=== PATIENT | female | born 1935 | race Caucasian/White ===

== ENCOUNTER → 2021-01-10 15:16 | Outpatient (BNVA) | payer MEDICARE, SELFPAY | PROVIDERS: Family Provider Nurse Practitioner Family; Visit Provider Nurse Practitioner Family | DX: Z79.01 Long term (current) use of anticoagulants (principal) | CPT/HCPCS: 85610 ==

== ENCOUNTER → 2021-01-13 09:20 | Outpatient (BNVA) | payer MEDICARE, SELFPAY | PROVIDERS: Family Provider Nurse Practitioner Family; Visit Provider Nurse Practitioner Family | DX: Z79.01 Long term (current) use of anticoagulants (principal) | CPT/HCPCS: 85610 ==

== ENCOUNTER → 2021-05-21 07:58 | Outpatient (BNVA) | payer MEDICARE, SELFPAY | PROVIDERS: Family Provider Nurse Practitioner Family; PCP Nurse Practitioner Family; Visit Provider Nurse Practitioner | DX: M54.16 Radiculopathy, lumbar region (principal); Z98.890 Other specified postprocedural states | CPT/HCPCS: 99204 ==

== ENCOUNTER 2021-05-27 10:51 | Outpatient (CLI) | payer MEDICARE, SELFPAY ==
--- NOTE | 2021-05-27 11:00 | MR_ITS ---
WS: [id number] MRI LUMBAR SPINE NONCONTRAST TECHNIQUE: Sagittal T1, T2 and STIR imaging. Axial T1 and T2 imaging. CLINICAL INFORMATION: M54.16 - Radiculopathy, lumbar region COMPARISON: MRI FINDINGS: Mild lumbar curve. No acute compression. No high-grade central canal stenosis. Prior postoperative ch anges laminectomy defects L2-L3 L3-L4 L4-L5. Disc space narrowing worse at L3-L5. Tiny disc protrusio ns in the lower thoracic spine. L1-L2: Mild annular bulging. Narrowing of the left subarticular recess. Moderate facet arthropathy. M ild left foraminal narrowing. L2-L3: Mild disc bulging and osteophytic ridging. Impingement on the traversing L3 nerve roots bilate rally. Moderate facet arthropathy. Mild left foraminal narrowing. Laminectomy defects. L3-L4: Laminectomy defects. Mild annular bulging with slight impingement on the right subarticular re cess and traversing right L4 nerve root. Mild right foraminal narrowing. Moderate facet arthropathy. L4-L5: Mild disc bulging with slight impingement on the traversing L5 nerve roots bilaterally. Mild c entral canal stenosis. Laminectomy defects. Moderate facet arthropathy. Moderate right foraminal narr owing. L5-S1: Mild disc bulging and osteophytic ridging. Slight impingement on the traversing left S1 nerve root. Mild left and no right foraminal narrowing. Moderate facet arthropathy. Bilateral renal cysts. Hemorrhagic right renal cyst with hematocrit level. Small disc protrusions in the cervical spine at C5-C6 and C6-C7 with slight contact of the cervical cord and mild central canal stenosis. Visualized pelvic bony structures: Normal. Paravertebral soft tissues: Normal. MR/MR lumbar spine wo con* [id number] IMPRESSION: 1. Mild lumbar curve. No acute compression. 2. Prior laminectomy defects L2-L4. 3. Mild central canal stenosis L4-5 due to disc bulging and osteophytic ridgin g with moderate facet arthropathy. Impingement on the right greater than left L 5 nerve roots at this level. 4. Moderate right L4-5 foraminal narrowing contacts the exiting right L4 nerve root. 5. Mild left L5-S1 foraminal narrowing. 6. Narrowing of the left L1-2 and right L2-3 subarticular recess. 7. Slight impingement on the right L3-4 subarticular recess with mild right L3 -4 foraminal narrowing.
== END 2021-05-27 10:52 | disposition home or self-care (01) ==
PROVIDERS: PCP Nurse Practitioner Family; Visit Provider Nurse Practitioner
DX: M54.16 Radiculopathy, lumbar region (principal); M96.1 Postlaminectomy syndrome, not elsewhere classified; M48.061 Spinal stenosis, lumbar region without neurogenic claudication
CPT/HCPCS: 72148

== ENCOUNTER → 2021-07-17 11:59 | Outpatient (BNVA) | payer MEDICARE, SELFPAY | PROVIDERS: PCP Nurse Practitioner Family; Referring Provider Nurse Practitioner; Visit Provider Specialist | DX: G62.89 Other specified polyneuropathies (principal) | CPT/HCPCS: 95909 ==

== ENCOUNTER → 2021-07-21 16:31 | Outpatient (BNVA) | payer MEDICARE, SELFPAY | PROVIDERS: PCP Nurse Practitioner Family; Visit Provider Specialist | DX: G62.9 Polyneuropathy, unspecified (principal) | CPT/HCPCS: 82607; 82746; 83921; 84260; 84443; 85651; 86140 ==

== ENCOUNTER → 2021-07-29 13:50 | Outpatient (BNVA) | payer MEDICARE, SELFPAY | PROVIDERS: PCP Nurse Practitioner Family; Referring Provider Specialist; Visit Provider Orthopaedic Surgery | DX: M54.16 Radiculopathy, lumbar region (principal) | CPT/HCPCS: 72110 ==

== ENCOUNTER → 2021-09-25 12:31 | Outpatient (BNVA) | payer MEDICARE, SELFPAY | PROVIDERS: PCP Nurse Practitioner Family; Visit Provider Orthopaedic Surgery | DX: Z01.812 Encounter for preprocedural laboratory examination (principal); Z20.822 Contact with and (suspected) exposure to COVID-19 | CPT/HCPCS: 87635 ==

== ENCOUNTER 2021-09-29 11:47 | Inpatient (IN) | payer MEDICARE, SELFPAY ==
[2021-09-25 11:05] VITALS: BMI 31.7
--- NOTE | 2021-09-25 12:19 | ANES.PREANE2 ---
Pre-Anesthetic Assessment Pre-Anesthetic Assessment: Height/Weight: Height 1.63 m Weight 83.915 kg Proposed Procedure: Operation Date: 09/29/21 07:00 Proposed Procedures p Posterior Lumbar Interbody Fusion T10 pelvis L3/4 L4/5 40098 85495 X6 50053 95058 71744 00950 14852(Not Applicable) - Candido Lluvia Lauryn, DO s Lumbar Spine Decompression L3/4(Not Applicable) - Candido H Lauryn, DO Was Beta Dain taken within 24 hours: Yes Was Clonidine taken within 24 hours: N/A Social: Social History: No alcohol and No tobacco Comment: Takes Roxana (THC) oil Exam: Pre-Anes Outpt Exam: alert, oriented x 3, clear to auscultation bilaterally and regular rate & rhythm Airway: Submandibular: WNL Cervical ROM: WNL Dentition: Partials CV/HEM: CV/HEM: Anemia, DVT (PE--Xarelto) and HTN Comments: Recent Stress test/cath unremarkable for coronary dz, EF 63% Metabolic: Metabolic: Morbid obesity Musc/skel: Musc/skel: Lower Back Pain Neuropsych: Neuropsych: Anxiety, Depression and Neuropathy Anesthetic Plan: ASA status: 3 Anesthesia: General Other: Plan A.line, type and cross (OK to transfuse) Risk of > 500 ml blood loss (7ml/kg in children): Yes, adequate IV access and fluids planned PFSH Anesthesia PFSH: Medical History Chronic back pain COPD (chronic obstructive pulmonary disease) Depression with anxiety Hx of blood clots Hyperlipidemia Hypertension Lumbar radiculopathy Restless leg syndrome Surgical History H/O: hysterectomy History of back surgery Social History History of recent travel: No Data Anesthesia Cardiac Studies: No Data to Display
[2021-09-29] VITALS (37 sets, daily range): BP systolic 90–132; BP diastolic 44–111; PULSE 70–104; RESP 12–20; TEMP 36.4–37.1; O2SAT 90–100; BMI 31.7
--- NOTE | 2021-09-29 | XR_ITS ---
WS: [id number] C-ARM RADIOGRAPHS LUMBAR SPINE; 9 IMAGES HISTORY: fusion and decompression COMPARISON: None available. Intraoperative imaging during extensive thoracolumbar fusion. Quality of examination is not sufficien t to determine levels. Rods and screws extend from the mid thoracic spine into the sacrum. Large lami nectomy defects are noted centrally throughout the lumbar spine. XR/XR lumbar spine 2-3V* [id number] IMPRESSION: Extensive posterior fusion extending from the thoracic spine to the sacrum.
--- NOTE | 2021-09-29 | SCC_ITS ---
Procedure Done: 1. L5/S1 Interbody fusion with posterolateral fusion 2. Instrumentation T10-S1 3. Lumbopelvic fixation (instrumentation 4. Cage at L5/S1 5. Laminectomy L5 6. use of autograft from same incision 7. allograft 8. Bone marrow aspirate from right iliac crest 9. Computer navigation / Stereotactic for the spine 11 seconds of fluoroscopic guidance, for a cumulative dose of 80.2 mGy, was provided to Dr. Combs by the radiology department. C-arm images of the lumbar spine were saved for the patient's permanent record. [facility]ITALT[facility]
--- NOTE | 2021-09-29 06:13 | ECG_ITS ---
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 Measurements Intervals [place] Rate: 109 P: AL: QRS: 27 QRSD: 88 T: 60 QT: 326 QTc: 439 Interpretive Statements ATRIAL FIBRILLATION WITH RAPID VENTRICULAR RESPONSE WITH ABERRANT CONDUCTION OR VENTRICULAR PREMATURE COMPLEXES NONSPECIFIC T-WAVE ABNORMALITY ABNORMAL RHYTHM ECG Compared to ECG 01/26/2019 09:56:59 Ventricular premature complex(es) now present Aberrant conduction of supraventricular beat(s) now present T-wave abnormality now present Sinus rhythm no longer present Electronically Signed On 09-29-2021 20:07:36 RELATIONSHIP ADVISOR by Glenna Coelho M.D. [id number]
[2021-09-29] MEDS: sodium chloride 0.9% 1,000 ML 30 ML IV (06:32)
[2021-09-29] MEDS: metoprolol tartrate 1 mg/1 mL SDV 5 mL 5 MG IVP (06:52)
[2021-09-29] MEDS: fentaNYL 50 mcg/mL INJ 2mL IVP (06:54)
--- NOTE | 2021-09-29 06:55 | ANES.PAUD2 ---
Pre-Anesthetic Update Pre-Anesthetic Assessment: Date of Surgery/Procedure: 09/29/21 Preop Diagnosis: DDD, lumbar radiculopathy Proposed Procedure: Operation Date: 09/29/21 07:00 Proposed Procedures p Posterior Lumbar Interbody Fusion T10 pelvis L3/4 L4/5 01285 26036 X6 31594 02707 19787 51000 90521(Not Applicable) - Candidoche Teixeira Caron, DO s Lumbar Spine Decompression L3/4(Not Applicable) - Candido H Lauryn, DO Any changes to Pre-Anesthetic Assessment?: Yes Changes from Pre-Anesthetic Assessment: A fib w/ RVR - Patient had recent stress test negative for ischemia this month and EF of 63%, currently on metoprolol and was taking xarelto for DVT. Discussed with Dr. Meliton MD. Patient should be able to proceed with surgery with rate control Last Intake: Intake Last Liquid Date 09/28/21 Last Liquid Time 17:00 Last Solid Date 09/28/21 Last Solid Time 17:00 Vitals: Temperature 98.3 F 09/29/21 06:07 Temperature Source Temporal Artery S can 09/29/21 06:07 Pulse Rate 93 09/29/21 06:07 Respiratory Rate 18 09/29/21 06:07 Blood Pressure 132/111 09/29/21 06:07 Blood Pressure Kathy n 118 09/29/21 06:07 Pulse Oximetry 95 09/29/21 06:07 Oxygen Delivery Me thod 09/29/21 06:07 Exam: Pre-Anes Outpt Exam: alert, oriented x 3, clear to auscultation bilaterally and regular rate & rhythm Cardiac Studies: No Data to Display
[2021-09-29 07:04] LABS: Basophils % 0.5 %; Eosinophils # 0.1 10^3/uL (0.0-0.8); Eosinophils % 1.8 %; Hematocrit 44.8 % (37.0-47.0); Hemoglobin 13.6 g/dL (11.5-15.3); Lymphocytes # 1.7 10^3/uL (0.8-4.8); Lymphocytes % 22.8 %; Mean Corpuscular HGB Conc 30.4 g/dL (30.0-36.0); Mean Corpuscular Hemoglobin 31.2 pg (28.0-34.0); Mean Corpuscular Volume 102.8 fl (81-99); Mean Platelet Volume 10.2 fL (7.4-10.4); Monocytes # 0.8 10^3/uL (0.2-0.9); Monocytes % 10.7 %; Neutrophils # 4.74 10^3/uL (1.8-7.7); Neutrophils % 63.9 %; Nucleated Red Blood Cells % 0 %; Platelet Count 202 10^3/cmm (130-400); Red Blood Count 4.36 10^6/uL (4.1-5.3); Red Cell Distribution Width 12.5 % (12.1-15.1); White Blood Count 7.4 10^3/uL (4.0-10.0)
[2021-09-29 07:15] LABS: Anion Gap 13.8 (5-19); Blood Urea Nitrogen 25 mg/dL (8-23); Calcium 8.9 mg/dL (8.5-10.5); Carbon Dioxide 29 mmol/L (22-29); Chloride 107 mmol/L (98-107); Glucose 114 mg/dL (65-115); Osmolality Calculated 305 mOsm/kg (285-295); Potassium 4.8 mmol/L (3.5-5.1); Sodium 145 mmol/L (136-145)
--- NOTE | 2021-09-29 07:24 | W.PM.OPSUD ---
Surgery/Procedure H&P Update DATE OF PROCEDURE: September 29, 2021 DATE H&P PERFORMED: 09/09/21 H&P UPDATE INFORMATION: I have reviewed H&P completed within last 30 days, I have examined patient prior to procedure and No changes to prior documentation PREOP DIAGNOSIS: DDD, lumbar radiculopathy PLANNED PROCEDURE: Operation Date: 09/29/21 07:00 Proposed Procedures p Posterior Lumbar Interbody Fusion T10 pelvis L3/4 L4/5 72671 59591 X6 13678 73031 77976 10144 26144(Not Applicable) - DO chirag Hernandez Lumbar Spine Decompression L3/4(Not Applicable) - Candido Combs DO
[2021-09-29] MEDS: clindamycin 900 MG/50 ML PREMIX 100 MG IV ×3 (07:30→22:51)
--- NOTE | 2021-09-29 10:08 | SUR.OPER ---
called and notified him of surgical start and surgical progress.
[2021-09-29 10:48] LABS: Hematocrit 35.6 % (37.0-47.0)
--- NOTE | 2021-09-29 11:07 | SUR.OPER ---
Called notified him of surgical progress.
[2021-09-29] MEDS: vancomycin 1,000 MG SDV 1000 MG (11:08)
[2021-09-29] MEDS: heparin, porcine 1,000 unit/mL INJ 10 mL 10000 UNIT IRRIGATION (11:09)
--- NOTE | 2021-09-29 12:02 | P.OP_ITS ---
Operative Report Date of procedure: September 29, 2021 Pre-op Diagnosis: degen scoliosis; neurogenic cladication Post-op diagnosis: same Procedure Done: 1. L5/S1 Interbody fusion with posterolateral fusion 2. Instrumentation T10-S1 3. Lumbopelvic fixation (instrumentation 4. Cage at L5/S1 5. Laminectomy L5 6. use of autograft from same incision 7. allograft 8. Bone marrow aspirate from right iliac crest 9. Computer navigation / Stereotactic for the spine Surgeon: Candido Combs Television Production Clerk: aKilash Barrera Television Production Clerk: The medical surgical tech, Kailash Barrera, PAC was needed for his expertise under the microscope. He was important and necessary throughout the procedure to complete in a safe and timely manner. He assisted with patient positioning prepping and draping tissue retraction suctioning of the operative field protection of the dural sac and tissue closure Anesthesia: General Estimated blood loss (mL): 1,000 Condition: stable Disposition: PACU Procedure: 1. L5/S1 Interbody fusion with posterolateral fusion 2. Instrumentation T10-S1 3. Lumbopelvic fixation (instrumentation 4. Cage at L5/S1 5. Laminectomy L5 6. use of autograft from same incision 7. allograft 8. Bone marrow aspirate from right iliac crest 9. Computer navigation / Stereotactic for the spine Patient is brought to the operative suite. After undergoing anesthesia, the patient had neuro monitoring attached. Patient was then placed in the prone position on the Pillo table. All areas of impingement were well-padded. Patient was then prepped and draped in the normal sterile fashion. Skin incision was then made oFrom T10 to sacrum. Subperiosteal dissection was made out to the transverse processes of T10 down to L5 bilaterally as well as the sacral ala bilaterally. Once the exposure was complete attention was then brought to getting Bone marrow aspirate. The [employer] bone marrow aspirate kit was used to aspirate bone marrow aspirate. This was done by using the sharp probe to open up the bone right iliac crest. Aspiration was performed and then the blunt probe was then used to dissect down to through the bone tunnel. An aspirating well drawn back a millimeter approximately 20 cc of bone marrow aspirate was used. And mixed with the allograft and autograft bone that will be used. Next attention was brought to placing the fiducial for the computer navigation for the spine. Stab incision is made over the right iliac crest the fiducial pin was inserted. A second pin was also inserted. And then the fiducial was attached. This was linked into the computer. And then the C-arm was brought into spin and all this information was linked in the computer in order to facilitate using computer navigation for the spine. The technique for placing the pedicle screws was to use a drill followed by the gearshift probe connecte to computer navigation. Followed by the ball probe to feel the superior inferior medial lateral baez of the pedicles. Then placement of the screws using computer navigation. Was done at each pedicle. Screws were placed at T10 bilaterally down to S1 bilaterally. The L4 screw on the right was skipped becasue pedicle was felt to be too narrow. Iliac screws were placed using the computer navigation. These were Sacral Ala iliac screws placed into the ilac crests throught the appropriate bone column. Same technique as pedicle screws were used. These were 70 mm screws Next attention was brought to performing the laminectomy ofL5. This was done using the high-speed bur Kerrisons and curettes. Once the lamina was removed and then attention was brought to performing a partial facetectomy on the contralateral side. This was done again using the high-speed bur curettes and Kerrisons. The ligamentum flavum was taken down bilaterally from L5 to S1. Attention was then brought to the facet on the ipsilateral side. The facet was taken down. The S1 nerve was decompressed as it passed around the S1 pedicle. The laminectomy was done for purposes of decompressing the nerve as well as placement of the cage. The L5 nerve was identified as it traversed through the L5/S1 foramen. The thecal sac was identified and retracted. The L5/S1 disc space was identified. Using a knife the disc base was opened. And then sequential marisabel were placed. The first shaver was a 6 and the last shaver was a 8. Using a pituitary and down going curette the endplates were scraped and disc material was removed from the space. Once adequate decompression of the disc base was felt to be had. Osteoamp sponge was packed into the anterior aspect of the disc base. Then a size 8 cage from [employer] was placed after packing osteoamp into the cage. While placing the cage the thecal sac and S1 nerve was protected. C arm was used to ensure that the cages placed in the appropriate position. Attention was then brought to attaching the rods to the screws placed in the LT10 bilaterally down to S1 bilaterally also attaching onto the iliac screws. Caps were torqued into position. Locking the construct in place. Wound was copiously irrigated and then attention was brought to decorticating the facets and transverse processes laterally. Bone that was taken down from the lamina was used along with osteoamp fibers and sponges were packed into the lateral gutters along the facet joints. This was done bilaterally. Wound was then closed in a layered fashion starting with the thoracolumbar fascia. 0-vicryl was used the sub cutaneous tissue was closed with 2-0 vicryl and skin with 4-0 monocryl. Glue was then used to seal the skin and a steril dressing was applied. Patient was then placed in the supine position. The endotracheal tube was removed and patient was transferred to the PACU in stable condition.
--- NOTE | 2021-09-29 12:48 | PC.NURSE ---
18g IV in left ac placed by FINISHING RANGE SUPERVISOR during surgery
[2021-09-29 13:14] LABS: Hematocrit 32.8 % (37.0-47.0)
[2021-09-29 13:52] LABS: ABG PCO2 57.9 mmHg (35-45); ABG PH Result 7.27 (7.35-7.45); Arterial Blood Gas Hematocrit 31.5 % (37-47); Base Excess ABG -1.2 mmol/L (-2.0-2.0); Blood Gas Allen Test Pos; Blood Gas Sample Type Arterial; Carboxyhemoglobin 0.9 %THgb (0.4-20.1); HCO3 ABG 26.4 mmol/L (22-26); HGB O2 Sat 92.1 % (95-100); Ionized Calcium Level - ABG 1.2 mmol/L (1.1-1.4); Methemoglobin 1.2 % (0.4-1.5); PO2 ABG 73.3 mmHg (80.0-100.0); Potassium Level - ABG 4.3 mmol/L (3.5-5.0); Total Hemoglobin 10.3 g/dL (12-16)
--- NOTE | 2021-09-29 13:52 | P.CONIM_ITS ---
Providers/Reason For Consult Consulting Physician/Specialty*: Cameron Garcia MD, hospitalist Reason for Consult*: Medical management Attending Physician: Candido Combs DO Primary Care Provider: June Merchant History of Present Illness History of Present Illness Maria Teresa Woodruff is a 86 year old female who presented with chronic back pain for surgery today per Dr. Combs. From my understanding, she did not take her beta-marie today. She received Lopressor 5 mg IV prior to start of surgery. As surgery was underway she had a fair amount of blood loss, and bradycardia developed. She received atropine, as well as some epinephrine. This stabilized prior to her transfer to the PACU. Patient is not able to give a significant history currently secondary to sleepiness. Vital signs are stable. Ultimately estimated blood loss was 1100 cc and she received 250 cc of colloid, 2200 cc of isotonic fluid. Review of Systems General: Reports: ROS unobtainable due to mental status (Patient sleepy, recovering from sedation) Meds/Allergies Home Medications and Allergies Home Medications Medication Instructions Recorded Confirmed Last Taken Type metoprolol tartrate 25 mg tablet 12.5 mg PO BID 01/14/21 09/29/21 09/28/21 17:00 History potassium chloride 10 mEq 10 meq PO BID 01/14/21 09/29/21 09/28/21 07:00 History capsule,extended release rivaroxaban 20 mg tablet 20 mg PO DAILY #90 tab 01/14/21 09/29/21 09/25/21 Rx ropinirole 4 mg tablet 4 mg PO .hs tab 01/14/21 09/29/21 09/28/21 19:30 History venlafaxine 150 mg tablet,extended 150 mg PO DAILY 01/14/21 09/29/21 09/28/21 07:00 History release 24 hr ergocalciferol (vitamin D2) 1,250 1,250 mcg PO DAILY 05/21/21 09/29/21 09/28/21 History mcg (50,000 unit) capsule hydrocodone 5 mg-acetaminophen 325 1 tab PO Q6H PRN 05/21/21 09/29/21 09/25/21 History mg tablet clobetasol 0.05 % topical gel 1 applic TOPICAL DAILY 09/09/21 09/29/21 09/27/21 History losartan 25 mg tablet 25 mg PO DAILY 09/09/21 09/29/21 09/28/21 07:00 History meloxicam [Mobic] 1 mg PO DAILY 09/25/21 09/29/21 09/28/21 07:00 History Allergies Allergy/AdvReac Type Severity Reaction Status Date / Time amoxicillin Allergy rash Verified 09/29/21 05:59 morphine Allergy nausea, Verified 09/29/21 05:59 hyper Penicillins Allergy rash Verified 09/29/21 05:59 Tetanus Vaccines and Toxoid Allergy unk Verified 09/29/21 05:59 Current Medications Current Medications Generic Name Dose Route Start Last Admin Trade Name Freq PRN Reason Stop Dose Admin Fentanyl 50 mcg 09/29/21 05:40 09/29/21 06:54 Fentanyl 50 Mcg/Ml Inj 2ml IVP 50 mcg Q10M PRN Administration Preop Pain Sodium Chloride 1,000 mls @ 30 mls/hr 09/29/21 05:45 09/29/21 11: Sodium Chloride 0.9% IV 09/30/21 05:44 Infused .Q24H LV Infusion PFSH Acute PFSH: Medical History (Updated 09/29/21 @ 14:05 by Cameron Garcia MD) Atrial fibrillation Chronic back pain COPD (chronic obstructive pulmonary disease) Uses trilogy at night with 2 L. Typically not on oxygen during day. Coronary artery disease Depression Depression with anxiety DVT (deep venous thrombosis) History of cancer of vulva Hx of blood clots Hyperlipidemia Hypertension Lumbar radiculopathy Obstructive sleep apnea Pulmonary embolism Restless leg syndrome Surgical History (Updated 09/29/21 @ 13:56 by Cameron Garcia MD) H/O: hysterectomy History of back surgery History of coronary artery stent placement History of knee replacement History of tonsillectomy Presence of vena cava filter Family History (Updated 09/29/21 @ 13:56 by Cameron Garcia MD) Other Cancer Social History (Updated 09/29/21 @ 13:56 by Cameron Garcia MD) Smoking and tobacco status: former smoker Alcohol intake: current Alcohol intake frequency: few times a month History of recent travel: No Vitals/I&O/Wt Last Vital Signs Temp 98.5 F 09/29/21 12:42 Pulse 75 09/29/21 13:45 Resp 15 09/29/21 13:45 BP 118/78 09/29/21 13:45 Pulse Ox 95 09/29/21 13:45 09/28/21 09/29/21 09/29/21 22:59 06:59 14:59 Intake Total 2350 / 2350 Output Total 1450 / 1450 Balance 900 / 900 Physical Exam Narrative: EXAM NARRATIVE: General exam is a sleepy female, who will awaken to name and follow a few brief instructions. HEENT: Pupils were round. Oropharynx clear. Neck is supple no lymphadenopathy or thyromegaly Cardiovascular irregular, irregular with controlled rate Lungs diminished breath sounds bilaterally but no wheezes or crackles. Urinary Catheter Management^: Long: Cath Placed During This Visit: yes Urinary Catheter Date of Insertion: 09/29/21 Urinary Catheter Time of Insertion: 07:45 Data Other Data: Other data: EKG demonstrated atrial fibrillation, normal axis, rate of 109 TSH normal July 2021 Baseline hemoglobin 13.6, now 10 following surgery ABG demonstrates a pH of 7.27, PCO2 58, PO2 73 Covid PCR not detected September 25 A&P Assessment and plan (1) Lumbar stenosis with neurogenic claudication: Status post fusion with laminectomy, instrumentation and cage Status: Acute (2) History of pulmonary embolism: Xarelto held prior to surgery. Significant amount of estimated blood loss at 1100 cc and already 200 out of drain. Hold on further anticoagulation until tomorrow's reassessment. Note that she has an IVC filter. Status: Acute (3) Bradycardia: Multifactorial. Although she held her metoprolol prior to surgery she received Lopressor IV prior to surgery. She then had significant estimated blood loss. Currently her heart rate is stabilized. She did receive atropine, and epinephrine to improve bradycardia in the 30s during surgery. She did not have evidence of heart block. Telemetry Hold metoprolol currently Status: Acute (4) Anemia: Consistent with acute postoperative blood loss anemia Continue to monitor closely, repeating hemoglobin tomorrow. Sooner if significant output from drain. If anemia is symptomatic, or less than 7 transfuse. Status: Acute (5) COPD (chronic obstructive pulmonary disease): Has chronic COPD for which she uses trilogy at night. History of some CO2 narcosis in the past. In the postoperative period she has evidence of acute hypercarbic respiratory failure, superimposed on what sounds like chronic respiratory failure. BiPAP is going to be initiated, and as she recovers from anesthesia this can likely be discontinued other than when she is sleeping. She may use her home trilogy during this time. Status: Acute (6) Atrial fibrillation: Hold anticoagulation and beta-marie currently. We will likely need to reinstitute metoprolol tomorrow Telemetry Status: Acute Additional A&P Information Multiple other medical problems as outlined by past medical history CODE STATUS per primary. Patient too sleepy for me to get an idea of what this desire is. Secondary to significant blood loss during surgery, another 200 and the drain would hold off on anticoagulation currently and consider tomorrow if no significant bleeding. Consult Attestations Medical Necessity Statement: As per primary Time Spent in Patient Care: Greater than 35 minutes Coding Level of Care Code Acute Refrigeration Unit Repairer for Garett Leija Diagnoses Lumbar stenosis with neurogenic claudication M48.062 History of pulmonary embolism Z86.711 Bradycardia R00.1 Anemia D64.9 COPD (chronic obstructive pulmonary disease) J44.9 Atrial fibrillation I48.91
[2021-09-29 13:53] LABS: Alveolar-Arterial Oxygen Gradi 3.7 mmHg (5-10); Blood Gas Operator Identificat MONRO; Blood Gas Sample Site Radial, right; Oxygen Device NC
--- NOTE | 2021-09-29 14:30 | PC.NURSE ---
Art line removed and pressure dressing applied to right wrist after pressure was held to site.
--- NOTE | 2021-09-29 14:51 | ANE.PACU2 ---
Inpatient post-anesthesia follow up: Airway intact: Yes Vital signs: Temperature 98.1 F Pulse Rate 76 Respiratory Rate 18 Blood Pressure 107/65 Pulse Oximetry 92 Oxygen Delivery Me thod Nasal Cannula Oxygen Flow Rate 1 Fraction of Inspir ed Oxygen Hydration adequate: Yes Nausea and vomiting: No Pain level: 2 Mental status: Baseline
--- NOTE | 2021-09-29 15:58 | PC.RESP ---
PT WAS STILL ASLEEP . Unable to do IS. This was done at 1340
[2021-09-29] MEDS: lactated ringers 1,000 ML 90 ML IV (16:27)
--- NOTE | 2021-09-29 16:36 | PC.PT ---
Patient just recently in the room, discussed with patient's nurse, patient apparently lost a lot of blood during surgery and is currently not alert and in much pain, and to receive pain medicines, due to all above it was decided to hold off on PT at this time, will reattempt in a.m., after patient has received pain medicines.
[2021-09-29] MEDS: HYDROcodone-acetaminophen 5-325 mg Tablet PO ×2 (16:44→20:53)
[2021-09-29] MEDS: docusate sodium 100 mg Capsule PO (16:44)
[2021-09-29] MEDS: ketorolac 30 mg/mL INJ IVP (18:24)
[2021-09-29] MEDS: ropinirole 2 mg Tablet 4 MG PO (20:46)
[2021-09-29] MEDS: acetaminophen 325 mg Tablet 650 MG PO (23:48)
[2021-09-30] VITALS (11 sets, daily range): BP systolic 102–120; BP diastolic 47–72; PULSE 74–118; RESP 16–19; TEMP 36.3–37.2; O2SAT 90–99
[2021-09-30] MEDS: lactated ringers 1,000 ML 90 ML IV (02:15)
[2021-09-30] MEDS: HYDROcodone-acetaminophen 5-325 mg Tablet PO ×4 (03:38→18:38)
--- NOTE | 2021-09-30 05:38 | PC.NURSE ---
SHIFT SUMMARY Started shift with pt c/o signficant back pain. Has gotten better through night. Has received po Hydrocodone and Tylenol. BP has also improved through night. Is easily awakened and converses well with nurse. Has had home trilogy on. Dressing to medial back has remained C&D. ABD binder in place. Hemovac drain intact and has had 225ml total sanguinous output. Long in place. Taking po without nausea. IV infusing at 90ml/hr rate. Has been assisted with repositioning per pts request. Discussed spinal precautions with turning/getting OOB. Did get up to BSC this am with assist of 2. Pt thought she needed to have a BM but only passed gas. Did quite well with getting up. has stayed with tonight.
--- NOTE | 2021-09-30 06:51 | PM.PN ---
Documented by User: JANNETH Keith 09/30/21 06:56 Subjective Subjective: Interval history: POD 1 Patient was resting comfortably with family present. Denies any shortness of breath, chest pain, headaches. Mild back pain. Denies any leg pain. Vitals/I&O/Wt Last Vital Signs Temp 98.2 F 09/30/21 03:47 Pulse 114 H 09/30/21 05:51 Resp 16 09/30/21 03:47 BP 118/65 09/30/21 03:47 Pulse Ox 95 09/30/21 03:47 09/29/21 09/29/21 09/30/21 14:59 22:59 06:59 Intake Total 2350 / 2350 245 / 2595 1082 / 3677 Output Total 1450 / 1450 250 / 1700 725 / 2425 Balance 900 / 900 -5 / 895 357 / 1252 Weight last 48 hrs Weight 185 lb Physical Exam Narrative: EXAM NARRATIVE: Patient presents alert and oriented x3 with a good general appearance normal normal affect. Mild tenderness around the incisional site with the incision appears c/d. No signs of erythema or drainage. No signs of infection. Patient denies any fevers or chills. 5/5 motor strength both lower extremities with negative straight leg raise bilaterally. Calves are supple no medial thigh tenderness. Pulses are 1+ at the dorsalis pedis and posterior tibial region. Good capillary refill throughout normal sensation light touch both lower extremities. Urinary Catheter Management^: Long: Cath Placed During This Visit: yes Reason for Continuing Indwelling Catheter: Perioperative Use in Selected Surgeries Urinary Catheter Date of Insertion: 09/29/21 Urinary Catheter Time of Insertion: 07:45 Data : 09/30/21 06:42 09/30/21 06:42 A&P Assessment and plan (1) Acute blood loss as cause of postoperative anemia: Encouraged her to continue by physical therapy mobilize with a walker. Discontinue the Hemovac drain after physical therapy visit. Continue to work with laxative choice to help with bowel movement. We will discontinue the Long catheter. Based on her progress today will determine her discharge possibly for tomorrow. Status: Acute (2) Fusion of spine: Status: Acute Attestations Medical Necessity Statement*: Possibly tomorrow Coding Level of Care Code Acute [employer]worx Piping Designer for irvin Leija Diagnoses Acute blood loss as cause of postoperative anemia D62 Fusion of spine M43.20 Documented by User: Candido Combs DO 09/30/21 11:22 Physical Exam Urinary Catheter Management^: Long: Cath Placed During This Visit: no Data : 09/30/21 06:42 09/30/21 06:42 A&P Assessment and plan (1) Fusion of spine: S/P [id number] fusion up with PT d/c drain D/C planning possible chcf Status: Acute Coding Level of Care Code Acute [employer] Piping Designer for Garett Fwd Diagnoses Acute blood loss as cause of postoperative anemia D62 Fusion of spine M43.20
[2021-09-30 07:01] LABS: Basophils % 0.2 %; Hematocrit 27.7 % (37.0-47.0); Hemoglobin 8.3 g/dL (11.5-15.3); Lymphocytes # 1.4 10^3/uL (0.8-4.8); Lymphocytes % 11.6 %; Mean Corpuscular Hemoglobin 31.4 pg (28.0-34.0); Mean Corpuscular Volume 104.9 fl (81-99); Mean Platelet Volume 10.2 fL (7.4-10.4); Monocytes # 1.1 10^3/uL (0.2-0.9); Monocytes % 9.3 %; Neutrophils # 9.52 10^3/uL (1.8-7.7); Neutrophils % 78.7 %; Nucleated Red Blood Cells % 0 %; Platelet Count 140 10^3/cmm (130-400); Red Blood Count 2.64 10^6/uL (4.1-5.3); Red Cell Distribution Width 12.9 % (12.1-15.1); White Blood Count 12.1 10^3/uL (4.0-10.0)
[2021-09-30 07:23] LABS: Alanine Aminotransferase 18 U/L (0-33); Albumin Level 2.9 g/dL (3.5-5.2); Alkaline Phosphatase 86 IU/L (35-105); Anion Gap 10.4 (5-19); Aspartate Amino Transferase 31 U/L (0-32); Blood Urea Nitrogen 29 mg/dL (8-23); Calcium 7.5 mg/dL (8.5-10.5); Carbon Dioxide 27 mmol/L (22-29); Chloride 109 mmol/L (98-107); Globulin 1.6 g/dL (1.3-4.6); Glucose 122 mg/dL (65-115); Osmolality Calculated 301 mOsm/kg (285-295); Potassium 4.4 mmol/L (3.5-5.1); Sodium 142 mmol/L (136-145); Total Bilirubin 0.4 mg/dL (0.15-1.2); Total Protein 4.5 g/dL (6.6-8.7)
[2021-09-30] MEDS: docusate sodium 100 mg Capsule PO ×2 (08:19→16:51)
[2021-09-30] MEDS: venlafaxine ER (24HR) 150 mg Capsule PO (08:19)
[2021-09-30] MEDS: clindamycin 900 MG/50 ML PREMIX 100 MG IV ×2 (08:25→22:30)
[2021-09-30] MEDS: metoprolol tartrate 25 mg Tablet PO ×2 (09:33→20:48)
--- NOTE | 2021-09-30 10:47 | PM.PN ---
Subjective Subjective: Interval history: Maria Teresa reports she is a little sore in her back, otherwise doing okay. Does not feel dizzy, nauseous. spent the night and is happy with her care. Medications: Reviewed: Yes Vitals/I&O/Wt Last Vital Signs Temp 97.9 F 09/30/21 08:00 Pulse 111 H 09/30/21 08:44 Resp 19 H 09/30/21 08:44 BP 110/52 09/30/21 08:00 Pulse Ox 92 09/30/21 08:44 09/29/21 09/30/21 09/30/21 22:59 06:59 14:59 Intake Total 245 / 2595 1082 / 3677 50 / 50 Output Total 250 / 1700 725 / 2425 Balance -5 / 895 357 / 1252 50 / 50 Weight last 48 hrs Weight 83.915 kg Physical Exam Narrative: EXAM NARRATIVE: General exam is a sleepy female, awakens easily and is conversant Neck is supple no lymphadenopathy or thyromegaly Cardiovascular irregular, irregular with controlled rate Lungs diminished breath sounds bilaterally but no wheezes or crackles. Abdomen is soft, positive bowel sounds Extremities no cyanosis clubbing or edema Skin no rash Neuro no foot drop, no obvious focal deficits. Urinary Catheter Management^: Long: Cath Placed During This Visit: yes Reason for Continuing Indwelling Catheter: Perioperative Use in Selected Surgeries Urinary Catheter Date of Insertion: 09/29/21 Urinary Catheter Time of Insertion: 07:45 Data : 09/30/21 06:42 09/30/21 06:42 A&P Assessment and plan (1) Lumbar stenosis with neurogenic claudication: Status post fusion with laminectomy, instrumentation and cage, postoperative day #1 Status: Acute (2) History of pulmonary embolism: Xarelto held prior to surgery. Significant amount of estimated blood loss during and after surgery. Anticoagulation held initially. Note that she has an IVC filter. Start Xarelto 15 mg p.o. daily today. Status: Acute (3) Bradycardia: Multifactorial. Although she held her metoprolol prior to surgery she received Lopressor IV prior to surgery. She then had significant estimated blood loss. Currently her heart rate is stabilized. She did receive atropine, and epinephrine to improve bradycardia in the 30s during surgery. She did not have evidence of heart block. Telemetry shows no bradycardia overnight Restart the patient's home metoprolol Status: Acute (4) Anemia: Consistent with acute postoperative blood loss anemia Continue to monitor closely, repeating hemoglobin tomorrow. Sooner if significant output from drain. If anemia is symptomatic, or less than 7 transfuse. Currently hemoglobin is 8.3 Status: Acute (5) COPD (chronic obstructive pulmonary disease): Has chronic COPD for which she uses trilogy at night. History of some CO2 narcosis in the past. In the postoperative period she has evidence of acute hypercarbic respiratory failure, superimposed on what sounds like chronic respiratory failure. BiPAP is going to be initiated, and as she recovers from anesthesia this can likely be discontinued other than when she is sleeping. She may use her home trilogy during this time. She appears to be back to her baseline. She is to use trilogy while sleeping. Status: Acute (6) Atrial fibrillation: Restart beta-marie and anticoagulation Telemetry Status: Acute Additional A&P Information Multiple other medical problems as outlined by past medical history CODE STATUS per primary. Xarelto for DVT prophylaxis Reduce fluids slightly Attestations Medical Necessity Statement*: As per primary Coding Level of Care Code Acute Automotive Exhaust Emissions Technician for Chg Fwd Diagnoses Lumbar stenosis with neurogenic claudication M48.062 History of pulmonary embolism Z86.711 Bradycardia R00.1 Anemia D64.9 COPD (chronic obstructive pulmonary disease) J44.9 Atrial fibrillation I48.91
--- NOTE | 2021-09-30 10:58 | PC.NURSE ---
Hemovac drain discontinued per orders with no s/s of complication.
[2021-09-30] MEDS: lactated ringers 1,000 ML 50 ML IV (11:58)
[2021-09-30] MEDS: clindamycin 900 MG/50 ML PREMIX 50 MG IV (15:48)
[2021-09-30] MEDS: rivaroxaban 10 mg Tablet 15 MG PO (20:47)
[2021-09-30] MEDS: ropinirole 2 mg Tablet 4 MG PO (20:48)
[2021-10-01] VITALS: BP 115/68; PULSE 81; RESP 20; TEMP 36.8; O2SAT 91
[2021-10-01 04:00] VITALS: BP 117/59; PULSE 92; RESP 22; TEMP 36.9; O2SAT 97
[2021-10-01] MEDS: HYDROcodone-acetaminophen 5-325 mg Tablet PO ×2 (05:12→10:18)
[2021-10-01 06:00] VITALS: PULSE 82
[2021-10-01 06:22] LABS: Basophils % 0.2 %; Eosinophils % 0.1 %; Hemoglobin 8.3 g/dL (11.5-15.3); Lymphocytes # 1.2 10^3/uL (0.8-4.8); Lymphocytes % 8.1 %; Mean Corpuscular HGB Conc 29.6 g/dL (30.0-36.0); Mean Corpuscular Hemoglobin 31.9 pg (28.0-34.0); Mean Corpuscular Volume 107.7 fl (81-99); Mean Platelet Volume 10.7 fL (7.4-10.4); Monocytes # 1.2 10^3/uL (0.2-0.9); Monocytes % 8.3 %; Neutrophils # 11.91 10^3/uL (1.8-7.7); Neutrophils % 82.8 %; Nucleated Red Blood Cells % 0 %; Platelet Count 136 10^3/cmm (130-400); Red Cell Distribution Width 13.1 % (12.1-15.1); White Blood Count 14.4 10^3/uL (4.0-10.0)
[2021-10-01] MEDS: clindamycin 900 MG/50 ML PREMIX 100 MG IV (06:22)
--- NOTE | 2021-10-01 06:35 | P.PN_ITS ---
Subjective Subjective: Interval history: POD 2 Pt awake and communicating this morning. She denies any headaches, chest pain or shortness of breath. She feels her leg pain is improving. She has some moderate back pain. Vitals/I&O/Wt Last Vital Signs Temp 98.4 F 10/01/21 04:00 Pulse 82 10/01/21 06:00 Resp 22 H 10/01/21 04:00 BP 117/59 10/01/21 04:00 Pulse Ox 97 10/01/21 04:00 09/30/21 09/30/21 10/01/21 14:59 22:59 06:59 Intake Total 984.5 / 984.5 130 / 1114.5 390 / 1504.5 Output Total 500 / 525 Balance 959.5 / 959.5 130 / 1089.5 -110 / 979.5 Weight last 48 hrs Weight 185 lb Physical Exam Narrative: EXAM NARRATIVE: Patient presents alert and oriented x3 with a good general appearance normal normal affect. Normal coordination normal stability. Mild tenderness around the incisional site with the incision appear to be healing nicely. No signs of erythema or drainage. No signs of infection. Patient denies any fevers or chills. 5/5 motor strength both lower extremities with negative straight leg raise bilaterally. Calves are supple no medial thigh tenderness. Pulses are 2+ at the dorsalis pedis and posterior tibial region. Good capillary refill throughout normal sensation light touch both lower extremities. Urinary Catheter Management^: Long: Cath Placed During This Visit: yes, but has since been removed by the nurse Reason for Continuing Indwelling Catheter: Not indwelling catheter Urinary Catheter Date of Insertion: 09/29/21 Urinary Catheter Time of Insertion: 07:45 Date Urinary Catheter Removed: 10/01/21 Time Urinary Catheter Discontinued: 06:33 Data : 10/01/21 05:25 09/30/21 06:42 A&P Assessment and plan (1) Fusion of spine: We will discontinue the Long catheter. Continue mobilization. Work on laxative choice to help with a bowel movement prior to her discharge today. We will see her back in the office in 1 week's time for follow-up. She will call if she is having problems. Status: Acute (2) Acute blood loss as cause of postoperative anemia: Status: Acute Attestations Medical Necessity Statement*: DC today Coding Level of Care Code Acute Angle Furnaceman for Chg Fwd Diagnoses Fusion of spine M43.20 Acute blood loss as cause of postoperative anemia D62
[2021-10-01 06:49] LABS: Anion Gap 10.5 (5-19); Blood Urea Nitrogen 26 mg/dL (8-23); Calcium 8.2 mg/dL (8.5-10.5); Carbon Dioxide 28 mmol/L (22-29); Chloride 108 mmol/L (98-107); Glucose 131 mg/dL (65-115); Osmolality Calculated 301 mOsm/kg (285-295); Potassium 4.5 mmol/L (3.5-5.1); Sodium 142 mmol/L (136-145)
--- NOTE | 2021-10-01 07:52 | P.DS_ITS ---
Discharge Providers Date of Admission: 09/29/21 11:47 Date of Discharge: October 01, 2021 Attending Provider at Admission: Candido Combs DO Attending Provider at Discharge: Candido Combs DO Primary Care Provider: June Merchant Diagnoses at Discharge Discharge Diagnosis (1) Fusion of spine: Status: Acute (2) Acute blood loss as cause of postoperative anemia: Status: Acute Reason for Visit Reason for Visit: fusion and decompression Hospital Course Hospital Course Patient was admitted on 09/29/2021. She had a T10 to the pelvis fusion. Her hospital stay was uneventful. She will be discharged on 10/01/2021. Physical Exam Narrative: EXAM NARRATIVE: Patient doing well was up ambulating with physical therapy yesterday. Numbness in her legs is improving. She is little stiff in the mornings. Urinary Catheter Management^: Long: Cath Placed During This Visit: yes, but has since been removed by the nurse Reason for Continuing Indwelling Catheter: Not indwelling catheter Urinary Catheter Date of Insertion: 09/29/21 Urinary Catheter Time of Insertion: 07:45 Date Urinary Catheter Removed: 10/01/21 Time Urinary Catheter Discontinued: 06:33 Discharge Data Data Completed and Pending: Completed Studies During Hospitalization Category Date Time Status XR lumbar spine 2 -3V* [id number] Routine Exams 09/29/21 Completed Labs from last 24 hours 10/01/21 10/01/21 09/30/21 05:25 05:25 06:42 WBC 14.4 H 12.1 H RBC 2.60 L 2.64 L Hgb 8.3 L 8.3 L Hct 28.0 L 27.7 L MCV 107.7 H 104.9 H MCH 31.9 31.4 MCHC 29.6 L 30.0 RDW 13.1 12.9 Plt Count 136 140 D MPV 10.7 H 10.2 Neut % (Auto) 82.8 78.7 Lymph % (Auto) 8.1 11.6 Daniels % (Auto) 8.3 9.3 Eos % (Auto) 0.1 0.0 Baso % (Auto) 0.2 0.2 Neut # (Auto) 11.91 H 9.52 H Lymph # (Auto) 1.2 1.4 Daniels # (Auto) 1.2 H 1.1 H Eos # (Auto) 0.0 0.0 Baso # (Auto) 0.0 0.0 Nucleated RBC % (a uto) 0 0 Nucleated RBCs # 0.0 0.0 Sodium 142 Potassium 4.5 Chloride 108 H Carbon Dioxide 28 Anion Gap 10.5 BUN 26 H Creatinine 0.8 GFR Calculation Not Reportable Glucose 131 H Calculated Osmolal ity 301 H Calcium 8.2 L Vitals: Last Vital Signs Temp 98.4 F 10/01/21 04:00 Pulse 82 10/01/21 06:00 Resp 22 H 10/01/21 04:00 BP 117/59 10/01/21 04:00 Pulse Ox 97 10/01/21 04:00 Discharge Plan Discharge Patient Disposition: Home Condition: Stable Prescriptions: New hydrocodone-acetaminophen 5-325 mg tablet 1 - 2 tab PO .Q4-6H Qty: 40 RF: 0 Continued potassium chloride 10 mEq capsule, extended release 10 meq PO BID RF: 0 ropinirole 4 mg tablet 4 mg PO .hs RF: 0 venlafaxine 150 mg tablet extended release 24hr 150 mg PO DAILY RF: 0 metoprolol tartrate 25 mg tablet 12.5 mg PO BID RF: 0 Xarelto 20 mg tablet 20 mg PO DAILY Qty: 90 RF: 3 ergocalciferol (vitamin D2) 1,250 mcg (50,000 unit) capsule 1,250 mcg PO DAILY RF: 0 hydrocodone-acetaminophen 5-325 mg tablet 1 tab PO Q6H PRN (Reason: Pain) RF: 0 clobetasol 0.05 % gel 1 applic topical DAILY RF: 0 losartan 25 mg tablet 25 mg PO DAILY RF: 0 meloxicam [Mobic] 15 mg tablet 1 mg PO DAILY RF: 0 Discharge Orders: Discharge Order (Routine); Ordered 10/01/21 Ordered By: Candido Combs Referrals: June Merchant DIRECTOR OF PRODUCT DESIGN [Other] [facility] [Outside] Candido Combs, DO [Physician] - Discharge Diet: Advance as tolerated Discharge Activity: Increase activity as tolerated Patient Instructions: Hydrocodone/Acetaminophen (By mouth), Lumbar Spinal Fusion (GEN), Opioid Safety Activity Restrictions/Additional Instructions: Thank you for [facility] for your care! The following is a list of instructions, from your provider, to follow upon your discharge to ensure you have the optimal recovery from your recent injury orsurgery. Follow-up care is a miguel part of your treatment and safety. Be sure to make and go to all appointments, and call your doctor if you are having problems. If you do not already have a follow-up appointment made, call Dr. TERRY] office in the next 1-3 days to make follow up appointment for September at [phone]. It is also a good idea to know your test results and keep a list of the medicines you take. Medications will be prescribed for you at your provider's discretion. These medications are to be used as instructed; if they are taken more often that prescribed they will not be refilled early and in most cases will not be refilled at all. > When a refill is needed,you should contact tala marte 2-3 business days before your prescription runs out. Medications will NOT be refilled by compensation vice president providers after hours! > Many pain medications contain Tylenol (Acetaminophen). Do not consume more than 4,000 mg of Tylenol per day in total with any combination ofmedications. > Pain medications can cause constipation. Please use an over the counter stool softener as directed, while taking pain medications. Consulty our local pharmacist with questions or recommendations on stool softeners. If constipation persists, contact our office or your primary care provider. > While under our care,you are not to receive pain medications or other controlled substances from any other provider unless our office is notified and approves. Any attempts to do so will result in refusal to prescribe any further pain medications and possible dismissal from our practice. ? Keep dressing on for the week ? Showering is permitted, however we ask that you do not take a bath, sit in a whirlpool / Jacuzzi, or go swimming for 1 month. For only the first 2 days after surgery, lt wilt be necessary for you to cover your wound/dressing with plastic and tape to keep it dry. ? Walking is essential for the healing process after surgery. We would like you to slowly advance your walking. This should be done on relatively flat clear ground (inside or out) or can be done on a treadmill. Remember this goal does not have to happen all at once, slowly increase your distance and duration. This can be broken into more more than one walk per day as tolerated. Patients who walk as directed after surgery rarely require Physical Therapy. In the unlikely event this issue arises your provider will direct hospital staff to make the appropriate arrangements. ? No lifting over 5 pounds {a gallon of milk) or bending/twisting until further notice. Each of these activities places an unnecessary amount of stress onto the body and can impede the delicate healing process. > Instead of bending at the waist, keep your back straight and bend at the knees. > Instead of twisting your torso, keep your back straight and turn your entire body with your feet. ? You may sleep in any position which makes you comfortable. Many patients find comfort sleeping in a reclining chair. It is not abnormal to have difficulty sleeping for the first several weeks following your surgery. We recommend trying Benadry! or Tylenol PM as directed to help with your sleeping difficulties. Both medications are over the counter and available withoutprescription. ? NO SMOKING!!! Smoking dramatically increases the probability of developing postoperative wound infections. ? Common complaints after lumbar and/or thoracic spine surgery include, but are not limited to: numbness and/or tingling in the legs, pain around the incision and surrounding tissues, muscle spasms, or stiffness of the middle to low back. Contact our office if these symptoms persist or if an acute change occurs. ? No driving for the first 3-5days, and not while taking narcotics [] until seen at your follow-up appointment and cleared. There are no restrictions for riding on short trips, however if you take a longer trip, arrangements should be made to make regular stops to get out of the vehicle and stretch . ? Swelling is an unfortunate event that will take place with any surgery and is the primary source of your postoperative discomfort. While walking and regular approved activities helps control inflammation, there are additional steps you can take to minimizeswelling. > Place ice over the surgical site and surrounding tissue for twenty minutes, followed by applying a low/medium heat (heating pad) for an additional twenty minutes every 1-2 hours as needed for painrelief. > You may use of over the counter anti-inflammatory medications (Ibuprofen, Motrin, Aleve, Advil, etc) as directed on the package label. These types of medicines wm significantly reduce the amount of discomfort you experience after surgery from swelling. It should be noted that if you have and allergy to any of these medications, or a history of ulcers or kidney disease yo u should consult you primary care provider prior to starting these medications. Discharge Attestations Time Spent in Discharge Care*: less than 30 min Quality Metrics Clinical Quality Measures During this hospital stay, did patient experience: None Coding Level of Care Code Acute Chg FW DC note Diagnoses Fusion of spine M43.20 Acute blood loss as cause of postoperative anemia D62
--- NOTE | 2021-10-01 07:56 | P.PN_ITS ---
Subjective Subjective: Interval history: No issues overnight. Still with some pain but improved from yesterday. Going home per orthopedics today. Medications: Reviewed: Yes Vitals/I&O/Wt Last Vital Signs Temp 98.4 F 10/01/21 04:00 Pulse 82 10/01/21 06:00 Resp 22 H 10/01/21 04:00 BP 117/59 10/01/21 04:00 Pulse Ox 97 10/01/21 04:00 09/30/21 10/01/21 10/01/21 22:59 06:59 14:59 Intake Total 130 / 1114.5 390 / 1504.5 Output Total 500 / 525 Balance 130 / 1089.5 -110 / 979.5 Weight last 48 hrs Weight 83.915 kg Physical Exam Narrative: EXAM NARRATIVE: General exam no distress, sitting, working with physical therapy. Telemetry does not show any significant bradycardia. Neck is supple no lymphadenopathy or thyromegaly Cardiovascular irregular, irregular with controlled rate Lungs diminished breath sounds bilaterally but no wheezes or crackles. Abdomen is soft, positive bowel sounds Extremities no cyanosis clubbing or edema Neurologic: No foot drop Urinary Catheter Management^: Long: Cath Placed During This Visit: yes, but has since been removed by the nurse Reason for Continuing Indwelling Catheter: Not indwelling catheter Urinary Catheter Date of Insertion: 09/29/21 Urinary Catheter Time of Insertion: 07:45 Date Urinary Catheter Removed: 10/01/21 Time Urinary Catheter Discontinued: 06:33 Data : 10/01/21 05:25 10/01/21 05:25 A&P Assessment and plan (1) Lumbar stenosis with neurogenic claudication: Status post fusion with laminectomy, instrumentation and cage, postoperative day #2 Discharging today Status: Acute (2) History of pulmonary embolism: Xarelto held prior to surgery. Significant amount of estimated blood loss during and after surgery. Anticoagulation held initially. Note that she has an IVC filter. Xarelto regular dose restarted on discharge. Status: Acute (3) Bradycardia: Multifactorial. Although she held her metoprolol prior to surgery she received Lopressor IV prior to surgery. She then had significant estimated blood loss. Currently her heart rate is stabilized. She did receive atropine, and epinephrine to improve bradycardia in the 30s during surgery. She did not have evidence of heart block. Telemetry shows no bradycardia following surgery. She is tolerating her home metoprolol for her atrial fibrillation. Status: Acute (4) Anemia: Consistent with acute postoperative blood loss anemia Hemoglobin 8.3, stable Status: Acute (5) COPD (chronic obstructive pulmonary disease): Has chronic COPD for which she uses trilogy at night. History of some CO2 narcosis in the past. In the postoperative period she has evidence of acute hypercarbic respiratory failure, superimposed on what sounds like chronic respiratory failure. BiPAP is going to be initiated, and as she recovers from anesthesia this can likely be discontinued other than when she is sleeping. She may use her home trilogy during this time. She appears to be back to her baseline. She is to use trilogy while sleeping. Status: Acute (6) Atrial fibrillation: Beta-marie and anticoagulation were restarted Telemetry Status: Acute Additional A&P Information Multiple other medical problems as outlined by past medical history CODE STATUS per primary. Xarelto for DVT prophylaxis Okay for discharge home Attestations 2 Medical Necessity Statement*: As per primary Coding Level of Care Code Acute Nurse Healthcare Manager for Garett Leija Diagnoses Lumbar stenosis with neurogenic claudication M48.062 History of pulmonary embolism Z86.711 Bradycardia R00.1 Anemia D64.9 COPD (chronic obstructive pulmonary disease) J44.9 Atrial fibrillation I48.91
[2021-10-01 08:00] VITALS: BP 125/74; PULSE 89; RESP 17; TEMP 36.9; O2SAT 94
[2021-10-01] MEDS: metoprolol tartrate 25 mg Tablet PO (08:16)
[2021-10-01] MEDS: docusate sodium 100 mg Capsule PO (08:16)
[2021-10-01] MEDS: venlafaxine ER (24HR) 150 mg Capsule PO (08:16)
--- NOTE | 2021-10-01 10:36 | PC.CHAP ---
Pastoral Care Encounter/Spiritual Assessment Type of Contact [] Declined marketing production coordinator visit [] Patient/Family/Request visit [] Outpatient visit [] Follow-up visit [] Physician referral [] Code/Alert [x] Routine visit [] Staff referral [] Actively dying [] Patient sleeping [] Family support [] [] Out of room [] Palliative care [] [] Receiving care in room [] Pre-surgical visit [] Trauma [] Long length of stay [] ICU visit [] Other: Relational/Emotional Strength [x] Patient feels connected with others/family/visitors/staff [] Distress [] Loneliness/isolation [] Abandonment Spirituality of Patient [x] Person of Sarah [x] Attends Oriental Orthodox of their Sarah [x] Believes in Prayer [] Reads Bible or Lutheran materials [] There are Spiritual issues to be addressed Uptwist Spinner Interventions [x] Prayer [x] Active listening [x] Non-anxious presence [x] Spiritual/emotional support [] Crisis/trauma care [] Spiritual counseling [] Bereavement support [] Provided bereavement packet [] Provided Bible/devotional materials [] Provided toy/stuffed animal, coloring book to patient or family member [] Provided Communion [] Anointing/[place] [] Salvation [x] Completed spiritual assessment [] Other: Impact on Illness or Injury [] Angry [] Fearful [] Anxious [] Often cries [] Exhaustion [] Unable to work [] Unable to attend yarsani [] Unable to walk/stand [] Unable to read [] Unable to drive [] Unable to eat/drink [] Unable to sleep [] Unable to be with family [] Patient intubated [] Other: Summary Time spent with patient 10 min
== END 2021-10-01 10:37 | disposition home health service (06) | DRG 454 ==
LOC: MEDSURG 11:51
PROVIDERS: Anesthesiology; Internal Medicine; Admitting Provider Orthopaedic Surgery; PCP Nurse Practitioner Family; Visit Provider Orthopaedic Surgery
PROC: 0RG6071 Fusion of Thoracic Vertebral Joint with Autologous Tissue Substitute, Posterior Approach, Posterior Column, Open Approach (ICD-10-PCS; CPT 22612; principal; 2021-09-29 07:00)
PROC: 0RG6071 Fusion of Thoracic Vertebral Joint with Autologous Tissue Substitute, Posterior Approach, Posterior Column, Open Approach (ICD-10-PCS; CPT 63005; 2021-09-29 07:00)
DX: M48.062 Spinal stenosis, lumbar region with neurogenic claudication (principal); D62 Acute posthemorrhagic anemia; J96.10 Chronic respiratory failure, unspecified whether with hypoxia or hypercapnia; G89.29 Other chronic pain; F12.90 Cannabis use, unspecified, uncomplicated; Z88.1 Allergy status to other antibiotic agents; Z88.5 Allergy status to narcotic agent; Z88.0 Allergy status to penicillin; Z88.7 Allergy status to serum and vaccine; Z79.891 Long term (current) use of opiate analgesic; J44.9 Chronic obstructive pulmonary disease, unspecified; F41.8 Other specified anxiety disorders; E78.5 Hyperlipidemia, unspecified; I10 Essential (primary) hypertension; G25.81 Restless legs syndrome; R00.1 Bradycardia, unspecified; I25.10 Atherosclerotic heart disease of native coronary artery without angina pectoris; Z95.5 Presence of coronary angioplasty implant and graft; Z86.718 Personal history of other venous thrombosis and embolism; Z86.711 Personal history of pulmonary embolism; Z85.89 Personal history of malignant neoplasm of other organs and systems; G47.33 Obstructive sleep apnea (adult) (pediatric); Z95.828 Presence of other vascular implants and grafts; Z87.891 Personal history of nicotine dependence; Z79.01 Long term (current) use of anticoagulants; I48.91 Unspecified atrial fibrillation
CPT/HCPCS: 36415; 51702; 72100; 76000; 80048; 80051; 80053; 82330; 82805; 85014; 85018; 85025; 93005; 97110; 97116; 97161; 97530; C1713; J0171; J0461; J1100; J1170; J1644; J1885; J2370; J2405; J2704; J3010; J3370; J3490; J7030; P9041

== ENCOUNTER 2021-10-02 10:01 | Inpatient (IN) | payer MEDICARE, SELFPAY ==
[2021-10-02] VITALS (12 sets, daily range): BP systolic 122–164; BP diastolic 51–82; PULSE 71–140; RESP 16–22; TEMP 36.8–36.9; O2SAT 90–100; BMI 30.9
--- NOTE | 2021-10-02 10:08 | XRR_ITS ---
PROCEDURE INFORMATION: Exam: XR Chest Exam date and time: 10/02/2021 10:08 AM Age: 86 years old Clinical indication: Dyspnea; Additional info: Shortness of breath TECHNIQUE: Imaging protocol: XR of the chest. Views: 1 view. COMPARISON: CR Chest 1 [place] [id number] 01/25/2019 11:14 PM FINDINGS: Lungs: There is mild subsegmental atelectasis in the lung bases. Pleural spaces: Unremarkable. No pleural effusion. No pneumothorax. Heart/Mediastinum: The cardiac silhouette is enlarged but unchanged. Bones/joints: Pedicle screws and rods are seen in the thoracolumbar spine from old spinal fusion. XR/XR chest 1V portable [id number] IMPRESSION: 1. Stable cardiomegaly. 2. Mild basilar atelectasis. Radiation Dose CTDIVOL = (mGy): DLP = (mGy-cm)
--- NOTE | 2021-10-02 10:10 | ECG_ITS ---
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1935 Requested By: Evelyn Bradshaw Order Number: [id number] Reading MD: YOBANY QUEEN Measurements Intervals [employer] Rate: 133 P: IN: QRS: 31 QRSD: 84 T: 101 QT: 282 QTc: 420 Interpretive Statements ATRIAL FIBRILLATION WITH RAPID VENTRICULAR RESPONSE NONSPECIFIC ST & T-WAVE ABNORMALITY Compared to ECG 09/29/2021 06:30:30 Aberrant conduction of supraventricular beat(s) no longer present Ventricular premature complex(es) no longer present T-wave abnormality still present Electronically Signed On 10-03-2021 14:30:47 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
--- NOTE | 2021-10-02 10:18 | W.ED.SOB ---
HPI - SOB/Dyspnea General: Chief Complaint: Shortness of Breath/Dyspnea Stated Complaint: SOB, BACK PAIN Time Seen by Provider: 10/02/21 10:08 Source: patient, EMS and old records reviewed Mode of arrival: EMS History of Present Illness: HPI Narrative: 86-year-old female brought in by EMS with complaints of shortness of breath chest, and back pain since last night. She was just discharged yesterday afternoon from this hospital after undergoing lumbar fusion on 09/29/2021. She does also have a history of atrial fibrillation: When EMS arrived, she did have RVR in the 120s to 130s, just restarted her Xarelto this morning, metoprolol was restarted prior to discharge. Normally wears home O2 2 L, history of COPD Denies fever, swelling, nausea, vomiting, Took a dose of [employer] this morning around 6 AM, still complaining of significant pain, She has been on oxycodone in the past, but denies taking it on a regular basis leading up to surgery. Instead she has been trying to get relief with medical marijuana in the form of capsules, tincture, topical cream. MD elicited complaint: shortness of breath, cough, pain with inspiration and chest pain Pertinent past history: COPD Onset (ago): hour(s) Associated symptoms: Reports chest congestion, chest pain, diaphoresis and palpitations; Deny nausea or vomiting Review of Systems General: Reports: 10 or more systems reviewed and unremarkable except in HPI and below Const: Reports: chills, body aches, fatigue and diaphoresis ENMT: Denies: throat pain Card: Reports: chest pain and palpitations Resp: Reports: dyspnea, pain on inspiration and chest congestion GI: Denies: nausea or vomiting : Denies: difficulty voiding or dysuria Musc: Reports: back pain Skin/Breast: Reports: rash, erythema and skin tenderness Neuro: Denies: numbness in extremities Les/Lymph: Reports: easy bruising and easy bleeding PFSH ED PFSH: Medical History Atrial fibrillation Chronic back pain COPD (chronic obstructive pulmonary disease) Uses trilogy at night with 2 L. Typically not on oxygen during day. Coronary artery disease Depression Depression with anxiety DVT (deep venous thrombosis) History of cancer of vulva Hx of blood clots Hyperlipidemia Hypertension Lumbar radiculopathy Obstructive sleep apnea Pulmonary embolism Restless leg syndrome Surgical History H/O: hysterectomy History of back surgery History of coronary artery stent placement History of knee replacement History of tonsillectomy Presence of vena cava filter Family History Other Cancer Chronic back pain Social History Smoking and tobacco status: former smoker Alcohol intake: current Alcohol intake frequency: few times a month History of recent travel: No Physical Exam Const: COMMON NORMALS: patient oriented x3 GENERAL APPEARANCE: in distress, anxious and ill appearing NUTRITIONAL APPEARANCE: overweight HENMT: COMMON NORMALS: normocephalic and atraumatic HEAD & SCALP: normocephalic and atraumatic Eye: COMMON NORMALS: Equal, round and reactive pupils present, EOMs intact bilaterally and conjunctivae normal CONJUNCTIVA: Yes conjunctivae normal PUPIL: Yes Equal, round and reactive pupils present Neck/C-Spine: COMMON NORMALS: full ROM, no lymphadenopathy and no JVD Lymph: LYMPHATIC: no lymphadenopathy noted Chest: COMMONS NORMALS: normal inspection of the chest and normal palpation of entire chest wall Resp: EFFORT & INSPECTION: Yes tachypneic, No pursed lip breathing, Yes labored and No Actively coughing Cardio: COMMON NORMALS: no JVD RATE: tachycardic RHYTHM: abnormal rhythm irregularly irregular GI: COMMON NORMALS: Normal to inspection, nondistended, normoactive bowel sounds present, Soft to palpation and non-tender PALPATION: Yes Soft to palpation Extremity: COMMON NORMALS: no clubbing, cyanosis or edema, no calf tenderness and no pedal edema Neuro: COMMON NORMALS: patient oriented x3 Psych: COMMON NORMALS: Normal thought process present and speech normal ACTIVITY/MOTOR BEHAVIOR: Yes restless SPEECH: Yes normal speech MOOD & AFFECT: Yes anxious THOUGHT PROCESS: Normal thought process present MEMORY/COGNITION: Yes memory grossly intact and Yes cognition grossly intact Skin: COMMON NORMALS: no jaundice and no mottling Course Vital Signs: Vital signs: Vital Signs Temperature 98.2 F 10/02/21 10:02 Pulse Rate 107 H 10/02/21 14:14 Respiratory Rate 18 10/02/21 14:17 Blood Pressure 139/73 10/02/21 14:14 Pulse Oximetry 90 10/02/21 14:14 MDM - SOB/Dyspnea MDM Narrative: Medical decision making narrative: 86-year-old female with history of COPD, A. fib, CAD, DVT/PE (IVC filter) underwent revision of lumbar fusion on 09/29/2021, was discharged home yesterday; returns now to the ER with complaints of chest and back pain, shortness of breath, palpitations. Found to be in A. fib with RVR initially with rates 130-140, hypertensive Chest x-ray shows cardiomegaly with bilateral atelectasis versus effusions. She is on anticoagulation, however it was restarted this morning, so CTA was done to rule out acute PE that could have developed during the immediate postop period. There was no PE, but there was noted to be bilateral small pleural effusions as well as a suspicious appearing 1 cm spiculated nodule in the left lower lobe that will need further work-up. She did have significant drop in her hemoglobin after surgery, but it has remained stable since discharge yesterday at 8.3. No signs of infectious consolidations in her lungs, UA appears contaminated, She is not having any increased oxygen requirement compared to baseline. Her heart rate and blood pressure improved after administration of low-dose IV metoprolol, followed by a p.o. dose of 25 mg. Also administered 20 mg IV Lasix for suspected mild fluid overload Her initial troponin was 50, 2-hour repeat had gone down slightly to 48. No baseline available BNP 3440, no prior available. Discussed the case with Dr. Valdovinos, hospitalist on-call, I think this patient would benefit from admission for further cardiac work-up and pain control. Dr Campbell Accepts the admission DDx; acute PE, CHF, ischemic cardiomyopathy, STEMI, ACS, pneumonia, Medical Records: Attestation: I reviewed the patient's medical records. Lab Data: Attestation: I reviewed the patient's lab results. Labs: Lab Results 10/02/21 10/02/21 10/02/21 10:38 10:38 10:38 WBC 12.7 10^3/uL H 10 ^3/uL (4.0-10.0) RBC 2.55 10^6/uL L 10 ^6/uL (4.1-5.3) Hgb 8.2 g/dL L g/dL (11.5-15.3) Hct 26.9 % L % (37.0-47.0) MCV 105.5 fl H fl (81-99) MCH 32.2 pg pg (28.0-34.0) MCHC 30.5 g/dL g/dL (30.0-36.0) RDW 12.9 % % (12.1-15.1) Plt Count 166 10^3/cmm 10^3 /cmm (130-400) MPV 10.4 fL fL (7.4-10.4) Neut % (Auto) 82.1 % % Lymph % (Auto) 9.4 % % Petroleum % (Auto) 7.6 % % Eos % (Auto) 0.2 % % Baso % (Auto) 0.2 % % Neut # (Auto) 10.43 10^3/uL H 1 0^3/uL (1.8-7.7) Lymph # (Auto) 1.2 10^3/uL 10^3/ uL (0.8-4.8) Petroleum # (Auto) 1.0 10^3/uL H 10^ 3/uL (0.2-0.9) Eos # (Auto) 0.0 10^3/uL 10^3/ uL (0.0-0.8) Baso # (Auto) 0.0 10^3/uL 10^3/ uL (0.0-0.1) Nucleated RBC % (a uto) 0 % % Nucleated RBCs # 0.0 /100WBC /100W BC Sodium 140 mmol/L mmol/L (136-145) Potassium 4.4 mmol/L mmol/L (3.5-5.1) Chloride 103 mmol/L mmol/L (98-107) Carbon Dioxide 28 mmol/L mmol/L (22-29) Anion Gap 13.4 (5-19) BUN 25 mg/dL H mg/dL (8-23) Creatinine 0.7 mg/dL mg/dL (0.5-0.9) GFR Calculation Not Reportable Glucose 133 mg/dL H mg/dL (65-115) Calculated Osmolal ity 296 mOsm/kg H mOs m/kg (285-295) Calcium 8.5 mg/dL mg/dL (8.5-10.5) Magnesium 1.9 mg/dL mg/dL (1.7-2.3) Total Bilirubin 0.5 mg/dL mg/dL (0.15-1.2) AST 29 U/L U/L (0-32) ALT 18 U/L U/L (0-33) Alkaline Phosphata se 139 IU/L H IU/L (35-105) Troponin T Baselin e 52 ng/L H ng/L (0-10) Troponin T 120 Min resighini Delta Troponin T NT-Pro-B Natriuret Pep 3440 pg/mL H pg/m L (0-450) Total Protein 4.9 g/dL L g/dL (6.6-8.7) Albumin 3.1 g/dL L g/dL (3.5-5.2) Globulin 1.8 g/dL g/dL (1.3-4.6) Urine Color Urine Appearance Urine pH Ur Specific Gravit y Urine Protein Urine Glucose (UA) Urine Ketones Urine Blood Urine Nitrate Urine Bilirubin Urine Urobilinogen Ur Leukocyte Desiree ase Urine RBC Urine WBC Ur Squamous Epith Cells Amorphous Sediment Urine Bacteria 10/02/21 10/02/21 11:12 12:40 WBC RBC Hgb Hct MCV MCH MCHC RDW Plt Count MPV Neut % (Auto) Lymph % (Auto) Petroleum % (Auto) Eos % (Auto) Baso % (Auto) Neut # (Auto) Lymph # (Auto) Petroleum # (Auto) Eos # (Auto) Baso # (Auto) Nucleated RBC % (a uto) Nucleated RBCs # Sodium Potassium Chloride Carbon Dioxide Anion Gap BUN Creatinine GFR Calculation Glucose Calculated Osmolal ity Calcium Magnesium Total Bilirubin AST ALT Alkaline Phosphata se Troponin T Baselin e Troponin T 120 Min resighini 48.56 ng/L H ng/L (0-10) Delta Troponin T -3.44 ABS# L ABS# (0-10) NT-Pro-B Natriuret Pep Total Protein Albumin Globulin Urine Color Yellow (Yellow) Urine Appearance Clear (CLEAR) Urine pH 5 (5-7) Ur Specific Gravit y 1.015 (1.005-1.030) Urine Protein Neg (Negative) Urine Glucose (UA) Norm (Normal) Urine Ketones Negative (Negative) Urine Blood Neg (Negative) Urine Nitrate Negative (Negative) Urine Bilirubin Neg (Negative) Urine Urobilinogen Norm mg/dL mg/dL (Negative) Ur Leukocyte Desiree ase Trace H (Negative) Urine RBC None /hpf /hpf (0-2) Urine WBC 10-15 /hpf H /hpf (0-5) Ur Squamous Epith Cells 15-25 /hpf H /hpf (0-5) Amorphous Sediment Not Reportable Urine Bacteria Trace /hpf /hpf (NONE) EKG Data^: EKG 1: Attestation: I personally reviewed and interpreted this EKG as follows: EKG Interpretation Date: 10/02/21 EKG interpretation time: 10:29 Ischemic changes: non-specific ST-T wave changes Interpretation: A. fib, RVR, rate 133, QRS 84, QTc 360, no acute ST elevation, normal axis. EKG 2: Attestation: I personally reviewed and interpreted this EKG as follows: EKG Interpretation Date: 10/02/21 EKG interpretation time: 12:50 Prior EKG tracings: available for review Ischemic changes: non-specific ST-T wave changes Interpretation: A. fib with RVR, rate 130, QRS 89, QTc 352, no acute ST elevation. Normal axis. No acute changes from prior. Discharge Plan Discharge Patient Disposition: Admitted As Inpatient Clinical Impression: Post-op pain, Dyspnea or other respiratory complaints, Atrial fibrillation with rapid ventricular response Congestive heart failure Qualifiers: Heart failure type: unspecified Heart failure chronicity: acute on chronic Qualified Code(s): I50.9 - Heart failure, unspecified Chest pain Qualifiers: Chest pain type: unspecified Qualified Code(s): R07.9 - Chest pain, unspecified Condition: Stable Coding Level of Care Code ED Set Up Technician for g Fwd Exam Comprehensive
[2021-10-02 10:56] LABS: Basophils % 0.2 %; Eosinophils % 0.2 %; Hematocrit 26.9 % (37.0-47.0); Hemoglobin 8.2 g/dL (11.5-15.3); Lymphocytes # 1.2 10^3/uL (0.8-4.8); Lymphocytes % 9.4 %; Mean Corpuscular HGB Conc 30.5 g/dL (30.0-36.0); Mean Corpuscular Hemoglobin 32.2 pg (28.0-34.0); Mean Corpuscular Volume 105.5 fl (81-99); Mean Platelet Volume 10.4 fL (7.4-10.4); Monocytes % 7.6 %; Neutrophils # 10.43 10^3/uL (1.8-7.7); Neutrophils % 82.1 %; Nucleated Red Blood Cells % 0 %; Platelet Count 166 10^3/cmm (130-400); Red Blood Count 2.55 10^6/uL (4.1-5.3); Red Cell Distribution Width 12.9 % (12.1-15.1); White Blood Count 12.7 10^3/uL (4.0-10.0)
[2021-10-02 11:20] LABS: Troponin(5th) Baseline 52 ng/L (0-10)
[2021-10-02 11:30] LABS: Alanine Aminotransferase 18 U/L (0-33); Albumin Level 3.1 g/dL (3.5-5.2); Alkaline Phosphatase 139 IU/L (35-105); Aspartate Amino Transferase 29 U/L (0-32); Blood Urea Nitrogen 25 mg/dL (8-23); Calcium 8.5 mg/dL (8.5-10.5); Carbon Dioxide 28 mmol/L (22-29); Chloride 103 mmol/L (98-107); Globulin 1.8 g/dL (1.3-4.6); Glucose 133 mg/dL (65-115); Magnesium 1.9 mg/dL (1.7-2.3); NT Pro B Type Natriuretic Pept 3440 pg/mL (0-450); Osmolality Calculated 296 mOsm/kg (285-295); Sodium 140 mmol/L (136-145); Total Bilirubin 0.5 mg/dL (0.15-1.2); Total Protein 4.9 g/dL (6.6-8.7)
[2021-10-02 11:33] LABS: Anion Gap 13.4 (5-19); Potassium 4.4 mmol/L (3.5-5.1)
[2021-10-02 11:34] LABS: Add Urine Microscopic? YES; Bilirubin Urine Neg (Negative); Blood Urine Neg (Negative); Glucose Urine UA Norm (Normal); Ketones Urine Negative (Negative); Leukocyte Esterase Urine Trace (Negative); Nitrate Urine Negative (Negative); Protein Urine Neg (Negative); Specific Gravity, Urine 1.015 (1.005-1.030); Urine Appearance Clear (CLEAR); Urine Color Yellow (Yellow); Urobilinogen Urine Norm (Negative); pH Urine 5 (5-7)
[2021-10-02 11:36] LABS: Add Urine Culture? No; Bacteria Urine TRACE /hpf; Squamous Epithelial Cell Urine 15-25 /hpf (0-5)
--- NOTE | 2021-10-02 11:43 | CTR_ITS ---
PROCEDURE INFORMATION: Exam: CTA Chest With Contrast Exam date and time: 10/02/2021 11:43 AM Age: 86 years old Clinical indication: Dyspnea; Additional info: Chest pain, dyspnea, post op TECHNIQUE: Imaging protocol: Computed tomographic angiography of the chest with contrast. 3D rendering (Not supervised by radiologist): MIP and/or 3D reconstructed images were created by the technologist. Radiation optimization: All CT scans at this facility use at least one of these dose optimization techniques: automated exposure control; mA and/or kV adjustment per patient size (includes targeted exams where dose is matched to clinical indication); or iterative reconstruction. Contrast material: OMNI 350; Contrast volume: 95 ml; Contrast route: INTRAVENOUS (IV); COMPARISON: CT chest con [id number] 01/31/2016 12:39 PM RADIATION DOSE METRICS: Total DLP (mGy-cm): 1066 FINDINGS: Pulmonary arteries: Normal. No pulmonary emboli. Aorta: There is atherosclerotic calcification of the aorta. There is no evidence of aneurysm or dissection. Lungs: There is a spiculated 1 cm nodule in the left lower lobe. Pleural spaces: There are bilateral small pleural effusions larger on the right side. Heart: The heart is mildly enlarged with left atrial dilatation. There is coronary artery calcification. Lymph nodes: There is small benign calcified pulmonary hilar lymph nodes. No enlarged lymph nodes. Spleen: There are multiple small benign calcified granulomas in the spleen. Adrenal glands: There is a stable 2.4 cm nodule in the left adrenal gland which has not changed since the scan from 01/31/2016. Bones/joints: Pedicle screws and rods are present in lower thoracic spinal fusion surgery. Degenerative changes are present in the spine with joint space narrowing and small osteophytes. Soft tissues: Unremarkable. CT/CT angio chest PE protcl [id number] IMPRESSION: 1. No evidence of pulmonary embolus or aortic aneurysm/dissection. 2. There is a 1 cm spiculated nodule in the left lower lobe. Highly suspicious nodule(s). Consider non-emergent PET/CT, or tissue sampling.(Reference: Loy) 3. Small bilateral pleural effusions. REFERENCES: Loy Teixeira, et al. Guidelines for Management of Incidental Pulmonary Nodules Detected on CT Images: From the Fleischner Society 2017. Radiology. 2017;284(1):228-243. Radiation Dose CTDIVOL = (mGy): DLP = 1066 (mGy-cm)
--- NOTE | 2021-10-02 12:10 | ECG_ITS ---
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1935 Requested By: Evelyn Bradshaw Order Number: [id number] Reading MD: YOBANY QUEEN Measurements Intervals [place] Rate: 130 P: MD: QRS: 52 QRSD: 89 T: 102 QT: 275 QTc: 405 Interpretive Statements ATRIAL FIBRILLATION WITH RAPID VENTRICULAR RESPONSE MODERATE VOLTAGE CRITERIA FOR LVH, CONSIDER NORMAL VARIANT [MEETS CRITERIA IN ONE OF: R(aVL), S(V1), R(V5), R(V5/V6)+S(V1)] NONSPECIFIC ST & T-WAVE ABNORMALITY ABNORMAL RHYTHM ECG Compared to ECG 10/02/2021 10:29:54 No significant changes Electronically Signed On 10-03-2021 14:36:07 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
[2021-10-02] MEDS: iohexol 350 mg/mL 100 mL Btl IV (12:41)
[2021-10-02 13:16] LABS: Troponin 5 2HR 48.56 ng/L (0-10)
[2021-10-02 13:18] LABS: Troponin 5 2HR Delta -3.44 ABS# (0-10)
[2021-10-02] MEDS: fentaNYL 50 mcg/mL INJ 2mL 75 MCG IVP (13:27)
[2021-10-02] MEDS: metoprolol tartrate 1 mg/1 mL SDV 5 mL 2.5 MG IVP (13:28)
[2021-10-02] MEDS: FUROsemide 10 mg/mL SDV 2mL 20 MG IVP (13:29)
[2021-10-02] MEDS: oxyCODONE-APAP 5-325 mg Tablet 1 TAB PO (14:17)
--- NOTE | 2021-10-02 15:12 | P.HP_ITS ---
Providers/Chief Complaint Primary Care Provider: June Merchant Chief Complaint: SOB, BACK PAIN History of Present Illness Maria Teresa Woodurff is a 86 year old female with past medical history of atrial fibrillation, chronic back pain, COPD on 2 L oxygen at home, coronary artery disease, congestive heart failure, depression, anxiety, cancer vulva, blood clots, hyperlipidemia, hypertension, positive sleep apnea, pulmonary embolism, restless leg syndrome presented to the hospital today via EMS with complaint of shortness of breath since last night. She was discharged on 10/01 from the hospital after undergoing lumbar fusion on 09/29/2021. When EMS arrived patient was found to be in A. fib with RVR rates 120s to 130s. She restarted her Xarelto this morning. Metoprolol was restarted prior to discharge. She states that she took [place] this morning around 6 AM and has been on oxycodone in the past but no longer taking. He has been trying to get relief from medical marijuana in form of capsules including topical cream. Shortness of breath is her only complaint. When she takes a deep breath she sometimes has pain in her chest. She also reports some palpitations. Denies abdominal pain, nausea, vomiting, diarrhea, constipation, headache, fever at home. States she is supposed to be on lasix but does not take it because it makes her urinate. She is also requesting not to put a small and promises to urinate in a hat. She has been feeling edematous and now got short of breath therefore came to ER. Denies cough, fever, sputum production. 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 Would like a new explosives operator. Does not recal having an echo. ED course: On arrival to ER pulse 124, temperature 98.2, respiratory rate 18, blood pressure 127/82, pulse oximetry 98%. Patient was given Lasix 20 IV x1. BNP 3400. Afebrile, hemoglobin 8.2, WBC 12.7, urine shows trace leukocyte esterase, urine WBC 10-15. Review of Systems General: Reports: 10 or more systems reviewed and unremarkable except in HPI and below Medications/Allergies Home Medications Medication Instructions Recorded Confirmed Last Taken Type metoprolol tartrate 25 mg tablet 12.5 mg PO BID 01/14/21 10/02/21 10/02/21 History potassium chloride 10 mEq 10 meq PO BID 01/14/21 10/02/21 10/02/21 History capsule,extended release rivaroxaban 20 mg tablet 20 mg PO DAILY #90 tab 01/14/21 10/02/21 10/02/21 Rx ropinirole 4 mg tablet 4 mg PO BEDTIME tab 01/14/21 10/02/21 10/01/21 History venlafaxine 150 mg tablet,extended 150 mg PO DAILY 01/14/21 10/02/21 10/02/21 History release 24 hr ergocalciferol (vitamin D2) 1,250 1,250 mcg PO Q7D 05/21/21 10/02/21 09/28/21 History mcg (50,000 unit) capsule hydrocodone 5 mg-acetaminophen 325 1 tab PO Q6H PRN 05/21/21 10/02/21 09/25/21 History mg tablet clobetasol 0.05 % topical gel 1 applic TOPICAL DAILY 09/09/21 10/02/21 09/27/21 History losartan 25 mg tablet 25 mg PO DAILY 09/09/21 10/02/21 10/02/21 History meloxicam [Mobic] 1 mg PO DAILY 09/25/21 10/02/21 10/02/21 History hydrocodone-acetaminophen 1 - 2 tab PO .Q4-6H #40 tab 10/01/21 10/02/21 Unknown Rx pregabalin [Lyrica] 100 mg PO BEDTIME 10/02/21 10/02/21 10/01/21 History Allergies Allergy/AdvReac Type Severity Reaction Status Date / Time amoxicillin Allergy rash Verified 09/29/21 05:59 morphine Allergy nausea, Verified 09/29/21 05:59 hyper Penicillins Allergy rash Verified 09/29/21 05:59 Tetanus Vaccines and Toxoid Allergy unk Verified 09/29/21 05:59 PFSH Acute PFSH: Medical History Atrial fibrillation Chronic back pain COPD (chronic obstructive pulmonary disease) Uses trilogy at night with 2 L. Typically not on oxygen during day. Coronary artery disease Depression Depression with anxiety DVT (deep venous thrombosis) History of cancer of vulva Hx of blood clots Hyperlipidemia Hypertension Lumbar radiculopathy Obstructive sleep apnea Pulmonary embolism Restless leg syndrome Surgical History H/O: hysterectomy History of back surgery History of coronary artery stent placement History of knee replacement History of tonsillectomy Presence of vena cava filter Family History Other Cancer Chronic back pain Social History Smoking and tobacco status: former smoker Alcohol intake: current Alcohol intake frequency: few times a month History of recent travel: No Vitals/I&O/Wt Last Vital Signs Temp 98.2 F 10/02/21 10:02 Pulse 107 H 10/02/21 14:14 Resp 18 10/02/21 14:17 BP 139/73 10/02/21 14:14 Pulse Ox 90 10/02/21 14:14 Weight last 48 hrs Weight 81.647 kg Physical Exam Narrative: EXAM NARRATIVE: General: Alert oriented x3, patient seen sitting up in bed. HEENT: Normocephalic, atraumatic, EOMI, breathing 2L NC Cardio: Irregularly irregular, normal S1-S2, no murmurs rubs gallops, Respiratory: Mild bibaslar crackles present bilaterally, no wheezes, no ronchi GI: Abdomen soft, nontender, nondistended, bowel sounds + Behavior: Appropriate and cooperative Extremities: Pulses 2+, 1-2+ pitting edema b/l LE, no cyanosis Data : 10/02/21 10:38 10/02/21 10:38 A&P Assessment and plan (1) Congestive heart failure: Status: Acute Qualifiers: Heart failure chronicity: acute on chronic Heart failure type: unspecified Qualified Code(s): I50.9 - Heart failure, unspecified (2) Post-op pain: Status: Acute (3) Atrial fibrillation: Status: Acute (4) COPD (chronic obstructive pulmonary disease): Status: Acute (5) Fusion of spine: Status: Acute (6) Hypertension: Status: Acute (7) Hyperlipidemia: Status: Acute (8) Obstructive sleep apnea: Status: Acute (9) Restless leg syndrome: Status: Acute Additional A&P Information #Atrial fibrillation with RVR #Hx of CAD s/p stent #Acute on Chronic Congestive heart failure, unsure what type, no echo on file, BNP elevated 3400 #B/L pleural effusion R > L #HTN #HLD - Has hx of CHF but unsure what type. - Got lasix 20 IV x1 in ER - BNP 3440 - Will check ECHO - Trop 52, 48.56, delta trop negative - Trop 6 hour pending - Will diurese with lasix 40 daily and transition to oral when able - Start metoprolol 25 BID (home dose 12.5 mg). - Cardiac telemetry -Strict I/O. She is refusing a small but promises to urinate in a container. #Chronic hypoxic respiratory failure, on 2L home O2 ATC #1 cm spiculated pulnonary nodule in left lower lobe - Has B/L pleural effusion - Continue oxygen therapy - COVID negative 5 days ago. - PE ruled out - Follow up outpatient regarding pulmonary nodule. 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 - States pain not very controlled - Allergic to morphine - She is not requesting pain medication at this time and states she will ask when she needs it. Does not want IV pain meds. #Hx of Pulm embolism #Hx of DVT #KIMBERLY - Continue xarelto 20 daily #Full Code Diet: Cardiac diet DVT PPX: On Xarelto Attestations Medical Necessity Statement*: Will cross 2 midnights. Time Spent in Patient Care: Greater than 35 minutes Coding Level of Care Code Acute Repatcher for Garett Fwd Diagnoses Congestive heart failure I50.9 Heart failure chronicity: acute on chronic Heart failure type: unspecified Post-op pain G89.18 Atrial fibrillation I48.91 COPD (chronic obstructive pulmonary disease) J44.9 Fusion of spine M43.20 Hypertension I10 Hyperlipidemia E78.5 Obstructive sleep apnea G47.33 Restless leg syndrome G25.81
[2021-10-02 15:48] LABS: ABG PCO2 44.9 mmHg (35-45); ABG PH Result 7.45 (7.35-7.45); Alveolar-Arterial Oxygen Gradi 1.3 mmHg (5-10); Arterial Blood Gas Hematocrit 26.2 % (37-47); Base Excess ABG 6.4 mmol/L (-2.0-2.0); Blood Gas Allen Test Pos; Blood Gas Sample Site Radial, right; Blood Gas Sample Type Arterial; Carboxyhemoglobin 1.3 %THgb (0.4-20.1); HCO3 ABG 31.1 mmol/L (22-26); HGB O2 Sat 95.5 % (95-100); Ionized Calcium Level - ABG 1.2 mmol/L (1.1-1.4); Methemoglobin 0.9 % (0.4-1.5); Oxygen Device NC; Oxygen Saturation ABG 97.7; PO2 ABG 85.2 mmHg (80.0-100.0); Potassium Level - ABG 3.8 mmol/L (3.5-5.0); Total Hemoglobin 8.6 g/dL (12-16)
[2021-10-02 15:49] LABS: Blood Gas LPM 1.5 %
[2021-10-02 15:49] LABS: Procalcitonin 0.21 ng/mL (0-0.5)
[2021-10-02 17:10] LABS: Troponin 5 6HR 55.04 ng/L (0-10); Troponin 5 6HR Delta 3.04 ng/L (0-12)
[2021-10-02] MEDS: oxyCODONE 5 mg IR Tab/Cap PO (19:36)
[2021-10-02] MEDS: metoprolol tartrate 25 mg Tablet PO (19:36)
[2021-10-02] MEDS: famotidine 20 mg Tablet PO (19:37)
[2021-10-02] MEDS: docusate sodium 100 mg Capsule 200 MG PO (19:37)
[2021-10-02] MEDS: FUROsemide 10 mg/mL SDV 4mL 40 MG IVP (19:37)
[2021-10-03] VITALS (20 sets, daily range): BP systolic 99–163; BP diastolic 43–82; PULSE 70–133; RESP 16–28; TEMP 36.6–37.1; O2SAT 91–99
[2021-10-03] MEDS: oxyCODONE 5 mg IR Tab/Cap PO ×3 (01:27→20:35)
[2021-10-03] MEDS: ipratropium-albuterol 3 mL Neb INHALATION ×4 (02:33→20:14)
[2021-10-03 05:06] LABS: Basophils % 0.3 %; Eosinophils # 0.1 10^3/uL (0.0-0.8); Eosinophils % 1.1 %; Hematocrit 25.7 % (37.0-47.0); Lymphocytes # 1.4 10^3/uL (0.8-4.8); Lymphocytes % 13.9 %; Mean Corpuscular HGB Conc 31.1 g/dL (30.0-36.0); Mean Corpuscular Hemoglobin 31.9 pg (28.0-34.0); Mean Corpuscular Volume 102.4 fl (81-99); Mean Platelet Volume 10.3 fL (7.4-10.4); Monocytes % 10.4 %; Neutrophils # 7.42 10^3/uL (1.8-7.7); Neutrophils % 73.9 %; Nucleated Red Blood Cells % 0 %; Platelet Count 178 10^3/cmm (130-400); Red Blood Count 2.51 10^6/uL (4.1-5.3); Red Cell Distribution Width 12.8 % (12.1-15.1)
[2021-10-03 05:37] LABS: Alanine Aminotransferase 15 U/L (0-33); Aspartate Amino Transferase 27 U/L (0-32); Chloride 100 mmol/L (98-107); Cholesterol 148 mg/dL (0-200); Glucose 90 mg/dL (65-115); Potassium 3.5 mmol/L (3.5-5.1); Sodium 143 mmol/L (136-145)
[2021-10-03 06:02] LABS: Anion Gap 16.5 (5-19); Blood Urea Nitrogen 18 mg/dL (8-23); Calcium 8.4 mg/dL (8.5-10.5); Carbon Dioxide 30 mmol/L (22-29); Chol HDL Ratio 3.44 mg/dL (0.0-4.40); HDL Cholesterol 43 mg/dL (60-100); LDL Cholesterol Calculated 88 mg/dL (50-129); LDL HDL Ratio 2.05 RATIO (0.00-3.22); Magnesium 1.5 mg/dL (1.7-2.3); Osmolality Calculated 297 mOsm/kg (285-295); Phosphorus 3.1 mg/dL (2.5-4.5); Thyroid Stimulating Hormone 0.81 uIU/mL (0.27-4.20); Total Bilirubin 0.5 mg/dL (0.15-1.2); Total Protein 5.2 g/dL (6.6-8.7); Triglycerides 83 mg/dL (0-150)
[2021-10-03 06:08] LABS: Albumin Level 2.8 g/dL (3.5-5.2); Alkaline Phosphatase 135 IU/L (35-105); Globulin 2.4 g/dL (1.3-4.6)
[2021-10-03] MEDS: pantoprazole DR 40 mg Tablet PO (08:23)
[2021-10-03] MEDS: famotidine 20 mg Tablet PO ×2 (08:23→17:41)
[2021-10-03] MEDS: rivaroxaban 10 mg Tablet 20 MG PO (08:23)
[2021-10-03] MEDS: docusate sodium 100 mg Capsule 200 MG PO ×2 (08:23→17:41)
[2021-10-03] MEDS: metoprolol tartrate 25 mg Tablet PO (08:24)
[2021-10-03] MEDS: FUROsemide 10 mg/mL SDV 4mL 40 MG IVP (08:53)
--- NOTE | 2021-10-03 10:29 | PC.NURSE ---
Transferred patient to [facility] Room [address]. Report given to Levi
--- NOTE | 2021-10-03 11:00 | PC.NURSE ---
Received pt to room 105 from med surg. Pt A&O x4, resp even and non-labored no distress noted. Pt c/o pain in legs and back. Pain medication administered. Will reassess pts pain. Pts call light in reach. No further needs voiced at the present time. Will cont to monitor.
--- NOTE | 2021-10-03 13:00 | PC.CHAP ---
Pastoral Care Encounter/Spiritual Assessment Type of Contact [] Declined brand director visit [] Patient/Family/Request visit [] Outpatient visit [] Follow-up visit [] Physician referral [] Code/Alert [xx] Routine visit [] Staff referral [] Actively dying [] Patient sleeping [] Family support [] [] Out of room [] Palliative care [] [] Receiving care in room [] Pre-surgical visit [] Trauma [] Long length of stay [] ICU visit [] Other: Relational/Emotional Strength [xx] Patient feels connected with others/family/visitors/staff [] Distress [] Loneliness/isolation [] Abandonment Spirituality of Patient [xx] Person of Sarah [] Attends Rastafarian of their Sarah [xx] Believes in Prayer [xx] Reads Bible or Zoroastrian materials [] There are Spiritual issues to be addressed Mailroom Clerk Interventions [xx] Prayer [xx] Active listening [xx] Non-anxious presence [] Spiritual/emotional support [] Crisis/trauma care [] Spiritual counseling [] Bereavement support [] Provided bereavement packet [xx] Provided Bible/devotional materials [] Provided toy/stuffed animal, coloring book to patient or family member [] Provided Communion [] Anointing/[place] [] Salvation [xx] Completed spiritual assessment [] Other: Impact on Illness or Injury [] Angry [] Fearful [] Anxious [xx] Often cries [] Exhaustion [] Unable to work [] Unable to attend bahai [] Unable to walk/stand [] Unable to read [] Unable to drive [] Unable to eat/drink [] Unable to sleep [] Unable to be with family [] Patient intubated [] Other: Summary Patient in Med/Surg floor when brand director visited with her. Patient started visit with smiles and sparkle in her eyes and then started crying. She said she was forgetting her blessings and feeling very negative at the moment and would I pray for her physically, mentally and spiritually. Mailroom Clerk complied then we talked until nurse came in to move her to CSU. Time spent with patient 15 minutes
--- NOTE | 2021-10-03 15:10 | XR_ITS ---
WS: [id number] PORTABLE CHEST HISTORY: follow up COMPARISON: 10/02/2021 Mild pulmonary hyperinflation. Slight improvement at the lung bases. Chronic emphysematous changes ar e noted bilaterally. No dense consolidation. No pleural effusion or pneumothorax. Cardiac size: Normal. Mediastinum/Aorta: Mild atherosclerosis aorta. Advanced degenerative changes at the glenohumeral joints. XR/XR chest 1V portable [id number] IMPRESSION: Chronic emphysematous changes. Slight improvement of aeration at the lung bases .
[2021-10-03] MEDS: ketorolac 30 mg/mL INJ 15 MG IVP (15:45)
[2021-10-03] MEDS: potassium chloride oral liq 20 mEq/15 mL UDC 40 MEQ PO (15:46)
[2021-10-03] MEDS: magnesium sulfate premix 4 GM/100 ML PREMIX IV (15:46)
--- NOTE | 2021-10-03 16:55 | PM.PN ---
Subjective Subjective: Interval history: Seen this morning. On telemetry patient has been in atrial fibrillation overnight with rapid ventricular response. When I saw her in the ER yesterday she was between 90-110 and home dose metoprolol was started. Also started Lasix 40 IV for her. She has had good output urine output overnight. This morning however she has been RVR 120s 130s and up to 140s. I was not informed of this however until I reviewed telemetry around 10 AM. Patient has been asymptomatic. She denies any complaints or feelings of palpitation. On the other hand she states that she feels better compared to admission. Patient will be transferred to cardiac stepdown unit for management of atrial fibrillation. I will start her on Cardizem drip. She does not offer any complaints and feels well. Vitals/I&O/Wt Last Vital Signs Temp 97.8 F 10/03/21 07:28 Pulse 105 H 10/03/21 14:44 Resp 16 10/03/21 14:44 BP 130/44 10/03/21 12:00 Pulse Ox 93 10/03/21 14:44 10/03/21 10/03/21 10/03/21 06:59 14:59 22:59 Intake Total 840 / 840 Output Total 600 / 1000 350 / 350 Balance -600 / -1000 490 / 490 Weight last 48 hrs Weight 86.545 kg Weight 81.647 kg Weight 81.647 kg Physical Exam Narrative: EXAM NARRATIVE: General: Alert oriented x3, patient seen sitting up in bed. HEENT: Normocephalic, atraumatic, EOMI, breathing 2L NC Cardio: Irregularly irregular, normal S1-S2, no murmurs rubs gallops, Respiratory: Mild bibaslar crackles present bilaterally but improved compared to admission. No wheezes, no ronchi GI: Abdomen soft, nontender, nondistended, bowel sounds + Behavior: Appropriate and cooperative Extremities: Pulses 2+, 1+ pitting edema b/l LE, no cyanosis Data : 10/03/21 04:21 10/03/21 04:21 Micro: Microbiology 10/02/21 19:13 Blood Culture - Preliminary Blood SPECIMEN COLLECTED 10/02/21 19:01 Blood Culture - Preliminary Blood SPECIMEN COLLECTED A&P Assessment and plan (1) Congestive heart failure: Status: Acute Qualifiers: Heart failure chronicity: acute on chronic Heart failure type: unspecified Qualified Code(s): I50.9 - Heart failure, unspecified (2) Post-op pain: Status: Acute (3) Atrial fibrillation: Status: Acute (4) COPD (chronic obstructive pulmonary disease): Status: Acute (5) Fusion of spine: Status: Acute (6) Hypertension: Status: Acute (7) Hyperlipidemia: Status: Acute (8) Obstructive sleep apnea: Status: Acute (9) Restless leg syndrome: Status: Acute Additional A&P Information #Atrial fibrillation with RVR #Hx of CAD s/p stent #Acute on Chronic Congestive heart failure, unsure what type, no echo on file, BNP elevated 3400 #B/L pleural effusion R > L #HTN #HLD - Has hx of CHF but unsure what type. - Got lasix 20 IV x1 in ER - BNP 3440 -Echo ordered but unable to be done so far due to high heart rate. - Trop 52, 48.56, delta trop negative -Delta troponin negative. ?Continue Lasix 40 IV daily ?Give Cardizem 10 IV push and started her on Cardizem drip. Transfer to cardiac stepdown unit. We will hold beta-marie for now Continue to cardiac telemetry. Patient incontinent of urine but is refusing a Long catheter. Nurses and myself have talked to her numerous times but she refuses. She has a history of vulvar cancer. - Cardiac telemetry -Strict I/O to the best of her ability. #Chronic hypoxic respiratory failure, on 2L home O2 ATC #1 cm spiculated pulnonary nodule in left lower lobe - Has B/L pleural effusion. Improved on x-ray today. - Continue oxygen therapy - COVID negative 5 days ago. - PE ruled out - Follow up outpatient regarding pulmonary nodule. 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 - States pain not very controlled - Allergic to morphine - Will order ketoralac 15 g q6H #Hx of Pulm embolism #Hx of DVT #KIMBERLY - Continue xarelto 20 daily #Full Code Diet: Cardiac diet DVT PPX: On Xarelto Attestations Medical Necessity Statement*: > 48 hours Coding Level of Care Code Acute Court Operations Clerk for Chg Fwd Diagnoses Congestive heart failure I50.9 Heart failure chronicity: acute on chronic Heart failure type: unspecified Post-op pain G89.18 Atrial fibrillation I48.91 COPD (chronic obstructive pulmonary disease) J44.9 Fusion of spine M43.20 Hypertension I10 Hyperlipidemia E78.5 Obstructive sleep apnea G47.33 Restless leg syndrome G25.81
--- NOTE | 2021-10-03 18:22 | ECG_ITS ---
[facility] Test Date: 2021-10-03 Pat Name: Maria Teresa Woodruff Department: Room: 105 Gender: Female First Line Supervisor: : 1935 Requested By: Maria Guadalupe Campbell Order Number: [id number] Reading MD: YOBANY QUEEN Measurements Intervals [place] Rate: 106 P: MO: QRS: 49 QRSD: 92 T: 123 QT: 312 QTc: 416 Interpretive Statements ATRIAL FIBRILLATION WITH RAPID VENTRICULAR RESPONSE NONSPECIFIC ST & T-WAVE ABNORMALITY Compared to ECG 10/02/2021 12:46:16 No significant changes Electronically Signed On 10-06-2021 12:56:29 LACQUER MAKER by YOBANY QUEEN [email or web address]
--- NOTE | 2021-10-03 19:22 | PC.NURSE ---
Received report from NADYA Sims. Patient resting in bed. Discussed plan for small catheter. Patient verbalized understanding and is agreeable to have one placed. Patient is up set due to missing rollater walker and back brace/girdle. Reassured patient that staff is diligently looking for these. Patient is s/p back surgery a few days. Denies chest pain or any pain at this time. Patient has Trilogy at bedside.
[2021-10-04] VITALS (55 sets, daily range): BP systolic 105–174; BP diastolic 53–116; PULSE 76–140; RESP 13–27; TEMP 37.7; O2SAT 80–99
[2021-10-04] MEDS: ipratropium-albuterol 3 mL Neb INHALATION ×3 (02:46→20:04)
--- NOTE | 2021-10-04 06:00 | USCV_ITS ---
Maria Teresa Woodruff Age: 86 Gender: F : 1935 Exam Date: 10/04/2021 14:20 Ordering Phys: Evelyn Bradshaw MD Technologist: Sophia Sinha Exam Location: [facility] [place] Indication: CHF BP: 124 / 59 HR: 97 Rhythm: Atrial fibrillation Technical Quality: Fair MEASUREMENTS (Male / Female) Normal Values 2D ECHO LV Diastolic Diameter PLAX 4.0 cm 4.2 - 5.9 / 3.9 - 5.3 cm LV Systolic Diameter PLAX 2.9 cm LV Chamber Size 2.9 cm IVS Diastolic Thickness 2.2 cm 0.6 - 1.0 / 0.6 - 0.9 cm IVS Systolic Thickness 2.1 cm LVPW Diastolic Thickness 1.4 cm 0.6 - 1.0 / 0.6 - 0.9 cm LVPW Systolic Thickness 1.5 cm RV Chamber Size 2.7 cm LVOT Diameter 1.9 cm LV Ejection Fraction 2D Teich 54.9 % LV Ejection Fraction MOD 2C 66.4 % LV Ejection Fraction 2C AL 66.7 % LA Diameter 4.0 cm LA Width 3.6 cm LA Height 5.9 cm RA Width 3.7 cm RA Height 6.2 cm Aorta at Sinotubular Diameter 2.1 cm M-MODE LV Diastolic Diameter MM 4.6 cm 4.2 - 5.9 / 3.9 - 5.3 cm LV Systolic Diameter MM 3.1 cm LV Ejection Fraction MM Teich 62.1 % IVS Diastolic Thickness MM 1.0 cm 0.6 - 1.0 / 0.6 - 0.9 cm IVS Systolic Thickness MM 1.6 cm LVPW Diastolic Thickness MM 1.2 cm 0.6 - 1.0 / 0.6 - 0.9 cm LVPW Systolic Thickness MM 1.6 cm RV Diastolic Diameter MM 2.1 cm Aortic Annulus Diameter 3.0 cm LA Ao Ratio MM 1.4 MV E Point Septal Separation 0.4 cm DOPPLER AV Peak Velocity 167.0 cm/s LVOT Peak Velocity 117.0 cm/s AV Area Cont Eq vti 2.0 cm squared AV Area Cont Eq pk 2.0 cm squared MV Area PHT 3.5 cm squared MV E' Velocity 117.7 cm/s TR Peak Velocity 305.2 cm/s TR Peak Gradient 37.3 mmHg TR Mean Velocity 281.6 cm/s TR Mean Gradient 34.5 mmHg TR Velocity Time Integral 100.9 cm TV Peak E Velocity 49.0 cm/s Right Atrial Pressure 3.0 mmHg Pulmonary Artery Systolic Pressu 40.3 mmHg PV Peak Velocity 102.0 cm/s RV Acceleration Time 0.1 s RV Ejection Time 0.3 s RV AcT/ET 0.3 FINDINGS Left Ventricle Normal left ventricular cavity size. Normal left ventricular systolic function. No regional wall motion abnormalities. Left ventricular ejection fraction is estimated at 60 %. In the presence of atrial fibrillation diastolic function cannot be assessed accurately. Right Ventricle The right ventricle is normal in size and function. Moderate pulmonary hypertension, RVSP 40.3 mmHg. Right Atrium The right atrium is normal in size. Left Atrium The left atrium is normal in size. Mitral Valve Moderately thickened mitral valve. Moderate mitral annular calcification. Moderate mitral valve regurgitation. Aortic Valve Severe aortic valve calcification. Mild aortic valve stenosis, mean gradient 6.2 mmHg, SHARIF 2 cm squared. Trace aortic valve regurgitation. Tricuspid Valve Structurally normal tricuspid valve without significant stenosis or regurgitation. Pulmonic Valve Structurally normal pulmonic valve without significant stenosis. There is no pulmonic regurgitation. Pericardium Normal pericardium without effusion. Aorta Normal ascending aorta dimension. CONCLUSIONS 1-Normal left ventricular cavity size. Normal left ventricular systolic function. No regional wall motion abnormalities. Left ventricular ejection fraction is estimated at 60 %. In the presence of atrial fibrillation diastolic function cannot be assessed accurately. 2-Moderately thickened mitral valve. Moderate mitral annular calcification. Moderate mitral valve regurgitation. 3-Severe aortic valve calcification. Mild aortic valve stenosis, mean gradient 6.2 mmHg, SHARIF 2 cm squared. Trace aortic valve regurgitation. 4-The right ventricle is normal in size and function. Moderate pulmonary hypertension, RVSP 40.3 mmHg. 5-There is no pericardial effusion. 6-Right atrial pressure is around 5 mm of mercury. 7-When compared to the prior echocardiogram dated February 01, 2016 there is mild aortic valve stenosis now Emma Blanco MD (Electronically Signed) Final Date: 05 October 2021 13:47 S
[2021-10-04 06:22] LABS: Basophils # 0.1 10^3/uL (0.0-0.1); Basophils % 0.5 %; Eosinophils # 0.2 10^3/uL (0.0-0.8); Eosinophils % 2.2 %; Hematocrit 31.9 % (37.0-47.0); Hemoglobin 9.2 g/dL (11.5-15.3); Lymphocytes # 1.5 10^3/uL (0.8-4.8); Lymphocytes % 16.3 %; Mean Corpuscular HGB Conc 28.8 g/dL (30.0-36.0); Mean Corpuscular Hemoglobin 32.5 pg (28.0-34.0); Mean Corpuscular Volume 112.7 fl (81-99); Monocytes # 1.5 10^3/uL (0.2-0.9); Monocytes % 15.7 %; Neutrophils # 5.98 10^3/uL (1.8-7.7); Neutrophils % 64.8 %; Nucleated Red Blood Cells % 0.2 %; Platelet Count 193 10^3/cmm (130-400); Red Blood Count 2.83 10^6/uL (4.1-5.3); Red Cell Distribution Width 12.7 % (12.1-15.1); White Blood Count 9.2 10^3/uL (4.0-10.0)
--- NOTE | 2021-10-04 06:22 | PC.NURSE ---
Shift Note Frequent safety and comfort rounds continue. Orders and/or nursing care completed as indicated. Patient monitored for response to intervention and treatment(s). Education provided includes small catheter. Patient verbalized understanding. Patient was fearful and concerned about pain with insertion. Patient was agreeable to allow nursing staff to place small. Patient tolerated procedure very well and was very pleased with results. Patient slept through the night using her cpap. No distress observed. Will continue to monitor.
[2021-10-04 06:39] LABS: Blood Urea Nitrogen 25 mg/dL (8-23); Calcium 8.3 mg/dL (8.5-10.5); Carbon Dioxide 25 mmol/L (22-29); Chloride 97 mmol/L (98-107); Glucose 129 mg/dL (65-115); Magnesium 2.4 mg/dL (1.7-2.3); Osmolality Calculated 290 mOsm/kg (285-295); Sodium 137 mmol/L (136-145)
[2021-10-04 07:41] LABS: Anion Gap 18.9 (5-19); Potassium 3.9 mmol/L (3.5-5.1)
[2021-10-04] MEDS: ketorolac 30 mg/mL INJ 15 MG IVP (08:01)
[2021-10-04] MEDS: FUROsemide 10 mg/mL SDV 4mL 40 MG IVP (08:01)
[2021-10-04] MEDS: rivaroxaban 10 mg Tablet 20 MG PO (08:05)
[2021-10-04] MEDS: docusate sodium 100 mg Capsule 200 MG PO ×2 (08:05→18:10)
[2021-10-04] MEDS: pantoprazole DR 40 mg Tablet PO (08:06)
--- NOTE | 2021-10-04 08:06 | XRR_ITS ---
PROCEDURE INFORMATION: Exam: XR Chest Exam date and time: 10/04/2021 8:06 AM Age: 86 years old Clinical indication: Shortness of breath; Additional info: Follow up pleural effusions TECHNIQUE: Imaging protocol: XR of the chest. Views: 1 view. COMPARISON: CR XR chest 1V portable [id number] 10/03/2021 3:30 PM FINDINGS: Lungs: Hyperinflated lungs. No consolidation. Pleural spaces: Similar bilateral costophrenic blunting most likely related to residual pleural effusions. No pneumothorax. Heart/Mediastinum: Stable cardiomegaly. Bones/joints: Posterior spinal fusion device noted in the lower thoracic/lumbar spine. XR/XR chest 1V portable [id number] IMPRESSION: Stable exam, no significant interval change. Radiation Dose CTDIVOL = (mGy): DLP = (mGy-cm)
[2021-10-04] MEDS: metoprolol tartrate 25 mg Tablet 12.5 MG PO ×2 (10:54→20:31)
--- NOTE | 2021-10-04 12:44 | P.PN_ITS ---
Subjective Subjective: Interval history: Seen this morning. Patient is on Cardizem 7.5/h at this time. Heart rate still 120s 130s. I have told nurse to titrate drip up. We will also restart her metoprolol home dose. Heart rate still elevated for echocardiogram. Patient agreed to have a Long catheter placed. She was incontinent did not have much of an accurate urine output but she has been urinating a lot. Will start to monitor output with Long. Lungs appearing much clear to auscultation today. Patient does not offer any complaints at this time. She says she slept well overnight. Did have a little bit of a headache this morning but is now doing okay. Vitals/I&O/Wt Last Vital Signs Temp 98.8 F 10/03/21 19:04 Pulse 111 H 10/04/21 09:04 Resp 18 10/04/21 09:04 BP 123/64 10/04/21 08:00 Pulse Ox 95 10/04/21 09:04 10/03/21 10/04/21 10/04/21 22:59 06:59 14:59 Intake Total 220 / 1060 240 / 240 Output Total 600 / 950 Balance 220 / 710 -600 / 110 240 / 240 Weight last 48 hrs Weight 88.405 kg Weight 86.545 kg Weight 81.647 kg Physical Exam Narrative: EXAM NARRATIVE: General: Alert oriented x3, patient seen sitting up in bed. HEENT: Normocephalic, atraumatic, EOMI, breathing 2L NC Cardio: Irregularly irregular, normal S1-S2, no murmurs rubs gallops, Respiratory: Very very mild bibaslar crackles present bilaterally but improved compared to admission. No wheezes, no ronchi GI: Abdomen soft, nontender, nondistended, bowel sounds + Behavior: Appropriate and cooperative Extremities: Pulses 2+, pitting edema still present b/l LE but much improved., no cyanosis Urinary Catheter Management^: Long: Cath Placed During This Visit: yes Reason for Continuing Indwelling Catheter: Accurate Measurement of Urinary Output in Critically Ill Patients Urinary Catheter Date of Insertion: 10/03/21 Urinary Catheter Time of Insertion: 20:11 Data : 10/04/21 05:26 10/04/21 05:26 Micro: Microbiology 10/02/21 19:13 Blood Culture - Preliminary Blood NEGATIVE TO DATE 10/02/21 19:01 Blood Culture - Preliminary Blood NEGATIVE TO DATE A&P Assessment and plan (1) Congestive heart failure: Status: Acute Qualifiers: Heart failure chronicity: acute on chronic Heart failure type: unspecified Qualified Code(s): I50.9 - Heart failure, unspecified (2) Post-op pain: Status: Acute (3) Atrial fibrillation: Status: Acute (4) COPD (chronic obstructive pulmonary disease): Status: Acute (5) Fusion of spine: Status: Acute (6) Hypertension: Status: Acute (7) Hyperlipidemia: Status: Acute (8) Obstructive sleep apnea: Status: Acute (9) Restless leg syndrome: Status: Acute Additional A&P Information #Atrial fibrillation with RVR #Hx of CAD s/p stent #Acute on Chronic Congestive heart failure, unsure what type, no echo on file, BNP elevated 3400 #B/L pleural effusion R > L #HTN #HLD - Has hx of CHF but unsure what type. - Got lasix 20 IV x1 in ER - BNP 3440 -Echo ordered but unable to be done so far due to high heart rate. - Trop 52, 48.56, delta trop negative -Delta troponin negative. ?Continue Lasix 40 IV daily ?Give Cardizem 10 IV push and started her on Cardizem drip. Transfer to cardiac stepdown unit. Will restart patient's beta-marie. Continue to cardiac telemetry. Patient agreed to have a Long catheter placed. We will continue with it and measure accurate output at this point. - Cardiac telemetry -Strict I/O to the best of her ability. #Chronic hypoxic respiratory failure, on 2L home O2 ATC #1 cm spiculated pulnonary nodule in left lower lobe - Has B/L pleural effusion. Repeat x-ray for follow-up pending. - Continue oxygen therapy - COVID negative 5 days ago. - PE ruled out - Follow up outpatient regarding pulmonary nodule. 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 - States pain not very controlled - Allergic to morphine - Will order ketoralac 15 g q6H #Hx of Pulm embolism #Hx of DVT #KIMBERLY - Continue xarelto 20 daily #Full Code Diet: Cardiac diet DVT PPX: On Xarelto Attestations Medical Necessity Statement*: Uncontrolled atrial fibrillation on Cardizem drip. Greater than 48-hour stay. Coding Level of Care Code Acute Metal Mine Inspector for Garett Leija Diagnoses Congestive heart failure I50.9 Heart failure chronicity: acute on chronic Heart failure type: unspecified Post-op pain G89.18 Atrial fibrillation I48.91 COPD (chronic obstructive pulmonary disease) J44.9 Fusion of spine M43.20 Hypertension I10 Hyperlipidemia E78.5 Obstructive sleep apnea G47.33 Restless leg syndrome G25.81
[2021-10-04] MEDS: oxyCODONE 5 mg IR Tab/Cap PO ×2 (16:14→23:04)
[2021-10-04] MEDS: lactulose oral liq 20 gm/30 mL UDC PO (18:22)
[2021-10-05] VITALS (22 sets, daily range): BP systolic 104–155; BP diastolic 50–72; PULSE 73–108; RESP 13–25; TEMP 36.7–36.9; O2SAT 79–97
[2021-10-05] MEDS: mineral oil ENEMA 133 mL PR (00:19)
--- NOTE | 2021-10-05 00:26 | PC.NURSE ---
Patient reports not being able to have a BM. Lactulose is ordered. First dose no results. Next dose due at 0600. Informed Dr Dumont patient beginning to have bowel pain related to constipation. Received telephone order for Fleet mineral oil enema. RBVO Instructed patient on Fleet enema. Patient verbalized complete understanding and expressed great thanks.
[2021-10-05] MEDS: ipratropium-albuterol 3 mL Neb INHALATION ×4 (02:04→21:05)
[2021-10-05] MEDS: lactulose oral liq 20 gm/30 mL UDC PO (03:16)
[2021-10-05 04:37] LABS: Basophils % 0.2 %; Eosinophils # 0.1 10^3/uL (0.0-0.8); Eosinophils % 1.5 %; Hematocrit 26.9 % (37.0-47.0); Hemoglobin 8.2 g/dL (11.5-15.3); Lymphocytes # 1.1 10^3/uL (0.8-4.8); Lymphocytes % 13.3 %; Mean Corpuscular HGB Conc 30.5 g/dL (30.0-36.0); Mean Corpuscular Hemoglobin 31.5 pg (28.0-34.0); Mean Corpuscular Volume 103.5 fl (81-99); Mean Platelet Volume 9.9 fL (7.4-10.4); Monocytes # 1.1 10^3/uL (0.2-0.9); Monocytes % 12.8 %; Neutrophils # 6.14 10^3/uL (1.8-7.7); Neutrophils % 71.4 %; Nucleated Red Blood Cells % 0 %; Platelet Count 247 10^3/cmm (130-400); Red Cell Distribution Width 12.8 % (12.1-15.1); White Blood Count 8.6 10^3/uL (4.0-10.0)
[2021-10-05 05:00] LABS: Blood Urea Nitrogen 24 mg/dL (8-23); Calcium 8.2 mg/dL (8.5-10.5); Carbon Dioxide 29 mmol/L (22-29); Chloride 98 mmol/L (98-107); Glucose 187 mg/dL (65-115); Magnesium 2.2 mg/dL (1.7-2.3); Osmolality Calculated 295 mOsm/kg (285-295); Sodium 138 mmol/L (136-145)
--- NOTE | 2021-10-05 06:40 | PC.NURSE ---
Shift Note Frequent safety and comfort rounds continue. Orders and/or nursing care completed as indicated. Patient monitored for response to intervention and treatment(s). Education provided includes lactulose and Fleet enema. Patient verbalized complete understanding and hoping for relief of constipation. Patient has not had a BM this night. Patient is reporting cramping to lower abdomen. No other distress observed. . Will continue to monitor.
[2021-10-05] MEDS: pantoprazole DR 40 mg Tablet PO ×2 (10:01→22:19)
[2021-10-05] MEDS: rivaroxaban 10 mg Tablet 20 MG PO (10:01)
[2021-10-05] MEDS: metoprolol tartrate 25 mg Tablet PO ×2 (10:01→20:57)
[2021-10-05] MEDS: oxyCODONE 5 mg IR Tab/Cap PO ×2 (10:02→22:18)
[2021-10-05] MEDS: FUROsemide 40 mg Tablet PO (10:02)
--- NOTE | 2021-10-05 10:58 | PC.SOCIAL ---
IMM UPDATED IMM initialed and dated and copy given to patient
[2021-10-05] MEDS: dilTIAZem 60 mg Tablet PO ×3 (12:28→23:47)
--- NOTE | 2021-10-05 13:00 | PC.NURSE ---
twice today,pt has reported that she threw-up while eating.states i swallow ..and the food just wont go down .states this had occurred off and on for about 2 years...and she has not mentioned it to her primary doctor.pt had no difficulty swallowing yesterday.no coughing noted .dr burk notified.speech eval and modified barium swallow ordered.
[2021-10-05] MEDS: ketorolac 30 mg/mL INJ 15 MG IVP (15:14)
--- NOTE | 2021-10-05 15:31 | P.PN_ITS ---
Subjective Subjective: Interval history: Atrial fibrillation with RVR. Heart rate sustaining in . I discussed with nurse to titrate the Cardizem drip and to switch to oral today. Telemetry reviewed and she has not had any bradycardic episodes. Clinically she is asymptomatic and has no complaints today. She does have an appointment with Dr. Townsend upcoming this Wednesday to have her back wound looked at. She did say that she has a little bit of a fluid collection in her around her right antecubital IV site and there was some pus draining out of there earlier. Vitals/I&O/Wt Last Vital Signs Temp 98.1 F 10/05/21 15:08 Pulse 95 10/05/21 15:08 Resp 23 H 10/05/21 15:08 BP 110/57 10/05/21 15:08 Pulse Ox 94 10/05/21 15:08 10/05/21 10/05/21 10/05/21 06:59 14:59 22:59 Intake Total 600.250 / 600.250 Output Total 475 / 1125 Balance -475 / -515.250 600.250 / 600.250 Weight last 48 hrs Weight 90.582 kg Weight 88.405 kg Physical Exam Narrative: EXAM NARRATIVE: General: Alert oriented x3, patient seen sitting up in bed. HEENT: Normocephalic, atraumatic, EOMI, breathing 2L NC Cardio: Irregularly irregular, normal S1-S2, no murmurs rubs gallops, Respiratory: Clear to auscultation today, no wheezes no rhonchi. GI: Abdomen soft, nontender, nondistended, bowel sounds + Behavior: Appropriate and cooperative Extremities: Pulses 2+, trace bilateral lower extremity edema. Urinary Catheter Management^: Long: Cath Placed During This Visit: yes Reason for Continuing Indwelling Catheter: Acute Urinary Retention or Obstruction Urinary Catheter Date of Insertion: 10/03/21 Urinary Catheter Time of Insertion: 20:11 Data : 10/05/21 03:57 10/05/21 03:57 Micro: Microbiology 10/05/21 08:40 Occult Blood (FIT) - Final Stool - Stool Aspirate A&P Assessment and plan (1) Congestive heart failure: Status: Acute Qualifiers: Heart failure chronicity: acute on chronic Heart failure type: unspecified Qualified Code(s): I50.9 - Heart failure, unspecified (2) Post-op pain: Status: Acute (3) Atrial fibrillation: Status: Acute (4) COPD (chronic obstructive pulmonary disease): Status: Acute (5) Fusion of spine: Status: Acute (6) Hypertension: Status: Acute (7) Hyperlipidemia: Status: Acute (8) Obstructive sleep apnea: Status: Acute (9) Restless leg syndrome: Status: Acute Additional A&P Information #Atrial fibrillation with RVR #Hx of CAD s/p stent #Acute on Chronic Congestive heart failure, unsure what type, no echo on file, BNP elevated 3400 #B/L pleural effusion R > L #HTN #HLD - Has hx of CHF but unsure what type. - Got lasix 20 IV x1 in ER - BNP 3440 -Echo ordered but unable to be done so far due to high heart rate. - Trop 52, 48.56, delta trop negative -Delta troponin negative. ?Switch Lasix to 40 oral daily. ?Has been on Cardizem drip. We will switch her to oral Cardizem today. Metoprolol switched to 25 twice daily. Continue to cardiac telemetry. Discharge once atrial fibrillation under control to follow-up outpatient with cardiology. #Superficial thrombophlebitis of right antecubital IV site ?We will give antibiotics. #Chronic hypoxic respiratory failure, on 2L home O2 ATC #1 cm spiculated pulnonary nodule in left lower lobe - Has B/L pleural effusion. Repeat x-ray for follow-up pending. - Continue oxygen therapy - COVID negative 5 days ago. - PE ruled out - Follow up outpatient regarding pulmonary nodule. 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 - States pain not very controlled - Allergic to morphine - Will order ketoralac 15 g q6H #Hx of Pulm embolism #Hx of DVT #KIMBERLY - Continue xarelto 20 daily #Full Code Diet: Cardiac diet DVT PPX: On Xarelto Attestations Medical Necessity Statement*: discharge in AM. Coding Level of Care Code Acute Replenishment Associate for Garett Fwcornell Diagnoses Congestive heart failure I50.9 Heart failure chronicity: acute on chronic Heart failure type: unspecified Post-op pain G89.18 Atrial fibrillation I48.91 COPD (chronic obstructive pulmonary disease) J44.9 Fusion of spine M43.20 Hypertension I10 Hyperlipidemia E78.5 Obstructive sleep apnea G47.33 Restless leg syndrome G25.81
[2021-10-05] MEDS: saline nasal spray 44mL Btl 1 SPRAY NASAL (18:31)
[2021-10-05 22:32] LABS: Iron 25 ug/dL (37-145); Percent Saturation 12.5 % (20-50); Total Iron Binding Capacity 200 mcg/dl; Transferrin 178 mg/dL (200-360); Unsaturated Iron Binding 175 ug/dL (112-347); Vitamin B12 921 pg/mL (232-1245)
[2021-10-06] VITALS (20 sets, daily range): BP systolic 92–149; BP diastolic 48–72; PULSE 64–109; RESP 10–26; TEMP 36.6–37.4; O2SAT 90–98
[2021-10-06] MEDS: oxyCODONE 5 mg IR Tab/Cap PO ×2 (02:20→10:43)
[2021-10-06] MEDS: ipratropium-albuterol 3 mL Neb INHALATION ×4 (02:50→20:27)
[2021-10-06 05:02] LABS: Basophils % 0.3 %; Eosinophils # 0.2 10^3/uL (0.0-0.8); Eosinophils % 1.3 %; Hematocrit 26.2 % (37.0-47.0); Hemoglobin 7.9 g/dL (11.5-15.3); Lymphocytes # 1.7 10^3/uL (0.8-4.8); Lymphocytes % 14.4 %; Mean Corpuscular HGB Conc 30.2 g/dL (30.0-36.0); Mean Corpuscular Hemoglobin 31.2 pg (28.0-34.0); Mean Corpuscular Volume 103.6 fl (81-99); Mean Platelet Volume 9.9 fL (7.4-10.4); Monocytes # 1.2 10^3/uL (0.2-0.9); Monocytes % 9.6 %; Neutrophils # 8.95 10^3/uL (1.8-7.7); Neutrophils % 73.8 %; Nucleated Red Blood Cells % 0 %; Platelet Count 265 10^3/cmm (130-400); Red Blood Count 2.53 10^6/uL (4.1-5.3); Red Cell Distribution Width 12.7 % (12.1-15.1); White Blood Count 12.1 10^3/uL (4.0-10.0)
[2021-10-06] MEDS: dilTIAZem 60 mg Tablet PO ×3 (05:16→17:42)
[2021-10-06 05:34] LABS: Anion Gap 14.5 (5-19); Blood Urea Nitrogen 19 mg/dL (8-23); Calcium 8.1 mg/dL (8.5-10.5); Carbon Dioxide 32 mmol/L (22-29); Chloride 100 mmol/L (98-107); Glucose 115 mg/dL (65-115); Osmolality Calculated 297 mOsm/kg (285-295); Potassium 4.5 mmol/L (3.5-5.1); Sodium 142 mmol/L (136-145)
[2021-10-06 07:14] LABS: Folate Level 12.5 ng/mL (4.8-37.3)
--- NOTE | 2021-10-06 09:08 | P.CONIM_ITS ---
Providers/Reason For Consult Consulting Physician/Specialty*: Chris Torue MD Reason for Consult*: Difficulty in swallowing and anemia Requesting Physician: Dr. Sandoval Attending Physician: Emma Sandoval MD Primary Care Provider: June Merchant History of Present Illness History of Present Illness Chief Complaint: Issues with swallowing History of present illness: Maria Teresa Woodruff is a 86 year old female admitted to the hospitalist service with history of atrial fibrillation ,chronic back pain, COPD on 2 L of oxygen at home,congestive heart failure, depression, anxiety, cancer vulva, blood clots, hyperlipidemia, hypertension, positive sleep apnea, pulmonary embolism, restless leg syndrome presented to the hospital today via EMS with complaint of shortness of breath since last night. She was discharged on 10/01 from the hospital after undergoing lumbar fusion on 09/29/2021. Patient was restarted on Xarelto on 10/02/2021.she presented to the emergency department in A. fib with RVR rates 120s to 130s. And got admitted to the hospital service for further management. During patient's hospital stay she had issues with moving her bowels then she had a bowel movement that was dark in color but there is no specific identification what kind of color but apparently it was tested positive for occult blood in stool. Subsequently the patient was taken off Xarelto and general surgery was consulted for potential diagnostic EGD She reports no history of gastric ulcer disease in the past but she does have issues with swallowing and she did undergo modified barium swallow speech pathology recommendations: Note below 10/02/21 1. Penetration with thin liquid. No annalisa aspiration. 2. Delayed oropharyngeal phase with emily cracker consistency. 3. Moderate esophageal dysmotility with tertiary contractions and delayed emptying. CTA was done on 10/02/2021 1. No evidence of pulmonary embolus or aortic aneurysm/dissection. 2. There is a 1 cm spiculated nodule in the left lower lobe. Highly suspicious nodule(s). Consider non-emergent PET/CT, or tissue sampling.(Reference: [facility]) 3. Small bilateral pleural effusions. Review of Systems General: Reports: 10 or more systems reviewed and unremarkable except in HPI and below Meds/Allergies Home Medications and Allergies Home Medications Medication Instructions Recorded Confirmed Last Taken Type metoprolol tartrate 25 mg tablet 12.5 mg PO BID 03/07/2910/02/21 10/02/21 History potassium chloride 10 mEq 10 meq PO BID 01/14/21 10/02/21 10/02/21 History capsule,extended release rivaroxaban 20 mg tablet 20 mg PO DAILY #90 tab 01/14/21 10/02/21 10/02/21 Rx ropinirole 4 mg tablet 4 mg PO BEDTIME tab 01/14/21 10/02/21 10/01/21 History venlafaxine 150 mg tablet,extended 150 mg PO DAILY 01/14/21 10/02/21 10/02/21 History release 24 hr ergocalciferol (vitamin D2) 1,250 1,250 mcg PO Q7D 05/21/21 10/02/21 09/28/21 History mcg (50,000 unit) capsule hydrocodone 5 mg-acetaminophen 325 1 tab PO Q6H PRN 05/21/21 10/02/21 09/25/21 History mg tablet clobetasol 0.05 % topical gel 1 applic TOPICAL DAILY 09/09/21 10/02/21 09/27/21 History losartan 25 mg tablet 25 mg PO DAILY 09/09/21 10/02/21 10/02/21 History meloxicam [Mobic] 1 mg PO DAILY 09/25/21 10/02/21 10/02/21 History hydrocodone-acetaminophen 1 - 2 tab PO .Q4-6H #40 tab 10/01/21 10/02/21 Unknown Rx pregabalin [Lyrica] 100 mg PO BEDTIME 10/02/21 10/02/21 10/01/21 History Allergies Allergy/AdvReac Type Severity Reaction Status Date / Time amoxicillin Allergy rash Verified 09/29/21 05:59 morphine Allergy nausea, Verified 09/29/21 05:59 hyper Penicillins Allergy rash Verified 09/29/21 05:59 Tetanus Vaccines and Toxoid Allergy unk Verified 09/29/21 05:59 Current Medications Current Medications Generic Name Dose Route Start Last Admin Trade Name Freq PRN Reason Stop Dose Admin Albuterol/Ipratropium 3 ml 10/03/21 03:00 10/06/21 08:25 Ipratropium-Albuterol 3 Ml Neb INHALATION 3 ml Q6H.RESPIRATORY LV Administration Diltiazem HCl 60 mg 10/05/21 12:30 10/06/21 05:16 Diltiazem 60 Mg Tablet PO 60 mg Q6H LV Administration Docusate Sodium 200 mg 10/02/21 18:00 10/05/21 18:18 Docusate Sodium 100 Mg Capsule PO Not Given BID LV Furosemide 40 mg 10/05/21 09:30 10/05/21 10:02 Furosemide 40 Mg Tablet PO 40 mg DAILY@0800 LV Administration Diltiazem HCl 125 mg/ Sodium 125 mls @ 0 mls/hr 10/03/21 10:33 10/05/21 14:30 Chloride IV Infused .Q0M LV Titration Protocol Per Protocol Lactulose 20 gm 10/04/21 18:00 10/06/21 03:41 Lactulose Oral Liq 20 Gm/30 Ml Udc PO Not Given Q12H LV Metoprolol Tartrate 25 mg 10/05/21 09:00 10/05/21 20:57 Metoprolol Tartrate 25 Mg Tablet PO 25 mg BID@0900,2100 LV Administration Oxycodone HCl 5 mg 10/02/21 14:34 10/06/21 02:20 Oxycodone 5 Mg Ir Tab/Cap PO 5 mg Q6H PRN Administration SEVERE PAIN Pantoprazole Sodium 40 mg 10/05/21 21:15 10/05/21 22:[address] 40 Mg Tablet PO 40 mg BID LV Administration Sodium Chloride 1 spray 10/05/21 15:21 10/05/21 18:31 Saline Nasal [place] 44ml Btl NASAL 2 applic PRN PRN Administration DRYNESS PFSH Acute PFSH: Medical History Atrial fibrillation Chronic back pain COPD (chronic obstructive pulmonary disease) Uses trilogy at night with 2 L. Typically not on oxygen during day. Coronary artery disease Depression Depression with anxiety DVT (deep venous thrombosis) History of cancer of vulva Hx of blood clots Hyperlipidemia Hypertension Lumbar radiculopathy Obstructive sleep apnea Pulmonary embolism Restless leg syndrome Surgical History H/O: hysterectomy History of back surgery History of coronary artery stent placement History of knee replacement History of tonsillectomy Presence of vena cava filter Family History Other Cancer Chronic back pain Social History Smoking and tobacco status: former smoker Alcohol intake: current Alcohol intake frequency: few times a month History of recent travel: No Vitals/I&O/Wt Last Vital Signs Temp 98 F 10/06/21 04:19 Pulse 74 10/06/21 08:34 Resp 14 10/06/21 08:34 BP 109/49 10/06/21 04:19 Pulse Ox 94 10/06/21 08:34 10/05/21 10/06/21 10/06/21 22:59 06:59 14:59 Intake Total 120 / 720.250 350 / 1070.250 Output Total 1500 / 1500 300 / 1800 Balance -1380 / -779.750 50 / -729.750 Weight last 48 hrs Weight 196 lb 12.8 oz Weight 199 lb 11.2 oz Physical Exam Narrative: EXAM NARRATIVE: Patient is conscious alert oriented X3 BMI 34 Head and neck examination PERRLA no masses no cervical lymphadenopathy no jaundice Cardiac examination audible S1-S2 no murmurs no gallops no arrhythmias Chest is clear bilateral,abscence of Rhonchi or wheezes,no surgical emphysema Abdomen nontender nondistended soft no organomegaly guarding or rigidity/no signs of peritonitis Long catheter in place with concentrated urine Urinary Catheter Management^: Long: Cath Placed During This Visit: yes Reason for Continuing Indwelling Catheter: Acute Urinary Retention or Obstruction Urinary Catheter Date of Insertion: 10/03/21 Urinary Catheter Time of Insertion: 20:11 Data Micro: Micro: Microbiology 10/05/21 08:40 Occult Blood (FIT) - Final Stool - Stool Asp irate A&P Assessment and plan (1) Occult blood positive stool: Plan of care; After thorough history and physical examination and reviewing the chart, plan to perform a diagnostic esophagogastroduodenoscopy with possible biopsy in the GI lab. I discussed with the patient in detail the risk,benefits,alternatives and indications.The risk of aspiration, bleeding, soft tissue injury, perforation of the stomach/esophagus and other potential concomitant complications were explained to the patient in details,aslo the potential need for Thoracic and or Abdominal surgery to repair any complications.The patient understood this well and did agree to proceed. Rationale was carefully and clearly discussed with the patient.Appropriate informed consent have been reviewed and signed All questions have been answered and all concerns have been addressed to patient's satisfaction. Status: Acute Consult Attestations Medical Necessity Statement: Per admitting service Time Spent in Patient Care: (>than 50% of time spent in counselling and/or direct pt care on unit) . Coding Level of Care Code Acute Silver Recovery Operator for Chg Fwd Diagnoses Occult blood positive stool R19.5
[2021-10-06] MEDS: docusate sodium 100 mg Capsule 200 MG PO ×2 (10:29→17:42)
[2021-10-06] MEDS: FUROsemide 40 mg Tablet PO (10:29)
[2021-10-06] MEDS: metoprolol tartrate 25 mg Tablet PO (10:30)
[2021-10-06] MEDS: pantoprazole DR 40 mg Tablet PO (10:30)
--- NOTE | 2021-10-06 12:56 | FL_ITS ---
WS: [id number] MODIFIED BARIUM SWALLOW TECHNIQUE: Modified barium swallow with speech therapy using multiple consistencies. FLUOROSCOPY TIME: 2.8 minutes. CLINICAL INFORMATION: Other dysphagia COMPARISON: None. FINDINGS: Multiple consistencies utilized. Penetration with thin liquid. No annalisa aspiration. Delayed oropharyn geal phase with emily cracker consistency. No difficulties with barium tablet. Moderate esophageal dysmotility with tertiary contractions and delayed emptying. FL/FL barium swallow modifd [id number] IMPRESSION: 1. Penetration with thin liquid. No annalisa aspiration. 2. Delayed oropharyngeal phase with emily cracker consistency. 3. Moderate esophageal dysmotility with tertiary contractions and delayed empt priyanka.
--- NOTE | 2021-10-06 15:22 | P.PN_ITS ---
Subjective Subjective: Interval history: Seeing melanotic stools, she had a bowel movement roughly 4 nights ago, no abdominal pain or fever, no previous history of abnormal colonoscopies, never had an EGD, endorsing dysphagia to liquid and solid which has been going on for quite some time, requested modified barium swallow which showed dysmotility, requested Dr. Toure for an EGD for her drop in hemoglobin, she is hemodynamically stable, Xarelto was held yesterday Plan for EGD tomorrow Rate fluctuating between 95-110 A. fib RVR Vitals/I&O/Wt Last Vital Signs Temp 99.3 F 10/06/21 13:22 Pulse 74 10/06/21 14:20 Resp 18 10/06/21 14:20 BP 149/66 10/06/21 13:22 Pulse Ox 94 10/06/21 14:20 10/06/21 10/06/21 10/06/21 06:59 14:59 22:59 Intake Total 350 / 1070.250 720 / 720 Output Total 300 / 1800 Balance 50 / -729.750 720 / 720 Weight last 48 hrs Weight 89.267 kg Weight 90.582 kg Physical Exam Narrative: EXAM NARRATIVE: EOMI, PERRLA patient was laying comfortably in her bed in rt lateral position Variable S1-S2 Nonfocal neuro exam Saturating well on room air, use CPAP overnight and 1 L afterwards, Abdomen soft Bilateral breast without adventitious rhonchi or crackles No lower extremity edema Long catheter draining urine concentrated color Urinary Catheter Management^: Long: Cath Placed During This Visit: yes Reason for Continuing Indwelling Catheter: Acute Urinary Retention or Obstruction Urinary Catheter Date of Insertion: 10/03/21 Urinary Catheter Time of Insertion: 20:11 Data : 10/06/21 04:14 10/06/21 04:14 Micro: Microbiology 10/05/21 08:40 Occult Blood (FIT) - Final Stool - Stool Aspirate A&P Assessment and plan (1) Restless leg syndrome: Status: Acute (2) Obstructive sleep apnea: Status: Acute (3) Acute blood loss anemia (ABLA): Status: Acute (4) Melanotic stools: Status: Acute (5) Dysphagia: Status: Acute (6) Atrial fibrillation: Status: Acute (7) Hx of blood clots: Status: Acute (8) History of pulmonary embolism: Status: Acute Additional A&P Information Dysphagia: Patient is stating that dysphagia has been present for quite some time, endorsing dysphagia to liquid and solid, endorsing regurgitation of food with weight loss, requested Dr. Toure for an EGD Modified barium swallow showed dysmotility as well Speech evaluation, n.p.o. after midnight Anticoagulating agent last dose administered on Wednesday Melanotic stools: Acute blood loss anemia: Hemodynamically stable FOBT positive Held Xarelto A. fib: RVR: Currently on Cardizem 60 every 6 hours, will increase the dose of metoprolol to 50 mg twice a day, hold Lasix Obstructive sleep apnea: CPAP overnight Anxiety: Would use Xanax for as needed basis add escitalopram DNR/DNI Attestations Medical Necessity Statement*: EGD tomorrow Time Spent in Patient Care: 16 - 35 minutes Coding Level of Care Code Acute Regional Environmental Manager for Chg Fwd Diagnoses Restless leg syndrome G25.81 Obstructive sleep apnea G47.33 Acute blood loss anemia (ABLA) D62 Melanotic stools K92.1 Dysphagia R13.10 Atrial fibrillation I48.91 Hx of blood clots Z86.718 History of pulmonary embolism Z86.711
[2021-10-06] MEDS: ALPRAZolam 0.5 mg Tablet PO (17:42)
[2021-10-06] MEDS: HYDROcodone-acetaminophen 10-325 mg Tablet 1 TAB PO (17:43)
[2021-10-06] MEDS: pantoprazole 40 mg SDV IVP (17:44)
[2021-10-06] MEDS: metoprolol tartrate 50 mg Tablet PO (20:53)
[2021-10-07] VITALS (20 sets, daily range): BP systolic 107–174; BP diastolic 51–80; PULSE 60–95; RESP 16–25; TEMP 36.6–37.1; O2SAT 92–98; BMI 33.7
[2021-10-07] MEDS: dilTIAZem 60 mg Tablet PO ×5 (01:11→23:34)
[2021-10-07 03:33] LABS: Basophils % 0.3 %; Eosinophils # 0.4 10^3/uL (0.0-0.8); Eosinophils % 3.9 %; Hematocrit 26.5 % (37.0-47.0); Lymphocytes # 1.9 10^3/uL (0.8-4.8); Lymphocytes % 19.3 %; Mean Corpuscular HGB Conc 30.2 g/dL (30.0-36.0); Mean Corpuscular Hemoglobin 31.4 pg (28.0-34.0); Mean Corpuscular Volume 103.9 fl (81-99); Mean Platelet Volume 9.4 fL (7.4-10.4); Monocytes # 1.1 10^3/uL (0.2-0.9); Monocytes % 11.2 %; Neutrophils # 6.36 10^3/uL (1.8-7.7); Neutrophils % 64.7 %; Nucleated Red Blood Cells % 0 %; Platelet Count 313 10^3/cmm (130-400); Red Blood Count 2.55 10^6/uL (4.1-5.3); Red Cell Distribution Width 12.8 % (12.1-15.1); White Blood Count 9.8 10^3/uL (4.0-10.0)
[2021-10-07 04:05] LABS: Anion Gap 17.1 (5-19); Blood Urea Nitrogen 19 mg/dL (8-23); Calcium 8.1 mg/dL (8.5-10.5); Carbon Dioxide 29 mmol/L (22-29); Chloride 99 mmol/L (98-107); Glucose 96 mg/dL (65-115); Osmolality Calculated 294 mOsm/kg (285-295); Potassium 4.1 mmol/L (3.5-5.1); Sodium 141 mmol/L (136-145)
[2021-10-07] MEDS: ipratropium-albuterol 3 mL Neb INHALATION ×4 (04:06→20:11)
--- NOTE | 2021-10-07 06:44 | PC.NURSE ---
Frequent safety and comfort rounds continue. Orders and/or nursing care completed as indicated. Patient monitored for response to intervention and treatment(s). Education provided includes being npo after midnight.. Patient and/or artist representative verbalize understanding. Will continue to monitor.
[2021-10-07] MEDS: sodium chloride 0.9% 1,000 ML 30 ML IV (07:22)
--- NOTE | 2021-10-07 07:43 | P.ANESASSM_ITS ---
Pre-Anesthetic Assessment Pre-Anesthetic Assessment: Height/Weight: Height 1.63 m Weight 89.267 kg Temp Pulse Resp BP Pulse Ox 98.0 F 72 18 116/59 95 10/07/21 07:34 10/07/21 07:41 10/07/21 07:41 10/07/21 07:41 10/07/21 07:41 Preop Diagnosis: degen scoliosis; neurogenic cladication Proposed Procedure: Operation Date: 10/07/21 10:45 Proposed Procedures p EGD(Not Applicable) - Chris Toure MD Was Beta Dain taken within 24 hours: Yes Was Clonidine taken within 24 hours: N/A Last intake: Intake Last Liquid Date 10/06/21 Last Liquid Time 23:00 Last Solid Date 10/06/21 Last Solid Time 23:00 Social: Social History: No alcohol and No tobacco Exam: Pre-Anes Outpt Exam: alert, oriented x 3, clear to auscultation bilaterally and regular rate & rhythm Airway: Submandibular: WNL Cervical ROM: WNL MP: 2 Dentition: Par tials CV/HEM: CV/HEM: Afib, Anemia, DVT and HTN Musc/skel: Musc/skel: Lower Back Pain Neuropsych: Neuropsych: Anxiety, Depression and Neuropathy Anesthetic Plan: ASA status: 3 Anesthesia: MAC Risk of > 500 ml blood loss (7ml/kg in children): No Meds/Allergies Current Medications: Current Medications Generic Name Dose Route Start Last Admin Trade Name Freq PRN Reason Stop Dose Admin Hydrocodone Bitart /Acetaminophen 1 tab 10/06/21 17:37 10/06/21 17:43 Hydrocodone-Acet aminophen 10-325 M g Tablet PO 1 tab Q4H PRN Administration MODERATE PAIN Albuterol/Ipratrop ium 3 ml 10/03/21 03:00 10/07/21 04:06 Ipratropium-Albu terol 3 Ml Neb INHALATION 3 ml Q6H.RESPIRATORY S CH Administration Alprazolam 0.5 mg 10/06/21 15:30 10/06/21 17:42 Alprazolam 0.5 M g Tablet PO 0.5 mg BID PRN Administration AGITATION Diltiazem HCl 60 mg 10/05/21 12:30 10/07/21 06:30 Diltiazem 60 Mg Tablet PO 60 mg Q6H LV Administration Docusate Sodium 200 mg 10/02/21 18:00 10/06/21 17:42 Docusate Sodium 100 Mg Capsule PO 200 mg BID LV Administration Furosemide 40 mg 10/05/21 09:30 10/06/21 10:29 Furosemide 40 Mg Tablet PO 40 mg DAILY@0800 LV Administration Sodium Chloride 1,000 mls @ 30 ml s/hr 10/07/21 07:00 10/07/21 07:22 Sodium Chloride 0.9% IV 10/08/21 06:59 30 mls/hr .Q24H LV Administration Lactulose 20 gm 10/04/21 18:00 10/07/21 06:25 Lactulose Oral L iq 20 Gm/30 Ml Udc PO Not Given Q12H LV Metoprolol Tartrat e 50 mg 10/06/21 21:00 10/06/21 20:53 Metoprolol Tartr ate 50 Mg Tablet PO 50 mg BID@0900,2100 LV Administration Pantoprazole Sodiu m 40 mg 10/06/21 18:00 10/06/21 17:44 Pantoprazole 40 Mg Sdv IVP 40 mg BID LV Administration Sodium Chloride 1 spray 10/05/21 15:21 10/05/21 18:31 Saline Nasal Spr ay 44ml Btl NASAL 2 applic PRN PRN Administration DRYNESS PFSH Anesthesia PFSH: Medical History Atrial fibrillation Chronic back pain COPD (chronic obstructive pulmonary disease) Uses trilogy at night with 2 L. Typically not on oxygen during day. Coronary artery disease Depression Depression with anxiety DVT (deep venous thrombosis) History of cancer of vulva Hx of blood clots Hyperlipidemia Hypertension Lumbar radiculopathy Obstructive sleep apnea Pulmonary embolism Restless leg syndrome Surgical History H/O: hysterectomy History of back surgery History of coronary artery stent placement History of knee replacement History of tonsillectomy Presence of vena cava filter Family History Other Cancer Chronic back pain Social History Smoking and tobacco status: former smoker Alcohol intake: current Alcohol intake frequency: few times a month History of recent travel: No Data Anesthesia CBC & Chem 7: 10/07/21 03:12 10/07/21 03:12 Other Labs: Laboratory Results - last 48 hr 10/05/21 10/05/21 10/05/21 03:57 03:57 21:19 WBC RBC Hgb Hct MCV MCH MCHC RDW Plt Count MPV Neut % (Auto) Lymph % (Auto) [place] % (Auto) Eos % (Auto) Baso % (Auto) Neut # (Auto) Lymph # (Auto) [place] # (Auto) Eos # (Auto) Baso # (Auto) Nucleated RBC % (auto) Nucleated RBCs # Sodium Potassium Chloride Carbon Dioxide Anion Gap BUN Creatinine GFR Calculation Glucose Calculated Osmolality Calcium Magnesium Iron 25 L Cancelled TIBC 200 % Saturation 12.5 L Unsat Iron Binding 175 Transferrin 178 L Vitamin B12 921 Folate Blood Type B Positive Rho(D) Type Positive Antibody Screen Negative Crossmatch See Detail 10/06/21 10/06/21 10/06/21 04:14 04:14 04:14 WBC 12.1 H RBC 2.53 L Hgb 7.9 L Hct 26.2 L MCV 103.6 H MCH 31.2 MCHC 30.2 RDW 12.7 Plt Count 265 MPV 9.9 Neut % (Auto) 73.8 Lymph % (Auto) 14.4 [place] % (Auto) 9.6 Eos % (Auto) 1.3 Baso % (Auto) 0.3 Neut # (Auto) 8.95 H Lymph # (Auto) 1.7 [place] # (Auto) 1.2 H Eos # (Auto) 0.2 Baso # (Auto) 0.0 Nucleated RBC % (auto) 0 Nucleated RBCs # 0.0 Sodium 142 Potassium 4.5 Chloride 100 Carbon Dioxide 32 H Anion Gap 14.5 BUN 19 Creatinine 0.7 GFR Calculation Not Reportable Glucose 115 Calculated Osmolality 297 H Calcium 8.1 L Magnesium 2.0 Iron TIBC % Saturation Unsat Iron Binding Transferrin Vitamin B12 Folate 12.5 Blood Type Rho(D) Type Antibody Screen Crossmatch 10/07/21 10/07/21 03:12 03:12 WBC 9.8 RBC 2.55 L Hgb 8.0 L Hct 26.5 L MCV 103.9 H MCH 31.4 MCHC 30.2 RDW 12.8 Plt Count 313 MPV 9.4 Neut % (Auto) 64.7 Lymph % (Auto) 19.3 [place] % (Auto) 11.2 Eos % (Auto) 3.9 Baso % (Auto) 0.3 Neut # (Auto) 6.36 Lymph # (Auto) 1.9 [place] # (Auto) 1.1 H Eos # (Auto) 0.4 Baso # (Auto) 0.0 Nucleated RBC % (auto) 0 Nucleated RBCs # 0.0 Sodium 141 Potassium 4.1 Chloride 99 Carbon Dioxide 29 Anion Gap 17.1 BUN 19 Creatinine 0.9 GFR Calculation Not Reportable Glucose 96 Calculated Osmolality 294 Calcium 8.1 L Magnesium Iron TIBC % Saturation Unsat Iron Binding Transferrin Vitamin B12 Folate Blood Type Rho(D) Type Antibody Screen Crossmatch Cardiac Studies: Echocardiogram 10/04/21
--- NOTE | 2021-10-07 07:44 | PC.NURSE ---
\patient awake, alert and oriented x3. Abdomen soft, non tender, BS hypoactive x4.
--- NOTE | 2021-10-07 07:44 | ANE.PACU2 ---
Inpatient post-anesthesia follow up: Airway intact: Yes Vital signs: Temperature 98.0 F Pulse Rate 72 Respiratory Rate 18 Blood Pressure 116/59 Pulse Oximetry 95 Oxygen Delivery Me thod Nasal Cannula Oxygen Flow Rate 2 Fraction of Inspir ed Oxygen 2 Hydration adequate: Yes Nausea and vomiting: No Pain level: 1 Mental status: Baseline
--- NOTE | 2021-10-07 07:47 | PC.NURSE ---
report called to Geno
[2021-10-07] MEDS: docusate sodium 100 mg Capsule 200 MG PO ×2 (09:07→19:02)
[2021-10-07] MEDS: metoprolol tartrate 50 mg Tablet PO ×2 (09:07→19:29)
[2021-10-07] MEDS: pantoprazole 40 mg SDV IVP ×2 (09:07→19:02)
[2021-10-07] MEDS: sennosides-docusate Tablet 2 TAB PO (09:29)
[2021-10-07] MEDS: ALPRAZolam 0.5 mg Tablet PO ×2 (09:30→19:29)
--- NOTE | 2021-10-07 10:02 | PC.SOCIAL ---
IMM Updated Updated pt on IMM. No questions voiced. Provided pt a copy. Initialed, dated, & timed copy in chart.
[2021-10-07] MEDS: peg /e-lyte soln 4,000 mL Btl 4000 ML PO (12:33)
[2021-10-07 14:25] LABS: Coronavirus Test Green County Not Detected
--- NOTE | 2021-10-07 14:27 | PM.PN ---
Subjective Subjective: Interval history: EGD showed hiatal hernia and GERD related findings, will plan for colonoscopy tomorrow morning, start GoLYTELY today Clear liquid until midnight Patient is not endorsing overnight events, no active abdominal pain or melanotic stools. Vitals/I&O/Wt Last Vital Signs Temp 98.7 F 10/07/21 12:00 Pulse 70 10/07/21 14:25 Resp 16 10/07/21 14:25 BP 125/56 10/07/21 12:00 Pulse Ox 97 10/07/21 14:25 10/06/21 10/07/21 10/07/21 22:59 06:59 14:59 Intake Total 360 / 1080 360 / 1440 200 / 200 Output Total 775 / 775 775 / 1550 1200 / 1200 Balance -415 / 305 -415 / -110 -1000 / -1000 Weight last 48 hrs Weight 89.267 kg Weight 89.267 kg Physical Exam Narrative: EXAM NARRATIVE: Patient was laying comfortably in bed S1, S2 variable Abdomen is soft nontender bowel sounds present Lower extremity no edema EOMI, PERRLA Nonfocal neuro exam Appropriate mood and affect Saturating well on 1.5 L nasal cannula Urinary Catheter Management^: Long: Cath Placed During This Visit: yes Reason for Continuing Indwelling Catheter: Not indwelling catheter Urinary Catheter Date of Insertion: 10/03/21 Urinary Catheter Time of Insertion: 20:11 Data : 10/07/21 03:12 10/07/21 03:12 A&P Assessment and plan (1) Occult blood positive stool: Status: Acute (2) Dysphagia: Status: Acute (3) Melanotic stools: Status: Acute (4) Acute blood loss anemia (ABLA): Status: Acute (5) Restless leg syndrome: Status: Acute (6) Obstructive sleep apnea: Status: Acute (7) Fusion of spine: Status: Acute (8) Atrial fibrillation: Status: Acute (9) History of pulmonary embolism: Status: Acute (10) Hx of blood clots: Status: Acute Additional A&P Information A. fib: Without RVR improved on Cardizem and increased dose of metoprolol Not a candidate for anticoagulation until next 2 weeks Acute blood loss anemia, melanotic stool EGD unremarkable showed GERD and hiatal hernia changes, plan for colonoscopy tomorrow Spiculated lung nodule, will need outpatient follow-up Dysphagia: Esophageal dysmotility: We will request outpatient GI follow-up no mass seen in EGD, contractions and delayed emptying noted on modified barium swallow N.p.o. after midnight DNR/DNI Family updated, spoke with the daughter in the morning Attestations Medical Necessity Statement*: Colonoscopy tomorrow, planning for discharge afterwards Time Spent in Patient Care: 16 - 35 minutes Coding Level of Care Code Acute Senior Windows Systems Administrator for Chg Fwd Diagnoses Occult blood positive stool R19.5 Dysphagia R13.10 Melanotic stools K92.1 Acute blood loss anemia (ABLA) D62 Restless leg syndrome G25.81 Obstructive sleep apnea G47.33 Fusion of spine M43.20 Atrial fibrillation I48.91 History of pulmonary embolism Z86.711 Hx of blood clots Z86.718
--- NOTE | 2021-10-07 16:38 | PC.OT ---
OT tx attempted 2x today. Pt was at medical procedure in the a.m. and prepping for another medical procedure in the p.m. Tx will be attempted again tomorrow.
[2021-10-07] MEDS: lactulose oral liq 20 gm/30 mL UDC PO (19:04)
--- NOTE | 2021-10-07 19:39 | PC.NURSE ---
Received report from NADYA Lora. Patient sitting on edge of bed. Discussed plan for colonoscopy in the morning with bowel prep. Patient verbalized understanding and stated, I have been working on my [employer]. Patient denies pain presently but does feel anxious . Medications given as ordered. No other distresses observed.
[2021-10-08] VITALS (10 sets, daily range): BP systolic 103–176; BP diastolic 58–74; PULSE 53–75; RESP 16–21; TEMP 36.5–36.6; O2SAT 91–96
[2021-10-08] MEDS: ipratropium-albuterol 3 mL Neb INHALATION ×2 (02:56→08:54)
[2021-10-08] MEDS: dilTIAZem 60 mg Tablet PO (04:33)
[2021-10-08] MEDS: lactulose oral liq 20 gm/30 mL UDC PO (04:33)
[2021-10-08] MEDS: ALPRAZolam 0.5 mg Tablet PO (05:52)
[2021-10-08] MEDS: HYDROcodone-acetaminophen 10-325 mg Tablet 1 TAB PO (05:54)
--- NOTE | 2021-10-08 06:52 | PC.NURSE ---
~0530 patient reports she feels like she cannot breathe. Patient slept without her Trilogy last night. Trilogy was placed. Patient writhing in bed. Administered xanax and hydrocodone for pain as ordered. Patient is now resting comfortably. No distress observed.
[2021-10-08 08:32] LABS: Basophils % 0.4 %; Eosinophils # 0.3 10^3/uL (0.0-0.8); Eosinophils % 3.4 %; Hematocrit 28.5 % (37.0-47.0); Hemoglobin 8.3 g/dL (11.5-15.3); Lymphocytes # 1.7 10^3/uL (0.8-4.8); Lymphocytes % 17.2 %; Mean Corpuscular HGB Conc 29.1 g/dL (30.0-36.0); Mean Corpuscular Hemoglobin 30.9 pg (28.0-34.0); Mean Corpuscular Volume 105.9 fl (81-99); Mean Platelet Volume 9.3 fL (7.4-10.4); Monocytes # 0.9 10^3/uL (0.2-0.9); Monocytes % 8.7 %; Neutrophils # 6.88 10^3/uL (1.8-7.7); Neutrophils % 69.6 %; Nucleated Red Blood Cells % 0 %; Platelet Count 388 10^3/cmm (130-400); Red Blood Count 2.69 10^6/uL (4.1-5.3); Red Cell Distribution Width 12.4 % (12.1-15.1); White Blood Count 9.9 10^3/uL (4.0-10.0)
[2021-10-08 08:47] LABS: Anion Gap 17.1 (5-19); Blood Urea Nitrogen 11 mg/dL (8-23); Calcium 8.3 mg/dL (8.5-10.5); Carbon Dioxide 27 mmol/L (22-29); Chloride 99 mmol/L (98-107); Glucose 111 mg/dL (65-115); Osmolality Calculated 288 mOsm/kg (285-295); Potassium 4.1 mmol/L (3.5-5.1); Sodium 139 mmol/L (136-145)
--- NOTE | 2021-10-08 09:43 | PC.NURSE ---
spoke with Dr Sandoval about concerns of NPO status and morning medications ok to hold PO meds at this time
--- NOTE | 2021-10-08 10:33 | P.PN_ITS ---
Subjective Subjective: Interval history: Patient overall feels well. Got an EGD yesterday for diagnostic purposes and was found to have reflux esophagitis and small hiatal hernia. There was no evidence of bleeding. Medications: Reviewed: Yes Vitals/I&O/Wt Last Vital Signs Temp 98 F 10/08/21 03:27 Pulse 65 10/08/21 08:58 Resp 16 10/08/21 08:58 BP 103/69 10/08/21 03:27 Pulse Ox 95 10/08/21 08:58 10/07/21 10/08/21 10/08/21 22:59 06:59 14:59 Intake Total 600 / 1760 Output Total 300 / 1500 Balance 300 / 260 Weight last 48 hrs Weight 198 lb 1.6 oz Weight 196 lb 12.8 oz Physical Exam Narrative: EXAM NARRATIVE: Patient is conscious alert oriented X3 BMI 34 Head and neck examination PERRLA no masses no cervical lymphadenopathy no jaundice Abdomen nontender nondistended soft no organomegaly guarding or rigidity/no signs of peritonitis Urinary Catheter Management^: Long: Cath Placed During This Visit: yes, but has since been removed by the nurse Reason for Continuing Indwelling Catheter: Not indwelling catheter Urinary Catheter Date of Insertion: 10/03/21 Urinary Catheter Time of Insertion: 20:11 Date Urinary Catheter Removed: 10/07/21 Time Urinary Catheter Discontinued: 08:10 Data : 10/08/21 08:08 10/08/21 08:08 Micro: Microbiology 10/02/21 19:13 Blood Culture - Final Blood NO GROWTH AFTER 5 DAYS 10/02/21 19:01 Blood Culture - Final Blood NO GROWTH AFTER 5 DAYS A&P Assessment and plan (1) Acute blood loss anemia (ABLA): Plan of care; After thorough history and no further explanation where the patient is losing blood from and physical examination and reviewing the chart, plan to perform diagnostic colonoscopy. I discussed with the patient in details the risks,benefits,alternatives and indications.The risk of aspiration, bleeding, soft tissue injury, perforation of the colon and other potential concomitant complications were explained to the patient in details,also the potential need for Laproscoy/Laparotomy to repair any related complications including but not limited to colectomy and or Closotomy.The patient understood this well and did agree to proceed. Rationale was carefully and clearly discussed with the patient.Appropriate informed consent have been reviewed and signed All questions have been answered and all concerns have been addressed to patient's satisfaction. Verbal and written Instructions were given to the patient for colonoscopy prep. Further education was given to the patient and her spouse as if the colonoscopy showed no significant findings next up would be a capsule endoscopy versus enteroscopy. Also given the fact that the patient had recent spine surgery with hardware placement back on 09/29/2021, as my concern for potential bacterial translocation and seeding the hardware. And subsequently I elected to reach out to Dr. Combs,as from spine surgery standpoint of view there he has no contraindication to proceed with colonoscopy. I will have the patient start on ciprofloxacin and Flagyl IV as empiric treatment before the colonoscopy for prophylaxis measures. Patient understands and agrees to proceed accordingly We will plan to have the patient logrolled all the time periprocedure Status: Acute Attestations Medical Necessity Statement*: Per admitting service Time Spent in Patient Care: 16 - 35 minutes (>than 50% of time spent in counselling and/or direct pt care on unit) . Coding Level of Care Code Acute Field Operations Farm Manager for Garett Leija Diagnoses Acute blood loss anemia (ABLA) D62
[2021-10-08] MEDS: sodium chloride 0.9% 1,000 ML 30 ML IV (11:08)
[2021-10-08] MEDS: metroNIDAZOLE IV 500 MG/100 ML PREMIX 100 MG IV (11:17)
--- NOTE | 2021-10-08 11:28 | ANES.PAUD2 ---
Documented by User: Erik Robles Jr, MANAGING PRINCIPAL 10/08/21 11:29 Pre-Anesthetic Update Pre-Anesthetic Assessment: Date of Surgery/Procedure: 10/08/21 Preop Diagnosis: Anemia and dark stool Proposed Procedure: Operation Date: 10/07/21 10:45 Proposed Procedures p EGD(Not Applicable) - Chris Toure MD Operation Date: 10/08/21 11:30 Proposed Procedures p Colonoscopy(Not Applicable) - Chris Toure MD Any changes to Pre-Anesthetic Assessment?: No Last Intake: Intake Last Liquid Date 10/06/21 Last Liquid Time 23:00 Last Solid Date 10/06/21 Last Solid Time 23:00 Labs Last 48hrs: Laboratory Results - last 48 hr 10/06/21 10/07/21 10/07/21 15:00 03:12 03:12 WBC 9.8 RBC 2.55 L Hgb 8.0 L Hct 26.5 L MCV 103.9 H MCH 31.4 MCHC 30.2 RDW 12.8 Plt Count 313 MPV 9.4 Neut % (Auto) 64.7 Lymph % (Auto) 19.3 [place] % (Auto) 11.2 Eos % (Auto) 3.9 Baso % (Auto) 0.3 Neut # (Auto) 6.36 Lymph # (Auto) 1.9 [place] # (Auto) 1.1 H Eos # (Auto) 0.4 Baso # (Auto) 0.0 Nucleated RBC % (a uto) 0 Nucleated RBCs # 0.0 Sodium 141 Potassium 4.1 Chloride 99 Carbon Dioxide 29 Anion Gap 17.1 BUN 19 Creatinine 0.9 GFR Calculation Not Reportable Glucose 96 Calculated Osmolal ity 294 Calcium 8.1 L Nasal/Oral COVID-1 9 PCR Not detected 10/08/21 10/08/21 08:08 08:08 WBC 9.9 RBC 2.69 L Hgb 8.3 L Hct 28.5 L MCV 105.9 H MCH 30.9 MCHC 29.1 L RDW 12.4 Plt Count 388 MPV 9.3 Neut % (Auto) 69.6 Lymph % (Auto) 17.2 [place] % (Auto) 8.7 Eos % (Auto) 3.4 Baso % (Auto) 0.4 Neut # (Auto) 6.88 Lymph # (Auto) 1.7 [place] # (Auto) 0.9 Eos # (Auto) 0.3 Baso # (Auto) 0.0 Nucleated RBC % (a uto) 0 Nucleated RBCs # 0.0 Sodium 139 Potassium 4.1 Chloride 99 Carbon Dioxide 27 Anion Gap 17.1 BUN 11 Creatinine 0.6 GFR Calculation Not Reportable Glucose 111 Calculated Osmolal ity 288 Calcium 8.3 L Nasal/Oral COVID-1 9 PCR Vitals: Temperature 98 F 10/08/21 03:27 Temperature Source Temporal Artery S can 10/08/21 03:27 Pulse Rate 65 10/08/21 08:58 Pulse Rhythm 10/08/21 00:00 Pulse Strength 3+ Normal 10/08/21 00:00 Respiratory Rate 16 10/08/21 08:58 Respiratory Effort Non-Labored 10/08/21 00:00 Respiratory Depth Normal 10/08/21 00:00 Respiratory Patter n 10/06/21 10:43 Blood Pressure 103/69 10/08/21 03:27 Blood Pressure Kathy n 80 10/08/21 03:27 Blood Pressure Pos ition Supine 10/08/21 03:27 Pulse Oximetry 95 10/08/21 08:58 Oxygen Delivery Me thod 10/08/21 08:58 Oxygen Flow Rate 2 10/08/21 08:58 Fraction of Inspir ed Oxygen 2 10/03/21 02:34 Sepsis Recent Feve r Within 48 Hours No 10/02/21 14:14 Sepsis New/Unexpla ined Change in Men mj Status No 10/02/21 10:02 Exam: Pre-Anes Outpt Exam: alert, oriented x 3, clear to auscultation bilaterally and regular rate & rhythm Cardiac Studies: Echocardiogram 10/04/21 Documented by User: Jann Lozoya 10/08/21 13:26 Pre-Anesthetic Update Pre-Anesthetic Assessment: Date of Surgery/Procedure: 10/08/21 Cardiac Studies: Echocardiogram 10/04/21
[2021-10-08] MEDS: ciprofloxacin 200 MG/100 ML PREMIX 100 MG IV (11:31)
--- NOTE | 2021-10-08 12:09 | P.DS_ITS ---
Discharge Providers Date of Admission: 10/02/21 14:41 Date of Discharge: October 08, 2021 Attending Provider at Admission: Maria Guadalupe Campbell MD Attending Provider at Discharge: Emma Sandoval MD Primary Care Provider: June Merchant Diagnoses at Discharge Discharge Diagnosis (1) Acute blood loss anemia (ABLA): Status: Acute Reason for Visit Reason for Visit: SOB, BACK PAIN Hospital Course Hospital Course HPIllness by Dr Campbell Maria Teresa Woodruff is a 86 year old female with past medical history of atrial fibrillation, chronic back pain, COPD on 2 L oxygen at home, coronary artery disease, congestive heart failure, depression, anxiety, cancer vulva, blood clots, hyperlipidemia, hypertension, positive sleep apnea, pulmonary embolism, restless leg syndrome presented to the hospital today via EMS with complaint of shortness of breath since last night. She was discharged on 10/01 from the hospital after undergoing lumbar fusion on 09/29/2021. When EMS arrived patient was found to be in A. fib with RVR rates 120s to 130s. She restarted her Xarelto this morning. Metoprolol was restarted prior to discharge. She states that she took Lester this morning around 6 AM and has been on oxycodone in the past but no longer taking. He has been trying to get relief from medical marijuana in form of capsules including topical cream. Shortness of breath is her only complaint. When she takes a deep breath she sometimes has pain in her chest. She also reports some palpitations. Denies abdominal pain, nausea, vomiting, diarrhea, constipation, headache, fever at home. States she is supposed to be on lasix but does not take it because it makes her urinate. She is also requesting not to put a small and promises to urinate in a hat. She has been feeling edematous and now got short of breath therefore came to ER. Denies cough, fever, sputum production. Had a meeting/event planner but has not seen in a long time. Would like a new meeting/event planner. Does not recal having an echo. ED course: On arrival to ER pulse 124, temperature 98.2, respiratory rate 18, blood pressure 127/82, pulse oximetry 98%. Patient was given Lasix 20 IV x1. BNP 3400. Afebrile, hemoglobin 8.2, WBC 12.7, urine shows trace leukocyte esterase, urine WBC 10-1 Hosp Course: Patient was admitted for management of A. fib RVR. Her A. fib was very difficult to control. Cardizem drip was used for about 24 to 36 hours, she was put on Cardizem 60 mg every 6 along metoprolol tartrate 25 mg twice daily which was increased to 50 mg twice daily. Her heart rate improved, it was staying between 60 to 70s. During this hospitalization her H&H dropped gradually. FOBT positive. Patient endorsed melanotic stools. EGD and colonoscopy unremarkable. Her anemia most likely is secondary to postoperative blood loss. She can follow-up outpatient for capsule endoscopy. Hemoglobin has stabilized at the level of 8. On time of discharge it is 8.3. She is hemodynamically stable. At the time of discharge she will get Cardizem 120 mg along metoprolol 25 mg twice daily, I have asked her to hold her anticoagulating agent for next 2 weeks and repeat her CBC if hemoglobin stays stable she can resume her anticoagulating agent considering history of A. fib DVT and PE. Physical Exam Narrative: EXAM NARRATIVE: female Nonfocal neuro exam Saturating well on room air Variable S1-S2 Abdomen soft Proximity no edema Nonfocal neuro exam EOMI, PERRLA Fatigue and lethargic Urinary Catheter Management^: Small: Cath Placed During This Visit: yes, but has since been removed by the nurse Reason for Continuing Indwelling Catheter: Not indwelling catheter Urinary Catheter Date of Insertion: 10/03/21 Urinary Catheter Time of Insertion: 20:11 Date Urinary Catheter Removed: 10/07/21 Time Urinary Catheter Discontinued: 08:10 Discharge Data Data Completed and Pending: Completed Studies During Hospitalization Category Date Time Status CT angio chest PE protcl [id number] Urge nt Cat Scan 10/02/21 11:43 Completed FL barium swallow modifd [id number] Rout ine Exams 10/06/21 12:56 Completed XR chest 1V kristy ble [id number] Routine Exams 10/03/21 15:10 Completed XR chest 1V kristy ble [id number] Routine Exams 10/04/21 08:06 Completed XR chest 1V kristy ble [id number] Stat Exams 10/02/21 10:08 Completed CV. echo complete * [id number] Routine Ultrasound 10/04/21 06:00 Completed Pending at discharge Category Date Time Status Leukocyte Reduced RBC Routine Lab 10/05/21 21:19 Results Type and Screen R outine Lab 10/05/21 21:19 Results Labs from last 24 hours 10/08/21 10/08/21 10/06/21 08:08 08:08 15:00 WBC 9.9 RBC 2.69 L Hgb 8.3 L Hct 28.5 L MCV 105.9 H MCH 30.9 MCHC 29.1 L RDW 12.4 Plt Count 388 MPV 9.3 Neut % (Auto) 69.6 Lymph % (Auto) 17.2 [place] % (Auto) 8.7 Eos % (Auto) 3.4 Baso % (Auto) 0.4 Neut # (Auto) 6.88 Lymph # (Auto) 1.7 [place] # (Auto) 0.9 Eos # (Auto) 0.3 Baso # (Auto) 0.0 Nucleated RBC % (a uto) 0 Nucleated RBCs # 0.0 Sodium 139 Potassium 4.1 Chloride 99 Carbon Dioxide 27 Anion Gap 17.1 BUN 11 Creatinine 0.6 GFR Calculation Not Reportable Glucose 111 Calculated Osmolal ity 288 Calcium 8.3 L Nasal/Oral COVID-1 9 PCR Not detected Vitals: Last Vital Signs Temp 97.7 F 10/08/21 11:57 Pulse 53 L 10/08/21 11:57 Resp 18 10/08/21 11:57 BP 140/58 10/08/21 11:57 Pulse Ox 95 10/08/21 11:57 Discharge Plan Discharge Patient Disposition: Home Condition: Stable Prescriptions: New pantoprazole [Protonix] 20 mg tablet,delayed release (DR/EC) 20 mg PO DAILY Qty: 20 RF: 4 Cardizem LA 120 mg tablet extended release 24 hr 120 mg PO DAILY Qty: 60 RF: 2 Continued potassium chloride 10 mEq capsule, extended release 10 meq PO BID RF: 0 ropinirole 4 mg tablet 4 mg PO BEDTIME RF: 0 venlafaxine 150 mg tablet extended release 24hr 150 mg PO DAILY RF: 0 ergocalciferol (vitamin D2) 1,250 mcg (50,000 unit) capsule 1,250 mcg PO Q7D RF: 0 hydrocodone-acetaminophen 5-325 mg tablet 1 tab PO Q6H PRN (Reason: Pain) RF: 0 clobetasol 0.05 % gel 1 applic topical DAILY RF: 0 losartan 25 mg tablet 25 mg PO DAILY RF: 0 hydrocodone-acetaminophen 5-325 mg tablet 1 - 2 tab PO .Q4-6H Qty: 40 RF: 0 Lyrica 100 mg Capsule 100 mg PO BEDTIME RF: 0 Changed metoprolol tartrate 25 mg tablet 25 mg PO BID Qty: 60 RF: 2 Held Xarelto 20 mg tablet 20 mg PO DAILY Qty: 90 RF: 3 Hold Instructions: Resume on 10/22/21. Discontinued meloxicam [Mobic] 15 mg tablet 1 mg PO DAILY RF: 0 Discharge Orders: Discharge Order (Routine); Ordered 10/08/21 Ordered By: Emma Sandoval Other Ambulatory Orders: Complete Blood Count w/Auto (Routine) Timeframe: 3 Days Location: Determined by Patient Ordered By: Emma Sandoval Referrals: June Merchant [Primary Care Provider] - 4-7 days (Please follow-up with June Merchant on Wednesday, Oct.13 at 11:00A.M. If you haave any questions or need to reschedule. Please ) Discharge Diet: Cardiac Discharge Activity: Increase activity as tolerated Patient Instructions: Diltiazem (By mouth), Pantoprazole (By mouth) (Protonix), CHF Stoplight, COPD Stoplight, Chest Pain Stoplight, GI Discharge Instructions, Opioid Safety Activity Restrictions/Additional Instructions: hold xarelto for 2 weeks recheck cbc and if hg stable, can resume it if hg drops further you might need capsule endoscopy Discharge Attestations Time Spent in Discharge Care*: less than 30 min Quality Metrics Clinical Quality Measures During this hospital stay, did patient experience: None Coding Level of Care Code Acute Chg FW DC note Diagnoses Acute blood loss anemia (ABLA) D62
--- NOTE | 2021-10-08 13:26 | ANE.PACU2 ---
Inpatient post-anesthesia follow up: Airway intact: Yes Vital signs: Temperature 97.7 F Pulse Rate 63 Respiratory Rate 18 Blood Pressure 158/74 Pulse Oximetry 91 Oxygen Delivery Me thod Nasal Cannula Oxygen Flow Rate 3 Fraction of Inspir ed Oxygen 2 Hydration adequate: Yes Nausea and vomiting: No Pain level: 1 Mental status: Baseline
--- NOTE | 2021-10-08 14:04 | PC.NURSE ---
Discharge Note Patient discharged to Home via Private vehicle accompanied by spouse. Discharge instructions reviewed with patient and/or claim representative. Mobile pharmacy medications and/or prescriptions provided. Belongings/home medications returned.
== END 2021-10-08 14:05 | disposition home health service (06) | DRG 308 ==
LOC: ER 15:55 → MEDSURG 17:14 → CSU 10-03 11:02
PROVIDERS: Surgery; Admitting Provider Internal Medicine; Emergency Provider Family Medicine; PCP Nurse Practitioner Family; Visit Provider Internal Medicine
PROC: 0DJ08ZZ Inspection of Upper Intestinal Tract, Via Natural or Artificial Opening Endoscopic (ICD-10-PCS; CPT 43235; principal; 2021-10-07 10:45)
PROC: 0DJD8ZZ Inspection of Lower Intestinal Tract, Via Natural or Artificial Opening Endoscopic (ICD-10-PCS; CPT 45378; principal; 2021-10-08 11:30)
DX: I48.91 Unspecified atrial fibrillation (principal); I50.33 Acute on chronic diastolic (congestive) heart failure; D62 Acute posthemorrhagic anemia; K92.1 Melena; J96.11 Chronic respiratory failure with hypoxia; K44.9 Diaphragmatic hernia without obstruction or gangrene; Z98.1 Arthrodesis status; G89.29 Other chronic pain; J44.9 Chronic obstructive pulmonary disease, unspecified; I25.10 Atherosclerotic heart disease of native coronary artery without angina pectoris; I11.0 Hypertensive heart disease with heart failure; G89.18 Other acute postprocedural pain; I80.8 Phlebitis and thrombophlebitis of other sites; R91.1 Solitary pulmonary nodule; K21.00 Gastro-esophageal reflux disease with esophagitis, without bleeding; F32.A Depression, unspecified; F41.9 Anxiety disorder, unspecified; E78.5 Hyperlipidemia, unspecified; G47.33 Obstructive sleep apnea (adult) (pediatric); G25.81 Restless legs syndrome; F12.90 Cannabis use, unspecified, uncomplicated; Z79.01 Long term (current) use of anticoagulants; Z86.711 Personal history of pulmonary embolism; Z86.718 Personal history of other venous thrombosis and embolism; Z85.44 Personal history of malignant neoplasm of other female genital organs; Z90.710 Acquired absence of both cervix and uterus; Z95.5 Presence of coronary angioplasty implant and graft; Z96.659 Presence of unspecified artificial knee joint; Z66 Do not resuscitate; Z99.81 Dependence on supplemental oxygen
CPT/HCPCS: 36415; 36600; 43235; 45378; 51702; 71045; 71275; 74230; 80048; 80051; 80053; 80061; 81001; 82274; 82330; 82607; 82746; 82805; 83540; 83550; 83735; 83880; 84100; 84145; 84443; 84466; 84484; 85025; 86850; 86900; 86920; 87040; 87635; 92523; 92610; 92611; 93005; 93306; 94640; 94660; 94664; 96365; 96374; 96375; 97110; 97162; 97165; 97530; 97535; 99285; C9113; J0744; J1885; J1940; J2370; J2704; J3010; J3475; J3490; J7030; Q9967; S0030

== ENCOUNTER → 2021-12-04 15:20 | Outpatient (BNVA) | payer MEDICARE, OTHER, SELFPAY | PROVIDERS: PCP Nurse Practitioner Family; Visit Provider Orthopaedic Surgery | DX: Z48.89 Encounter for other specified surgical aftercare (principal) | CPT/HCPCS: 72100 ==

== ENCOUNTER 2021-12-17 10:32 | Outpatient (CLI) | payer MEDICARE, SELFPAY ==
--- NOTE | 2021-12-17 12:00 | CT_ITS ---
WS: [id number] CT pelvis TECHNIQUE: Noncontrast CT of the pelvis with coronal and sagittal reformatted images. CLINICAL INFORMATION: R10.2 - Pelvic and perineal pain COMPARISON: None. DLP: [id number] scans at [facility] use at least one of these dose optimization techniques: automated e xposure control; mA and/or kV adjustment per patient size (includes targeted exams where dose is matc hed to clinical indication); or iterative reconstruction. FINDINGS: Advanced degenerative arthritis RIGHT hip with complete loss of joint space and [id number] articula tion. Subchondral sclerosis involving the adjacent acetabulum and femoral head. Extensive subchondral cystic change. Mild degenerative narrowing LEFT hip. Prior postoperative changes L5-S1 with interbody fusion graft. Dorsal interconnecting rods extend off the [id number] cranially. Mild lucency along the RIGHT L5 pedicle screw. Bilateral sacroiliac scr ew fixation. Hardware otherwise appears unremarkable. Normal pubic rami. Laminectomy defects in the lower lumbar spine with postoperative fluid likely sero ma along the laminectomy defect. Sigmoid diverticulosis. No evidence of acute diverticulitis. CT/CT pelvis wo con [id number] IMPRESSION: 1. Advanced degenerative arthritis RIGHT hip with [id number] articulation. A ssociated subchondral sclerosis and extensive subchondral cystic change. 2. Prior postoperative changes partially visualized lumbosacral fusion. Pedicl e screw fixation L4-L5 with interbody fusion graft. Bilateral sacroiliac fixati on. Interconnecting rods extend cranially off the [id number]-er-wowb. 3. Slight lucency along the RIGHT L5 pedicle screw. 4. Dorsal laminectomy defects in the lower lumbar spine with postoperative flu id in the laminectomy defect likely seroma. 5. Sigmoid diverticulosis. No evidence of acute diverticulitis
== END 2021-12-17 10:33 | disposition home or self-care (01) ==
PROVIDERS: PCP Nurse Practitioner Family; Visit Provider Orthopaedic Surgery
DX: M16.11 Unilateral primary osteoarthritis, right hip (principal); K57.30 Diverticulosis of large intestine without perforation or abscess without bleeding
CPT/HCPCS: 72192

== ENCOUNTER 2022-04-11 16:25 | Inpatient (IN) | payer MEDICARE, SELFPAY ==
[2022-04-11] VITALS (10 sets, daily range): BP systolic 114–166; BP diastolic 35–77; PULSE 77–99; RESP 17–24; TEMP 36.6–37.5; O2SAT 93–100; BMI 28.3
--- NOTE | 2022-04-11 16:27 | ED_ITS ---
HPI - Chest Pain General: Chief Complaint: Chest Pain Stated Complaint: CHEST PAIN Time Seen by Provider: 04/11/22 16:26 History of Present Illness: Ms Woodruff is a 87-year-old lady with significant past medical history of hypertension, known CAD with history of MN, history of coronary artery stent who presents to the emergency department due to chest pain. Onset of symptoms was when she woke up this morning. She endorses for just noticing frontal headache which is not typical for her and subsequently developing pressure in the middle of her chest with radiation to the back and neck. Associated shortness of breath which is worse than baseline, she does use Trelegy at night, she has had nausea and one episode of vomiting. Overall intensity symptoms is moderate to severe. She did have some improvement with nitroglycerin administered by EMS. Denies frequent episodes of chest pain in the past. No other specific changes in health, exacerbating, or alleviating factors identified. Onset (ago): hour(s) Timing of current episode: increasing Prior episodes: Yes Onset: during rest Pain location: substernal Pain radiation: back and neck Severity: severe Quality: tightness and heaviness Associated symptoms: Reports dyspnea, nausea and vomiting Review of Systems General: Reports: 10 or more systems reviewed and unremarkable except in HPI and below Resp: Reports: dyspnea GI: Reports: nausea and vomiting PFSH ED PFSH: Medical History (Updated 04/14/22 @ 00:01 by ) Acute blood loss anemia (ABLA) Anemia Atrial fibrillation Chest pain Chronic back pain Congestive heart failure COPD (chronic obstructive pulmonary disease) Uses trilogy at night with 2 L. Typically not on oxygen during day. Coronary artery disease Depression Depression with anxiety DVT (deep venous thrombosis) Dysphagia Dyspnea or other respiratory complaints Fusion of spine History of cancer of vulva History of pulmonary embolism Hx of blood clots Hyperlipidemia Hypertension Lumbar radiculopathy Melanotic stools Obstructive sleep apnea Post-op pain Pulmonary embolism Restless leg syndrome Surgical History (Updated 04/14/22 @ 00:01 by ) H/O: hysterectomy History of back surgery History of coronary artery stent placement History of hip replacement History of knee replacement History of tonsillectomy Presence of vena cava filter Family History Other Cancer Chronic back pain Social History Smoking and tobacco status: never smoked Alcohol intake: current Alcohol intake frequency: few times a month History of recent travel: No Physical Exam Const: COMMON NORMALS: alert GENERAL APPEARANCE: cooperative, well develop ed and in distress (Visibly uncomfortable due to chest discomfort) HENMT: COMMON NORMALS: normocephalic and atraumatic HEAD & SCALP: normocephalic and atraumatic Eye: COMMON NORMALS: conjunctivae normal CONJUNCTIVA: Yes conjunctivae normal SCLERA: sclerae normal Neck/C-Spine: COMMON NORMALS: supple GENERAL: Yes trachea midline Resp: COMMON NORMALS: normal respiratory effort and clear to auscultation bilaterally EFFORT & INSPECTION: Yes able to speak in complete sentences AUSCULTATION: clear to auscultation bilaterally Cardio: COMMON NORMALS: regular rate and regular rhythm RATE: regular rate RHYTHM: regular rhythm GI: COMMON NORMALS: Soft to palpation PALPATION: Yes Soft to palpation and No Tenderness to palpation present (GI) PERCUSSION: normal to percussion Extremity: GENERAL: Yes normal exam except as noted and No edema Neuro: COMMON NORMALS: moves all extremities SENSORIUM/ORIENTATION: Yes alert and No Orientation impaired Psych: COMMON NORMALS: mental status grossly normal and Normal thought process present THOUGHT PROCESS: Normal thought process present Course ED course: - Patient was seen and evaluated by me at bedside - Patient placed on cardiac monitors, IV access obtained - Initial evaluation notable for exam as above. - Labs and xrays personally interpreted by me. 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 Fentanyl given for pain - Labs notable for leukocytosis, normocytic anemia. Metabolic panel without acute electrolyte derangement to explain symptoms. Delta troponin is 3.99. BNP mildly elevated. Urinalysis with squamous epithelial contamination - Imaging notable for chest x-ray with cardiomegaly and bibasilar atelectasis. Patient appears to have several enlarged airway nodules concerning for metastatic disease. Overall no other acute process to explain patient's symptoms. I did discuss the lung masses with the patient, she does not recall being told from previous CT unfortunately that she had a mass. - Upon serial reexamination after treatment the patient was mildly improved transiently though continues to have chest discomfort - Based on patient history, evaluation, and testing as interpreted the most likely cause of the patient's condition is chest pain with elevated heart score - The results of ED evaluation were discussed with the patient including plan for admission due to requirement for level of care not available if discharged to prevent significant worsening/deterioration. - Admitting service was contacted and Dr Morgan with the hospitalist service agreed to admit the patient - Patient was admitted without further deterioration or significant events. Note: Click bubbles or prepopulated little in note writing are used for assistance with data collection and billing and are inherently more limited than narrative and other text portions of this note. Please use narrative for additional clinic al history and defer to narrative/free test for any case of contradictory information. If information appears in only free text or click bubble it should be considered present or absent as reported. Please contact note scientific technical writer for clarifications of clinical information or contradictory information. MDM is a brief summary, contradictory or erroneous seeming information should be clarified and full note should be reviewed. Vital Signs: Vital signs: Vital Signs Temperature 98.0 F 04/13/22 12:00 Pulse Rate 84 04/13/22 12:00 Respiratory Rate 18 04/13/22 12:00 Blood Pressure 93/49 04/13/22 12:00 Pulse Oximetry 90 04/13/22 12:11 MDM - Chest Pain Medical Decision Making 87-year-old lady presenting to the emergency department due to chest pain. No clear etiology identified on ED evaluation. Patient does have suspected pulmonary metastases of unknown primary source. Patient is not low risk by hear t score and therefore admitted for further evaluation. Medical Records I reviewed the patient's medical records. Lab Data I reviewed the patient's lab results. : 04/13/22 02:37 04/13/22 02:37 Radiology Impressions Chest X-Ray 04/11/22 16:40 IMPRESSION: 1. Cardiomegaly. 2. Bibasilar atelectasis versus infiltrate. 3. Emphysematous changes. Chest/Abdomen/Pelvis CT 04/11/22 18:13 IMPRESSION: 1. Several bilateral somewhat focal nodular areas of airspace opacification measuring up to 14 mm in left lower lobe concerning for metastatic disease. 2. Small bilateral right greater left pleural effusions. 3. Cardiomegaly. 4. Coronary artery atherosclerotic calcifications. 5. Scattered prominent mediastinal lymph nodes measuring up to 14 mm, nonspecific. 6. Surgical hardware seen in the spine. 7. Severe osteoarthritis of the shoulders bilaterally. 8. Right middle and lingular lobe atelectasis versus infiltrate. IMPRESSION: 1. Negative for acute inflammatory process in the abdomen or pelvis. 2. Inferior vena cava filter. 3. Diverticulosis without diverticulitis. 4. Surgical hardware seen in the spine. 5. Right hip arthroplasty changes with some probable chronic heterotopic calcification seen along the lateral aspect of the hip. 6. Stable left adrenal 2.5 cm nodule, dating back to 01/31/2016, stability suggests a benign etiology COMMENTS: For patients with an IVC filter, recommend assessment for a management plan for the patient's IVC filter. If there is no established management plan, recommend referral to an interventional clinician on a nonemergent basis for evaluation. Venous Duplex 04/12/22 00:24 IMPRESSION: No evidence of deep vein thrombosis. Chest CTA 04/12/22 11:41 IMPRESSION: 1. Mild bilateral geographic ground-glass opacities most consistent with mild bilateral COVID-19 pneumonia versus other pneumonia. 2. Mild bilateral pleural fluid collections. 3. No pulmonary embolus or aortic dissection. Laboratory Results WBC 15.7 10^3/uL (4.0-10.0) H 04/11/22 17:12 RBC 3.38 10^6/uL (4.1-5.3) L 04/11/22 17:12 Hgb 9.0 g/dL (11.5-15.3) L 04/11/22 17:12 Hct 30.8 % (37.0-47.0) L 04/11/22 17:12 MCV 91.1 fl (81-99) 04/11/22 17:12 MCH 26.6 pg (28.0-34.0) L 04/11/22 17:12 MCHC 29.2 g/dL (30.0-36.0) L 04/11/22 17:12 RDW 15.8 % (12.1-15.1) H 04/11/22 17:12 Plt Count 273 10^3/cmm (130-400) 04/11/22 17:12 MPV 9.8 fL (7.4-10.4) 04/11/22 17:12 Neut % (Auto) 80.7 % 04/11/22 17:12 Lymph % (Auto) 11.5 % 04/11/22 17:12 [place] % (Auto) 7.1 % 04/11/22 17:12 Eos % (Auto) 0.1 % 04/11/22 17:12 Baso % (Auto) 0.2 % 04/11/22 17:12 Neut # (Auto) 12.66 10^3/uL (1.8-7.7) H 04/11/22 17:12 Lymph # (Auto) 1.8 10^3/uL (0.8-4.8) 04/11/22 17:12 [place] # (Auto) 1.1 10^3/uL (0.2-0.9) H 04/11/22 17:12 Eos # (Auto) 0.0 10^3/uL (0.0-0.8) 04/11/22 17:12 Baso # (Auto) 0.0 10^3/uL (0.0-0.1) 04/11/22 17:12 Nucleated RBC % (auto) 0 % 04/11/22 17:12 Nucleated RBCs # 0.0 /100WBC 04/11/22 17:12 PT 20.20 SECONDS (12.1-14.9) H 04/11/22 17:12 INR 1.69 (0.8-1.2) H 04/11/22 17:12 APTT 33.4 SECONDS (23.9-36.7) 04/11/22 17:12 D-Dimer 3.62 ug/mIFEU (0-0.59) H 04/11/22 17:12 Sodium 137 mmol/L (136-145) 04/11/22 17:12 Potassium 4.4 mmol/L (3.5-5.1) 04/11/22 17:12 Chloride 98 mmol/L (98-107) 04/11/22 17:12 Carbon Dioxide 27 mmol/L (22-29) 04/11/22 17:12 Anion Gap 16.4 (5-19) 04/11/22 17:12 BUN 11 mg/dL (8-23) 04/11/22 17:12 Creatinine 0.6 mg/dL (0.5-0.9) 04/11/22 17:12 GFR Calculation Not Reportable 04/11/22 17:12 Glucose 125 mg/dL (65-115) H 04/11/22 17:12 Calculated Osmolality 285 mOsm/kg (285-295) 04/11/22 17:12 Calcium 8.6 mg/dL (8.5-10.5) 04/11/22 17:12 Total Bilirubin 0.4 mg/dL (0.15-1.2) 04/11/22 17:12 AST 18 U/L (0-32) 04/11/22 17:12 ALT 8 U/L (0-33) 04/11/22 17:12 Alkaline Phosphatase 242 IU/L (35-105) H 04/11/22 17:12 Troponin T Baseline 46 ng/L (0-10) H 04/11/22 17:12 Troponin T 120 Minute 49.99 ng/L (0-10) H 04/11/22 19:20 Delta Troponin T 3.99 ABS# (0-10) 04/11/22 19:20 NT-Pro-B Natriuret Pep 1440 pg/mL (0-450) H 04/11/22 17:12 Total Protein 6.2 g/dL (6.6-8.7) L 04/11/22 17:12 Albumin 3.5 g/dL (3.5-5.2) 04/11/22 17:12 Globulin 2.7 g/dL (1.3-4.6) 04/11/22 17:12 Lipase 16 U/L (13-60) 04/11/22 17:12 Discharge Plan Discharge Patient Disposition: Placed in Observation Admit Provider: Cosmo Morgan Clinical Impression: Chest pain Discharge Diet: Cardiac Discharge Activity: Increase activity as tolerated and Oxygen as instructed Coding Level of Care Code ED [facility] Hand Dredge Or Barge for Chg Fwd Exam Comprehensive
--- NOTE | 2022-04-11 16:40 | XRR_ITS ---
PROCEDURE INFORMATION: Exam: XR Chest Exam date and time: 04/11/2022 4:48 PM Age: 87 years old Clinical indication: Pain; Left-sided; Prior surgery; Surgery type: Stents; Additional info: Chest pain TECHNIQUE: Imaging protocol: XR of the chest. Views: 1 view. COMPARISON: CR XR chest 1V portable [id number] 10/04/2021 9:57 AM FINDINGS: Lungs: Bibasilar atelectasis versus infiltrate. Emphysematous changes. Pleural spaces: Unremarkable. No pleural effusion. No pneumothorax. Heart/Mediastinum: Cardiomegaly. Bones/joints: Unremarkable. XR/XR chest 1V portable [id number] IMPRESSION: 1. Cardiomegaly. 2. Bibasilar atelectasis versus infiltrate. 3. Emphysematous changes.
--- NOTE | 2022-04-11 16:40 | ECG_ITS ---
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 Measurements Intervals [place] Rate: 92 P: 90 ME: 149 QRS: 63 QRSD: 89 T: 73 QT: 346 QTc: 430 Interpretive Statements SINUS RHYTHM WITH OCCASIONAL SUPRAVENTRICULAR PREMATURE COMPLEXES Compared to ECG 10/03/2021 18:26:27 Atrial fibrillation no longer present T-wave abnormality no longer present Electronically Signed On 04-12-2022 9:20:47 CDT by Jon Moreland M.D. [id number] f
[2022-04-11 17:20] LABS: Basophils % 0.2 %; Eosinophils % 0.1 %; Hematocrit 30.8 % (37.0-47.0); Lymphocytes # 1.8 10^3/uL (0.8-4.8); Lymphocytes % 11.5 %; Mean Corpuscular HGB Conc 29.2 g/dL (30.0-36.0); Mean Corpuscular Hemoglobin 26.6 pg (28.0-34.0); Mean Corpuscular Volume 91.1 fl (81-99); Mean Platelet Volume 9.8 fL (7.4-10.4); Monocytes # 1.1 10^3/uL (0.2-0.9); Monocytes % 7.1 %; Neutrophils # 12.66 10^3/uL (1.8-7.7); Neutrophils % 80.7 %; Nucleated Red Blood Cells % 0 %; Platelet Count 273 10^3/cmm (130-400); Red Blood Count 3.38 10^6/uL (4.1-5.3); Red Cell Distribution Width 15.8 % (12.1-15.1); White Blood Count 15.7 10^3/uL (4.0-10.0)
[2022-04-11] MEDS: fentaNYL 50 mcg/mL INJ 2mL IVP ×2 (17:25→21:05)
[2022-04-11 17:37] LABS: INR 1.69 (0.8-1.2); Partial Thromboplastin Time 33.4 SECONDS (23.9-36.7)
[2022-04-11 17:46] LABS: Troponin(5th) Baseline 46 ng/L (0-10)
[2022-04-11 17:51] LABS: Alanine Aminotransferase 8 U/L (0-33); Albumin Level 3.5 g/dL (3.5-5.2); Alkaline Phosphatase 242 IU/L (35-105); Anion Gap 16.4 (5-19); Aspartate Amino Transferase 18 U/L (0-32); Blood Urea Nitrogen 11 mg/dL (8-23); Calcium 8.6 mg/dL (8.5-10.5); Carbon Dioxide 27 mmol/L (22-29); Chloride 98 mmol/L (98-107); Globulin 2.7 g/dL (1.3-4.6); Glucose 125 mg/dL (65-115); Lipase 16 U/L (13-60); NT Pro B Type Natriuretic Pept 1440 pg/mL (0-450); Osmolality Calculated 285 mOsm/kg (285-295); Potassium 4.4 mmol/L (3.5-5.1); Sodium 137 mmol/L (136-145); Total Bilirubin 0.4 mg/dL (0.15-1.2); Total Protein 6.2 g/dL (6.6-8.7)
--- NOTE | 2022-04-11 18:13 | CTR_ITS ---
PROCEDURE INFORMATION: Exam: CT Chest Without Contrast; Diagnostic Exam date and time: 04/11/2022 6:45 PM Age: 87 years old Clinical indication: Abdominal pain; Epigastric; Chest pressure; Prior surgery; Surgery date: 6+ months; Surgery type: Hyst, back, RT hip; Additional info: Chest pain, epigastric pain TECHNIQUE: Imaging protocol: Diagnostic computed tomography of the chest without contrast. Radiation optimization: All CT scans at this facility use at least one of these dose optimization techniques: automated exposure control; mA and/or kV adjustment per patient size (includes targeted exams where dose is matched to clinical indication); or iterative reconstruction. COMPARISON: CT angio chest PE protcl [id number] 10/02/2021 12:23 PM RADIATION DOSE METRICS: Total DLP (mGy-cm): 1485.97 FINDINGS: Lungs: Several bilateral somewhat focal nodular areas of airspace opacification measuring up to 14 mm in left lower lobe concerning for metastatic disease. Right middle and lingular lobe atelectasis versus infiltrate. Pleural spaces: Small bilateral right greater left pleural effusions. Heart: Cardiomegaly. Coronary artery atherosclerotic calcifications. Lymph nodes: Scattered prominent mediastinal lymph nodes measuring up to 14 mm, nonspecific. Vasculature: Unremarkable. No aortic aneurysm. Bones/joints: Surgical hardware seen in the spine. Severe osteoarthritis of the shoulders bilaterally. Soft tissues: Unremarkable. PROCEDURE INFORMATION: Exam: CT Abdomen And Pelvis Without Contrast Exam date and time: 04/11/2022 6:45 PM Age: 87 years old Clinical indication: Abdominal pain; Epigastric; Chest pressure; Prior surgery; Surgery date: 6+ months; Surgery type: Hyst, back, RT hip; Additional info: Chest pain, epigastric pain TECHNIQUE: Imaging protocol: Computed tomography of the abdomen and pelvis without contrast. Radiation optimization: All CT scans at this facility use at least one of these dose optimization techniques: automated exposure control; mA and/or kV adjustment per patient size (includes targeted exams where dose is matched to clinical indication); or iterative reconstruction. COMPARISON: CT pelvis wo con [id number] 12/17/2021 11:09 AM RADIATION DOSE METRICS: Total DLP (mGy-cm): 1485.97 FINDINGS: Liver: Normal. No mass. Gallbladder and bile ducts: Normal. No calcified stones. No ductal dilation. Pancreas: Normal. No ductal dilation. Spleen: Normal. No splenomegaly. Adrenal glands: Stable left adrenal 2.5 cm nodule, dating back to 01/31/2016, stability suggests a benign etiology Kidneys and ureters: Normal. No hydronephrosis. Stomach and bowel: Diverticulosis without diverticulitis. Appendix: No evidence of appendicitis. Intraperitoneal space: Unremarkable. No free air. No significant fluid collection. Vasculature: Inferior vena cava filter. Lymph nodes: Unremarkable. No enlarged lymph nodes. Urinary bladder: Unremarkable as visualized. Reproductive: Unremarkable as visualized. Bones/joints: Surgical hardware seen in the spine. Right hip arthroplasty changes with some probable chronic heterotopic calcification seen along the lateral aspect of the hip. Soft tissues: Unremarkable. CT/[place] [id number] IMPRESSION: 1. Several bilateral somewhat focal nodular areas of airspace opacification measuring up to 14 mm in left lower lobe concerning for metastatic disease. 2. Small bilateral right greater left pleural effusions. 3. Cardiomegaly. 4. Coronary artery atherosclerotic calcifications. 5. Scattered prominent mediastinal lymph nodes measuring up to 14 mm, nonspecific. 6. Surgical hardware seen in the spine. 7. Severe osteoarthritis of the shoulders bilaterally. 8. Right middle and lingular lobe atelectasis versus infiltrate. IMPRESSION: 1. Negative for acute inflammatory process in the abdomen or pelvis. 2. Inferior vena cava filter. 3. Diverticulosis without diverticulitis. 4. Surgical hardware seen in the spine. 5. Right hip arthroplasty changes with some probable chronic heterotopic calcification seen along the lateral aspect of the hip. 6. Stable left adrenal 2.5 cm nodule, dating back to 01/31/2016, stability suggests a benign etiology COMMENTS: For patients with an IVC filter, recommend assessment for a management plan for the patient's IVC filter. If there is no established management plan, recommend referral to an interventional clinician on a nonemergent basis for evaluation.
--- NOTE | 2022-04-11 18:40 | ECG_ITS ---
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 Measurements Intervals [place] Rate: 85 P: ME: QRS: 70 QRSD: 92 T: 78 QT: 371 QTc: 444 Interpretive Statements Sinus rhythm with PACs ABNORMAL RHYTHM ECG Compared to ECG 04/11/2022 16:31:06 No change Electronically Signed On 04-12-2022 9:27:07 CDT by Jon Moreland M.D. [email or web address] health systemShenzhou Shang[employer] Technologykettering health daytonTHE EMP[employer]/store/[id number]
[2022-04-11 19:55] LABS: Troponin 5 2HR 49.99 ng/L (0-10); Troponin 5 2HR Delta 3.99 ABS# (0-10)
[2022-04-11 21:31] LABS: D Dimer 3.62 ug/mIFEU (0-0.59)
--- NOTE | 2022-04-11 21:37 | P.HP_ITS ---
Providers/Chief Complaint Primary Care Provider: June Merchant Chief Complaint: CHEST PAIN History of Present Illness Maria Teresa Woodruff is a 87 year old female with a past medical history of atrial fibrillation on Xarelto, history of acute anemia, CAD status post stenting x1, history of diastolic CHF, history of pleural effusions, hypertension, hyperlipidemia, history of chronic hypoxic respiratory failure, on home AVAPS, history of recent back surgery, strip pulmonary embolism, history of DVT, history of IVC filter placement due to anemia, history of KIMBERLY, who is bedridden after her back surgery and hip surgery who presents [facility] due to chest pain. Patient tells me that she has been having chest pain for some time, but this morning she woke up with severe substernal chest pain, like something sitting on her chest, she tells me that her chest pain is becoming much more severe, much more frequent. Associate with shortness of breath, no lightheadedness, dizziness, no diaphoresis. No cough, no hemoptysis Review of Systems Const: Denies: fever(s) Eyes: Denies: change in vision ENMT: Denies: nasal congestion Resp: Denies: productive cough, non-productive cough or wheezing GI: Denies: abdominal pain, nausea or vomiting : Denies: dysuria Musc: Denies: neck pain or back pain Skin/Breast: Denies: rash Neuro: Denies: dizziness Medications/Allergies Home Medications Medication Instructions Recorded Confirmed Last Taken Type potassium chloride 10 mEq 10 meq PO BID 01/14/21 01/13/22 10/02/21 History capsule,extended release rivaroxaban 20 mg tablet (Xarelto) 20 mg PO DAILY #90 tab 01/14/21 01/13/22 Rx ropinirole 4 mg tablet 4 mg PO BEDTIME tab 01/14/21 01/13/22 10/01/21 History venlafaxine 150 mg tablet,extended 150 mg PO DAILY 01/14/21 01/13/22 10/02/21 History release 24 hr ergocalciferol (vitamin D2) 1,250 1,250 mcg PO Q7D 05/21/21 01/13/22 09/28/21 History mcg (50,000 unit) capsule clobetasol 0.05 % topical gel 1 applic TOPICAL DAILY 09/09/21 01/13/22 09/27/21 History losartan 25 mg tablet 25 mg PO DAILY 09/09/21 01/13/22 10/02/21 History pregabalin 100 mg capsule (Lyrica) 100 mg PO BEDTIME 10/02/21 01/13/22 10/01/21 History diltiazem HCl 120 mg 120 mg PO DAILY #60 tab 10/08/21 01/13/22 Unknown Rx tablet,extended release 24 hr (Cardizem LA) metoprolol tartrate 25 mg tablet 25 mg PO BID #60 tab 10/08/21 01/13/22 10/02/21 Rx pantoprazole 20 mg tablet,delayed 20 mg PO DAILY #20 tab 10/08/21 01/13/22 Unknown Rx release (Protonix) diazepam 5 mg tablet (Valium) 5 mg PO BID PRN 15 Days #30 tab 10/14/21 01/13/22 Unknown Rx hydrocodone 5 mg-acetaminophen 325 1 - 2 tab PO .Q4-6H PRN 7 Days #40 11/12/21 01/13/22 Unknown Rx mg tablet tab Allergies Allergy/AdvReac Type Severity Reaction Status Date / Time amoxicillin Allergy rash Verified 01/13/22 14:17 epinephrine Allergy Unknown Verified 01/13/22 14:17 hydrochlorothiazide Allergy unknown Verified 01/13/22 14:17 Iodinated Contrast Media Allergy Unknown Verified 01/13/22 14:17 morphine Allergy nausea, Verified 01/13/22 14:17 hyper Penicillins Allergy rash Verified 01/13/22 14:17 Tetanus Vaccines and Toxoid Allergy unk Verified 01/13/22 14:17 PFSH Acute PFSH: Medical History Acute blood loss anemia (ABLA) Atrial fibrillation Chest pain Chronic back pain Congestive heart failure COPD (chronic obstructive pulmonary disease) Uses trilogy at night with 2 L. Typically not on oxygen during day. Coronary artery disease Depression Depression with anxiety DVT (deep venous thrombosis) Dysphagia Dyspnea or other respiratory complaints Fusion of spine History of cancer of vulva History of pulmonary embolism Hx of blood clots Hyperlipidemia Hypertension Lumbar radiculopathy Melanotic stools Obstructive sleep apnea Post-op pain Pulmonary embolism Restless leg syndrome Surgical History H/O: hysterectomy History of back surgery History of coronary artery stent placement History of knee replacement History of tonsillectomy Presence of vena cava filter Family History Other Cancer Chronic back pain Social History Smoking and tobacco status: never smoked Alcohol intake: current Alcohol intake frequency: few times a month History of recent travel: No Vitals/I&O/Wt Last Vital Signs Temp 99.5 F 04/11/22 16:32 Pulse 83 04/11/22 19:26 Resp 22 H 04/11/22 21:05 BP 114/35 04/11/22 19:26 Pulse Ox 100 04/11/22 19:26 Weight last 48 hrs Weight 74.752 kg Physical Exam Const: COMMON NORMALS: no acute distress and patient oriented x3 HENMT: COMMON NORMALS: normocephalic HEAD & SCALP: normocephalic Eye: COMMON NORMALS: Equal, round and reactive pupils present and EOMs intact bilaterally Neck/C-Spine: COMMON NORMALS: no JVD Resp: COMMON NORMALS: normal respiratory effort, No retractions, No use of accessory muscles and clear to auscultation bilaterally AUSCULTATION: clear to auscultation bilaterally Cardio: COMMON NORMALS: no JVD, regular rate, regular rhythm, S1 normal heart sound present and S2 normal heart sound present RATE: regular rate RHYTHM: regular rhythm HEART SOUNDS: S1 normal heart sound present and S2 normal heart sound present GI: COMMON NORMALS: Normal to inspection, nondistended, normoactive bowel sounds present, Soft to palpation, non-tender, No hepatosplenomegaly present, no masses and no bruits PALPATION: Yes Soft to palpation and Yes No hepatosplenomegaly present Extremity: COMMON NORMALS: capillary refill normal, no clubbing, cyanosis or edema, no calf tenderness and no pedal edema Neuro: COMMON NORMALS: patient oriented x3, CN's II-XII intact bilaterally, moves all extremities and no focal motor deficits Psych: COMMON NORMALS: mental status grossly normal Data : 04/11/22 17:12 04/11/22 17:12 A&P Assessment and plan (1) Chest pain: Status: Acute (2) Anemia: Status: Acute Plan Chest pain Serial serial EKGs, serial troponins telemetry monitoring 1-Normal left ventricular cavity size. Normal left ventricular ?systolic function. No regional wall motion abnormalities. Left ?ventricular ejection fraction is estimated at 60 %.? In the ?presence of atrial fibrillation diastolic function cannot be ?assessed accurately. ?2-Moderately thickened mitral valve. Moderate mitral annular ?calcification. Moderate mitral valve regurgitation. ?3-Severe aortic valve calcification. Mild aortic valve stenosis, ?mean gradient 6.2 mmHg, SHARIF 2 cm squared. Trace aortic valve ?regurgitation. ?4-The right ventricle is normal in size and function.? Moderate ?pulmonary hypertension, RVSP 40.3 mmHg. ?5-There is no pericardial effusion. ?6-Right atrial pressure is around 5 mm of mercury. ?7-When compared to the prior echocardiogram dated February 01, 2016 ?there is mild aortic valve stenosis now -She tells me that she had a cardiac stress test within the last year, possibly at [facility], will get records -Consider stress versus angiography -Repeat cardiac echo -Continue aspirin, statin, telemetry monitoring, monitor for chest pain -DNR, she is okay with intubation -Xarelto for DVT prophylaxis -Protonix for GI prophylaxis CT of the chest showed several bilateral somewhat focal nodular areas of airspace opacification measuring up to 14 mm in left lower lobe concerning for metastatic disease. 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
--- NOTE | 2022-04-11 22:40 | ECG_ITS ---
[facility] Test Date: 2022-04-12 Pat Name: Maria Teresa Woodruff Department: Room: 259 Gender: Female Dispatch Specialist: : 1935 Requested By: Corey Cabrera Order Number: [id number] Mely MD: Jon Moreland M.D. Measurements Intervals Plush Rate: 103 P: MD: QRS: 44 QRSD: 95 T: 70 QT: 335 QTc: 439 Interpretive Statements Sinus tachycardia with PACs NONSPECIFIC ST & T-WAVE ABNORMALITY ABNORMAL RHYTHM ECG Compared to ECG 04/11/2022 18:53:27 T-wave abnormality now present Electronically Signed On 04-12-2022 9:28:18 CDT by Jon Moreland M.D. [id number]
[2022-04-11] MEDS: diazePAM 5 mg Tablet PO (23:36)
[2022-04-11] MEDS: HYDROcodone-acetaminophen 5-325 mg Tablet 1 TAB PO (23:36)
[2022-04-11] MEDS: FUROsemide 10 mg/mL SDV 4mL 40 MG IVP (23:37)
[2022-04-11] MEDS: pantoprazole 40 mg SDV IVP (23:37)
[2022-04-12] VITALS (15 sets, daily range): BP systolic 87–179; BP diastolic 32–88; PULSE 74–103; RESP 16–20; TEMP 36.6–37.9; O2SAT 90–98
--- NOTE | 2022-04-12 00:24 | USCV_ITS ---
Kacy Maria Teresa Age: 87 Gender: F : 1935 Exam Date: 04/12/2022 13:07 Ordering Phys: Cosmo Morgan MD Technologist: Brianna Torres [place] [facility] [place]: Chest Pain BP: 179 / 88 HR: 105 Rhythm: Sinus Technical Quality: Adequate MEASUREMENTS (Male / Female) Normal Values 2D ECHO LV Diastolic Diameter PLAX 3.8 cm 4.2 - 5.9 / 3.9 - 5.3 cm LV Systolic Diameter PLAX 3.0 cm LV Chamber Size 2.4 cm IVS Diastolic Thickness 1.0 cm 0.6 - 1.0 / 0.6 - 0.9 cm IVS Systolic Thickness 1.2 cm LVPW Diastolic Thickness 1.2 cm 0.6 - 1.0 / 0.6 - 0.9 cm LVPW Systolic Thickness 1.5 cm RV Chamber Size 3.1 cm LVOT Diameter 2.0 cm LV Ejection Fraction 2D Teich 45.8 % LV Ejection Fraction MOD 2C 62.0 % LV Ejection Fraction 2C AL 61.3 % LA Diameter 3.8 cm LA Width 2.7 cm LA Height 3.7 cm RA Width 4.3 cm RA Height 4.9 cm Aorta at Sinotubular Diameter 2.6 cm IVC Diameter 1.2 cm M-MODE Aortic Annulus Diameter 3.3 cm LA Ao Ratio MM 1.2 MV E Point Septal Separation 0.2 cm DOPPLER AV Peak Velocity 188.0 cm/s LVOT Peak Velocity 102.0 cm/s AV Area Cont Eq vti 1.7 cm squared AV Area Cont Eq pk 1.7 cm squared MV Area PHT 3.9 cm squared Mitral E to A Ratio 2.2 MV E' Velocity 65.5 cm/s Mitral E to MV E' Ratio 8.8 Mitral E to LV E' Lateral Ratio 9.3 Mitral E to LV E' Septal Ratio 8.5 TR Peak Velocity 344.5 cm/s TR Peak Gradient 47.5 mmHg TR Mean Velocity 253.0 cm/s TR Mean Gradient 28.8 mmHg TR Velocity Time Integral 108.2 cm TV Peak E Velocity 52.3 cm/s Right Atrial Pressure 15.0 mmHg Pulmonary Artery Systolic Pressu 62.5 mmHg PV Peak Velocity 111.0 cm/s RV Acceleration Time 0.1 s RV Ejection Time 0.3 s RV AcT/ET 0.5 FINDINGS Left Ventricle Normal left ventricular cavity size. Mild left ventricular hypertrophy. Normal left ventricular systolic function. Left ventricular ejection fraction is estimated at 65 %. Grade I/IV diastolic dysfunction (abnormal relaxation filling pattern), normal to mildly elevated filling pressures. Right Ventricle Normal right ventricular size and systolic function. Moderate pulmonary hypertension, RVSP 62.5 mmHg. Right Atrium The right atrium is normal in size. Left Atrium The left atrium is normal in size. Mitral Valve Structurally normal mitral valve without significant stenosis or prolapse. There is no mitral regurgitation. Aortic Valve Structurally normal trileaflet aortic valve. Mild aortic valve calcification. Aortic valve sclerosis without stenosis. Tricuspid Valve Structurally normal tricuspid valve. Mild tricuspid valve stenosis. Pulmonic Valve Pulmonic valve not well visualized. Pericardium Normal pericardium without effusion. Aorta Normal ascending aorta dimension. IVC The inferior vena cava pulmonary and hepatic veins appear normal. CONCLUSIONS Normal left ventricular cavity size. Mild left ventricular hypertrophy. Normal left ventricular systolic function. Left ventricular ejection fraction is estimated at 65 %. Grade I/IV diastolic dysfunction (abnormal relaxation filling pattern), normal to mildly elevated filling pressures. Normal right ventricular size and systolic function. Moderate pulmonary hypertension, RVSP 62.[address] Jon Moreland MD (Electronically Signed) Final Date: 13 April 2022 09:30 S
--- NOTE | 2022-04-12 00:24 | USR_ITS ---
PROCEDURE INFORMATION: Exam: US Duplex Lower Extremity Veins, Bilateral Exam date and time: 04/12/2022 1:27 AM Age: 87 years old Clinical indication: Abnormal findings; Abnormal lab test; Elevated d-dimer; Additional info: Dvt? , Patient in too much pain to attempt exam. Attempt again when pain is TECHNIQUE: Imaging protocol: Real-time Duplex ultrasound of the bilateral extremities with 2-D morin scale, color Doppler flow and spectral waveform analysis with image documentation. Complete exam focused on the bilateral lower extremity veins. COMPARISON: [place] [id number] 04/11/2022 6:45 PM FINDINGS: Right deep veins: Unremarkable. The common femoral, femoral, proximal profunda femoral and popliteal veins are patent without thrombus. Normal Doppler waveforms. Normal compressibility and/or augmentation response. Right superficial veins: Saphenofemoral junction is patent without thrombus. Left deep veins: Unremarkable. The common femoral, femoral, proximal profunda femoral and popliteal veins are patent without thrombus. Normal Doppler waveforms. Normal compressibility and/or augmentation response. Left superficial veins: Saphenofemoral junction is patent without thrombus. Soft tissues: Unremarkable. US/[place] [id number] IMPRESSION: No evidence of deep vein thrombosis.
[2022-04-12 00:49] LABS: Add Urine Culture? No; Add Urine Microscopic? YES; Bacteria Urine 4+ /hpf; Bilirubin Urine Neg (Negative); Blood Urine Trace (Negative); Glucose Urine UA Norm (Normal); Ketones Urine 1+ (Negative); Leukocyte Esterase Urine 2+ (Negative); Nitrate Urine Positive (Negative); Protein Urine Neg (Negative); RBC Urine 0-4 /hpf (0-2); Specific Gravity, Urine 1.015 (1.005-1.030); Squamous Epithelial Cell Urine 25-40 /hpf (0-5); Urine Appearance Hazy (CLEAR); Urine Color Yellow (Yellow); Urobilinogen Urine Norm (Negative); WBC Urine 40-55 /hpf (0-5); pH Urine 6 (5-7)
[2022-04-12] MEDS: levalbuterol 1.25 mg/3 mL Neb INHALATION (02:38)
[2022-04-12] MEDS: nitroglycerin 0.4 mg sublingual Tablet SUBLINGUAL (03:43)
[2022-04-12] MEDS: ALPRAZolam 0.5 mg Tablet PO (04:27)
[2022-04-12 05:41] LABS: Basophils % 0.2 %; Hematocrit 31.5 % (37.0-47.0); Hemoglobin 9.3 g/dL (11.5-15.3); Lymphocytes # 0.6 10^3/uL (0.8-4.8); Lymphocytes % 3.3 %; Mean Corpuscular HGB Conc 29.5 g/dL (30.0-36.0); Mean Corpuscular Hemoglobin 26.6 pg (28.0-34.0); Mean Platelet Volume 9.2 fL (7.4-10.4); Monocytes # 1.5 10^3/uL (0.2-0.9); Monocytes % 7.8 %; Neutrophils # 16.99 10^3/uL (1.8-7.7); Neutrophils % 88.1 %; Nucleated Red Blood Cells % 0 %; Platelet Count 242 10^3/cmm (130-400); White Blood Count 19.3 10^3/uL (4.0-10.0)
[2022-04-12 06:15] LABS: Alanine Aminotransferase 7 U/L (0-33); Albumin Level 3.6 g/dL (3.5-5.2); Alkaline Phosphatase 233 IU/L (35-105); Anion Gap 14.6 (5-19); Aspartate Amino Transferase 17 U/L (0-32); Blood Urea Nitrogen 11 mg/dL (8-23); Calcium 9.1 mg/dL (8.5-10.5); Carbon Dioxide 29 mmol/L (22-29); Chloride 94 mmol/L (98-107); Globulin 3.1 g/dL (1.3-4.6); Glucose 141 mg/dL (65-115); Magnesium 1.5 mg/dL (1.7-2.3); Osmolality Calculated 280 mOsm/kg (285-295); Phosphorus 3.1 mg/dL (2.5-4.5); Potassium 3.6 mmol/L (3.5-5.1); Sodium 134 mmol/L (136-145); Total Bilirubin 0.6 mg/dL (0.15-1.2); Total Protein 6.7 g/dL (6.6-8.7)
[2022-04-12 06:20] LABS: NT Pro B Type Natriuretic Pept 1093 pg/mL (0-450)
[2022-04-12] MEDS: ipratropium-albuterol 3 mL Neb INHALATION ×3 (07:27→19:36)
[2022-04-12] MEDS: metoprolol tartrate 25 mg Tablet PO ×2 (08:13→17:04)
[2022-04-12] MEDS: venlafaxine ER (24HR) 150 mg Capsule PO (08:13)
[2022-04-12] MEDS: aspirin 81 mg EC Tablet PO (08:13)
[2022-04-12] MEDS: rivaroxaban 10 mg Tablet 20 MG PO (08:13)
[2022-04-12] MEDS: losartan 50 mg Tablet 25 MG PO (08:13)
[2022-04-12] MEDS: dilTIAZem ER (24HR) 120 mg Capsule PO (08:13)
[2022-04-12] MEDS: pantoprazole 40 mg SDV IVP (10:33)
--- NOTE | 2022-04-12 11:41 | CTR_ITS ---
PROCEDURE INFORMATION: Exam: CTA Chest With Contrast Exam date and time: 04/12/2022 5:38 PM Age: 87 years old Clinical indication: Pain; Angina pectoris; Additional info: Chest pain, elevated dimer, high BP TECHNIQUE: Imaging protocol: Computed tomographic angiography of the chest with contrast. 3D rendering (Not supervised by radiologist): MIP and/or 3D reconstructed images were created by the technologist. Radiation optimization: All CT scans at this facility use at least one of these dose optimization techniques: automated exposure control; mA and/or kV adjustment per patient size (includes targeted exams where dose is matched to clinical indication); or iterative reconstruction. Contrast material: VISI; Contrast volume: 72 ml; Contrast route: INTRAVENOUS (IV); COMPARISON: CT angio chest PE protcl [id number] 10/02/2021 12:23 PM RADIATION DOSE METRICS: Total DLP (mGy-cm): 571.33 FINDINGS: Pulmonary arteries: No pulmonary embolus or aortic dissection. Aorta: Calcification of the thoracic aorta and/or great vessels consistent with atherosclerotic vessel disease. Lungs: Mild bilateral geographic ground-glass opacities most consistent with mild bilateral COVID-19 pneumonia versus other pneumonia. Pleural spaces: Mild bilateral pleural fluid collections. Heart: Unremarkable. No cardiomegaly. No pericardial effusion. Lymph nodes: Unremarkable. No enlarged lymph nodes. Spleen: Calcified splenic granulomas. Bones/joints: Unremarkable. No acute fracture. Soft tissues: Unremarkable. Other findings: Stable metallic postoperative changes over the thoracolumbar spine with metallic artifact. CT/CT angio chest PE protcl [id number] IMPRESSION: 1. Mild bilateral geographic ground-glass opacities most consistent with mild bilateral COVID-19 pneumonia versus other pneumonia. 2. Mild bilateral pleural fluid collections. 3. No pulmonary embolus or aortic dissection.
[2022-04-12 12:26] LABS: Procalcitonin 0.29 ng/mL (0-0.5)
[2022-04-12] MEDS: cefTRIAXone 1,000 MG in sodium chloride 0.9% (plus) 50 ML 100 MG IV (12:53)
[2022-04-12] MEDS: azithromycin 250 mg Tablet 500 MG PO (13:31)
--- NOTE | 2022-04-12 14:36 | P.PN_ITS ---
Subjective Subjective: Admitted overnight. H&P and labs appreciated. On examination today patient is extremely emotional. Crying during examination on and off. States he is fed up or being in hospital multiple times. Admitted last night with chest pressure. States he is better and would like to go home but still h aving occasional episodes of chest pressure on and off. Currently on 3 L oxygen supplementation. Occasional episode of dyspnea during exam. at bedside. Complains of occasional dysuria. Denies diarrhea. Denies chest pain, nausea, vomiting, headache. Chest pressure either last night associated with vomiting. Denies any fever at home. States she wants to go home so she can sleep properly. Vitals/I&O/Wt Last Vital Signs Temp 98.7 F 04/12/22 12:00 Pulse 89 04/12/22 14:00 Resp 18 04/12/22 12:00 BP 110/47 04/12/22 12:00 Pulse Ox 96 04/12/22 12:00 04/11/22 04/12/22 04/12/22 22:59 06:59 14:59 Intake Total 30 / 30 320 / 320 Output Total 800 / 800 Balance -770 / -770 320 / 320 Weight last 48 hrs Weight 74.707 kg Weight 74.752 kg Physical Exam Const: COMMON NORMALS: no acute distress and patient oriented x3 HENMT: COMMON NORMALS: normocephalic HEAD & SCALP: normocephalic Eye: COMMON NORMALS: Equal, round and reactive pupils present and EOMs intact bilaterally PUPIL: Yes Equal, round and reactive pupils present Neck/C-Spine: COMMON NORMALS: no JVD Resp: COMMON NORMALS: normal respiratory effort, No retractions, No use of accessory muscles and clear to auscultation bilaterally AUSCULTATION: clear to auscultation bilaterally Cardio: COMMON NORMALS: no JVD, regular rate, regular rhythm, S1 normal heart sound present and S2 normal heart sound present RATE: regular rate RHYTHM: regular rhythm HEART SOUNDS: S1 normal heart sound present and S2 normal heart sound present GI: COMMON NORMALS: Normal to inspection, nondistended, normoactive bowel sounds present, Soft to palpation, non-tender, No hepatosplenomegaly present, no masses and no bruits PALPATION: Yes Soft to palpation and Yes No hepatosplenomegaly present Extremity: COMMON NORMALS: capillary refill normal, no clubbing, cyanosis or edema, no calf tenderness and no pedal edema Neuro: COMMON NORMALS: patient oriented x3, CN's II-XII intact bilaterally, moves all extremities and no focal motor deficits Psych: COMMON NORMALS: mental status grossly normal Data : 04/12/22 05:25 04/12/22 05:25 A&P Assessment and plan (1) Leukocytosis: Status: Acute (2) UTI (urinary tract infection): Status: Acute (3) Chest pain: Status: Acute (4) Anemia: Status: Acute (5) Atrial fibrillation: Status: Acute (6) COPD (chronic obstructive pulmonary disease): Status: Acute (7) DVT (deep venous thrombosis): Status: Acute (8) Presence of vena cava filter: Status: Acute (9) Lung mass: Status: Acute (10) Depression: Status: Acute (11) Elevated d-dimer: Status: Acute Plan Chest pain: Troponin cycle negative. Repeat echocardiogram awaited. Last echocardiogram 2020 shows an EF of 60%, moderate MR, mild , RVSP of 41. Check A1c, lipid panel. Aspirin 81 mg daily. We will start statin as per lipid panel. CT chest done last night on admission shows several bilateral nodule in the lung field with 1 in the left lower lobe concerning for metastatic disease. Bilat eral right more than left pleural effusion. Scattered mediastinal lymph nodes. D-dimer elevated. Lower limb Dopplers negative for DVT. IVC filter in place. Given possibility of malignancy, elevated D-dimer with ongoing chest pressure, mild hypoxia more than baseline cannot rule out PE. Check CTA. Given leukocytosis with ongoing symptoms cannot rule out underlying pneumonia and consolidation being infectious. Check MRSA swab, flu swab, COVID-19 PCR, urine Legionella, bacterial antigen culture Start patient on IV ceftriaxone, oral azithromycin. Will DC antibiotics as per culture results. Leukocytosis: Cannot rule out UTI given UA. Ceftriaxone will cover for same. Check urine culture. 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 Continue with care at [facility]. Attestations Medical Necessity Statement*: Requires further hospitalization for management of possible UTI, pneumonia while further evaluation is done for chest pressure, elevated D-dimer and PE is ruled out Time Spent in Patient Care: Greater than 35 minutes Coding Level of Care Code Acute Collections Analyst for Chg Fwd Diagnoses Chest pain R07.9 Anemia D64.9 Atrial fibrillation I48.91 COPD (chronic obstructive pulmonary disease) J44.9 DVT (deep venous thrombosis) I82.409 Presence of vena cava filter Z95.828 Lung mass R91.8 Depression F32.A Leukocytosis D72.829 UTI (urinary tract infection) N39.0 Elevated d-dimer R79.89
[2022-04-12 15:54] LABS: Influenza A by IFA Negative (Negative); Influenza B by IFA Negative (Negative)
[2022-04-12] MEDS: diphenhydrAMINE 50 mg/mL SDV 1mL 25 MG IVP (17:01)
[2022-04-12 17:16] LABS: Adenovirus Not Detected (NOT DETECT); Chlamydia Pneumoniae Not Detected (NOT DETECT); Coronavirus 229E,HKU1,NL63,OC4 Not Detected (NOT DETECT); Human Metapneumovirus Not Detected (NOT DETECT); Human Rhinovirus/Enterovirus Not Detected (NOT DETECT); Influenza A Not Detected (NOT DETECT); Influenza A H1 Not Detected (NOT DETECT); Influenza A H1-2009 Not Detected (NOT DETECT); Influenza A H3 Not Detected (NOT DETECT); Influenza B Not Detected (NOT DETECT); Mycoplasma Pneumoniae Not Detected (NOT DETECT); Parainfluenza Virus Type 1 Not Detected (NOT DETECT); Parainfluenza Virus Type 2 Not Detected (NOT DETECT); Parainfluenza Virus Type 3 Not Detected (NOT DETECT); Parainfluenza Virus Type 4 Not Detected (NOT DETECT); Respiratory Syncytial Virus A Not Detected (NOT DETECT); Respiratory Syncytial Virus B Not Detected (NOT DETECT); SARS-COV-2 Not Detected (NOT DETECT)
[2022-04-12] MEDS: iodixanol 320 mg/mL 100mL Btl IV (17:42)
[2022-04-12] MEDS: atorvastatin 40 mg Tablet PO (20:44)
[2022-04-12] MEDS: pregabalin 100 mg Capsule PO (20:44)
[2022-04-12] MEDS: HYDROcodone-acetaminophen 5-325 mg Tablet 1 TAB PO (20:44)
[2022-04-12] MEDS: ropinirole 2 mg Tablet 4 MG PO (20:44)
[2022-04-12] MEDS: donepezil 5 MG Tablet 10 MG PO (20:45)
[2022-04-12] MEDS: sucralfate 1 gm Tablet PO (22:37)
[2022-04-13] VITALS (13 sets, daily range): BP systolic 93–127; BP diastolic 49–64; PULSE 80–89; RESP 16–18; TEMP 36.3–36.8; O2SAT 88–98
[2022-04-13] MEDS: pantoprazole 40 mg SDV IVP ×2 (00:19→09:54)
[2022-04-13] MEDS: ipratropium-albuterol 3 mL Neb INHALATION ×4 (00:24→11:23)
[2022-04-13 03:39] LABS: Basophils % 0.1 %; Hematocrit 27.5 % (37.0-47.0); Hemoglobin 8.2 g/dL (11.5-15.3); Lymphocytes # 0.5 10^3/uL (0.8-4.8); Lymphocytes % 3.1 %; Mean Corpuscular HGB Conc 29.8 g/dL (30.0-36.0); Mean Corpuscular Hemoglobin 26.9 pg (28.0-34.0); Mean Corpuscular Volume 90.2 fl (81-99); Mean Platelet Volume 9.8 fL (7.4-10.4); Monocytes # 0.3 10^3/uL (0.2-0.9); Monocytes % 1.8 %; Neutrophils # 16.69 10^3/uL (1.8-7.7); Neutrophils % 94.5 %; Nucleated Red Blood Cells % 0 %; Platelet Count 240 10^3/cmm (130-400); Red Blood Count 3.05 10^6/uL (4.1-5.3); Red Cell Distribution Width 15.9 % (12.1-15.1); White Blood Count 17.7 10^3/uL (4.0-10.0)
[2022-04-13 03:58] LABS: Alanine Aminotransferase 11 U/L (0-33); Albumin Level 3.3 g/dL (3.5-5.2); Alkaline Phosphatase 239 IU/L (35-105); Anion Gap 12.9 (5-19); Aspartate Amino Transferase 22 U/L (0-32); Blood Urea Nitrogen 21 mg/dL (8-23); Calcium 8.7 mg/dL (8.5-10.5); Carbon Dioxide 31 mmol/L (22-29); Chloride 91 mmol/L (98-107); Globulin 2.7 g/dL (1.3-4.6); Glucose 175 mg/dL (65-115); Magnesium 1.8 mg/dL (1.7-2.3); Osmolality Calculated 279 mOsm/kg (285-295); Phosphorus 4.3 mg/dL (2.5-4.5); Potassium 3.9 mmol/L (3.5-5.1); Sodium 131 mmol/L (136-145); Total Bilirubin 0.4 mg/dL (0.15-1.2)
[2022-04-13] MEDS: sucralfate 1 gm Tablet PO (05:51)
[2022-04-13] MEDS: aspirin 81 mg EC Tablet PO (08:24)
[2022-04-13] MEDS: azithromycin 250 mg Tablet 500 MG PO (08:24)
[2022-04-13] MEDS: losartan 50 mg Tablet PO (08:24)
[2022-04-13] MEDS: metoprolol tartrate 25 mg Tablet PO (08:24)
[2022-04-13] MEDS: rivaroxaban 10 mg Tablet 20 MG PO (08:24)
[2022-04-13] MEDS: venlafaxine ER (24HR) 150 mg Capsule PO (08:25)
[2022-04-13] MEDS: dilTIAZem ER (24HR) 120 mg Capsule PO (08:29)
--- NOTE | 2022-04-13 11:46 | PM.DCS ---
Discharge Providers Date of Admission: 04/11/22 21:09 Date of Discharge: April 13, 2022 Attending Provider at Admission: Cosmo Morgan MD Attending Provider at Discharge: Tin Salas Primary Care Provider: June Merchant Diagnoses at Discharge Discharge Diagnosis (1) Leukocytosis: Status: Acute (2) UTI (urinary tract infection): Status: Acute (3) Chest pain: Status: Acute (4) Anemia: Status: Acute (5) Atrial fibrillation: Status: Acute (6) COPD (chronic obstructive pulmonary disease): Status: Acute Permanent problem details: Uses trilogy at night with 2 L. Typically not on oxygen during day. 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 Troponin EKG series not indicative of acute myocardial infarction. She was also assessed by echocardiography which showed normal ejection fraction, grade 1 diastolic dysfunction, mild LVH. Possibly moderate pulmonary hypertension. With history of coronary disease, she was also started on aspirin, statin alongside Xarelto. She is continued on these medications, and is also referred for additional assessment by stress testing given intermittent symptoms of chest pressure. Currently she is free of any discomfort. She is given prescription for nitroglycerin, but also knows to seek medical attention in case of worsening or persistence of symptoms. Please follow-up regarding symptoms, stress test results, consider referral to cardiology for additional assessment. She has been needing 3 L nasal cannula oxygen support. At home usually on 2 L. Here treated with ceftriaxone azithromycin for possible pneumonia. CT chest abdomen pelvis obtained on presentation. IMPRESSION: 1. Several bilateral somewhat focal nodular areas of airspace opacification measuring up to 14 mm in left lower lobe concerning for metastatic disease. 2. Small bilateral right greater left pleural effusions. 3. Cardiomegaly. 4. Coronary artery atherosclerotic calcifications. 5. Scattered prominent mediastinal lymph nodes measuring up to 14 mm, nonspecific. 6. Surgical hardware seen in the spine. 7. Severe osteoarthritis of the shoulders bilaterally. 8. Right middle and lingular lobe atelectasis versus infiltrate. IMPRESSION: 1. Negative for acute inflammatory process in the abdomen or pelvis. 2. Inferior vena cava filter. 3. Diverticulosis without diverticulitis. 4. Surgical hardware seen in the spine. 5. Right hip arthroplasty changes with some probable chronic heterotopic calcification seen along the lateral aspect of the hip. 6. Stable left adrenal 2.5 cm nodule, dating back to 01/31/2016, stability suggests a benign etiology CT angiogram of the chest was followed up as well with finding of abnormal D-dimer, 2.62. CTA chest IMPRESSION: 1. Mild bilateral geographic ground-glass opacities most consistent with mild bilateral COVID-19 pneumonia versus other pneumonia. 2. Mild bilateral pleural fluid collections. 3. No pulmonary embolus or aortic dissection. Lower extremity venous duplex negative for DVT. COVID-19 PCR was negative. Antibiotic coverage provided also due to possible urinary tract infection, with urinalysis with 40-55 WBC, positive nitrate, but also 25-40 squamous epithelial cells. Urine cultures were sent and pending. Today she is feeling much better. Denies any complaints. Would like to return home and will follow-up on the outpatient side. Physical Exam Narrative: at bedside Const: COMMON NORMALS: alert GENERAL APPEARANCE: cooperative ORIENTATION/CONSCIOUSNESS: Yes awake HENMT: COMMON NORMALS: normocephalic, EAC's normal, Normal external nose present and moist oral mucous membranes HEAD & SCALP: normocephalic NOSE: Normal external nose present EXTERNAL AUDITORY CANAL: EAC's normal Neck/C-Spine: COMMON NORMALS: no meningeal signs Chest: CHEST: Yes Symmetrical chest wall rise Resp: COMMON NORMALS: clear to auscultation bilaterally AUSCULTATION: clear to auscultation bilaterally Cardio: COMMON NORMALS: regular rate, regular rhythm and No murmurs present (Cardio) RATE: regular rate RHYTHM: regular rhythm GI: COMMON NORMALS: Normal to inspection, nondistended, normoactive bowel sounds present, Soft to palpation and non-tender PALPATION: Yes Soft to palpation Extremity: COMMON NORMALS: no pedal edema Neuro: COMMON NORMALS: moves all extremities SENSORIUM/ORIENTATION: Yes alert MENINGEAL SIGNS: Yes no meningeal signs Psych: COMMON NORMALS: mental status grossly normal Skin: COMMON NORMALS: no wounds RASHES: no rashes Discharge Data Studies Completed and Pending Completed Studies During Hospitalization Category Date Time Status CT chest abdomen pelvis [[place] [id number] Cat Scan 04/11/22 18:13 Completed ] Stat CTA chest [CT angio chest PE protcl [id number]] Routine Cat Scan 04/12/22 11:41 Completed XR chest 1V portable [id number] Stat Exams 04/11/22 16:40 [place] [id number] Urgent Ultrasound 04/12/22 00:24 Completed CV. echo complete* [id number] Routine Ultrasound 04/12/22 00:24 Completed Pending at discharge Category Date Time Status Blood Culture Stat Lab 04/12/22 19:00 Results Complete Blood Count w/Auto AM LABS Lab 04/14/22 04:00 Ordered Comprehensive Metabolic Panel AM LABS Lab 04/14/22 04:00 Ordered MRSA by PCR Routine Lab 04/12/22 14:44 Received Magnesium AM LABS Lab 04/14/22 04:00 Ordered Phosphorus AM LABS Lab 04/14/22 04:00 Ordered Sputum Culture and Gram Stain Stat Lab 04/12/22 11:39 Uncollected Urine Culture Stat Lab 04/12/22 23:20 Received Radiology Impressions Chest X-Ray 04/11/22 16:40 IMPRESSION: 1. Cardiomegaly. 2. Bibasilar atelectasis versus infiltrate. 3. Emphysematous changes. Chest/Abdomen/Pelvis CT 04/11/22 18:13 IMPRESSION: 1. Several bilateral somewhat focal nodular areas of airspace opacification measuring up to 14 mm in left lower lobe concerning for metastatic disease. 2. Small bilateral right greater left pleural effusions. 3. Cardiomegaly. 4. Coronary artery atherosclerotic calcifications. 5. Scattered prominent mediastinal lymph nodes measuring up to 14 mm, nonspecific. 6. Surgical hardware seen in the spine. 7. Severe osteoarthritis of the shoulders bilaterally. 8. Right middle and lingular lobe atelectasis versus infiltrate. IMPRESSION: 1. Negative for acute inflammatory process in the abdomen or pelvis. 2. Inferior vena cava filter. 3. Diverticulosis without diverticulitis. 4. Surgical hardware seen in the spine. 5. Right hip arthroplasty changes with some probable chronic heterotopic calcification seen along the lateral aspect of the hip. 6. Stable left adrenal 2.5 cm nodule, dating back to 01/31/2016, stability suggests a benign etiology COMMENTS: For patients with an IVC filter, recommend assessment for a management plan for the patient's IVC filter. If there is no established management plan, recommend referral to an interventional clinician on a nonemergent basis for evaluation. Venous Duplex 04/12/22 00:24 IMPRESSION: No evidence of deep vein thrombosis. Chest CTA 04/12/22 11:41 IMPRESSION: 1. Mild bilateral geographic ground-glass opacities most consistent with mild bilateral COVID-19 pneumonia versus other pneumonia. 2. Mild bilateral pleural fluid collections. 3. No pulmonary embolus or aortic dissection. Laboratory Results WBC 17.7 10^3/uL (4.0-10.0) H 04/13/22 02:37 RBC 3.05 10^6/uL (4.1-5.3) L 04/13/22 02:37 Hgb 8.2 g/dL (11.5-15.3) L 04/13/22 02:37 Hct 27.5 % (37.0-47.0) L 04/13/22 02:37 MCV 90.2 fl (81-99) 04/13/22 02:37 MCH 26.9 pg (28.0-34.0) L 04/13/22 02:37 MCHC 29.8 g/dL (30.0-36.0) L 04/13/22 02:37 RDW 15.9 % (12.1-15.1) H 04/13/22 02:37 Plt Count 240 10^3/cmm (130-400) 04/13/22 02:37 MPV 9.8 fL (7.4-10.4) 04/13/22 02:37 Neut % (Auto) 94.5 % 04/13/22 02:37 Lymph % (Auto) 3.1 % 04/13/22 02:37 [place] % (Auto) 1.8 % 04/13/22 02:37 Eos % (Auto) 0.0 % 04/13/22 02:37 Baso % (Auto) 0.1 % 04/13/22 02:37 Neut # (Auto) 16.69 10^3/uL (1.8-7.7) H 04/13/22 02:37 Lymph # (Auto) 0.5 10^3/uL (0.8-4.8) L 04/13/22 02:37 [place] # (Auto) 0.3 10^3/uL (0.2-0.9) 04/13/22 02:37 Eos # (Auto) 0.0 10^3/uL (0.0-0.8) 04/13/22 02:37 Baso # (Auto) 0.0 10^3/uL (0.0-0.1) 04/13/22 02:37 Nucleated RBC % (auto) 0 % 04/13/22 02:37 Nucleated RBCs # 0.0 /100WBC 04/13/22 02:37 PT 20.20 SECONDS (12.1-14.9) H 04/11/22 17:12 INR 1.69 (0.8-1.2) H 04/11/22 17:12 APTT 33.4 SECONDS (23.9-36.7) 04/11/22 17:12 D-Dimer 3.62 ug/mIFEU (0-0.59) H 04/11/22 17:12 Sodium 131 mmol/L (136-145) L 04/13/22 02:37 Potassium 3.9 mmol/L (3.5-5.1) 04/13/22 02:37 Chloride 91 mmol/L (98-107) L 04/13/22 02:37 Carbon Dioxide 31 mmol/L (22-29) H 04/13/22 02:37 Anion Gap 12.9 (5-19) 04/13/22 02:37 BUN 21 mg/dL (8-23) 04/13/22 02:37 Creatinine 0.7 mg/dL (0.5-0.9) 04/13/22 02:37 GFR Calculation Not Reportable 04/13/22 02:37 Glucose 175 mg/dL (65-115) H 04/13/22 02:37 Calculated Osmolality 279 mOsm/kg (285-295) L 04/13/22 02:37 Calcium 8.7 mg/dL (8.5-10.5) 04/13/22 02:37 Phosphorus 4.3 mg/dL (2.5-4.5) 04/13/22 02:37 Magnesium 1.8 mg/dL (1.7-2.3) 04/13/22 02:37 Total Bilirubin 0.4 mg/dL (0.15-1.2) 04/13/22 02:37 AST 22 U/L (0-32) 04/13/22 02:37 ALT 11 U/L (0-33) 04/13/22 02:37 Alkaline Phosphatase 239 IU/L (35-105) H 04/13/22 02:37 Troponin T Baseline 46 ng/L (0-10) H 04/11/22 17:12 Troponin T 120 Minute 49.99 ng/L (0-10) H 04/11/22 19:20 Delta Troponin T 3.99 ABS# (0-10) 04/11/22 19:20 Troponin T Hi Sens 6Hr 50.30 ng/L (0-10) H 04/11/22 23:40 Troponin T Hi Sens 6Hr Delta 4.30 ng/L (0-12) 04/11/22 23:40 NT-Pro-B Natriuret Pep 1093 pg/mL (0-450) H 04/12/22 05:25 Total Protein 6.0 g/dL (6.6-8.7) L 04/13/22 02:37 Albumin 3.3 g/dL (3.5-5.2) L 04/13/22 02:37 Globulin 2.7 g/dL (1.3-4.6) 04/13/22 02:37 Lipase 16 U/L (13-60) 04/11/22 17:12 Procalcitonin 0.29 ng/mL (0-0.5) 04/12/22 05:25 TSH 0.60 uIU/mL (0.27-4.20) 04/12/22 05:25 Urine Color Yellow (Yellow) 04/11/22 23:20 Urine Appearance Hazy (CLEAR) A 04/11/22 23:20 Urine pH 6 (5-7) 04/11/22 23:20 Ur Specific [place] 1.015 (1.005-1.030) 04/11/22 23:20 Urine Protein Neg (Negative) 04/11/22 23:20 Urine Glucose (UA) Norm (Normal) 04/11/22 23:20 Urine Ketones 1+ (Negative) H 04/11/22 23:20 Urine Blood Trace (Negative) H 04/11/22 23:20 Urine Nitrate Positive (Negative) H 04/11/22 23:20 Urine Bilirubin Neg (Negative) 04/11/22 23:20 Urine Urobilinogen Norm mg/dL (Negative) 04/11/22 23:20 Ur Leukocyte Esterase 2+ (Negative) H 04/11/22 23:20 Urine RBC 0-4 /hpf (0-2) H 04/11/22 23:20 Urine WBC 40-55 /hpf (0-5) H 04/11/22 23:20 Ur Squamous Epith Cells 25-40 /hpf (0-5) H 04/11/22 23:20 Amorphous Sediment Not Reportable 04/11/22 23:20 Urine Bacteria 4+ /hpf (NONE) H 04/11/22 23:20 Coronavirus 229E (PCR) Not detected (NOT DETECT) 04/12/22 14:44 Influenza Type A Ag Negative (Negative) 04/12/22 14:44 Influenza Type B Ag Negative (Negative) 04/12/22 14:44 SARS-CoV-2 (PCR) Not detected (NOT DETECT) 04/12/22 14:44 Vitals Last Vital Signs Temp 98.2 F 04/13/22 08:00 Pulse 88 04/13/22 11:35 Resp 17 04/13/22 11:24 BP 124/54 04/13/22 08:00 Pulse Ox 98 04/13/22 11:24 Discharge Plan Discharge Patient Disposition: Home Condition: Stable Prescriptions: New nitroglycerin 0.4 mg tablet, sublingual 0.4 mg sublingual Q5M PRN (Reason: chest pain) Qty: 25 0RF Rx Instructions: do not exceed 3 doses per episode atorvastatin 40 mg Tablet 40 mg PO BEDTIME Qty: 90 0RF azithromycin 250 mg tablet 250 mg PO DAILY 3 Days Qty: 3 0RF Rx Instructions: start on day 2 of therapy cefdinir 300 mg capsule 300 mg PO BID 3 Days Qty: 6 0RF aspirin 81 mg tablet,delayed release (DR/EC) 81 mg PO DAILY Qty: 90 0RF Continued diazepam [Valium] 5 mg tablet 5 mg PO BID PRN (Reason: anxiety) 15 Days Qty: 30 0RF hydrocodone-acetaminophen 5-325 mg tablet 1 - 2 tab PO .Q4-6H PRN (Reason: pain) 7 Days Qty: 40 0RF potassium chloride 10 mEq capsule, extended release 10 meq PO BID 0RF ropinirole 4 mg tablet 4 mg PO BEDTIME 0RF venlafaxine 150 mg tablet extended release 24hr 150 mg PO DAILY 0RF Xarelto 20 mg tablet 20 mg PO DAILY Qty: 90 3RF Hold Instructions: Resume on 10/22/21. Rx Instructions: must administer with evening meal ergocalciferol (vitamin D2) 1,250 mcg (50,000 unit) capsule 1,250 mcg PO Q7D 0RF Rx Instructions: (ON WEDNESDAY) clobetasol 0.05 % gel 1 applic topical DAILY 0RF losartan 25 mg tablet 25 mg PO DAILY 0RF pregabalin [Lyrica] 100 mg Capsule 100 mg PO BEDTIME 0RF Cardizem LA 120 mg tablet extended release 24 hr 120 mg PO DAILY Qty: 60 2RF pantoprazole [Protonix] 20 mg tablet,delayed release (DR/EC) 20 mg PO DAILY Qty: 20 4RF metoprolol tartrate 25 mg tablet 25 mg PO BID Qty: 60 2RF Discharge Orders: Discharge Order (Routine); Ordered 04/13/22 Ordered By: Tin Salas Other Ambulatory Orders: Sestamibi Stress Test Request (Routine) Timeframe: 2 Weeks Facility: [facility] - Location: Cardiac Diagnostic Laboratory Ordered By: Tin Salas Referrals: June Merchant [Primary Care Provider] - 04/20/22 1:30 pm Discharge Diet: Cardiac Discharge Activity: Increase activity as tolerated and Oxygen as instructed Patient Instructions: Coronary Artery Disease (GEN), Pneumonia (GEN), Opioid Safety Activity Restrictions/Additional Instructions: Please follow-up with your primary doctor for resolution of pneumonia. Complete antibiotic course. In case of chest pressure, take nitroglycerin, but in case of more symptoms than usual, or persistent symptoms seek medical attention in ER. Discuss with your primary doctor follow-up regarding coronary disease and stress test. Continue to work with your primary doctor to optimize risk factors of cardiovascular disease. Follow-up with your primary doctor regarding nodular areas of airspace opacification up to 14 mm in left lower lobe concerning for possible malignancy or metastatic disease on the initial CT, although this finding was not reported on subsequent CT angiogram. Discuss with your primary doctor consideration of follow-up with application integration specialist. Due to possible urinary tract infection you are continued on antibiotic for now. Urinary culture has been sent and pending. Discharge Attestations Time Spent in Discharge Care*: greater than 30 min Quality Metrics Clinical Quality Measures [ No reported AMI, CVA or VTE this stay] Coding Level of Care Code Acute g FW DC note Diagnoses Leukocytosis D72.829 UTI (urinary tract infection) N39.0 Chest pain R07.9 Anemia D64.9 Atrial fibrillation I48.91 COPD (chronic obstructive pulmonary disease) J44.9 DVT (deep venous thrombosis) I82.409 Presence of vena cava filter Z95.828 Lung mass R91.8 Depression F32.A Elevated d-dimer R79.89
[2022-04-14 15:07] LABS: Acinetobacter baumannii Not Detected (NOT DETECT); Bacteroides fragilis Not Detected (NOT DETECT); Citrobacter Not Detected (NOT DETECT); Cronobacter sakazakii Not Detected (NOT DETECT); Enterobacter cloacae complex Not Detected (NOT DETECT); Enterobacter non cloacae Not Detected (NOT DETECT); Fusobacterium necrophorum Not Detected (NOT DETECT); Fusobacterium nucleatum Not Detected (NOT DETECT); Haemophilus influenzae Not Detected (NOT DETECT); Klebsiella pneumoniae group Not Detected (NOT DETECT); Morganella morganii Not Detected (NOT DETECT); Neisseria meningitidis Not Detected (NOT DETECT); Pan Candida Not Detected (NOT DETECT); Pan Gram-Positive Not Detected (NOT DETECT); Proteus mirabilis Not Detected (NOT DETECT); Pseudomonas aeruginosa Not Detected (NOT DETECT); Salmonella Not Detected (NOT DETECT); Serratia Not Detected (NOT DETECT); Serratia marcescens Not Detected (NOT DETECT); Stenotrophomonas maltophilia Not Detected (NOT DETECT)
== END 2022-04-13 13:36 | disposition home or self-care (01) | DRG 313 ==
LOC: ER 21:08 → MEDSURG 23:53
PROVIDERS: Student in an Organized Health Care Education/Training Program; Admitting Provider Family Medicine; Emergency Provider Emergency Medicine; PCP Nurse Practitioner Family; Visit Provider Internal Medicine
DX: R07.9 Chest pain, unspecified (principal); J18.9 Pneumonia, unspecified organism; I50.32 Chronic diastolic (congestive) heart failure; J96.11 Chronic respiratory failure with hypoxia; N39.0 Urinary tract infection, site not specified; I48.91 Unspecified atrial fibrillation; Z79.01 Long term (current) use of anticoagulants; I25.10 Atherosclerotic heart disease of native coronary artery without angina pectoris; Z95.5 Presence of coronary angioplasty implant and graft; I11.0 Hypertensive heart disease with heart failure; E78.5 Hyperlipidemia, unspecified; Z86.711 Personal history of pulmonary embolism; Z86.718 Personal history of other venous thrombosis and embolism; Z95.828 Presence of other vascular implants and grafts; G47.33 Obstructive sleep apnea (adult) (pediatric); F41.8 Other specified anxiety disorders; Z98.1 Arthrodesis status; Z85.44 Personal history of malignant neoplasm of other female genital organs; G25.81 Restless legs syndrome; Z79.891 Long term (current) use of opiate analgesic; I27.20 Pulmonary hypertension, unspecified; R59.0 Localized enlarged lymph nodes; R91.8 Other nonspecific abnormal finding of lung field; I34.0 Nonrheumatic mitral (valve) insufficiency; D64.9 Anemia, unspecified
CPT/HCPCS: 36415; 71045; 71250; 71275; 74176; 80053; 81001; 83690; 83735; 83880; 84100; 84145; 84443; 84484; 85025; 85378; 85610; 85730; 86403; 87040; 87077; 87086; 87186; 87449; 87635; 87641; 87804; 93005; 93306; 93970; 94640; 94664; 96374; 96376; 97110; 97161; 97165; 99285; C9113; J0696; J1200; J1940; J2920; J3010; J7614; Q0144; Q9967

== ENCOUNTER 2022-08-01 13:39 | Inpatient (IN) | payer MEDICARE, SELFPAY ==
[2022-08-01] VITALS (9 sets, daily range): BP systolic 108–156; BP diastolic 64–80; PULSE 51–84; RESP 15–19; TEMP 36.6–36.8; O2SAT 84–98; BMI 29.7
--- NOTE | 2022-08-01 13:55 | ECG_ITS ---
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 Measurements Intervals [place] Rate: 55 P: 86 TN: 147 QRS: 44 QRSD: 90 T: 66 QT: 433 QTc: 414 Interpretive Statements SINUS BRADYCARDIA ST DEVIATION AND MODERATE T-WAVE ABNORMALITY, CONSIDER ANTERIOR ISCHEMIA [-0.1+ mV T-WAVE IN V3/V4] Compared to ECG 04/12/2022 00:11:05 Possible ischemia now present Sinus tachycardia no longer present T-wave abnormality still present Electronically Signed On 08-01-2022 18:12:47 CDT by Glenna Coelho M.D. [email or web address]
--- NOTE | 2022-08-01 13:55 | XRR_ITS ---
PROCEDURE INFORMATION: Exam: XR Chest Exam date and time: 08/01/2022 2:12 PM Age: 87 years old Clinical indication: Cough and dyspnea; Additional info: Dyspnea/cough TECHNIQUE: Imaging protocol: Radiologic exam of the chest. Views: 1 view. COMPARISON: CT chest abdpel [id number] 04/11/2022 6:45 PM FINDINGS: Lungs: Hyperinflated lungs. No consolidation. Pleural spaces: No pleural effusion. No pneumothorax. Heart/Mediastinum: Mild cardiomegaly. Bones/joints: Posterior spinal fusion hardware noted within the lower thoracolumbar spine. Visualized osseous structures are intact. XR/XR chest 1V portable [id number] IMPRESSION: No acute findings.
--- NOTE | 2022-08-01 13:59 | W.ED.FEMALGU ---
HPI - Female Genitourinary General: Chief complaint: Urogenital-Female Stated complaint: Uable to urinate Time Seen by Provider: 08/01/22 13:54 Source: patient Mode of arrival: ambulatory History of Present Illness: 87-year-old female presents emergency room complaint difficulty urinating. She also had some increased swelling in her legs been short of breath on arrival here she is 84% on room air. Earlier this week she was seen by her primary care doctor and started on diuretic. States she has not had any increase in urine output with this. She has noticed increasing swelling of the lower extremities. She reports that she had a venous duplex yesterday that was negative and was started on the Lasix. She denies any chest pain has had some shortness of breath but denies any orthopnea. Has a history of COPD congestive heart failure and is on anticoagulation for atrial fibrillation MD elicited complaint: difficulty urinating Onset (ago): day(s) Exacerbating factors: none Relieving factors: none Associated symptoms: Reports short of breath; Deny abdominal pain, fevers/chills, headache(s), nausea, rash, seizures, syncope, vaginal bleeding, vaginal discharge or weakness Treatment prior to arrival: none Review of Systems Const: Denies: fever(s), chills, body aches, change in appetite, fatigue or malaise ENMT: Denies: throat pain, ear or mastoid pain, nasal discharge or nasal congestion Card: Reports: irregular heart rhythm (No history of atrial fibrillation); Denies: chest pain, palpitations or syncope Resp: Reports: dyspnea; Denies: productive cough or non-productive cough GI: Denies: abdominal pain or nausea : Denies: vaginal discharge Skin/Breast: Denies: rash or pruritus Neuro: Denies: headache(s) PFS ED PFSH: Medical History Acute blood loss anemia (ABLA) Anemia Atrial fibrillation Chest pain Chronic back pain Congestive heart failure COPD (chronic obstructive pulmonary disease) Uses trilogy at night with 2 L. Typically not on oxygen during day. Coronary artery disease Depression Depression with anxiety DVT (deep venous thrombosis) Dysphagia Dyspnea or other respiratory complaints Fusion of spine History of cancer of vulva History of pulmonary embolism Hx of blood clots Hyperlipidemia Hypertension Lumbar radiculopathy Melanotic stools Obstructive sleep apnea Post-op pain Pulmonary embolism Restless leg syndrome Surgical History H/O: hysterectomy History of back surgery History of coronary artery stent placement History of hip replacement History of knee replacement History of tonsillectomy Presence of vena cava filter Family History Other Cancer Chronic back pain Social History Smoking and tobacco status: never smoked Alcohol intake: current Alcohol intake frequency: few times a month History of recent travel: No Physical Exam Const: COMMON NORMALS: no acute distress GENERAL APPEARANCE: cooperative and comfortable ORIENTATION/CONSCIOUSNESS: Yes awake, Yes oriented to person, Yes oriented to place and Yes oriented to time HENMT: COMMON NORMALS: normocephalic, atraumatic and hearing grossly normal bilaterally HEAD & SCALP: normocephalic and atraumatic Neck/C-Spine: COMMON NORMALS: no JVD Resp: COMMON NORMALS: normal respiratory effort, No retractions, No use of accessory muscles and clear to auscultation bilaterally AUSCULTATION: clear to auscultation bilaterally Cardio: COMMON NORMALS: no JVD, regular rate, regular rhythm and No murmurs present (Cardio) RATE: regular rate RHYTHM: regular rhythm GI: COMMON NORMALS: Soft to palpation and No hepatosplenomegaly present AUSCULTATION: Yes normoactive bowel sounds PALPATION: Yes Soft to palpation, No Tenderness to palpation present (GI), No Guarding due to palpation present (GI) and Yes No hepatosplenomegaly present : SPECULUM EXAM - VAGINA: No vaginal bleeding OB/EXTERNAL & SPECULUM: No vaginal bleeding Extremity: COMMON NORMALS: normal to inspection, capillary refill normal, no calf tenderness and no pedal edema GENERAL: Yes edema (1+ lower extremities) Neuro: SENSORIUM/ORIENTATION: Yes oriented to person, Yes oriented to place and Yes oriented to time Skin: COMMON NORMALS: no rashes or lesions noted GENERAL SKIN EXAM: no rashes or lesions noted Course Vital Signs: Vital signs: Vital Signs Temperature 98.2 F 08/01/22 13:42 Pulse Rate 53 L 08/01/22 15:11 Respiratory Rate 19 H 08/01/22 15:11 Blood Pressure 147/71 08/01/22 15:11 Pulse Oximetry 97 08/01/22 15:11 Oxygen Delivery Me thod 08/01/22 15:11 Oxygen Flow Rate 2 08/01/22 15:11 MDM - Female Medical Decision Making Discharged with mild acute kidney injury. She is hypoxic and requiring 2 L by nasal cannula. No urine in bladder only placed Long patient given Lasix discussed with hospitalist orders written Medical Records I reviewed the patient's medical records. Lab Data I reviewed the patient's lab results. : 08/01/22 14:15 08/01/22 14:15 Radiology Impressions Chest X-Ray 08/01/22 13:55 IMPRESSION: No acute findings. Laboratory Results WBC 7.4 10^3/uL (4.0-10.0) 08/01/22 14:15 RBC 4.25 10^6/uL (4.1-5.3) 08/01/22 14:15 Hgb 11.0 g/dL (11.5-15.3) L 08/01/22 14:15 Hct 40.0 % (37.0-47.0) 08/01/22 14:15 MCV 94.1 fl (81-99) 08/01/22 14:15 MCH 25.9 pg (28.0-34.0) L 08/01/22 14:15 MCHC 27.5 g/dL (30.0-36.0) L 08/01/22 14:15 RDW 17.6 % (12.1-15.1) H 08/01/22 14:15 Plt Count 248 10^3/cmm (130-400) 08/01/22 14:15 MPV 9.6 fL (7.4-10.4) 08/01/22 14:15 Neut % (Auto) 65.1 % 08/01/22 14:15 Lymph % (Auto) 23.6 % 08/01/22 14:15 Dickey % (Auto) 10.4 % 08/01/22 14:15 Eos % (Auto) 0.5 % 08/01/22 14:15 Baso % (Auto) 0.1 % 08/01/22 14:15 Neut # (Auto) 4.80 10^3/uL (1.8-7.7) 08/01/22 14:15 Lymph # (Auto) 1.7 10^3/uL (0.8-4.8) 08/01/22 14:15 Dickey # (Auto) 0.8 10^3/uL (0.2-0.9) 08/01/22 14:15 Eos # (Auto) 0.0 10^3/uL (0.0-0.8) 08/01/22 14:15 Baso # (Auto) 0.0 10^3/uL (0.0-0.1) 08/01/22 14:15 Nucleated RBC % (auto) 0 % 08/01/22 14:15 Nucleated RBCs # 0.0 /100WBC 08/01/22 14:15 Sodium 134 mmol/L (136-145) L 08/01/22 14:15 Potassium 4.7 mmol/L (3.5-5.1) 08/01/22 14:15 Chloride 96 mmol/L (98-107) L 08/01/22 14:15 Carbon Dioxide 27 mmol/L (22-29) 08/01/22 14:15 Anion Gap 15.7 (5-19) 08/01/22 14:15 BUN 28 mg/dL (8-23) H 08/01/22 14:15 Creatinine 2.0 mg/dL (0.5-0.9) H 08/01/22 14:15 GFR Calculation Not Reportable 08/01/22 14:15 Glucose 131 mg/dL (65-115) H 08/01/22 14:15 Calculated Osmolality 285 mOsm/kg (285-295) 08/01/22 14:15 Calcium 8.9 mg/dL (8.5-10.5) 08/01/22 14:15 NT-Pro-B Natriuret Pep 9025 pg/mL (0-450) H 08/01/22 14:15 Discharge Plan Discharge Patient Disposition: Admitted As Inpatient Clinical Impression: Congestive heart failure, Acute kidney injury Condition: Stable Prescriptions: No Action hydrocodone-acetaminophen 5-325 mg tablet 1 - 2 tab PO .Q4-6H PRN (Reason: pain) 7 Days Qty: 40 0RF potassium chloride 10 mEq capsule, extended release 10 meq PO BID ropinirole 4 mg tablet 4 mg PO BEDTIME venlafaxine 150 mg tablet extended release 24hr 150 mg PO DAILY ergocalciferol (vitamin D2) 1,250 mcg (50,000 unit) capsule 1,250 mcg PO Q7D Rx Instructions: (ON WEDNESDAY) clobetasol 0.05 % gel 1 applic topical DAILY Xarelto 20 mg tablet 20 mg PO DAILY Qty: 90 0RF Hold Instructions: Resume on 10/22/21. Rx Instructions: must administer with evening meal 340b pantoprazole [Protonix] 20 mg tablet,delayed release (DR/EC) 20 mg PO DAILY Qty: 20 4RF metoprolol tartrate 25 mg tablet 25 mg PO BID Qty: 60 2RF nitroglycerin 0.4 mg tablet, sublingual 0.4 mg sublingual Q5M PRN (Reason: chest pain) Qty: 25 0RF Rx Instructions: do not exceed 3 doses per episode atorvastatin 40 mg Tablet 40 mg PO BEDTIME Qty: 90 0RF Zofran 8 mg Tablet 8 mg PO Q8H PRN (Reason: Nausea) Vitamin C 500 mg Tablet 1,000 mg PO DAILY gabapentin 300 mg Capsule 600 mg PO BEDTIME zinc 50 mg Tablet 50 mg PO DAILY Lasix 20 mg Tablet 20 mg PO DAILY Rx Instructions: x 5 days then every other day Referrals: June Merchant [Primary Care Provider] - Coding Level of Care Code ED Wind Instrument Repairer for Chg Fwd Exam Comprehensive
[2022-08-01 14:28] LABS: Basophils % 0.1 %; Eosinophils % 0.5 %; Lymphocytes # 1.7 10^3/uL (0.8-4.8); Lymphocytes % 23.6 %; Mean Corpuscular HGB Conc 27.5 g/dL (30.0-36.0); Mean Corpuscular Hemoglobin 25.9 pg (28.0-34.0); Mean Corpuscular Volume 94.1 fl (81-99); Mean Platelet Volume 9.6 fL (7.4-10.4); Monocytes # 0.8 10^3/uL (0.2-0.9); Monocytes % 10.4 %; Neutrophils % 65.1 %; Nucleated Red Blood Cells % 0 %; Platelet Count 248 10^3/cmm (130-400); Red Blood Count 4.25 10^6/uL (4.1-5.3); Red Cell Distribution Width 17.6 % (12.1-15.1); White Blood Count 7.4 10^3/uL (4.0-10.0)
[2022-08-01 14:50] LABS: Anion Gap 15.7 (5-19); Blood Urea Nitrogen 28 mg/dL (8-23); Calcium 8.9 mg/dL (8.5-10.5); Carbon Dioxide 27 mmol/L (22-29); Chloride 96 mmol/L (98-107); Glucose 131 mg/dL (65-115); NT Pro B Type Natriuretic Pept 9025 pg/mL (0-450); Osmolality Calculated 285 mOsm/kg (285-295); Potassium 4.7 mmol/L (3.5-5.1); Sodium 134 mmol/L (136-145)
[2022-08-01] MEDS: FUROsemide 10 mg/mL SDV 10mL 60 MG IVP (15:12)
--- NOTE | 2022-08-01 16:20 | PC.NURSE ---
Report called to NADYA Santos
--- NOTE | 2022-08-01 17:06 | CTR_ITS ---
PROCEDURE INFORMATION: Exam: CT Chest Without Contrast; Diagnostic Exam date and time: 08/01/2022 6:37 PM Age: 87 years old Clinical indication: Other: Unable to urinate; Shortness of breath; Prior surgery; Additional info: SOB, juan, possible obstructive nephropathy TECHNIQUE: Imaging protocol: Diagnostic computed tomography of the chest without contrast. Radiation optimization: All CT scans at this facility use at least one of these dose optimization techniques: automated exposure control; mA and/or kV adjustment per patient size (includes targeted exams where dose is matched to clinical indication); or iterative reconstruction. COMPARISON: [place] [id number] 04/11/2022 6:45 PM, CT chest 10/02/2021 RADIATION DOSE METRICS: Total DLP (mGy-cm): 800.5 FINDINGS: Lungs: No consolidation. There is a spiculated nodule in the left lower lobe measuring up to 1.5 cm in size which has increased in size from 10/02/2021 study measuring 1 cm at that time. Pleural spaces: Small volume right pleural effusion. No pneumothorax. Heart: Coronary artery calcifications noted. Mild cardiomegaly. No pericardial effusion. Lymph nodes: No enlarged lymph nodes. Vasculature: No aortic aneurysm. Bones/joints: Intact posterior spinal fusion hardware noted within the lower thoracolumbar spine. No acute fracture. Soft tissues: Unremarkable. PROCEDURE INFORMATION: Exam: CT Abdomen And Pelvis Without Contrast Exam date and time: 08/01/2022 6:37 PM Age: 87 years old Clinical indication: Other: Unable to urinate; Shortness of breath; Prior surgery; Additional info: SOB, juan, possible obstructive nephropathy TECHNIQUE: Imaging protocol: Computed tomography of the abdomen and pelvis without contrast. Radiation optimization: All CT scans at this facility use at least one of these dose optimization techniques: automated exposure control; mA and/or kV adjustment per patient size (includes targeted exams where dose is matched to clinical indication); or iterative reconstruction. COMPARISON: CT chest [facility] [id number] 04/11/2022 6:45 PM RADIATION DOSE METRICS: Total DLP (mGy-cm): 800.5 FINDINGS: Liver: Normal. No mass. Gallbladder and bile ducts: Contracted gallbladder. No calcified stones. No ductal dilation. Pancreas: Normal. No ductal dilation. Spleen: Calcified granulomas noted in the spleen. No splenomegaly. Adrenal glands: 2.5 cm left adrenal nodule, unchanged. Kidneys and ureters: No renal stones. 1.8 cm cyst noted in the upper pole the left kidney. No hydronephrosis. Stomach and bowel: Colonic diverticulosis. No obstruction. No mucosal thickening. Appendix: No evidence of appendicitis. Intraperitoneal space: Unremarkable. No free air. No significant fluid collection. Vasculature: IVC filter noted. Lymph nodes: Unremarkable. No enlarged lymph nodes. Urinary bladder: Long catheter noted within a decompressed bladder. Reproductive: Unremarkable as visualized. Bones/joints: Intact posterior spinal fusion hardware noted within the lower thoracolumbar spine. Intact right total hip arthroplasty. No acute fracture. Soft tissues: Unremarkable. CT/[place] [id number] IMPRESSION: 1. Small volume right pleural effusion. 2. Spiculated 1.5 cm nodule in the left lower lobe. This has increased in size from 10/02/2021 study measuring 1 cm at that time. This is suspicious for a primary lung malignancy. Consider PET-CT or tissue sampling for further evaluation. IMPRESSION: No acute findings. COMMENTS: 1. For patients with an IVC filter, recommend assessment for a management plan for the patient's IVC filter. If there is no established management plan, recommend referral to an interventional clinician on a nonemergent basis for evaluation. 2. Consistent with the [employer]'s Incidental Findings Committee white paper (J Am Mckay Radiol 2018): Any incidental renal lesion less than 1 cm or classified as too small to characterize, or any incidental cystic renal lesion characterized as simple-appearing, is likely benign. No follow-up imaging is recommended for these lesions per consensus recommendations based on imaging criteria.
--- NOTE | 2022-08-01 17:07 | PM.HP ---
Providers/Chief Complaint Admitting Physician: Jose Julien MD Primary Care Provider: June Merchant Chief Complaint: Uable to urinate History of Present Illness Maria Teresa Woodruff is a 87 year old female with history of DVT, PE s/p IVC filter, on anticoagulation with Xarelto, atrial fibrillation, back surgery, hip surgery 3 weeks ago, COPD on chronic 2 L nasal cannula and trelegy , diastolic HF presents to ER today with c/o N/V, decreased oral intake and decreased urine output. As per patient her spouse underwent surgery a week ago and since then she has not been taking care of herself. Her oral intake has decreased along with nausea and few episodes of diarrhea. She was having lower limb swelling so she was given lasix 20 mg oral by her PCP 3 days ago. She took 3 tabs and her urine output decreased yesterday so she presented to ER today. Denies any SOB, cough, headache, CP, dizziness. She has not been using her trelegy lately. In the ER she was found to have saturation in mid 80s on RA which improved to more than 90 on 2l, in MARIANNE with creat of 2.0 , small was placed and she was given 60 mg of IV lasix. Review of Systems General: Reports: 10 or more systems reviewed and unremarkable except in HPI and below Const: Denies: fever(s), chills, body aches, change in appetite, change in weight, malaise, night sweats, diaphoresis, change in sleep pattern, daytime sleepiness or snoring Eyes: Denies: change in vision, blurry vision, photophobia, eye discomfort or eye discharge ENMT: Denies: throat pain, enlarged tonsils, hoarseness, mouth pain, oral sores, dry mouth, tinnitus, nasal congestion or post nasal drip Card: Denies: chest pain, palpitations, irregular heart rhythm, edema, swelling of feet/ankles, lightheadedness, syncope, pre-syncope, dyspnea on exertion, orthopnea, leg pain with exertion or acrocyanosis Resp: Denies: dyspnea, productive cough, non-productive cough, wheezing, stridor, pain on inspiration, change in phlegm color, hemoptysis or chest congestion GI: Denies: abdominal pain, nausea, vomiting, hematemesis, coffee ground emesis, dysphagia, heartburn, diarrhea, constipation, bloating, GI cramping, change in bowel habits, pain on defecation, hematochezia or melena : Denies: flank pain, dysuria, urinary frequency, urinary urgency, urinary hesitancy, nocturia or hematuria Musc: Denies: neck pain, back pain, extremity pain, joint pain, joint swelling, joint redness, joint stiffness or limited range of motion Neuro: Denies: headache(s), numbness in extremities, weakness in extremities, sensory changes, lack of coordination, difficulty walking, frequent falls, dizziness, vertigo, confusion, Slurred speech present, difficulty communicating thoughts or seizure-like activity Psych: Denies: anxiety, depression, mood swings, panic attacks, hopelessness or irritability Endo: Denies: polyuria, polydipsia, tired all the time, cold intolerance, excessive sweating, flushing or heat intolerance Les/Lymph: Denies: easy bruising or easy bleeding All/Imm: Denies: tongue swelling, facial swelling or acute wheezing Medications/Allergies Home Medications Medication Instructions Recorded Confirmed Last Taken Type potassium chloride 10 mEq 10 meq PO BID 01/14/21 08/01/22 08/01/22 History capsule,extended release ropinirole 4 mg tablet 4 mg PO BEDTIME 01/14/21 08/01/22 07/31/22 History venlafaxine 150 mg tablet,extended 150 mg PO DAILY 01/14/21 08/01/22 08/01/22 History release 24 hr ergocalciferol (vitamin D2) 1,250 1,250 mcg PO Q7D 05/21/21 08/01/22 09/28/21 History mcg (50,000 unit) capsule clobetasol 0.05 % topical gel 1 applic topical DAILY 09/09/21 08/01/22 09/27/21 History metoprolol tartrate 25 mg tablet 25 mg PO BID #60 tabs 10/08/21 08/01/22 08/01/22 Rx pantoprazole 20 mg tablet,delayed 20 mg PO DAILY #20 tabs 10/08/21 08/01/22 08/01/22 Rx release (Protonix) hydrocodone 5 mg-acetaminophen 325 1 - 2 tab PO .Q4-6H PRN pain 7 11/12/21 08/01/22 Unknown Rx mg tablet days #40 tabs atorvastatin 40 mg tablet 40 mg PO BEDTIME #90 tabs 04/13/22 08/01/22 07/31/22 Rx nitroglycerin 0.4 mg sublingual 0.4 mg sublingual Q5M PRN chest 04/13/22 08/01/22 Unknown Rx tablet pain #25 tabs rivaroxaban 20 mg tablet (Xarelto) 20 mg PO DAILY #90 tabs 05/08/22 08/01/22 07/31/22 Rx ascorbic acid (vitamin C) 500 mg 1,000 mg PO DAILY 08/01/22 08/01/22 08/01/22 History tablet (Vitamin C) furosemide 20 mg tablet (Lasix) 20 mg PO DAILY 08/01/22 08/01/22 08/01/22 History gabapentin 300 mg capsule 600 mg PO BEDTIME 08/01/22 08/01/22 07/31/22 History ondansetron HCl 8 mg tablet 8 mg PO Q8H PRN Nausea 08/01/22 08/01/22 Unknown History zinc 50 mg tablet 50 mg PO DAILY 08/01/22 08/01/22 08/01/22 History Allergies Allergy/AdvReac Type Severity Reaction Status Date / Time amoxicillin Allergy rash Verified 05/08/22 10:48 epinephrine Allergy Unknown Verified 05/08/22 10:48 hydrochlorothiazide Allergy unknown Verified 05/08/22 10:48 Iodinated Contrast Media Allergy Unknown Verified 05/08/22 10:48 morphine Allergy nausea, Verified 05/08/22 10:48 hyper Penicillins Allergy rash Verified 05/08/22 10:48 Tetanus Vaccines and Toxoid Allergy unk Verified 05/08/22 10:48 PFSH Acute PFSH: Medical History Acute blood loss anemia (ABLA) Anemia Atrial fibrillation Chest pain Chronic back pain Congestive heart failure COPD (chronic obstructive pulmonary disease) Uses trilogy at night with 2 L. Typically not on oxygen during day. Coronary artery disease Depression Depression with anxiety DVT (deep venous thrombosis) Dysphagia Dyspnea or other respiratory complaints Fusion of spine History of cancer of vulva History of pulmonary embolism Hx of blood clots Hyperlipidemia Hypertension Lumbar radiculopathy Melanotic stools Obstructive sleep apnea Post-op pain Pulmonary embolism Restless leg syndrome Surgical History H/O: hysterectomy History of back surgery History of coronary artery stent placement History of hip replacement History of knee replacement History of tonsillectomy Presence of vena cava filter Family History Other Cancer Chronic back pain Social History Smoking and tobacco status: never smoked Alcohol intake: current Alcohol intake frequency: few times a month Caregiver/support person: Yes Lives independently: Yes Household members: spouse Housing: House History of recent travel: No Vitals/I&O/Wt Last Vital Signs Temp 98.2 F 08/01/22 13:42 Pulse 54 L 08/01/22 16:53 Resp 18 08/01/22 16:53 BP 156/78 08/01/22 16:53 Pulse Ox 97 08/01/22 16:53 O2 Del Method 08/01/22 16:53 O2 Flow Rate 2 08/01/22 16:53 Weight last 48 hrs Weight 78.471 kg Physical Exam Narrative: General: No acute distress, AO x3, NC oxygen supplementation HEENT: PERRLA, pupils bilaterally equal and reactive Chest:Bronchial breath sounds b/l ,decreased air entry, equal good air entry bilaterally, no more fine basal crackles CVS: S1-S2 regular, no murmurs, no tachycardia, no gallops, no rubs Abdomen: Soft, nontender, no organomegaly, bowel sounds present, morbidly obese Neuro: No focal deficits, no facial deformity, AO x3, power 5/5 in all limbs Urinary Catheter Management: Latex: Cath Placed During This Visit: yes Urinary Catheter Date of Insertion: 08/01/22 Urinary Catheter Time of Insertion: 15:11 Data : 08/02/22 01:47 08/01/22 14:15 A&P Assessment and plan (1) Acute kidney injury: (2) Hypoxia: (3) Diastolic heart failure: (4) History of pulmonary embolism: (5) COPD (chronic obstructive pulmonary disease): Plan 87-year-old lady with past medical history of COPD at baseline on Trelegy, DVT, pulm embolism on Xarelto presents to the ER today because of decreased oral intake, nausea and vomiting going on for last 1 week with decreased urine output for last 24 hours found to be hypoxic down to mid 80s and found to be in acute kidney injury on blood work. Acute kidney injury: Most likely secondary to a combination of dehydration from poor oral intake and new Lasix which was started few days ago versus CRS from possible diastolic heart failure. For now start patient on IV fluids with normal saline at 50 cc/h. Check urinalysis, urine lites, urine creatinine, urine eosinophils. CT abdomen pelvis to rule out obstructive nephropathy. Monitor urine output. Small catheter placed in the ER. Medical reconciliation done for nephrotoxic drugs. Monitor BMP daily for now. Hypoxia: Most likely secondary to COPD exacerbation. Patient has a history of diastolic heart failure and pulmonary embolism in the past. Seems dehydrated currently. Not compliant with Trelegy for last 1 week. Oxygen supplementation keeping saturation over 88%. DuoNebs every 6 hour, budesonide twice daily. Hold starting steroids for now. If does not improve within next 24 hours we will start on Solu-Medrol. Nausea/vomiting: Lipase normal. Could be secondary to acute kidney injury and uremia. CT abdomen pelvis will rule out other etiologies as well. Cycle troponins to rule out ACS. Patient denies any chest pain. Zofran as needed, Protonix Full liquid diet. Bradycardia: Heart rate running in 50s. Hold off on home dose of metoprolol. Seems her history of bradycardia in the past as well. Telemetry. History of DVT/pulmonary embolism/IVC filter: Continue home dose of Xarelto. Will change as per creatinine clearance. Continue other chronic medications including atorvastatin, gabapentin, hydrocodone Analgesia: Tylenol as needed, home dose of Lipscomb every 6 hour Glycemic control: Not needed. A1c. Nutrition: Full liquid diet CODE STATUS: Discussed in detail with patient. DNR/DNI. PUD prophylaxis: Protonix for PUD prophylaxis DVT prophylaxis: Home dose of Xarelto will suffice as DVT prophylaxis Discharge planning: Back home with caregiver once medically stable. Admit to [facility] with telemetry. This documentation was created by [employer] television mechanic software. Every effort was made to ensure accuracy of television mechanic. Any obvious errors or omissions should be clarified with the author of the document. Attestations Medical Necessity Statement*: Admission more than 2 MN for MARIANNE, hypoxia Time Spent in Patient Care: Greater than 35 minutes Coding Level of Care Code Acute Quiller Machine Fixer for [facility] Fwd Diagnoses Acute kidney injury N17.9 Hypoxia R09.02 Diastolic heart failure I50.30 History of pulmonary embolism Z86.711 COPD (chronic obstructive pulmonary disease) J44.9
--- NOTE | 2022-08-01 17:14 | ECG_ITS ---
[facility] Test Date: 2022-08-01 Pat Name: Maria Teresa Woodruff Department: Room: 277 Gender: Female Sheep Clipper: : 1935 Requested By: Jose Julien Order Number: [id number] Reading MD: Glenna Coelho M.D. Measurements Intervals [place] Rate: 65 P: 86 WI: 156 QRS: 43 QRSD: 93 T: 65 QT: 405 QTc: 423 Interpretive Statements SINUS RHYTHM WITH FREQUENT SUPRAVENTRICULAR PREMATURE COMPLEXES IN A BIGEMINAL PATTERN NONSPECIFIC T-WAVE ABNORMALITY ABNORMAL RHYTHM ECG Compared to ECG 08/01/2022 14:06:35 Sinus bradycardia no longer present Possible ischemia no longer present T-wave abnormality still present Electronically Signed On 08-01-2022 18:14:39 CDT by Glenna Coelho M.D. [email or web address]
[2022-08-01 17:47] LABS: Add Urine Microscopic? NO; Charge for UA Resulting for Rev
[2022-08-01 17:56] LABS: Bilirubin Urine Neg (Negative); Blood Urine Neg (Negative); Glucose Urine UA Norm (Normal); Ketones Urine Negative (Negative); Leukocyte Esterase Urine Negative (Negative); Nitrate Urine Negative (Negative); Protein Urine Neg (Negative); Urine Appearance Clear (CLEAR); Urine Color Yellow (Yellow); Urobilinogen Urine Neg (Negative); pH Urine 5 (5-7)
[2022-08-01 18:09] LABS: Potassium, Radom Urine 18 mmol/L; Urine Random Chloride 115 mmol/L; Urine Random Sodium 103 mmol/L
[2022-08-01 18:09] LABS: Urine Creatinine 126 mg/dL (28-217)
[2022-08-01 18:09] LABS: D Dimer 3.61 ug/mIFEU (0-0.59)
[2022-08-01 18:30] LABS: Troponin(5th) Baseline 305 ng/L (0-10)
[2022-08-01 18:33] LABS: Procalcitonin 0.09 ng/mL (0-0.5); Thyroid Stimulating Hormone 0.44 uIU/mL (0.27-4.20); Vitamin B12 1500 pg/mL (232-1245)
[2022-08-01 18:44] LABS: Iron 20 ug/dL (37-145); Percent Saturation 5.5 % (20-50); Total Iron Binding Capacity 359 mcg/dl; Unsaturated Iron Binding 339 ug/dL (112-347)
[2022-08-01 18:56] LABS: Eosinophil Urine No Eosinophils Seen; Urine Eosinophil Count 0 (0-0)
[2022-08-01] MEDS: sodium chloride 0.9% 1,000 ML 75 ML IV (19:05)
[2022-08-01 19:06] LABS: Folate Level < 20.0 ng/mL (4.8-37.3)
[2022-08-01 19:40] LABS: Adenovirus Not Detected (NOT DETECT); Chlamydia Pneumoniae Not Detected (NOT DETECT); Coronavirus 229E,HKU1,NL63,OC4 Not Detected (NOT DETECT); Human Metapneumovirus Not Detected (NOT DETECT); Human Rhinovirus/Enterovirus Not Detected (NOT DETECT); Influenza A Not Detected (NOT DETECT); Influenza A H1 Not Detected (NOT DETECT); Influenza A H1-2009 Not Detected (NOT DETECT); Influenza A H3 Not Detected (NOT DETECT); Influenza B Not Detected (NOT DETECT); Mycoplasma Pneumoniae Not Detected (NOT DETECT); Parainfluenza Virus Type 1 Not Detected (NOT DETECT); Parainfluenza Virus Type 2 Not Detected (NOT DETECT); Parainfluenza Virus Type 3 Not Detected (NOT DETECT); Parainfluenza Virus Type 4 Not Detected (NOT DETECT); Respiratory Syncytial Virus A Not Detected (NOT DETECT); Respiratory Syncytial Virus B Not Detected (NOT DETECT); SARS-COV-2 Not Detected (NOT DETECT)
[2022-08-01 19:53] LABS: Troponin 5 2HR Delta 0.5 ABS# (0-10)
[2022-08-01 19:55] LABS: Troponin 5 2HR 305.5 ng/L (0-10)
[2022-08-01] MEDS: gabapentin 300 mg Capsule 600 MG PO (20:23)
[2022-08-01] MEDS: ropinirole 2 mg Tablet 4 MG PO (20:23)
[2022-08-01] MEDS: atorvastatin 40 mg Tablet PO (20:23)
--- NOTE | 2022-08-01 20:24 | ECG_ITS ---
[facility] Test Date: 2022-08-01 Pat Name: Maria Teresa Woodruff Department: Room: 277 Gender: Female Resin Coater: : 1935 Requested By: Jose Julien Order Number: [id number] Reading MD: Measurements Intervals [place] Rate: 65 P: 85 MS: 157 QRS: 25 QRSD: 94 T: 120 QT: 396 QTc: 412 Interpretive Statements SINUS RHYTHM WITH FREQUENT SUPRAVENTRICULAR PREMATURE COMPLEXES NONSPECIFIC ST & T-WAVE ABNORMALITY Compared to ECG 08/01/2022 17:44:06 No significant changes [email or web address]
--- NOTE | 2022-08-01 20:33 | USCV_ITS ---
Maria Teresa Woodruff Age: 87 Gender: F : 1935 Exam Date: 08/01/2022 20:44 Ordering Phys: Cosmo Morgan MD Technologist: Brianna Torres Exam Location: [facility] [place] Indication: SOB BP: 122 / 80 HR: 67 Rhythm: Other Technical Quality: Adequate MEASUREMENTS (Male / Female) Normal Values 2D ECHO LV Diastolic Diameter PLAX 3.3 cm 4.2 - 5.9 / 3.9 - 5.3 cm LV Systolic Diameter PLAX 2.3 cm LV Chamber Size 2.6 cm IVS Diastolic Thickness 1.1 cm 0.6 - 1.0 / 0.6 - 0.9 cm IVS Systolic Thickness 1.6 cm LVPW Diastolic Thickness 1.1 cm 0.6 - 1.0 / 0.6 - 0.9 cm LVPW Systolic Thickness 1.8 cm RV Chamber Size 3.8 cm LVOT Diameter 2.0 cm LV Ejection Fraction 2D Teich 58.9 % LV Ejection Fraction MOD 2C 49.2 % LV Ejection Fraction 2C AL 52.8 % LA Diameter 4.4 cm LA Width 3.5 cm LA Height 3.8 cm RA Width 4.3 cm RA Height 5.7 cm Aorta at Sinotubular Diameter 2.6 cm IVC Diameter 2.9 cm M-MODE Aortic Annulus Diameter 3.4 cm LA Ao Ratio MM 1.4 MV E Point Septal Separation 0.3 cm DOPPLER AV Peak Velocity 147.0 cm/s LVOT Peak Velocity 87.0 cm/s AV Area Cont Eq vti 2.2 cm squared AV Area Cont Eq pk 1.9 cm squared MV Area PHT 3.3 cm squared MV E' Velocity 52.0 cm/s Mitral E to MV E' Ratio 8.4 Mitral E to LV E' Lateral Ratio 7.9 Mitral E to LV E' Septal Ratio 8.9 TR Peak Gradient 74.0 mmHg TR Mean Velocity 382.0 cm/s TR Mean Gradient 27.5 mmHg TR Velocity Time Integral 125.1 cm TV Peak E Velocity 70.0 cm/s Right Atrial Pressure 15.0 mmHg RV Acceleration Time 0.1 s RV Ejection Time 0.4 s RV AcT/ET 0.4 FINDINGS Left Ventricle Mild left ventricular hypertrophy. Normal left ventricular size and systolic function, EF 57 %. Right Ventricle The right ventricle is normal in size and function. Right Atrium Mildly increased right atrial size. Left Atrium Mildly increased left atrial size. Mitral Valve Mild mitral annular calcification. Trace mitral valve regurgitation. Aortic Valve Structurally normal aortic valve without significant sclerosis or stenosis. There is no aortic regurgitation. Tricuspid Valve Moderate tricuspid valve regurgitation. Estimated pulmonary artery peak systolic pressure of 74 mmHg with a mean pressure of 48 mmHg Pulmonic Valve Mild pulmonary valve regurgitation. Pericardium Normal pericardium without effusion. Aorta Normal aortic annulus size. IVC Dilated IVC with decreased respiratory variation. CONCLUSIONS Mild left ventricular hypertrophy. Normal left ventricular size and systolic function, EF 57 %. Mild biatrial enlargement. Mild mitral annular calcification. Trace mitral valve regurgitation. Moderate tricuspid valve regurgitation. Severe pulmonary embolism with an estimated pulmonary artery peak systolic pressure of 74 mmHg with a mean pressure of 48 mmHg. Estimated right atrial pressure of 15 mmHg Mild pulmonary valve regurgitation. There is no pericardial effusion. Compared to the study from 04/12/2022, there is e worsening of the pulmonary hypertension. Dr Glenna Coelho MD FAC (Electronically Signed) Final Date: 02 August 2022 09:18 S
--- NOTE | 2022-08-01 23:14 | ECG_ITS ---
[facility] Test Date: 2022-08-02 Pat Name: Maria Teresa Woodruff Department: Room: 277 Gender: Female [employer]: : 1935 Requested By: Jose Julien Order Number: [id number] Reading MD: Measurements Intervals [place] Rate: 64 P: NV: QRS: 33 QRSD: 97 T: 34 QT: 385 QTc: 400 Interpretive Statements ATRIAL FIBRILLATION NONSPECIFIC T-WAVE ABNORMALITY ABNORMAL RHYTHM ECG Compared to ECG 08/01/2022 20:24:09 Sinus rhythm no longer present T-wave abnormality still present [id number]
[2022-08-02] VITALS (10 sets, daily range): BP systolic 121–154; BP diastolic 57–87; PULSE 65–88; RESP 14–20; TEMP 36.4–36.8; O2SAT 91–99
[2022-08-02 00:30] LABS: Troponin 5 6HR 326.5 ng/L (0-10); Troponin 5 6HR Delta 21.5 ng/L (0-12)
[2022-08-02 02:01] LABS: Basophils % 0.3 %; Eosinophils # 0.1 10^3/uL (0.0-0.8); Eosinophils % 1.3 %; Hematocrit 34.2 % (37.0-47.0); Hemoglobin 9.6 g/dL (11.5-15.3); Lymphocytes # 1.7 10^3/uL (0.8-4.8); Mean Corpuscular HGB Conc 28.1 g/dL (30.0-36.0); Mean Corpuscular Hemoglobin 26.2 pg (28.0-34.0); Mean Corpuscular Volume 93.4 fl (81-99); Mean Platelet Volume 9.8 fL (7.4-10.4); Monocytes # 0.7 10^3/uL (0.2-0.9); Monocytes % 10.9 %; Neutrophils # 3.59 10^3/uL (1.8-7.7); Neutrophils % 59.2 %; Nucleated Red Blood Cells % 0 %; Platelet Count 200 10^3/cmm (130-400); Red Blood Count 3.66 10^6/uL (4.1-5.3); Red Cell Distribution Width 17.3 % (12.1-15.1); White Blood Count 6.1 10^3/uL (4.0-10.0)
[2022-08-02 02:16] LABS: Chol HDL Ratio 2.51 mg/dL (0.0-4.40); Cholesterol 128 mg/dL (0-200); HDL Cholesterol 51 mg/dL (60-100); LDL Cholesterol Calculated 63 mg/dL (50-129); Magnesium 1.8 mg/dL (1.7-2.3); Phosphorus 4.5 mg/dL (2.5-4.5); Triglycerides 70 mg/dL (0-150); VLDL Cholestrol Calculation 14 mg/dL (0-30)
[2022-08-02] MEDS: rivaroxaban 10 mg Tablet 20 MG PO (08:38)
[2022-08-02] MEDS: docusate sodium 100 mg Capsule PO ×2 (08:38→17:17)
[2022-08-02] MEDS: venlafaxine ER (24HR) 150 mg Capsule PO (08:38)
[2022-08-02] MEDS: pantoprazole DR 40 mg Tablet PO (08:39)
--- NOTE | 2022-08-02 09:30 | PM.CONSULT ---
Providers/Reason For Consult Consulting Physician/Specialty*: BENJY Coelho MD/cardiology Reason for Consult*: Patient with altered mental status, elevated troponin T and? Atrial fibrillation Requesting Physician: Dr. Morgan Attending Physician: Jose Julien MD Primary Care Provider: June Merchant History of Present Illness History of Present Illness Maria Teresa Woodruff is a 87 year old female, is admitted to hospital emergency room where she presented with complaints of generalized weakness, decreased urine output, peripheral edema and poor appetite. She was found to have elevated troponin T with no significant delta. She has a history of atrial fibrillation and pulmonary embolism. Cardiology consult is requested for further cardiac evaluation recommendations. This patient has been noticing some swelling of the lower extremities for the last 3 weeks or so. She also was finding it difficult to ambulate around. She was using a walker for ambulation. She had a recent hip surgery. She is known to have DVT and pulmonary embolism. She had an IVC filter placement 5 years ago in [place]. She is on long-term oral anticoagulation with Xarelto. She denies any chest pain or palpitations. No unusual shortness of breath. She was prescribed p.o. Lasix by the primary care provider. After taking 3 doses or so, patient was noticing decreasing urine output. She denied any fever, chills or cough. Because of her worsening overall symptoms, she was brought to the hospital. Patient denies any history of cardiac disease. However in her medical records, there is mention of coronary artery disease and PCI. Details of this is not available. In April of this year, she was admitted to the hospital with complaints of chest pain. The plan was to be an outpatient stress test. Apparently this has not been done yet. Review of Systems Narrative: CONSTITUTIONAL: No fever or chills. Feeling of generalized weakness. EYES: No blurring of vision or other visual disturbances lately. ENT: No hoarseness of voice, auditory disturbances or sore throat. CARDIOVASCULAR: As mentioned above. RESPIRATORY: Some shortness of breath with activities. History of sleep apnea. History for pulmonary nodule which is increasing in size GASTROINTESTINAL: History of dysphagia. GENITOURINARY: History of adrenal nodules. INTEGUMENTARY: No skin rashes or history of skin cancer. NEURO: No transient ischemic attacks or amaurosis. PSYCHIATRIC: No history of psychosis or major depression. HEMATOLOGIC: History of acute anemia ENDOCRINE: No history for diabetes MUSCULOSKELETAL: History of back surgery and hip surgery ALLERGY/IMMUNOLOGY: As mentioned above. Medications/Allergies Home Medications Medication Instructions Recorded Confirmed Last Taken Type potassium chloride 10 mEq 10 meq PO BID 01/14/21 08/01/22 08/01/22 History capsule,extended release ropinirole 4 mg tablet 4 mg PO BEDTIME 01/14/21 08/01/22 07/31/22 History venlafaxine 150 mg tablet,extended 150 mg PO DAILY 01/14/21 08/01/22 08/01/22 History release 24 hr ergocalciferol (vitamin D2) 1,250 1,250 mcg PO Q7D 05/21/21 08/01/22 09/28/21 History mcg (50,000 unit) capsule clobetasol 0.05 % topical gel 1 applic topical DAILY 09/09/21 08/01/22 09/27/21 History metoprolol tartrate 25 mg tablet 25 mg PO BID #60 tabs 10/08/21 08/01/22 08/01/22 Rx pantoprazole 20 mg tablet,delayed 20 mg PO DAILY #20 tabs 10/08/21 08/01/22 08/01/22 Rx release (Protonix) hydrocodone 5 mg-acetaminophen 325 1 - 2 tab PO .Q4-6H PRN pain 7 11/12/21 08/01/22 Unknown Rx mg tablet days #40 tabs atorvastatin 40 mg tablet 40 mg PO BEDTIME #90 tabs 04/13/22 08/01/22 07/31/22 Rx nitroglycerin 0.4 mg sublingual 0.4 mg sublingual Q5M PRN chest 04/13/22 08/01/22 Unknown Rx tablet pain #25 tabs rivaroxaban 20 mg tablet (Xarelto) 20 mg PO DAILY #90 tabs 05/08/22 08/01/22 07/31/22 Rx ascorbic acid (vitamin C) 500 mg 1,000 mg PO DAILY 08/01/22 08/01/22 08/01/22 History tablet (Vitamin C) furosemide 20 mg tablet (Lasix) 20 mg PO DAILY 08/01/22 08/01/22 08/01/22 History gabapentin 300 mg capsule 600 mg PO BEDTIME 08/01/22 08/01/22 07/31/22 History ondansetron HCl 8 mg tablet 8 mg PO Q8H PRN Nausea 08/01/22 08/01/22 Unknown History zinc 50 mg tablet 50 mg PO DAILY 08/01/22 08/01/22 08/01/22 History Allergies Allergy/AdvReac Type Severity Reaction Status Date / Time amoxicillin Allergy rash Verified 05/08/22 10:48 epinephrine Allergy Unknown Verified 05/08/22 10:48 hydrochlorothiazide Allergy unknown Verified 05/08/22 10:48 Iodinated Contrast Media Allergy Unknown Verified 05/08/22 10:48 morphine Allergy nausea, Verified 05/08/22 10:48 hyper Penicillins Allergy rash Verified 05/08/22 10:48 Tetanus Vaccines and Toxoid Allergy unk Verified 05/08/22 10:48 Current Medications Generic Name Dose Route Start Last Admin Trade Name Freq PRN Reason Stop Dose Admin Atorvastatin Calcium 40 mg 08/01/22 21:00 08/01/22 20:23 Atorvastatin 40 Mg Tablet PO 40 mg BEDTIME LV Administration Docusate Sodium 100 mg 08/01/22 18:00 08/02/22 08:38 Docusate Sodium 100 Mg Capsule PO 100 mg BID LV Administration Gabapentin 600 mg 08/01/22 21:00 08/01/22 20:23 Gabapentin 300 Mg Capsule PO 600 mg BEDTIME LV Administration Pantoprazole Sodium 40 mg 08/02/22 09:00 08/02/22 08:[address] 40 Mg Tablet PO 40 mg DAILY LV Administration Rivaroxaban 20 mg 08/02/22 09:00 08/02/22 08:38 Rivaroxaban 10 Mg Tablet PO 20 mg DAILY LV Administration Ropinirole HCl 4 mg 08/01/22 21:00 08/01/22 20:23 Ropinirole 2 Mg Tablet PO 4 mg BEDTIME LV Administration Venlafaxine HCl 150 mg 08/02/22 09:00 08/02/22 08:38 Venlafaxine Er (24hr) 150 Mg Capsule PO 150 mg DAILY LV Administration PFSH Acute PFSH: Medical History Acute blood loss anemia (ABLA) Anemia Atrial fibrillation Chest pain Chronic back pain Congestive heart failure COPD (chronic obstructive pulmonary disease) Uses trilogy at night with 2 L. Typically not on oxygen during day. Coronary artery disease Depression Depression with anxiety DVT (deep venous thrombosis) Dysphagia Dyspnea or other respiratory complaints Fusion of spine History of cancer of vulva History of pulmonary embolism Hx of blood clots Hyperlipidemia Hypertension Lumbar radiculopathy Melanotic stools Obstructive sleep apnea Post-op pain Pulmonary embolism Restless leg syndrome Surgical History H/O: hysterectomy History of back surgery History of coronary artery stent placement History of hip replacement History of knee replacement History of tonsillectomy Presence of vena cava filter Family History Other Cancer Chronic back pain Social History Smoking and tobacco status: never smoked Alcohol intake: current Alcohol intake frequency: few times a month Caregiver/support person: Yes Lives independently: Yes Household members: spouse Housing: House History of recent travel: No Vitals/I&O/Wt Last Vital Signs Temp 97.5 F L 08/02/22 07:59 Pulse 75 08/02/22 07:59 Resp 16 08/02/22 07:59 BP 154/87 08/02/22 07:59 Pulse Ox 91 08/02/22 07:59 O2 Del Method 08/02/22 07:59 O2 Flow Rate 2 08/01/22 17:07 08/01/22 08/02/22 08/02/22 22:59 06:59 14:59 Intake Total 150 / 150 430 / 580 1000 / 1000 Output Total 450 / 450 1400 / 1850 Balance -300 / -300 -970 / -1270 1000 / 1000 Weight last 48 hrs Weight 173 lb Physical Exam Narrative: GENERAL: The patient is alert and oriented times three. Not in any acute distress. HEENT: Mild pallor. No icterus or lymphadenopathy.Oral cavity: There are no mucous membrane lesions. NECK: Trachea appears to be central. No masses noted. No JVD or thyromegaly appreciated. RESPIRATORY: Chest is symmetrical. No intercostals muscle retraction or any accessory muscle activation. There is no chest wall tenderness. Breath sounds are heard bilaterally. No rales or rhonchi heard. No evidence of any consolidation. BREASTS: Deferred. HEART: The heart sounds are normal. No S3 or S4. No significant murmurs. No pericardial rub ABDOMEN: No vessel pulsations or distention. No tenderness. No organomegaly appreciated. Bowel sounds are normally heard. : Deferred. RECTAL: Deferred. LYMPHATIC: No lymphadenopathy noted in the neck. EXTREMITIES: 1+ edema both lower extremities. No cyanosis. MUSCULOSKELETAL: No acute joint deformities or swelling SKIN: There are no significant rashes or ecchymosis NEUROPSYCHIATRIC: The patient is alert and oriented x3. Appears to be in a good mood. No tremors or rigidity noted. Urinary Catheter Management: Latex: Cath Placed During This Visit: yes Urinary Catheter Date of Insertion: 08/01/22 Urinary Catheter Time of Insertion: 15:11 Data : 08/02/22 01:47 08/02/22 01:47 Other Labs: Laboratory Last Values WBC 6.1 10^3/uL (4.0-10.0) 08/02/22 01:47 RBC 3.66 10^6/uL (4.1-5.3) L 08/02/22 01:47 Hgb 9.6 g/dL (11.5-15.3) L 08/02/22 01:47 Hct 34.2 % (37.0-47.0) L 08/02/22 01:47 MCV 93.4 fl (81-99) 08/02/22 01:47 MCH 26.2 pg (28.0-34.0) L 08/02/22 01:47 MCHC 28.1 g/dL (30.0-36.0) L 08/02/22 01:47 RDW 17.3 % (12.1-15.1) H 08/02/22 01:47 Plt Count 200 10^3/cmm (130-400) 08/02/22 01:47 MPV 9.8 fL (7.4-10.4) 08/02/22 01:47 Neut % (Auto) 59.2 % 08/02/22 01:47 Lymph % (Auto) 28.0 % 08/02/22 01:47 [place] % (Auto) 10.9 % 08/02/22 01:47 Eos % (Auto) 1.3 % 08/02/22 01:47 Baso % (Auto) 0.3 % 08/02/22 01:47 Neut # (Auto) 3.59 10^3/uL (1.8-7.7) 08/02/22 01:47 Lymph # (Auto) 1.7 10^3/uL (0.8-4.8) 08/02/22 01:47 [place] # (Auto) 0.7 10^3/uL (0.2-0.9) 08/02/22 01:47 Eos # (Auto) 0.1 10^3/uL (0.0-0.8) 08/02/22 01:47 Baso # (Auto) 0.0 10^3/uL (0.0-0.1) 08/02/22 01:47 Nucleated RBC % (auto) 0 % 08/02/22 01:47 Nucleated RBCs # 0.0 /100WBC 08/02/22 01:47 D-Dimer 3.61 ug/mIFEU (0-0.59) H 08/01/22 17:41 Sodium 134 mmol/L (136-145) L 08/01/22 14:15 Potassium 4.7 mmol/L (3.5-5.1) 08/01/22 14:15 Chloride 96 mmol/L (98-107) L 08/01/22 14:15 Carbon Dioxide 27 mmol/L (22-29) 08/01/22 14:15 Anion Gap 15.7 (5-19) 08/01/22 14:15 BUN 28 mg/dL (8-23) H 08/01/22 14:15 Creatinine 2.0 mg/dL (0.5-0.9) H 08/01/22 14:15 GFR Calculation Not Reportable 08/01/22 14:15 Glucose 131 mg/dL (65-115) H 08/01/22 14:15 Calculated Osmolality 285 mOsm/kg (285-295) 08/01/22 14:15 Calcium 8.9 mg/dL (8.5-10.5) 08/01/22 14:15 Phosphorus 4.5 mg/dL (2.5-4.5) 08/02/22 01:47 Magnesium 1.8 mg/dL (1.7-2.3) 08/02/22 01:47 Iron 20 ug/dL (37-145) L 08/01/22 17:41 TIBC 359 mcg/dl 08/01/22 17:41 % Saturation 5.5 % (20-50) L 08/01/22 17:41 Unsat Iron Binding 339 ug/dL (112-347) 08/01/22 17:41 Troponin T Baseline 305 ng/L (0-10) H* 08/01/22 17:41 Troponin T 120 Minute 305.5 ng/L (0-10) H 08/01/22 19:15 Delta Troponin T 0.5 ABS# (0-10) 08/01/22 19:15 Troponin T Hi Sens 6Hr 326.5 ng/L (0-10) H 08/01/22 23:38 Troponin T Hi Sens 6Hr Delta 21.5 ng/L (0-12) H* 08/01/22 23:38 NT-Pro-B Natriuret Pep 9025 pg/mL (0-450) H 08/01/22 14:15 Triglycerides 70 mg/dL (0-150) 08/02/22 01:47 Cholesterol 128 mg/dL (0-200) 08/02/22 01:47 LDL Cholesterol, Calc 63 mg/dL (50-129) 08/02/22 01:47 Total VLDL Cholesterol 14 mg/dL (0-30) 08/02/22 01:47 HDL Cholesterol 51 mg/dL (60-100) L 08/02/22 01:47 Cholesterol/HDL Ratio 2.51 mg/dL (0.0-4.40) 08/02/22 01:47 Vitamin B12 1500 pg/mL (232-1245) H 08/01/22 17:41 Folate < 20.0 ng/mL (4.8-37.3) 08/01/22 17:41 Procalcitonin 0.09 ng/mL (0-0.5) 08/01/22 17:41 TSH 0.44 uIU/mL (0.27-4.20) 08/01/22 17:41 Urine Color Yellow (Yellow) 08/01/22 17:35 Urine Appearance Clear (CLEAR) 08/01/22 17:35 Urine pH 5 (5-7) 08/01/22 17:35 Ur Specific [place] 1.010 (1.005-1.030) 08/01/22 17:35 Urine Protein Neg (Negative) 08/01/22 17:35 Urine Glucose (UA) Norm (Normal) 08/01/22 17:35 Urine Ketones Negative (Negative) 08/01/22 17:35 Urine Blood Neg (Negative) 08/01/22 17:35 Urine Nitrate Negative (Negative) 08/01/22 17:35 Urine Bilirubin Neg (Negative) 08/01/22 17:35 Urine Urobilinogen Neg mg/dL (Negative) 08/01/22 17:35 Ur Leukocyte Esterase Negative (Negative) 08/01/22 17:35 Ur Eosinophil Smear 0 (0-0) 08/01/22 16:11 Urine Eosinophils No eosinophils seen 08/01/22 16:11 Ur Random Sodium 103 mmol/L 08/01/22 17:35 Ur Random Potassium 18 mmol/L 08/01/22 17:35 Ur Random Chloride 115 mmol/L 08/01/22 17:35 Urine Creatinine 126 mg/dL (28-217) 08/01/22 16:11 Coronavirus 229E (PCR) Not detected (NOT DETECT) 08/01/22 17:35 SARS-CoV-2 (PCR) Not detected (NOT DETECT) 08/01/22 17:35 Micro: Microbiology 08/01/22 17:35 Legionella Urinary Antigen - Final Urine Catheterized EKG 1: My Interpretation: Multi focal atrial rhythm with some nonspecific T wave changes. Heart rate of 64 bpm EKG computer-generated impression: Chest X-Ray 08/01/22 13:55 IMPRESSION: No acute findings. Chest/Abdomen/Pelvis CT 08/01/22 17:06 IMPRESSION: 1. Small volume right pleural effusion. 2. Spiculated 1.5 cm nodule in the left lower lobe. This has increased in size from 10/02/2021 study measuring 1 cm at that time. This is suspicious for a primary lung malignancy. Consider PET-CT or tissue sampling for further evaluation. IMPRESSION: No acute findings. COMMENTS: 1. For patients with an IVC filter, recommend assessment for a management plan for the patient's IVC filter. If there is no established management plan, recommend referral to an interventional clinician on a nonemergent basis for evaluation. 2. Consistent with the [place] [employer]'s Incidental Findings Committee white paper (J Am Mckay Radiol 2018): Any incidental renal lesion less than 1 cm or classified as too small to characterize, or any incidental cystic renal lesion characterized as simple-appearing, is likely benign. No follow-up imaging is recommended for these lesions per consensus recommendations based on imaging criteria. Echocardiogram ?Mild left ventricular hypertrophy. Normal left ventricular size ?and systolic function, EF 57 %. ?Mild biatrial enlargement. ?Mild mitral annular calcification. Trace mitral valve ?regurgitation. ?Moderate tricuspid valve regurgitation. ?Severe pulmonary embolism with an estimated pulmonary artery ?peak systolic pressure of 74 mmHg with a mean pressure of 48 ?mmHg.? Estimated right atrial pressure of 15 mmHg ?Mild pulmonary valve regurgitation. ?There is no pericardial effusion. ?Compared to the study from 04/12/2022, there is e worsening of the ?pulmonary hypertension. A&P Assessment and plan (1) Elevated troponin: Etiology is not clear. Non-ST elevation myocardial infarction is a consideration. Type II TN from atrial arrhythmia/high blood pressure/diastolic heart failure/hypoxia etc. also is a consideration. According the patient, she had stress testing and? Cardiac catheterization in the past. But details are not available. Currently she denies any chest pain. No unusual shortness of breath. No fever. May continue on the oral anticoagulation for the time being. For further evaluation of the cardiac status, a Myocardial perfusion imaging would be appropriate. This was discussed with the patient in detail. She is willing to go for the test. We may schedule this tomorrow . Based on the results, further recommendations will be made. (2) Atrial arrhythmia: Patient is found to have multifocal atrial rhythm in the hospital. She has a questionable history of atrial fibrillation. She has biatrial enlargement based on echocardiogram. It is possible that she may have intermittent atrial fibrillation. (3) Chronic diastolic heart failure: She has a history of diastolic heart failure. Currently the heart failure seems to be fairly compensated. (4) Venous thromboembolism: Patient is known to have DVT and pulmonary embolism. She had an IVC filter placement. She is on long-term oral anticoagulation. This may be continued. (5) Benign hypertension: The blood pressures are stage II. May optimize antihypertensive medication. (6) Pulmonary hypertension: Pain seems to have severe pulmonary hypertension. This could be multifactorial. She apparently had a complicated COVID-19 infection. The pulmonary embolism also either contributed to this. I may add a calcium channel marie namely Procardia XL 30 mg, to the current regimen Plan Other problems are Chronic anemia Pulmonary nodule -increasing size,? Malignancy Adrenal nodule Degenerative joint disease Obstructive sleep apnea Dyslipidemia based on the patient's clinical progress on the results of the above, further recommendations will be made. Thank you for the opportunity to eval this patient make these recommendations Consult Attestations Medical Necessity Statement: Patient requires continued hospital stay for close monitoring and further management Coding Level of Care Code Acute Clinical Care Manager for Chg Fwd History Detailed Exam Detailed Medical Decision Making High Complexity Diagnoses Elevated troponin R77.8 Atrial arrhythmia I49.8 Chronic diastolic heart failure I50.32 Venous thromboembolism I82.90 Benign hypertension I10 Pulmonary hypertension I27.20
--- NOTE | 2022-08-02 10:07 | PC.NURSE ---
Physician orders: Danuta rouse tomorrow
--- NOTE | 2022-08-02 14:31 | P.PN_ITS ---
Subjective Subjective: No acute events. Good urine output overnight. Nausea seems to be settling. Overnight troponins were elevated though delta troponins were not significant. Cardiology was consulted by overnight physician. Patient states she is feeling better. Denies any chest pain. Today morning CBC reported though CMP still pending. Vitals/I&O/Wt Last Vital Signs Temp 98.3 F 08/02/22 12:00 Pulse 69 08/02/22 12:00 Resp 16 08/02/22 12:00 BP 154/87 08/02/22 12:00 Pulse Ox 97 08/02/22 12:00 O2 Del Method 08/02/22 12:00 O2 Flow Rate 2 08/02/22 11:42 08/01/22 08/02/22 08/02/22 22:59 06:59 14:59 Intake Total 150 / 150 430 / 580 1240 / 1240 Output Total 450 / 450 1400 / 1850 Balance -300 / -300 -970 / -1270 1240 / 1240 Weight last 48 hrs Weight 78.471 kg Physical Exam Narrative: General: No acute distress, AO x3, NC oxygen supplementation HEENT: PERRLA, pupils bilaterally equal and reactive Chest:Bronchial breath sounds b/l ,decreased air entry, equal good air entry bilaterally, no more fine basal crackles CVS: S1-S2 regular, no murmurs, no tachycardia, no gallops, no rubs Abdomen: Soft, nontender, no organomegaly, bowel sounds present, morbidly obese Neuro: No focal deficits, no facial deformity, AO x3, power 5/5 in all limbs Urinary Catheter Management: Latex: Cath Placed During This Visit: yes Urinary Catheter Date of Insertion: 08/01/22 Urinary Catheter Time of Insertion: 15:11 Data : 08/02/22 01:47 08/01/22 14:15 Micro: Microbiology 08/01/22 17:40 MRSA Culture - Final Nose 08/01/22 17:35 Legionella Urinary Antigen - Final Urine Catheterized A&P Assessment and plan (1) Acute kidney injury: (2) Hypoxia: (3) Diastolic heart failure: (4) History of pulmonary embolism: (5) COPD (chronic obstructive pulmonary disease): (6) Pulmonary hypertension: (7) Atrial arrhythmia: (8) Elevated troponin: Plan 87-year-old lady with past medical history of COPD at baseline on Trelegy, DVT, pulm embolism on Xarelto presents to the ER today because of decreased oral intake, nausea and vomiting going on for last 1 week with decreased urine output for last 24 hours found to be hypoxic down to mid 80s and found to be in acute kidney injury on blood work. Acute kidney injury: Most likely secondary to a combination of dehydration from poor oral intake and new Lasix which was started few days ago versus CRS from possible diastolic heart failure. For now start patient on IV fluids with normal saline at 50 cc/h. Check urinalysis, urine lites, urine creatinine, urine eosinophils. CT abdomen pelvis to rule out obstructive nephropathy. Monitor urine output. Long catheter placed in the ER. Medical reconciliation done for nephrotoxic drugs. Monitor BMP daily for now. Hypoxia: Most likely secondary to COPD exacerbation. Patient has a history of diastolic heart failure and pulmonary embolism in the past. Seems dehydrated currently. Not compliant with Trelegy for last 1 week. Oxygen supplementation keeping saturation over 88%. DuoNebs every 6 hour, budesonide twice daily. Hold starting steroids for now. If does not improve within next 24 hours we will start on Solu-Medrol. Nausea/vomiting: Lipase normal. Could be secondary to acute kidney injury and uremia. CT abdomen pelvis will rule out other etiologies as well. Cycle troponins to rule out ACS. Patient denies any chest pain. Zofran as needed, Protonix Full liquid diet. Elevated troponins: ACS unlikely as patient does not have any active chest pain. Most likely type II MA secondary to acute kidney injury. Echocardiogram done shows an EF of 57%, biatrial enlargement, moderate TR, severe pulmonary hypertension. Plan for Lexiscan stress test in a.m. N.p.o. after midnight. Bradycardia: Heart rate running in 50s. Hold off on home dose of metoprolol. Seems her history of bradycardia in the past as well. Telemetry. History of DVT/pulmonary embolism/IVC filter: Continue home dose of Xarelto. Will change as per creatinine clearance. Continue other chronic medications including atorvastatin, gabapentin, hydrocodone Analgesia: Tylenol as needed, home dose of [place] every 6 hour Glycemic control: Not needed. A1c. Nutrition: Full liquid diet CODE STATUS: Discussed in detail with patient. DNR/DNI. PUD prophylaxis: Protonix for PUD prophylaxis DVT prophylaxis: Home dose of Xarelto will suffice as DVT prophylaxis Discharge planning: Back home with caregiver once medically stable. Admit to [facility] with telemetry. Plan for the day: Will await CMP results. Continue with normal saline at 50 cc/h. Long catheterization and strict input output charting. Oxygen supplementation keeping saturation over 88%. Hold off on starting steroids. Plan for Lexiscan stress test in a.m. N.p.o. after midnight. Monitor for fluid overload. This documentation was created by [employer] permaculture contractor software. Every effort was made to ensure accuracy of permaculture contractor. Any obvious errors or omissions should be clarified with the author of the document. Attestations Medical Necessity Statement*: Requires further hospitalization for management of acute kidney injury, elevated troponins while type II MA is ruled out, hypoxia in setting of severe pulmonary hypertension, COPD while ACS is ruled out Time Spent in Patient Care: Greater than 35 minutes Coding Level of Care Code Acute Network Architect Manager for [employer] Fwd Diagnoses Acute kidney injury N17.9 Hypoxia R09.02 Diastolic heart failure I50.30 History of pulmonary embolism Z86.711 COPD (chronic obstructive pulmonary disease) J44.9 Pulmonary hypertension I27.20 Atrial arrhythmia I49.8 Elevated troponin R77.8
[2022-08-02 14:50] LABS: Alanine Aminotransferase 26 U/L (0-33); Albumin Level 3.2 g/dL (3.5-5.2); Alkaline Phosphatase 198 U/L (35-105); Anion Gap 16.8 (5-19); Aspartate Amino Transferase 32 U/L (0-32); Blood Urea Nitrogen 27 mg/dL (8-23); Calcium 8.4 mg/dL (8.5-10.5); Carbon Dioxide 29 mmol/L (22-29); Chloride 98 mmol/L (98-107); Globulin 2.6 g/dL (1.3-4.6); Glucose 93 mg/dL (65-115); Osmolality Calculated 295 mOsm/kg (285-295); Potassium 3.8 mmol/L (3.5-5.1); Sodium 140 mmol/L (136-145); Total Bilirubin 0.3 mg/dL (0.15-1.2); Total Protein 5.8 g/dL (6.6-8.7)
[2022-08-02] MEDS: sodium chloride 0.9% 1,000 ML 50 ML IV (15:47)
[2022-08-02] MEDS: HYDROcodone-acetaminophen 5-325 mg Tablet 1 TAB PO (17:23)
[2022-08-02] MEDS: ipratropium-albuterol 3 mL Neb INHALATION (20:21)
[2022-08-02] MEDS: budesonide 0.5 mg/2 mL Neb INHALATION (20:21)
[2022-08-02] MEDS: atorvastatin 40 mg Tablet PO (20:47)
[2022-08-02] MEDS: ropinirole 2 mg Tablet 4 MG PO (20:47)
[2022-08-02] MEDS: gabapentin 300 mg Capsule 600 MG PO (20:47)
[2022-08-03] VITALS (15 sets, daily range): BP systolic 116–149; BP diastolic 51–97; PULSE 71–83; RESP 15–20; TEMP 36.3–36.6; O2SAT 87–98
--- NOTE | 2022-08-03 | ECG_ITS ---
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 Interpretive Statements NAME OF STUDY: LEXISCAN SESTAMIBI STRESS TEST INDICATION: Chest Pain PROCEDURE: At the baseline, the EKG revealed sinus bradycardia with frequent premature atrial contractions. Poor R wave progression. Some nonspecific T wave changes. The baseline heart rate was 75 bpm with a blood pressue of 127/45 mm of Hg Lexiscan was infused over a period of 20 seconds. A total of 0.4 milligrams of Lexiscan was infused. The stress phase was continued for a total of 5 minutes. Heart rate at the end of the stress phase was 75 bpm with a blood pressure 120/64 mm of Hg. The EKG at the peak infusion revealed .Sestamibi was injected 20 seconds after the Lexiscan infusion. Heart rate at the end of the recovery phase was 74 bpm with a blood pressure of 149/97 mm of Hg. CONCLUSION: 1. No significant EKG changes with the LexiScan infusion 2. No LexiScan induced chest pain or cardiac arrhythmia 3. Normal blood pressure and heart rate response 4. Sestamibi/sestamibi perfusion scan pending; see separate report. Electronically Signed On 08-08-2022 17:13:16 CDT by Glnena Coelho M.D. [id number]
[2022-08-03] MEDS: ipratropium-albuterol 3 mL Neb INHALATION ×3 (02:23→20:44)
[2022-08-03 04:58] LABS: Basophils % 0.5 %; Eosinophils # 0.1 10^3/uL (0.0-0.8); Eosinophils % 1.6 %; Hemoglobin 9.2 g/dL (11.5-15.3); Lymphocytes # 1.3 10^3/uL (0.8-4.8); Lymphocytes % 22.2 %; Mean Corpuscular HGB Conc 27.1 g/dL (30.0-36.0); Mean Corpuscular Hemoglobin 25.7 pg (28.0-34.0); Mean Platelet Volume 9.6 fL (7.4-10.4); Monocytes # 0.6 10^3/uL (0.2-0.9); Neutrophils # 3.68 10^3/uL (1.8-7.7); Neutrophils % 64.4 %; Nucleated Red Blood Cells % 0 %; Platelet Count 187 10^3/cmm (130-400); Red Blood Count 3.58 10^6/uL (4.1-5.3); Red Cell Distribution Width 16.9 % (12.1-15.1); White Blood Count 5.7 10^3/uL (4.0-10.0)
[2022-08-03 05:25] LABS: Alanine Aminotransferase 21 U/L (0-33); Albumin Level 3.2 g/dL (3.5-5.2); Alkaline Phosphatase 194 U/L (35-105); Anion Gap 9.2 (5-19); Aspartate Amino Transferase 26 U/L (0-32); Blood Urea Nitrogen 20 mg/dL (8-23); Calcium 8.6 mg/dL (8.5-10.5); Carbon Dioxide 34 mmol/L (22-29); Chloride 104 mmol/L (98-107); Creatinine Clr Calc Pharmacy 52.1136; Globulin 2.4 g/dL (1.3-4.6); Glucose 105 mg/dL (65-115); Osmolality Calculated 299 mOsm/kg (285-295); Potassium 4.2 mmol/L (3.5-5.1); Sodium 143 mmol/L (136-145); Total Bilirubin 0.3 mg/dL (0.15-1.2); Total Protein 5.6 g/dL (6.6-8.7)
[2022-08-03] MEDS: regadenoson 0.4 Mg/5 ml Syringe IVP (08:04)
[2022-08-03] MEDS: venlafaxine ER (24HR) 150 mg Capsule PO (09:41)
[2022-08-03] MEDS: pantoprazole DR 40 mg Tablet PO (09:41)
[2022-08-03] MEDS: rivaroxaban 10 mg Tablet 20 MG PO (09:41)
[2022-08-03] MEDS: acetaminophen 325 mg Tablet 650 MG PO ×2 (09:49→22:35)
--- NOTE | 2022-08-03 10:14 | NMCV_ITS ---
NM dana perf SPECT r/s* [id number] Maria Teresa Woodruff Age: 87 Gender: F : 1935 Exam Date: 08/03/2022 07:07 Ordering Phys: Glenna Coelho MD ([email or web address]) Technologist: STEPHANIE Bailey Exam [facility]: [facility] Indications: CHEST PAIN STRESS TEST Please see separate stress test report in [facility] for full findings IMAGE PROTOCOL Rest/Stress 1 Lexiscan Day Radiopharmaceutical Dose (mCi) Administration Site Administered by Rest: Tc-99m 10.9 IV STEPHANIE Flores Sestamibi Stress:Tc-99m 32.9 IV STEPHANIE Flores Sestamibi Rest: 03-Aug-2022 60 Discovery 630 Stress: 03-Aug-2022 30 Discovery 630 0.4mg Lexiscan. Supine position only as patient was unable to lay prone. SPECT RESULTS Technical Quality: Excellent Raw Data Analysis: Normal Image Corrections: No attenuation or motion correction applied Summed Stress Score: 4 Summed Rest Score: 7 Summed Difference Score: 0 PERFUSION FINDINGS Moderate area of moderately decreased tracer uptake was noted in the basal and mid inferolateral and apical lateral regions. No significant reversibility was noted in these regions. Increased his uptake was noted in the right ventricular free wall. FUNCTIONAL RESULTS (calculated via Gated SPECT) Stress Image LV EF (%): 69 Stress EDV (mL):81 TID: 0.82 Stress ESV (mL):25 FUNCTIONAL FINDINGS: Segmental wall motion analysis revealing no gross wall motion normalities IMPRESSIONS 1. Myocardial perfusion imaging revealing moderate area of persistent decreased tracer uptake in the inferolateral and apical lateral regions suggesting myocardial scarring versus attenuation artifacts. 2. Normal LV ejection fraction of 69%. 3. LV wall motion analysis revealing no gross wall motion abnormalities. 4. Normal LV volume Low probability for coronary ischemia, based on the above findings Dr Glenna Coelho MD FACC (Electronically Signed) Final Date: 03 August 2022 13:29 S
--- NOTE | 2022-08-03 10:21 | PM.PN ---
Subjective Subjective: Patient went for stress test this AM. She is chest pain-free and feeling well. On baseline oxygen. She would like to go home. She states that she has a to attend this Wednesday and her recently had surgery. Awaiting results of stress test. She states she feels a lot better. Vitals/I&O/Wt Last Vital Signs Temp 97.4 F L 08/03/22 04:00 Pulse 82 08/03/22 08:24 Resp 16 08/03/22 04:00 BP 149/97 08/03/22 08:24 Pulse Ox 98 08/03/22 04:00 O2 Del Method 08/03/22 02:23 O2 Flow Rate 3 08/03/22 02:23 08/02/22 08/03/22 08/03/22 22:59 06:59 14:59 Intake Total 580 / 1820 Output Total 800 / 800 Balance 580 / 1820 -800 / -800 Weight last 48 hrs Weight 78.471 kg Physical Exam Narrative: General: No acute distress, AO x3, NC oxygen supplementation Chest:Bronchial breath sounds b/l,decreased air entry, equal good air entry bilaterally CVS: S1-S2 regular, no murmurs, no tachycardia, no gallops, no rubs Abdomen: Soft, nontender, no organomegaly, bowel sounds present, morbidly obese Neuro: No focal deficits Urinary Catheter Management: Latex: Cath Placed During This Visit: yes Urinary Catheter Date of Insertion: 08/01/22 Urinary Catheter Time of Insertion: 15:11 Data : 08/03/22 04:31 08/03/22 04:31 Micro: Microbiology 08/01/22 16:11 Bacterial Antigens - Final Urine Kidney 08/01/22 17:40 MRSA Culture - Final Nose A&P Assessment and plan (1) Acute kidney injury: (2) Hypoxia: (3) Diastolic heart failure: (4) History of pulmonary embolism: (5) COPD (chronic obstructive pulmonary disease): (6) Pulmonary hypertension: (7) Atrial arrhythmia: (8) Elevated troponin: Plan 87-year-old lady with past medical history of COPD at baseline on Trelegy, DVT, pulm embolism on Xarelto presents to the ER today because of decreased oral intake, nausea and vomiting going on for last 1 week with decreased urine output for last 24 hours found to be hypoxic down to mid 80s and found to be in acute kidney injury on blood work. Acute kidney injury: Most likely secondary to a combination of dehydration from poor oral intake and new Lasix which was started few days ago versus CRS from possible diastolic heart failure. Patient was started on normal saline 50 cc/h. I can stop fluids now. Creatinine is normalized. 0.[address] abdomen pelvis to rule out obstructive nephropathy. Monitor urine output. Small catheter placed in the ER. 800 cc out. Stop Small catheter today Voiding trial today Medical reconciliation done for nephrotoxic drugs. Monitor BMP daily for now. Hypoxia: Most likely secondary to COPD exacerbation. Patient has a history of diastolic heart failure and pulmonary embolism in the past. Seems dehydrated currently. Not compliant with Trelegy for last 1 week. Oxygen supplementation keeping saturation over 88%. DuoNebs every 6 hour, budesonide twice daily. Hold starting steroids for now. If does not improve within next 24 hours we will start on Solu-Medrol. Nausea/vomiting: Lipase normal. Could be secondary to acute kidney injury and uremia. CT abdomen pelvis will rule out other etiologies as well. Cycle troponins to rule out ACS. Patient denies any chest pain. Zofran as needed, Protonix Gi soft diet. Elevated troponins: ACS unlikely as patient does not have any active chest pain. Most likely type II VT secondary to acute kidney injury. Echocardiogram done shows an EF of 57%, biatrial enlargement, moderate TR, severe pulmonary hypertension. Stress test today. Awaiting results. Bradycardia: Heart rate running in 50s. Hold off on home dose of metoprolol. Seems her history of bradycardia in the past as well. Telemetry. History of DVT/pulmonary embolism/IVC filter: Continue home dose of Xarelto. Will change as per creatinine clearance. Continue other chronic medications including atorvastatin, gabapentin, hydrocodone Analgesia: Tylenol as needed, home dose of [place] every 6 hour Glycemic control: Not needed. A1c. Nutrition: Full liquid diet CODE STATUS: Discussed in detail with patient. DNR/DNI. PUD prophylaxis: Protonix for PUD prophylaxis DVT prophylaxis: Home dose of Xarelto will suffice as DVT prophylaxis Discharge planning: Back home with caregiver once medically stable. Admit to [facility] with telemetry. Plan for the day: Stop small, voiding trial await results of stress test to decide on further care plan advance diet to GI soft check home o2 eval. This documentation was created by [employer] app[employer]quer zigzag software. Every effort was made to ensure accuracy of [employer] zigzag. Any obvious errors or omissions should be clarified with the author of the document. Attestations Medical Necessity Statement*: Await results of stress test Coding Level of Care Code Acute Double Needle Stitcher for [employer] Fwd Diagnoses Acute kidney injury N17.9 Hypoxia R09.02 Diastolic heart failure I50.30 History of pulmonary embolism Z86.711 COPD (chronic obstructive pulmonary disease) J44.9 Pulmonary hypertension I27.20 Atrial arrhythmia I49.8 Elevated troponin R77.8
--- NOTE | 2022-08-03 14:09 | PM.PN ---
Subjective Subjective: Patient had the Myocardial perfusion imaging today. She was found to have no evidence of ischemia, based on the perfusion scan. Medications: Medication Review Details: Current Medications Acetaminophen (Acetaminophen 325 Mg Tablet) 650 mg PO Q6H PRN PRN Reason: Mild/Mod Pain Or Temp >/= 101 Last Admin: 08/03/22 09:49 Dose: 650 mg Hydrocodone Bitart/Acetaminophen (Hydrocodone-Acetaminophen 5-325 Mg Tablet) 1 tab PO Q6H PRN PRN Reason: pain Last Admin: 08/02/22 17:23 Dose: 1 tab Al Hydrox/Mg Hydrox/Simethicone (Cnjw-Sin-[place]-Ethel 30 Ml Udc) 15 ml PO Q6H PRN PRN Reason: INDIGESTION Albuterol/Ipratropium (Ipratropium-Albuterol 3 Ml Neb) 3 ml INHALATION Q6H.RESP LV Last Admin: 08/03/22 08:42 Dose: Not Given Aminophylline (Aminophylline 25 Mg/Ml Sdv 10 Ml) 25 mg IVP Q2M PRN PRN Reason: see dose instructions Stop: 08/04/22 06:09 Atorvastatin Calcium (Atorvastatin 40 Mg Tablet) 40 mg PO BEDTIME LV Last Admin: 08/02/22 20:47 Dose: 40 mg Budesonide (Budesonide 0.5 Mg/2 Ml Neb) 0.5 mg INHALATION BID.RESPIRATORY LV Last Admin: 08/03/22 08:42 Dose: Not Given Docusate Sodium (Docusate Sodium 100 Mg Capsule) 100 mg PO BID LV Last Admin: 08/03/22 09:42 Dose: Not Given Gabapentin (Gabapentin 300 Mg Capsule) 600 mg PO BEDTIME LV Last Admin: 08/02/22 20:47 Dose: 600 mg Magnesium Hydroxide (Magnesium Hydroxide 30 Ml Udc) 30 ml PO DAILY PRN; Protocol PRN Reason: Constipation (see protocol) Nitroglycerin (Nitroglycerin 0.4 Mg Sublingual Tablet) 0.4 mg SUBLINGUAL Q5M PRN PRN Reason: CHEST PAIN Stop: 08/04/22 06:09 Ondansetron HCl (Ondansetron 2 Mg/Ml Sdv 2 Ml) 4 mg IVP Q8H PRN PRN Reason: vomiting, or N/V if npo Ondansetron HCl (Ondansetron 2 Mg/Ml Sdv 2 Ml) 4 mg IVP Q2M PRN PRN Reason: NAUSEA Pantoprazole Sodium (Pantoprazole Dr 40 Mg Tablet) 40 mg PO DAILY [facility] Last Admin: 08/03/22 09:41 Dose: 40 mg Rivaroxaban (Rivaroxaban 10 Mg Tablet) 20 mg PO DAILY [facility] Last Admin: 08/03/22 09:41 Dose: 20 mg Ropinirole HCl (Ropinirole 2 Mg Tablet) 4 mg PO BEDTIME [facility] Last Admin: 08/02/22 20:47 Dose: 4 mg Venlafaxine HCl (Venlafaxine Er (24hr) 150 Mg Capsule) 150 mg PO DAILY [facility] Last Admin: 08/03/22 09:41 Dose: 150 mg Vitals/I&O/Wt Last Vital Signs Temp 97.9 F 08/03/22 11:58 Pulse 75 08/03/22 11:58 Resp 18 08/03/22 11:58 BP 120/54 08/03/22 11:58 Pulse Ox 96 08/03/22 11:58 O2 Del Method 08/03/22 11:58 O2 Flow Rate 2 08/03/22 11:58 08/02/22 08/03/22 08/03/22 22:59 06:59 14:59 Intake Total 580 / 1820 920 / 920 Output Total 800 / 800 Balance 580 / 1820 120 / 120 Physical Exam Narrative: GENERAL: The patient is alert and oriented times three. Not in any acute distress. HEENT: Minimal pallor. No, icterus or lymphadenopathy.Oral cavity: There are no mucous membrane lesions. NECK: Trachea appears to be central. No masses noted. No JVD or thyromegaly appreciated. RESPIRATORY: Chest is symmetrical. No intercostals muscle retraction or any accessory muscle activation. There is no chest wall tenderness. Breath sounds are heard bilaterally. No rales or rhonchi heard. No evidence of any consolidation. BREASTS: Deferred. HEART: The first heart sound is variable. Second heart sound is normal. No S3 or S4. No significant murmurs. No pericardial rub ABDOMEN: No vessel pulsations or distention. No tenderness. No organomegaly appreciated. Bowel sounds are normally heard. : Deferred. RECTAL: Deferred. LYMPHATIC: No lymphadenopathy noted in the neck. EXTREMITIES: No edema or cyanosis. No clubbing. MUSCULOSKELETAL: No acute joint deformities or swelling SKIN: There are no significant rashes or ecchymosis NEUROPSYCHIATRIC: The patient is alert and oriented x3. Appears to be in a good mood. No tremors or rigidity noted. Urinary Catheter Management: Latex: Cath Placed During This Visit: yes Urinary Catheter Date of Insertion: 08/01/22 Urinary Catheter Time of Insertion: 15:11 Data : 08/03/22 04:31 08/03/22 04:31 Other Labs: Laboratory Last Values WBC 5.7 10^3/uL (4.0-10.0) 08/03/22 04:31 RBC 3.58 10^6/uL (4.1-5.3) L 08/03/22 04:31 Hgb 9.2 g/dL (11.5-15.3) L 08/03/22 04:31 Hct 34.0 % (37.0-47.0) L 08/03/22 04:31 MCV 95.0 fl (81-99) 08/03/22 04:31 MCH 25.7 pg (28.0-34.0) L 08/03/22 04:31 MCHC 27.1 g/dL (30.0-36.0) L 08/03/22 04:31 RDW 16.9 % (12.1-15.1) H 08/03/22 04:31 Plt Count 187 10^3/cmm (130-400) 08/03/22 04:31 MPV 9.6 fL (7.4-10.4) 08/03/22 04:31 Neut % (Auto) 64.4 % 08/03/22 04:31 Lymph % (Auto) 22.2 % 08/03/22 04:31 [place] % (Auto) 11.0 % 08/03/22 04:31 Eos % (Auto) 1.6 % 08/03/22 04:31 Baso % (Auto) 0.5 % 08/03/22 04:31 Neut # (Auto) 3.68 10^3/uL (1.8-7.7) 08/03/22 04:31 Lymph # (Auto) 1.3 10^3/uL (0.8-4.8) 08/03/22 04:31 [place] # (Auto) 0.6 10^3/uL (0.2-0.9) 08/03/22 04:31 Eos # (Auto) 0.1 10^3/uL (0.0-0.8) 08/03/22 04:31 Baso # (Auto) 0.0 10^3/uL (0.0-0.1) 08/03/22 04:31 Nucleated RBC % (auto) 0 % 08/03/22 04:31 Nucleated RBCs # 0.0 /100WBC 08/03/22 04:31 D-Dimer 3.61 ug/mIFEU (0-0.59) H 08/01/22 17:41 Sodium 143 mmol/L (136-145) 08/03/22 04:31 Potassium 4.2 mmol/L (3.5-5.1) 08/03/22 04:31 Chloride 104 mmol/L (98-107) 08/03/22 04:31 Carbon Dioxide 34 mmol/L (22-29) H 08/03/22 04:31 Anion Gap 9.2 (5-19) 08/03/22 04:31 BUN 20 mg/dL (8-23) 08/03/22 04:31 Creatinine 0.8 mg/dL (0.5-0.9) 08/03/22 04:31 GFR Calculation Not Reportable 08/03/22 04:31 Glucose 105 mg/dL (65-115) 08/03/22 04:31 Calculated Osmolality 299 mOsm/kg (285-295) H 08/03/22 04:31 Calcium 8.6 mg/dL (8.5-10.5) 08/03/22 04:31 Phosphorus 4.5 mg/dL (2.5-4.5) 08/02/22 01:47 Magnesium 1.8 mg/dL (1.7-2.3) 08/02/22 01:47 Iron 20 ug/dL (37-145) L 08/01/22 17:41 TIBC 359 mcg/dl 08/01/22 17:41 % Saturation 5.5 % (20-50) L 08/01/22 17:41 Unsat Iron Binding 339 ug/dL (112-347) 08/01/22 17:41 Total Bilirubin 0.3 mg/dL (0.15-1.2) 08/03/22 04:31 AST 26 U/L (0-32) 08/03/22 04:31 ALT 21 U/L (0-33) 08/03/22 04:31 Alkaline Phosphatase 194 U/L (35-105) H 08/03/22 04:31 Troponin T Baseline 305 ng/L (0-10) H* 08/01/22 17:41 Troponin T 120 Minute 305.5 ng/L (0-10) H 08/01/22 19:15 Delta Troponin T 0.5 ABS# (0-10) 08/01/22 19:15 Troponin T Hi Sens 6Hr 326.5 ng/L (0-10) H 08/01/22 23:38 Troponin T Hi Sens 6Hr Delta 21.5 ng/L (0-12) H* 08/01/22 23:38 NT-Pro-B Natriuret Pep 9025 pg/mL (0-450) H 08/01/22 14:15 Total Protein 5.6 g/dL (6.6-8.7) L 08/03/22 04:31 Albumin 3.2 g/dL (3.5-5.2) L 08/03/22 04:31 Globulin 2.4 g/dL (1.3-4.6) 08/03/22 04:31 Triglycerides 70 mg/dL (0-150) 08/02/22 01:47 Cholesterol 128 mg/dL (0-200) 08/02/22 01:47 LDL Cholesterol, Calc 63 mg/dL (50-129) 08/02/22 01:47 Total VLDL Cholesterol 14 mg/dL (0-30) 08/02/22 01:47 HDL Cholesterol 51 mg/dL (60-100) L 08/02/22 01:47 Cholesterol/HDL Ratio 2.51 mg/dL (0.0-4.40) 08/02/22 01:47 Vitamin B12 1500 pg/mL (232-1245) H 08/01/22 17:41 Folate < 20.0 ng/mL (4.8-37.3) 08/01/22 17:41 Procalcitonin 0.09 ng/mL (0-0.5) 08/01/22 17:41 TSH 0.44 uIU/mL (0.27-4.20) 08/01/22 17:41 Urine Color Yellow (Yellow) 08/01/22 17:35 Urine Appearance Clear (CLEAR) 08/01/22 17:35 Urine pH 5 (5-7) 08/01/22 17:35 Ur Specific [place] 1.010 (1.005-1.030) 08/01/22 17:35 Urine Protein Neg (Negative) 08/01/22 17:35 Urine Glucose (UA) Norm (Normal) 08/01/22 17:35 Urine Ketones Negative (Negative) 08/01/22 17:35 Urine Blood Neg (Negative) 08/01/22 17:35 Urine Nitrate Negative (Negative) 08/01/22 17:35 Urine Bilirubin Neg (Negative) 08/01/22 17:35 Urine Urobilinogen Neg mg/dL (Negative) 08/01/22 17:35 Ur Leukocyte Esterase Negative (Negative) 08/01/22 17:35 Ur Eosinophil Smear 0 (0-0) 08/01/22 16:11 Urine Eosinophils No eosinophils seen 08/01/22 16:11 Ur Random Sodium 103 mmol/L 08/01/22 17:35 Ur Random Potassium 18 mmol/L 08/01/22 17:35 Ur Random Chloride 115 mmol/L 08/01/22 17:35 Urine Creatinine 126 mg/dL (28-217) 08/01/22 16:11 Coronavirus 229E (PCR) Not detected (NOT DETECT) 08/01/22 17:35 SARS-CoV-2 (PCR) Not detected (NOT DETECT) 08/01/22 17:35 Micro: Microbiology 08/01/22 16:11 Bacterial Antigens - Final Urine Kidney 08/01/22 17:40 MRSA Culture - Final Nose A&P Assessment and plan (1) Elevated troponin: Most likely is related to the atrial fibrillation. She has no chest pain. The Myocardial perfusion imaging results are discussed with the patient and her in detail which they understood well. At this point, she may not require any further investigations. The limitations of the test also were discussed which is understood well. (2) Atrial arrhythmia: Patient is found to have multifocal atrial rhythm in the hospital. She has a questionable history of atrial fibrillation. She has biatrial enlargement based on echocardiogram. It is possible that she may have intermittent atrial fibrillation. (3) Chronic diastolic heart failure: She has a history of diastolic heart failure. Currently the heart failure seems to be fairly compensated. (4) Venous thromboembolism: Patient is known to have DVT and pulmonary embolism. She had an IVC filter placement. She is on long-term oral anticoagulation. This may be continued. (5) Benign hypertension: Currently the blood pressure is under control. May continue on the current medications. (6) Pulmonary hypertension: Pain seems to have severe pulmonary hypertension. This could be multifactorial. She apparently had a complicated COVID-19 infection. The pulmonary embolism also could be a contributing factor. She seems to be tolerating the Procardia XL, so far well. Plan Other problems are Chronic anemia Pulmonary nodule -increasing size,? Malignancy Adrenal nodule Degenerative joint disease Obstructive sleep apnea Dyslipidemia If the patient continues remain stable, may be discharged home from a cardiac standpoint. Attestations Medical Necessity Statement*: Defer to the primary attending Coding Level of Care Code Acute Fire Sprinkler Fitter for Chg Fwd History Expanded Problem Focused Exam Expanded Problem Focused Medical Decision Making Moderate Complexity Diagnoses Elevated troponin R77.8 Atrial arrhythmia I49.8 Chronic diastolic heart failure I50.32 Venous thromboembolism I82.90 Benign hypertension I10 Pulmonary hypertension I27.20
--- NOTE | 2022-08-03 14:10 | PC.NURSE ---
small catheter removed per Dr chance voiding trial.
[2022-08-03] MEDS: docusate sodium 100 mg Capsule PO (19:06)
[2022-08-03] MEDS: budesonide 0.5 mg/2 mL Neb INHALATION (20:44)
[2022-08-03] MEDS: ropinirole 2 mg Tablet 4 MG PO (21:13)
[2022-08-03] MEDS: gabapentin 300 mg Capsule 600 MG PO (21:14)
[2022-08-03] MEDS: sodium chloride 0.9% 250 ML IV (21:14)
[2022-08-03] MEDS: atorvastatin 40 mg Tablet PO (21:14)
[2022-08-04] VITALS (10 sets, daily range): BP systolic 137–161; BP diastolic 50–83; PULSE 75–87; RESP 16–24; TEMP 36.3–36.8; O2SAT 93–98
[2022-08-04] MEDS: ipratropium-albuterol 3 mL Neb INHALATION ×2 (01:26→07:51)
[2022-08-04] MEDS: budesonide 0.5 mg/2 mL Neb INHALATION (07:51)
[2022-08-04] MEDS: rivaroxaban 10 mg Tablet 20 MG PO (08:25)
[2022-08-04] MEDS: pantoprazole DR 40 mg Tablet PO (08:26)
[2022-08-04] MEDS: docusate sodium 100 mg Capsule PO (08:26)
[2022-08-04] MEDS: venlafaxine ER (24HR) 150 mg Capsule PO (09:19)
--- NOTE | 2022-08-04 09:40 | PM.PN ---
Subjective Subjective: Patient continues remain stable. Ambulating on telemetry with no significant issues. Telemetry shows sinus rhythm/multifocal atrial rhythm. Vital signs stable. Medications: Medication Review Details: Current Medications Acetaminophen (Acetaminophen 325 Mg Tablet) 650 mg PO Q6H PRN PRN Reason: Mild/Mod Pain Or Temp >/= 101 Last Admin: 08/03/22 22:35 Dose: 650 mg Hydrocodone Bitart/Acetaminophen (Hydrocodone-Acetaminophen 5-325 Mg Tablet) 1 tab PO Q6H PRN PRN Reason: pain Last Admin: 08/02/22 17:23 Dose: 1 tab Al Hydrox/Mg Hydrox/Simethicone (Fuob-Hnr-Wanzemfvp-Ethel 30 Ml Udc) 15 ml PO Q6H PRN PRN Reason: INDIGESTION Albuterol/Ipratropium (Ipratropium-Albuterol 3 Ml Neb) 3 ml INHALATION Q6H.RESP LV Last Admin: 08/04/22 07:51 Dose: 3 ml Atorvastatin Calcium (Atorvastatin 40 Mg Tablet) 40 mg PO BEDTIME LV Last Admin: 08/03/22 21:14 Dose: 40 mg Budesonide (Budesonide 0.5 Mg/2 Ml Neb) 0.5 mg INHALATION BID.RESPIRATORY LV Last Admin: 08/04/22 07:51 Dose: 0.5 mg Docusate Sodium (Docusate Sodium 100 Mg Capsule) 100 mg PO BID LV Last Admin: 08/04/22 08:26 Dose: 100 mg Gabapentin (Gabapentin 300 Mg Capsule) 600 mg PO BEDTIME LV Last Admin: 08/03/22 21:14 Dose: 600 mg Magnesium Hydroxide (Magnesium Hydroxide 30 Ml Udc) 30 ml PO DAILY PRN; Protocol PRN Reason: Constipation (see protocol) Ondansetron HCl (Ondansetron 2 Mg/Ml Sdv 2 Ml) 4 mg IVP Q8H PRN PRN Reason: vomiting, or N/V if npo Ondansetron HCl (Ondansetron 2 Mg/Ml Sdv 2 Ml) 4 mg IVP Q2M PRN PRN Reason: NAUSEA Pantoprazole Sodium (Pantoprazole Dr 40 Mg Tablet) 40 mg PO DAILY [facility] Last Admin: 08/04/22 08:26 Dose: 40 mg Rivaroxaban (Rivaroxaban 10 Mg Tablet) 20 mg PO DAILY [facility] Last Admin: 08/04/22 08:25 Dose: 20 mg Ropinirole HCl (Ropinirole 2 Mg Tablet) 4 mg PO BEDTIME [facility] Last Admin: 08/03/22 21:13 Dose: 4 mg Venlafaxine HCl (Venlafaxine Er (24hr) 150 Mg Capsule) 150 mg PO DAILY [facility] Last Admin: 08/04/22 09:19 Dose: 150 mg Vitals/I&O/Wt Last Vital Signs Temp 98.2 F 08/04/22 07:34 Pulse 81 08/04/22 07:56 Resp 18 08/04/22 07:53 BP 161/83 08/04/22 07:34 Pulse Ox 98 08/04/22 07:53 O2 Del Method 08/04/22 07:53 O2 Flow Rate 2 08/04/22 07:53 08/03/22 08/04/22 08/04/22 22:59 06:59 14:59 Intake Total 850 / 2130 Output Total 200 / 1150 230 / 230 Balance 650 / 980 -230 / -230 Physical Exam Narrative: GENERAL: The patient is alert and oriented times three. Not in any acute distress. HEENT: No significant pallor, icterus or lymphadenopathy.Oral cavity: There are no mucous membrane lesions. NECK: Trachea appears to be central. No masses noted. No JVD or thyromegaly appreciated. RESPIRATORY: Chest is symmetrical. No intercostals muscle retraction or any accessory muscle activation. There is no chest wall tenderness. Breath sounds are heard bilaterally. No rales or rhonchi heard. No evidence of any consolidation. BREASTS: Deferred. HEART: The heart sounds are normal. No S3 or S4. Short systolic murmur in the left sternal border. No pericardial rub ABDOMEN: No vessel pulsations or distention. No tenderness. No organomegaly appreciated. Bowel sounds are normally heard. : Deferred. RECTAL: Deferred. LYMPHATIC: No lymphadenopathy noted in the neck. EXTREMITIES: No edema or cyanosis. No clubbing. MUSCULOSKELETAL: No acute joint deformities or swelling SKIN: There are no significant rashes or ecchymosis NEUROPSYCHIATRIC: The patient is alert and oriented x3. Appears to be in a good mood. No tremors or rigidity noted. Urinary Catheter Management: Latex: Cath Placed During This Visit: yes Urinary Catheter Date of Insertion: 08/01/22 Urinary Catheter Time of Insertion: 15:11 Data : 08/03/22 04:31 08/03/22 04:31 Other Labs: Laboratory Last Values WBC 5.7 10^3/uL (4.0-10.0) 08/03/22 04:31 RBC 3.58 10^6/uL (4.1-5.3) L 08/03/22 04:31 Hgb 9.2 g/dL (11.5-15.3) L 08/03/22 04:31 Hct 34.0 % (37.0-47.0) L 08/03/22 04:31 MCV 95.0 fl (81-99) 08/03/22 04:31 MCH 25.7 pg (28.0-34.0) L 08/03/22 04:31 MCHC 27.1 g/dL (30.0-36.0) L 08/03/22 04:31 RDW 16.9 % (12.1-15.1) H 08/03/22 04:31 Plt Count 187 10^3/cmm (130-400) 08/03/22 04:31 MPV 9.6 fL (7.4-10.4) 08/03/22 04:31 Neut % (Auto) 64.4 % 08/03/22 04:31 Lymph % (Auto) 22.2 % 08/03/22 04:31 [place] % (Auto) 11.0 % 08/03/22 04:31 Eos % (Auto) 1.6 % 08/03/22 04:31 Baso % (Auto) 0.5 % 08/03/22 04:31 Neut # (Auto) 3.68 10^3/uL (1.8-7.7) 08/03/22 04:31 Lymph # (Auto) 1.3 10^3/uL (0.8-4.8) 08/03/22 04:31 [place] # (Auto) 0.6 10^3/uL (0.2-0.9) 08/03/22 04:31 Eos # (Auto) 0.1 10^3/uL (0.0-0.8) 08/03/22 04:31 Baso # (Auto) 0.0 10^3/uL (0.0-0.1) 08/03/22 04:31 Nucleated RBC % (auto) 0 % 08/03/22 04:31 Nucleated RBCs # 0.0 /100WBC 08/03/22 04:31 D-Dimer 3.61 ug/mIFEU (0-0.59) H 08/01/22 17:41 Sodium 143 mmol/L (136-145) 08/03/22 04:31 Potassium 4.2 mmol/L (3.5-5.1) 08/03/22 04:31 Chloride 104 mmol/L (98-107) 08/03/22 04:31 Carbon Dioxide 34 mmol/L (22-29) H 08/03/22 04:31 Anion Gap 9.2 (5-19) 08/03/22 04:31 BUN 20 mg/dL (8-23) 08/03/22 04:31 Creatinine 0.8 mg/dL (0.5-0.9) 08/03/22 04:31 GFR Calculation Not Reportable 08/03/22 04:31 Glucose 105 mg/dL (65-115) 08/03/22 04:31 Calculated Osmolality 299 mOsm/kg (285-295) H 08/03/22 04:31 Calcium 8.6 mg/dL (8.5-10.5) 08/03/22 04:31 Phosphorus 4.5 mg/dL (2.5-4.5) 08/02/22 01:47 Magnesium 1.8 mg/dL (1.7-2.3) 08/02/22 01:47 Iron 20 ug/dL (37-145) L 08/01/22 17:41 TIBC 359 mcg/dl 08/01/22 17:41 % Saturation 5.5 % (20-50) L 08/01/22 17:41 Unsat Iron Binding 339 ug/dL (112-347) 08/01/22 17:41 Total Bilirubin 0.3 mg/dL (0.15-1.2) 08/03/22 04:31 AST 26 U/L (0-32) 08/03/22 04:31 ALT 21 U/L (0-33) 08/03/22 04:31 Alkaline Phosphatase 194 U/L (35-105) H 08/03/22 04:31 Troponin T Baseline 305 ng/L (0-10) H* 08/01/22 17:41 Troponin T 120 Minute 305.5 ng/L (0-10) H 08/01/22 19:15 Delta Troponin T 0.5 ABS# (0-10) 08/01/22 19:15 Troponin T Hi Sens 6Hr 326.5 ng/L (0-10) H 08/01/22 23:38 Troponin T Hi Sens 6Hr Delta 21.5 ng/L (0-12) H* 08/01/22 23:38 NT-Pro-B Natriuret Pep 9025 pg/mL (0-450) H 08/01/22 14:15 Total Protein 5.6 g/dL (6.6-8.7) L 08/03/22 04:31 Albumin 3.2 g/dL (3.5-5.2) L 08/03/22 04:31 Globulin 2.4 g/dL (1.3-4.6) 08/03/22 04:31 Triglycerides 70 mg/dL (0-150) 08/02/22 01:47 Cholesterol 128 mg/dL (0-200) 08/02/22 01:47 LDL Cholesterol, Calc 63 mg/dL (50-129) 08/02/22 01:47 Total VLDL Cholesterol 14 mg/dL (0-30) 08/02/22 01:47 HDL Cholesterol 51 mg/dL (60-100) L 08/02/22 01:47 Cholesterol/HDL Ratio 2.51 mg/dL (0.0-4.40) 08/02/22 01:47 Vitamin B12 1500 pg/mL (232-1245) H 08/01/22 17:41 Folate < 20.0 ng/mL (4.8-37.3) 08/01/22 17:41 Procalcitonin 0.09 ng/mL (0-0.5) 08/01/22 17:41 TSH 0.44 uIU/mL (0.27-4.20) 08/01/22 17:41 Urine Color Yellow (Yellow) 08/01/22 17:35 Urine Appearance Clear (CLEAR) 08/01/22 17:35 Urine pH 5 (5-7) 08/01/22 17:35 Ur Specific [place] 1.010 (1.005-1.030) 08/01/22 17:35 Urine Protein Neg (Negative) 08/01/22 17:35 Urine Glucose (UA) Norm (Normal) 08/01/22 17:35 Urine Ketones Negative (Negative) 08/01/22 17:35 Urine Blood Neg (Negative) 08/01/22 17:35 Urine Nitrate Negative (Negative) 08/01/22 17:35 Urine Bilirubin Neg (Negative) 08/01/22 17:35 Urine Urobilinogen Neg mg/dL (Negative) 08/01/22 17:35 Ur Leukocyte Esterase Negative (Negative) 08/01/22 17:35 Ur Eosinophil Smear 0 (0-0) 08/01/22 16:11 Urine Eosinophils No eosinophils seen 08/01/22 16:11 Ur Random Sodium 103 mmol/L 08/01/22 17:35 Ur Random Potassium 18 mmol/L 08/01/22 17:35 Ur Random Chloride 115 mmol/L 08/01/22 17:35 Urine Creatinine 126 mg/dL (28-217) 08/01/22 16:11 Coronavirus 229E (PCR) Not detected (NOT DETECT) 08/01/22 17:35 SARS-CoV-2 (PCR) Not detected (NOT DETECT) 08/01/22 17:35 A&P Assessment and plan (1) Elevated troponin: Most likely is related to the atrial fibrillation. She has no chest pain. The Myocardial perfusion imaging results are discussed with the patient and her in detail which they understood well. At this point, she may not require any further investigations. The limitations of the test also were discussed which is understood well. (2) Atrial arrhythmia: Patient is found to have multifocal atrial rhythm in the hospital. Patient is known to have intermittent atrial fibrillation. May continue on the current medications (3) Chronic diastolic heart failure: She has a history of diastolic heart failure. Currently the heart failure seems to be fairly compensated. (4) Venous thromboembolism: Patient is known to have DVT and pulmonary embolism. She had an IVC filter placement. She is on long-term oral anticoagulation. This may be continued. (5) Benign hypertension: Currently the blood pressure is under control. May continue on the current medications. (6) Pulmonary hypertension: Pain seems to have severe pulmonary hypertension. This could be multifactorial. She apparently had a complicated COVID-19 infection. The pulmonary embolism also could be a contributing factor. She seems to be tolerating the Procardia XL, so far well. Plan Other problems are Chronic anemia Pulmonary nodule -increasing size,? Malignancy Adrenal nodule Degenerative joint disease Obstructive sleep apnea Dyslipidemia Appointment at the [facility] to be seen by the nurse practitioner in 2 weeks Appointment with me in the office in 2 months Attestations Medical Necessity Statement*: Possible discharge home today Coding Level of Care Code Acute Project Manager Finance for Chg Fwd History Expanded Problem Focused Exam Expanded Problem Focused Medical Decision Making Low Complexity Diagnoses Elevated troponin R77.8 Atrial arrhythmia I49.8 Chronic diastolic heart failure I50.32 Venous thromboembolism I82.90 Benign hypertension I10 Pulmonary hypertension I27.20
--- NOTE | 2022-08-04 10:12 | PC.SOCIAL ---
Pg 2 IMM Explained to pt Pg 2 IMM. No questions voiced. Provided pt a copy. Initialed, dated, & timed a copy & placed in chart.
--- NOTE | 2022-08-04 10:50 | P.DS_ITS ---
Discharge Providers Date of Admission: 08/01/22 15:21 Date of Discharge: August 04, 2022 Attending Provider at Admission: Jose Julien MD Attending Provider at Discharge: Maria Guadalupe Campbell MD Primary Care Provider: June Merchant Diagnoses at Discharge Discharge Diagnosis (1) Elevated troponin: Status: Acute (2) Atrial arrhythmia: Status: Acute (3) Chronic diastolic heart failure: Status: Deleted (4) Venous thromboembolism: Status: Deleted (5) Benign hypertension: Status: Deleted (6) Pulmonary hypertension: Status: Acute Reason for Visit Reason for Visit: Uable to urinate Brief History: As per Dr. Faustin Maria Teresa Woodruff is a 87 year old female with history of DVT, PE s/p IVC filter, on anticoagulation with Xarelto, atrial fibrillation, back surgery, hip surgery 3 weeks ago, COPD on chronic 2 L nasal cannula and trelegy , diastolic HF presents to ER today with c/o N/V, decreased oral intake and decreased urine output. As per patient her spouse underwent surgery a week ago and since then she has not been taking care of herself. Her oral intake has decreased along with nausea and few episodes of diarrhea. She was having lower limb swelling so she was given lasix 20 mg oral by her PCP 3 days ago. She took 3 tabs and her urine output decreased yesterday so she presented to ER today. Denies any SOB, cough, headache, CP, dizziness. She has not been using her trelegy lately. In the ER she was found to have saturation in mid 80s on RA which improved to more than 90 on 2l, in MARIANNE with creat of 2.0 , small was placed and she was given 60 mg of IV lasix. Hospital Course Hospital Course Patient presented with acute kidney injury and not being able to urinate. She was given fluids. This was with combination of dehydration and poor oral intake with new Lasix that was started few days ago. I told patient to hold off on Lasix at this time. He stated that she was not eating or drinking at all and was not taking care of herself. She was focused on her as he was in the hospital. She was quite dehydrated when she presented. At discharge she was able to eat, drink, urinate on her own. She had good robust urine output. Due to elevation of troponins cardiology was also consulted. Patient most likely had a type II demand ischemia NSTEMI. She had a stress test on which did not show evidence of ischemia. Patient discharged home in stable condition to [facility]-up with cardiology and her primary care doctor as an outpatient. She was asked to hold off on the Lasix and to resume in 42 to 72 hours depending on how she is doing. Patient demonstrated understanding. Also complained of an esophageal stricture she has from long ago. She stated she did not want any study to be done as an inpatient for this. Barium swallow was also offered but she declined at this time. He stated she would like to follow-up with an outpatient appointment for possible EGD. She was given a referral. Patient was able to tolerate GI soft diet in the hospital without any episodes of choking. Lastly patient stated that she is noncompliant to her oxygen at home and she only needs it when she thinks she needs it. I advised her to keep 2 L nasal cannula on at all times and be compliant with her Trelegy. Physical Exam Narrative: General: No acute distress, AO x3, NC oxygen supplementation Chest:Bronchial breath sounds b/l,decreased air entry, equal good air entry bilaterally CVS: S1-S2 regular, no murmurs, no tachycardia, no gallops, no rubs Abdomen: Soft, nontender, no organomegaly, bowel sounds present, morbidly obese Neuro: No focal deficits Urinary Catheter Management: Latex: Cath Placed During This Visit: yes Urinary Catheter Date of Insertion: 08/01/22 Urinary Catheter Time of Insertion: 15:11 Discharge Data Studies Completed and Pending Completed Studies During Hospitalization Category Date Time Status CT chest abdomen pelvis [[place] [id number] Cat Scan 08/01/22 17:06 Completed ] Routine Sestamibi Stress Test Request Routine Exams 08/03/22 06:15 Draft XR chest 1V portable [id number] Stat Exams 08/01/22 13:55 Completed NM dana perf SPECT r/s* [id number] Routine Nuc Med 08/03/22 10:14 Completed CV. echo complete* [id number] Stat Ultrasound 08/01/22 20:33 Completed Pending at discharge Category Date Time Status Cardiac Stress Test MIBI [Sestamibi Stress Test Request Exams 08/02/22 10:13 Ordered ] Routine Sestamibi Stress Test Request Routine Exams 08/02/22 10:06 Stop Req Radiology Impressions Chest X-Ray 08/01/22 13:55 IMPRESSION: No acute findings. Chest/Abdomen/Pelvis CT 08/01/22 17:06 IMPRESSION: 1. Small volume right pleural effusion. 2. Spiculated 1.5 cm nodule in the left lower lobe. This has increased in size from 10/02/2021 study measuring 1 cm at that time. This is suspicious for a primary lung malignancy. Consider PET-CT or tissue sampling for further evaluation. IMPRESSION: No acute findings. COMMENTS: 1. For patients with an IVC filter, recommend assessment for a management plan for the patient's IVC filter. If there is no established management plan, recommend referral to an interventional clinician on a nonemergent basis for evaluation. 2. Consistent with the [employer]'s Incidental Findings Committee white paper (J Am Mckay Radiol 2018): Any incidental renal lesion less than 1 cm or classified as too small to characterize, or any incidental cystic renal lesion characterized as simple-appearing, is likely benign. No follow-up imaging is recommended for these lesions per consensus recommendations based on imaging criteria. Laboratory Results WBC 5.7 10^3/uL (4.0-10.0) 08/03/22 04:31 RBC 3.58 10^6/uL (4.1-5.3) L 08/03/22 04:31 Hgb 9.2 g/dL (11.5-15.3) L 08/03/22 04:31 Hct 34.0 % (37.0-47.0) L 08/03/22 04:31 MCV 95.0 fl (81-99) 08/03/22 04:31 MCH 25.7 pg (28.0-34.0) L 08/03/22 04:31 MCHC 27.1 g/dL (30.0-36.0) L 08/03/22 04:31 RDW 16.9 % (12.1-15.1) H 08/03/22 04:31 Plt Count 187 10^3/cmm (130-400) 08/03/22 04:31 MPV 9.6 fL (7.4-10.4) 08/03/22 04:31 Neut % (Auto) 64.4 % 08/03/22 04:31 Lymph % (Auto) 22.2 % 08/03/22 04:31 [place] % (Auto) 11.0 % 08/03/22 04:31 Eos % (Auto) 1.6 % 08/03/22 04:31 Baso % (Auto) 0.5 % 08/03/22 04:31 Neut # (Auto) 3.68 10^3/uL (1.8-7.7) 08/03/22 04:31 Lymph # (Auto) 1.3 10^3/uL (0.8-4.8) 08/03/22 04:31 [place] # (Auto) 0.6 10^3/uL (0.2-0.9) 08/03/22 04:31 Eos # (Auto) 0.1 10^3/uL (0.0-0.8) 08/03/22 04:31 Baso # (Auto) 0.0 10^3/uL (0.0-0.1) 08/03/22 04:31 Nucleated RBC % (auto) 0 % 08/03/22 04:31 Nucleated RBCs # 0.0 /100WBC 08/03/22 04:31 D-Dimer 3.61 ug/mIFEU (0-0.59) H 08/01/22 17:41 Sodium 143 mmol/L (136-145) 08/03/22 04:31 Potassium 4.2 mmol/L (3.5-5.1) 08/03/22 04:31 Chloride 104 mmol/L (98-107) 08/03/22 04:31 Carbon Dioxide 34 mmol/L (22-29) H 08/03/22 04:31 Anion Gap 9.2 (5-19) 08/03/22 04:31 BUN 20 mg/dL (8-23) 08/03/22 04:31 Creatinine 0.8 mg/dL (0.5-0.9) 08/03/22 04:31 GFR Calculation Not Reportable 08/03/22 04:31 Glucose 105 mg/dL (65-115) 08/03/22 04:31 Calculated Osmolality 299 mOsm/kg (285-295) H 08/03/22 04:31 Calcium 8.6 mg/dL (8.5-10.5) 08/03/22 04:31 Phosphorus 4.5 mg/dL (2.5-4.5) 08/02/22 01:47 Magnesium 1.8 mg/dL (1.7-2.3) 08/02/22 01:47 Iron 20 ug/dL (37-145) L 08/01/22 17:41 TIBC 359 mcg/dl 08/01/22 17:41 % Saturation 5.5 % (20-50) L 08/01/22 17:41 Unsat Iron Binding 339 ug/dL (112-347) 08/01/22 17:41 Total Bilirubin 0.3 mg/dL (0.15-1.2) 08/03/22 04:31 AST 26 U/L (0-32) 08/03/22 04:31 ALT 21 U/L (0-33) 08/03/22 04:31 Alkaline Phosphatase 194 U/L (35-105) H 08/03/22 04:31 Troponin T Baseline 305 ng/L (0-10) H* 08/01/22 17:41 Troponin T 120 Minute 305.5 ng/L (0-10) H 08/01/22 19:15 Delta Troponin T 0.5 ABS# (0-10) 08/01/22 19:15 Troponin T Hi Sens 6Hr 326.5 ng/L (0-10) H 08/01/22 23:38 Troponin T Hi Sens 6Hr Delta 21.5 ng/L (0-12) H* 08/01/22 23:38 NT-Pro-B Natriuret Pep 9025 pg/mL (0-450) H 08/01/22 14:15 Total Protein 5.6 g/dL (6.6-8.7) L 08/03/22 04:31 Albumin 3.2 g/dL (3.5-5.2) L 08/03/22 04:31 Globulin 2.4 g/dL (1.3-4.6) 08/03/22 04:31 Triglycerides 70 mg/dL (0-150) 08/02/22 01:47 Cholesterol 128 mg/dL (0-200) 08/02/22 01:47 LDL Cholesterol, Calc 63 mg/dL (50-129) 08/02/22 01:47 Total VLDL Cholesterol 14 mg/dL (0-30) 08/02/22 01:47 HDL Cholesterol 51 mg/dL (60-100) L 08/02/22 01:47 Cholesterol/HDL Ratio 2.51 mg/dL (0.0-4.40) 08/02/22 01:47 Vitamin B12 1500 pg/mL (232-1245) H 08/01/22 17:41 Folate < 20.0 ng/mL (4.8-37.3) 08/01/22 17:41 Procalcitonin 0.09 ng/mL (0-0.5) 08/01/22 17:41 TSH 0.44 uIU/mL (0.27-4.20) 08/01/22 17:41 Urine Color Yellow (Yellow) 08/01/22 17:35 Urine Appearance Clear (CLEAR) 08/01/22 17:35 Urine pH 5 (5-7) 08/01/22 17:35 Ur Specific [place] 1.010 (1.005-1.030) 08/01/22 17:35 Urine Protein Neg (Negative) 08/01/22 17:35 Urine Glucose (UA) Norm (Normal) 08/01/22 17:35 Urine Ketones Negative (Negative) 08/01/22 17:35 Urine Blood Neg (Negative) 08/01/22 17:35 Urine Nitrate Negative (Negative) 08/01/22 17:35 Urine Bilirubin Neg (Negative) 08/01/22 17:35 Urine Urobilinogen Neg mg/dL (Negative) 08/01/22 17:35 Ur Leukocyte Esterase Negative (Negative) 08/01/22 17:35 Ur Eosinophil Smear 0 (0-0) 08/01/22 16:11 Urine Eosinophils No eosinophils seen 08/01/22 16:11 Ur Random Sodium 103 mmol/L 08/01/22 17:35 Ur Random Potassium 18 mmol/L 08/01/22 17:35 Ur Random Chloride 115 mmol/L 08/01/22 17:35 Urine Creatinine 126 mg/dL (28-217) 08/01/22 16:11 Coronavirus 229E (PCR) Not detected (NOT DETECT) 08/01/22 17:35 SARS-CoV-2 (PCR) Not detected (NOT DETECT) 08/01/22 17:35 Vitals Last Vital Signs Temp 98.2 F 08/04/22 07:34 Pulse 81 08/04/22 07:56 Resp 18 08/04/22 07:53 BP 161/83 08/04/22 07:34 Pulse Ox 98 08/04/22 07:53 O2 Del Method 08/04/22 07:53 O2 Flow Rate 2 08/04/22 07:53 Discharge Plan Discharge Patient Disposition: Home Condition: Stable Prescriptions: Continued hydrocodone-acetaminophen 5-325 mg tablet 1 - 2 tab PO .Q4-6H PRN (Reason: pain) 7 Days Qty: 40 0RF potassium chloride 10 mEq capsule, extended release 10 meq PO BID ropinirole 4 mg tablet 4 mg PO BEDTIME venlafaxine 150 mg tablet extended release 24hr 150 mg PO DAILY ergocalciferol (vitamin D2) 1,250 mcg (50,000 unit) capsule 1,250 mcg PO Q7D Rx Instructions: (ON WEDNESDAY) clobetasol 0.05 % gel 1 applic topical DAILY pantoprazole [Protonix] 20 mg tablet,delayed release (DR/EC) 20 mg PO DAILY Qty: 20 4RF metoprolol tartrate 25 mg tablet 25 mg PO BID Qty: 60 2RF nitroglycerin 0.4 mg tablet, sublingual 0.4 mg sublingual Q5M PRN (Reason: chest pain) Qty: 25 0RF Rx Instructions: do not exceed 3 doses per episode atorvastatin 40 mg Tablet 40 mg PO BEDTIME Qty: 90 0RF ondansetron HCl 8 mg Tablet 8 mg PO Q8H PRN (Reason: Nausea) Vitamin C 500 mg Tablet 1,000 mg PO DAILY gabapentin 300 mg Capsule 600 mg PO BEDTIME zinc 50 mg Tablet 50 mg PO DAILY Held Lasix 20 mg Tablet 20 mg PO DAILY Hold Instructions: restart in 48 hours Rx Instructions: x 5 days then every other day No Action Xarelto 20 mg tablet 20 mg PO DAILY Qty: 30 0RF Hold Instructions: Resume on 10/22/21. Rx Instructions: must administer with evening meal 340b Discharge Orders: Discharge Order (Routine); Ordered 08/04/22 Ordered By: Maria Guadalupe Campbell Other Ambulatory Orders: Basic Metabolic Panel (Routine) Timeframe: 1 Week Facility: [facility] - Location: Lab - Main Lab Ordered By: Maria Guadalupe Campbell Referrals: Chris Toure MD [Physician] - 08/13/22 3:00 pm June Merchant [Primary Care Provider] - 08/11/22 11:00 am ( ) Evette Nash FNP [Nurse Practitioner] - 08/11/22 10:30 am Discharge Diet: Cardiac Discharge Activity: Resume usual activity and Oxygen as instructed Patient Instructions: Acute Kidney Injury (GEN), Using Oxygen at Home (GEN), Hypoxia (GEN), Opioid Safety Activity Restrictions/Additional Instructions: Please continue to use your home oxygen as directed. Please be compliant with [facility]. Discharge Attestations Time Spent in Discharge Care*: less than 30 min Quality Metrics Clinical Quality Measures [ No reported AMI, CVA or VTE this stay] Coding Level of Care Code Acute Chg FW DC note Diagnoses Elevated troponin R77.8 Atrial arrhythmia I49.8 Chronic diastolic heart failure I50.32 Venous thromboembolism I82.90 Benign hypertension I10 Pulmonary hypertension I27.20
--- NOTE | 2022-08-04 12:54 | PC.NURSE ---
Patient was discharged at 1215 pm via wheelchair with . IV removed and intact. Patient was given instructions and education and verbalized understanding.
== END 2022-08-04 12:15 | disposition home or self-care (01) | DRG 682 ==
LOC: ER 15:24 → MEDSURG 16:02
PROVIDERS: Admitting Provider Student in an Organized Health Care Education/Training Program; Emergency Provider Family Medicine; PCP Nurse Practitioner Family; Visit Provider Internal Medicine
DX: N17.9 Acute kidney failure, unspecified (principal); I21.A1 Myocardial infarction type 2; J44.1 Chronic obstructive pulmonary disease with (acute) exacerbation; I50.32 Chronic diastolic (congestive) heart failure; E86.0 Dehydration; I11.0 Hypertensive heart disease with heart failure; I48.91 Unspecified atrial fibrillation; R09.02 Hypoxemia; I27.20 Pulmonary hypertension, unspecified; I25.10 Atherosclerotic heart disease of native coronary artery without angina pectoris; E78.5 Hyperlipidemia, unspecified; G25.81 Restless legs syndrome; M54.16 Radiculopathy, lumbar region; D64.9 Anemia, unspecified; R91.1 Solitary pulmonary nodule; E27.9 Disorder of adrenal gland, unspecified; R11.2 Nausea with vomiting, unspecified; R00.1 Bradycardia, unspecified; G47.33 Obstructive sleep apnea (adult) (pediatric); Z86.718 Personal history of other venous thrombosis and embolism; Z79.01 Long term (current) use of anticoagulants; Z86.711 Personal history of pulmonary embolism; Z98.890 Other specified postprocedural states; Z99.81 Dependence on supplemental oxygen; Z95.5 Presence of coronary angioplasty implant and graft; Z79.891 Long term (current) use of opiate analgesic; Z86.16 Personal history of COVID-19; Z66 Do not resuscitate
CPT/HCPCS: 36415; 51702; 51798; 71045; 71250; 74176; 78452; 80048; 80053; 80061; 81003; 82436; 82570; 82607; 82746; 83540; 83550; 83735; 83880; 84100; 84133; 84145; 84300; 84443; 84484; 85025; 85378; 85999; 86403; 87449; 87635; 87641; 93005; 93017; 93306; 94640; 94760; 99285; A9500; J1940; J2785; J7030; J7050; J7626

== ENCOUNTER → 2022-08-11 10:29 | Outpatient (BNVA) | payer MEDICARE, SELFPAY | PROVIDERS: PCP Nurse Practitioner Family; Visit Provider Nurse Practitioner Family | DX: I11.0 Hypertensive heart disease with heart failure (principal); I50.30 Unspecified diastolic (congestive) heart failure; Z87.891 Personal history of nicotine dependence; I27.20 Pulmonary hypertension, unspecified | CPT/HCPCS: 99214 ==

== ENCOUNTER → 2022-08-13 14:35 | Outpatient (BNVA) | payer MEDICARE, SELFPAY | PROVIDERS: PCP Nurse Practitioner Family; Visit Provider Surgery | DX: R13.10 Dysphagia, unspecified (principal); D64.9 Anemia, unspecified | CPT/HCPCS: 99214 ==

== ENCOUNTER 2022-08-31 15:17 | Inpatient (IN) | payer MEDICARE, SELFPAY ==
[2022-08-31] VITALS (72 sets, daily range): BP systolic 85–142; BP diastolic 49–79; PULSE 45–118; RESP 12–29; TEMP 36.6; O2SAT 81–99; BMI 28.3
--- NOTE | 2022-08-31 15:22 | XR_ITS ---
WS: [id number] Exam: XR chest 1V portable [id number] Date/Time of Exam: 08/31/2022 3:22 PM Reason For Exam: cp Comparison 08/01/2022 The lungs are fully inflated and clear. Mild cardiac enlargement unchanged. The mediastinum is normal in contour. Regional bony structures are intact. Moderately advanced DJD of both shoulders. [place] on rods are noted in the lower thoracic spine. There is thoracic scoliosis with right convexity. Phoebe toring leads superimpose the chest. XR/XR chest 1V portable [id number] IMPRESSION: 1. No acute cardiopulmonary finding. 2. Mild cardiac enlargement unchanged.
--- NOTE | 2022-08-31 15:22 | ECG_ITS ---
[facility] Test Date: 2022-08-31 Pat Name: Maria Teresa Woodruff Department: Room: Gender: Female Director Talent: : [phone] Requested By: Krishan Schuler Order Number: [id number] Mely MD: Shivani Brooks M.D. Measurements Intervals [place] Rate: 51 P: [place]: QRS: 54 QRSD: 90 T: 50 QT: 379 QTc: 350 Interpretive Statements ECTOPIC ATRIAL BRADYCARDIA NONSPECIFIC T-WAVE ABNORMALITY Compared to ECG 08/02/2022 00:31:56 No significant changes Electronically Signed On 08-31-2022 22:51:59 CDT by Shivani Brooks M.D. [id number]
--- NOTE | 2022-08-31 15:34 | W.ED.GENADLT ---
HPI - General Adult General: Chief complaint: Arrhythmia/Palpitations Stated complaint: dizziness, weakness, bradycardia Time Seen by Provider: 08/31/22 15:22 History of Present Illness: 87-year-old female brought in by EMS. Patient called EMS just because she was just was not feeling well. When EMS arrived they found that her heart rate was low in the 30s and 40s. Patient does take metoprolol. Patient also has epigastric discomfort that started today. She does not have any pain that radiates to her back. She does not have chest pain. She denies any shortness of breath. Patient does report some increased lower extremity swelling. She does take Lasix 20 mg daily. Associated symptoms: Reports malaise; Deny chest pain, dyspnea, headache(s), nausea, rash, palpitations or vomiting Review of Systems Const: Reports: fatigue and malaise; Denies: fever(s) or chills ENMT: Denies: throat pain or uvular edema Card: Reports: swelling of feet/ankles; Denies: chest pain or palpitations Resp: Denies: dyspnea or productive cough GI: Denies: abdominal pain, nausea or vomiting : Denies: flank pain, difficulty voiding or dysuria Musc: Denies: neck pain or back pain Skin/Breast: Denies: rash or changes in skin color Neuro: Denies: headache(s) or dizziness PFSH ED PFSH: Medical History Acute blood loss anemia (ABLA) Anemia Atrial fibrillation Chest pain Chronic back pain Congestive heart failure COPD (chronic obstructive pulmonary disease) Uses trilogy at night with 2 L. Typically not on oxygen during day. Coronary artery disease Depression Depression with anxiety DVT (deep venous thrombosis) Dysphagia Dyspnea or other respiratory complaints Fusion of spine History of cancer of vulva History of pulmonary embolism Hx of blood clots Hyperlipidemia Hypertension Lumbar radiculopathy Melanotic stools Obstructive sleep apnea Post-op pain Pulmonary embolism Restless leg syndrome Surgical History H/O: hysterectomy History of back surgery History of coronary artery stent placement History of hip replacement History of knee replacement History of tonsillectomy Presence of vena cava filter Family History Other Cancer Chronic back pain Social History Smoking and tobacco status: former smoker Alcohol intake: current Alcohol intake frequency: few times a month Caregiver/support person: Yes Lives independently: Yes Household members: spouse Housing: House History of recent travel: No Physical Exam Const: COMMON NORMALS: no acute distress, patient oriented x3 and no limitations GENERAL APPEARANCE: well kempt HENMT: COMMON NORMALS: normocephalic and hearing grossly normal bilaterally HEAD & SCALP: normocephalic THROAT: no uvular edema Eye: COMMON NORMALS: Equal, round and reactive pupils present and EOMs intact bilaterally PUPIL: Yes Equal, round and reactive pupils present Chest: CHEST: Yes Symmetrical chest wall rise Resp: COMMON NORMALS: normal respiratory effort, No retractions, No use of accessory muscles and clear to auscultation bilaterally AUSCULTATION: clear to auscultation bilaterally Cardio: COMMON NORMALS: regular rhythm RATE: bradycardic RHYTHM: regular rhythm GI: COMMON NORMALS: Normal to inspection, nondistended, normoactive bowel sounds present and Soft to palpation PALPATION: Yes Soft to palpation Extremity: GENERAL: Yes edema (Mild 1+ bilateral) Neuro: COMMON NORMALS: patient oriented x3, moves all extremities and no focal motor deficits Psych: APPEARANCE: Yes grossly normal and Yes well kempt ATTITUDE: Yes calm Skin: COMMON NORMALS: no rashes or lesions noted and turgor normal GENERAL SKIN EXAM: no rashes or lesions noted and turgor normal Course Vital Signs: Vital signs: Vital Signs Temperature 97.8 F 08/31/22 15:27 Pulse Rate 65 08/31/22 20:35 Respiratory Rate 16 08/31/22 19:21 Blood Pressure 85/62 08/31/22 20:55 Pulse Oximetry 89 L 08/31/22 20:55 Oxygen Delivery Me thod 08/31/22 19:35 Oxygen Flow Rate 3 08/31/22 19:35 MDM - General Adult Medical Decision Making Patient received 3 mg atropine via EMS in route. Patient bradycardia improved and remained improved. Patient's pain was in the epigastric region. As patient progressed in her stay she became more confused with hallucinations and restlessness. I suspect this is likely due to the large amount of atropine she received. Patient was given initial 25 Benadryl with minimal relief. We then placed a scopolamine patch which started give her some improvement. She was also given another 50 of Benadryl. Patient's symptoms slowly improved. However she was not back to her baseline. She did have a slight increase of her troponin at the 2-hour check. This is slightly above her baseline troponin. This could be from a non-STEMI however she did have a recent negative stress test. Likely due to stress from the atropine dosage. We will place her in observation. Discussed with Dr. Salas who agreed with admission. She was transferred in stable condition. Lab Data : 08/31/22 15:40 08/31/22 15:40 Radiology Impressions Chest X-Ray 08/31/22 15:22 IMPRESSION: 1. No acute cardiopulmonary finding. 2. Mild cardiac enlargement unchanged. Laboratory Results WBC 7.7 10^3/uL (4.0-10.0) 08/31/22 15:40 RBC 4.10 10^6/uL (4.1-5.3) 08/31/22 15:40 Hgb 10.6 g/dL (11.5-15.3) L 08/31/22 15:40 Hct 37.9 % (37.0-47.0) 08/31/22 15:40 MCV 92.4 fl (81-99) 08/31/22 15:40 MCH 25.9 pg (28.0-34.0) L 08/31/22 15:40 MCHC 28.0 g/dL (30.0-36.0) L 08/31/22 15:40 RDW 16.7 % (12.1-15.1) H 08/31/22 15:40 Plt Count 221 10^3/cmm (130-400) 08/31/22 15:40 MPV 9.8 fL (7.4-10.4) 08/31/22 15:40 Neut % (Auto) 63.6 % 08/31/22 15:40 Lymph % (Auto) 24.0 % 08/31/22 15:40 [place] % (Auto) 9.9 % 08/31/22 15:40 Eos % (Auto) 1.7 % 08/31/22 15:40 Baso % (Auto) 0.5 % 08/31/22 15:40 Neut # (Auto) 4.91 10^3/uL (1.8-7.7) 08/31/22 15:40 Lymph # (Auto) 1.9 10^3/uL (0.8-4.8) 08/31/22 15:40 [place] # (Auto) 0.8 10^3/uL (0.2-0.9) 08/31/22 15:40 Eos # (Auto) 0.1 10^3/uL (0.0-0.8) 08/31/22 15:40 Baso # (Auto) 0.0 10^3/uL (0.0-0.1) 08/31/22 15:40 Nucleated RBC % (auto) 0 % 08/31/22 15:40 Nucleated RBCs # 0.0 /100WBC 08/31/22 15:40 Sodium 140 mmol/L (136-145) 08/31/22 15:40 Potassium 5.1 mmol/L (3.5-5.1) 08/31/22 15:40 Chloride 100 mmol/L (98-107) 08/31/22 15:40 Carbon Dioxide 29 mmol/L (22-29) 08/31/22 15:40 Anion Gap 16.1 (5-19) 08/31/22 15:40 BUN 31 mg/dL (8-23) H 08/31/22 15:40 Creatinine 1.2 mg/dL (0.5-0.9) H 08/31/22 15:40 GFR Calculation Not Reportable 08/31/22 15:40 Glucose 96 mg/dL (65-115) 08/31/22 15:40 Calculated Osmolality 296 mOsm/kg (285-295) H 08/31/22 15:40 Calcium 9.3 mg/dL (8.5-10.5) 08/31/22 15:40 Total Bilirubin 0.4 mg/dL (0.15-1.2) 08/31/22 15:40 AST 22 U/L (0-32) 08/31/22 15:40 ALT 13 U/L (0-33) 08/31/22 15:40 Alkaline Phosphatase 253 U/L (35-105) H 08/31/22 15:40 Troponin T Baseline 57 ng/L (0-10) H 08/31/22 15:40 Troponin T 120 Minute 68.84 ng/L (0-10) H 08/31/22 17:41 Delta Troponin T 11.84 ABS# (0-10) H* 08/31/22 17:41 NT-Pro-B Natriuret Pep 1065 pg/mL (0-450) H 08/31/22 15:40 Total Protein 6.4 g/dL (6.6-8.7) L 08/31/22 15:40 Albumin 3.8 g/dL (3.5-5.2) 08/31/22 15:40 Globulin 2.6 g/dL (1.3-4.6) 08/31/22 15:40 EKG Data EKG 1: I personally reviewed and interpreted this EKG as follows: EKG interpretation date: 08/31/22 EKG interpretation time: 15:19 Interpretation: Bradycardia, ventricular rate 51, QRS 90, QTc 355. Nonspecific T wave abnormalities, Computer generated interpretation: Chest X-Ray 08/31/22 15:22 IMPRESSION: 1. No acute cardiopulmonary finding. 2. Mild cardiac enlargement unchanged. Discharge Plan Discharge Patient Disposition: Admitted As Inpatient Admit Provider: Tin Salas Clinical Impression: Medication side effects present, Elevated troponin, Hallucinations, unspecified Condition: Stable Coding Level of Care Code ED Director Clinical Research for Chg Fwd Exam Comprehensive
[2022-08-31] MEDS: famotidine 20 mg/2 mL INJ IVP (15:49)
[2022-08-31 15:57] LABS: Basophils % 0.5 %; Eosinophils # 0.1 10^3/uL (0.0-0.8); Eosinophils % 1.7 %; Hematocrit 37.9 % (37.0-47.0); Hemoglobin 10.6 g/dL (11.5-15.3); Lymphocytes # 1.9 10^3/uL (0.8-4.8); Mean Corpuscular Hemoglobin 25.9 pg (28.0-34.0); Mean Corpuscular Volume 92.4 fl (81-99); Mean Platelet Volume 9.8 fL (7.4-10.4); Monocytes # 0.8 10^3/uL (0.2-0.9); Monocytes % 9.9 %; Neutrophils # 4.91 10^3/uL (1.8-7.7); Neutrophils % 63.6 %; Nucleated Red Blood Cells % 0 %; Platelet Count 221 10^3/cmm (130-400); Red Cell Distribution Width 16.7 % (12.1-15.1); White Blood Count 7.7 10^3/uL (4.0-10.0)
--- NOTE | 2022-08-31 16:08 | PC.PHAR ---
PT UNABLE TO VERIFY MEDS DO TO AMS- UNABLE TO CONTACT PTS - VERIFIED USING EXTERNAL MED LIST LAST FILLED
[2022-08-31 16:21] LABS: Alanine Aminotransferase 13 U/L (0-33); Albumin Level 3.8 g/dL (3.5-5.2); Alkaline Phosphatase 253 U/L (35-105); Aspartate Amino Transferase 22 U/L (0-32); Blood Urea Nitrogen 31 mg/dL (8-23); Calcium 9.3 mg/dL (8.5-10.5); Carbon Dioxide 29 mmol/L (22-29); Chloride 100 mmol/L (98-107); Globulin 2.6 g/dL (1.3-4.6); Glucose 96 mg/dL (65-115); NT Pro B Type Natriuretic Pept 1065 pg/mL (0-450); Osmolality Calculated 296 mOsm/kg (285-295); Sodium 140 mmol/L (136-145); Total Bilirubin 0.4 mg/dL (0.15-1.2); Total Protein 6.4 g/dL (6.6-8.7)
[2022-08-31 16:24] LABS: Troponin(5th) Baseline 57 ng/L (0-10)
[2022-08-31 16:25] LABS: Anion Gap 16.1 (5-19); Creatinine Clr Calc Pharmacy 35.1947; Potassium 5.1 mmol/L (3.5-5.1)
[2022-08-31] MEDS: diphenhydrAMINE 50 mg/mL SDV 1mL 25 MG IVP (16:55)
--- NOTE | 2022-08-31 16:59 | PC.NURSE ---
pt continuously thrashing around in bed, very anxious. unable to lay still to obtain blood pressure
--- NOTE | 2022-08-31 17:22 | PC.NURSE ---
pt pulled out IV. ED physician to bedside. new orders to be placed
[2022-08-31] MEDS: scopolamine 1.5 Patch 1 PATCH TRANSDERMA (17:39)
[2022-08-31 18:08] LABS: Troponin 5 2HR 68.84 ng/L (0-10)
[2022-08-31 18:12] LABS: Troponin 5 2HR Delta 11.84 ABS# (0-10)
--- NOTE | 2022-08-31 18:27 | PC.NURSE ---
pt continues to thrash around in bed, at bedside reports possible slight improvement.
--- NOTE | 2022-08-31 19:02 | PC.NURSE ---
pt continues to roll back and forth in bed, remains at bedside
--- NOTE | 2022-08-31 19:05 | PC.NURSE ---
report given to NADYA Villaseñor
[2022-08-31] MEDS: diphenhydrAMINE 50 mg/mL SDV 1mL IVP (19:19)
--- NOTE | 2022-08-31 20:09 | P.HP_ITS ---
Providers/Chief Complaint Admitting Physician: Tin Salas Primary Care Provider: June Merchant Chief Complaint: dizziness, weakness, bradycardia History of Present Illness 87-year-old lady with history of atrial fibrillation, history of DVT, on chronic anticoagulation with Xarelto, COPD, using trilogy at night, 2 L oxygen, CHF with recent hospitalization, other comorbidities this morning was in usual state of health, yesterday had gone to sikhism with her , today EMS was called as she was complaining of some substernal chest discomfort or possibly epigastric d iscomfort, she is reported to have been found to be bradycardic heart rates possibly as low as 30s. In route to the hospital received atropine up to 3 mg. In ER noted with progressive confusion, hallucinations, restless, trying to climb out of bed and not redirectable. With concern of cholinergic symptoms following atropine in ER she started on scopolamine patch, received repeat doses of Benadryl. Observation is requested due to ongoing confusion. Heart rates noted currently in the 60s. She is noted also to have rise in troponin, with chronically elevated baseline, but with positive delta currently from 57-68.84. NT proBNP similar or lower than prior at 1065. EKG with supraventricular bradycardia. Nonspecific T wave abnormality. Review of Systems General: Reports: ROS unobtainable due to mental status and Other (Limited ROS obtained from , he denies apart from the above symptoms ) Medications/Allergies Home Medications Medication Instructions Recorded Confirmed Last Taken Type potassium chloride 10 mEq 10 meq PO BID 01/14/21 08/31/22 08/01/22 History capsule,extended release ropinirole 4 mg tablet 4 mg PO BEDTIME 01/14/21 08/31/22 07/31/22 History venlafaxine 150 mg tablet,extended 150 mg PO DAILY 01/14/21 08/31/22 08/01/22 History release 24 hr ergocalciferol (vitamin D2) 1,250 1,250 mcg PO Q7D 05/21/21 08/31/22 09/28/21 History mcg (50,000 unit) capsule clobetasol 0.05 % topical gel 1 applic topical DAILY 09/09/21 08/31/22 09/27/21 History metoprolol tartrate 25 mg tablet 25 mg PO BID #60 tabs 10/08/21 08/31/22 08/01/22 Rx pantoprazole 20 mg tablet,delayed 20 mg PO DAILY #20 tabs 10/08/21 08/31/22 08/01/22 Rx release (Protonix) atorvastatin 40 mg tablet 40 mg PO BEDTIME #90 tabs 04/13/22 08/31/22 07/31/22 Rx nitroglycerin 0.4 mg sublingual 0.4 mg sublingual Q5M PRN chest 04/13/22 08/31/22 Unknown Rx tablet pain #25 tabs ascorbic acid (vitamin C) 500 mg 1,000 mg PO DAILY 08/01/22 08/31/22 08/01/22 History tablet (Vitamin C) gabapentin 300 mg capsule 600 mg PO BEDTIME 08/01/22 08/31/22 07/31/22 History ondansetron HCl 8 mg tablet 8 mg PO Q8H PRN Nausea 08/01/22 08/31/22 Unknown History rivaroxaban 20 mg tablet (Xarelto) 20 mg PO DAILY #30 tabs 08/05/22 08/31/22 Unknown Rx furosemide 20 mg tablet (Lasix) 20 mg PO EVERY OTHER DAY 08/11/22 08/31/22 Unknown History nifedipine 30 mg tablet,extended 30 mg PO DAILY #90 tabs 08/11/22 08/31/22 Unknown Rx release hydrocodone 5 mg-acetaminophen 325 1 - 2 tab PO Q4H PRN pain 08/31/22 08/31/22 Unknown History mg tablet vit A-vit C-rcdi-caoogqpo lozenges 1 gilbert PO DAILY 08/31/22 08/31/22 Unknown History (Zinc (with Vitamins A and C) Lozenges) Allergies Allergy/AdvReac Type Severity Reaction Status Date / Time amoxicillin Allergy rash Verified 08/31/22 16:04 epinephrine Allergy Unknown Verified 08/31/22 16:04 hydrochlorothiazide Allergy unknown Verified 08/31/22 16:04 Iodinated Contrast Media Allergy Unknown Verified 08/31/22 16:04 morphine Allergy nausea, Verified 08/31/22 16:04 hyper Penicillins Allergy rash Verified 08/31/22 16:04 Tetanus Vaccines and Toxoid Allergy unk Verified 08/31/22 16:04 PFSH Acute PFSH: Medical History Acute blood loss anemia (ABLA) Anemia Atrial fibrillation Chest pain Chronic back pain Congestive heart failure COPD (chronic obstructive pulmonary disease) Uses trilogy at night with 2 L. Typically not on oxygen during day. Coronary artery disease Depression Depression with anxiety DVT (deep venous thrombosis) Dysphagia Dyspnea or other respiratory complaints Fusion of spine History of cancer of vulva History of pulmonary embolism Hx of blood clots Hyperlipidemia Hypertension Lumbar radiculopathy Melanotic stools Obstructive sleep apnea Post-op pain Pulmonary embolism Restless leg syndrome Surgical History H/O: hysterectomy History of back surgery History of coronary artery stent placement History of hip replacement History of knee replacement History of tonsillectomy Presence of vena cava filter Family History Other Cancer Chronic back pain Social History Smoking and tobacco status: former smoker Alcohol intake: current Alcohol intake frequency: few times a month Caregiver/support person: Yes Lives independently: Yes Household members: spouse Housing: House History of recent travel: No Vitals/I&O/Wt Last Vital Signs Temp 97.8 F 08/31/22 15:27 Pulse 69 08/31/22 19:21 Resp 16 08/31/22 19:21 BP 125/72 08/31/22 19:24 Pulse Ox 95 08/31/22 19:21 O2 Del Method 08/31/22 19:21 O2 Flow Rate 3 08/31/22 19:21 Weight last 48 hrs Weight 77.111 kg Physical Exam Const: GENERAL APPEARANCE: cooperative ORIENTATION/CONSCIOUSNESS: Yes confused OTHER: Moving about in bed, reaching out in the air trying to grab something. Occasionally sitting up turning toward and grabbing onto handrail. HENMT: COMMON NORMALS: oropharynx normal Neck/C-Spine: COMMON NORMALS: no JVD Resp: COMMON NORMALS: normal respiratory effort and clear to auscultation bilaterally AUSCULTATION: clear to auscultation bilaterally Cardio: COMMON NORMALS: no JVD, regular rhythm, S1 normal heart sound present, S2 normal heart sound present and No murmurs present (Cardio) RHYTHM: regular rhythm HEART SOUNDS: S1 normal heart sound present and S2 normal heart sound present GI: COMMON NORMALS: Normal to inspection, nondistended, normoactive bowel priti nds present, Soft to palpation and non-tender PALPATION: Yes Soft to palp ation Extremity: COMMON NORMALS: no joint enlargement and no pedal edema Neuro: COMMON NORMALS: moves all extremities SENSORIUM/ORIENTATION: Yes alert Skin: COMMON NORMALS: no rashes or lesions noted GENERAL SKIN EXAM: no rashes or lesions noted Data : 08/31/22 15:40 08/31/22 15:40 A&P Assessment and plan (1) Acute encephalopathy: Some progressive confusion noted in ER with suspected acute encephalopathy secondary to adverse effect of medication, in ER suspected anticholinergic symptom following atropine. She has received scopolamine, 2 doses 25 mg Benadryl, and 1 dose of 50 mg Benadryl. For now we will hold off additional medications. Discussed with we will also hold any of her other medications that may contribute to encephalopathy including ropinirole and she also is not able to safely take oral medications currently. Cardiac monitoring. Place Long catheter. One-to-one sitter due to risk of climbing out of bed. Assess UA (2) Bradycardia: So far without recurrence. Hold metoprolol. Hold nifedipine. Reported bradycardia in the 30s. She had also reported having some chest discomfort. Monitor on telemetry. If no significant events in the hospital, consider residential monitor at discharge. Assess TSH (3) Chest pain: Reported some substernal, possibly epigastric chest pain. Possibly associated with bradycardia. Recently had work-up additionally due to troponin elevation, had undergone stress test with noted fixed abnormality, no acute ischemia. Was suspected to have had type II [place]/demand ischemia. Currently unable to take oral medication, will give aspirin TX, complete troponin EKG series, obtain limited TTE to assess for any R WMA. Current positive troponin delta suspect may be related to heart rate changes, however, consider if additional work-up is warranted depending on results. Plan CHF: Currently does not appear in exacerbation A. fib: Metoprolol currently on hold. Additional work-up of bradycardia, consideration of SSS as above. Currently unable to take oral medications, will transition anticoagulation to parenteral with Lovenox. History of DVT: Transition to relationship rental with naloxone as above. Resume Xarelto once able to resume oral medications. COPD: Currently does not appear in exacerbation, continue oxygen support. Discussed with currently confusion, not sure that she would tolerate NIPPV well tonight. Resume once able to tolerate. KIMBERLY RLS Other chronic morbidities Attestations Medical Necessity Statement*: Place in observation for additional assessment management of acute encephalopathy, assessment after episode of bradycardia, chest pain. Coding Level of Care Code Acute Bench Loom Weaver for Garett Le[facility] Diagnoses Acute encephalopathy G93.40 Bradycardia R00.1 Chest pain R07.9
[2022-08-31] MEDS: enoxaparin 80 mg/0.8 mL Syringe 77 MG SUBCUT (21:29)
[2022-08-31] MEDS: aspirin 300 mg Supp PR (21:38)
[2022-08-31] MEDS: pantoprazole 40 mg SDV IVP (21:41)
[2022-08-31 22:10] LABS: Thyroid Stimulating Hormone 1.18 uIU/mL (0.27-4.20)
--- NOTE | 2022-08-31 22:15 | ECG_ITS ---
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 Measurements Intervals [place] Rate: 64 P: 86 PA: 162 QRS: 58 QRSD: 95 T: 43 QT: 410 QTc: 425 Interpretive Statements SINUS RHYTHM WITH SINUS ARRHYTHMIA Compared to ECG 08/31/2022 15:18:44 T-wave abnormality no longer present Electronically Signed On 09-02-2022 0:23:12 CDT by Glenna Coelho M.D. [email or web address], [id number]
[2022-08-31 22:49] LABS: Troponin 5 6HR 73.41 ng/L (0-10)
[2022-08-31 22:56] LABS: Troponin 5 6HR Delta 16.41 ng/L (0-12)
[2022-08-31 23:51] LABS: Glucose Urine UA Norm (Normal); Protein Urine 1+ (Negative); Urine Appearance SL Hazy (CLEAR); Urine Color Dark Yellow (Yellow); pH Urine 5 (5-7)
[2022-08-31 23:52] LABS: Add Urine Microscopic? YES; Bilirubin Urine 1+ (Negative); Blood Urine Neg (Negative); Ketones Urine 1+ (Negative); Nitrate Urine Negative (Negative); Urobilinogen Urine Norm (Negative)
[2022-08-31 23:53] LABS: Leukocyte Esterase Urine 1+ (Negative)
[2022-08-31 23:54] LABS: Amorphous Sediment Urine 2+ /hpf; Bacteria Urine TRACE /hpf; Coarse Granular Casts Urine 0-4 /lpf; Fine Granular Casts Urine 0-4 /lpf; RBC Urine 0-4 /hpf (0-2); Renal Epithelial Cells Urine 0-2 /hpf
[2022-08-31 23:55] LABS: Add Urine Culture? No
[2022-09-01] VITALS (11 sets, daily range): BP systolic 140–153; BP diastolic 52–75; PULSE 54–78; RESP 14–26; TEMP 36.4–36.8; O2SAT 73–96; BMI 29.5
--- NOTE | 2022-09-01 03:34 | PC.NURSE ---
Dr. Reeves informed that stated pt is DNR and that they have paperwork at home indicating DNR status for pt. Dr. Reeves approved to change code status to DNR, pt requesting something to drink and complaining of dry mouth and pain on tongue and feeling like tongue is splitting, Dr. Roman approved ice chips and sips of water with supervision and to remove scopolamine patch. patch removed from behind right ear
[2022-09-01 04:16] LABS: Basophils # 0.1 10^3/uL (0.0-0.1); Basophils % 0.7 %; Eosinophils % 0.4 %; Hematocrit 32.7 % (37.0-47.0); Hemoglobin 9.5 g/dL (11.5-15.3); Lymphocytes # 1.6 10^3/uL (0.8-4.8); Lymphocytes % 21.4 %; Mean Corpuscular HGB Conc 29.1 g/dL (30.0-36.0); Mean Corpuscular Hemoglobin 26.2 pg (28.0-34.0); Mean Corpuscular Volume 90.3 fl (81-99); Mean Platelet Volume 9.8 fL (7.4-10.4); Monocytes # 0.8 10^3/uL (0.2-0.9); Monocytes % 10.7 %; Neutrophils % 66.4 %; Nucleated Red Blood Cells % 0 %; Platelet Count 198 10^3/cmm (130-400); Red Blood Count 3.62 10^6/uL (4.1-5.3); Red Cell Distribution Width 16.7 % (12.1-15.1); White Blood Count 7.7 10^3/uL (4.0-10.0)
[2022-09-01 04:37] LABS: Alanine Aminotransferase 14 U/L (0-33); Albumin Level 3.5 g/dL (3.5-5.2); Alkaline Phosphatase 227 U/L (35-105); Anion Gap 14.7 (5-19); Aspartate Amino Transferase 31 U/L (0-32); Blood Urea Nitrogen 36 mg/dL (8-23); Carbon Dioxide 29 mmol/L (22-29); Chloride 99 mmol/L (98-107); Globulin 2.7 g/dL (1.3-4.6); Glucose 71 mg/dL (65-115); Osmolality Calculated 293 mOsm/kg (285-295); Potassium 4.7 mmol/L (3.5-5.1); Sodium 138 mmol/L (136-145); Total Bilirubin 0.4 mg/dL (0.15-1.2); Total Protein 6.2 g/dL (6.6-8.7)
[2022-09-01] MEDS: ondansetron 2 mg/ML SDV 2 mL 4 MG IVP (10:08)
[2022-09-01] MEDS: ropinirole 2 mg Tablet PO (10:20)
[2022-09-01] MEDS: gabapentin 300 mg Capsule PO (10:20)
[2022-09-01] MEDS: enoxaparin 80 mg/0.8 mL Syringe 77 MG SUBCUT ×2 (10:21→20:24)
--- NOTE | 2022-09-01 10:44 | ECG_ITS ---
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 Measurements Intervals [place] Rate: 77 P: 84 [place]: 158 QRS: 45 QRSD: 102 T: 60 QT: 393 QTc: 447 Interpretive Statements SINUS RHYTHM Compared to ECG 08/31/2022 22:15:53 Sinus arrhythmia no longer present Electronically Signed On 09-02-2022 0:24:15 CDT by Glenna Coelho M.D. [id number]
--- NOTE | 2022-09-01 11:11 | P.PN_ITS ---
Subjective Subjective: Patient is awake and alert. She has a sitter. She is currently NPO. She is oriented to year. She initially thinks that July, but corrects to August. She does not know the date. She reportedly did not sleep all night. She complains of restless legs. She is conversational, although nery e of her speech at times is incomprehensible. She does not seem to remember most of the events that led to her hospitalization yesterday. She endorses epigastric pains. She denies fevers, chills, nausea or emesis. Medications: Reviewed: Yes Vitals/I&O/Wt Last Vital Signs Temp 98.2 F 09/01/22 08:00 Pulse 63 09/01/22 08:00 Resp 16 09/01/22 08:00 BP 153/65 09/01/22 08:00 Pulse Ox 93 09/01/22 08:00 O2 Del Method 09/01/22 08:00 O2 Flow Rate 3 09/01/22 08:00 08/31/22 09/01/22 09/01/22 22:59 06:59 14:59 Intake Total 120 / 120 Balance 120 / 120 Weight last 48 hrs Weight 79.889 kg Weight 80.343 kg Weight 77.111 kg Physical Exam Narrative: General: Patient is awake. Restless. Impulsive. Head: Normocephalic. Atraumatic. EOM intact. Neck: No JVD. Cardiovascular: Regular rate. No gallops. No murmurs. No peripheral edema. Lungs: Clear to auscultation, no use of accessory muscles, no crackles or wheezes. Skin: No jaundice. No rashes. Abdomen: She has epigastric tenderness to palpation. Hypoactive bowel sounds. Some voluntary guarding. Genito Urinary: Genital exam not performed since complaints not related. Rectal: Rectal exam not performed since no symptoms indicated blood loss. Extremities: No cyanosis or clubbing. Musculoskeletal: No swollen or erythematous joints. Neurological: Moves all 4 extremities. No myoclonus. Urinary Catheter Management: Long: Cath Placed During This Visit: yes Reason for Continuing Indwelling Catheter: Acute Urinary Retention or Obstruction Urinary Catheter Date of Insertion: 08/31/22 Urinary Catheter Time of Insertion: 23:15 Data : 09/01/22 04:07 09/01/22 04:07 A&P Assessment and plan (1) Acute encephalopathy: She remains persistently altered, not responding to treatment as intended Suspected acute toxic metabolic encephalopathy secondary to medication side effect complicated by delirium Altered mental status reportedly followed administration of atropine suspicious for anticholinergic side effects In the ED, she received scopolamine, and multiple doses of Benadryl Urinalysis with poor sample quality Chest x-ray negative for pneumonia Continue sitter Restart home ropinirole, opiate, and gabapentin as to not precipitate withdrawal (2) Bradycardia: History of atrial fibrillation Troponin elevated, she has chronic myocardial injury Reportedly bradycardic in the 30s for which atropine was administered Holding metoprolol Holding nifedipine Telemetry monitoring TSH within normal limits Monitor electrolytes She has a history of A. fib with RVR, currently at risk of recurrence while off beta-marie Will request cardiology consultation (3) Chest pain: Pain is much more epigastric on my exam and tender to palpation Obtain lipase Continue IV PPI Trial of GI cocktail Limited TTE pending (4) Restless leg syndrome: Extremely symptomatic Restart home ropinirole and gabapentin (5) Dysphagia: Currently on a dysphagia diet at home By speech therapy notes from last year indicate pur?ed diet Start pur?ed diet Speech therapy consultation (6) Congestive heart failure: Not in acute exacerbation Strict I's and O's Daily assessments of volume Qualifiers: Heart failure chronicity: acute on chronic Heart failure type: unsp ecified Qualified Code(s): I50.9 - Heart failure, unspecified (7) Coronary artery disease: Restart home statin (8) Pulmonary embolism: Xarelto on hold Continue with therapeutic Lovenox Plan DVT prophylaxis: Lovenox CODE STATUS: DNR Attestations Medical Necessity Statement*: Patient requires ongoing hospitalization for acute metabolic encephalopathy requiring one-to-one sitter, ongoing sukumar st/epigastric pain of unclear etiology, continuous telemetry monitoring for symptomatic bradycardia, and cardiology evaluation. Coding Level of Care Code Acute Salesperson Neckties for [facility] Diagnoses Acute encephalopathy G93.40 Bradycardia R00.1 Chest pain R07.9 Restless leg syndrome G25.81 Dysphagia R13.10 Congestive heart failure I50.9 Heart failure chronicity: acute on chronic Heart failure type: unspecified Coronary artery disease I25.10 Pulmonary embolism I26.99
[2022-09-01] MEDS: lidocaine 2% viscous 15 ML, aluminum-mag hydrox-simethicon 30 ML, sucralfate oral liq 1 GM PO (11:18)
[2022-09-01 11:47] LABS: Lipase 16 U/L (13-60)
--- NOTE | 2022-09-01 11:56 | PC.CHAP ---
Pastoral Care Encounter/Spiritual Assessment Type of Contact [] Declined medical physics researcher visit [] Patient/Family/Request visit [] Outpatient visit [] Follow-up visit [] Physician referral [] Code/Alert [x] Routine visit [] Staff referral [] Actively dying [] Patient sleeping [] Family support [] [] Out of room [] Palliative care [] [] Receiving care in room [] Pre-surgical visit [] Trauma [] Long length of stay [] ICU visit [] Other: Relational/Emotional Strength [x] Patient feels connected with others/family/visitors/staff [] Distress [] Loneliness/isolation [] Abandonment Spirituality of Patient [x] Person of Sarah [] Attends Yazidism of their Sarah [] Believes in Prayer [] Reads Bible or Yazdanism materials [] There are Spiritual issues to be addressed Director Cardiac Interventions x [x] Prayer [x] Active listening [] Non-anxious presence [] Spiritual/emotional support [] Crisis/trauma care [] Spiritual counseling [] Bereavement support [] Provided bereavement packet [] Provided Bible/devotional materials [] Provided toy/stuffed animal, coloring book to patient or family member [] Provided Communion [] Anointing/[place] [] Salvation [x] Completed spiritual assessment [] Other: Impact on Illness or Injury [] Angry [] Fearful [] Anxious [] Often cries [] Exhaustion [] Unable to work [] Unable to attend jain [] Unable to walk/stand [] Unable to read [] Unable to drive [] Unable to eat/drink [] Unable to sleep [] Unable to be with family [] Patient intubated [] Other: Summary Time spent with patient 10 min
--- NOTE | 2022-09-01 14:52 | PM.CONSULT ---
Providers/Reason For Consult Consulting Physician/Specialty*: Cardiovascular medicine Reason for Consult*: Bradycardia Requesting Physician: Hospitalist Attending Physician: Curry Mayberry MD Primary Care Provider: June Merchant History of Present Illness History of Present Illness Maria Teresa Woodruff is a 87 year old female who was in the hospital last admission was about a month ago when she came in with acute kidney injury and dehydration. She had an elevated troponin at the time. A sestamibi examination revealed a fixed defect without ischemia. The defect was a small area in the basal, inferior, lateral and apical region. However, her ejection fraction was normal making this less reliable. At that time her chest x-ray was unremarkable. She ultimately was sent home. 2 days ago, on Wednesday, she was [facility]. Apparently she complained of some chest and/or abdominal pain. An ambulance was called. Allegedly she had bradycardia with heart rates in the 30s. Unfortunately this is not documented. She was given 3 mg of atropine and became acutely confused, agitated and was having hallucinations. She was admitted for observation. She remains confused with some agitation and is requiring a sitter. Since she has been here she has been in sinus rhythm with heart rates from 60-80. She was on metoprolol 25 mg twice a day as one of her admission medications. She has a long list of medical problems that it has included a pulmonary embolism after a DVT. This prompted placement of an IVC filter. She is on chronic anticoagulation and has chronic hypoxemia on oxygen. She has chronic kidney disease, pulmonary hypertension, anemia, history of atrial fibrillation, chronic pain, COPD, history of vulvar cancer, dyslipidemia, hypertension, sleep apnea, questionable diastolic heart failure and even more questionable coronary disease. When I went in to see her she was startled and nearly rolled out of the bed. She is disoriented. She knows her name but not the place or the time. She does know the month. She is not capable of carrying on a conversation and wanders off on multiple subjects. History taking therefore is not useful at this time. She denies any discomfort. Currently she is in sinus rhythm with a heart rate of 66. The metoprolol is being held. Factor Xa is being held also and she is being given full dose Lovenox. Since being admitted her chest x-ray is unremarkable aside from some cardiomegaly which was previously present. Her EKGs all reveal sinus rhythm. She had a repeat echocardiogram which reveals normal LV function similar to previously. This was only a limited 2D echo so pulmonary pressures were not measured. Her telemetry monitoring strips have revealed sinus rhythm. Troponins are 57, 69 and 73. Medications/Allergies Home Medications Medication Instructions Recorded Confirmed Last Taken Type potassium chloride 10 mEq 10 meq PO BID 01/14/21 08/31/22 08/01/22 History capsule,extended release ropinirole 4 mg tablet 4 mg PO BEDTIME 01/14/21 08/31/22 07/31/22 History venlafaxine 150 mg tablet,extended 150 mg PO DAILY 01/14/21 08/31/22 08/01/22 History release 24 hr ergocalciferol (vitamin D2) 1,250 1,250 mcg PO Q7D 05/21/21 08/31/22 09/28/21 History mcg (50,000 unit) capsule clobetasol 0.05 % topical gel 1 applic topical DAILY 09/09/21 08/31/22 09/27/21 History metoprolol tartrate 25 mg tablet 25 mg PO BID #60 tabs 10/08/21 08/31/22 08/01/22 Rx pantoprazole 20 mg tablet,delayed 20 mg PO DAILY #20 tabs 10/08/21 08/31/22 08/01/22 Rx release (Protonix) atorvastatin 40 mg tablet 40 mg PO BEDTIME #90 tabs 04/13/22 08/31/22 07/31/22 Rx nitroglycerin 0.4 mg sublingual 0.4 mg sublingual Q5M PRN chest 04/13/22 08/31/22 Unknown Rx tablet pain #25 tabs ascorbic acid (vitamin C) 500 mg 1,000 mg PO DAILY 08/01/22 08/31/22 08/01/22 History tablet (Vitamin C) gabapentin 300 mg capsule 600 mg PO BEDTIME 08/01/22 08/31/22 07/31/22 History ondansetron HCl 8 mg tablet 8 mg PO Q8H PRN Nausea 08/01/22 08/31/22 Unknown History rivaroxaban 20 mg tablet (Xarelto) 20 mg PO DAILY #30 tabs 08/05/22 08/31/22 Unknown Rx nifedipine 30 mg tablet,extended 30 mg PO DAILY #90 tabs 08/11/22 08/31/22 Unknown Rx release hydrocodone 5 mg-acetaminophen 325 1 - 2 tab PO Q4H PRN pain 08/31/22 08/31/22 Unknown History mg tablet vit A-vit K-yaiy-czazrash lozenges 1 gilbert PO DAILY 08/31/22 08/31/22 Unknown History (Zinc (with Vitamins A and C) Lozenges) rivaroxaban 20 mg tablet (Xarelto) 20 mg PO DAILY 09/01/22 09/01/22 08/31/22 18:00 History Allergies Allergy/AdvReac Type Severity Reaction Status Date / Time amoxicillin Allergy rash Verified 08/31/22 16:04 epinephrine Allergy Unknown Verified 08/31/22 16:04 hydrochlorothiazide Allergy unknown Verified 08/31/22 16:04 Iodinated Contrast Media Allergy Unknown Verified 08/31/22 16:04 morphine Allergy nausea, Verified 08/31/22 16:04 hyper Penicillins Allergy rash Verified 08/31/22 16:04 Tetanus Vaccines and Toxoid Allergy unk Verified 08/31/22 16:04 Current Medications Generic Name Dose Route Start Last Admin Trade Name Freq PRN Reason Stop Dose Admin Enoxaparin Sodium 77 mg 08/31/22 21:23 09/01/22 10:21 Enoxaparin 80 Mg/0.8 Ml Syringe SUBCUT 77 mg Q12H LV Administration Ondansetron HCl 4 mg 08/31/22 21:23 09/01/22 10:08 Ondansetron 2 Mg/Ml Sdv 2 Ml IVP 4 mg Q8H PRN Administration vomiting, or N/V if npo Pantoprazole Sodium 40 mg 08/31/22 21:23 08/31/22 21:41 Pantoprazole 40 Mg Sdv IVP 40 mg Q24H LV Administration PFSH Acute PFSH: Medical History (Updated 09/01/22 @ 11:26 by Curry Mayberry MD) Acute blood loss anemia (ABLA) Anemia Atrial fibrillation Chest pain Chronic back pain Congestive heart failure COPD (chronic obstructive pulmonary disease) Uses trilogy at night with 2 L. Typically not on oxygen during day. Coronary artery disease Depression Depression with anxiety DVT (deep venous thrombosis) Dysphagia Dyspnea or other respiratory complaints Fusion of spine History of cancer of vulva History of pulmonary embolism Hx of blood clots Hyperlipidemia Hypertension Lumbar radiculopathy Melanotic stools Obstructive sleep apnea Post-op pain Pulmonary embolism Restless leg syndrome Surgical History H/O: hysterectomy History of back surgery History of coronary artery stent placement History of hip replacement History of knee replacement History of tonsillectomy Presence of vena cava filter Family History Other Cancer Chronic back pain Social History Smoking and tobacco status: former smoker Alcohol intake: current Alcohol intake frequency: few times a month Caregiver/support person: Yes Lives independently: Yes Household members: spouse Housing: House History of recent travel: No Vitals/I&O/Wt Last Vital Signs Temp 98.2 F 09/01/22 12:00 Pulse 78 09/01/22 14:30 Resp 17 09/01/22 12:00 BP 145/64 09/01/22 12:00 Pulse Ox 93 09/01/22 14:30 O2 Del Method 09/01/22 14:30 O2 Flow Rate 3 09/01/22 14:30 08/31/22 09/01/22 09/01/22 22:59 06:59 14:59 Intake Total 120 / 120 240 / 240 Balance 120 / 120 240 / 240 Weight last 48 hrs Weight 176 lb 2 oz Weight 177 lb 2 oz Weight 170 lb Physical Exam Narrative: GENERAL: In general she is confused, somewhat agitated and disoriented HEENT: Exam within normal limits. NECK: Supple without jugular vein distention. The carotid upstroke is normal without bruits. BACK: Exam normal. LUNGS: Clear. HEART: Regular rate and rhythm. ABDOMEN: Benign without organomegaly or tenderness. EXTREMITIES: No edema. NEUROLOGIC: Exam not done SKIN: Unremarkable. Urinary Catheter Management: Long: Cath Placed During This Visit: yes Reason for Continuing Indwelling Catheter: Acute Urinary Retention or Obstruction Urinary Catheter Date of Insertion: 08/31/22 Urinary Catheter Time of Insertion: 23:15 Data : 09/01/22 04:07 09/01/22 04:07 A&P Assessment and plan (1) Pulmonary embolism: (2) Medication side effects present: (3) Elevated troponin: (4) Hallucinations, unspecified: (5) Acute encephalopathy: (6) Anemia: (7) Pulmonary hypertension: (8) COPD (chronic obstructive pulmonary disease): Plan For now there is no indication for a pacemaker. Currently she has been in sinus rhythm with heart rates from 60-80. I would not do anything different at this time and would consider sending her home off the beta-marie. The anticoagulant can be added back at any time. The troponin elevation is related to all of her underlying medical problems and probably being given atropine. The echo was unchanged. Currently there is nothing to do from a cardiac standpoint. We will await her neurologic status to improve. Consult Attestations Medical Necessity Statement: Hospitalization for management of acute mental status changes Coding Level of Care Code New Pt Acute Director Retail Brand Development for Garett Leija Patient Type New History Detailed Exam Detailed Medical Decision Making Moderate Complexity Diagnoses Pulmonary embolism I26.99 Medication side effects present T50.905A Elevated troponin R77.8 Hallucinations, unspecified R44.3 Acute encephalopathy G93.40 Anemia D64.9 Pulmonary hypertension I27.20 COPD (chronic obstructive pulmonary disease) J44.9
[2022-09-01] MEDS: HYDROcodone-acetaminophen 5-325 mg Tablet 1 TAB PO (17:13)
[2022-09-01] MEDS: atorvastatin 40 mg Tablet PO (20:14)
[2022-09-01] MEDS: ropinirole 2 mg Tablet 4 MG PO (20:14)
[2022-09-01] MEDS: gabapentin 300 mg Capsule 600 MG PO (20:14)
[2022-09-01] MEDS: trazodone 50 mg Tablet PO (20:15)
[2022-09-01] MEDS: pantoprazole 40 mg SDV IVP (20:46)
--- NOTE | 2022-09-01 21:23 | USCV_ITS ---
Maria Teresa Woodruff Age: 87 Gender: F : 1935 Exam Date: 09/01/2022 10:34 Ordering Phys: Tin Salas MD Technologist: ROMAN [place] [facility] [place]: +VE DELTA TROP. ASSESS FOR RWMA BP: 149 / 64 HR: 70 Rhythm: Sinus Technical Quality: Adequate MEASUREMENTS (Male / Female) Normal Values 2D ECHO LVOT Diameter 2.0 cm LV Ejection Fraction MOD 2C 65.3 % LV Ejection Fraction 2C AL 64.0 % LA Diameter 4.3 cm LA Width 3.4 cm LA Height 4.9 cm RA Width 3.9 cm RA Height 5.8 cm Aorta at Sinotubular Diameter 2.4 cm IVC Diameter 2.9 cm M-MODE Aortic Annulus Diameter 2.5 cm LA Ao Ratio MM 1.6 MV E Point Septal Separation 0.5 cm DOPPLER Right Atrial Pressure 15.0 mmHg FINDINGS Left Ventricle This is a limited echo only. 2D only. No Doppler examination. The left ventricular size and function are normal. Ejection fraction 60%. Right Ventricle Normal right ventricular size and systolic function. Right Atrium Mildly increased right atrial size. Right atrial pressure 15 mmHg. Left Atrium Mildly increased left atrial size. Mitral Valve Structurally normal mitral valve. Aortic Valve Structurally normal trileaflet aortic valve. Tricuspid Valve Structurally normal tricuspid valve. Pulmonic Valve Pulmonic valve not well visualized. Pericardium No pericardial effusion. Aorta Normal aorta. IVC Inferior vena cava does not collapse normally with respiration. CONCLUSIONS Normal left ventricular size and function Increased right atrial pressure Biatrial enlargement Pulmonary artery pressure not measured. The previous echo was done only 1 month ago. The left ventricular function is the same. Pulmonary hypertension was not evaluated on this exam. Dr. Jon Moreland MD (Electronically Signed) Final Date: 01 September 2022 14:19 S
[2022-09-02] VITALS (10 sets, daily range): BP systolic 119–146; BP diastolic 54–70; PULSE 70–88; RESP 15–23; TEMP 36.4–37.2; O2SAT 91–96
--- NOTE | 2022-09-02 07:03 | PM.PN ---
Subjective Subjective: Overnight the patient's sensorium has cleared. This morning she is oriented. She remembers being at [facility] but not much after that. She remains in sinus rhythm. Vitals/I&O/Wt Last Vital Signs Temp 98.0 F 09/02/22 04:00 Pulse 79 09/02/22 05:57 Resp 16 09/02/22 04:00 BP 127/62 09/02/22 04:00 Pulse Ox 94 09/02/22 04:00 O2 Del Method 09/02/22 04:00 O2 Flow Rate 3 09/02/22 04:00 09/01/22 09/02/22 09/02/22 22:59 06:59 14:59 Output Total 100 / 100 500 / 600 Balance -100 / 140 -500 / -360 Weight last 48 hrs Weight 176 lb 9.6 oz Weight 176 lb 2 oz Weight 177 lb 2 oz Weight 170 lb Physical Exam Narrative: GENERAL: In general she is awake alert and oriented today HEENT: Exam within normal limits. NECK: Supple without jugular vein distention. The carotid upstroke is normal without bruits. BACK: Exam normal. LUNGS: Clear. HEART: Regular rate and rhythm. ABDOMEN: Benign without organomegaly or tenderness. EXTREMITIES: No edema. NEUROLOGIC: Exam normal. SKIN: Unremarkable. Urinary Catheter Management: Long: Cath Placed During This Visit: yes Reason for Continuing Indwelling Catheter: Acute Urinary Retention or Obstruction Urinary Catheter Date of Insertion: 08/31/22 Urinary Catheter Time of Insertion: 23:15 Data : 09/01/22 04:07 09/01/22 04:07 A&P Assessment and plan (1) Medication side effects present: (2) Elevated troponin: (3) Hallucinations, unspecified: (4) Acute encephalopathy: (5) Anemia: (6) Pulmonary hypertension: (7) COPD (chronic obstructive pulmonary disease): (8) History of pulmonary embolism: Plan Percent we have not seen any evidence of atrial fibrillation since her arrival. When she goes home, I would send her home off the beta-marie. I still do not know what her rhythm and rate were at [facility] when she was given the atropine. Obviously she needs to go home on the factor Xa inhibitor. Otherwise I do not recommend any changes. Attestations Medical Necessity Statement*: Hospitalization for acute mental status change. Coding Level of Care Code Established Pt Acute Finisher Plate for Garett Fwd Patient Type Established History Detailed Exam Detailed Medical Decision Making Moderate Complexity Diagnoses Medication side effects present T50.905A Elevated troponin R77.8 Hallucinations, unspecified R44.3 Acute encephalopathy G93.40 Anemia D64.9 Pulmonary hypertension I27.20 COPD (chronic obstructive pulmonary disease) J44.9 History of pulmonary embolism Z86.711
[2022-09-02] MEDS: venlafaxine ER (24HR) 150 mg Capsule PO (08:22)
[2022-09-02] MEDS: enoxaparin 80 mg/0.8 mL Syringe 77 MG SUBCUT ×2 (08:23→20:28)
[2022-09-02 12:17] LABS: ABG PH Result 7.31 (7.35-7.45); Alveolar-Arterial Oxygen Gradi 0.6 mmHg (5-10); Base Excess ABG 5.3 mmol/L (-2.0-2.0); Blood Gas Allen Test Pos; Blood Gas Sample Site Radial, left; Blood Gas Sample Type Arterial; Carboxyhemoglobin 1.5 %THgb (0.4-20.1); HCO3 ABG 32.9 mmol/L (22-26); HGB O2 Sat 90.7 % (95-100); Ionized Calcium Level - ABG 1.2 mmol/L (1.1-1.4); Methemoglobin 0.8 % (0.4-1.5); Oxygen Saturation ABG 92.9; PO2 ABG 66.9 mmHg (80.0-100.0); Potassium Level - ABG 4.3 mmol/L (3.5-5.0); Total Hemoglobin 10.1 g/dL (12-16)
[2022-09-02 12:17] LABS: Glucose Point of Care 162 mg/dL (70-110)
[2022-09-02 13:16] LABS: ABG PCO2 64.8 mmHg (35-45)
--- NOTE | 2022-09-02 13:59 | P.PN_ITS ---
Subjective Subjective: Patient was seen and examined this morning, mentation has improved significantly, when we attempted to walk her today she was very unsteady on her gait. Medications: Reviewed: Yes Medication Review Details: Generic Name Dose Route Start Last Admin Trade Name Freq PRN Reason Stop Dose Admin Hydrocodone Bitart /Acetaminophen 1 tab 09/01/22 09:41 09/01/22 17:13 Hydrocodone-Acet aminophen 5-325 Mg Tablet PO 1 tab Q4H PRN Administration MILD pain Atorvastatin Calci um 40 mg 09/01/22 21:00 09/01/22 20:14 Atorvastatin 40 Mg Tablet PO 40 mg BEDTIME LV Administration Enoxaparin Sodium 77 mg 08/31/22 21:23 09/02/22 08:23 Enoxaparin 80 Mg /0.8 Ml Syringe SUBCUT 77 mg Q12H LV Administration Gabapentin 600 mg 09/01/22 21:00 09/01/22 20:14 Gabapentin 300 M g Capsule PO 600 mg BEDTIME LV Administration Ondansetron HCl 4 mg 08/31/22 21:23 09/01/22 10:08 Ondansetron 2 Mg /Ml Sdv 2 Ml IVP 4 mg Q8H PRN Administration vomiting, or N/V if npo Pantoprazole Sodiu m 40 mg 08/31/22 21:23 09/01/22 20:46 Pantoprazole 40 Mg Sdv IVP 40 mg Q24H LV Administration Ropinirole HCl 4 mg 09/01/22 21:00 09/01/22 20:14 Ropinirole 2 Mg Tablet PO 4 mg BEDTIME LV Administration Venlafaxine HCl 150 mg 09/02/22 09:00 09/02/22 08:22 Venlafaxine Er ( 24hr) 150 Mg Capsu le PO 150 mg DAILY LV Administration Vitals/I&O/Wt Last Vital Signs Temp 97.9 F 09/02/22 12:00 Pulse 78 09/02/22 13:04 Resp 15 09/02/22 12:00 BP 146/70 09/02/22 12:00 Pulse Ox 96 09/02/22 13:04 O2 Del Method 09/02/22 07:55 O2 Flow Rate 3 09/02/22 07:55 FiO2 30 09/02/22 13:04 09/01/22 09/02/22 09/02/22 22:59 06:59 14:59 Output Total 100 / 100 500 / 600 Balance -100 / 140 -500 / -360 Weight last 48 hrs Weight 80.104 kg Weight 79.889 kg Weight 80.343 kg Weight 77.111 kg Physical Exam Const: COMMON NORMALS: patient oriented x3 Resp: COMMON NORMALS: clear to auscultation bilaterally AUSCULTATION: clear to auscultation bilaterally OTHER: Diminished air entry bilaterally Cardio: COMMON NORMALS: regular rate, regular rhythm, S1 normal heart sound present, S2 normal heart sound present, No gallops present (Cardio), No murmurs present (Cardio), No rub (Cardio) and Peripheral pulses 2+ throughout RATE: regular rate RHYTHM: regular rhythm HEART SOUNDS: S1 normal heart sound present and S2 normal heart sound present PERIPHERAL PULSES: Peripheral pulses 2+ throughout GI: COMMON NORMALS: Normal to inspection, nondistended, normoactive bowel soun ds present, Soft to palpation, non-tender, No hepatosplenomegaly present and no masses AUSCULTATION: Yes normoactive bowel sounds PALPATION: Yes Soft to palpation and Yes No hepatosplenomegaly present RECTAL EXAM: deferred Extremity: COMMON NORMALS: no clubbing, cyanosis or edema and no pedal edema Neuro: COMMON NORMALS: patient oriented x3 Urinary Catheter Management: Long: Cath Placed During This Visit: yes Reason for Continuing Indwelling Catheter: Acute Urinary Retention or Obstruction Urinary Catheter Date of Insertion: 08/31/22 Urinary Catheter Time of Insertion: 23:15 Data : 09/01/22 04:07 09/01/22 04:07 A&P Assessment and plan (1) Acute encephalopathy: Some progressive confusion noted in ER with suspected acute encephalopathy secondary to adverse effect of medication, in ER suspected anticholinergic symptom following atropine. She has received scopolamine, 2 doses 25 mg Benadryl, and 1 dose of 50 mg Benadryl. For now we will hold off additional medications. Discussed with we will also hold any of her other medications that may contribute to encephalopathy including ropinirole and she also is not able to safely take oral medications currently. Cardiac monitoring. Place Long catheter. One-to-one sitter due to risk of climbing out of bed. Assess UA (2) Bradycardia: So far without recurrence. Hold metoprolol. Hold nifedipine. Reported bradycardia in the 30s. She had also reported having some chest discomfort. Monitor on telemetry. If no significant events in the hospital, consider groundwater monitoring technician at discharge. Assess TSH (3) Chest pain: Reported some substernal, possibly epigastric chest pain. Possibly associated with bradycardia. Recently had work-up additionally due to troponin elevation, had undergone stress test with noted fixed abnormality, no acute ischemia. Was suspected to have had type II MO/demand ischemia. Currently unable to take oral medication, will give aspirin DC, complete tro ponin EKG series, obtain limited TTE to assess for any R WMA. Current positive troponin delta suspect may be related to heart rate changes, however, consider if additional work-up is warranted depending on results. (4) Chronic respiratory failure with hypoxia and hypercapnia: AM ABG: pH 7.31, PCO2 64, PO2 66, on 3 L oxygen Patient has a history of sleep apnea: She will benefit from BiPAP use. Plan CHF: Currently does not appear in exacerbation A. fib: Metoprolol currently on hold. Additional work-up of bradycardia, co nsideration of SSS as above. Currently unable to take oral medications, will transition anticoagulation to parenteral with Lovenox. History of DVT: Transition to relationship rental with naloxone as above. Resume Xarelto once able to resume oral medications. COPD: Currently does not appear in exacerbation, continue oxygen support. Discussed with currently confusion, not sure that she would tolerate NIPPV well tonight. Resume once able to tolerate. KIMBERLY RLS Other chronic morbidities Attestations Medical Necessity Statement*: Still in hospital for continued management of unsteady gait, physical therapy on board. Coding Level of Care Code Acute Sewer Inspector for Garett Fwcornell Exam Detailed Diagnoses Acute encephalopathy G93.40 Bradycardia R00.1 Chest pain R07.9 Chronic respiratory failure with hypoxia and hypercapnia J96.11; J96.12
[2022-09-02 15:13] LABS: Oxygen Device NC
[2022-09-02] MEDS: HYDROcodone-acetaminophen 5-325 mg Tablet 1 TAB PO (15:55)
[2022-09-02] MEDS: ropinirole 2 mg Tablet 4 MG PO (20:27)
[2022-09-02] MEDS: atorvastatin 40 mg Tablet PO (20:28)
[2022-09-02] MEDS: gabapentin 300 mg Capsule 600 MG PO (20:28)
[2022-09-02] MEDS: pantoprazole 40 mg SDV IVP (21:37)
[2022-09-03 04:00] VITALS: BP 170/71; PULSE 85; RESP 15; TEMP 36.6; O2SAT 94
[2022-09-03 06:00] VITALS: PULSE 89
[2022-09-03] MEDS: venlafaxine ER (24HR) 150 mg Capsule PO (07:48)
[2022-09-03] MEDS: enoxaparin 80 mg/0.8 mL Syringe 77 MG SUBCUT (07:48)
[2022-09-03] MEDS: HYDROcodone-acetaminophen 5-325 mg Tablet 1 TAB PO (07:51)
[2022-09-03 08:00] VITALS: BP 170/82; PULSE 77; PULSE 78; RESP 16; TEMP 36.4; O2SAT 97; O2SAT 98
--- NOTE | 2022-09-03 09:47 | PM.PN ---
Subjective Subjective: Maria Teresa's sensorium has cleared. She is awake alert and oriented. Today she tells me that her credit card, wallet and herman were somehow misplaced. She thinks perhaps her heart rate was high this morning. Currently the rhythm is difficult to assess because she is working with physical therapy and there is a significant amount of baseline artifact on the monitor. She offers no cardiac symptoms but she is a little unsteady on her feet when up walking. Currently she is walking using a walker with the help of physical therapy. Vitals/I&O/Wt Last Vital Signs Temp 97.6 F 09/03/22 08:00 Pulse 78 09/03/22 08:00 Resp 16 09/03/22 08:00 BP 170/82 09/03/22 08:00 Pulse Ox 98 09/03/22 08:00 O2 Del Method 09/03/22 08:00 O2 Flow Rate 3 09/03/22 08:00 FiO2 30 09/02/22 22:18 09/02/22 09/03/22 09/03/22 22:59 06:59 14:59 Intake Total 570 / 570 320 / 890 120 / 120 Output Total 550 / 550 600 / 1150 Balance -280 / -260 120 / 120 Weight last 48 hrs Weight 180 lb 3 oz Weight 176 lb 9.6 oz Physical Exam Narrative: GENERAL: In general she seems comfortable sitting at rest. HEENT: Exam within normal limits. NECK: Supple without jugular vein distention. The carotid upstroke is normal without bruits. BACK: Exam normal. LUNGS: Clear. HEART: Regular rate and rhythm. ABDOMEN: Benign without organomegaly or tenderness. EXTREMITIES: No edema. NEUROLOGIC: Exam normal. SKIN: Unremarkable. Urinary Catheter Management: Long: Cath Placed During This Visit: yes Reason for Continuing Indwelling Catheter: Acute Urinary Retention or Obstruction Urinary Catheter Date of Insertion: 08/31/22 Urinary Catheter Time of Insertion: 23:15 Data : 09/01/22 04:07 09/01/22 04:07 A&P Assessment and plan (1) Chronic respiratory failure with hypoxia and hypercapnia: (2) Medication side effects present: (3) Elevated troponin: (4) Hallucinations, unspecified: (5) Acute encephalopathy: (6) Pulmonary hypertension: (7) History of pulmonary embolism: Plan I still do not know what her rate and rhythm were at [facility] when she was given the atropine. To be safe I would probably leave the beta-marie off when she goes home. She has not had any significant tachycardia since she has been here. No other changes. Attestations Medical Necessity Statement*: Hospital stay for acute disorientation secondary to medication administration. Coding Level of Care Code Established Pt Acute Food Service Worker [facility] Patient Type Established History Detailed Exam Detailed Medical Decision Making Moderate Complexity Diagnoses Chronic respiratory failure with hypoxia and hypercapnia J96.11; J96.12 Medication side effects present T50.905A Elevated troponin R77.8 Hallucinations, unspecified R44.3 Acute encephalopathy G93.40 Pulmonary hypertension I27.20 History of pulmonary embolism Z86.711
--- NOTE | 2022-09-03 11:25 | PM.DCS ---
Discharge Providers Date of Admission: 09/01/22 14:41 Date of Discharge: September 03, 2022 Attending Provider at Admission: Tin Salas Attending Provider at Discharge: Garcia Lui MD Primary Care Provider: June Merchant Diagnoses at Discharge Discharge Diagnosis (1) Chronic respiratory failure with hypoxia and hypercapnia: Status: Acute (2) Medication side effects present: Status: Acute (3) Elevated troponin: Status: Acute (4) Hallucinations, unspecified: Status: Acute (5) Acute encephalopathy: Status: Acute (6) Pulmonary hypertension: Status: Acute (7) History of pulmonary embolism: Status: Acute Reason for Visit Reason for Visit: dizziness, weakness, bradycardia Hospital Course Hospital Course HPI:Tin Salas 87-year-old lady with history of atrial fibrillation, history of DVT, on chronic anticoagulation with Xarelto, COPD, using trilogy at night, 2 L oxygen, CHF with recent hospitalization, other comorbidities this morning was in usual state of health, yesterday had gone to [place] with her , today EMS was called as she was complaining of some substernal chest discomfort or possibly epigastric discomfort, she is reported to have been found to be bradycardic heart rates possibly as low as 30s.? In route to the hospital received atropine up to 3 mg.? In ER noted with progressive confusion, hallucinations, restless, trying to climb out of bed and not redirectable.?With concern of cholinergic symptoms following atropine in ER she started on scopolamine patch, received repeat doses of Benadryl.? Observation is requested due to ongoing confusion.? Heart rates noted currently in the 60s.? She is noted also to have rise in troponin, with chronically elevated baseline, but with positive delta currently from 57-68.84.? NT proBNP similar or lower than prior at 1065.? EKG with supraventricular bradycardia.? Nonspecific T wave abnormality. She was admitted for the management of acute encephalopathy likely secondary to medication side effect: During the hospital stay, her mentation gradually improved, at the time of discharge she was at her baseline mentation alert awake oriented x3, she has history of atrial fibrillation, was bradycardic on admission, cardiology was on board for metoprolol has been discontinued on discharge, she has been continued on anticoagulation, nifedipine has been continued, TSH was normal, electrolytes were monitored. She initially did complaint of chest pain which was more of epigastric pain, she was kept on PPI, GI cocktail Limited 2D echo was done: Normal left ventricular size and function ?Increased right atrial pressure ?Biatrial enlargement. As she has a recent 2D echo done in July: Mild left ventricular hypertrophy. Normal left ventricular size ?and systolic function, EF 57 %.?Mild biatrial enlargement.Mild mitral annular calcification. Trace mitral valve?regurgitation. ?Moderate tricuspid valve regurgitation.?Severe pulmonary embolism with an estimated pulmonary artery ?peak systolic pressure of 74 mmHg with a mean pressure of 48 ?mmHg.? Estimated right atrial pressure of 15 mmHg.?Mild pulmonary valve regurgitation.Later patient denied any chest pain. Patient was also managed for chronic hypoxic hypercapnic respiratory failure, he was kept on BiPAP to which he responded well to we will continue to use CPAP at home for her sleep apnea. Patient has long history of dysphagia, for which she was kept on dysphagia diet, she will need formal dysphagia work-up as outpatient, possibly barium study or esophagogram, for EGD. I will leave this to her primary care physician, patient has been informed about the same. Overall patient responded well to above medical management she was discharged in stable condition to home. Physical Exam Const: COMMON NORMALS: patient oriented x3 Resp: COMMON NORMALS: clear to auscultation bilaterally AUSCULTATION: clear to auscultation bilaterally OTHER: Diminished air entry bilaterally Cardio: COMMON NORMALS: regular rate, regular rhythm, S1 normal heart sound present, S2 normal heart sound present, No gallops present (Cardio), No murmurs present (Cardio), No rub (Cardio) and Peripheral pulses 2+ throughout RATE: regular rate RHYTHM: regular rhythm HEART SOUNDS: S1 normal heart sound present and S2 normal heart sound present PERIPHERAL PULSES: Peripheral pulses 2+ throughout GI: COMMON NORMALS: Normal to inspection, nondistended, normoactive bowel sounds present, Soft to palpation, non-tender, No hepatosplenomegaly present and no masses AUSCULTATION: Yes normoactive bowel sounds PALPATION: Yes Soft to palpation and Yes No hepatosplenomegaly present RECTAL EXAM: deferred Extremity: COMMON NORMALS: no clubbing, cyanosis or edema and no pedal edema Neuro: COMMON NORMALS: patient oriented x3 Urinary Catheter Management: Long: Cath Placed During This Visit: yes Reason for Continuing Indwelling Catheter: Acute Urinary Retention or Obstruction Urinary Catheter Date of Insertion: 08/31/22 Urinary Catheter Time of Insertion: 23:15 Discharge Data Studies Completed and Pending Completed Studies During Hospitalization Category Date Time Status XR chest 1V portable [id number] Stat Exams 08/31/22 15:22 Completed CV. echo limited [id number] Routine Ultrasound 09/01/22 21:23 Completed Pending at discharge Category Date Time Status BMP [Basic Metabolic Panel] AM LABS Lab 09/04/22 04:00 Ordered CBC Auto Diff [Complete Blood Count w/Auto] AM LABS Lab 09/04/22 04:00 Ordered Radiology Impressions Chest X-Ray 08/31/22 15:22 IMPRESSION: 1. No acute cardiopulmonary finding. 2. Mild cardiac enlargement unchanged. Laboratory Results WBC 7.7 10^3/uL (4.0-10.0) 09/01/22 04:07 RBC 3.62 10^6/uL (4.1-5.3) L 09/01/22 04:07 Hgb 9.5 g/dL (11.5-15.3) L 09/01/22 04:07 Hct 32.7 % (37.0-47.0) L 09/01/22 04:07 MCV 90.3 fl (81-99) 09/01/22 04:07 MCH 26.2 pg (28.0-34.0) L 09/01/22 04:07 MCHC 29.1 g/dL (30.0-36.0) L 09/01/22 04:07 RDW 16.7 % (12.1-15.1) H 09/01/22 04:07 Plt Count 198 10^3/cmm (130-400) 09/01/22 04:07 MPV 9.8 fL (7.4-10.4) 09/01/22 04:07 Neut % (Auto) 66.4 % 09/01/22 04:07 Lymph % (Auto) 21.4 % 09/01/22 04:07 Rogers % (Auto) 10.7 % 09/01/22 04:07 Eos % (Auto) 0.4 % 09/01/22 04:07 Baso % (Auto) 0.7 % 09/01/22 04:07 Neut # (Auto) 5.10 10^3/uL (1.8-7.7) 09/01/22 04:07 Lymph # (Auto) 1.6 10^3/uL (0.8-4.8) 09/01/22 04:07 Rogers # (Auto) 0.8 10^3/uL (0.2-0.9) 09/01/22 04:07 Eos # (Auto) 0.0 10^3/uL (0.0-0.8) 09/01/22 04:07 Baso # (Auto) 0.1 10^3/uL (0.0-0.1) 09/01/22 04:07 Nucleated RBC % (auto) 0 % 09/01/22 04:07 Nucleated RBCs # 0.0 /100WBC 09/01/22 04:07 Specimen Type Arterial 09/02/22 12:08 Sample Site Radial, left 09/02/22 12:08 ABG pH 7.31 (7.35-7.45) L 09/02/22 12:08 ABG pCO2 64.8 mmHg (35-45) H* 09/02/22 12:08 ABG pO2 66.9 mmHg (80.0-100.0) L 09/02/22 12:08 ABG HCO3 32.9 mmol/L (22-26) H 09/02/22 12:08 ABG O2 Saturation 92.9 09/02/22 12:08 ABG Base Excess 5.3 mmol/L (-2.0-2.0) H 09/02/22 12:08 Seng Test Pos 09/02/22 12:08 A-a O2 Gradient 0.6 mmHg (5-10) L 09/02/22 12:08 Hematocrit 31.0 % (37-47) L 09/02/22 12:08 Hgb O2 Saturation 90.7 % (95-100) L 09/02/22 12:08 Carboxyhemoglobin 1.5 %THgb (0.4-20.1) 09/02/22 12:08 Methemoglobin 0.8 % (0.4-1.5) 09/02/22 12:08 Total Hemoglobin 10.1 g/dL (12-16) L 09/02/22 12:08 Sodium 139.0 mmol/L (131-143) 09/02/22 12:08 Potassium 4.3 mmol/L (3.5-5.0) 09/02/22 12:08 Glucose 164.0 mg/dL (70-115) H 09/02/22 12:08 Ionized Calcium 1.2 mmol/L (1.1-1.4) 09/02/22 12:08 O2 Delivery Device Nc 09/02/22 12:08 O2 Liters/Min 3.0 % 09/02/22 12:08 Orange Picker Machine Operator ID Drake 09/02/22 12:08 Sodium 138 mmol/L (136-145) 09/01/22 04:07 Potassium 4.7 mmol/L (3.5-5.1) 09/01/22 04:07 Chloride 99 mmol/L (98-107) 09/01/22 04:07 Carbon Dioxide 29 mmol/L (22-29) 09/01/22 04:07 Anion Gap 14.7 (5-19) 09/01/22 04:07 BUN 36 mg/dL (8-23) H 09/01/22 04:07 Creatinine 1.4 mg/dL (0.5-0.9) H 09/01/22 04:07 GFR Calculation Not Reportable 09/01/22 04:07 Glucose 71 mg/dL (65-115) 09/01/22 04:07 POC Glucose 162 mg/dL (70-110) H 09/02/22 12:14 Calculated Osmolality 293 mOsm/kg (285-295) 09/01/22 04:07 Calcium 9.0 mg/dL (8.5-10.5) 09/01/22 04:07 Total Bilirubin 0.4 mg/dL (0.15-1.2) 09/01/22 04:07 AST 31 U/L (0-32) 09/01/22 04:07 ALT 14 U/L (0-33) 09/01/22 04:07 Alkaline Phosphatase 227 U/L (35-105) H 09/01/22 04:07 Troponin T Baseline 57 ng/L (0-10) H 08/31/22 15:40 Troponin T 120 Minute 68.84 ng/L (0-10) H 08/31/22 17:41 Delta Troponin T 11.84 ABS# (0-10) H* 08/31/22 17:41 Troponin T Hi Sens 6Hr 73.41 ng/L (0-10) H 08/31/22 22:12 Troponin T Hi Sens 6Hr Delta 16.41 ng/L (0-12) H* 08/31/22 22:12 NT-Pro-B Natriuret Pep 1065 pg/mL (0-450) H 08/31/22 15:40 Total Protein 6.2 g/dL (6.6-8.7) L 09/01/22 04:07 Albumin 3.5 g/dL (3.5-5.2) 09/01/22 04:07 Globulin 2.7 g/dL (1.3-4.6) 09/01/22 04:07 Lipase 16 U/L (13-60) 09/01/22 04:07 TSH 1.18 uIU/mL (0.27-4.20) 08/31/22 17:48 Urine Color Dark yellow (Yellow) 08/31/22 23:15 Urine Appearance Sl hazy (CLEAR) A 08/31/22 23:15 Urine pH 5 (5-7) 08/31/22 23:15 Ur Specific [place] 1.020 (1.005-1.030) 08/31/22 23:15 Urine Protein 1+ (Negative) H 08/31/22 23:15 Urine Glucose (UA) Norm (Normal) 08/31/22 23:15 Urine Ketones 1+ (Negative) H 08/31/22 23:15 Urine Blood Neg (Negative) 08/31/22 23:15 Urine Nitrate Negative (Negative) 08/31/22 23:15 Urine Bilirubin 1+ (Negative) H 08/31/22 23:15 Urine Urobilinogen Norm mg/dL (Negative) 08/31/22 23:15 Ur Leukocyte Esterase 1+ (Negative) H 08/31/22 23:15 Urine RBC 0-4 /hpf (0-2) H 08/31/22 23:15 Urine WBC 5-10 /hpf (0-5) H 08/31/22 23:15 Ur Squamous Epith Cells 10-15 /hpf (0-5) H 08/31/22 23:15 Ur Renal Epithelial Cell 0-2 /hpf 08/31/22 23:15 Amorphous Sediment 2+ /hpf 08/31/22 23:15 Urine Bacteria Trace /hpf (NONE) 08/31/22 23:15 Hyaline Casts 5-10 /lpf H 08/31/22 23:15 Fine Granular Casts 0-4 /lpf H 08/31/22 23:15 Coarse Granular Casts 0-4 /lpf H 08/31/22 23:15 Vitals Last Vital Signs Temp 97.6 F 09/03/22 08:00 Pulse 78 09/03/22 08:00 Resp 16 09/03/22 08:00 BP 170/82 09/03/22 08:00 Pulse Ox 98 09/03/22 08:00 O2 Del Method 09/03/22 08:00 O2 Flow Rate 3 09/03/22 08:00 FiO2 30 09/02/22 22:18 Discharge Plan Discharge Patient Disposition: Home Condition: Stable Prescriptions: Continued ropinirole 4 mg tablet 4 mg PO BEDTIME venlafaxine 150 mg tablet extended release 24hr 150 mg PO DAILY ergocalciferol (vitamin D2) 1,250 mcg (50,000 unit) capsule 1,250 mcg PO Q7D Rx Instructions: (ON WEDNESDAY) clobetasol 0.05 % gel 1 applic topical DAILY nifedipine 30 mg tablet extended release 30 mg PO DAILY Qty: 90 3RF pantoprazole [Protonix] 20 mg tablet,delayed release (DR/EC) 20 mg PO DAILY Qty: 20 4RF nitroglycerin 0.4 mg tablet, sublingual 0.4 mg sublingual Q5M PRN (Reason: chest pain) Qty: 25 0RF Rx Instructions: do not exceed 3 doses per episode atorvastatin 40 mg Tablet 40 mg PO BEDTIME Qty: 90 0RF ondansetron HCl 8 mg Tablet 8 mg PO Q8H PRN (Reason: Nausea) ascorbic acid (vitamin C) [Vitamin C] 500 mg Tablet 1,000 mg PO DAILY gabapentin 300 mg Capsule 600 mg PO BEDTIME Zinc (with A and C) Lozenges Lozenge 1 gilbert PO DAILY hydrocodone-acetaminophen 5-325 mg tablet 1 - 2 tab PO Q4H PRN (Reason: pain) Xarelto 20 mg Tablet 20 mg PO DAILY Rx Instructions: take with evening meal Discontinued potassium chloride 10 mEq capsule, extended release 10 meq PO BID Xarelto 20 mg tablet 20 mg PO DAILY Qty: 30 0RF Hold Instructions: Resume on 10/22/21. Rx Instructions: must administer with evening meal 340b metoprolol tartrate 25 mg tablet 25 mg PO BID Qty: 60 2RF Discharge Orders: Discharge Order (Routine); Ordered 09/03/22 Ordered By: Garcia Lui Referrals: June Merchant [Primary Care Provider] - 09/09/22 2:00 pm Patient Instructions: Heart Failure (GEN), Coronary Artery Disease (GEN), Opioid Safety Discharge Attestations Time Spent in Discharge Care*: less than 30 min Quality Metrics Clinical Quality Measures [ No reported AMI, CVA or VTE this stay] Coding Level of Care Code Acute Chg FW DC note Diagnoses Chronic respiratory failure with hypoxia and hypercapnia J96.11; J96.12 Medication side effects present T50.905A Elevated troponin R77.8 Hallucinations, unspecified R44.3 Acute encephalopathy G93.40 Pulmonary hypertension I27.20 History of pulmonary embolism Z86.711
[2022-09-03 11:37] VITALS: BP 151/70; PULSE 65; RESP 16; TEMP 36.5; O2SAT 92
== END 2022-09-03 13:28 | disposition home or self-care (01) | DRG 92 ==
LOC: ER 16:18 → MEDSURG 20:09
PROVIDERS: Internal Medicine; Admitting Provider Internal Medicine; Emergency Provider Student in an Organized Health Care Education/Training Program; PCP Nurse Practitioner Family; Visit Provider Internal Medicine
DX: G92.8 Other toxic encephalopathy (principal); I13.0 Hypertensive heart and chronic kidney disease with heart failure and stage 1 through stage 4 chronic kidney disease, or unspecified chronic kidney disease; I5A Non-ischemic myocardial injury (non-traumatic); J96.12 Chronic respiratory failure with hypercapnia; J96.11 Chronic respiratory failure with hypoxia; N18.9 Chronic kidney disease, unspecified; T44.3X5A Adverse effect of other parasympatholytics [anticholinergics and antimuscarinics] and spasmolytics, initial encounter; Y92.89 Other specified places as the place of occurrence of the external cause; I50.9 Heart failure, unspecified; R00.1 Bradycardia, unspecified; R26.81 Unsteadiness on feet; R77.8 Other specified abnormalities of plasma proteins; R07.89 Other chest pain; R10.13 Epigastric pain; R13.10 Dysphagia, unspecified; I48.91 Unspecified atrial fibrillation; I25.10 Atherosclerotic heart disease of native coronary artery without angina pectoris; I27.20 Pulmonary hypertension, unspecified; J44.9 Chronic obstructive pulmonary disease, unspecified; D64.9 Anemia, unspecified; E78.5 Hyperlipidemia, unspecified; M54.16 Radiculopathy, lumbar region; G47.33 Obstructive sleep apnea (adult) (pediatric); G25.81 Restless legs syndrome; Z95.5 Presence of coronary angioplasty implant and graft; Z90.710 Acquired absence of both cervix and uterus; Z86.711 Personal history of pulmonary embolism; Z86.718 Personal history of other venous thrombosis and embolism; Z79.01 Long term (current) use of anticoagulants; Z85.44 Personal history of malignant neoplasm of other female genital organs; Z98.1 Arthrodesis status; Z87.891 Personal history of nicotine dependence; Z99.81 Dependence on supplemental oxygen; Z99.89 Dependence on other enabling machines and devices; Z79.899 Other long term (current) drug therapy
CPT/HCPCS: 36416; 36600; 51702; 71045; 80051; 80053; 81001; 82330; 82805; 82962; 83690; 83880; 84443; 84484; 85025; 92507; 92523; 92526; 92610; 93005; 93308; 96372; 96374; 96375; 97116; 97161; 97530; 99285; C9113; G0378; J1200; J1650; J2405; J3490

== ENCOUNTER → 2023-01-05 11:00 | Outpatient (BNVA) | payer MEDICARE, SELFPAY | PROVIDERS: PCP Nurse Practitioner Family; Visit Provider Internal Medicine Cardiovascular Disease | DX: R07.89 Other chest pain (principal); R06.02 Shortness of breath; I11.0 Hypertensive heart disease with heart failure; I50.30 Unspecified diastolic (congestive) heart failure; I48.91 Unspecified atrial fibrillation; Z79.01 Long term (current) use of anticoagulants; Z87.891 Personal history of nicotine dependence | CPT/HCPCS: 36415; 80048; 83880; 85025; 99214 ==

== ENCOUNTER 2023-04-02 07:20 | Outpatient (CLI) | payer MEDICARE, SELFPAY ==
--- NOTE | 2023-04-02 07:37 | CT_ITS ---
WS: [id number] CT HEAD NONCONTRAST HISTORY: HEADACHE TECHNIQUE: Contiguous axial imaging performed through the brain in 2.5 mm imaging. Bone and soft tiss ue windows. Sagittal and coronal reformats reviewed. All CT scans at [facility] use at least one of these dose optimization techniques: automated exposure control; mA and/or kV adjustment per pa tient size (includes targeted exams where dose is matched to clinical indication); or iterative recon struction. DLP: 1026.25 mGy.cm COMPARISON: None available. No acute intracranial hemorrhage, midline shift or mass effect. Moderate atrophy and small vessel ischemic disease. Mild cerebellar atrophy. Ventricles: Normal size with no hydrocephalus. No inferior displacement of cerebellar tonsils. Paranasal sinuses: As visualized are clear. Mastoid air cells: Well pneumatized. Calvarium and scalp: Skull is intact with no soft tissue edema or swelling. No RIGHT rib fractures identified. Very minimal residual soft tissue thickening related to the hemato ma and recent injury surrounding the orbit. CT/CT head wo con* [id number] IMPRESSION: 1. No acute intracranial hemorrhage or edema. 2. No fractures surrounding the RIGHT orbit. Minimal residual soft tissue thic kening from the recent injury.
== END 2023-04-02 07:21 | disposition home or self-care (01) ==
LOC: RAD 07:27
PROVIDERS: PCP Nurse Practitioner Family; Visit Provider Nurse Practitioner Family
DX: R51.9 Headache, unspecified (principal)
CPT/HCPCS: 70450

== ENCOUNTER 2023-04-22 21:05 | Emergency (ER) | payer MEDICARE, SELFPAY ==
[2023-04-22 21:14] VITALS: BP 94/59; PULSE 97; RESP 16; TEMP 36.4; O2SAT 94
--- NOTE | 2023-04-22 22:07 | W.ED.CHESTPA ---
HPI - Chest Pain General: Chief Complaint: Chest Pain Stated Complaint: Chest Pain Time Seen by Provider: 04/22/23 22:06 History of Present Illness: Ms. Woodruff is an 88-year-old lady with complex past medical history presented to the emergency department due to chest and back pain. She notes feeling generally unwell for the past few days and fell backwards while watering the plants. Denies head strike or loss of consciousness. Since that time however she has had pain on her back. Today she had more pain around the front and rib area on the left side and left under breast. Intensity is moderate. Course has persisted. Worse with inspiration and movement. No other specific changes in health, exacerbating, or alleviating factors identified. Onset (ago): day(s) Severity: moderate Quality: aching and sharp Exacerbating factors: inspiration, palpation and movement Review of Systems General: Reports: 10 or more systems reviewed and unremarkable except in HPI and below PFSH ED PFSH: Medical History Acute blood loss anemia (ABLA) Acute encephalopathy Acute on chronic respiratory failure with hypoxia and hypercapnia Anemia Atrial fibrillation Bradycardia Chest pain Chest pain Chronic back pain Chronic respiratory failure with hypoxia and hypercapnia Congestive heart failure COPD (chronic obstructive pulmonary disease) Uses trilogy at night with 2 L. Typically not on oxygen during day. Coronary artery disease Depression Depression with anxiety DVT (deep venous thrombosis) Dysphagia Dysphagia Dyspnea or other respiratory complaints Elevated troponin Fusion of spine Hallucinations, unspecified History of cancer of vulva History of pulmonary embolism Hx of blood clots Hyperlipidemia Hypertension Lumbar radiculopathy Medication side effects present Melanotic stools Obstructive sleep apnea Post-op pain Pulmonary embolism Pulmonary hypertension Restless leg syndrome Surgical History H/O: hysterectomy History of back surgery History of coronary artery stent placement History of hip replacement History of knee replacement History of tonsillectomy Presence of vena cava filter Family History Other Cancer Chronic back pain Social History Smoking and tobacco status: former smoker Alcohol intake: current Alcohol intake frequency: few times a month Caregiver/support person: Yes Lives independently: Yes Household members: spouse Housing: House Physical Exam Const: COMMON NORMALS: alert GENERAL APPEARANCE: cooperative and well developed HENMT: COMMON NORMALS: normocephalic and atraumatic HEAD & SCALP: normocephalic and atraumatic Eye: COMMON NORMALS: conjunctivae normal CONJUNCTIVA: Yes conjunctivae normal SCLERA: sclerae normal Neck/C-Spine: COMMON NORMALS: supple GENERAL: Yes trachea midline Resp: COMMON NORMALS: normal respiratory effort EFFORT & INSPECTION: Yes able to speak in complete sentences Cardio: COMMON NORMALS: regular rate and regular rhythm RATE: regular rate RHYTHM: regular rhythm GI: COMMON NORMALS: Soft to palpation PALPATION: Yes Soft to palpation and No Tenderness to palpation present (GI) Extremity: GENERAL: Yes normal exam except as noted and No edema Neuro: COMMON NORMALS: moves all extremities SENSORIUM/ORIENTATION: Yes alert and No Orientation impaired Psych: COMMON NORMALS: mental status grossly normal and Normal thought process present THOUGHT PROCESS: Normal thought process present Course Vital Signs: Vital signs: Vital Signs Temperature 97.6 F 04/23/23 00:29 Pulse Rate 89 04/23/23 00:29 Respiratory Rate 16 04/23/23 00:29 Blood Pressure 136/55 04/23/23 00:29 Pulse Oximetry 99 04/23/23 00:29 Oxygen Delivery Me thod Nasal Cannula 04/22/23 23:06 Oxygen Flow Rate 3 04/22/23 23:06 MDM - Chest Pain Medical Decision Making 88-year-old lady presenting with chest pain and back pain post fall. Exam as above. Head to toe exam performed. Labs with no significant hematologic or metabolic abnormalities. Initial troponin is similar to baseline with greater than 6 hours of symptoms. Patient declines repeat to ensure not increasing. Negative COVID. Chest x-ray negative however low sensitivity for pathology. Given physical exam CT imaging is appropriate. No acute traumatic injuries identified. Lung nodule with need for follow-up discussed with patient. Patient treated with GI cocktail, fluids, Toradol, aspirin and feels improved. Patient had a negative stress test within the past year and given exam and clinical history does not require inpatient cardiac work-up. The results of ED evaluation were discussed with the patient including prescriptions and/or symptomatic cares (if applicable) including appropriate and responsible use, followup plan, and return precautions. The patient verbalized understanding and felt safe for discharge. Medical Records I reviewed the patient's medical records. Lab Data I reviewed the patient's lab results. 04/22/23 22:34 04/22/23 22:34 Radiology Impressions Chest X-Ray 04/22/23 22:08 IMPRESSION: No acute findings. Chest CT 04/22/23 22:22 IMPRESSION: 1. No acute findings. 2. Slightly larger 1.6 cm irregular nodule in the left lower lobe. Highly suspicious nodule(s). Consider non-emergent PET/CT, or tissue sampling.(Reference: Loy) References: Loy Teixeira et al. Guidelines for Management of Incidental Pulmonary Nodules Detected on CT Images: From the Fleischner Society 2017. Radiology. 2017;284(1):228-243. COMMENTS: 1. Consistent with the [employer]'s Incidental Findings Committee white paper (J Am Mckay Radiol 2018): Any incidental renal lesion less than 1 cm or classified as too small to characterize, or any incidental cystic renal lesion characterized as simple-appearing, is likely benign. No follow-up imaging is recommended for these lesions per consensus recommendations based on imaging criteria. 2. Consistent with the [employer]'s Incidental Findings Committee white paper (J Am Mckay Radiol 2015): In patients aged 35 years and older with an incidental thyroid nodule equal to or greater than 1.[address], MRI or extrathyroidal US, further evaluation with dedicated thyroid US is recommended for patients with normal life expectancy and without comorbidities. For smaller nodules without suspicious features, no further evaluation or follow up is recommended. Laboratory Results WBC 6.9 10^3/uL (4.0-10.0) 04/22/23 22:34 RBC 4.33 10^6/uL (4.1-5.3) 04/22/23 22:34 Hgb 13.1 g/dL (11.5-15.3) 04/22/23 22:34 Hct 42.1 % (37.0-47.0) 04/22/23 22:34 MCV 97.2 fl (81-99) 04/22/23 22:34 MCH 30.3 pg (28.0-34.0) 04/22/23 22:34 MCHC 31.1 g/dL (30.0-36.0) 04/22/23 22:34 RDW 14.9 % (12.1-15.1) 04/22/23 22:34 Plt Count 188 10^3/cmm (130-400) 04/22/23 22:34 MPV 9.4 fL (7.4-10.4) 04/22/23 22:34 Neut % (Auto) 71.0 % 04/22/23 22:34 Lymph % (Auto) 19.9 % 04/22/23 22:34 [place] % (Auto) 7.9 % 04/22/23 22:34 Eos % (Auto) 0.6 % 04/22/23 22:34 Baso % (Auto) 0.3 % 04/22/23:34 Neut # (Auto) 4.87 10^3/uL (1.8-7.7) 04/22/23: Lymph # (Auto) 1.4 10^3/uL (0.8-4.8) 04/22/23:34 [place] # (Auto) 0.5 10^3/uL (0.2-0.9) 04/22/23 22:34 Eos # (Auto) 0.0 10^3/uL (0.0-0.8) 04/22/23 22:34 Baso # (Auto) 0.0 10^3/uL (0.0-0.1) 04/22/23:34 Nucleated RBC % (auto) 0 % 04/22/23: Nucleated RBCs # 0.0 /100WBC 04/22/23 22:34 Sodium 140 mmol/L (136-145) 04/22/23 22:34 Potassium 4.3 mmol/L (3.5-5.1) 04/22/23 22:34 Chloride 103 mmol/L (98-107) 04/22/23 22:34 Carbon Dioxide 26 mmol/L (22-29) 04/22/23:34 Anion Gap 15.3 (5-19) 04/22/23 22: BUN 23 mg/dL (8-23) 04/22/23 22:34 Creatinine 0.6 mg/dL (0.5-0.9) 04/22/23 22:34 GFR Calculation Not Reportable 04/22/23 22: Glucose 81 mg/dL (65-115) 04/22/23 22:34 Calculated Osmolality 293 mOsm/kg (285-295) 04/22/23 22:34 Calcium 9.6 mg/dL (8.5-10.5) 04/22/23 22:34 Total Bilirubin 0.5 mg/dL (0.15-1.2) 04/22/23 22:34 AST 26 U/L (0-32) 04/22/23 22:34 ALT 18 U/L (0-33) 04/22/23 22:34 Alkaline Phosphatase 163 U/L (35-105) H 04/22/23 22:34 Troponin T Baseline 53 ng/L (0-10) H 04/22/23 22:34 NT-Pro-B Natriuret Pep 592 pg/mL (0-450) H 04/22/23 22:34 Total Protein 6.4 g/dL (6.6-8.7) L 04/22/23 22:34 Albumin 3.9 g/dL (3.5-5.2) 04/22/23 22:34 Globulin 2.5 g/dL (1.3-4.6) 04/22/23 22:34 Lipase 20 U/L (13-60) 04/22/23 22:34 SARS-CoV-2 Ag (Rapid) negative (Negative) 04/22/23 23:05 Discharge Plan Discharge Patient Disposition: Home Clinical Impression: Back pain, Chest pain, Pulmonary nodule 1 cm or greater in diameter Condition: Stable Prescriptions: No Action ropinirole 4 mg tablet 4 mg PO BEDTIME venlafaxine 150 mg tablet extended release 24hr 150 mg PO DAILY ergocalciferol (vitamin D2) 1,250 mcg (50,000 unit) capsule 1,250 mcg PO Q7D Rx Instructions: (ON WEDNESDAY) clobetasol 0.05 % gel 1 applic topical DAILY potassium chloride 10 mEq capsule, extended release 10 meq PO DAILY furosemide 20 mg tablet 20 mg PO DAILY magnesium oxide 250 mg magnesium tablet 250 mg PO DAILY ranolazine [Ranexa] 500 mg tablet extended release 12 hr 500 mg PO BID 60 Days Qty: 120 5RF nifedipine 30 mg tablet extended release 30 mg PO DAILY Qty: 90 3RF Xarelto 20 mg tablet 20 mg PO DAILY Qty: 90 3RF Rx Instructions: 340B pantoprazole [Protonix] 20 mg tablet,delayed release (DR/EC) 20 mg PO DAILY Qty: 20 4RF nitroglycerin 0.4 mg tablet, sublingual 0.4 mg sublingual Q5M PRN (Reason: chest pain) Qty: 25 0RF Rx Instructions: do not exceed 3 doses per episode atorvastatin 40 mg Tablet 40 mg PO BEDTIME Qty: 90 0RF ondansetron HCl 8 mg Tablet 8 mg PO Q8H PRN (Reason: Nausea) ascorbic acid (vitamin C) [Vitamin C] 500 mg Tablet 1,000 mg PO DAILY gabapentin 300 mg Capsule 600 mg PO BEDTIME Zinc (with A and C) Lozenges Lozenge 1 gilbert PO DAILY hydrocodone-acetaminophen 5-325 mg tablet 1 - 2 tab PO Q4H PRN (Reason: pain) Discharge Orders: Discharge ED (Routine); Ordered 04/23/23 Ordered By: Corey Cabrera Referrals: June Merchant [Primary Care Provider] - Discharge Diet: Usual diet Discharge Activity: Increase activity as tolerated Patient Instructions: Chest Pain (ED), Pulmonary Nodules (ED), Back Pain (ED) Activity Restrictions/Additional Instructions: Thank you for visiting the emergency department. You were seen and evaluated for chest and back pain. The exact cause of your symptoms is unclear however we are pleased that you had improvement. As discussed your cardiac marker appears similar to baseline though repeat would ensure stability which you are declining at this time. Incidentally you are noted to have a slightly larger 1.6 cm irregular nodule in the left lower lobe of the lung. Recommend PET CT scan which can be arranged by your primary care provider or comparison with prior imaging for further evaluation with possible referral for pulmonology evaluation. You may use [id number] medications such as acetaminophen and ibuprofen for pain however please do not exceed the daily recommended dosage as listed on the packaging and please keep in mind that many namebrand medications contain the same active ingredients. Please avoid these medications if previously instructed to do so by another physician due to other underlying medical condition. Return to the emergency department for anything that you are concerned about and feel needs emergency department evaluation. Coding Level of Care Code ED Surface Supervisor for Garett Leija
--- NOTE | 2023-04-22 22:08 | XRR_ITS ---
PROCEDURE INFORMATION: Exam: XR Chest Exam date and time: 04/22/2023 10:13 PM Age: 88 years old Clinical indication: Pain; Chest pressure; Additional info: Cp TECHNIQUE: Imaging protocol: Radiologic exam of the chest. Views: 1 view. COMPARISON: CR XR chest 1V portable [id number] 08/31/2022 3:32 PM FINDINGS: Lungs: Interstitial scarring in the lung bases. No consolidation. Pleural spaces: Unremarkable. No pleural effusion. No pneumothorax. Heart/Mediastinum: Unremarkable. No cardiomegaly. Bones/joints: Thoracolumbar fusion hardware. Thoracolumbar scoliosis. Severe degenerative changes of the glenohumeral joints. XR/XR chest 1V portable [id number] IMPRESSION: No acute findings.
--- NOTE | 2023-04-22 22:22 | CTR_ITS ---
PROCEDURE INFORMATION: Exam: CT Chest Without Contrast; Diagnostic Exam date and time: 04/22/2023 10:38 PM Age: 88 years old Clinical indication: Injury or trauma; Blunt trauma (contusions or hematomas); Prior surgery; Surgery date: 6+ months; Surgery type: Coronary stent. Spinal fusion; Patient HX: Fall. C/O left rib and upper back pain. History of lung cancer, chf, and copd. ; Additional info: Fall, back and chest pain TECHNIQUE: Imaging protocol: Diagnostic computed tomography of the chest without contrast. Radiation optimization: All CT scans at this facility use at least one of these dose optimization techniques: automated exposure control; mA and/or kV adjustment per patient size (includes targeted exams where dose is matched to clinical indication); or iterative reconstruction. REPORTING DATA: Count of CT and Cardiac NM exams in prior 12 months: This patient has received 3 known CTs and 0 known cardiac nuclear medicine studies in the 12 months prior to the current study. COMPARISON: [place] [id number] 08/01/2022 6:37 PM RADIATION DOSE METRICS: Total DLP (mGy-cm): 331.28 FINDINGS: Thyroid: 1.3 cm right thyroid nodule. No follow-up imaging recommended. Lungs: Emphysema. Slightly larger 1.6 cm irregular nodule in the left lower lobe. Mild scattered atelectasis and scarring in both lungs. Pleural spaces: Unremarkable. No pneumothorax. No pleural effusion. Heart: Mitral annulus calcifications. The heart size is normal. Coronary arteries: Mild coronary artery calcifications. Lymph nodes: Prominent mediastinal and hilar lymph nodes are most likely reactive. Vasculature: Unremarkable. No aortic aneurysm. Spleen: Calcified granulomas in the spleen. Adrenal glands: Stable 2.0 cm left adrenal nodule, Hounsfield units less than 10. This is consistent with a benign adenoma. Kidneys and ureters: Left renal cyst, Hounsfield units less than 20. No follow-up imaging recommended. Bones/joints: Fusion hardware in the lower thoracic and lumbar spine. Thoracolumbar curvature and degenerative changes. No acute fracture. Severe degenerative changes of the bilateral shoulders. Large right shoulder effusion. Soft tissues: Unremarkable. CT/CT chest wo con [id number] IMPRESSION: 1. No acute findings. 2. Slightly larger 1.6 cm irregular nodule in the left lower lobe. Highly suspicious nodule(s). Consider non-emergent PET/CT, or tissue sampling.(Reference: Loy) References: Loy Teixeira et al. Guidelines for Management of Incidental Pulmonary Nodules Detected on CT Images: From the Fleischner Society 2017. Radiology. 2017;284(1):228-243. COMMENTS: 1. Consistent with the [place] [employer]'s Incidental Findings Committee white paper (J Am Mckay Radiol 2018): Any incidental renal lesion less than 1 cm or classified as too small to characterize, or any incidental cystic renal lesion characterized as simple-appearing, is likely benign. No follow-up imaging is recommended for these lesions per consensus recommendations based on imaging criteria. 2. Consistent with the [place] [employer]'s Incidental Findings Committee white paper (J Am Mckay Radiol 2015): In patients aged 35 years and older with an incidental thyroid nodule equal to or greater than 1.[address], MRI or extrathyroidal US, further evaluation with dedicated thyroid US is recommended for patients with normal life expectancy and without comorbidities. For smaller nodules without suspicious features, no further evaluation or follow up is recommended.
[2023-04-22] MEDS: aspirin 81 mg Chew Tablet 324 MG PO (22:27)
[2023-04-22 22:48] LABS: Basophils % 0.3 %; Eosinophils % 0.6 %; Hematocrit 42.1 % (37.0-47.0); Hemoglobin 13.1 g/dL (11.5-15.3); Lymphocytes # 1.4 10^3/uL (0.8-4.8); Lymphocytes % 19.9 %; Mean Corpuscular HGB Conc 31.1 g/dL (30.0-36.0); Mean Corpuscular Hemoglobin 30.3 pg (28.0-34.0); Mean Corpuscular Volume 97.2 fl (81-99); Mean Platelet Volume 9.4 fL (7.4-10.4); Monocytes # 0.5 10^3/uL (0.2-0.9); Monocytes % 7.9 %; Neutrophils # 4.87 10^3/uL (1.8-7.7); Nucleated Red Blood Cells % 0 %; Platelet Count 188 10^3/cmm (130-400); Red Blood Count 4.33 10^6/uL (4.1-5.3); Red Cell Distribution Width 14.9 % (12.1-15.1); White Blood Count 6.9 10^3/uL (4.0-10.0)
[2023-04-22 23:06] VITALS: BP 136/55; PULSE 86; RESP 16; O2SAT 90
[2023-04-22 23:11] LABS: Troponin(5th) Baseline 53 ng/L (0-10)
[2023-04-22] MEDS: ketorolac 30 mg/mL INJ 15 MG IVP (23:18)
[2023-04-22 23:20] LABS: Alanine Aminotransferase 18 U/L (0-33); Albumin Level 3.9 g/dL (3.5-5.2); Alkaline Phosphatase 163 U/L (35-105); Anion Gap 15.3 (5-19); Aspartate Amino Transferase 26 U/L (0-32); Blood Urea Nitrogen 23 mg/dL (8-23); Calcium 9.6 mg/dL (8.5-10.5); Carbon Dioxide 26 mmol/L (22-29); Chloride 103 mmol/L (98-107); Globulin 2.5 g/dL (1.3-4.6); Glucose 81 mg/dL (65-115); Lipase 20 U/L (13-60); NT Pro B Type Natriuretic Pept 592 pg/mL (0-450); Osmolality Calculated 293 mOsm/kg (285-295); Potassium 4.3 mmol/L (3.5-5.1); Sodium 140 mmol/L (136-145); Total Bilirubin 0.5 mg/dL (0.15-1.2); Total Protein 6.4 g/dL (6.6-8.7)
[2023-04-22 23:24] LABS: SARS Covid-2 Antigen negative (Negative)
[2023-04-23 00:29] VITALS: BP 136/55; PULSE 89; RESP 16; TEMP 36.4; O2SAT 99
--- NOTE | 2023-04-23 00:31 | PC.NURSE ---
RN went into room to answer call light for pt. Pt stated that she feels much better and chest pain is gone. RN notified MD. MD verbally stated that GI cocktail and fluid bolus do not need administered. RN confirmed and did not give.
== END 2023-04-23 00:32 | disposition home or self-care (01) ==
PROVIDERS: Emergency Provider Emergency Medicine; PCP Nurse Practitioner Family
DX: R07.9 Chest pain, unspecified (principal); M54.9 Dorsalgia, unspecified; R91.8 Other nonspecific abnormal finding of lung field; I10 Essential (primary) hypertension; I25.10 Atherosclerotic heart disease of native coronary artery without angina pectoris
CPT/HCPCS: 36415; 71045; 71250; 80053; 83690; 83880; 84484; 85025; 87426; 96374; 99285; J1885

== ENCOUNTER 2023-09-13 07:15 | Inpatient (IN) | payer MEDICARE, SELFPAY ==
[2023-09-13] VITALS (23 sets, daily range): BP systolic 124–163; BP diastolic 52–115; PULSE 66–120; RESP 16–22; TEMP 36.5–36.6; O2SAT 90–100; BMI 27.4
--- NOTE | 2023-09-13 07:24 | ECG_ITS ---
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 Measurements Intervals [place] Rate: 131 P: 0 LA: 0 QRS: 42 QRSD: 91 T: 81 QT: 274 QTc: 405 Interpretive Statements ATRIAL FLUTTER/TACHYCARDIA WITH RAPID VENTRICULAR RESPONSE NONSPECIFIC ST & T-WAVE ABNORMALITY Compared to ECG 09/01/2022 10:16:19 T-wave abnormality now present Sinus rhythm no longer present Electronically Signed On 09-13-2023 9:53:48 FRUIT PICKER by Brayan Cotto M.D. [email or web address]
--- NOTE | 2023-09-13 07:26 | ED_ITS ---
HPI - Chest Pain General: Chief Complaint: ER Hold Stated Complaint: bp, Vancea, cp Time Seen by Provider: 09/13/23 07:24 Source: patient Mode of arrival: ambulatory History of Present Illness: 88-year-old female presents emergency room with complaint of chest pain rapid heart therapy began yesterday while she was washing dishes she has intermittent waxing and waning chest pain since then with associated nausea. She has also noticed increased swelling in her lower extremities. She tells me she has a history of atrial fibrillation she also has a history of pulmonary embolism she has been out of her Xarelto for about the last week. Is a known history of diastolic congestive heart failure as well. She is not noticing that aggravates or relieves her chest pain. She did note from December of this year she had some intermittent chest discomfort at that time 2. She does have an IVC filter was placed several years ago. Lexiscan sestamibi stress test July 2022 was negative for any signs of acute ischemia. MD complaint: chest pain Onset (ago): day(s) (2) Timing of current episode: constant Prior episodes: Yes Onset: during rest Pain location: epigastric Severity: moderate Quality: sharp Relieving factors: nothing Exacerbating factors: nothing Associated symptoms: Reports palpitations and vomiting; Deny abdominal pain, diaphoresis, dyspnea, fever(s), leg edema, nausea, sense of impending doom or syncope Treatment prior to arrival: none Review of Systems Const: Denies: fever(s), chills or diaphoresis Card: Reports: chest pain, palpitations, irregular heart rhythm and edema; Denies: syncope Resp: Denies: dyspnea GI: Reports: vomiting; Denies: abdominal pain or nausea : Denies: dysuria, urinary frequency or urinary urgency Musc: Denies: neck pain or back pain Skin/Breast: Denies: rash PFSH ED PFSH: Medical History (Updated 09/13/23 @ 14:24 by Todd Garduno DO) Acute blood loss anemia (ABLA) Acute encephalopathy Acute on chronic respiratory failure with hypoxia and hypercapnia Anemia Atrial fibrillation Bradycardia Chest pain Chest pain Chronic back pain Chronic respiratory failure with hypoxia and hypercapnia Congestive heart failure COPD (chronic obstructive pulmonary disease) Uses trilogy at night with 2 L. Typically not on oxygen during day. Coronary artery disease Depression Depression with anxiety DVT (deep venous thrombosis) Dysphagia Dysphagia Dyspnea or other respiratory complaints Elevated troponin Fusion of spine Hallucinations, unspecified History of cancer of vulva History of pulmonary embolism Hx of blood clots Hyperlipidemia Hypertension Lumbar radiculopathy Medication side effects present Melanotic stools Obstructive sleep apnea Post-op pain Pulmonary embolism Pulmonary hypertension Restless leg syndrome Surgical History H/O: hysterectomy History of back surgery History of coronary artery stent placement History of hip replacement History of knee replacement History of tonsillectomy Presence of vena cava filter Family History Other Cancer Chronic back pain Social History Smoking and tobacco/nicotine status: former use of tobacco/nicotine Alcohol intake: current Alcohol intake frequency: few times a month Caregiver/support person: Yes Lives independently: Yes Household members: spouse Housing: House Physical Exam Const: GENERAL APPEARANCE: cooperative ORIENTATION/CONSCIOUSNESS: Yes awake, Yes oriented to person, Yes oriented to place and Yes oriented to time HENMT: COMMON NORMALS: normocephalic, atraumatic and hearing grossly normal bi laterally HEAD & SCALP: normocephalic and atraumatic Resp: COMMON NORMALS: normal respiratory effort, No retractions, No use of accessory muscles and clear to auscultation bilaterally AUSCULTATION: clear to auscultation bilaterally Cardio: COMMON NORMALS: No murmurs present (Cardio) RATE: tachycardic RHYTHM: abnormal rhythm irregularly irregular GI: COMMON NORMALS: Soft to palpation and No hepatosplenomegaly present AUSCULTATION: Yes normoactive bowel sounds PALPATION: Yes Soft to palpation, No Tenderness to palpation present (GI), No Guarding due to palpation present ( GI) and Yes No hepatosplenomegaly present Extremity: COMMON NORMALS: normal to inspection, capillary refill normal and no calf tenderness GENERAL: Yes edema Neuro: SENSORIUM/ORIENTATION: Yes oriented to person, Yes oriented to place and Yes oriented to time Skin: COMMON NORMALS: no rashes or lesions noted GENERAL SKIN EXAM: no rashes or lesions noted Course Vital Signs: Vital signs: Vital Signs Temperature 97.7 F 09/13/23 07:19 Pulse Rate 98 09/13/23 13:15 Respiratory Rate 22 H 09/13/23 13:15 Blood Pressure 158/84 09/13/23 13:15 Pulse Oximetry 95 09/13/23 13:15 Oxygen Delivery Me thod Room Air 09/13/23 13:15 MDM - Chest Pain Medical Decision Making Patient in A-fib with RVR improved with Cardizem. She previously was on metoprolol but it was stopped because she had come in bradycardic last summer and was actually given atropine. At that time though the bradycardia was on actually documented Dr. Moreland in a consultation note suggest she go home off of the metoprolol she done very well since then but now is in A-fib with RVR. 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 She currently on a Cardizem drip we will admit her to the hospitalist orders written for continue to drip she is given a single dose of p.o. Cardizem 30 mg. Also given Lovenox. She did have an angiogram done in 2006 or I was not able to pull up the report in our electronic medical record system. Medical Records I reviewed the patient's medical records. Lab Data I reviewed the patient's lab results. 09/13/23 07:37 09/13/23 07:37 Radiology Impressions Chest X-Ray 09/13/23 08:10 IMPRESSION: 1. New atelectasis and/or pneumonitis left lung base with new small left pleural effusion. 2. New pulmonary vascular congestion. Laboratory Results WBC 6.60 10^3/uL (3.29-11.43) 09/13/23 07:37 RBC 4.27 10^6/uL (3.85-5.65) 09/13/23 07:37 Hgb 13.20 g/dL (11.27-16.99) 09/13/23 07:37 Hct 43.5 % (36-47) 09/13/23 07:37 MCV 101.9 fl (85-98) H 09/13/23 07:37 MCH 30.9 pg (27-33) 09/13/23 07:37 MCHC 30.3 g/dL (30-55) 09/13/23 07:37 RDW 13.5 % (12.1-15.1) 09/13/23 07:37 Plt Count 172 10^3/cmm (157-399) 09/13/23 07:37 MPV 9.8 fL (7.4-10.4) 09/13/23 07:37 Neut % (Auto) 70.9 % 09/13/23 07:37 Lymph % (Auto) 19.1 % 09/13/23 07:37 Glascock % (Auto) 8.9 % 09/13/23 07:37 Eos % (Auto) 0.5 % 09/13/23 07:37 Baso % (Auto) 0.3 % 09/13/23 07:37 Neut # (Auto) 4.68 10^3/uL (1.8-7.7) 09/13/23 07:37 Lymph # (Auto) 1.3 10^3/uL (0.8-4.8) 09/13/23 07:37 Glascock # (Auto) 0.6 10^3/uL (0.2-0.9) 09/13/23 07:37 Eos # (Auto) 0.0 10^3/uL (0.0-0.8) 09/13/23 07:37 Baso # (Auto) 0.0 10^3/uL (0.0-0.1) 09/13/23 07:37 Nucleated RBC % (auto) 0 % 09/13/23 07:37 Nucleated RBCs # 0.0 /100WBC 09/13/23 07:37 Sodium 144 mmol/L (136-145) 09/13/23 07:37 Potassium 4.7 mmol/L (3.5-5.1) 09/13/23 07:37 Chloride 105 mmol/L (98-107) 09/13/23 07:37 Carbon Dioxide 28 mmol/L (22-29) 09/13/23 07:37 Anion Gap 15.7 (5-19) 09/13/23 07:37 BUN 22 mg/dL (8-23) 09/13/23 07:37 Creatinine 0.8 mg/dL (0.5-0.9) 09/13/23 07:37 GFR Calculation Not Reportable 09/13/23 07:37 Glucose 125 mg/dL (65-115) H 09/13/23 07:37 Calculated Osmolality 303 mOsm/kg (285-295) H 09/13/23 07:37 Calcium 9.6 mg/dL (8.5-10.5) 09/13/23 07:37 Magnesium 1.8 mg/dL (1.7-2.3) 09/13/23 07:37 Total Bilirubin 0.7 mg/dL (0.15-1.2) 09/13/23 07:37 AST 52 U/L (0-32) H 09/13/23 07:37 ALT 50 U/L (0-33) H 09/13/23 07:37 Alkaline Phosphatase 241 U/L (35-105) H 09/13/23 07:37 Troponin T Baseline 47 ng/L (0-10) H 09/13/23 07:37 Troponin T 120 Minute 46.92 ng/L (0-10) H 09/13/23 09:46 Delta Troponin T -0.08 ABS# (0-10) L 09/13/23 09:46 Total Protein 5.9 g/dL (6.6-8.7) L 09/13/23 07:37 Albumin 4.1 g/dL (3.5-5.2) 09/13/23 07:37 Globulin 1.8 g/dL (1.3-4.6) 09/13/23 07:37 Lipase 19 U/L (13-60) 09/13/23 07:37 TSH 1.08 uIU/mL (0.27-4.20) 09/13/23 07:37 All radiology interpretation(s) finalized by discharge Discharge Plan Discharge Patient Disposition: Admitted As Inpatient Admit Provider: Cameron Garcia Clinical Impression: Atrial fibrillation, History of pulmonary embolism, Congestive heart failure Condition: Stable Coding Level of Care Code ED Offset Plate Preparation Supervisor for Garett Leija
[2023-09-13] MEDS: dilTIAZem 5 mg/mL SDV 5 mL 20 MG IVP (07:38)
[2023-09-13] MEDS: enoxaparin 80 mg/0.8 mL Syringe SUBCUT ×2 (07:38→22:16)
[2023-09-13 07:49] LABS: Basophils % 0.3 %; Eosinophils % 0.5 %; Hematocrit 43.5 % (36-47); Lymphocytes # 1.3 10^3/uL (0.8-4.8); Lymphocytes % 19.1 %; Mean Corpuscular HGB Conc 30.3 g/dL (30-55); Mean Corpuscular Hemoglobin 30.9 pg (27-33); Mean Corpuscular Volume 101.9 fl (85-98); Mean Platelet Volume 9.8 fL (7.4-10.4); Monocytes # 0.6 10^3/uL (0.2-0.9); Monocytes % 8.9 %; Neutrophils # 4.68 10^3/uL (1.8-7.7); Neutrophils % 70.9 %; Nucleated Red Blood Cells % 0 %; Platelet Count 172 10^3/cmm (157-399); Red Blood Count 4.27 10^6/uL (3.85-5.65); Red Cell Distribution Width 13.5 % (12.1-15.1)
--- NOTE | 2023-09-13 07:50 | PC.PHAR ---
PT TAKES XARELTO 20 MG. ACCORDING TO RX FILL DATE, PT WAS OUT OF MEDICATION 3 WEEKS AGO. SHE DOES NOT REMEMBER WHAT MEDICATIONS SHE TAKES. HER PHARMACY-[facility], DOES NOT OPEN UNTIL 9AM TODAY. WILL REACH OUT TO THEM AT THAT TIME.
[2023-09-13] MEDS: dilTIAZem 100 MG in sodium chloride 0.9% (add-van) 100 ML IV (07:54)
[2023-09-13] MEDS: FUROsemide 10 mg/mL SDV 4mL 40 MG IVP ×2 (07:59→17:58)
[2023-09-13 08:07] LABS: Alanine Aminotransferase 50 U/L (0-33); Albumin Level 4.1 g/dL (3.5-5.2); Alkaline Phosphatase 241 U/L (35-105); Anion Gap 15.7 (5-19); Aspartate Amino Transferase 52 U/L (0-32); Blood Urea Nitrogen 22 mg/dL (8-23); Calcium 9.6 mg/dL (8.5-10.5); Carbon Dioxide 28 mmol/L (22-29); Chloride 105 mmol/L (98-107); Globulin 1.8 g/dL (1.3-4.6); Glucose 125 mg/dL (65-115); Osmolality Calculated 303 mOsm/kg (285-295); Potassium 4.7 mmol/L (3.5-5.1); Sodium 144 mmol/L (136-145); Total Bilirubin 0.7 mg/dL (0.15-1.2); Total Protein 5.9 g/dL (6.6-8.7)
[2023-09-13 08:08] LABS: Troponin(5th) Baseline 47 ng/L (0-10)
--- NOTE | 2023-09-13 08:10 | XRR_ITS ---
PROCEDURE INFORMATION: Exam: XR Chest Exam date and time: 09/13/2023 8:15 AM Age: 88 years old Clinical indication: Cough and dyspnea; Additional info: Dyspnea/cough TECHNIQUE: Imaging protocol: Radiologic exam of the chest. Views: 1 view. COMPARISON: CT chest wo con [id number] 04/22/2023 10:38 PM FINDINGS: Lungs: New atelectasis and/or pneumonitis left lung base. New pulmonary vascular congestion. Pleural spaces: New small left pleural effusion. No right pleural effusion or pneumothorax. Heart/Mediastinum: Unremarkable. No cardiomegaly. Bones/joints: Unchanged moderate scoliosis and spondylosis. Unchanged fixation hardware attached to the visualized lower thoracic and upper lumbar spine. XR/XR chest 1V portable [id number] IMPRESSION: 1. New atelectasis and/or pneumonitis left lung base with new small left pleural effusion. 2. New pulmonary vascular congestion.
--- NOTE | 2023-09-13 08:10 | CT_ITS ---
WS: [id number] CT ABDOMEN AND PELVIS NONCONTRAST HISTORY: Abdominal pain TECHNIQUE: Imaging performed through the abdomen and pelvis. Coronal and sagittal reformats are submi tted. All CT scans at [facility] use at least one of these dose optimization techniques: auto mated exposure control; mA and/or kV adjustment per patient size (includes targeted exams where dose is matched to clinical indication); or iterative reconstruction. DLP: 804.83 mGy.cm COMPARISON: 08/01/2022 Lower thorax: Small layering bilateral pleural effusions. Marked cardiomegaly. Liver: Beam hardening artifact through the abdominal structures from orthopedic hardware in the spine . No liver abnormality. Gallbladder: Increased fluid surrounding the gallbladder with edema and pericholecystic fluid. No sto jim are identified. Pancreas: Atrophied. No duct dilatation. Spleen: Normal with granulomata. Adrenal glands: LEFT adrenal gland is poorly visualized. Hyperplasia was noted on the prior CT from 2 022. Negative RIGHT adrenal gland. Right kidney: No obstruction Left kidney: Low-attenuation lesion from the mid kidney is probably a cyst. No change. Aorta: Moderate to severe atherosclerosis abdominal aorta. No aneurysm. Atherosclerosis continues int o the common iliac arteries. Small central mesenteric lymph nodes. No adenopathy. IVC filter is present. Mild diffuse soft tissue edema and anasarca. Mesenteric edema. GI tract: No obstruction. Mild diffuse diverticulosis. Mild fluid distention of the small bowel but n o obstruction at this time. Abdominal wall: Small umbilical hernia contains fat only. Pelvis: There is a small amount of free fluid in the pelvis. Osseous structures: Thoracolumbar scoliosis. Extensive posterior fusion hardware throughout the entir e lumbar spine. Hardware extends into the thoracic spine and the pelvis. Prior RIGHT hip arthroplasty . IMPRESSION: 1. Mild soft tissue edema and anasarca with a small amount of free fluid in the pelvis. 2. Abnormal gallbladder. There is fluid surrounding the gallbladder. No stones are identified by CT. RIGHT upper quadrant ultrasound may provide additional information. Correlate for acute cholecystiti s. 3. Mild fluid distention of the small bowel loops but no obstruction. 4. Mild diffuse del cid diverticulosis without acute diverticulitis. 5. No free air. 6. No renal obstruction. 7. Small bilateral pleural effusions and marked cardiomegaly.
--- NOTE | 2023-09-13 09:09 | US_ITS ---
WS: [id number] RIGHT UPPER QUADRANT ULTRASOUND HISTORY: RUQ pain COMPARISON: CT abdomen 09/13/2023 Liver: 15.0 cm in length. Normal size liver. Mild coarsened echotexture. No mass. No bile duct dilata tion. Portal Vein: Normal hepatopetal flow with monophasic waveform. Gallbladder: Normally distended. There is mild diffuse wall thickening and a small amount of perichol ecystic fluid. No stones are identified. Gallbladder wall measures just over 3 mm. CBD: 0.5 cm Pancreas: Atrophied. Right kidney: 9.1 cm in length. Normal size and echogenicity. No hydronephrosis or mass. Aorta and IVC: Unremarkable abdominal aorta and IVC. No ascites. IMPRESSION: 1. Abnormal gallbladder. There is mild diffuse gallbladder wall thickening and pericholecystic fluid. Small amount of adjacent edema. No stones are identified. The gallbladder wall thickening and edema may be related to ascites and hepatocellular disease. Mild acalculous cholecystitis may appear simila r. 2. No bile duct dilatation.
--- NOTE | 2023-09-13 09:24 | ECG_ITS ---
[facility] Test Date: 2023-09-13 Pat Name: Maria Teresa Woodruff Department: Room: Gender: Female [employer]: : 1935 Requested By: Todd Maher Order Number: [id number] Mely MD: Brayan Cotto M.D. Measurements Intervals [place] Rate: 73 P: 0 OR: 0 QRS: 42 QRSD: 96 T: 91 QT: 377 QTc: 416 Interpretive Statements ATRIAL FIBRILLATION NONSPECIFIC T-WAVE ABNORMALITY Compared to ECG 09/13/2023 07:18:35 No significant changes Electronically Signed On 09-13-2023 9:55:14 CLASSIFIED AD CLERK by Brayan Cotto M.D. [id number]
[2023-09-13] MEDS: dilTIAZem 30 mg Tablet PO (09:26)
--- NOTE | 2023-09-13 09:57 | PM.HP ---
Providers/Chief Complaint Admitting Physician: Cameron Garcia MD Primary Care Provider: June Merchant Chief Complaint: bp, Nausia, cp History of Present Illness Maria Teresa Woodruff is a 88 year old female presenting to the emergency department with complaints of palpitations, shortness of breath, and chest discomfort for approximately 1 day. She has not had any fevers or cough. She reports she did have some nausea yesterday and vomited at least 1 time. She is not nauseated currently. She does not have any chest discomfort currently. Her most recent hospitalization in August 2022 there was concern of bradycardia and she was taken off metoprolol 25 mg twice daily. She denies any blood in her stool, black or tarry stools. No hematemesis. In the emergency department she got 40 mg of Lasix IV, Lovenox 80 mg, a bolus of diltiazem, a drip of diltiazem in the initiation of p.o. diltiazem. Review of Systems General: Reports: 10 or more systems reviewed and unremarkable except in HPI and below Card: Reports: chest pain Resp: Reports: dyspnea and wheezing GI: Reports: abdominal pain, nausea and vomiting; Denies: hematemesis, hematochezia or melena Medications/Allergies Home Medications Medication Instructions Recorded Confirmed Last Taken Type ropinirole 4 mg tablet 4 mg PO BEDTIME 01/14/21 09/13/23 07/31/22 History venlafaxine 150 mg tablet,extended 150 mg PO DAILY 01/14/21 09/13/23 08/01/22 History release 24 hr ergocalciferol (vitamin D2) 1,250 1,250 mcg PO Q7D 05/21/21 09/13/23 09/28/21 History mcg (50,000 unit) capsule clobetasol 0.05 % topical gel 1 applic topical DAILY 09/09/21 09/13/23 09/27/21 History atorvastatin 40 mg tablet 40 mg PO BEDTIME #90 tabs 04/13/22 09/13/23 07/31/22 Rx nitroglycerin 0.4 mg sublingual 0.4 mg sublingual Q5M PRN chest 04/13/22 09/13/23 Unknown Rx tablet pain #25 tabs ascorbic acid (vitamin C) 500 mg 1,000 mg PO QAM 08/01/22 09/13/2309/11/23 History tablet (Vitamin C) hydrocodone 5 mg-acetaminophen 325 1 - 2 tab PO Q4H PRN pain 08/31/22 09/13/23 09/13/23 History mg tablet vit A-vit [id number] lozenges 1 gilbert PO DAILY 08/31/22 09/13/23 Unknown History (Zinc (with Vitamins A and C) Lozenges) magnesium oxide 250 mg PO DAILY 01/05/23 09/13/23 Unknown History rivaroxaban 20 mg tablet (Xarelto) 20 mg PO DAILY #90 tabs 02/22/23 09/13/23 Unknown Rx cyanocobalamin (vitamin B-12) 1,000 mcg IM Q30D 09/13/23 09/13/23 Unknown History 1,000 mcg/mL injection solution gabapentin 100 mg capsule 200 mg PO BEDTIME 09/13/23 09/13/23 09/13/23 History Allergies Allergy/AdvReac Type Severity Reaction Status Date / Time amoxicillin Allergy rash Verified 04/22/23 21:17 epinephrine Allergy Unknown Verified 04/22/23 21:17 hydrochlorothiazide Allergy unknown Verified 04/22/23 21:17 Iodinated Contrast Media Allergy Unknown Verified 04/22/23 21:17 morphine Allergy nausea, Verified 04/22/23 21:17 hyper Penicillins Allergy rash Verified 04/22/23 21:17 Tetanus Vaccines and Toxoid Allergy unk Verified 04/22/23 21:17 PFSH Acute PFSH: Medical History (Updated 09/13/23 @ 11:28 by Cameron Garcia MD) Acute blood loss anemia (ABLA) Acute encephalopathy Acute on chronic respiratory failure with hypoxia and hypercapnia Anemia Atrial fibrillation Bradycardia Chest pain Chest pain Chronic back pain Chronic respiratory failure with hypoxia and hypercapnia Congestive heart failure COPD (chronic obstructive pulmonary disease) Uses trilogy at night with 2 L. Typically not on oxygen during day. Coronary artery disease Depression Depression with anxiety DVT (deep venous thrombosis) Dysphagia Dysphagia Dyspnea or other respiratory complaints Elevated troponin Fusion of spine Hallucinations, unspecified History of cancer of vulva History of pulmonary embolism Hx of blood clots Hyperlipidemia Hypertension Lumbar radiculopathy Medication side effects present Melanotic stools Obstructive sleep apnea Post-op pain Pulmonary embolism Pulmonary hypertension Restless leg syndrome Surgical History H/O: hysterectomy History of back surgery History of coronary artery stent placement History of hip replacement History of knee replacement History of tonsillectomy Presence of vena cava filter Family History Other Cancer Chronic back pain Social History Smoking and tobacco/nicotine status: former use of tobacco/nicotine Alcohol intake: current Alcohol intake frequency: few times a month Caregiver/support person: Yes Lives independently: Yes Household members: spouse Housing: House Vitals/I&O/Wt Last Vital Signs Temp 97.7 F 09/13/23 07:19 Pulse 66 09/13/23 08:41 Resp 21 H 09/13/23 08:41 BP 124/52 09/13/23 09:15 Pulse Ox 100 09/13/23 09:15 O2 Del Method Room Air 09/13/23 09:15 Weight last 48 hrs Weight 74.843 kg Physical Exam Narrative: General exam demonstrates a white female, with mild to moderate tachypnea and accessory muscle use. Mild distress. HEENT: Atraumatic normocephalic. Oropharynx is clear Neck is supple no lymphadenopathy thyromegaly Cardiovascular irregular, irregular with accelerated rate. No murmur Lungs a few bilateral wheezes. Few rhonchi bilaterally. Abdomen is soft positive bowel sounds. No specific tenderness. No obvious organomegaly but exam difficult exam was deferred Extremities 2+ edema bilaterally. No cyanosis or clubbing Skin no rash Neuro no obvious focal deficits Data 09/13/23 07:37 09/13/23 07:37 Other Labs: Calcium 9.6, albumin 4.1. LFTs demonstrate elevation with AST of 52, ALT 50, alk phos of 241. Total bili 0.7 Troponin 47 with repeat of 46 Gallbladder ultrasound diffuse wall thickening, no stones, no duct dilation Chest x-ray reviewed by me demonstrates some pulmonary edema, left-sided infiltrate cannot rule out infusion CT abdomen and pelvis demonstrates some soft tissue edema and anasarca, fluid around the gallbladder, mild distention of small bowel, small bilateral pleural effusions EKG which I reviewed demonstrates atrial fibrillation/flutter with rapid ventricular rate. Normal axis. Nonspecific ST-T wave changes A&P Assessment and plan (1) Atrial fibrillation: Patient presents with atrial fibrillation/flutter with rapid ventricular rate Cardizem drip has been initiated, and Cardizem p.o. started. Wean diltiazem off as tolerated. Continue diltiazem 30 mg every 6 hours, monitoring for bradycardia Echocardiogram Telemetry Check TSH and magnesium level Note that she is already on Xarelto. (2) Congestive heart failure: Patient with evidence of acute heart failure likely diastolic Lasix 40 mg IV given in the emergency department, continue 40 IV every 12 hours Close follow-up of electrolytes and renal function daily along with CBC Echocardiogram as above Qualifiers: Heart failure chronicity: acute on chronic Heart failure type: unspecified Qualified Code(s): I50.9 - Heart failure, unspecified (3) Transaminitis: I think this likely represents congestion of the liver from heart failure Repeat LFTs tomorrow Note gallbladder studies. Monitor for any recurrence (4) History of pulmonary embolism: Continue Lovenox. Patient recently stopped her Xarelto. Plan Patient with some abdominal discomfort. Check lipase. Doubt significant infection. Check urinalysis. Repeat LFTs tomorrow. See CT scan result. Protonix p.o. Multiple other medical problems as outlined in past medical history Allow natural Xarelto will suffice for DVT prophylaxis Attestations Medical Necessity Statement*: Will require greater than 2 midnight stay for evaluation and treatment of acute congestive heart failure Diagnoses Atrial fibrillation I48.91 Congestive heart failure I50.9 Heart failure chronicity: acute on chronic Heart failure type: unspecified Transaminitis R74.01 History of pulmonary embolism Z86.711 Time Spent (min) 59
[2023-09-13 10:23] LABS: Troponin 5 2HR 46.92 ng/L (0-10)
[2023-09-13 10:27] LABS: Troponin 5 2HR Delta -0.08 ABS# (0-10)
--- NOTE | 2023-09-13 11:21 | USCV_ITS ---
Maria Teresa Woodruff Age: 88 Gender: F : 1935 Exam Date: 09/13/2023 18:19 Ordering Phys: Cameron Garcia MD Technologist: Jam Del Rio [place] [facility] [place]: CHF, BLE edema, s/p cardiac stenting 2019 BP: 133 / 81 HR: 72 Rhythm: Atrial fibrillation with erratic, irregular rhythm Technical Quality: Adequate MEASUREMENTS (Male / Female) Normal Values 2D ECHO LV Diastolic Diameter PLAX 3.6 cm 4.2 - 5.9 / 3.9 - 5.3 cm LV Systolic Diameter PLAX 2.6 cm IVS Diastolic Thickness 1.6 cm 0.6 - 1.0 / 0.6 - 0.9 cm IVS Systolic Thickness 2.0 cm LVPW Diastolic Thickness 1.2 cm 0.6 - 1.0 / 0.6 - 0.9 cm LVPW Systolic Thickness 1.7 cm LVOT Diameter 1.8 cm LV Ejection Fraction 2D Teich 57.1 % LV Ejection Fraction MOD 2C 54.2 % LV Ejection Fraction 2C AL 53.9 % LA Diameter 4.6 cm LA Width 4.3 cm LA Height 6.3 cm RA Width 5.7 cm RA Height 7.4 cm Aorta at Sinotubular Diameter 2.3 cm IVC Diameter 2.6 cm M-MODE Aortic Annulus Diameter 2.4 cm LA Ao Ratio MM 1.8 MV E Point Septal Separation 0.5 cm DOPPLER AV Peak Velocity 109.0 cm/s LVOT Peak Velocity 64.0 cm/s AV Area Cont Eq vti 1.8 cm squared AV Area Cont Eq pk 1.5 cm squared MV Peak Velocity 100.0 cm/s MV Area PHT 2.6 cm squared MV E' Velocity 65.0 cm/s Mitral E to MV E' Ratio 10.9 Mitral E to LV E' Lateral Ratio 9.8 Mitral E to LV E' Septal Ratio 12.6 TR Peak Velocity 299.5 cm/s TR Peak Gradient 35.9 mmHg TV Peak E Velocity 65.0 cm/s Right Atrial Pressure 10.0 mmHg Pulmonary Artery Systolic Pressu 45.9 mmHg PV Peak Velocity 89.0 cm/s FINDINGS Left Ventricle Left ventricle is normal in size. LV systolic function is normal with EF of 55 to 60%. No regional wall motion abnormalities are seen. Diastolic function is indeterminate because of atrial fibrillation Right Ventricle Normal in size and function Right Atrium Dilated Left Atrium Dilated Mitral Valve Moderate mitral annular calcification. Mild mitral regurgitation. Aortic Valve Aortic valve is thickened. No significant stenosis or regurgitation. Tricuspid Valve Moderate to severe tricuspid regurgitation. RVSP is 55-60 mmHg. This is consistent with moderate pulmonary hypertension Pulmonic Valve Moderate pulmonic regurgitation Pericardium Normal Aorta Normal in size IVC Dilated CONCLUSIONS LV systolic function is normal with EF 55 to 60%. Diastolic function is indeterminate because of atrial fibrillation. Biatrial dilation Mild mitral regurgitation Moderate to severe tricuspid regurgitation. Moderate pulmonary hypertension Moderate pulmonic regurgitation IVC is dilated Compared to prior echocardiogram from 09/01/2022, patient has moderate to severe tricuspid regurgitation, moderate pulmonary hypertension and moderate pulmonic regurgitation. Brayan Cotto MD (Electronically Signed) Final Date: 14 September 2023 11:11 S
[2023-09-13 11:56] LABS: Lipase 19 U/L (13-60); Magnesium 1.8 mg/dL (1.7-2.3); Thyroid Stimulating Hormone 1.08 uIU/mL (0.27-4.20)
--- NOTE | 2023-09-13 13:31 | ECG_ITS ---
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 Measurements Intervals [place] Rate: 94 P: 0 WI: 0 QRS: 17 QRSD: 87 T: 117 QT: 331 QTc: 416 Interpretive Statements ATRIAL FIBRILLATION ST DEVIATION AND MODERATE T-WAVE ABNORMALITY, CONSIDER LATERAL ISCHEMIA [-0.1+ mV T-WAVE IN I/aVL/V5/V6] Compared to ECG 09/13/2023 09:18:23 Possible ischemia now present T-wave abnormality still present Electronically Signed On 09-13-2023 13:43:21 PARIMUTUEL TICKET CHECKER by Shivani Brooks M.D. [email or web address].[facility]mon[facility] hospitalKimblest. [facility] [facility].[employer]/store/OM/[id number]
[2023-09-13 14:03] LABS: Add Urine Culture? No; Bacteria Urine TRACE /hpf; Bilirubin Urine Neg (Negative); Blood Urine Neg (Negative); Glucose Urine UA Norm (Normal); Ketones Urine Negative (Negative); Leukocyte Esterase Urine Trace (Negative); Nitrate Urine Negative (Negative); Protein Urine Neg (Negative); Squamous Epithelial Cell Urine RARE /hpf (0-5); Urine Appearance Clear (CLEAR); Urine Color Straw (Yellow); Urobilinogen Urine Norm (Negative); WBC Urine 0-4 /hpf (0-5); pH Urine 5 (5-7)
[2023-09-13 14:31] LABS: Troponin 5 6HR 46.88 ng/L (0-10)
[2023-09-13 14:32] LABS: Troponin 5 6HR Delta -0.12 ng/L (0-12)
[2023-09-13] MEDS: dilTIAZem 60 mg Tablet 30 MG PO ×2 (16:15→22:16)
--- NOTE | 2023-09-13 17:25 | ECG_ITS ---
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 Measurements Intervals [place] Rate: 76 P: 0 ND: 0 QRS: 43 QRSD: 102 T: 77 QT: 415 QTc: 468 Interpretive Statements ATRIAL FIBRILLATION MODERATE ST DEPRESSION [0.05+ mV ST DEPRESSION] Compared to ECG 09/13/2023 13:31:52 ST (T wave) deviation now present T-wave abnormality no longer present Possible ischemia no longer present Electronically Signed On 09-13-2023 19:05:26 MICROBIOLOGY LAB ANALYST by Shivani Brooks M.D. [email or web address].[employer]/store/[id number]
[2023-09-13] MEDS: nitroglycerin 0.4 mg sublingual Tablet SUBLINGUAL ×2 (17:39→17:45)
--- NOTE | 2023-09-13 17:39 | PC.NURSE ---
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 Nurse did an EKG and called Dr. Garcia who prescribed nitro sublingual and morphine. Patient is allergic to morphiine and refused med. Nitro sublingual given.
[2023-09-13] MEDS: pantoprazole DR 40 mg Tablet PO (17:58)
[2023-09-13] MEDS: atorvastatin 40 mg Tablet PO (20:09)
[2023-09-13] MEDS: gabapentin 100 mg Capsule 200 MG PO (20:09)
[2023-09-13] MEDS: HYDROcodone-acetaminophen 5-325 mg Tablet 1 TAB PO (20:10)
--- NOTE | 2023-09-13 21:16 | PC.NURSE ---
This Rn agrees with all documentation made by SN this evening. Will continue to monitor.
[2023-09-14] VITALS (11 sets, daily range): BP systolic 108–128; BP diastolic 54–77; PULSE 67–131; RESP 16–23; TEMP 36.8–37.2; O2SAT 90–98
[2023-09-14] MEDS: dilTIAZem 60 mg Tablet 30 MG PO (04:16)
[2023-09-14 05:15] LABS: Basophils % 0.4 %; Eosinophils # 0.1 10^3/uL (0.0-0.8); Eosinophils % 2.1 %; Lymphocytes # 1.3 10^3/uL (0.8-4.8); Lymphocytes % 27.7 %; Mean Corpuscular HGB Conc 30.2 g/dL (30-55); Mean Corpuscular Hemoglobin 31.2 pg (27-33); Mean Corpuscular Volume 103.3 fl (85-98); Monocytes # 0.5 10^3/uL (0.2-0.9); Monocytes % 10.9 %; Neutrophils # 2.75 10^3/uL (1.8-7.7); Neutrophils % 58.7 %; Nucleated Red Blood Cells % 0 %; Platelet Count 153 10^3/cmm (157-399); Red Blood Count 3.97 10^6/uL (3.85-5.65); Red Cell Distribution Width 13.3 % (12.1-15.1); White Blood Count 4.69 10^3/uL (3.29-11.43)
[2023-09-14 05:43] LABS: Alanine Aminotransferase 38 U/L (0-33); Albumin Level 3.6 g/dL (3.5-5.2); Alkaline Phosphatase 193 U/L (35-105); Blood Urea Nitrogen 20 mg/dL (8-23); Calcium 9.1 mg/dL (8.5-10.5); Carbon Dioxide 32 mmol/L (22-29); Chloride 100 mmol/L (98-107); Globulin 1.8 g/dL (1.3-4.6); Glucose 107 mg/dL (65-115); Magnesium 1.7 mg/dL (1.7-2.3); Osmolality Calculated 297 mOsm/kg (285-295); Sodium 142 mmol/L (136-145); Total Bilirubin 0.6 mg/dL (0.15-1.2); Total Protein 5.4 g/dL (6.6-8.7)
[2023-09-14 05:46] LABS: Anion Gap 14.3 (5-19); Aspartate Amino Transferase 38 U/L (0-32); Potassium 4.3 mmol/L (3.5-5.1)
[2023-09-14] MEDS: FUROsemide 10 mg/mL SDV 4mL 40 MG IVP ×2 (06:20→17:32)
[2023-09-14] MEDS: acetaminophen 325 mg Tablet 650 MG PO (06:22)
[2023-09-14] MEDS: venlafaxine ER (24HR) 150 mg Capsule PO (08:04)
[2023-09-14] MEDS: pantoprazole DR 40 mg Tablet PO ×2 (08:04→17:32)
--- NOTE | 2023-09-14 08:44 | PM.PN ---
Subjective Subjective: Maria Teresa reports she is breathing little bit easier this morning. She was put on some oxygen. She is believes she is less swollen. She did have chest pain yesterday but it is now gone. She reports she has had quite a bit of stress and anxiety lately and believes that is playing into her chest discomfort. She has had past history of recurrent chest discomfort followed by cardiology. She has no chest discomfort currently. Medications: Reviewed: Yes Vitals/I&O/Wt Last Vital Signs Temp 98.5 F 09/14/23 04:30 Pulse 107 H 09/14/23 07:33 Resp 18 09/14/23 07:33 BP 108/54 09/14/23 07:33 Pulse Ox 96 09/14/23 07:33 O2 Del Method Nasal Cannula 09/14/23 07:33 09/13/23 09/14/23 09/14/23 22:59 06:59 14:59 Intake Total 240 / 240 100 / 340 Balance 240 / 240 100 / 340 Weight last 48 hrs Weight 77.564 kg Weight 74.843 kg Physical Exam Narrative: General exam no distress, denies discomfort Neck is supple no lymphadenopathy thyromegaly Cardiovascular irregular, irregular with accelerated rate. No murmur Lungs less wheezing. No crackles Abdomen is soft positive bowel sounds. No specific tenderness. Extremities 1+ edema bilaterally. No cyanosis or clubbing Data 09/14/23 04:58 09/14/23 04:58 A&P Assessment and plan (1) Atrial fibrillation: Patient presents with atrial fibrillation/flutter with rapid ventricular rate Cardizem drip has been initiated, and Cardizem p.o. started. Rate is controlled but she is still in atrial fibrillation Changed short acting Cardizem to Cardizem CD 120 mg daily Echocardiogram result pending Continue telemetry TSH and magnesium level were normal Note that she is already on Xarelto. (2) Congestive heart failure: Patient with evidence of acute heart failure likely diastolic Continue IV Lasix. She needs further diuresis. Close follow-up of electrolytes and renal function daily along with CBC Await echocardiogram (3) Transaminitis: I think this likely represents congestion of the liver from heart failure Liver function tests improving Note gallbladder studies. Monitor for any recurrence (4) History of pulmonary embolism: Continue Lovenox. Patient recently stopped her Xarelto. Plan Patient with some abdominal discomfort. Lipase normal, urinalysis not significant. Repeat LFTs tomorrow. See CT scan result. Protonix p.o. Multiple other medical problems as outlined in past medical history Allow natural Xarelto will suffice for DVT prophylaxis Probable discharge tomorrow Attestations Medical Necessity Statement*: Needs continued hospitalization for further diuresis secondary to acute diastolic heart failure Diagnoses Atrial fibrillation I48.91 Congestive heart failure I50.9 Transaminitis R74.01 History of pulmonary embolism Z86.711 Time Spent (min) 21
--- NOTE | 2023-09-14 10:22 | PC.CHAP ---
Pastoral Care Encounter/Spiritual Assessment Type of Contact [] Declined manager studio visit [] Patient/Family/Request visit [] Outpatient visit [] Follow-up visit [] Physician referral [] Code/Alert [x] Routine visit [] Staff referral [] Actively dying [] Patient sleeping [] Family support [] [] Out of room [] Palliative care [] [] Receiving care in room [] Pre-surgical visit [] Trauma [] Long length of stay [] ICU visit [] Other: Relational/Emotional Strength [x] Patient feels connected with others/family/visitors/staff [] Distress [] Loneliness/isolation [] Abandonment Spirituality of Patient [x] Person of Sarah [x] Attends Taoist of their Sarah [x] Believes in Prayer [] Reads Bible or Mormonism materials [] There are Spiritual issues to be addressed Caster Operator Interventions [x Prayer [x] Active listening [] Non-anxious presence [x] Spiritual/emotional support [] Crisis/trauma care [] Spiritual counseling [] Bereavement support [] Provided bereavement packet [] Provided Bible/devotional materials [] Provided toy/stuffed animal, coloring book to patient or family member [] Provided Communion [] Anointing/[place] [] Salvation [x] Completed spiritual assessment [] Other: Impact on Illness or Injury [] Angry [] Fearful [] Anxious [] Often cries [] Exhaustion [] Unable to work [] Unable to attend catholic [] Unable to walk/stand [] Unable to read [] Unable to drive [] Unable to eat/drink [] Unable to sleep [] Unable to be with family [] Patient intubated [] Other: Summary Time spent with patient 10 min
[2023-09-14] MEDS: HYDROcodone-acetaminophen 5-325 mg Tablet 1 TAB PO ×2 (11:00→20:35)
[2023-09-14] MEDS: dilTIAZem ER (24HR) 120 mg Capsule PO (11:00)
[2023-09-14] MEDS: enoxaparin 80 mg/0.8 mL Syringe SUBCUT ×2 (11:01→22:11)
[2023-09-14] MEDS: ondansetron 2 mg/ML SDV 2 mL 4 MG IVP (11:29)
[2023-09-14] MEDS: atorvastatin 40 mg Tablet PO (20:35)
[2023-09-14] MEDS: gabapentin 100 mg Capsule 200 MG PO (20:35)
--- NOTE | 2023-09-14 21:29 | PC.NURSE ---
Student RN performing care and medication administrations. This RN agrees with all documentation presently. Will continue to monitor.
[2023-09-14] MEDS: dilTIAZem 5 mg/mL SDV 5 mL 10 MG IVP (22:12)
[2023-09-14] MEDS: magnesium sulfate premix 2 GM/50 ML PIGGYBACK IV (22:13)
--- NOTE | 2023-09-14 22:18 | PC.NURSE ---
Patient's HR is steady 130s to 147. Patient denies any symptoms. Informed Dr Salas. placed orders. Medications given as ordered and documented by SN Martín. Will continue to monitor.
[2023-09-15] VITALS (10 sets, daily range): BP systolic 109–124; BP diastolic 75–88; PULSE 96–121; RESP 16–20; TEMP 36.4–37.3; O2SAT 85–98
[2023-09-15] MEDS: FUROsemide 10 mg/mL SDV 4mL 40 MG IVP (06:13)
[2023-09-15 06:21] LABS: Alanine Aminotransferase 31 U/L (0-33); Albumin Level 3.9 g/dL (3.5-5.2); Alkaline Phosphatase 199 U/L (35-105); Blood Urea Nitrogen 20 mg/dL (8-23); Calcium 8.8 mg/dL (8.5-10.5); Carbon Dioxide 32 mmol/L (22-29); Chloride 96 mmol/L (98-107); Globulin 1.7 g/dL (1.3-4.6); Glucose 90 mg/dL (65-115); Magnesium 2.1 mg/dL (1.7-2.3); Osmolality Calculated 290 mOsm/kg (285-295); Sodium 139 mmol/L (136-145); Total Bilirubin 0.6 mg/dL (0.15-1.2); Total Protein 5.6 g/dL (6.6-8.7)
[2023-09-15 06:26] LABS: Anion Gap 15.1 (5-19); Aspartate Amino Transferase 31 U/L (0-32); Potassium 4.1 mmol/L (3.5-5.1)
[2023-09-15] MEDS: venlafaxine ER (24HR) 150 mg Capsule PO (08:07)
[2023-09-15] MEDS: dilTIAZem ER (24HR) 180 mg Capsule PO (08:07)
[2023-09-15] MEDS: pantoprazole DR 40 mg Tablet PO (08:08)
--- NOTE | 2023-09-15 10:29 | PC.CHAP ---
Pastoral Care Encounter/Spiritual Assessment Type of Contact [] Declined label fuser tender visit [] Patient/Family/Request visit [] Outpatient visit [] Follow-up visit [] Physician referral [] Code/Alert [x] Routine visit [] Staff referral [] Actively dying [] Patient sleeping [] Family support [] [] Out of room [] Palliative care [] [x] Receiving care in room [] Pre-surgical visit [] Trauma [] Long length of stay [] ICU visit [] Other: Relational/Emotional Strength [] Patient feels connected with others/family/visitors/staff [] Distress [] Loneliness/isolation [] Abandonment Spirituality of Patient [] Person of Sarah [] Attends Holiness of their Sarah [] Believes in Prayer [] Reads Bible or Worship materials [] There are Spiritual issues to be addressed Nursing Education Specialist Interventions [x] Prayer [] Active listening [] Non-anxious presence [] Spiritual/emotional support [] Crisis/trauma care [] Spiritual counseling [] Bereavement support [] Provided bereavement packet [] Provided Bible/devotional materials [] Provided toy/stuffed animal, coloring book to patient or family member [] Provided Communion [] Anointing/[place] [] Salvation [] Completed spiritual assessment [] Other: Impact on Illness or Injury [] Angry [] Fearful [] Anxious [] Often cries [] Exhaustion [] Unable to work [] Unable to attend taoist [] Unable to walk/stand [] Unable to read [] Unable to drive [] Unable to eat/drink [] Unable to sleep [] Unable to be with family [] Patient intubated [] Other: Summary Time spent with patient 10 min
[2023-09-15] MEDS: enoxaparin 80 mg/0.8 mL Syringe SUBCUT (11:29)
--- NOTE | 2023-09-15 12:44 | P.DS_ITS ---
Discharge Providers Date of Admission: 09/13/23 10:11 Date of Discharge: September 15, 2023 Attending Provider at Admission: Cameron Garcia MD Attending Provider at Discharge: Cameron Garcia MD Primary Care Provider: June Merchant Diagnoses at Discharge Discharge Diagnosis (1) Atrial fibrillation: Status: Acute (2) Congestive heart failure: Status: Acute (3) Transaminitis: Status: Acute (4) History of pulmonary embolism: Status: Acute Reason for Visit Reason for Visit: bp, Nausia, cp Hospital Course Hospital Course Maria Teresa is an 88-year-old white female with known atrial fibrillation with problems with bradycardia in the past that presented with complaints of increased swelling, and found to be in atrial fibrillation with rapid ventricular rate. She was initiated on a Cardizem drip, that was changed to p.o. Cardizem and then titrated to an extended release form. Heart failure was treated with IV diuresis, with good result clinically to where she was compensated by September 15. At that time her heart rate was approximately 80 resting, atrial fibrillation. She had trace edema in her lower extremities. She is undergoing a home oxygen evaluation, and will discharge home with an event monitor secondary to her past history of bradycardia on metoprolol. She had no bradycardia during this hospital stay. She had no concerning delta on troponin. Gallbladder ultrasound demonstrated some edema, and her CT abdomen showed this as well but this was thought to be secondary to her heart failure. She had no significant persisting GI symptoms. She will be discharged with the event monitor, and follow-up with primary care provider 3 to 5 days with a BMP and cardiology in 2 weeks. See discharge medicine list for details. Physical Exam Narrative: General exam no distress Neck is supple Cardiovascular irregular irregular Lungs clear but with diminished breath sounds at the bases Abdomen is soft Extremities trace to 1+ edema lower extremities bilaterally. Discharge Data Studies Completed and Pending Completed Studies During Hospitalization Category Date Time Status CT abdomen pelvis wo con [id number] Stat Cat Scan 09/13/23 08:10 Completed XR chest 1V portable [id number] Stat Exams 09/13/23 08:10 Completed CV. echo complete* [id number] Routine Ultrasound 09/13/23 11:21 Completed US gall bladder [id number] Stat Ultrasound 09/13/23 09:09 Completed Radiology Impressions Chest X-Ray 09/13/23 08:10 IMPRESSION: 1. New atelectasis and/or pneumonitis left lung base with new small left pleural effusion. 2. New pulmonary vascular congestion. Laboratory Results WBC 4.69 10^3/uL (3.29-11.43) 09/14/23 04:58 RBC 3.97 10^6/uL (3.85-5.65) 09/14/23 04:58 Hgb 12.40 g/dL (11.27-16.99) 09/14/23 04:58 Hct 41.0 % (36-47) 09/14/23 04:58 MCV 103.3 fl (85-98) H 09/14/23 04:58 MCH 31.2 pg (27-33) 09/14/23 04:58 MCHC 30.2 g/dL (30-55) 09/14/23 04:58 RDW 13.3 % (12.1-15.1) 09/14/23 04:58 Plt Count 153 10^3/cmm (157-399) L 09/14/23 04:58 MPV 10.0 fL (7.4-10.4) 09/14/23 04:58 Neut % (Auto) 58.7 % 09/14/23 04:58 Lymph % (Auto) 27.7 % 09/14/23 04:58 [place] % (Auto) 10.9 % 09/14/23 04:58 Eos % (Auto) 2.1 % 09/14/23 04:58 Baso % (Auto) 0.4 % 09/14/23 04:58 Neut # (Auto) 2.75 10^3/uL (1.8-7.7) 09/14/23 04:58 Lymph # (Auto) 1.3 10^3/uL (0.8-4.8) 09/14/23 04:58 [place] # (Auto) 0.5 10^3/uL (0.2-0.9) 09/14/23 04:58 Eos # (Auto) 0.1 10^3/uL (0.0-0.8) 09/14/23 04:58 Baso # (Auto) 0.0 10^3/uL (0.0-0.1) 09/14/23 04:58 Nucleated RBC % (auto) 0 % 09/14/23 04:58 Nucleated RBCs # 0.0 /100WBC 09/14/23 04:58 Sodium 139 mmol/L (136-145) 09/15/23 05:30 Potassium 4.1 mmol/L (3.5-5.1) 09/15/23 05:30 Chloride 96 mmol/L (98-107) L 09/15/23 05:30 Carbon Dioxide 32 mmol/L (22-29) H 09/15/23 05:30 Anion Gap 15.1 (5-19) 09/15/23 05:30 BUN 20 mg/dL (8-23) 09/15/23 05:30 Creatinine 1.0 mg/dL (0.5-0.9) H 09/15/23 05:30 GFR Calculation Not Reportable 09/15/23 05:30 Glucose 90 mg/dL (65-115) 09/15/23 05:30 Calculated Osmolality 290 mOsm/kg (285-295) 09/15/23 05:30 Calcium 8.8 mg/dL (8.5-10.5) 09/15/23 05:30 Magnesium 2.1 mg/dL (1.7-2.3) 09/15/23 05:30 Total Bilirubin 0.6 mg/dL (0.15-1.2) 09/15/23 05:30 AST 31 U/L (0-32) 09/15/23 05:30 ALT 31 U/L (0-33) 09/15/23 05:30 Alkaline Phosphatase 199 U/L (35-105) H 09/15/23 05:30 Troponin T Baseline 47 ng/L (0-10) H 09/13/23 07:37 Troponin T 120 Minute 46.92 ng/L (0-10) H 09/13/23 09:46 Delta Troponin T -0.08 ABS# (0-10) L 09/13/23 09:46 Troponin T Hi Sens 6Hr 46.88 ng/L (0-10) H 09/13/23 13:42 Troponin T Hi Sens 6Hr Delta -0.12 ng/L (0-12) L 09/13/23 13:42 Total Protein 5.6 g/dL (6.6-8.7) L 09/15/23 05:30 Albumin 3.9 g/dL (3.5-5.2) 09/15/23 05:30 Globulin 1.7 g/dL (1.3-4.6) 09/15/23 05:30 Lipase 19 U/L (13-60) 09/13/23 07:37 TSH 1.08 uIU/mL (0.27-4.20) 09/13/23 07:37 Urine Color Straw (Yellow) 09/13/23 13:23 Urine Appearance Clear (CLEAR) 09/13/23 13:23 Urine pH 5 (5-7) 09/13/23 13:23 Ur Specific [place] 1.010 (1.005-1.030) 09/13/23 13:23 Urine Protein Neg (Negative) 09/13/23 13:23 Urine Glucose (UA) Norm (Normal) 09/13/23 13:23 Urine Ketones Negative (Negative) 09/13/23 13:23 Urine Blood Neg (Negative) 09/13/23 13:23 Urine Nitrate Negative (Negative) 09/13/23 13:23 Urine Bilirubin Neg (Negative) 09/13/23 13:23 Urine Urobilinogen Norm mg/dL (Negative) 09/13/23 13:23 Ur Leukocyte Esterase Trace (Negative) H 09/13/23 13:23 Urine RBC None /hpf (0-2) 09/13/23 13:23 Urine WBC 0-4 /hpf (0-5) H 09/13/23 13:23 Ur Squamous Epith Cells Rare /hpf (0-5) 09/13/23 13:23 Amorphous Sediment Not Reportable 09/13/23 13:23 Urine Bacteria Trace /hpf (NONE) 09/13/23 13:23 Vitals Last Vital Signs Temp 97.6 F 09/15/23 11:21 Pulse 102 H 09/15/23 11:21 Resp 16 09/15/23 11:21 BP 117/88 09/15/23 11:21 Pulse Ox 96 09/15/23 11:21 O2 Del Method Nasal Cannula 09/15/23 11:21 O2 Flow Rate 2 09/15/23 10:30 Discharge Plan Discharge Patient Disposition: Home Condition: Stable Prescriptions: New pantoprazole 40 mg Tablet,Delayed Release (Dr/Ec) 40 mg PO BID Qty: 60 0RF potassium chloride 20 mEq tablet extended release 20 meq PO DAILY Qty: 30 0RF diltiazem HCl [DILT-XR] 180 mg Capsule,Ext.Rel 24h Degradable 180 mg PO DAILY Qty: 30 0RF furosemide [Lasix] 40 mg tablet 40 mg PO DAILY Qty: 30 0RF Continued ropinirole 4 mg tablet 4 mg PO BEDTIME venlafaxine 150 mg tablet extended release 24hr 150 mg PO DAILY ergocalciferol (vitamin D2) 1,250 mcg (50,000 unit) capsule 1,250 mcg PO Q7D Rx Instructions: (ON WEDNESDAY) clobetasol 0.05 % gel 1 applic topical DAILY magnesium oxide 250 mg magnesium tablet 250 mg PO DAILY Xarelto 20 mg tablet 20 mg PO DAILY Qty: 90 3RF Rx Instructions: 340B nitroglycerin 0.4 mg tablet, sublingual 0.4 mg sublingual Q5M PRN (Reason: chest pain) Qty: 25 0RF Rx Instructions: do not exceed 3 doses per episode atorvastatin 40 mg Tablet 40 mg PO BEDTIME Qty: 90 0RF ascorbic acid (vitamin C) [Vitamin C] 500 mg Tablet 1,000 mg PO QAM Zinc (with A and C) Lozenges Lozenge 1 gilbert PO DAILY hydrocodone-acetaminophen 5-325 mg tablet 1 - 2 tab PO Q4H PRN (Reason: pain) cyanocobalamin (vitamin B-12) 1,000 mcg/mL solution 1,000 mcg IM Q30D gabapentin 100 mg capsule 200 mg PO BEDTIME Discharge Orders: Discharge Order (Routine); Ordered 09/15/23 Ordered By: Cameron Garcia Other Ambulatory Orders: MCT/Event Monitor 21 Days (Routine) Timeframe: 1 Day Facility: [facility] - Location: Radiology Ordered By: Cameron Garcia Referrals: Glenna Coelho MD [Physician] - 2 weeks (Follow-up atrial fibrillation, heart failure) June Merchant [Primary Care Provider] - 09/22/23 1:00 pm (BMP on follow-up) Discharge Diet: Cardiac Discharge Activity: Increase activity as tolerated Patient Instructions: Opioid Safety Activity Restrictions/Additional Instructions: Take all medicine as prescribed Weigh yourself daily. If greater than 3 pounds weight gain in 2 days straight please call your primary care provider Return for any concerns Home oxygen evaluation prior to discharge Event monitor on discharge Follow-up with your primary care provider 3 to 5 days, Dr. Coelho in 2 weeks Discharge Attestations Time Spent in Discharge Care*: greater than 30 min Quality Metrics Clinical Quality Measures [ No reported AMI, CVA or VTE this stay] Coding Level of Care Code 91875 Total time (in minutes) for Discharge: 36 Diagnoses Atrial fibrillation I48.91 Congestive heart failure I50.9 Transaminitis R74.01 History of pulmonary embolism Z86.711
== END 2023-09-15 13:53 | disposition home or self-care (01) | DRG 308 ==
LOC: ER 07:38 → ER IP 13:37 → CSU 14:49
PROVIDERS: Admitting Provider Internal Medicine; Emergency Provider Family Medicine; PCP Nurse Practitioner Family; Visit Provider Internal Medicine
DX: I48.91 Unspecified atrial fibrillation (principal); I50.31 Acute diastolic (congestive) heart failure; Z79.01 Long term (current) use of anticoagulants; I48.92 Unspecified atrial flutter; Z86.711 Personal history of pulmonary embolism; Z86.718 Personal history of other venous thrombosis and embolism; I11.0 Hypertensive heart disease with heart failure; Z87.891 Personal history of nicotine dependence; J44.9 Chronic obstructive pulmonary disease, unspecified; Z99.81 Dependence on supplemental oxygen; I25.10 Atherosclerotic heart disease of native coronary artery without angina pectoris; Z95.5 Presence of coronary angioplasty implant and graft; F41.8 Other specified anxiety disorders; E78.5 Hyperlipidemia, unspecified; G47.33 Obstructive sleep apnea (adult) (pediatric); I27.20 Pulmonary hypertension, unspecified; G25.81 Restless legs syndrome; K76.1 Chronic passive congestion of liver; Z95.828 Presence of other vascular implants and grafts
CPT/HCPCS: 36415; 71045; 74176; 76705; 80053; 81001; 83690; 83735; 84443; 84484; 85025; 93005; 93306; 94760; 96365; 96372; 96375; 96376; 99285; A9270; J1650; J1940; J2405; J3475; J3490

== ENCOUNTER → 2023-09-24 08:35 | Outpatient (BNVA) | payer MEDICARE, SELFPAY | PROVIDERS: PCP Nurse Practitioner Family; Visit Provider Nurse Practitioner Family | DX: I11.0 Hypertensive heart disease with heart failure (principal); I50.9 Heart failure, unspecified; I48.91 Unspecified atrial fibrillation; Z79.01 Long term (current) use of anticoagulants; Z87.891 Personal history of nicotine dependence | CPT/HCPCS: 99214 ==

== ENCOUNTER 2023-09-26 15:41 | Inpatient (IN) | payer MEDICARE, SELFPAY ==
[2023-09-26] VITALS (17 sets, daily range): BP systolic 115–168; BP diastolic 60–113; PULSE 70–152; RESP 16–26; TEMP 36.7–37.2; O2SAT 83–99; BMI 27.3
--- NOTE | 2023-09-26 16:14 | XRR_ITS ---
PROCEDURE INFORMATION: Exam: XR Chest Exam date and time: 09/26/2023 4:23 PM Age: 88 years old Clinical indication: Pain; Chest pressure; Prior surgery; Surgery date: 6+ months; Surgery type: Stents; Additional info: Cp TECHNIQUE: Imaging protocol: Radiologic exam of the chest. Views: 1 view. COMPARISON: CR XR chest 1V portable [id number] 09/13/2023 8:15 AM FINDINGS: Lungs: Unremarkable. No consolidation. Pleural spaces: Unremarkable. No pleural effusion. No pneumothorax. Heart/Mediastinum: See Vasculature finding. Vasculature: Borderline cardiomegaly and mild uncoiling of the thoracic aorta. Bones/joints: Pedicle screws and rods extend from the midthoracic through the lumbar spine, incompletely imaged. XR/XR chest 1V [id number] IMPRESSION: No acute cardiopulmonary disease.
--- NOTE | 2023-09-26 16:15 | ECG_ITS ---
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 Measurements Intervals [place] Rate: 119 P: 0 [place]: 0 QRS: 56 QRSD: 94 T: 90 QT: 294 QTc: 414 Interpretive Statements ATRIAL FIBRILLATION WITH RAPID VENTRICULAR RESPONSE MINIMAL ST DEPRESSION [0.025+ mV ST DEPRESSION] ABNORMAL RHYTHM ECG Compared to ECG 09/13/2023 17:28:34 No significant changes Electronically Signed On 09-26-2023 22:09:33 DREDGE OPERATOR SUPERVISOR by Glenna Coelho M.D. [email or web address] county general hospitalBay [employer] (P)[facility].[employer] [place] [employer]/store/Ov/[id number]
--- NOTE | 2023-09-26 16:59 | W.ED.NAVMDI ---
HPI - Nausea/Vomiting/Diarrhea General: Chief complaint: Nausea/Vomiting/Diarrhea Stated complaint: Cp Time Seen by Provider: 09/26/23 16:59 History of Present Illness: 88-year-old female presents emerged department complaints of substernal chest pain. She states that started yesterday and was intermittent. She states that approximately 2 weeks ago she was admitted to the hospital for onset of atrial fibrillation. She states she feels like her heart is racing again constantly today that started approximately 4 hours ago. She states she has felt nauseated and dizzy at the time that her heart started racing. She states she has not missed any medications. She states that her chest pain is a 6 out of 10. Associated nausea: Yes Associated symtoms: Reports chest pain, nausea and palpitations Review of Systems General: Reports: 10 or more systems reviewed and unremarkable except in HPI and below Card: Reports: chest pain, palpitations and irregular heart rhythm GI: Reports: nausea PFSH ED PFSH: Medical History Acute blood loss anemia (ABLA) Acute encephalopathy Acute on chronic respiratory failure with hypoxia and hypercapnia Anemia Atrial fibrillation Bradycardia Chest pain Chest pain Chronic back pain Chronic respiratory failure with hypoxia and hypercapnia Congestive heart failure COPD (chronic obstructive pulmonary disease) Uses trilogy at night with 2 L. Typically not on oxygen during day. Coronary artery disease Depression Depression with anxiety DVT (deep venous thrombosis) Dysphagia Dysphagia Dyspnea or other respiratory complaints Elevated troponin Fusion of spine Hallucinations, unspecified History of cancer of vulva History of pulmonary embolism Hx of blood clots Hyperlipidemia Hypertension Lumbar radiculopathy Medication side effects present Melanotic stools Obstructive sleep apnea Post-op pain Pulmonary embolism Pulmonary hypertension Restless leg syndrome Surgical History H/O: hysterectomy History of back surgery History of coronary artery stent placement History of hip replacement History of knee replacement History of tonsillectomy Presence of vena cava filter Family History Other Cancer Chronic back pain Social History Smoking and tobacco/nicotine status: former use of tobacco/nicotine Alcohol intake: current Alcohol intake frequency: few times a month Caregiver/support person: Yes Lives independently: Yes Household members: spouse Housing: House Physical Exam Narrative: EXAM NARRATIVE: Constitutional: the patient appears well nourished and with normal development. Vital signs reviewed as documented. HENMT: Normocephalic, atraumatic. Extermal ears with normal appearance without drainage. Nose without drainage, normal appearance. Mucus membranes moist. Neck is supple, No jugular venous distension, trachea is midline, no appreciable carotid bruits. No lymphadenopathy. No meningeal signs. Flexion, extension and lateral rotation is without pain. Eyes: Pupils are equal, round, reactive to light and accommodation. No scleral icterus. Extra-ocular movement are intact. Thorax is symmetrical and with equal rise and fall with respirations. Resp: Lungs are clear to auscultation. No wheezes, rales, crackles or ronchi at present. Cardio: Atrial fibrillation with rapid ventricular response with a heart rate of 157. Positive S1, S2. No appreciable murmurs, rubs or gallops. GI: Abdominal exam reveals normal bowel sounds to all quadrants. No organomegaly. No obvious palpable masses noted. No hepatomegally appreciated. Soft, nontender to palpation. Extremity: Extremities are non-edematous and both femoral and pedal pulses are 2+ and equal bilaterally. Moves all extremities well, sensation in all extremities. Neuro: Alert and oriented x4, person, place, time and situation. Cranial nerves II through XII are grossly intact, there is no focal neurological deficits that I can appreciate at present. Motor strength in the upper and lower extremities are equal and bilateral 5/5. Psych: Cooperative, calm, normal thought process, appropriate judgment. Skin: No lesions, rashes. No gross abnormalities noted. Back: Symmetrical, no obvious deformity, No CVA tenderness Course Vital Signs: Vital signs: Vital Signs Temperature 98.9 F 09/26/23 15:47 Pulse Rate 90 09/26/23 18:20 Respiratory Rate 18 09/26/23 18:20 Blood Pressure 129/69 09/26/23 18:20 Pulse Oximetry 88 L 09/26/23 18:20 Oxygen Delivery Me thod Room Air 09/26/23 18:20 MDM - Nausea/Vomiting/Diarrhea Medical Decision Making Physical exam completed and documented, I will obtain chest x-ray, EKG cardiac enzymes CBC and CMP as well as anticoagulation studies and evaluate. I will provide the patient IV Cardizem after obtaining IV access and start her on a Cardizem drip for her rate control. I have reviewed the patient's previous medical record and her previous discharge summary. Medical Records I reviewed the patient's medical records. Lab Data I reviewed the patient's lab results. 09/26/23 16:52 09/26/23 16:52 Radiology Impressions Chest X-Ray 09/26/23 16:14 IMPRESSION: No acute cardiopulmonary disease. Laboratory Results WBC 5.61 10^3/uL (3.29-11.43) 09/26/23 16:52 RBC 4.73 10^6/uL (3.85-5.65) 09/26/23 16:52 Hgb 14.60 g/dL (11.27-16.99) 09/26/23 16:52 Hct 48.5 % (36-47) H 09/26/23 16:52 MCV 102.5 fl (85-98) H 09/26/23 16:52 MCH 30.9 pg (27-33) 09/26/23 16:52 MCHC 30.1 g/dL (30-55) 09/26/23 16:52 RDW 12.9 % (12.1-15.1) 09/26/23 16:52 Plt Count 138 10^3/cmm (157-399) L 09/26/23 16:52 MPV 9.4 fL (7.4-10.4) 09/26/23 16:52 Neut % (Auto) 66.1 % 09/26/23 16:52 Lymph % (Auto) 18.7 % 09/26/23 16:52 Mcdowell % (Auto) 13.9 % 09/26/23 16:52 Eos % (Auto) 0.4 % 09/26/23 16:52 Baso % (Auto) 0.5 % 09/26/23 16:52 Neut # (Auto) 3.71 10^3/uL (1.8-7.7) 09/26/23 16:52 Lymph # (Auto) 1.1 10^3/uL (0.8-4.8) 09/26/23 16:52 Mcdowell # (Auto) 0.8 10^3/uL (0.2-0.9) 09/26/23 16:52 Eos # (Auto) 0.0 10^3/uL (0.0-0.8) 09/26/23 16:52 Baso # (Auto) 0.0 10^3/uL (0.0-0.1) 09/26/23 16:52 Nucleated RBC % (auto) 0 % 09/26/23 16:52 Nucleated RBCs # 0.0 /100WBC 09/26/23 16:52 Sodium 135 mmol/L (136-145) L 09/26/23 16:52 Sodium Cancelled 09/26/23 16:52 Potassium 4.3 mmol/L (3.5-5.1) 09/26/23 16:52 Potassium Cancelled 09/26/23 16:52 Chloride 100 mmol/L (98-107) 09/26/23 16:52 Chloride Cancelled 09/26/23 16:52 Carbon Dioxide 23 mmol/L (22-29) 09/26/23 16:52 Carbon Dioxide Cancelled 09/26/23 16:52 Anion Gap 16.3 (5-19) 09/26/23 16:52 Anion Gap Cancelled 09/26/23 16:52 BUN 19 mg/dL (8-23) 09/26/23 16:52 BUN Cancelled 09/26/23 16:52 Creatinine 0.7 mg/dL (0.5-0.9) 09/26/23 16:52 Creatinine Cancelled 09/26/23 16:52 GFR Calculation Cancelled 09/26/23 16:52 GFR Calculation Not Reportable 09/26/23 16:52 Glucose 89 mg/dL (65-115) 09/26/23 16:52 Glucose Cancelled 09/26/23 16:52 Calculated Osmolality 282 mOsm/kg (285-295) L 09/26/23 16:52 Calculated Osmolality Cancelled 09/26/23 16:52 Calcium 9.7 mg/dL (8.5-10.5) 09/26/23 16:52 Calcium Cancelled 09/26/23 16:52 Total Bilirubin 0.7 mg/dL (0.15-1.2) 09/26/23 16:52 Total Bilirubin Cancelled 09/26/23 16:52 AST 30 U/L (0-32) 09/26/23 16:52 AST Cancelled 09/26/23 16:52 ALT 20 U/L (0-33) 09/26/23 16:52 ALT Cancelled 09/26/23 16:52 Alkaline Phosphatase 186 U/L (35-105) H 09/26/23 16:52 Alkaline Phosphatase Cancelled 09/26/23 16:52 Troponin T Baseline 48 ng/L (0-10) H 09/26/23 16:52 NT-Pro-B Natriuret Pep 1994 pg/mL (0-450) H 09/26/23 16:52 Total Protein 6.6 g/dL (6.6-8.7) 09/26/23 16:52 Total Protein Cancelled 09/26/23 16:52 Albumin 3.8 g/dL (3.5-5.2) 09/26/23 16:52 Albumin Cancelled 09/26/23 16:52 Globulin 2.8 g/dL (1.3-4.6) 09/26/23 16:52 Globulin Cancelled 09/26/23 16:52 Ethyl Alcohol < 10 mg/dL (0-10) 09/26/23 16:52 All radiology interpretation(s) finalized by discharge Critical Care Time Critical Care Time: Critical Care Time: Yes Total Critical Care Time: 75 Attestation: This case had a high probability of a clinically significant, sudden, or life threatening deterioration of this patient's condition which required my full and direct attention, intervention and personal management. Discharge Plan Discharge Patient Disposition: Admitted As Inpatient Clinical Impression: Atrial fibrillation with rapid ventricular response Condition: Stable Coding Level of Care Code ED Partner Marketing Manager for Garett Leija
[2023-09-26 17:05] LABS: Basophils % 0.5 %; Eosinophils % 0.4 %; Hematocrit 48.5 % (36-47); Lymphocytes # 1.1 10^3/uL (0.8-4.8); Lymphocytes % 18.7 %; Mean Corpuscular HGB Conc 30.1 g/dL (30-55); Mean Corpuscular Hemoglobin 30.9 pg (27-33); Mean Corpuscular Volume 102.5 fl (85-98); Mean Platelet Volume 9.4 fL (7.4-10.4); Monocytes # 0.8 10^3/uL (0.2-0.9); Monocytes % 13.9 %; Neutrophils # 3.71 10^3/uL (1.8-7.7); Neutrophils % 66.1 %; Nucleated Red Blood Cells % 0 %; Platelet Count 138 10^3/cmm (157-399); Red Blood Count 4.73 10^6/uL (3.85-5.65); Red Cell Distribution Width 12.9 % (12.1-15.1); White Blood Count 5.61 10^3/uL (3.29-11.43)
[2023-09-26 17:24] LABS: Troponin(5th) Baseline 48 ng/L (0-10)
[2023-09-26] MEDS: ondansetron 2 mg/ML SDV 2 mL 4 MG IVP (17:24)
[2023-09-26 17:31] LABS: Alanine Aminotransferase 20 U/L (0-33); Albumin Level 3.8 g/dL (3.5-5.2); Alcohol Level < 10 mg/dL (0-10); Alkaline Phosphatase 186 U/L (35-105); Anion Gap 16.3 (5-19); Aspartate Amino Transferase 30 U/L (0-32); Blood Urea Nitrogen 19 mg/dL (8-23); Calcium 9.7 mg/dL (8.5-10.5); Carbon Dioxide 23 mmol/L (22-29); Chloride 100 mmol/L (98-107); Creatinine Clr Calc Pharmacy 50.9646; Globulin 2.8 g/dL (1.3-4.6); Glucose 89 mg/dL (65-115); Osmolality Calculated 282 mOsm/kg (285-295); Potassium 4.3 mmol/L (3.5-5.1); Sodium 135 mmol/L (136-145); Total Bilirubin 0.7 mg/dL (0.15-1.2); Total Protein 6.6 g/dL (6.6-8.7)
[2023-09-26 17:33] LABS: NT Pro B Type Natriuretic Pept 1994 pg/mL (0-450)
[2023-09-26] MEDS: dilTIAZem 5 mg/mL SDV 5 mL 20 MG IVP (17:42)
[2023-09-26] MEDS: dilTIAZem 100 MG in sodium chloride 0.9% (add-van) 100 ML IV (18:10)
--- NOTE | 2023-09-26 18:15 | ECG_ITS ---
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 [id number]
--- NOTE | 2023-09-26 18:17 | PC.NURSE ---
PT HR 80BPM. ASKED PHYSICIAN FOR ORDER TO START CARDIZEM DRIP AT 2.5MG INSTEAD OF 5MG. PHYSICIAN DENIED AND GAVE VERBAL INSTRUCTION TO START AT 5MG.
--- NOTE | 2023-09-26 18:24 | PM.HP ---
Providers/Chief Complaint Primary Care Provider: June Merchant Chief Complaint: Cp History of Present Illness Maria Teresa Woodruff is a 88 year old female with history of A-fib, was recently discharged from the hospital after management of A-fib RVR presented today with chest pain and her heart rate on admission was 166 received Cardizem and symptoms improved. Patient has been compliant with her medications. Echo showed preserved ejection fraction left atrial diameter more than 4 cm, moderate pulmonary hypertension Patient is stating that she has recently seen Dr. Coelho no change in medication was recommended, she is compliant with the medications, for last 1 day she has been experiencing multiple episodes of nausea and vomiting, she also started experiencing pain in her chest on right upper right side which is reproducible, she has not noticed any fever, diarrhea, Review of Systems Const: Denies: change in weight Eyes: Denies: change in vision ENMT: Denies: throat pain Card: Reports: chest pain Resp: Denies: dyspnea GI: Denies: abdominal pain : Denies: flank pain Musc: Denies: neck pain Skin/Breast: Denies: rash Neuro: Denies: headache(s) Medications/Allergies Home Medications Medication Instructions Recorded Confirmed Last Taken Type ergocalciferol (vitamin D2) 1,250 1,250 mcg PO Q7D 05/21/21 09/24/23 09/28/21 History mcg (50,000 unit) capsule clobetasol 0.05 % topical gel 1 applic topical DAILY 09/09/21 09/24/23 09/27/21 History atorvastatin 40 mg tablet 40 mg PO BEDTIME #90 tabs 04/13/22 09/24/23 07/31/22 Rx nitroglycerin 0.4 mg sublingual 0.4 mg sublingual Q5M PRN chest 04/13/22 09/24/23 Unknown Rx tablet pain #25 tabs ascorbic acid (vitamin C) 500 mg 1,000 mg PO QAM 08/01/22 09/24/23 09/11/23 History tablet (Vitamin C) hydrocodone 5 mg-acetaminophen 325 1 - 2 tab PO Q4H PRN pain 08/31/22 09/24/23 09/13/23 History mg tablet vit A-vit H-glvy-anekfkdt lozenges 1 gilbert PO DAILY 08/31/22 09/24/23 Unknown History (Zinc (with Vitamins A and C) Lozenges) magnesium oxide 250 mg PO DAILY 01/05/23 09/24/23 Unknown History rivaroxaban 20 mg tablet (Xarelto) 20 mg PO DAILY #90 tabs 02/22/23 09/24/23 08/24/23 08:55 Rx gabapentin 100 mg capsule 200 mg PO BEDTIME 09/13/23 09/24/23 09/13/23 History pantoprazole 40 mg tablet,delayed 40 mg PO BID #60 tabs 09/15/23 09/24/23 Unknown Rx release potassium chloride 20 mEq 20 meq PO DAILY #30 tabs 09/15/23 09/24/23 Unknown Rx tablet,extended release diltiazem HCl 180 mg 180 mg PO DAILY #90 caps 09/24/23 09/24/23 Unknown Rx capsule,extended release 24 hr, controlled (DILT-XR) Allergies Allergy/AdvReac Type Severity Reaction Status Date / Time epinephrine Allergy Unknown Unknown Verified 09/26/23 15:46 amoxicillin Allergy rash Verified 09/26/23 15:46 hydrochlorothiazide Allergy unknown Verified 09/26/23 15:46 Iodinated Contrast Media Allergy Unknown Verified 09/26/23 15:46 morphine Allergy nausea, Verified 09/26/23 15:46 hyper Penicillins Allergy rash Verified 09/26/23 15:46 Tetanus Vaccines and Toxoid Allergy unk Verified 09/26/23 15:46 PFSH Acute PFSH: Medical History Acute blood loss anemia (ABLA) Acute encephalopathy Acute on chronic respiratory failure with hypoxia and hypercapnia Anemia Atrial fibrillation Bradycardia Chest pain Chest pain Chronic back pain Chronic respiratory failure with hypoxia and hypercapnia Congestive heart failure COPD (chronic obstructive pulmonary disease) Uses trilogy at night with 2 L. Typically not on oxygen during day. Coronary artery disease Depression Depression with anxiety DVT (deep venous thrombosis) Dysphagia Dysphagia Dyspnea or other respiratory complaints Elevated troponin Fusion of spine Hallucinations, unspecified History of cancer of vulva History of pulmonary embolism Hx of blood clots Hyperlipidemia Hypertension Lumbar radiculopathy Medication side effects present Melanotic stools Obstructive sleep apnea Post-op pain Pulmonary embolism Pulmonary hypertension Restless leg syndrome Surgical History H/O: hysterectomy History of back surgery History of coronary artery stent placement History of hip replacement History of knee replacement History of tonsillectomy Presence of vena cava filter Family History Other Cancer Chronic back pain Social History Smoking and tobacco/nicotine status: former use of tobacco/nicotine Alcohol intake: current Alcohol intake frequency: few times a month Caregiver/support person: Yes Lives independently: Yes Household members: spouse Housing: House Vitals/I&O/Wt Last Vital Signs Temp 98.9 F 09/26/23 15:47 Pulse 90 09/26/23 18:20 Resp 18 09/26/23 18:20 BP 129/69 09/26/23 18:20 Pulse Ox 88 L 09/26/23 18:20 O2 Del Method Room Air 09/26/23 18:20 Weight last 48 hrs Weight 74.389 kg Physical Exam Narrative: Signs of congestive heart failure not present Clinically patient is dehydrated A-fib RVR improved currently heart rate in 70s on Cardizem drip Currently on room air Hemodynamic stable Present GCS 17 elderly female No acute distress No active chest pain Data 09/26/23 16:52 09/26/23 16:52 A&P Assessment and plan (1) Atrial fibrillation with rapid ventricular response: (2) Chest discomfort: (3) Recurrent vomiting: Plan Paroxysmal A-fib RVR Left atrial diameter is greater than 4 cm Preserved this fraction Patient is symptomatic with RVR Titrate off Cardizem drip Patient may need antiarrhythmic agent, Normal TSH Pulm hypertension present Recurrent nausea vomiting We will do CT scan of abdomen pelvis without contrast No recent fever Abdomen is soft Unstable angina Could be related to A-fib RVR Symptoms improved with rate control Monitor troponins No need to repeat echo Diastolic congestive heart failure Judicious use of Lasix DNR/DNI Cardiac diet Attestations Medical Necessity Statement*: Anticipating discharge within 40 hours Diagnoses Atrial fibrillation with rapid ventricular response I48.91 Chest discomfort R07.89 Recurrent vomiting R11.10
--- NOTE | 2023-09-26 18:54 | CTR_ITS ---
PROCEDURE INFORMATION: Exam: CT Abdomen And Pelvis Without Contrast Exam date and time: 09/26/2023 7:02 PM Age: 88 years old Clinical indication: Nausea and vomiting; Prior surgery; Surgery date: 6+ months; Surgery type: Coronary stent. Spinal fusion. Hysterectomy. Ar. Vc filter. Patient HX: N/v; Additional info: Nausea vomiting TECHNIQUE: Imaging protocol: Computed tomography of the abdomen and pelvis without contrast. Radiation optimization: All CT scans at this facility use at least one of these dose optimization techniques: automated exposure control; mA and/or kV adjustment per patient size (includes targeted exams where dose is matched to clinical indication); or iterative reconstruction. REPORTING DATA: Count of CT and Cardiac NM exams in prior 12 months: This patient has received 3 known CTs and 0 known cardiac nuclear medicine studies in the 12 months prior to the current study. COMPARISON: CT abdomen pelvis wo con [id number] 09/13/2023 9:23 AM RADIATION DOSE METRICS: Total DLP (mGy-cm): 610.52 FINDINGS: Lungs: Clear basilar lung parenchyma. Pleural spaces: No pleural fluid. Heart: Moderate cardiomegaly. Liver: Normal configuration. Homogeneous parenchyma. Gallbladder and bile ducts: Probable cholelithiasis. No gallbladder inflammatory change. Pancreas: Advanced fatty atrophy of the pancreas without visible inflammation, mass, or ductal dilation. Spleen: Normal. No splenomegaly. Adrenal glands: Left adrenal is enlarged by a 2.8 cm nodule with attenuation coefficient measuring 10 Hounsfield units. Normal right adrenal. Kidneys and ureters: Exophytic simple cyst left kidney. No evidence of renal obstruction. Stomach and bowel: Decompressed stomach. Normal caliber small bowel. Extensive diverticulosis throughout the colon without evidence of acute diverticulitis. Appendix: Appendix is not visualized as a discrete structure but there is no inflammation at the cecal base. Intraperitoneal space: There is trace pelvic free fluid, improved when compared to the prior exam. Vasculature: IVC filter is in place and appears tilted within the inferior vena cava, unchanged from prior. Moderate aortoiliac calcific atherosclerosis without aneurysm. Lymph nodes: No enlarged lymph nodes. Urinary bladder: Unremarkable as visualized. Reproductive: Prior hysterectomy. No evidence of vaginal cuff or adnexal mass. Bones/joints: Extensive thoracolumbar fusion hardware noted. There has been prior laminectomy and bilateral sacroiliac joint fusion. Right hip prosthesis with long femoral stem is noted. There is severe subjective bony demineralization. No acute bony abnormality is evident. Soft tissues: Normal ileus psoas margins. CT/CT abdomen pelvis wo con [id number] IMPRESSION: 1. No acute abnormality identified to explain patient's nausea and vomiting. In particular, there are no findings of bowel obstruction or urolithiasis. There is extensive diverticulosis throughout the colon but no evidence of acute diverticulitis. Previously seen pelvic free fluid has almost completely resolved. 2. Stable benign pattern left adrenal nodule. 3. Probable cholelithiasis could be further investigated with ultrasound. COMMENTS: 1. Consistent with the [employer]'s Incidental Findings Committee white paper (J Am Mckay Radiol 2017): For any incidental adrenal lesion greater than or equal to 1 cm but less than or equal to 4 cm classified in this report as benign, likely benign, or containing fat (including classification as an adenoma or myelolipoma), no follow-up imaging is recommended per consensus recommendations based on imaging criteria. Further lab evaluation could be pursued if warranted based on clinical findings. 2. For patients with an IVC filter, recommend assessment for a management plan for the patient's IVC filter. If there is no established management plan, recommend referral to an interventional clinician on a nonemergent basis for evaluation. 3. Consistent with the [employer]'s Incidental Findings Committee white paper (J Am Mckay Radiol 2018): Any incidental renal lesion less than 1 cm or classified as too small to characterize, or any incidental cystic renal lesion characterized as simple-appearing, is likely benign. No follow-up imaging is recommended for these lesions per consensus recommendations based on imaging criteria.
[2023-09-26 20:09] LABS: Troponin 5 2HR 48.99 ng/L (0-10)
[2023-09-26 20:15] LABS: Troponin 5 2HR Delta 0.99 ABS# (0-10)
[2023-09-26] MEDS: dilTIAZem 60 mg Tablet PO (20:19)
--- NOTE | 2023-09-26 21:08 | PC.NURSE ---
Spoke with Dr. Julien regarding patint home medications, gabapentin and hydrocodone-acetaminophen. said ok to resume home medications.
[2023-09-26] MEDS: gabapentin 100 mg Capsule 200 MG PO (22:44)
[2023-09-26] MEDS: HYDROcodone-acetaminophen 5-325 mg Tablet 1 TAB PO (22:44)
[2023-09-26 23:09] LABS: Add Urine Microscopic? YES; Bilirubin Urine Neg (Negative); Blood Urine 2+ (Negative); Glucose Urine UA Norm (Normal); Ketones Urine 1+ (Negative); Leukocyte Esterase Urine 1+ (Negative); Nitrate Urine Negative (Negative); Protein Urine Trace (Negative); Urine Appearance Clear (CLEAR); Urine Color Yellow (Yellow); Urobilinogen Urine Neg (Negative); pH Urine 5 (5-7)
[2023-09-26 23:10] LABS: Amorphous Sediment Urine 2+ /hpf; Bacteria Urine TRACE /hpf; RBC Urine 0-4 /hpf (0-2); WBC Urine 0-4 /hpf (0-5)
[2023-09-26 23:11] LABS: Add Urine Culture? Yes
[2023-09-27] VITALS (14 sets, daily range): BP systolic 102–131; BP diastolic 59–94; PULSE 69–105; RESP 16–23; TEMP 36.6–36.9; O2SAT 92–98
[2023-09-27] MEDS: dilTIAZem 60 mg Tablet PO ×4 (01:44→23:47)
[2023-09-27 04:22] LABS: Basophils % 0.8 %; Eosinophils # 0.1 10^3/uL (0.0-0.8); Eosinophils % 1.3 %; Hematocrit 42.8 % (36-47); Lymphocytes # 1.2 10^3/uL (0.8-4.8); Lymphocytes % 31.1 %; Mean Corpuscular HGB Conc 30.1 g/dL (30-55); Mean Corpuscular Hemoglobin 30.5 pg (27-33); Mean Corpuscular Volume 101.2 fl (85-98); Mean Platelet Volume 9.5 fL (7.4-10.4); Monocytes # 0.7 10^3/uL (0.2-0.9); Monocytes % 17.6 %; Neutrophils # 1.92 10^3/uL (1.8-7.7); Neutrophils % 48.9 %; Nucleated Red Blood Cells % 0 %; Platelet Count 152 10^3/cmm (157-399); Red Blood Count 4.23 10^6/uL (3.85-5.65); Red Cell Distribution Width 13.1 % (12.1-15.1); White Blood Count 3.92 10^3/uL (3.29-11.43)
[2023-09-27 04:35] LABS: Magnesium 1.7 mg/dL (1.7-2.3)
[2023-09-27 04:45] LABS: Anion Gap 11.1 (5-19); Blood Urea Nitrogen 19 mg/dL (8-23); Carbon Dioxide 30 mmol/L (22-29); Chloride 103 mmol/L (98-107); Glucose 85 mg/dL (65-115); Osmolality Calculated 292 mOsm/kg (285-295); Potassium 4.1 mmol/L (3.5-5.1); Sodium 140 mmol/L (136-145)
[2023-09-27] MEDS: acetaminophen 500 mg Tablet PO (06:49)
[2023-09-27] MEDS: magnesium oxide 400 mg tablet PO (08:27)
[2023-09-27] MEDS: rivaroxaban 10 mg Tablet 20 MG PO (08:27)
[2023-09-27] MEDS: potassium chloride ER 10 mEq Tablet 20 MEQ PO (08:27)
[2023-09-27] MEDS: ipratropium-albuterol 3 mL Neb INHALATION (10:45)
--- NOTE | 2023-09-27 15:24 | PM.PN ---
Subjective Subjective: seen today rate controlled but having low heart rates into 40's at times, patient says she felt it says shes supposed to be on oxygen 2L at home but does not wear it all the time. She says she feels disoriented at times. Unsure if her oxygen is low at that point. Vitals/I&O/Wt Last Vital Signs Temp 97.8 F 09/27/23 08:00 Pulse 105 H 09/27/23 12:00 Resp 22 H 09/27/23 12:00 BP 112/94 09/27/23 12:00 Pulse Ox 94 09/27/23 12:00 O2 Del Method Nasal Cannula 09/27/23 12:00 O2 Flow Rate 2 09/27/23 10:48 09/27/23 09/27/23 09/27/23 06:59 14:59 22:59 Intake Total 120 / 254.167 476 / 476 Output Total 400 / 400 Balance -280 / -145.833 476 / 476 Weight last 48 hrs Weight 72.665 kg Weight 74.344 kg Weight 74.389 kg Physical Exam Narrative: No acute distress, sitting up in bed with family present at bedside Bilateral crackles at bases appreciated on lung auscultation no wheezes no rhonchi Rhythm still atrial fibrillation however rate controlled in 70s. Cardizem drip is turned off. On 2 L nasal cannula. No lower extremity edema present. Abdomen soft Data 09/27/23 03:40 09/27/23 03:40 A&P Assessment and plan (1) Atrial fibrillation with rapid ventricular response: (2) Chest discomfort: (3) Recurrent vomiting: (4) Congestive heart failure: (5) Diastolic heart failure: Plan Paroxysmal A-fib RVR Left atrial diameter is greater than 4 cm Preserved this fraction Patient is symptomatic with RVR Titrate off Cardizem drip Patient may need antiarrhythmic agent, Normal TSH Pulm hypertension present Continue patient on Cardizem 60 every 8 hours at this time. Previously she was on 60 every 6 which was causing some bradycardic episodes. Recurrent nausea vomiting - resolved We will do CT scan of abdomen pelvis without contrast No recent fever Abdomen is soft Chest pain Could be related to A-fib RVR Symptoms improved with rate control Monitor troponins No need to repeat echo Acute on diastolic congestive heart failure We will place on Lasix 20 IV daily for gentle diuresis. He does have crackles on exam. Currently on 2 L nasal cannula. DNR/DNI Cardiac diet Attestations Medical Necessity Statement*: possible dc in AM Diagnoses Atrial fibrillation with rapid ventricular response I48.91 Chest discomfort R07.89 Recurrent vomiting R11.10 Congestive heart failure I50.9 Diastolic heart failure I50.30
[2023-09-27] MEDS: FUROsemide 10 mg/mL SDV 2mL 20 MG IVP (16:47)
[2023-09-27] MEDS: HYDROcodone-acetaminophen 5-325 mg Tablet 1 TAB PO (20:57)
[2023-09-27] MEDS: gabapentin 100 mg Capsule 200 MG PO (20:58)
[2023-09-28] VITALS (9 sets, daily range): BP systolic 100–160; BP diastolic 8–87; PULSE 72–153; RESP 18–21; TEMP 36.4–36.7; O2SAT 92–97; BMI 26.4
[2023-09-28] MEDS: acetaminophen 500 mg Tablet PO (01:31)
[2023-09-28 04:52] LABS: Basophils % 0.4 %; Eosinophils # 0.1 10^3/uL (0.0-0.8); Eosinophils % 2.6 %; Hematocrit 43.8 % (36-47); Lymphocytes # 1.4 10^3/uL (0.8-4.8); Lymphocytes % 25.5 %; Mean Corpuscular HGB Conc 30.1 g/dL (30-55); Mean Corpuscular Hemoglobin 30.6 pg (27-33); Mean Corpuscular Volume 101.4 fl (85-98); Mean Platelet Volume 10.2 fL (7.4-10.4); Monocytes # 0.8 10^3/uL (0.2-0.9); Monocytes % 14.1 %; Neutrophils # 3.13 10^3/uL (1.8-7.7); Neutrophils % 57.2 %; Nucleated Red Blood Cells % 0 %; Platelet Count 131 10^3/cmm (157-399); Red Blood Count 4.32 10^6/uL (3.85-5.65); Red Cell Distribution Width 12.9 % (12.1-15.1); White Blood Count 5.46 10^3/uL (3.29-11.43)
[2023-09-28 05:14] LABS: Blood Urea Nitrogen 20 mg/dL (8-23); Calcium 8.7 mg/dL (8.5-10.5); Carbon Dioxide 26 mmol/L (22-29); Chloride 102 mmol/L (98-107); Glucose 97 mg/dL (65-115); Magnesium 1.8 mg/dL (1.7-2.3); Osmolality Calculated 289 mOsm/kg (285-295); Sodium 138 mmol/L (136-145)
[2023-09-28 05:43] LABS: Anion Gap 14.1 (5-19); Potassium 4.1 mmol/L (3.5-5.1)
[2023-09-28] MEDS: dilTIAZem 60 mg Tablet PO ×3 (08:01→23:50)
[2023-09-28] MEDS: rivaroxaban 10 mg Tablet 20 MG PO (09:04)
[2023-09-28] MEDS: magnesium oxide 400 mg tablet PO (09:04)
[2023-09-28] MEDS: potassium chloride ER 10 mEq Tablet 20 MEQ PO (09:04)
--- NOTE | 2023-09-28 09:08 | PC.NURSE ---
Provider notified that patient's heart rate has been in the 140-150's since 814. Provider ordered to restart cardizem drip. Drip restart at 5mg at 0855.
--- NOTE | 2023-09-28 09:11 | PC.NURSE ---
Cardizem drip titrated to 2.5mg.
--- NOTE | 2023-09-28 10:19 | P.CONIM_ITS ---
Providers/Reason For Consult Consulting Physician/Specialty*: Cardiology Reason for Consult*: Atrial fibrillation with rapid ventricle rate Requesting Physician: Dr. Campbell Attending Physician: Maria Guadalupe Campbell MD Primary Care Provider: June Merchant History of Present Illness History of Present Illness Maria Teresa Woodruff is a 88 year old female with a long history of atrial fibrillation was readmitted overnight with an atrial fibrillation with rapid ventricular rate. Clinically patient was symptomatic with shortness of air and palpitations. I reviewed her a detailed previous history and medical record. Patient has been having repeated episodes of a atrial fibrillation with rapid ventricular rate in spite of being on appropriate medications. Patient tells me more recently she has been having a lot of stress issues related to her 's worsening dementia. In fact she started crying in the room while talking to me. She also feels her blood pressure goes up every time she is stressed out. A more recent echo showed normal left ventricular function with grade 1 to 2 diastolic dysfunction. This morning her atrial fibrillation rate went up to 140s and she was started on IV Cardizem and currently the heart rate is in 60s to 70s with an atrial fibrillation rhythm. Currently she is laying comfortably. Denies any resting chest pain or shortness of air. No swelling of lower extremities although she does get a little swelling of her feet at times toward the end of the day. Her vitals are stable blood pressure 118/76 heart rate 60-80 atrial fibrillation. And O2 saturation 96% on 2 L nasal cannula. Review of Systems Narrative: Detail 10 point systemic review unremarkable except for as mentioned above in t he history of present illness. Clinically no angina or heart failure symptoms. Medications/Allergies Home Medications Medication Instructions Recorded Confirmed Last Taken Type ergocalciferol (vitamin D2) 1,250 1,250 mcg PO Q7D 05/21/21 09/26/23 09/24/23 History mcg (50,000 unit) capsule clobetasol 0.05 % topical gel 1 applic topical DAILY 09/09/21 09/26/23 09/25/23 History atorvastatin 40 mg tablet 40 mg PO BEDTIME #90 tabs 04/13/22 09/26/23 09/25/23 Rx nitroglycerin 0.4 mg sublingual 0.4 mg sublingual Q5M PRN chest 04/13/22 09/26/23 Unknown Rx tablet pain #25 tabs ascorbic acid (vitamin C) 500 mg 1,000 mg PO QAM 08/01/22 09/26/23 09/26/23 History tablet (Vitamin C) hydrocodone 5 mg-acetaminophen 325 1 tab PO Q8H PRN pain 08/31/22 09/26/23 09/25/23 History mg tablet vit A-vit X-xioy-xlrhzijw lozenges 1 gilbert PO DAILY 08/31/22 09/26/23 09/26/23 History (Zinc (with Vitamins A and C) Lozenges) magnesium oxide 250 mg PO DAILY 01/05/23 09/26/23 09/26/23 History rivaroxaban 20 mg tablet (Xarelto) 20 mg PO DAILY #90 tabs 02/22/23 09/26/23 09/26/23 Rx gabapentin 100 mg capsule 200 mg PO BEDTIME 09/13/23 09/26/23 09/25/23 History pantoprazole 40 mg tablet,delayed 40 mg PO BID #60 tabs 09/15/23 09/26/23 09/26/23 Rx release potassium chloride 20 mEq 20 meq PO DAILY #30 tabs 09/15/23 09/26/23 09/26/23 Rx tablet,extended release diltiazem HCl 180 mg 180 mg PO DAILY #90 caps 09/24/23 09/26/23 09/26/23 Rx capsule,extended release 24 hr, controlled (DILT-XR) Allergies Allergy/AdvReac Type Severity Reaction Status Date / Time epinephrine Allergy Unknown Unknown Verified 09/26/23 15:46 amoxicillin Allergy rash Verified 09/26/23 15:46 hydrochlorothiazide Allergy unknown Verified 09/26/23 15:46 Iodinated Contrast Media Allergy Unknown Verified 09/26/23 15:46 morphine Allergy nausea, Verified 09/26/23 15:46 hyper Penicillins Allergy rash Verified 09/26/23 15:46 Tetanus Vaccines and Toxoid Allergy unk Verified 09/26/23 15:46 Current Medications Generic Name Dose Route Start Last Admin Trade Name Freq PRN Reason Stop Dose Admin Acetaminophen 500 mg 09/26/23 19:48 09/28/23 01:31 Acetaminophen 500 Mg Tablet PO 500 mg Q4H PRN Administration fever Hydrocodone Bitart/Acetaminophen 1 tab 09/26/23 21:57 09/27/23 20:57 Hydrocodone-Acetaminophen 5-325 Mg Tablet PO 1 tab Q8H PRN Administration SEVERE PAIN Albuterol/Ipratropium 3 ml 09/26/23 19:48 09/27/23 10:45 Ipratropium-Albuterol 3 Ml Neb INHALATION 3 ml Q6H PRN Administration SHORTNESS OF BREATH Diltiazem HCl 60 mg 09/27/23 15:30 09/28/23 08:01 Diltiazem 60 Mg Tablet PO 60 mg Q8H LV Administration Gabapentin 200 mg 09/26/23 22:00 09/27/23 20:58 Gabapentin 100 Mg Capsule PO 200 mg BEDTIME LV Administration Diltiazem HCl 100 mg/ Sodium 100 mls @ 0 mls/hr 09/26/23 18:00 09/28/23 08:55 Chloride IV Infused .Q0M LV Titration Protocol Per Protocol Magnesium Oxide 400 mg 09/27/23 09:00 09/28/23 09:04 Magnesium Oxide 400 Mg Tablet PO 400 mg DAILY LV Administration Potassium Chloride 20 meq 09/27/23 09:00 09/28/23 09:04 Potassium Chloride Er 10 Meq Tablet PO 20 meq DAILY LV Administration Rivaroxaban 20 mg 09/27/23 09:00 09/28/23 09:04 Rivaroxaban 10 Mg Tablet PO 20 mg DAILY LV Administration Senna/Docusate Sodium 1 tab 09/27/23 09:00 09/28/23 09:08 Sennosides-Docusate Tablet PO Not Given DAILY LV PFSH Acute PFSH: Medical History Acute blood loss anemia (ABLA) Acute encephalopathy Acute on chronic respiratory failure with hypoxia and hypercapnia Anemia Atrial fibrillation Bradycardia Chest pain Chest pain Chronic back pain Chronic respiratory failure with hypoxia and hypercapnia Congestive heart failure COPD (chronic obstructive pulmonary disease) Uses trilogy at night with 2 L. Typically not on oxygen during day. Coronary artery disease Depression Depression with anxiety DVT (deep venous thrombosis) Dysphagia Dysphagia Dyspnea or other respiratory complaints Elevated troponin Fusion of spine Hallucinations, unspecified History of cancer of vulva History of pulmonary embolism Hx of blood clots Hyperlipidemia Hypertension Lumbar radiculopathy Medication side effects present Melanotic stools Obstructive sleep apnea Post-op pain Pulmonary embolism Pulmonary hypertension Restless leg syndrome Surgical History H/O: hysterectomy History of back surgery History of coronary artery stent placement History of hip replacement History of knee replacement History of tonsillectomy Presence of vena cava filter Family History Other Cancer Chronic back pain Social History Smoking and tobacco/nicotine status: former use of tobacco/nicotine Alcohol intake: current Alcohol intake frequency: few times a month Caregiver/support person: Yes Lives independently: Yes Household members: spouse Housing: House Vitals/I&O/Wt Last Vital Signs Temp 97.6 F 09/28/23 08:00 Pulse 153 H 09/28/23 08:00 Resp 19 H 09/28/23 08:00 BP 134/87 09/28/23 08:00 Pulse Ox 94 09/28/23 08:00 O2 Del Method Nasal Cannula 09/28/23 08:00 O2 Flow Rate 2 09/27/23 21:47 09/27/23 09/28/23 09/28/23 22:59 06:59 14:59 Intake Total 390 / 866 222 / 1088 0 / 0 Balance 390 / 866 222 / 1088 0 / 0 Weight last 48 hrs Weight 158 lb 8 oz Weight 160 lb 3.2 oz Weight 163 lb 14.4 oz Weight 164 lb Physical Exam Narrative: Patient is laying comfortably. No distress. HENMT: OTHER: Normal Eye: OTHER: Unremarkable Neck/C-Spine: OTHER: Normal Resp: OTHER: Good air entry. Minimal Rales at the bases. No expiratory wheezes. Cardio: OTHER: Irregularly irregular pulse, atrial fibrillation, normal first and second heart sounds. Mild systolic murmur. GI: OTHER: Soft abdomen nontender. Bowel sounds audible. Extremity: OTHER: Normal. Trace edema bilaterally at ankles. Neuro: OTHER: Grossly intact. Psych: OTHER: Patient seems to be emotionally disturbed with distressed. Skin: OTHER: Warm and dry. Data 09/28/23 04:00 09/28/23 04:00 A&P Assessment and plan (1) Atrial fibrillation with rapid ventricular response: Plan 88-year-old lady with recurrent episodes of atrial fibrillation with rapid ventricular rate. A detailed history revealed patient does have a chronic atrial fibrillation with episodic A-fib with rapid ventricular rate. Clinically no angina or any active heart failure. Recommendations 1. I will continue with the current management using Cardizem orally. 2. She would certainly benefit from management of anxiety/stress disorder related to her 's current illness 3. In case she continues to have a recurrent episodes of a rapid ventricular rate, I would suggest discontinuing Cardizem and start her on beta-marie met oprolol. 4. To continue her current anticoagulation medication. Thanks for asked me to see this patient in consultation. Coding Level of Care Code Acute Code for Garett Fwcornell Diagnoses Atrial fibrillation with rapid ventricular response I48.91
--- NOTE | 2023-09-28 12:37 | ECG_ITS ---
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 Measurements Intervals [place] Rate: 74 P: 0 ID: 0 QRS: -72 QRSD: 93 T: -81 QT: 372 QTc: 413 Interpretive Statements Significant baseline artifact Heart rate appears regular. This appears normal sinus rhythm Compared to last EKG on 09/26/2023, atrial fibrillation no longer present. Electronically Signed On 09-28-2023 14:22:48 SPINNING MULE TENDER by Pat Antonio M.D. [id number] f
--- NOTE | 2023-09-28 12:40 | PC.NURSE ---
Patient start to complain of feeling hot and left shoulder pain. Patient very restless in her bed. Provider is notified and EKG is done. She said that she is going to order labs on her and a new medication.
--- NOTE | 2023-09-28 13:02 | PM.PN ---
Subjective Subjective: Seen this morning. Patient is in RVR again. Heart rate 150s. Cardizem drip restarted. When seen she denies any chest pain, shortness of breath. Vitals/I&O/Wt Last Vital Signs Temp 97.6 F 09/28/23 08:00 Pulse 153 H 09/28/23 08:00 Resp 19 H 09/28/23 08:00 BP 134/87 09/28/23 08:00 Pulse Ox 94 09/28/23 08:00 O2 Del Method Nasal Cannula 09/28/23 08:00 O2 Flow Rate 2 09/27/23 21:47 09/27/23 09/28/23 09/28/23 22:59 06:59 14:59 Intake Total 390 / 866 222 / 1088 360 / 360 Balance 390 / 866 222 / 1088 360 / 360 Weight last 48 hrs Weight 71.894 kg Weight 72.665 kg Weight 74.344 kg Weight 74.389 kg Physical Exam Narrative: No acute distress, sitting up in bed with family present at bedside Lungs clear to auscultation auscultation no wheezes no rhonchi RVR with heart rate in 150s. Cardizem drip is being started. On 2 L nasal cannula. No lower extremity edema present. Abdomen soft Data 09/28/23 04:00 09/28/23 04:00 Micro: Microbiology 09/26/23 22:46 Urine Culture - Final Urine,Clean Catch A&P Assessment and plan (1) Atrial fibrillation with rapid ventricular response: (2) Chest discomfort: (3) Recurrent vomiting: (4) Congestive heart failure: (5) Diastolic heart failure: Plan Acute on chronic A-fib with RVR RVR Left atrial diameter is greater than 4 cm Preserved this fraction Patient is symptomatic with RVR Titrate off Cardizem drip Patient may need antiarrhythmic agent, Normal TSH Pulm hypertension present Continue patient on Cardizem 60 every 8 hours at this time. Consult cardiology. Titrate off Cardizem drip and switch to oral once able. Discussed with cardiology. May start on Ativan 0.25 twice daily as needed Patient requires monitoring on cardiac stepdown unit since she is on Cardizem drip which is a high risk medication. Recurrent nausea vomiting - resolved CT scan of abdomen pelvis without contrast reviewed. No recent fever Abdomen is soft Chest pain Possibly secondary to related to A-fib RVR however chest pain-free at this time. Symptoms improved with rate control Monitor troponins No need to repeat echo Acute on diastolic congestive heart failure Patient is status post Lasix 20 IV x[address]. We will place on Lasix 20 p.o. daily at this time. DNR/DNI Cardiac diet Attestations Medical Necessity Statement*: Requires inpatient stay for management of A-fib with RVR. Patient is back on Cardizem drip at this point Diagnoses Atrial fibrillation with rapid ventricular response I48.91 Chest discomfort R07.89 Recurrent vomiting R11.10 Congestive heart failure I50.9 Diastolic heart failure I50.30
[2023-09-28 14:18] LABS: Troponin(5th) Baseline 41 ng/L (0-10)
--- NOTE | 2023-09-28 15:22 | ECG_ITS ---
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 Measurements Intervals [place] Rate: 75 P: 256 SD: 161 QRS: 58 QRSD: 98 T: 80 QT: 353 QTc: 394 Interpretive Statements Atrial tachycardia Compared to ECG 09/28/2023 12:32:03 No significant changes Electronically Signed On 09-30-2023 13:41:09 LITHOGRAPH PRESS OPERATOR TINWARE by Pat Antonio M.D. [id number]
[2023-09-28 16:12] LABS: Troponin 5 2HR 39.51 ng/L (0-10); Troponin 5 2HR Delta -1.49 ABS# (0-10)
--- NOTE | 2023-09-28 19:06 | ECG_ITS ---
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 Measurements Intervals [place] Rate: 73 P: 257 MI: 155 QRS: 55 QRSD: 97 T: 84 QT: 369 QTc: 408 Interpretive Statements SINUS RHYTHM Compared to ECG 09/28/2023 15:22:10 No significant changes Normal EKG Electronically Signed On 09-30-2023 13:38:20 VOCATIONAL TECHNICAL EDUCATION TEACHER by Pat Antonio M.D. [id number]
[2023-09-28 20:22] LABS: Troponin 5 6HR 36.94 ng/L (0-10)
[2023-09-28 20:35] LABS: Troponin 5 6HR Delta -4.06 ng/L (0-12)
[2023-09-28] MEDS: gabapentin 100 mg Capsule 200 MG PO (20:57)
[2023-09-28] MEDS: HYDROcodone-acetaminophen 5-325 mg Tablet 1 TAB PO (20:57)
[2023-09-29] VITALS (7 sets, daily range): BP systolic 130–171; BP diastolic 75–93; PULSE 68–88; RESP 15–23; TEMP 36.3–36.8; O2SAT 96–99
[2023-09-29] MEDS: LORazepam 0.5 mg Tablet 0.25 MG PO (04:00)
[2023-09-29] MEDS: FUROsemide 20 mg Tablet PO (07:44)
[2023-09-29] MEDS: dilTIAZem 60 mg Tablet PO (07:44)
[2023-09-29] MEDS: rivaroxaban 10 mg Tablet 20 MG PO (10:17)
[2023-09-29] MEDS: potassium chloride ER 10 mEq Tablet 20 MEQ PO (10:18)
[2023-09-29] MEDS: magnesium oxide 400 mg tablet PO (10:18)
--- NOTE | 2023-09-29 11:10 | PC.CHAP ---
Pastoral Care Encounter/Spiritual Assessment Type of Contact [] Declined wet room worker visit [] Patient/Family/Request visit [] Outpatient visit [] Follow-up visit [] Physician referral [] Code/Alert [x] Routine visit [] Staff referral [] Actively dying [] Patient sleeping [x] Family support [] [] Out of room [] Palliative care [] [] Receiving care in room [] Pre-surgical visit [] Trauma [] Long length of stay [] ICU visit [] Other: Relational/Emotional Strength [] Patient feels connected with others/family/visitors/staff [] Distress [] Loneliness/isolation [] Abandonment Spirituality of Patient [] Person of Sarah [] Attends Jain of their Sarah [] Believes in Prayer [] Reads Bible or Caodaism materials [] There are Spiritual issues to be addressed Access Consultant Interventions [x] Prayer [x] Active listening [] Non-anxious presence [] Spiritual/emotional support [] Crisis/trauma care [] Spiritual counseling [] Bereavement support [] Provided bereavement packet [] Provided Bible/devotional materials [] Provided toy/stuffed animal, coloring book to patient or family member [] Provided Communion [] Anointing/[place] [] Salvation [] Completed spiritual assessment [] Other: Impact on Illness or Injury [] Angry [] Fearful [] Anxious [] Often cries [] Exhaustion [] Unable to work [] Unable to attend jain [] Unable to walk/stand [] Unable to read [] Unable to drive [] Unable to eat/drink [] Unable to sleep [] Unable to be with family [] Patient intubated [] Other: Summary Time spent with patient 10 min
--- NOTE | 2023-09-29 14:20 | PM.DCS ---
Discharge Providers Date of Admission: 09/28/23 10:05 Date of Discharge: September 29, 2023 Attending Provider at Admission: Emma Sandoval MD Attending Provider at Discharge: Maria Guadalupe Campbell MD Primary Care Provider: June Merchant Diagnoses at Discharge Discharge Diagnosis (1) Atrial fibrillation with rapid ventricular response: Status: Resolved (2) Chest discomfort: Status: Resolved (3) Recurrent vomiting: Status: Resolved (4) Congestive heart failure: Status: Acute (5) Diastolic heart failure: Status: Acute Reason for Visit Reason for Visit: Cp Hospital Course Hospital Course Patient presented in A-fib with RVR. This is her third admission. He says she had nausea vomiting prior to admission. Has not vomited during hospital stay. Says she is under a lot of stress due to family dynamics. Cardizem drip was used initially however she was then titrated back down to her home dose of Cardizem.She stated she had already tried metoprolol in the past but it did not work out for her. Due to it being patient's third admission cardiology was consulted. They recommended to keep patient on Cardizem for now however if she continues to stay in RVR to try metoprolol. However she was placed on Ativan 0.25 twice daily for anxiety which helped control her rate and symptoms. She was discharged home with no medication changes and given a prescription for Ativan and to follow-up with her primary care doctor at discharge. Lastly, during hospital stay patient was also found to have mild pulmonary edema secondary to uncontrolled heart rate. She was diuresed with Lasix 20 daily and placed on Lasix 20 p.o. daily at discharge. Event monitor ordered at discharge and to follow up with Dr. Perkins. Patient on board with the plan. Physical Exam Narrative: No acute distress, sitting up in bed with family present at bedside Lungs clear to auscultation auscultation no wheezes no rhonchi RVR with heart rate in 150s. Cardizem drip is being started. On 2 L nasal cannula. No lower extremity edema present. Abdomen soft Discharge Data Studies Completed and Pending Completed Studies During Hospitalization Category Date Time Status CT abdomen pelvis wo con [id number] Routine Cat Scan 09/26/23 18:54 Completed XR chest 1V [id number] Stat Exams 09/26/23 16:14 Completed Radiology Impressions Chest X-Ray 09/26/23 16:14 IMPRESSION: No acute cardiopulmonary disease. Abdomen/Pelvis CT 09/26/23 18:54 IMPRESSION: 1. No acute abnormality identified to explain patient's nausea and vomiting. In particular, there are no findings of bowel obstruction or urolithiasis. There is extensive diverticulosis throughout the colon but no evidence of acute diverticulitis. Previously seen pelvic free fluid has almost completely resolved. 2. Stable benign pattern left adrenal nodule. 3. Probable cholelithiasis could be further investigated with ultrasound. COMMENTS: 1. Consistent with the [employer]'s Incidental Findings Committee white paper (J Am Mckay Radiol 2017): For any incidental adrenal lesion greater than or equal to 1 cm but less than or equal to 4 cm classified in this report as benign, likely benign, or containing fat (including classification as an adenoma or myelolipoma), no follow-up imaging is recommended per consensus recommendations based on imaging criteria. Further lab evaluation could be pursued if warranted based on clinical findings. 2. For patients with an IVC filter, recommend assessment for a management plan for the patient's IVC filter. If there is no established management plan, recommend referral to an interventional clinician on a nonemergent basis for evaluation. 3. Consistent with the [place] [employer]'s Incidental Findings Committee white paper (J Am Mckay Radiol 2018): Any incidental renal lesion less than 1 cm or classified as too small to characterize, or any incidental cystic renal lesion characterized as simple-appearing, is likely benign. No follow-up imaging is recommended for these lesions per consensus recommendations based on imaging criteria. Laboratory Results WBC 5.46 10^3/uL (3.29-11.43) 09/28/23 04:00 RBC 4.32 10^6/uL (3.85-5.65) 09/28/23 04:00 Hgb 13.20 g/dL (11.27-16.99) 09/28/23 04:00 Hct 43.8 % (36-47) 09/28/23 04:00 MCV 101.4 fl (85-98) H 09/28/23 04:00 MCH 30.6 pg (27-33) 09/28/23 04:00 MCHC 30.1 g/dL (30-55) 09/28/23 04:00 RDW 12.9 % (12.1-15.1) 09/28/23 04:00 Plt Count 131 10^3/cmm (157-399) L 09/28/23 04:00 MPV 10.2 fL (7.4-10.4) 09/28/23 04:00 Neut % (Auto) 57.2 % 09/28/23 04:00 Lymph % (Auto) 25.5 % 09/28/23 04:00 [place] % (Auto) 14.1 % 09/28/23 04:00 Eos % (Auto) 2.6 % 09/28/23 04:00 Baso % (Auto) 0.4 % 09/28/23 04:00 Neut # (Auto) 3.13 10^3/uL (1.8-7.7) 09/28/23 04:00 Lymph # (Auto) 1.4 10^3/uL (0.8-4.8) 09/28/23 04:00 [place] # (Auto) 0.8 10^3/uL (0.2-0.9) 09/28/23 04:00 Eos # (Auto) 0.1 10^3/uL (0.0-0.8) 09/28/23 04:00 Baso # (Auto) 0.0 10^3/uL (0.0-0.1) 09/28/23 04:00 Nucleated RBC % (auto) 0 % 09/28/23 04:00 Nucleated RBCs # 0.0 /100WBC 09/28/23 04:00 Sodium 138 mmol/L (136-145) 09/28/23 04:00 Potassium 4.1 mmol/L (3.5-5.1) 09/28/23 04:00 Chloride 102 mmol/L (98-107) 09/28/23 04:00 Carbon Dioxide 26 mmol/L (22-29) 09/28/23 04:00 Anion Gap 14.1 (5-19) 09/28/23 04:00 BUN 20 mg/dL (8-23) 09/28/23 04:00 Creatinine 0.7 mg/dL (0.5-0.9) 09/28/23 04:00 GFR Calculation Not Reportable 09/28/23 04:00 Glucose 97 mg/dL (65-115) 09/28/23 04:00 Calculated Osmolality 289 mOsm/kg (285-295) 09/28/23 04:00 Calcium 8.7 mg/dL (8.5-10.5) 09/28/23 04:00 Magnesium 1.8 mg/dL (1.7-2.3) 09/28/23 04:00 Total Bilirubin 0.7 mg/dL (0.15-1.2) 09/26/23 16:52 Total Bilirubin Cancelled 09/26/23 16:52 AST 30 U/L (0-32) 09/26/23 16:52 AST Cancelled 09/26/23 16:52 ALT 20 U/L (0-33) 09/26/23 16:52 ALT Cancelled 09/26/23 16:52 Alkaline Phosphatase 186 U/L (35-105) H 09/26/23 16:52 Alkaline Phosphatase Cancelled 09/26/23 16:52 Troponin T Baseline 41 ng/L (0-10) H 09/28/23 13:43 Troponin T 120 Minute 39.51 ng/L (0-10) H 09/28/23 15:45 Delta Troponin T -1.49 ABS# (0-10) L 09/28/23 15:45 Troponin T Hi Sens 6Hr 36.94 ng/L (0-10) H 09/28/23 19:52 Troponin T Hi Sens 6Hr Delta -4.06 ng/L (0-12) L 09/28/23 19:52 NT-Pro-B Natriuret Pep 1994 pg/mL (0-450) H 09/26/23 16:52 Total Protein 6.6 g/dL (6.6-8.7) 09/26/23 16:52 Total Protein Cancelled 09/26/23 16:52 Albumin 3.8 g/dL (3.5-5.2) 09/26/23 16:52 Albumin Cancelled 09/26/23 16:52 Globulin 2.8 g/dL (1.3-4.6) 09/26/23 16:52 Globulin Cancelled 09/26/23 16:52 Urine Color Yellow (Yellow) 09/26/23 22:46 Urine Appearance Clear (CLEAR) 09/26/23 22:46 Urine pH 5 (5-7) 09/26/23 22:46 Ur Specific [place] 1.020 (1.005-1.030) 09/26/23 22:46 Urine Protein Trace (Negative) 09/26/23 22:46 Urine Glucose (UA) Norm (Normal) 09/26/23 22:46 Urine Ketones 1+ (Negative) H 09/26/23 22:46 Urine Blood 2+ (Negative) H 09/26/23 22:46 Urine Nitrate Negative (Negative) 09/26/23 22:46 Urine Bilirubin Neg (Negative) 09/26/23 22:46 Urine Urobilinogen Neg mg/dL (Negative) 09/26/23 22:46 Ur Leukocyte Esterase 1+ (Negative) H 09/26/23 22:46 Urine RBC 0-4 /hpf (0-2) H 09/26/23 22:46 Urine WBC 0-4 /hpf (0-5) H 09/26/23 22:46 Ur Squamous Epith Cells 5-10 /hpf (0-5) H 09/26/23 22:46 Amorphous Sediment 2+ /hpf 09/26/23 22:46 Urine Bacteria Trace /hpf (NONE) 09/26/23 22:46 Ethyl Alcohol < 10 mg/dL (0-10) 09/26/23 16:52 Vitals Last Vital Signs Temp 98.3 F 09/29/23 11:56 Pulse 78 09/29/23 11:56 Resp 23 H 09/29/23 11:56 BP 134/76 09/29/23 11:56 Pulse Ox 96 09/29/23 11:56 O2 Del Method Nasal Cannula 09/29/23 11:56 O2 Flow Rate 2 09/29/23 07:36 Discharge Plan Discharge Patient Disposition: Home Condition: Stable Prescriptions: New lorazepam 0.5 mg Tablet 0.25 mg PO BID PRN (Reason: Anxiety) Qty: 8 0RF furosemide 20 mg Tablet 20 mg PO DAILY@0800 Qty: 30 0RF Continued ergocalciferol (vitamin D2) 1,250 mcg (50,000 unit) capsule 1,250 mcg PO Q7D Rx Instructions: (ON Wednesday) clobetasol 0.05 % gel 1 applic topical DAILY magnesium oxide 250 mg magnesium tablet 250 mg PO DAILY DILT-XR 180 mg capsule,ext.rel 24h degradable 180 mg PO DAILY Qty: 90 3RF Xarelto 20 mg tablet 20 mg PO DAILY Qty: 90 3RF Rx Instructions: 340B nitroglycerin 0.4 mg tablet, sublingual 0.4 mg sublingual Q5M PRN (Reason: chest pain) Qty: 25 0RF Rx Instructions: do not exceed 3 doses per episode atorvastatin 40 mg Tablet 40 mg PO BEDTIME Qty: 90 0RF ascorbic acid (vitamin C) [Vitamin C] 500 mg Tablet 1,000 mg PO QAM Zinc (with A and C) Lozenges Lozenge 1 gilbert PO DAILY hydrocodone-acetaminophen 5-325 mg tablet 1 tab PO Q8H PRN (Reason: pain) gabapentin 100 mg capsule 200 mg PO BEDTIME pantoprazole 40 mg Tablet,Delayed Release (Dr/Ec) 40 mg PO BID Qty: 60 0RF Changed potassium chloride 20 mEq tablet extended release 10 meq PO DAILY Qty: 30 0RF Discharge Orders: Discharge Order (Routine); Ordered 09/29/23 Ordered By: Maria Guadalupe Campbell Other Ambulatory Orders: MCT/Event Monitor 21 Days (Routine) Timeframe: 20231004 Facility: [facility] - Location: Radiology Ordered By: Maria Guadalupe Campbell Referrals: Glenna Coelho MD [Physician] - 1 week (Follow up 10/04/2023 @ 2:00PM) June Merchant [Primary Care Provider] - 4-7 days (Follow up 10/04/2023 @ 11:30AM) Discharge Diet: Cardiac Discharge Activity: Resume usual activity and Oxygen as instructed Patient Instructions: Heart Failure (DC), A-fib (Atrial Fibrillation) (DC), Chest Pain (DC), Opioid Safety Discharge Attestations Time Spent in Discharge Care*: greater than 30 min Quality Metrics Clinical Quality Measures [ No reported AMI, CVA or VTE this stay] Coding Level of Care Code Acute Code for Chg Fwd Diagnoses Atrial fibrillation with rapid ventricular response I48.91 Chest discomfort R07.89 Recurrent vomiting R11.10 Congestive heart failure I50.9 Diastolic heart failure I50.30
== END 2023-09-29 15:08 | disposition home or self-care (01) | DRG 308 ==
LOC: ER 18:36 → CSU 18:49
PROVIDERS: Physician Assistant; Admitting Provider Internal Medicine; Emergency Provider Internal Medicine; PCP Nurse Practitioner Family; Visit Provider Internal Medicine
DX: I48.0 Paroxysmal atrial fibrillation (principal); I50.31 Acute diastolic (congestive) heart failure; I25.110 Atherosclerotic heart disease of native coronary artery with unstable angina pectoris; J44.9 Chronic obstructive pulmonary disease, unspecified; Z99.81 Dependence on supplemental oxygen; F41.8 Other specified anxiety disorders; Z86.718 Personal history of other venous thrombosis and embolism; Z86.711 Personal history of pulmonary embolism; E78.5 Hyperlipidemia, unspecified; G47.33 Obstructive sleep apnea (adult) (pediatric); I27.20 Pulmonary hypertension, unspecified; G25.81 Restless legs syndrome; Z87.891 Personal history of nicotine dependence; Z66 Do not resuscitate; I11.0 Hypertensive heart disease with heart failure
CPT/HCPCS: 12345; 36415; 71045; 74176; 80048; 80053; 80307; 81001; 83735; 83880; 84484; 85025; 87086; 93005; 93010; 94640; 96365; 96375; 96376; 99285; A9270; G0378; J1940; J2405; J3490

== ENCOUNTER 2023-10-30 21:50 | Emergency (ER) | payer MEDICARE, SELFPAY ==
[2023-10-30 21:51] VITALS: BP 140/70; PULSE 86; RESP 22; TEMP 36.6; O2SAT 93; BMI 29.9
--- NOTE | 2023-10-30 21:56 | ECG_ITS ---
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 Measurements Intervals [place] Rate: 83 P: 0 ND: 0 QRS: 59 QRSD: 98 T: 72 QT: 349 QTc: 410 Interpretive Statements ATRIAL FIBRILLATION Compared to ECG 09/28/2023 19:14:36 Sinus rhythm no longer present Electronically Signed On 10-31-2023 9:58:[address] by Brayan Cotto M.D. [email or web address] urbana [email or web address] [id number]
[2023-10-30 21:59] VITALS: BP 143/74; PULSE 89; RESP 26; O2SAT 97
--- NOTE | 2023-10-30 22:03 | XRR_ITS ---
PROCEDURE INFORMATION: Exam: XR Chest Exam date and time: 10/30/2023 10:18 PM Age: 88 years old Clinical indication: Chest pressure; Patient HX: Chest pain; Fever; Cough; Hypotension; Sepsis TECHNIQUE: Imaging protocol: Radiologic exam of the chest. Views: 1 view. COMPARISON: CR (CHEST, ) 09/26/2023 4:23 PM FINDINGS: Tubes, catheters and devices: External cardiac monitoring device. Lungs: Lung base atelectasis or scarring. Diffuse interstitial scarring or edema. Lung base findings have mildly progressed. Pleural spaces: No pneumothorax. Minute bilateral effusions are possible. Heart/Mediastinum: The heart is large. Diffuse vascular calcification. 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 Thoracolumbar fusion. XR/XR chest 1V portable [id number] IMPRESSION: Compared with about 5 weeks ago, lung base hazy opacities and possible minute effusions have mildly increased. No other change.
[2023-10-30 22:19] LABS: Basophils % 0.3 %; Eosinophils # 0.1 10^3/uL (0.0-0.8); Eosinophils % 0.8 %; Hematocrit 41.1 % (36-47); Lymphocytes # 1.2 10^3/uL (0.8-4.8); Mean Corpuscular HGB Conc 30.4 g/dL (30-55); Mean Corpuscular Hemoglobin 31.1 pg (27-33); Mean Corpuscular Volume 102.2 fl (85-98); Mean Platelet Volume 9.1 fL (7.4-10.4); Monocytes # 0.7 10^3/uL (0.2-0.9); Monocytes % 10.8 %; Neutrophils # 4.59 10^3/uL (1.8-7.7); Neutrophils % 69.9 %; Nucleated Red Blood Cells % 0 %; Platelet Count 175 10^3/cmm (157-399); Red Blood Count 4.02 10^6/uL (3.85-5.65); Red Cell Distribution Width 13.5 % (12.1-15.1); White Blood Count 6.56 10^3/uL (3.29-11.43)
[2023-10-30 22:41] LABS: Troponin(5th) Baseline 42 ng/L (0-10)
[2023-10-30] MEDS: ondansetron 2 mg/ML SDV 2 mL 4 MG IVP (22:46)
[2023-10-30 22:48] VITALS: RESP 18; O2SAT 92
[2023-10-30] MEDS: fentaNYL 50 mcg/mL INJ 2mL 25 MCG IVP (22:48)
[2023-10-30] MEDS: ipratropium-albuterol 3 mL Neb INHALATION (22:51)
[2023-10-30] MEDS: methylPREDNISolone sod succ 125 mg/2 mL INJ IVP (22:51)
[2023-10-30 22:52] VITALS: PULSE 73; RESP 16; O2SAT 90
[2023-10-30] MEDS: FUROsemide 10 mg/mL SDV 10mL 80 MG IVP (22:54)
[2023-10-30 22:57] VITALS: BP 152/66; PULSE 74; PULSE 77; O2SAT 91
[2023-10-30 23:08] LABS: ABG PCO2 57.9 mmHg (35-45); ABG PH Result 7.36 (7.35-7.45); Arterial Blood Gas Hematocrit 37.2 % (37-47); Base Excess ABG 5.7 mmol/L (-2.0-2.0); Blood Gas Allen Test Pos; Blood Gas Operator Identificat CAK; Blood Gas Sample Site Radial, left; Blood Gas Sample Type Arterial; HCO3 ABG 32.6 mmol/L (22-26); Oxygen Device NC; PO2 ABG 53.8 mmHg (80.0-100.0); PO2 FiO2 Ratio Arterial Blood 0
[2023-10-30 23:09] LABS: Influenza A by IFA negative (Negative); Influenza B by IFA negative (Negative); SARS Covid-2 Antigen negative (Negative)
--- NOTE | 2023-10-30 23:22 | ED_ITS ---
HPI - Chest Pain 2 General: Chief Complaint: Chest Pain Stated Complaint: CP Time Seen by Provider: 10/30/23 21:57 History of Present Illness: 88-year-old female with a history of [employer] D and atrial fibrillation. She presents with chest discomfort. It is more of a pleuritic discomfort. Worse with movement, worse with deep inspiration. She has been coughing. Some mild sputum production. She felt like she had a temperature today. She took her temperature this morning, and it was 101. Associated symptoms: Reports dyspnea, fever(s) and palpitations; Deny abdominal pain or nausea Review of Systems 2 Const: Reports: fever(s); Denies: chills ENMT: Denies: throat pain Card: Reports: chest pain and palpitations Resp: Reports: dyspnea and productive cough GI: Denies: abdominal pain or nausea PFSH ED 2 PFSH: Medical History Chronic respiratory failure with hypoxia and hypercapnia Acute on chronic respiratory failure with hypoxia and hypercapnia Hallucinations, unspecified Elevated troponin Medication side effects present Chest pain Acute encephalopathy Dysphagia Pulmonary hypertension Dysphagia Melanotic stools Acute blood loss anemia (ABLA) Chest pain Dyspnea or other respiratory complaints Post-op pain Congestive heart failure Fusion of spine Atrial fibrillation Anemia Bradycardia Depression Coronary artery disease Obstructive sleep apnea History of cancer of vulva DVT (deep venous thrombosis) Pulmonary embolism Lumbar radiculopathy Hypertension Hyperlipidemia COPD (chronic obstructive pulmonary disease) Uses trilogy at night with 2 L. Typically not on oxygen during day. Restless leg syndrome Chronic back pain Depression with anxiety History of pulmonary embolism Hx of blood clots Surgical History History of hip replacement History of tonsillectomy History of knee replacement History of coronary artery stent placement Presence of vena cava filter History of back surgery H/O: hysterectomy Family History Other Cancer Chronic back pain Social History Smoking and tobacco/nicotine status: former use of tobacco/nicotine Alcohol intake: current Alcohol intake frequency: few times a month Caregiver/support person: Yes Lives independently: Yes Household members: spouse Housing: House Physical Exam 2 Const: GENERAL APPEARANCE: cooperative, anxious and frail appearing (Mildly) HENMT: COMMON NORMALS: normocephalic, atraumatic and Normal external nose present HEAD & SCALP: normocephalic and atraumatic FACE & SINUS: normal facial exam and face symmetric NOSE: Normal external nose present Eye: COMMON NORMALS: Equal, round and reactive pupils present and EOMs intact bilaterally PUPIL: Yes Equal, round and reactive pupils present Neck/C-Spine: GENERAL: Yes trachea midline Chest: CHEST: Yes Symmetrical chest wall rise Resp: EFFORT & INSPECTION: Yes tachypneic AUSCULTATION: rales and wheezes Cardio: RATE: tachycardic RHYTHM: abnormal rhythm irregularly irregular GI: COMMON NORMALS: Normal to inspection, nondistended, normoactive bowel sounds present Extremity: GENERAL: Yes edema (2+) Neuro: NOBLE COMA SCALE: document GCS findings [place] coma scale eye opening: Spontaneous [place] coma scale verbal response: Orientated [place] coma scale motor response: Obey commands [place] coma scale total score: 15 S ENSORY EXAM: Yes extremities (intact) Psych: COMMON NORMALS: speech normal SPEECH: Yes normal speech Skin: COMMON NORMALS: no rashes or lesions noted GENERAL SKIN EXAM: no rashes or lesions noted Course 2 Vital Signs: Vital signs: Vital Signs Temperature 98 F 10/30/23 21:51 Pulse Rate 92 10/31/23 00:13 Respiratory Rate 16 10/30/23 22:52 Blood Pressure 132/84 10/31/23 00:13 Pulse Oximetry 97 10/31/23 00:13 Oxygen Delivery Me thod Nasal Cannula 10/31/23 00:13 Oxygen Flow Rate 2 10/31/23 00:13 MDM - Chest Pain Medical Decision Making 88-year-old female with atrial fibrillation and heart failure. She presents with pleuritic chest discomfort and shortness of breath. She is wheezing on exam, with peripheral edema and some rales. She is given Lasix, with some diuresis here. She is given Solu-Medrol and DuoNeb treatments with improvement/resolution of her chest discomfort. She has oxygen at home. She wears trilogy at night. Blood pressure 132/84, respirations are down to 16. Pulse has been below 100. Saturations are 98% on 2 L. Her symptoms are resolved. She wishes to go home. CBC is normal. BMP is not remarkable. Her first troponin is essentially at her baseline. BNP is mildly elevated at 1500. Minimal pulmonary edema on chest x- ray. She swabs negative for flu and COVID. With resolution of her symptoms, baseline troponin despite chest discomfort for 2 to 3 days, no pneumonia on chest x-ray and being afebrile here, she will be allowed home as she wishes. Warning signs for return given. She will be treated with an increased dose of Lasix, Medrol, albuterol. Close outpatient follow-up. Lab Data 10/30/23 22:13 10/30/23 22:13 Radiology Impressions Chest X-Ray 10/30/23 22:03 IMPRESSION: Compared with about 5 weeks ago, lung base hazy opacities and possible minute effusions have mildly increased. No other change. Laboratory Results WBC 6.56 10^3/uL (3.29-11.43) 10/30/23 22: RBC 4.02 10^6/uL (3.85-5.65) 10/30/23 22: Hgb 12.50 g/dL (11.27-16.99) 10/30/23 22:13 Hct 41.1 % (36-47) 10/30/23 22: MCV 102.2 fl (85-98) H 10/30/23 22: MCH 31.1 pg (27-33) 10/30/23 22: MCHC 30.4 g/dL (30-55) 10/30/23 22:13 RDW 13.5 % (12.1-15.1) 10/30/23 22:13 Plt Count 175 10^3/cmm (157-399) 10/30/23 22:13 MPV 9.1 fL (7.4-10.4) 10/30/23 22:13 Neut % (Auto) 69.9 % 10/30/23 22:13 Lymph % (Auto) 18.0 % 10/30/23 22:13 [place] % (Auto) 10.8 % 10/30/23 22:13 Eos % (Auto) 0.8 % 10/30/23 22:13 Baso % (Auto) 0.3 % 10/30/23 22: Neut # (Auto) 4.59 10^3/uL (1.8-7.7) 10/30/23 22:13 Lymph # (Auto) 1.2 10^3/uL (0.8-4.8) 10/30/23 22:13 [place] # (Auto) 0.7 10^3/uL (0.2-0.9) 10/30/23 22:13 Eos # (Auto) 0.1 10^3/uL (0.0-0.8) 10/30/23 22:13 Baso # (Auto) 0.0 10^3/uL (0.0-0.1) 10/30/23 22:13 Nucleated RBC % (auto) 0 % 10/30/23 22:13 Nucleated RBCs # 0.0 /100WBC 10/30/23 22:13 Specimen Type Arterial 10/30/23 22:57 Sample Site Radial, left 10/30/23 22:57 ABG pH 7.36 (7.35-7.45) 10/30/23 22:57 ABG pCO2 57.9 mmHg (35-45) H 10/30/23 22:57 ABG pO2 53.8 mmHg (80.0-100.0) L 10/30/23 22:57 ABG PO2/FiO2 Ratio 0 10/30/23 22:57 ABG HCO3 32.6 mmol/L (22-26) H 10/30/23 22:57 ABG Base Excess 5.7 mmol/L (-2.0-2.0) H 10/30/23 22:57 Seng Test Pos 10/30/23 22:57 Hematocrit 37.2 % (37-47) 10/30/23 22:57 O2 Delivery Device Nc 10/30/23 22:57 O2 Liters/Min 2.0 % 10/30/23 22:57 FiO2 28.0 % 10/30/23 22:57 Lobby Concierge ID Cak 10/30/23 22:57 Sodium 141 mmol/L (136-145) 10/30/23 22:13 Potassium 4.7 mmol/L (3.5-5.1) 10/30/23 22:13 Chloride 102 mmol/L (98-107) 10/30/23 22:13 Carbon Dioxide 30 mmol/L (22-29) H 10/30/23 22:13 Anion Gap 13.7 (5-19) 10/30/23 22:13 BUN 20 mg/dL (8-23) 10/30/23 22:13 Creatinine 0.8 mg/dL (0.5-0.9) 10/30/23 22:13 GFR Calculation Not Reportable 10/30/23 22:13 Glucose 125 mg/dL (65-115) H 10/30/23 22:13 Calculated Osmolality 296 mOsm/kg (285-295) H 10/30/23 22:13 Calcium 9.0 mg/dL (8.5-10.5) 10/30/23 22:13 Magnesium 2.0 mg/dL (1.7-2.3) 10/30/23 22:13 Total Bilirubin 0.4 mg/dL (0.15-1.2) 10/30/23 22:13 AST 23 U/L (0-32) 10/30/23 22:13 ALT 15 U/L (0-33) 10/30/23 22:13 Alkaline Phosphatase 193 U/L (35-105) H 10/30/23 22:13 Troponin T Baseline 42 ng/L (0-10) H 10/30/23 22:13 NT-Pro-B Natriuret Pep 1571 pg/mL (0-450) H 10/30/23 22:13 Total Protein 5.8 g/dL (6.6-8.7) L 10/30/23 22:13 Albumin 3.8 g/dL (3.5-5.2) 10/30/23 22:13 Globulin 2.0 g/dL (1.3-4.6) 10/30/23 22:13 Lipase 29 U/L (13-60) 10/30/23 22:13 Influenza Type A Ag negative (Negative) 10/30/23 22:45 Influenza Type B Ag negative (Negative) 10/30/23 22:45 SARS-CoV-2 Ag (Rapid) negative (Negative) 10/30/23 22:45 All radiology interpretation(s) finalized by discharge Discharge Plan Discharge Patient Disposition: Home Clinical Impression: Atypical chest pain, Atrial fibrillation, Pulmonary edema Condition: Stable Prescriptions: New Medrol (Reynaldo) 4 mg tablets,dose pack See Rx Instructions .ROUTE .COMPLEX Qty: 21 0RF Rx Instructions: orally per package directions albuterol sulfate 90 mcg/actuation HFA aerosol inhaler 2 inh INHALATION Q4H PRN (Reason: shortness of breath or wheezing) Qty: 6.7 1RF No Action ergocalciferol (vitamin D2) 1,250 mcg (50,000 unit) capsule 1,250 mcg PO Q7D Rx Instructions: (ON Wednesday) clobetasol 0.05 % gel 1 applic topical DAILY magnesium oxide 250 mg magnesium tablet 250 mg PO DAILY DILT-XR 180 mg capsule,ext.rel 24h degradable 180 mg PO DAILY Qty: 90 3RF Xarelto 20 mg tablet 20 mg PO DAILY Qty: 90 3RF Rx Instructions: 340B nitroglycerin 0.4 mg tablet, sublingual 0.4 mg sublingual Q5M PRN (Reason: chest pain) Qty: 25 0RF Rx Instructions: do not exceed 3 doses per episode atorvastatin 40 mg Tablet 40 mg PO BEDTIME Qty: 90 0RF ascorbic acid (vitamin C) [Vitamin C] 500 mg Tablet 1,000 mg PO QAM Zinc (with A and C) Lozenges Lozenge 1 gilbert PO DAILY hydrocodone-acetaminophen 5-325 mg tablet 1 tab PO Q8H PRN (Reason: pain) lorazepam 0.5 mg Tablet 0.25 mg PO BID PRN (Reason: Anxiety) Qty: 8 0RF furosemide 20 mg Tablet 20 mg PO DAILY@0800 Qty: 30 0RF potassium chloride 20 mEq tablet extended release 10 meq PO DAILY Qty: 30 0RF gabapentin 100 mg capsule 200 mg PO BEDTIME pantoprazole 40 mg Tablet,Delayed Release (Dr/Ec) 40 mg PO BID Qty: 60 0RF Discharge Orders: Discharge ED (Routine); Ordered 10/31/23 Ordered By: Andrea Laurent Referrals: June Merchant [Primary Care Provider] - Patient Instructions: Pulmonary Edema (ED) Activity Restrictions/Additional Instructions: Increase your furosemide dosage to 40 mg daily for the next 3 days, then back to normal. Other medications as prescribed. Use the albuterol inhaler every 4 hours while awake for the first 48 hours, then as needed to follow. Return for fever, worsening shortness of breath, worsening chest pain despite treatment, any other concerning symptoms. See your doctor next week. Coding Level of Care Code ED Clerk Cashier for Garett Leija
[2023-10-30 23:41] LABS: Alanine Aminotransferase 15 U/L (0-33); Albumin Level 3.8 g/dL (3.5-5.2); Alkaline Phosphatase 193 U/L (35-105); Aspartate Amino Transferase 23 U/L (0-32); Blood Urea Nitrogen 20 mg/dL (8-23); Carbon Dioxide 30 mmol/L (22-29); Glucose 125 mg/dL (65-115); Lipase 29 U/L (13-60); NT Pro B Type Natriuretic Pept 1571 pg/mL (0-450); Total Bilirubin 0.4 mg/dL (0.15-1.2); Total Protein 5.8 g/dL (6.6-8.7)
[2023-10-30 23:59] LABS: Anion Gap 13.7 (5-19); Chloride 102 mmol/L (98-107); Osmolality Calculated 296 mOsm/kg (285-295); Potassium 4.7 mmol/L (3.5-5.1); Sodium 141 mmol/L (136-145)
--- NOTE | 2023-10-31 00:03 | ECG_ITS ---
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 Measurements Intervals [place] Rate: 82 P: 0 [place]: 0 QRS: 68 QRSD: 94 T: 90 QT: 364 QTc: 425 Interpretive Statements ATRIAL FIBRILLATION Compared to ECG 10/30/2023 21:56:19 Atrial fibrillation no longer present Electronically Signed On 10-31-2023 10:00:49 NATURAL GAS BASIS TRADER by Brayan Cotto M.D. [id number]
[2023-10-31 00:13] VITALS: BP 132/84; PULSE 92; O2SAT 97
[2023-10-31 00:36] VITALS: BP 140/70; PULSE 76; RESP 18; O2SAT 93
== END 2023-10-31 00:32 | disposition home or self-care (01) ==
PROVIDERS: Emergency Provider Emergency Medicine; PCP Nurse Practitioner Family
DX: R07.89 Other chest pain (principal); I48.91 Unspecified atrial fibrillation; J81.1 Chronic pulmonary edema; Z11.52 Encounter for screening for COVID-19; I11.0 Hypertensive heart disease with heart failure; I50.9 Heart failure, unspecified; I25.10 Atherosclerotic heart disease of native coronary artery without angina pectoris; Z85.89 Personal history of malignant neoplasm of other organs and systems; E78.5 Hyperlipidemia, unspecified; J44.9 Chronic obstructive pulmonary disease, unspecified
CPT/HCPCS: 36415; 36600; 71045; 80053; 82803; 83690; 83735; 83880; 84484; 85025; 87426; 87804; 93005; 94640; 96374; 96375; 99285; J1940; J2405; J2930; J3010

== ENCOUNTER 2023-11-02 22:17 | Inpatient (IN) | payer MEDICARE, SELFPAY ==
[2023-11-02 22:11] VITALS: BP 172/126; PULSE 130; RESP 25; TEMP 36.6; O2SAT 96; BMI 28.6
--- NOTE | 2023-11-02 22:22 | XRR_ITS ---
PROCEDURE INFORMATION: Exam: XR Chest Exam date and time: 11/02/2023 10:25 PM Age: 88 years old Clinical indication: Shortness of breath; Prior surgery; Surgery date: 6+ months; Surgery type: Coronary stent spine vc filter; Additional info: SOB TECHNIQUE: Imaging protocol: Radiologic exam of the chest. Views: 1 view. COMPARISON: CR (CHEST, ) 11/01/2023 6:09 PM FINDINGS: Tubes, catheters and devices: Electronic device projecting over the mid chest is unchanged. Lungs: Interstitial opacities at the lung bases are unchanged and may be chronic. Pleural spaces: Unchanged trace bilateral pleural effusions. No definite pneumothorax. Right apical skin fold present. Heart/Mediastinum: Unremarkable. No cardiomegaly. Bones/joints: Thoracolumbar spinal fusion changes are again present. Stable degenerative changes of the glenohumeral joints. XR/XR chest 1V portable [id number] IMPRESSION: Stable chest. Stable bibasilar interstitial opacities with trace effusions. Correlate for infection.
--- NOTE | 2023-11-02 22:22 | ECG_ITS ---
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 Measurements Intervals [place] Rate: 139 P: 0 GA: 0 QRS: 74 QRSD: 89 T: 93 QT: 273 QTc: 416 Interpretive Statements Atrial fibrillation with rapid ventricular rate MODERATE ST DEPRESSION [0.05+ mV ST DEPRESSION] Compared to ECG 11/01/2023 18:29:38 ST (T wave) deviation now present Atrial fibrillation no longer present Aberrant conduction of supraventricular beat(s) no longer present Ventricular premature complex(es) no longer present T-wave abnormality no longer present Electronically Signed On 11-03-2023 0:32:24 INVESTMENT SALES ASSISTANT by Glenna Coelho M.D. [id number]
[2023-11-02] MEDS: dilTIAZem 5 mg/mL SDV 5 mL 10 MG IVP (22:30)
--- NOTE | 2023-11-02 22:34 | ED_ITS ---
HPI - SOB/Dyspnea 2 General: Chief Complaint: Shortness of Breath/Dyspnea Stated Complaint: RESP. DISTRESS Time Seen by Provider: 11/02/23 22:20 History of Present Illness: HPI Narrative: 88-year-old female with comple x medical history including atrial fibrillation, hypertension, CHF and COPD. Patient was recently admitted to the hospital for similar complaint but left hospital due to the holiday. Return to emergency room family due to increased shortness of breath, leg swelling and some cough. Upon present emergency room patient found to be hypoxic and tachycardic. Patient has any chest pain, fever, coughing up blood or vomiting blood. Associated symptoms: Reports chest pain and orthopnea; Deny abdominal pain, chest congestion, fever(s), hemoptysis, nausea, syncope or vomiting Review of Systems 2 General: Reports: 10 or more systems reviewed and unremarkable except in HPI and below Const: Denies: fever(s), chills or body aches Card: Reports: chest pain, irregular heart rhythm, edema, swelling of feet/ankles, dyspnea on exertion and orthopnea; Denies: syncope or pre-syncope Resp: Reports: dyspnea and productive cough; Denies: stridor, change in phlegm color, hemoptysis or chest congestion GI: Denies: abdominal pain, nausea, vomiting, hematemesis, coffee ground emesis or dysphagia : Denies: flank pain, difficulty voiding or dysuria Skin/Breast: Denies: rash, pruritus or erythema PFSH ED 2 PFSH: Medical History (Updated 11/03/23 @ 06:04 by Soila Sanchez MD) Atrial fibrillation Chronic respiratory failure with hypoxia and hypercapnia Acute on chronic respiratory failure with hypoxia and hypercapnia Hallucinations, unspecified Elevated troponin Medication side effects present Chest pain Acute encephalopathy Dysphagia Pulmonary hypertension Dysphagia Melanotic stools Acute blood loss anemia (ABLA) Chest pain Dyspnea or other respiratory complaints Post-op pain Congestive heart failure Fusion of spine Atrial fibrillation Anemia Bradycardia Depression Coronary artery disease Obstructive sleep apnea History of cancer of vulva DVT (deep venous thrombosis) Pulmonary embolism Lumbar radiculopathy Hypertension Hyperlipidemia COPD (chronic obstructive pulmonary disease) Uses trilogy at night with 2 L. Typically not on oxygen during day. Restless leg syndrome Chronic back pain Depression with anxiety History of pulmonary embolism Hx of blood clots Surgical History History of hip replacement History of tonsillectomy History of knee replacement History of coronary artery stent placement Presence of vena cava filter History of back surgery H/O: hysterectomy Family History Other Cancer Chronic back pain Social History Smoking and tobacco/nicotine status: former use of tobacco/nicotine Alcohol intake: current Alcohol intake frequency: few times a month Caregiver/support person: Yes Lives independently: Yes Household members: spouse Housing: House Physical Exam 2 Const: COMMON NORMALS: patient oriented x3 and no limitations GENERAL APPEARANCE: cooperative, well developed, anxious, ill appearing, frail appearing and Edematous; not in distress, not combative, not diaphoretic, no odor of alcohol detected and patient not mechanically ventilated HENMT: COMMON NORMALS: normocephalic, atraumatic, hearing grossly normal bilaterally, external ears normal, EAC's normal, TM's normal bilaterally, Normal external nose present, Normal nasal mucous membranes and turbinates present, moist oral mucous membranes, oropharynx normal, dentition normal and gingiva normal HEAD & SCALP: normocephalic and atraumatic NOSE: Normal external nose present and Normal nasal mucous membranes and turbinates present E XTERNAL EAR: Yes external ears normal EXTERNAL AUDITORY CANAL: EAC's normal TYMPANIC MEMBRANE: TM's normal bilaterally Cardio: COMMON NORMALS: S1 normal heart sound present and S2 normal heart sound present JUGULAR VENOUS DISTENTION: no JVD RATE: tachycardic R HYTHM: abnormal rhythm HEART SOUNDS: S1 normal heart sound present, S2 normal heart sound present, no click and no gallops BRUITS: no abdominal aortic bruits GI: COMMON NORMALS: Normal to inspection, nondistended, normoactive bowel sounds present, Soft to palpation, non-tender, No hepatosplenomegaly present, no masses and no bruits PALPATION: Yes Soft to palpation and Yes No hepatosplenomegaly present : COMMON NORMALS: Yes no CVA tenderness BLADDER/KIDNEY EXAM: Yes no CVA tenderness Back/Pelvis: COMMON NORMALS: no CVA tenderness, thoracic and lumbar spine normal to inspection, no thoracic nor lumbar tenderness, thoraco-lumbar ROM normal and straight leg raise negative bilaterally Extremity: GENERAL: Yes edema (3 plus pitting edema both legs) and No pulses abnormal Neuro: COMMON NORMALS: patient oriented x3 Psych: COMMON NORMALS: mental status grossly normal, Normal thought process present, cooperative, normal affect, speech normal, activity/motor behavior normal, denies hallucinations, denies homicidal ideation and denies suicidal ideation SPEECH: Yes normal speech THOUGHT PROCESS: Normal thought process present Course 2 Vital Signs: Vital signs: Vital Signs Temperature 97.8 F 11/06/23 04:00 Pulse Rate 97 11/06/23 04:00 Respiratory Rate 17 11/06/23 04:00 Blood Pressure 127/64 11/06/23 04:00 Pulse Oximetry 92 11/06/23 04:00 Oxygen Delivery Me thod Nasal Cannula 11/06/23 03:24 Oxygen Flow Rate 2 11/06/23 03:24 Fraction of Inspir ed Oxygen 35 11/04/23 23:38 MDM - SOB/Dyspnea Medical Decision Making Patient made comfortable emergency room had extensive workup with CBC, CMP, troponin, chest x-ray, patient was patient's on BiPAP and was given treatment including nitro, Cardizem IV and a drip. I was able to review a past medical records. Discussed Patient with the and the hospitalist. She will be admitted for further evaluation and treatment. Differential Diagnosis Likely acute exacerbation of chronic obstructive airways disease, congestive heart failure, community acquired pneumonia, asthma with exacerbation and pulmonary embolism Lab Data 11/06/23 03:17 11/06/23 03:17 Labs/Radiology: Radiology Impressions Chest X-Ray 11/04/23 07:55 IMPRESSION: 1. Heart is enlarged but stable when compared to the prior exam. 2. Nonspecific mild left lung base opacity favors atelectasis or pneumonia unchanged. Laboratory Results WBC 13.51 10^3/uL (3.29-11.43) H 11/02/23 22:23 RBC 4.66 10^6/uL (3.85-5.65) 11/02/23 22:23 Hgb 14.40 g/dL (11.27-16.99) 11/02/23 22:23 Hct 47.7 % (36-47) H 11/02/23 22:23 MCV 102.4 fl (85-98) H 11/02/23 22:23 MCH 30.9 pg (27-33) 11/02/23 22: MCHC 30.2 g/dL (30-55) 11/02/23 22: RDW 13.6 % (12.1-15.1) 11/02/23 22: Plt Count 208 10^3/cmm (157-399) 11/02/23 22: MPV 9.5 fL (7.4-10.4) 11/02/23 22: Neut % (Auto) 86.5 % 11/02/23 22: Lymph % (Auto) 6.0 % 11/02/23 22: [place] % (Auto) 7.0 % 11/02/23 22: Eos % (Auto) 0.0 % 11/02/23 22: Baso % (Auto) 0.1 % 11/02/23: Neut # (Auto) 11.67 10^3/uL (1.8-7.7) H 11/02/23 22: Lymph # (Auto) 0.8 10^3/uL (0.8-4.8) 11/02/23 22: [place] # (Auto) 1.0 10^3/uL (0.2-0.9) H 11/02/23 22: Eos # (Auto) 0.0 10^3/uL (0.0-0.8) 11/02/23 22: Baso # (Auto) 0.0 10^3/uL (0.0-0.1) 11/02/23 22: Nucleated RBC % (auto) 0 % 11/02/23: Nucleated RBCs # 0.0 /100WBC 11/02/23 22:23 Specimen Type Arterial 11/02/23 23:44 Sample Site Radial, right 11/02/23 23:44 ABG pH 7.44 (7.35-7.45) 11/02/23 23:44 ABG pCO2 62.6 mmHg (35-45) H* 11/02/23 23:44 ABG pO2 101.0 mmHg (80.0-100.0) H 11/02/23 23:44 ABG HCO3 42.7 mmol/L (22-26) H 11/02/23 23:44 ABG O2 Saturation 98.2 11/02/23 23:44 ABG Base Excess 15.3 mmol/L (-2.0-2.0) H 11/02/23 23:44 Seng Test Pos 11/02/23 23:44 A-a O2 Gradient Not Reportable 11/02/23 23:44 Hematocrit 43.3 % (37-47) 11/02/23 23:44 Hgb O2 Saturation 96.9 % (95-100) 11/02/23 23:44 Carboxyhemoglobin 0.8 %THgb (0.4-20.1) 11/02/23 23:44 Methemoglobin 0.4 % (0.4-1.5) 11/02/23 23:44 Total Hemoglobin 14.1 g/dL (12-16) 11/02/23 23:44 Sodium 143.0 mmol/L (131-143) 11/02/23 23:44 Potassium 3.5 mmol/L (3.5-5.0) 11/02/23 23:44 Glucose 141.0 mg/dL (70-115) H 11/02/23 23:44 Ionized Calcium 1.2 mmol/L (1.1-1.4) 11/02/23 23:44 O2 Delivery Device Nc 11/02/23 23:44 O2 Liters/Min 3.0 % 11/02/23 23:44 Early Childhood Worker ID [place] 11/02/23 23:44 Sodium 142 mmol/L (136-145) 11/02/23 22:23 Potassium 3.8 mmol/L (3.5-5.1) 11/02/23 22:23 Chloride 94 mmol/L (98-107) L 11/02/23 22:23 Carbon Dioxide 39 mmol/L (22-29) H 11/02/23 22:23 Anion Gap 12.8 (5-19) 11/02/23 22:23 BUN 23 mg/dL (8-23) 11/02/23 22:23 Creatinine 0.8 mg/dL (0.5-0.9) 11/02/23 22:23 GFR Calculation Not Reportable 11/02/23 22:23 Glucose 140 mg/dL (65-115) H 11/02/23 22:23 Calculated Osmolality 300 mOsm/kg (285-295) H 11/02/23 22:23 Lactic Acid 1.3 mmol/L (0.5-2.2) 11/02/23 22:23 Calcium 9.9 mg/dL (8.5-10.5) 11/02/23 22:23 Total Bilirubin 0.6 mg/dL (0.15-1.2) 11/02/23 22:23 AST 40 U/L (0-32) H 11/02/23 22:23 ALT 30 U/L (0-33) 11/02/23 22:23 Alkaline Phosphatase 190 U/L (35-105) H 11/02/23 22:23 Troponin T Baseline 31 ng/L (0-10) H 11/02/23 22:23 Troponin T 120 Minute 30.76 ng/L (0-10) H 11/03/23 00:14 Delta Troponin T -0.24 ABS# (0-10) L 11/03/23 00:14 NT-Pro-B Natriuret Pep 2664 pg/mL (0-450) H 11/02/23 22:23 Total Protein 7.3 g/dL (6.6-8.7) 11/02/23 22:23 Albumin 4.2 g/dL (3.5-5.2) 11/02/23 22:23 Globulin 3.1 g/dL (1.3-4.6) 11/02/23 22:23 XR interpretation done by ED provider, pending radiology final review EKG Data EKG 1: Interpretation: Atrial flutter/atrial tachycardia with a rate of 139. Nonspecific ST depression QT 273 RS duration 89 Critical Care Time 2 Critical Care Time: Critical Care Time: Yes Total Critical Care Time: 45 Attestation: Time spent discussing patient with the family. Time spent reviewing past medical history, time spent reassessing patient after each treatment time spent talking to the patient and hospitalist about admission. Discharge Plan Discharge Patient Disposition: Admitted As Inpatient Admit Provider: Soila Sanchez Clinical Impression: Elevated troponin, Atrial arrhythmia, Atypical chest pain, Hypertensive urgency Congestive heart failure Qualifiers: Heart failure type: unspecified Heart failure chronicity: acute on chronic Q ualified Code(s): I50.9 - Heart failure, unspecified Edema Qualifiers: Edema type: generalized Qualified Code(s): R60.1 - Generalized edema Condition: Stable Coding Level of Care Code ED First Leveler for Chg Fwcornell
[2023-11-02 22:38] LABS: Basophils % 0.1 %; Hematocrit 47.7 % (36-47); Lymphocytes # 0.8 10^3/uL (0.8-4.8); Mean Corpuscular HGB Conc 30.2 g/dL (30-55); Mean Corpuscular Hemoglobin 30.9 pg (27-33); Mean Corpuscular Volume 102.4 fl (85-98); Mean Platelet Volume 9.5 fL (7.4-10.4); Neutrophils # 11.67 10^3/uL (1.8-7.7); Neutrophils % 86.5 %; Nucleated Red Blood Cells % 0 %; Platelet Count 208 10^3/cmm (157-399); Red Blood Count 4.66 10^6/uL (3.85-5.65); Red Cell Distribution Width 13.6 % (12.1-15.1); White Blood Count 13.51 10^3/uL (3.29-11.43)
[2023-11-02] MEDS: nitroglycerin 1 gm/inch oint Pkt 1 INCH TOPICAL (22:45)
[2023-11-02] MEDS: FUROsemide 10 mg/mL SDV 10mL 60 MG IVP (22:45)
[2023-11-02 22:55] VITALS: BP 173/78; PULSE 131; RESP 27; O2SAT 91
[2023-11-02 22:59] LABS: Lactic Sepsis W/Reflex 1.3 mmol/L (0.5-2.2)
[2023-11-02 23:00] LABS: Troponin(5th) Baseline 31 ng/L (0-10)
[2023-11-02 23:09] LABS: Alanine Aminotransferase 30 U/L (0-33); Albumin Level 4.2 g/dL (3.5-5.2); Alkaline Phosphatase 190 U/L (35-105); Aspartate Amino Transferase 40 U/L (0-32); Blood Urea Nitrogen 23 mg/dL (8-23); Calcium 9.9 mg/dL (8.5-10.5); Carbon Dioxide 39 mmol/L (22-29); Chloride 94 mmol/L (98-107); Globulin 3.1 g/dL (1.3-4.6); Glucose 140 mg/dL (65-115); NT Pro B Type Natriuretic Pept 2664 pg/mL (0-450); Osmolality Calculated 300 mOsm/kg (285-295); Sodium 142 mmol/L (136-145); Total Bilirubin 0.6 mg/dL (0.15-1.2); Total Protein 7.3 g/dL (6.6-8.7)
[2023-11-02 23:14] LABS: Anion Gap 12.8 (5-19); Potassium 3.8 mmol/L (3.5-5.1)
[2023-11-02 23:47] VITALS: PULSE 124; RESP 26; O2SAT 96
[2023-11-02 23:55] LABS: ABG PH Result 7.44 (7.35-7.45); Arterial Blood Gas Hematocrit 43.3 % (37-47); Base Excess ABG 15.3 mmol/L (-2.0-2.0); Blood Gas Allen Test Pos; Blood Gas Operator Identificat WALCI; Blood Gas Sample Site Radial, right; Blood Gas Sample Type Arterial; Carboxyhemoglobin 0.8 %THgb (0.4-20.1); HCO3 ABG 42.7 mmol/L (22-26); HGB O2 Sat 96.9 % (95-100); Ionized Calcium Level - ABG 1.2 mmol/L (1.1-1.4); Methemoglobin 0.4 % (0.4-1.5); Oxygen Device NC; Oxygen Saturation ABG 98.2; Potassium Level - ABG 3.5 mmol/L (3.5-5.0); Total Hemoglobin 14.1 g/dL (12-16)
[2023-11-02 23:56] LABS: ABG PCO2 62.6 mmHg (35-45)
[2023-11-03] VITALS (58 sets, daily range): BP systolic 90–158; BP diastolic 49–94; PULSE 71–123; RESP 17–49; TEMP 36.6; O2SAT 81–98
[2023-11-03 00:41] LABS: Troponin 5 2HR 30.76 ng/L (0-10)
[2023-11-03 00:42] LABS: Troponin 5 2HR Delta -0.24 ABS# (0-10)
[2023-11-03] MEDS: labetalol 5 mg/mL SDV 20mL 10 MG IVP (00:45)
[2023-11-03] MEDS: dilTIAZem 100 MG in sodium chloride 0.9% (add-van) 100 ML IV (01:22)
--- NOTE | 2023-11-03 01:46 | PC.NURSE ---
Report called to NADYA Flores in ICU. All questions and concerns addressed at time of report.
[2023-11-03] MEDS: ondansetron 2 mg/ML SDV 2 mL 4 MG IVP (02:23)
--- NOTE | 2023-11-03 04:00 | P.HP_ITS ---
Providers/Chief Complaint 2 Admitting Physician: Soila Sanchez MD Primary Care Provider: June Merchant Chief Complaint: RESP. DISTRESS History of Present Illness Maria Teresa Woodruff is a 88 year old female with history of atrial fibrillation, history of DVT, on chronic anticoagulation with Xarelto, COPD, using trilogy at night, 2 L oxygen, CHF with recent recurrent admissions for A fib presented to the ER today with worsening shortness of breath and lower extremity edema. She was recently also here on with hypoxia and was treated for COPD exacerbation. She was discharged with a Medrol Dosepak and albuterol inhaler. She presents to the emergency room today Due to persistence of symptoms. Denies any chest pain. She is found to be in A-fib with RVR with heart rate initially in the 160s for which she was started on Cardizem infusion in the emergency room which is continued at this point. Her oxygen saturation was down to 81% on arrival for which she was placed on BiPAP. ABG showed evidence of chronic hypoxic hypercapnic respiratory failure. No reported fever at home. Recently tested negative on COVID and influenza antigens. Review of Systems 2 General: Reports: 10 or more systems reviewed and unremarkable except in HPI and below Const: Denies: fever(s), chills or body aches Eyes: Denies: change in vision, blurry vision or photophobia ENMT: Reports: hoarseness; Denies: throat pain, enlarged tonsils, odynophagia or nasal congestion Card: Denies: chest pain, palpitations, irregular heart rhythm, edema, swelling of feet/ankles, lightheadedness, pre-syncope, dyspnea on exertion or orthopnea Resp: Denies: dyspnea, productive cough, non-productive cough, wheezing, stridor, pain on inspiration, change in phlegm color, hemoptysis or chest congestion GI: Denies: abdominal pain, nausea, vomiting, hematemesis, coffee ground emesis, dysphagia, heartburn, diarrhea, constipation, GI cramping, change in stool character, hematochezia or melena : Denies: flank pain, difficulty voiding, dysuria, urinary frequency, urinary urgency, urinary hesitancy or hematuria Musc: Denies: neck pain, back pain, extremity pain, joint swelling, joint warmth or deformity Neuro: Denies: headache(s), numbness in extremities, weakness in extremities, sensory changes, difficulty walking, frequent falls, dizziness, vertigo, behavioral changes, Slurred speech present or seizure-like activity Psych: Denies: anxiety, depression, suicidal ideation or homicidal ideation Endo: Denies: polyuria, polydipsia, tired all the time, cold intolerance or hot flashes Les/Lymph: Denies: easy bruising or easy bleeding Medications/Allergies Home Medications Medication Instructions Recorded Confirmed Last Taken Type ergocalciferol (vitamin D2) 1,250 1,250 mcg PO Q7D 05/21/21 09/26/23 09/24/23 History mcg (50,000 unit) capsule clobetasol 0.05 % topical gel 1 applic topical DAILY 09/09/21 09/26/23 09/25/23 History atorvastatin 40 mg tablet 40 mg PO BEDTIME #90 tabs 04/13/22 09/26/23 09/25/23 Rx nitroglycerin 0.4 mg sublingual 0.4 mg sublingual Q5M PRN chest 04/13/22 09/26/23 Unknown Rx tablet pain #25 tabs ascorbic acid (vitamin C) 500 mg 1,000 mg PO QAM 08/01/22 09/26/23 09/26/23 History tablet (Vitamin C) hydrocodone 5 mg-acetaminophen 325 1 tab PO Q8H PRN pain 08/31/22 09/26/23 09/25/23 History mg tablet vit A-vit Q-uoyv-pvzyvfyp lozenges 1 gilbert PO DAILY 08/31/22 09/26/23 09/26/23 History (Zinc (with Vitamins A and C) Lozenges) magnesium oxide 250 mg PO DAILY 01/05/23 09/26/23 09/26/23 History rivaroxaban 20 mg tablet (Xarelto) 20 mg PO DAILY #90 tabs 02/22/23 09/26/23 09/26/23 Rx gabapentin 100 mg capsule 200 mg PO BEDTIME 09/13/23 09/26/23 09/25/23 History pantoprazole 40 mg tablet,delayed 40 mg PO BID #60 tabs 09/15/23 09/26/23 09/26/23 Rx release lorazepam 0.5 mg tablet 0.25 mg (1/2 x 0.5 mg) PO BID PRN 09/29/23 Unknown Rx Anxiety #8 tabs potassium chloride 20 mEq 10 meq (1/2 x 20 mEq) PO DAILY #30 09/29/23 09/26/23 09/26/23 Rx tablet,extended release tabs albuterol sulfate 90 mcg/actuation 2 inh inhalation Q4H PRN shortness 10/31/23 Unknown Rx aerosol inhaler of breath or wheezing #6.7 grams methylprednisolone 4 mg tablets in See Rx Instructions PO .COMPLEX 10/31/23 Unknown Rx a dose pack (Medrol (Re[place]al[place])) #21 ea diltiazem HCl 300 mg capsule,24 300 mg PO DAILY #30 caps 11/01/23 Unknown Rx hr,extended release furosemide 40 mg tablet 40 mg PO BID #10 tabs 11/01/23 Unknown Rx Allergies Allergy/AdvReac Type Severity Reaction Status Date / Time epinephrine Allergy Unknown Unknown Verified 11/01/23 18:03 amoxicillin Allergy rash Verified 11/01/23 18:03 hydrochlorothiazide Allergy unknown Verified 11/01/23 18:03 Iodinated Contrast Media Allergy Unknown Verified 11/01/23 18:03 morphine Allergy nausea, Verified 11/01/23 18:03 hyper Penicillins Allergy rash Verified 11/01/23 18:03 Tetanus Vaccines and Toxoid Allergy unk Verified 11/01/23 18:03 PFSH Acute 2 PFSH: Medical History (Updated 11/03/23 @ 06:04 by Soila Sanchez MD) Atrial fibrillation Chronic respiratory failure with hypoxia and hypercapnia Acute on chronic respiratory failure with hypoxia and hypercapnia Hallucinations, unspecified Elevated troponin Medication side effects present Chest pain Acute encephalopathy Dysphagia Pulmonary hypertension Dysphagia Melanotic stools Acute blood loss anemia (ABLA) Chest pain Dyspnea or other respiratory complaints Post-op pain Congestive heart failure Fusion of spine Atrial fibrillation Anemia Bradycardia Depression Coronary artery disease Obstructive sleep apnea History of cancer of vulva DVT (deep venous thrombosis) Pulmonary embolism Lumbar radiculopathy Hypertension Hyperlipidemia COPD (chronic obstructive pulmonary disease) Uses trilogy at night with 2 L. Typically not on oxygen during day. Restless leg syndrome Chronic back pain Depression with anxiety History of pulmonary embolism Hx of blood clots Surgical History History of hip replacement History of tonsillectomy History of knee replacement History of coronary artery stent placement Presence of vena cava filter History of back surgery H/O: hysterectomy Family History Other Cancer Chronic back pain Social History Smoking and tobacco/nicotine status: former use of tobacco/nicotine Alcohol intake: current Alcohol intake frequency: few times a month Caregiver/support person: Yes Lives independently: Yes Household members: spouse Housing: House Vitals/I&O/Wt Last Vital Signs Temp 97.8 F 11/02/23 22:11 Pulse 93 11/03/23 05:10 Resp 22 H 11/03/23 05:10 BP 150/80 11/03/23 05:10 Pulse Ox 92 11/03/23 05:10 O2 Del Method Nasal Cannula, BiPAP 11/03/23 02:16 O2 Flow Rate 3 11/02/23 22:55 FiO2 35 11/02/23 23:47 11/02/23 11/02/23 11/03/23 14:59 22:59 06:59 Output Total 1600 / 1600 Balance -1600 / -1600 Weight last 48 hrs Weight 73.936 kg Weight 75.75 kg Physical Exam 2 Narrative: General: No acute distress, AO x3 HEENT: PERRLA, pupils bilaterally equal and reactive, pallors not present Chest: Crackles to auscultation bilaterally CVS: S1-S2 regular, no murmurs, no tachycardia, no gallops, no rubs Abdomen: Soft, nontender, no organomegaly, bowel sounds present Neuro: No focal deficits, no facial deformity, AO x3, power 5/5 in all limbs Urinary Catheter Management: Long: Cath Placed During This Visit: yes Urinary Catheter Date of Insertion: 11/03/23 Urinary Catheter Time of Insertion: 00:06 Data 11/02/23 22:23 11/02/23 22:23 A&P Assessment and plan (1) Atrial fibrillation with rapid ventricular response: (2) Pulmonary edema: (3) Chronic respiratory failure with hypoxia and hypercapnia: Plan 88-year-old lady with PMH as above presenting to the hospital today with chief complaints of increasing dyspnea over the past 3 to 4 days. She is found to be in A-fib with RVR and evidence of pulmonary edema. Heart rate in the 160s, started on Cardizem infusion in the emergency room which we will continue after admission to [facility]. Additionally start overlap with p.o. Cardizem 60 p.o. every 6 hours titrate as needed. ABG with evidence of acute on chronic hypoxic hypercapnic respiratory failure. For which she is placed on BiPAP. Typically supposed to use trilogy at nighttime. Attempt to wean down BiPAP onto nasal cannula as tolerated in the daytime. Continue Xarelto for anticoagulation as patient takes at home. Lasix 40 mg IV every 12 hours to continue for pulmonary edema, acute on chronic diastolic CHF likely precipitated by A-fib RVR. Closely monitor kidney function and urine output. Recent echocardiogram from 09/13/2023 with normal LVEF of 55 to 60%. Indeterminate diastolic function. Moderate pulmonary hypertension with PASP of 45. Moderate to severe tricuspid regurgitation, new since 2021. Troponin series today mildly elevated, serial delta is negative, low concern for ACS. DVT prophylaxis: Xarelto DNR/DNI Attestations 2 Medical Necessity Statement*: Greater than 2 midnight admission is anticipated for management of acute on chronic heart failure, need for IV diuresis, Cardizem infusion to maintain heart rate. Coding Level of Care Code Acute Code for Chg Fwd High MDM includes number and complexity of problems actively addressed during encounter, amount and/or complexity of data reviewed/ordered and described risk of complication, morbidity or mortality of management as documented Diagnoses Atrial fibrillation with rapid ventricular response I48.91 Pulmonary edema J81.1 Chronic respiratory failure with hypoxia and hypercapnia J96.11; J96.12
[2023-11-03 05:12] LABS: Troponin 5 6HR 36.36 ng/L (0-10); Troponin 5 6HR Delta 5.36 ng/L (0-12)
[2023-11-03] MEDS: FUROsemide 10 mg/mL SDV 4mL 40 MG IVP ×2 (06:24→17:31)
[2023-11-03] MEDS: dilTIAZem 60 mg Tablet PO ×4 (06:24→23:25)
[2023-11-03] MEDS: ipratropium-albuterol 3 mL Neb INHALATION ×6 (06:41→23:31)
[2023-11-03] MEDS: methylPREDNISolone sod succ 40 mg/mL INJ IVP ×3 (06:55→22:54)
--- NOTE | 2023-11-03 07:28 | P.PN_ITS ---
Subjective 2 Subjective: Maria Teresa reports she feels better than she did on admission. Still wheezing and still short of breath. Believes she is in less distress. No chest discomfort currently Medications: Reviewed: Yes Vitals/I&O/Wt Last Vital Signs Temp 97.8 F 11/02/23 22:11 Pulse 104 H 11/03/23 06:44 Resp 24 H 11/03/23 06:44 BP 150/80 11/03/23 05:10 Pulse Ox 90 11/03/23 06:44 O2 Del Method Nasal Cannula 11/03/23 06:44 O2 Flow Rate 6 11/03/23 06:44 FiO2 35 11/02/23 23:47 11/02/23 11/03/23 11/03/23 22:59 06:59 14:59 Output Total 1999 Balance -1999 Weight last 48 hrs Weight 73.936 kg Weight 73.936 kg Weight 75.75 kg Physical Exam 2 Narrative: General exam demonstrates a white female, on 6 L of oxygen, mildly tachypneic Neck is supple Cardiovascular irregular, irregular with heart rate around 100. No murmur Lungs bilateral expiratory wheezes Abdomen is soft, bowel sounds noted Extremities 1+ edema bilaterally Urinary Catheter Management: Long: Cath Placed During This Visit: yes Reason for Continuing Indwelling Catheter: Accurate Measurement of Urinary Output in Critically Ill Patients Urinary Catheter Date of Insertion: 11/03/23 Urinary Catheter Time of Insertion: 00:06 Data 11/02/23 22:23 11/02/23 22:23 A&P Assessment and plan (1) Diastolic heart failure: Patient presents with evidence of acute diastolic heart failure Continue Lasix 40 mg IV every 12 hours Monitor renal function closely assisted renal toxic medication with BMP daily. Repeat BMP around 1130 today Last echo demonstrated pulmonary hypertension, tricuspid regurgitation. Chest x-ray on admission consistent with pulmonary edema Continue to monitor for improvement and weaning of oxygen (2) Atrial fibrillation: Patient presented with atrial fibrillation with rapid ventricular rate. This may be secondary to respiratory failure or heart failure. It does not necessarily mean failure of current medical treatment Continue Cardizem drip, wean as tolerated Continue diltiazem p.o. 60 mg every 6 hours, adjust as needed Past experience with metoprolol demonstrated bradycardia. She is trying to avoid this currently but this may need to be added back. (3) Chronic respiratory failure with hypoxia and hypercapnia: Patient with history of chronic respiratory failure with hypoxemia and hypercapnia She has acute exacerbation of COPD currently She has fairly significant amount of hypoxia, and we will try to wean oxygen as tolerated Continue trilogy at night Continue IV steroids currently Add doxycycline. 1 week ago she got ill with wheezing, and had a fever. Recent rapid COVID was negative. DuoNeb every 4 hours, budesonide twice daily (4) History of pulmonary embolism: Continue patient's home Xarelto Plan Other medical problems as outlined in past medical history DNR Xarelto will suffice for DVT prophylaxis Attestations 2 Medical Necessity Statement*: Needs continued hospital stay for IV steroids, frequent breathing treatments, currently on IV Cardizem for A-fib with RVR. Coding Level of Care Code Acute Code for [facility] Fwd Diagnoses Diastolic heart failure I50.30 Atrial fibrillation I48.91 Chronic respiratory failure with hypoxia and hypercapnia J96.11; J96.12 History of pulmonary embolism Z86.711
[2023-11-03] MEDS: budesonide 0.5 mg/2 mL Neb INHALATION ×2 (08:34→19:56)
[2023-11-03] MEDS: pantoprazole DR 40 mg Tablet PO (09:11)
[2023-11-03] MEDS: doxycycline 100 mg Tablet PO ×2 (09:11→17:30)
[2023-11-03] MEDS: rivaroxaban 10 mg Tablet 20 MG PO (09:11)
[2023-11-03] MEDS: HYDROcodone-acetaminophen 5-325 mg Tablet 1 TAB PO ×2 (09:34→20:01)
[2023-11-03 14:07] LABS: Blood Urea Nitrogen 23 mg/dL (8-23); Calcium 9.1 mg/dL (8.5-10.5); Chloride 89 mmol/L (98-107); Glucose 281 mg/dL (65-115); Osmolality Calculated 298 mOsm/kg (285-295); Sodium 137 mmol/L (136-145)
[2023-11-03 14:11] LABS: Carbon Dioxide 41 mmol/L (22-29)
[2023-11-03] MEDS: gabapentin 100 mg Capsule 200 MG PO (20:02)
[2023-11-03] MEDS: atorvastatin 40 mg Tablet PO (20:02)
[2023-11-04] VITALS (21 sets, daily range): BP systolic 104–150; BP diastolic 56–80; PULSE 73–109; RESP 13–27; TEMP 36.8–37; O2SAT 92–96
[2023-11-04] MEDS: ipratropium-albuterol 3 mL Neb INHALATION ×6 (03:24→23:32)
--- NOTE | 2023-11-04 04:54 | PC.NURSE ---
Patient rested comfortably throughout shift. Bipap tolerated well with periodic breaks for drinks. Patient did report a considerable amount of anxiety related to spouse and home situation. 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
[2023-11-04 05:22] LABS: Basophils % 0.1 %; Hematocrit 41.9 % (36-47); Lymphocytes # 0.4 10^3/uL (0.8-4.8); Lymphocytes % 3.7 %; Mean Corpuscular HGB Conc 30.1 g/dL (30-55); Mean Corpuscular Hemoglobin 30.7 pg (27-33); Mean Corpuscular Volume 102.2 fl (85-98); Mean Platelet Volume 9.6 fL (7.4-10.4); Monocytes # 0.3 10^3/uL (0.2-0.9); Monocytes % 2.5 %; Neutrophils # 10.35 10^3/uL (1.8-7.7); Neutrophils % 93.2 %; Nucleated Red Blood Cells % 0 %; Platelet Count 152 10^3/cmm (157-399); Red Cell Distribution Width 13.4 % (12.1-15.1)
[2023-11-04 05:40] LABS: Alanine Aminotransferase 21 U/L (0-33); Albumin Level 3.4 g/dL (3.5-5.2); Alkaline Phosphatase 142 U/L (35-105); Anion Gap 12.6 (5-19); Aspartate Amino Transferase 25 U/L (0-32); Blood Urea Nitrogen 27 mg/dL (8-23); Calcium 9.3 mg/dL (8.5-10.5); Carbon Dioxide 40 mmol/L (22-29); Chloride 91 mmol/L (98-107); Creatinine Clr Calc Pharmacy 49.7205; Globulin 2.6 g/dL (1.3-4.6); Glucose 189 mg/dL (65-115); Osmolality Calculated 300 mOsm/kg (285-295); Potassium 3.6 mmol/L (3.5-5.1); Sodium 140 mmol/L (136-145); Total Bilirubin 0.6 mg/dL (0.15-1.2)
[2023-11-04] MEDS: methylPREDNISolone sod succ 40 mg/mL INJ IVP ×2 (06:09→18:22)
[2023-11-04] MEDS: dilTIAZem 60 mg Tablet PO ×4 (06:09→23:29)
[2023-11-04] MEDS: FUROsemide 10 mg/mL SDV 4mL 40 MG IVP ×2 (06:09→18:22)
--- NOTE | 2023-11-04 07:55 | XRR_ITS ---
PROCEDURE INFORMATION: Exam: XR Chest Exam date and time: 11/04/2023 9:27 AM Age: 88 years old Clinical indication: Shortness of breath; Additional info: Follow up resp failure TECHNIQUE: Imaging protocol: Radiologic exam of the chest. Views: 1 view. Total images: 264 COMPARISON: CR (CHEST, ) 11/02/2023 10:25 PM FINDINGS: Tubes, catheters and devices: Electronic device projecting over mid chest again noted. Lungs: Nonspecific mild left lung base opacity favors atelectasis or pneumonia unchanged. Pleural spaces: Unremarkable. No pleural effusion. No pneumothorax. Heart/Mediastinum: Heart is enlarged but stable when compared to the prior exam. Vasculature: An inferior vena cava filter lies in appropriate position. Atherosclerosis is evident. Bones/joints: Osseous structures are unchanged from the prior exam. Partially visualized spinal fusion hardware noted. XR/XR chest 1V portable [id number] IMPRESSION: 1. Heart is enlarged but stable when compared to the prior exam. 2. Nonspecific mild left lung base opacity favors atelectasis or pneumonia unchanged.
[2023-11-04] MEDS: budesonide 0.5 mg/2 mL Neb INHALATION ×2 (08:48→20:40)
[2023-11-04] MEDS: doxycycline 100 mg Tablet PO ×2 (08:51→18:17)
[2023-11-04] MEDS: acetaZOLAMIDE 250 mg Tablet PO (08:51)
[2023-11-04] MEDS: pantoprazole DR 40 mg Tablet PO (08:51)
[2023-11-04] MEDS: rivaroxaban 10 mg Tablet 20 MG PO (08:51)
--- NOTE | 2023-11-04 12:09 | P.PN_ITS ---
Subjective 2 Subjective: Maria Teresa reports she is a little bit better. She had required BiPAP most of last night. Medications: Reviewed: Yes Vitals/I&O/Wt Last Vital Signs Temp 98.6 F 11/04/23 04:53 Pulse 108 H 11/04/23 11:47 Resp 16 11/04/23 11:46 BP 119/80 11/04/23 09:31 Pulse Ox 92 11/04/23 11:46 O2 Del Method Nasal Cannula 11/04/23 11:46 O2 Flow Rate 4 11/04/23 11:46 FiO2 35 11/04/23 03:25 11/03/23 11/04/23 11/04/23 22:59 06:59 14:59 Intake Total 568.167 / 568.167 480 / 1048.167 Output Total 850 / 1850 Balance 568.167 / -431.833 -370 / -801.833 Weight last 48 hrs Weight 74.843 kg Weight 73.936 kg Weight 73.936 kg Weight 75.75 kg Physical Exam 2 Narrative: General exam demonstrates a white female, on 4 L of oxygen, mildly tachypneic Neck is supple Cardiovascular irregular, irregular without murmur. No murmur Lungs bilateral expiratory wheezes Abdomen is soft, bowel sounds noted Extremities 1+ edema bilaterally Urinary Catheter Management: Long: Cath Placed During This Visit: yes Reason for Continuing Indwelling Catheter: Accurate Measurement of Urinary Output in Critically Ill Patients Urinary Catheter Date of Insertion: 11/03/23 Urinary Catheter Time of Insertion: 00:06 Data 11/04/23 04:41 11/04/23 04:41 A&P Assessment and plan (1) Diastolic heart failure: Patient presents with evidence of acute diastolic heart failure Continue Lasix 40 mg IV every 12 hours. She still has a significant amount of fluid on board. Monitor renal function closely assisted renal toxic medication with BMP daily. Last echo demonstrated pulmonary hypertension, tricuspid regurgitation. Chest x-ray on admission consistent with pulmonary edema Continue to monitor for improvement and weaning of oxygen CBC daily (2) Atrial fibrillation: Patient presented with atrial fibrillation with rapid ventricular rate. This may be secondary to respiratory failure or heart failure. It does not necessarily mean failure of current medical treatment Continue diltiazem p.o. 60 mg every 6 hours, adjust as needed. Currently heart rate controlled Past experience with metoprolol demonstrated bradycardia. She is trying to avoid this currently but this may need to be added back. (3) Chronic respiratory failure with hypoxia and hypercapnia: Patient with history of chronic respiratory failure with hypoxemia and hypercapnia She has acute exacerbation of COPD currently She has fairly significant amount of hypoxia, and we will try to wean oxygen as tolerated Continue trilogy at night Continue IV steroids currently. Reduce amount Continue doxycycline. 1 week ago she got ill with wheezing, and had a fever. Recent rapid COVID was negative. DuoNeb every 4 hours, budesonide twice daily Add acetazolamide, to prevent severe metabolic alkalosis and more CO2 retention (4) History of pulmonary embolism: Continue patient's home Xarelto Plan Other medical problems as outlined in past medical history DNR Xarelto will suffice for DVT prophylaxis Attestations 2 Medical Necessity Statement*: Needs continued hospitalization for further diuresis from acute congestive heart failure. She still has a significant amount of extra fluid on board. She is not ready for discharge but can transfer to [facility] Diagnoses Diastolic heart failure I50.30 Atrial fibrillation I48.91 Chronic respiratory failure with hypoxia and hypercapnia J96.11; J96.12 History of pulmonary embolism Z86.711 Time Spent (min) 24
[2023-11-04] MEDS: gabapentin 100 mg Capsule 200 MG PO (21:04)
[2023-11-04] MEDS: atorvastatin 40 mg Tablet PO (21:04)
[2023-11-04] MEDS: HYDROcodone-acetaminophen 5-325 mg Tablet 1 TAB PO (21:07)
[2023-11-05] VITALS (15 sets, daily range): BP systolic 127–150; BP diastolic 65–88; PULSE 60–105; RESP 14–22; TEMP 36.4–36.9; O2SAT 92–97
[2023-11-05] MEDS: ipratropium-albuterol 3 mL Neb INHALATION ×6 (04:23→23:51)
[2023-11-05 05:38] LABS: Basophils % 0.1 %; Hematocrit 45.1 % (36-47); Lymphocytes # 0.4 10^3/uL (0.8-4.8); Lymphocytes % 2.7 %; Mean Corpuscular HGB Conc 29.7 g/dL (30-55); Mean Corpuscular Hemoglobin 30.1 pg (27-33); Mean Corpuscular Volume 101.3 fl (85-98); Mean Platelet Volume 9.8 fL (7.4-10.4); Monocytes # 0.5 10^3/uL (0.2-0.9); Monocytes % 3.2 %; Neutrophils # 14.41 10^3/uL (1.8-7.7); Neutrophils % 93.4 %; Nucleated Red Blood Cells % 0 %; Platelet Count 173 10^3/cmm (157-399); Red Blood Count 4.45 10^6/uL (3.85-5.65); Red Cell Distribution Width 13.4 % (12.1-15.1); White Blood Count 15.44 10^3/uL (3.29-11.43)
[2023-11-05] MEDS: dilTIAZem 60 mg Tablet PO (05:50)
[2023-11-05] MEDS: methylPREDNISolone sod succ 40 mg/mL INJ IVP (05:54)
[2023-11-05] MEDS: FUROsemide 10 mg/mL SDV 4mL 40 MG IVP (05:54)
[2023-11-05 06:03] LABS: Anion Gap 9.5 (5-19); Blood Urea Nitrogen 35 mg/dL (8-23); Calcium 9.7 mg/dL (8.5-10.5); Chloride 91 mmol/L (98-107); Creatinine Clr Calc Pharmacy 40.4994; Glucose 273 mg/dL (65-115); Osmolality Calculated 304 mOsm/kg (285-295); Potassium 3.5 mmol/L (3.5-5.1); Sodium 138 mmol/L (136-145)
[2023-11-05 06:08] LABS: Carbon Dioxide 41 mmol/L (22-29)
--- NOTE | 2023-11-05 07:29 | PC.SOCIAL ---
Pg 2 IMM Explained to pt Pg 2 IMM. No questions voiced. Provided pt a copy. Initialed, dated, & timed a copy & placed in chart.
[2023-11-05] MEDS: budesonide 0.5 mg/2 mL Neb INHALATION ×2 (07:34→20:04)
--- NOTE | 2023-11-05 10:11 | P.PN_ITS ---
Subjective 2 Subjective: Maria Teresa reports she feels little bit better. Less short of breath. Coughing up some brownish substance on occasion. Medications: Reviewed: Yes Vitals/I&O/Wt Last Vital Signs Temp 97.8 F 11/05/23 07:58 Pulse 60 11/05/23 07:58 Resp 15 11/05/23 07:58 BP 144/88 11/05/23 07:58 Pulse Ox 92 11/05/23 07:58 O2 Del Method Nasal Cannula 11/05/23 07:58 O2 Flow Rate 4 11/05/23 07:35 FiO2 35 11/04/23 23:38 11/04/23 11/05/23 11/05/23 22:59 06:59 14:59 Intake Total 240 / 440 240 / 240 Output Total 2500 / 2500 350 / 2850 Balance -2260 / -2060 -350 / -2410 240 / 240 Weight last 48 hrs Weight 76.771 kg Weight 74.843 kg Physical Exam 2 Narrative: General exam demonstrates a white female, on 4 L of oxygen\ Neck is supple Cardiovascular irregular, irregular without murmur. No murmur Lungs bilateral expiratory wheezes, few rhonchi Abdomen is soft, bowel sounds noted Extremities 1+ edema bilaterally Urinary Catheter Management: Long: Cath Placed During This Visit: yes Reason for Continuing Indwelling Catheter: Accurate Measurement of Urinary Output in Critically Ill Patients Urinary Catheter Date of Insertion: 11/03/23 Urinary Catheter Time of Insertion: 00:06 Data 11/05/23 05:00 11/05/23 05:00 A&P Assessment and plan (1) Diastolic heart failure: Patient presents with evidence of acute diastolic heart failure She is becoming more compensated. Renal function slightly worse. Discontinue IV Lasix. Changed to p.o. Lasix.. Monitor renal function closely assisted renal toxic medication with BMP daily. Last echo demonstrated pulmonary hypertension, tricuspid regurgitation. Chest x-ray on admission consistent with pulmonary edema Continue to monitor for improvement and weaning of oxygen CBC daily, BMP, magnesium daily (2) Atrial fibrillation: Patient presented with atrial fibrillation with rapid ventricular rate. This may be secondary to respiratory failure or heart failure. It does not necessarily mean failure of current medical treatment Changed to extended release diltiazem. Currently heart rate controlled Past experience with metoprolol demonstrated bradycardia. She is trying to avoid this currently but this may need to be added back. Anticoagulation with Xarelto (3) Chronic respiratory failure with hypoxia and hypercapnia: Patient with history of chronic respiratory failure with hypoxemia and hypercapnia She has acute exacerbation of COPD currently She has fairly significant amount of hypoxia, and we will try to wean oxygen as tolerated Continue trilogy at night Change IV steroids to p.o. Continue doxycycline. 1 week ago she got ill with wheezing, and had a fever. Recent rapid COVID was negative. Chest x-ray left lower lobe infiltrate versus atelectasis. Rocephin added. DuoNeb every 4 hours, budesonide twice daily Continue acetazolamide, to prevent severe metabolic alkalosis and more CO2 retention Rapid COVID-negative on October 30. Secondary to length of illness, repeating COVID PCR will be useful at this time. (4) History of pulmonary embolism: Continue patient's home Xarelto Plan Other medical problems as outlined in past medical history DNR Xarelto will suffice for DVT prophylaxis Attestations 2 Medical Necessity Statement*: Needs continued hospitalization for treatment of COPD exacerbation with frequent nebs, transition to oral medication for heart failure Diagnoses Diastolic heart failure I50.30 Atrial fibrillation I48.91 Chronic respiratory failure with hypoxia and hypercapnia J96.11; J96.12 History of pulmonary embolism Z86.711 Time Spent (min) 24
[2023-11-05] MEDS: doxycycline 100 mg Tablet PO ×2 (11:00→17:17)
[2023-11-05] MEDS: rivaroxaban 10 mg Tablet 20 MG PO (11:00)
[2023-11-05] MEDS: pantoprazole DR 40 mg Tablet PO (11:00)
[2023-11-05] MEDS: acetaZOLAMIDE 250 mg Tablet PO (11:00)
[2023-11-05] MEDS: predniSONE 20 mg Tablet 40 MG PO (11:00)
[2023-11-05] MEDS: cefTRIAXone 1,000 MG in sodium chloride 0.9% (plus) 50 ML 100 MG IV (11:00)
[2023-11-05] MEDS: docusate sodium 100 mg Capsule PO ×2 (11:44→17:17)
[2023-11-05] MEDS: gabapentin 100 mg Capsule 200 MG PO (20:38)
[2023-11-05] MEDS: HYDROcodone-acetaminophen 5-325 mg Tablet 1 TAB PO (20:39)
[2023-11-05] MEDS: atorvastatin 40 mg Tablet PO (20:39)
[2023-11-05] MEDS: dilTIAZem 30 mg Tablet PO (22:22)
[2023-11-05] MEDS: dilTIAZem 5 mg/mL SDV 5 mL 10 MG IVP (22:23)
[2023-11-06] VITALS (19 sets, daily range): BP systolic 127–165; BP diastolic 64–104; PULSE 59–138; RESP 15–20; TEMP 36.6–37.2; O2SAT 91–97
[2023-11-06] MEDS: dilTIAZem 5 mg/mL SDV 5 mL 10 MG IVP ×2 (02:01→22:05)
[2023-11-06] MEDS: ipratropium-albuterol 3 mL Neb INHALATION ×4 (03:22→19:58)
[2023-11-06 04:14] LABS: Basophils % 0.3 %; Hematocrit 45.5 % (36-47); Lymphocytes # 0.5 10^3/uL (0.8-4.8); Lymphocytes % 3.3 %; Mean Corpuscular HGB Conc 29.9 g/dL (30-55); Mean Corpuscular Hemoglobin 30.8 pg (27-33); Mean Corpuscular Volume 102.9 fl (85-98); Mean Platelet Volume 9.7 fL (7.4-10.4); Monocytes # 0.7 10^3/uL (0.2-0.9); Neutrophils # 13.16 10^3/uL (1.8-7.7); Nucleated Red Blood Cells % 0 %; Platelet Count 199 10^3/cmm (157-399); Red Blood Count 4.42 10^6/uL (3.85-5.65); Red Cell Distribution Width 13.4 % (12.1-15.1); White Blood Count 14.61 10^3/uL (3.29-11.43)
[2023-11-06 04:37] LABS: Anion Gap 14.1 (5-19); Blood Urea Nitrogen 33 mg/dL (8-23); Calcium 9.1 mg/dL (8.5-10.5); Carbon Dioxide 35 mmol/L (22-29); Chloride 97 mmol/L (98-107); Glucose 249 mg/dL (65-115); Magnesium 2.3 mg/dL (1.7-2.3); Osmolality Calculated 312 mOsm/kg (285-295); Potassium 3.1 mmol/L (3.5-5.1); Sodium 143 mmol/L (136-145)
[2023-11-06] MEDS: budesonide 0.5 mg/2 mL Neb INHALATION ×2 (07:45→19:58)
[2023-11-06] MEDS: acetaZOLAMIDE 250 mg Tablet PO (08:03)
[2023-11-06] MEDS: rivaroxaban 10 mg Tablet 20 MG PO (08:03)
[2023-11-06] MEDS: doxycycline 100 mg Tablet PO ×2 (08:03→16:31)
[2023-11-06] MEDS: predniSONE 20 mg Tablet 40 MG PO (08:03)
[2023-11-06] MEDS: FUROsemide 40 mg Tablet PO ×2 (08:04→14:41)
[2023-11-06] MEDS: docusate sodium 100 mg Capsule PO ×2 (08:04→16:31)
[2023-11-06] MEDS: cefTRIAXone 1,000 MG in sodium chloride 0.9% (plus) 50 ML 100 MG IV (08:04)
[2023-11-06] MEDS: pantoprazole DR 40 mg Tablet PO (08:04)
[2023-11-06] MEDS: lidocaine 1% 5 ML in potassium chloride premix 100 ML 26.25 ML IV (10:01)
[2023-11-06] MEDS: dilTIAZem ER (24HR) 240 mg Capsule PO (10:03)
--- NOTE | 2023-11-06 11:07 | CTR_ITS ---
PROCEDURE INFORMATION: Exam: CT Chest Without Contrast; Diagnostic Exam date and time: 11/06/2023 12:19 PM Age: 88 years old Clinical indication: Shortness of breath; Prior surgery; Surgery date: 6+ months; Surgery type: Back; Patient HX: Loop recorder; Additional info: SOB TECHNIQUE: Imaging protocol: Diagnostic computed tomography of the chest without contrast. Radiation optimization: All CT scans at this facility use at least one of these dose optimization techniques: automated exposure control; mA and/or kV adjustment per patient size (includes targeted exams where dose is matched to clinical indication); or iterative reconstruction. REPORTING DATA: Count of CT and Cardiac NM exams in prior 12 months: This patient has received 4 known CTs and 0 known cardiac nuclear medicine studies in the 12 months prior to the current study. COMPARISON: CT chest wo con [id number] 04/22/2023 10:38 PM RADIATION DOSE METRICS: Total DLP (mGy-cm): 424.62 FINDINGS: Lungs: Multifocal patchy ground-glass opacities worst in the lower lobes. 1.5 cm left lower lobe nodule previously discussed is unchanged (series 5, image 30). Pleural spaces: Small right and trace left pleural effusions Heart: coronary calcifications. No pericardial effusion. Lymph nodes: No enlarged lymph nodes. Vasculature: No aortic aneurysm. Partially visualized IVC filter. Bones/joints: No acute findings Soft tissues: Unchanged right thyroid nodules. Unchanged small left adrenal nodule. CT/CT chest wo con [id number] IMPRESSION: Multifocal opacities likely infectious/inflammatory. Unchanged 1.5 cm left lower lobe nodule. Small right and trace left pleural effusions COMMENTS: For patients with an IVC filter, recommend assessment for a management plan for the patient's IVC filter. If there is no established management plan, recommend referral to an interventional clinician on a nonemergent basis for evaluation.
[2023-11-06] MEDS: polyethylene glycol 3350 Pkt 17 gm PO (14:27)
--- NOTE | 2023-11-06 16:10 | P.PN_ITS ---
Subjective 2 Subjective: Patient was seen this morning, continues to complain of wheezing, shortness of breath she has not had a bowel movement during the hospitalization Vitals/I&O/Wt Last Vital Signs Temp 98.0 F 11/06/23 11:42 Pulse 105 H 11/06/23 13:13 Resp 15 11/06/23 11:42 BP 148/92 11/06/23 11:42 Pulse Ox 92 11/06/23 11:42 O2 Del Method Nasal Cannula 11/06/23 11:42 O2 Flow Rate 2 11/06/23 11:42 FiO2 35 11/04/23 23:38 11/06/23 11/06/23 11/06/23 06:59 14:59 22:59 Intake Total 240 / 240 Output Total 750 / 1750 Balance -750 / -740 240 / 240 Weight last 48 hrs Weight 78.426 kg Weight 76.771 kg Physical Exam 2 Const: COMMON NORMALS: no acute distress and patient oriented x3 Resp: COMMON NORMALS: normal respiratory effort, No retractions and No use of accessory muscles AUSCULTATION: wheezes Cardio: COMMON NORMALS: regular rate, regular rhythm, S1 normal heart sound present and S2 normal heart sound present RATE: regular rate RHYTHM: r egular rhythm HEART SOUNDS: S1 normal heart sound present and S2 normal heart sound present GI: COMMON NORMALS: Normal to inspection, nondistended, normoactive bowel sounds present, Soft to palpation and non-tender PALPATION: Yes Soft to palpation Extremity: COMMON NORMALS: no pedal edema Neuro: COMMON NORMALS: patient oriented x3 Psych: COMMON NORMALS: mental status grossly normal Urinary Catheter Management: Long: Cath Placed During This Visit: yes, but has since been removed by the nurse Reason for Continuing Indwelling Catheter: Decision to DC Catheter Urinary Catheter Date of Insertion: 11/03/23 Urinary Catheter Time of Insertion: 00:06 Date Urinary Catheter Removed: 11/06/23 Time Urinary Catheter Discontinued: 06:25 Data 11/06/23 03:17 11/06/23 03:17 Micro: Microbiology 11/02/23 23:02 Blood Culture - Preliminary Blood 11/02/23 22:58 Blood Culture - Preliminary Blood A&P Assessment and plan (1) Diastolic heart failure: Patient presents with evidence of acute diastolic heart failure On Lasix 40 twice daily Monitor renal function closely assisted renal toxic medication with BMP daily. Last echo demonstrated pulmonary hypertension, tricuspid regurgitation. Continue to monitor for improvement and weaning of oxygen CBC daily, BMP, magnesium daily (2) Atrial fibrillation: Patient presented with atrial fibrillation with rapid ventricular rate. This may be secondary to respiratory failure or heart failure. It does not necessarily mean failure of current medical treatment Changed to extended release diltiazem. Currently heart rate controlled Past experience with metoprolol demonstrated bradycardia. She is trying to avoid this currently but this may need to be added back. Anticoagulation with Xarelto (3) Chronic respiratory failure with hypoxia and hypercapnia: Patient with history of chronic respiratory failure with hypoxemia and hypercapnia She has acute exacerbation of COPD currently She has fairly significant amount of hypoxia, and we will try to wean oxygen as tolerated Continue trilogy at night Currently on p.o. steroids Continues to have wheezing, add CT of the chest, is on doxycycline, Rocephin will consider broadening antibiotic coverage based on clinical progress DuoNeb every 4 hours, budesonide twice daily Continue acetazolamide, to prevent severe metabolic alkalosis and more CO2 retention Rapid COVID-negative on October 30. Secondary to length of illness, repeating COVID PCR will be useful at this time. (4) History of pulmonary embolism: Continue patient's home Xarelto Plan Other medical problems as outlined in past medical history DNR Xarelto will suffice for DVT prophylaxis, Discharge bowel regimen Attestations 2 Medical Necessity Statement*: Patient requires hospitalization for shortness of breath, wheezing Diagnoses Diastolic heart failure I50.30 Atrial fibrillation I48.91 Chronic respiratory failure with hypoxia and hypercapnia J96.11; J96.12 History of pulmonary embolism Z86.711
[2023-11-06] MEDS: ondansetron 2 mg/ML SDV 2 mL 4 MG IVP (18:46)
--- NOTE | 2023-11-06 20:49 | ECG_ITS ---
[facility] Test Date: 2023-11-06 Pat Name: Maria Teresa Woodruff Department: Room: 268 Gender: Female Physician Practice Market Manager: : 1935 Requested By: Jose Julien Order Number: [id number] Reading MD: Brayan Cotto M.D. Measurements Intervals [place] Rate: 138 P: 0 GA: 0 QRS: 21 QRSD: 90 T: -79 QT: 275 QTc: 417 Interpretive Statements ATRIAL FIBRILLATION WITH RAPID VENTRICULAR RESPONSE MINIMAL VOLTAGE CRITERIA FOR LVH, CONSIDER NORMAL VARIANT [MEETS CRITERIA IN ONE OF: R(aVL), S(V1), R(V5), R(V5/V6)+S(V1)] NONSPECIFIC ST & T-WAVE ABNORMALITY Compared to ECG 11/02/2023 22:16:40 T-wave abnormality now present ST (T wave) deviation no longer present Electronically Signed On 11-07-2023 10:18:39 OFFICE SERVICES REPRESENTATIVE by Brayan Cotto M.D. [id number]
[2023-11-06] MEDS: metoclopramide 5 mg/mL SDV 2 mL IVP (21:07)
[2023-11-06] MEDS: LORazepam 0.5 mg Tablet 0.25 MG PO (21:12)
[2023-11-06] MEDS: gabapentin 100 mg Capsule 200 MG PO (21:12)
[2023-11-06] MEDS: atorvastatin 40 mg Tablet PO (21:12)
[2023-11-06] MEDS: dilTIAZem 60 mg Tablet 90 MG PO (22:04)
[2023-11-07] VITALS (15 sets, daily range): BP systolic 105–135; BP diastolic 53–81; PULSE 56–120; RESP 16–18; TEMP 36.3–36.8; O2SAT 92–96
[2023-11-07] MEDS: dilTIAZem 60 mg Tablet 90 MG PO ×4 (02:36→20:58)
[2023-11-07 03:00] LABS: Basophils % 0.3 %; Hematocrit 49.5 % (36-47); Lymphocytes # 0.9 10^3/uL (0.8-4.8); Lymphocytes % 7.1 %; Mean Corpuscular HGB Conc 29.7 g/dL (30-55); Mean Corpuscular Hemoglobin 30.8 pg (27-33); Mean Corpuscular Volume 103.6 fl (85-98); Mean Platelet Volume 9.5 fL (7.4-10.4); Monocytes # 0.9 10^3/uL (0.2-0.9); Monocytes % 6.8 %; Neutrophils # 10.72 10^3/uL (1.8-7.7); Neutrophils % 84.2 %; Nucleated Red Blood Cells % 0 %; Platelet Count 219 10^3/cmm (157-399); Red Blood Count 4.78 10^6/uL (3.85-5.65); Red Cell Distribution Width 13.2 % (12.1-15.1); White Blood Count 12.73 10^3/uL (3.29-11.43)
[2023-11-07] MEDS: ipratropium-albuterol 3 mL Neb INHALATION ×5 (03:10→19:52)
[2023-11-07 03:29] LABS: Alanine Aminotransferase 18 U/L (0-33); Albumin Level 3.4 g/dL (3.5-5.2); Alkaline Phosphatase 162 U/L (35-105); Anion Gap 11.7 (5-19); Aspartate Amino Transferase 19 U/L (0-32); Blood Urea Nitrogen 32 mg/dL (8-23); C Reactive Protein 22.5 mg/L (0.0-4.9); Carbon Dioxide 38 mmol/L (22-29); Chloride 97 mmol/L (98-107); Globulin 2.4 g/dL (1.3-4.6); Glucose 151 mg/dL (65-115); Magnesium 2.1 mg/dL (1.7-2.3); Osmolality Calculated 306 mOsm/kg (285-295); Phosphorus 3.2 mg/dL (2.5-4.5); Potassium 3.7 mmol/L (3.5-5.1); Sodium 143 mmol/L (136-145); Total Bilirubin 0.5 mg/dL (0.15-1.2); Total Protein 5.8 g/dL (6.6-8.7)
[2023-11-07 03:30] LABS: NT Pro B Type Natriuretic Pept 2019 pg/mL (0-450)
[2023-11-07] MEDS: budesonide 0.5 mg/2 mL Neb INHALATION ×2 (07:10→19:52)
[2023-11-07] MEDS: rivaroxaban 10 mg Tablet 20 MG PO (08:16)
[2023-11-07] MEDS: docusate sodium 100 mg Capsule PO ×2 (08:16→17:41)
[2023-11-07] MEDS: pantoprazole DR 40 mg Tablet PO (08:17)
[2023-11-07] MEDS: doxycycline 100 mg Tablet PO (08:17)
[2023-11-07] MEDS: predniSONE 20 mg Tablet 40 MG PO (08:17)
[2023-11-07] MEDS: cefTRIAXone 1,000 MG in sodium chloride 0.9% (plus) 50 ML 100 MG IV (08:20)
[2023-11-07] MEDS: FUROsemide 40 mg Tablet PO (08:22)
[2023-11-07] MEDS: cefepime 1,000 MG in sodium chloride 0.9% (plus) 50 ML 100 MG IV ×2 (10:54→21:00)
[2023-11-07] MEDS: potassium chloride ER 20 mEq Tablet 40 MEQ PO (10:54)
[2023-11-07] MEDS: FUROsemide 10 mg/mL SDV 4mL 40 MG IVP (10:54)
[2023-11-07] MEDS: vancomycin 1,250 MG/250 ML PIGGYBACK 250 MG IV (11:37)
[2023-11-07 13:00] LABS: Adenovirus Not Detected (NOT DETECT); Chlamydia Pneumoniae Not Detected (NOT DETECT); Coronavirus 229E,HKU1,NL63,OC4 Not Detected (NOT DETECT); Human Metapneumovirus Not Detected (NOT DETECT); Human Rhinovirus/Enterovirus Not Detected (NOT DETECT); Influenza A Not Detected (NOT DETECT); Influenza A H1 Not Detected (NOT DETECT); Influenza A H1-2009 Not Detected (NOT DETECT); Influenza A H3 Not Detected (NOT DETECT); Influenza B Not Detected (NOT DETECT); Mycoplasma Pneumoniae Not Detected (NOT DETECT); Parainfluenza Virus Type 1 Not Detected (NOT DETECT); Parainfluenza Virus Type 2 Not Detected (NOT DETECT); Parainfluenza Virus Type 3 Not Detected (NOT DETECT); Parainfluenza Virus Type 4 Not Detected (NOT DETECT); Respiratory Syncytial Virus B Not Detected (NOT DETECT); SARS-COV-2 Not Detected (NOT DETECT)
[2023-11-07 13:06] LABS: Respiratory Syncytial Virus A Detected (NOT DETECT)
--- NOTE | 2023-11-07 13:27 | P.PN_ITS ---
Subjective 2 Subjective: Patient had episodes of A-fib with RVR during the night, requiring Cardizem and increased dose of Cardizem, currently heart rates are well-controlled she continues to complain of wheezing and shortness of breath, no chest pain Vitals/I&O/Wt Last Vital Signs Temp 98.0 F 11/07/23 11:59 Pulse 81 11/07/23 11:59 Resp 18 11/07/23 11:59 BP 113/70 11/07/23 11:59 Pulse Ox 92 11/07/23 11:59 O2 Del Method Room Air 11/07/23 11:59 O2 Flow Rate 2 11/07/23 11:20 FiO2 35 11/04/23 23:38 11/06/23 11/07/23 11/07/23 22:59 06:59 14:59 Intake Total 395 / 635 950 / 950 Balance 395 / 635 950 / 950 Weight last 48 hrs Weight 75.863 kg Weight 78.426 kg Physical Exam 2 Const: COMMON NORMALS: no acute distress and patient oriented x3 Resp: COMMON NORMALS: normal respiratory effort, No retractions and No use of accessory muscles AUSCULTATION: wheezes Cardio: COMMON NORMALS: regular rate, S1 normal heart sound present and S2 normal heart sound present RATE: regular rate RHYTHM: abnormal rhythm H EART SOUNDS: S1 normal heart sound present and S2 normal heart sound present GI: COMMON NORMALS: Normal to inspection, nondistended, normoactive bowel sounds present and non-tender Extremity: COMMON NORMALS: no pedal edema Neuro: COMMON NORMALS: patient oriented x3 Psych: COMMON NORMALS: mental status grossly normal Urinary Catheter Management: Long: Cath Placed During This Visit: yes, but has since been removed by the nurse Reason for Continuing Indwelling Catheter: Decision to DC Catheter Urinary Catheter Date of Insertion: 11/03/23 Urinary Catheter Time of Insertion: 00:06 Date Urinary Catheter Removed: 11/06/23 Time Urinary Catheter Discontinued: 06:25 Data 11/07/23 02:19 11/07/23 02:19 A&P Assessment and plan (1) Diastolic heart failure: Patient presents with evidence of acute diastolic heart failure 1 dose of IV Lasix today Monitor renal function closely assisted renal toxic medication with BMP daily. Last echo demonstrated pulmonary hypertension, tricuspid regurgitation. Continue to monitor for improvement and weaning of oxygen CBC daily, BMP, magnesium daily (2) Atrial fibrillation: Patient presented with atrial fibrillation with rapid ventricular rate. This may be secondary to respiratory failure or heart failure. It does not necessarily mean failure of current medical treatment Changed to extended release diltiazem. Currently heart rate controlled Past experience with metoprolol demonstrated bradycardia. She is trying to avoid this currently but this may need to be added back. Anticoagulation with Xarelto Increase Cardizem to 90 every 6 hours (3) Chronic respiratory failure with hypoxia and hypercapnia: Patient with history of chronic respiratory failure with hypoxemia and hypercapnia She has acute exacerbation of COPD currently She has fairly significant amount of hypoxia, and we will try to wean oxygen as tolerated Continue trilogy at night Currently on p.o. steroids Continues to have wheezing CT of the chest shows multifocal opacities, likely infectious/inflammatory worse in the lower lobes Broaden antibiotic coverage to vancomycin, cefepime Order respiratory viral panel DuoNeb every 4 hours, budesonide twice daily Continue acetazolamide, to prevent severe metabolic alkalosis and more CO2 retention Rapid COVID-negative on October 30. Secondary to length of illness, repeating COVID PCR will be useful at this time. (4) History of pulmonary embolism: Continue patient's home Xarelto (5) Multifocal pneumonia: ? Follow respiratory viral panel ?follow blood cultures ?follow sputum cultures, ? Antibiotic coverage broadened to continue vancomycin, cefepime Plan Other medical problems as outlined in past medical history DNR Xarelto will suffice for DVT prophylaxis, Discharge bowel regimen Attestations 2 Medical Necessity Statement*: Patient requires hospitalization for pneumonia Diagnoses Diastolic heart failure I50.30 Atrial fibrillation I48.91 Chronic respiratory failure with hypoxia and hypercapnia J96.11; J96.12 History of pulmonary embolism Z86.711 Multifocal pneumonia J18.9
[2023-11-07] MEDS: gabapentin 100 mg Capsule 200 MG PO (20:58)
[2023-11-07] MEDS: atorvastatin 40 mg Tablet PO (20:59)
[2023-11-07] MEDS: HYDROcodone-acetaminophen 5-325 mg Tablet 1 TAB PO (21:06)
[2023-11-08] VITALS (16 sets, daily range): BP systolic 112–157; BP diastolic 44–83; PULSE 63–119; RESP 16–18; TEMP 36.1–36.9; O2SAT 94–97
[2023-11-08] MEDS: ipratropium-albuterol 3 mL Neb INHALATION ×6 (00:26→21:34)
[2023-11-08] MEDS: dilTIAZem 60 mg Tablet 90 MG PO ×4 (02:27→20:02)
[2023-11-08] MEDS: LORazepam 0.5 mg Tablet 0.25 MG PO (02:30)
[2023-11-08 03:03] LABS: Basophils # 0.1 10^3/uL (0.0-0.1); Basophils % 0.4 %; Hematocrit 46.3 % (36-47); Lymphocytes # 1.2 10^3/uL (0.8-4.8); Lymphocytes % 10.4 %; Mean Corpuscular HGB Conc 29.6 g/dL (30-55); Mean Corpuscular Hemoglobin 30.2 pg (27-33); Mean Corpuscular Volume 102.2 fl (85-98); Mean Platelet Volume 9.6 fL (7.4-10.4); Monocytes # 0.9 10^3/uL (0.2-0.9); Monocytes % 7.9 %; Neutrophils # 8.99 10^3/uL (1.8-7.7); Neutrophils % 77.7 %; Nucleated Red Blood Cells % 0 %; Platelet Count 221 10^3/cmm (157-399); Red Blood Count 4.53 10^6/uL (3.85-5.65); Red Cell Distribution Width 13.2 % (12.1-15.1); White Blood Count 11.58 10^3/uL (3.29-11.43)
[2023-11-08 03:31] LABS: Alanine Aminotransferase 18 U/L (0-33); Alkaline Phosphatase 132 U/L (35-105); Aspartate Amino Transferase 18 U/L (0-32); Blood Urea Nitrogen 36 mg/dL (8-23); C Reactive Protein 13.3 mg/L (0.0-4.9); Calcium 8.8 mg/dL (8.5-10.5); Carbon Dioxide 35 mmol/L (22-29); Chloride 100 mmol/L (98-107); Globulin 2.9 g/dL (1.3-4.6); Glucose 209 mg/dL (65-115); Magnesium 2.1 mg/dL (1.7-2.3); NT Pro B Type Natriuretic Pept 1049 pg/mL (0-450); Osmolality Calculated 310 mOsm/kg (285-295); Sodium 143 mmol/L (136-145); Total Bilirubin 0.4 mg/dL (0.15-1.2); Total Protein 5.9 g/dL (6.6-8.7)
[2023-11-08] MEDS: budesonide 0.5 mg/2 mL Neb INHALATION ×2 (08:31→21:34)
[2023-11-08] MEDS: pantoprazole DR 40 mg Tablet PO (09:08)
[2023-11-08] MEDS: cefepime 1,000 MG in sodium chloride 0.9% (plus) 50 ML 100 MG IV ×2 (09:09→22:03)
[2023-11-08] MEDS: rivaroxaban 10 mg Tablet 20 MG PO (09:09)
[2023-11-08] MEDS: docusate sodium 100 mg Capsule PO ×2 (09:09→17:54)
[2023-11-08] MEDS: polyethylene glycol 3350 Pkt 17 gm PO (09:09)
[2023-11-08] MEDS: predniSONE 20 mg Tablet 40 MG PO (09:09)
[2023-11-08] MEDS: vancomycin 1,250 MG/250 ML PIGGYBACK 250 MG IV (09:57)
--- NOTE | 2023-11-08 10:53 | PC.SOCIAL ---
IMM Update Pg. 2 of IMM updated and reviewed with patient who verbalized understanding. Copy provided. Copy placed in chart.
--- NOTE | 2023-11-08 14:07 | P.PN_ITS ---
Subjective 2 Subjective: Patient was seen this morning, she continues to have wheezing, we discussed her CAT scan findings she is RSV positive, we will have to continue to monitor as inpatient as she is on 2 L continues to have diffuse wheezing, no chest pain, no active respiratory distress, but continues to have wheezing, we discussed giving her IV Lasix, her BNP is trending downwards, but she continues to complain of shortness of breath with exertion, I broaden her antibiotic coverage monitoring her cultures, Vitals/I&O/Wt Last Vital Signs Temp 98.4 F 11/08/23 13:00 Pulse 94 11/08/23 13:00 Resp 18 11/08/23 13:00 BP 132/68 11/08/23 13:00 Pulse Ox 94 11/08/23 13:00 O2 Del Method Nasal Cannula 11/08/23 13:00 O2 Flow Rate 2 11/08/23 11:15 FiO2 35 11/04/23 23:38 11/07/23 11/08/23 11/08/23 22:59 06:59 14:59 Intake Total 170 / 1120 540 / 540 Output Total 1000 / 1000 Balance 170 / 1120 -1000 / 120 540 / 540 Weight last 48 hrs Weight 75.863 kg Physical Exam 2 Const: COMMON NORMALS: no acute distress and patient oriented x3 Resp: COMMON NORMALS: normal respiratory effort, No retractions and No use of accessory muscles AUSCULTATION: crackles and wheezes Cardio: COMMON NORMALS: regular rate, regular rhythm, S1 normal heart sound present and S2 normal heart sound present RATE: regular rate RHYTHM: r egular rhythm HEART SOUNDS: S1 normal heart sound present and S2 normal heart sound present GI: COMMON NORMALS: Normal to inspection, nondistended, normoactive bowel sounds present and non-tender Extremity: COMMON NORMALS: no pedal edema Neuro: COMMON NORMALS: patient oriented x3 Psych: COMMON NORMALS: mental status grossly normal Urinary Catheter Management: Long: Cath Placed During This Visit: yes, but has since been removed by the nurse Reason for Continuing Indwelling Catheter: Decision to DC Catheter Urinary Catheter Date of Insertion: 11/03/23 Urinary Catheter Time of Insertion: 00:06 Date Urinary Catheter Removed: 11/06/23 Time Urinary Catheter Discontinued: 06:25 Data 11/08/23 02:19 11/08/23 02:19 A&P Assessment and plan (1) Diastolic heart failure: Patient presents with evidence of acute diastolic heart failure 1 dose of IV Lasix today Monitor renal function closely assisted renal toxic medication with BMP daily. Last echo demonstrated pulmonary hypertension, tricuspid regurgitation. Continue to monitor for improvement and weaning of oxygen CBC daily, BMP, magnesium daily (2) Atrial fibrillation: Patient presented with atrial fibrillation with rapid ventricular rate. This may be secondary to respiratory failure or heart failure. It does not necessarily mean failure of current medical treatment Changed to extended release diltiazem. Currently heart rate controlled Past experience with metoprolol demonstrated bradycardia. She is trying to avoid this currently but this may need to be added back. Anticoagulation with Xarelto Increase Cardizem to 90 every 6 hours (3) Chronic respiratory failure with hypoxia and hypercapnia: Patient with history of chronic respiratory failure with hypoxemia and hypercapnia She has acute exacerbation of COPD, with multifocal pneumonia, with RSV pneumonia She has fairly significant amount of hypoxia, and we will try to wean oxygen as tolerated Continue trilogy at night Currently on p.o. steroids Continue broad-spectrum , failed Rocephin and doxycycline thus antibiotic coverage was broadened Continues to have wheezing CT of the chest shows multifocal opacities, likely infectious/inflammatory worse in the lower lobes Broaden antibiotic coverage to vancomycin, cefepime RSV positive DuoNeb every 4 hours, budesonide twice daily Rapid COVID-negative on October 30. Secondary to length of illness, repeating COVID PCR will be useful at this time. (4) History of pulmonary embolism: Continue patient's home Xarelto (5) Multifocal pneumonia: ? RSV positive, component of bacterial pneumonia ?follow blood cultures ?follow sputum cultures, ? Antibiotic coverage broadened to continue vancomycin, cefepime (6) RSV (respiratory syncytial virus pneumonia): Plan Other medical problems as outlined in past medical history DNR Xarelto will suffice for DVT prophylaxis, Discharge bowel regimen Attestations 2 Medical Necessity Statement*: Patient requires hospitalization for multifocal pneumonia, RSV pneumonia, fluid overload, Diagnoses Diastolic heart failure I50.30 Atrial fibrillation I48.91 Chronic respiratory failure with hypoxia and hypercapnia J96.11; J96.12 History of pulmonary embolism Z86.711 Multifocal pneumonia J18.9 RSV (respiratory syncytial virus pneumonia) J12.1
[2023-11-08] MEDS: FUROsemide 10 mg/mL SDV 4mL 40 MG IVP (14:32)
[2023-11-08] MEDS: gabapentin 100 mg Capsule 200 MG PO (20:02)
[2023-11-08] MEDS: atorvastatin 40 mg Tablet PO (20:02)
[2023-11-09] VITALS (13 sets, daily range): BP systolic 134–152; BP diastolic 68–81; PULSE 69–104; RESP 14–22; TEMP 36.3–36.8; O2SAT 94–98; BMI 29.0
[2023-11-09] MEDS: ipratropium-albuterol 3 mL Neb INHALATION ×5 (00:59→20:11)
[2023-11-09] MEDS: HYDROcodone-acetaminophen 5-325 mg Tablet 1 TAB PO (02:49)
[2023-11-09] MEDS: dilTIAZem 60 mg Tablet 90 MG PO (02:49)
[2023-11-09 06:27] LABS: Basophils % 0.3 %; Eosinophils % 0.1 %; Hematocrit 47.2 % (36-47); Lymphocytes # 1.4 10^3/uL (0.8-4.8); Lymphocytes % 9.9 %; Mean Corpuscular HGB Conc 30.1 g/dL (30-55); Mean Corpuscular Hemoglobin 30.4 pg (27-33); Mean Corpuscular Volume 101.1 fl (85-98); Mean Platelet Volume 9.5 fL (7.4-10.4); Monocytes # 0.9 10^3/uL (0.2-0.9); Monocytes % 6.5 %; Neutrophils # 11.51 10^3/uL (1.8-7.7); Neutrophils % 80.1 %; Nucleated Red Blood Cells % 0 %; Platelet Count 237 10^3/cmm (157-399); Red Blood Count 4.67 10^6/uL (3.85-5.65); Red Cell Distribution Width 13.1 % (12.1-15.1); White Blood Count 14.36 10^3/uL (3.29-11.43)
[2023-11-09 06:40] LABS: Alanine Aminotransferase 15 U/L (0-33); Alkaline Phosphatase 136 U/L (35-105); Anion Gap 9.6 (5-19); Aspartate Amino Transferase 17 U/L (0-32); Blood Urea Nitrogen 34 mg/dL (8-23); C Reactive Protein 7.3 mg/L (0.0-4.9); Calcium 9.4 mg/dL (8.5-10.5); Carbon Dioxide 38 mmol/L (22-29); Chloride 97 mmol/L (98-107); Globulin 2.9 g/dL (1.3-4.6); Glucose 155 mg/dL (65-115); Magnesium 2.1 mg/dL (1.7-2.3); Osmolality Calculated 301 mOsm/kg (285-295); Phosphorus 2.3 mg/dL (2.5-4.5); Potassium 4.6 mmol/L (3.5-5.1); Sodium 140 mmol/L (136-145); Total Bilirubin 0.4 mg/dL (0.15-1.2); Total Protein 5.9 g/dL (6.6-8.7)
[2023-11-09 06:53] LABS: NT Pro B Type Natriuretic Pept 584 pg/mL (0-450)
[2023-11-09] MEDS: budesonide 0.5 mg/2 mL Neb INHALATION ×2 (08:26→20:11)
[2023-11-09] MEDS: docusate sodium 100 mg Capsule PO ×2 (08:53→17:57)
[2023-11-09] MEDS: pantoprazole DR 40 mg Tablet PO (08:53)
[2023-11-09] MEDS: rivaroxaban 10 mg Tablet 20 MG PO (08:53)
[2023-11-09] MEDS: polyethylene glycol 3350 Pkt 17 gm PO (08:53)
[2023-11-09] MEDS: FUROsemide 40 mg Tablet PO ×2 (08:53→16:55)
[2023-11-09] MEDS: predniSONE 20 mg Tablet 40 MG PO (08:53)
[2023-11-09] MEDS: cefepime 1,000 MG in sodium chloride 0.9% (plus) 50 ML 100 MG IV ×2 (10:30→22:06)
[2023-11-09] MEDS: LORazepam 0.5 mg Tablet 0.25 MG PO ×2 (10:30→20:30)
[2023-11-09] MEDS: dilTIAZem 30 mg Tablet 90 MG PO ×3 (10:45→22:05)
[2023-11-09] MEDS: vancomycin 1,250 MG/250 ML PIGGYBACK 250 MG IV (11:40)
[2023-11-09] MEDS: methylPREDNISolone sod succ 125 mg/2 mL INJ IVP (12:38)
--- NOTE | 2023-11-09 17:04 | P.PN_ITS ---
Subjective 2 Subjective: Patient was seen this morning, denies any fevers, no chills, continues to feel weak, continues to have diffuse wheezing, she is a bit frustrated about her persistent wheezing and shortness of breath Vitals/I&O/Wt Last Vital Signs Temp 98.2 F 11/09/23 16:00 Pulse 82 11/09/23 16:39 Resp 22 H 11/09/23 16:39 BP 148/72 11/09/23 16:00 Pulse Ox 95 11/09/23 16:39 O2 Del Method Nasal Cannula 11/09/23 16:39 O2 Flow Rate 2 11/09/23 16:39 FiO2 35 11/04/23 23:38 11/09/23 11/09/23 11/09/23 06:59 14:59 22:59 Intake Total 240 / 1430 900 / 900 Balance 240 / 1030 900 / 900 Weight last 48 hrs Weight 76.702 kg Physical Exam 2 Const: COMMON NORMALS: no acute distress and patient oriented x3 Resp: COMMON NORMALS: normal respiratory effort, No retractions and No use of accessory muscles AUSCULTATION: crackles and wheezes Cardio: COMMON NORMALS: regular rate, regular rhythm, S1 normal heart sound present and S2 normal heart sound present RATE: regular rate RHYTHM: r egular rhythm HEART SOUNDS: S1 normal heart sound present and S2 normal heart sound present GI: COMMON NORMALS: Normal to inspection, nondistended, normoactive bowel sounds present and non-tender Extremity: COMMON NORMALS: no pedal edema Neuro: COMMON NORMALS: patient oriented x3 Psych: COMMON NORMALS: mental status grossly normal Urinary Catheter Management: Long: Cath Placed During This Visit: yes, but has since been removed by the nurse Reason for Continuing Indwelling Catheter: Decision to DC Catheter Urinary Catheter Date of Insertion: 11/03/23 Urinary Catheter Time of Insertion: 00:06 Date Urinary Catheter Removed: 11/06/23 Time Urinary Catheter Discontinued: 06:25 Data 11/09/23 05:54 11/09/23 05:54 Micro: Microbiology 11/02/23 23:02 Blood Culture - Final Blood 11/02/23 22:58 Blood Culture - Final Blood A&P Assessment and plan (1) Diastolic heart failure: Patient presents with evidence of acute diastolic heart failure Continue Lasix 40 mg p.o. daily Monitor renal function closely assisted renal toxic medication with BMP daily. Last echo demonstrated pulmonary hypertension, tricuspid regurgitation. Continue to monitor for improvement and weaning of oxygen CBC daily, BMP, magnesium daily (2) Atrial fibrillation: Patient presented with atrial fibrillation with rapid ventricular rate. This may be secondary to respiratory failure or heart failure. It does not necessarily mean failure of current medical treatment Changed to extended release diltiazem. Currently heart rate controlled Past experience with metoprolol demonstrated bradycardia. She is trying to avoid this currently but this may need to be added back. Anticoagulation with Xarelto Increase Cardizem to 90 every 6 hours (3) Chronic respiratory failure with hypoxia and hypercapnia: Patient with history of chronic respiratory failure with hypoxemia and hypercapnia She has acute exacerbation of COPD, with multifocal pneumonia, with RSV pneumonia She has fairly significant amount of hypoxia, and we will try to wean oxygen as tolerated Continue trilogy at night 1 dose of IV Lasix today Continue broad-spectrum , failed Rocephin and doxycycline thus antibiotic coverage was broadened Continues to have wheezing CT of the chest shows multifocal opacities, likely infectious/inflammatory worse in the lower lobes Broaden antibiotic coverage to vancomycin, cefepime RSV positive DuoNeb every 4 hours, budesonide twice daily Rapid COVID-negative on October 30. Secondary to length of illness, repeating COVID PCR will be useful at this time. (4) History of pulmonary embolism: Continue patient's home Xarelto (5) Multifocal pneumonia: ? RSV positive, component of bacterial pneumonia ?follow blood cultures ?follow sputum cultures, ? Antibiotic coverage broadened to continue vancomycin, cefepime (6) RSV (respiratory syncytial virus pneumonia): Plan Other medical problems as outlined in past medical history DNR Xarelto will suffice for DVT prophylaxis, Discharge bowel regimen Patient has persistent wheezing today continue IV antibiotics, will give 1 dose of IV steroids, she looks euvolemic, BNP trending downwards Attestations 2 Medical Necessity Statement*: Patient requires hospitalization for multifocal pneumonia, RSV pneumonia, respiratory failure Diagnoses Diastolic heart failure I50.30 Atrial fibrillation I48.91 Chronic respiratory failure with hypoxia and hypercapnia J96.11; J96.12 History of pulmonary embolism Z86.711 Multifocal pneumonia J18.9 RSV (respiratory syncytial virus pneumonia) J12.1
[2023-11-09] MEDS: gabapentin 100 mg Capsule 200 MG PO (20:30)
[2023-11-09] MEDS: atorvastatin 40 mg Tablet PO (20:30)
[2023-11-10] VITALS (13 sets, daily range): BP systolic 128–163; BP diastolic 66–90; PULSE 68–103; RESP 15–20; TEMP 36.3–36.8; O2SAT 90–99
[2023-11-10] MEDS: ipratropium-albuterol 3 mL Neb INHALATION ×3 (00:29→15:27)
--- NOTE | 2023-11-10 04:09 | PC.NURSE ---
Assumed care of patient at 400 from NADYA Alas
[2023-11-10] MEDS: dilTIAZem 30 mg Tablet 90 MG PO ×3 (04:20→17:26)
[2023-11-10] MEDS: acetaminophen 325 mg Tablet 650 MG PO (04:23)
[2023-11-10] MEDS: LORazepam 0.5 mg Tablet 0.25 MG PO ×2 (05:08→20:04)
[2023-11-10 08:25] LABS: Basophils % 0.2 %; Hematocrit 45.6 % (36-47); Lymphocytes # 0.7 10^3/uL (0.8-4.8); Lymphocytes % 4.6 %; Mean Corpuscular HGB Conc 31.1 g/dL (30-55); Mean Corpuscular Hemoglobin 30.5 pg (27-33); Mean Corpuscular Volume 97.9 fl (85-98); Mean Platelet Volume 9.3 fL (7.4-10.4); Monocytes # 0.3 10^3/uL (0.2-0.9); Monocytes % 2.2 %; Neutrophils # 13.47 10^3/uL (1.8-7.7); Neutrophils % 90.9 %; Nucleated Red Blood Cells % 0 %; Platelet Count 235 10^3/cmm (157-399); Red Blood Count 4.66 10^6/uL (3.85-5.65); Red Cell Distribution Width 12.8 % (12.1-15.1); White Blood Count 14.81 10^3/uL (3.29-11.43)
[2023-11-10] MEDS: phenol oral Spray 177 mL 3 SPRAY MUCOUS MEM ×2 (08:27→20:05)
[2023-11-10] MEDS: docusate sodium 100 mg Capsule PO ×2 (08:27→17:26)
[2023-11-10] MEDS: FUROsemide 40 mg Tablet PO ×2 (08:27→17:26)
[2023-11-10] MEDS: polyethylene glycol 3350 Pkt 17 gm PO (08:27)
[2023-11-10] MEDS: rivaroxaban 10 mg Tablet 20 MG PO (08:27)
[2023-11-10] MEDS: pantoprazole DR 40 mg Tablet PO (08:27)
[2023-11-10 08:50] LABS: Alanine Aminotransferase 17 U/L (0-33); Albumin Level 3.1 g/dL (3.5-5.2); Alkaline Phosphatase 137 U/L (35-105); Anion Gap 13.2 (5-19); Aspartate Amino Transferase 15 U/L (0-32); Blood Urea Nitrogen 31 mg/dL (8-23); C Reactive Protein 4.4 mg/L (0.0-4.9); Calcium 8.9 mg/dL (8.5-10.5); Carbon Dioxide 32 mmol/L (22-29); Chloride 94 mmol/L (98-107); Glucose 323 mg/dL (65-115); Magnesium 1.9 mg/dL (1.7-2.3); Osmolality Calculated 299 mOsm/kg (285-295); Phosphorus 2.6 mg/dL (2.5-4.5); Potassium 4.2 mmol/L (3.5-5.1); Sodium 135 mmol/L (136-145); Total Bilirubin 0.6 mg/dL (0.15-1.2); Total Protein 6.1 g/dL (6.6-8.7); Vancomycin Trough 10.5 ug/mL (10-15)
[2023-11-10 09:02] LABS: NT Pro B Type Natriuretic Pept 723 pg/mL (0-450); Procalcitonin 0.07 ng/mL (0-0.5)
[2023-11-10] MEDS: cefepime 1,000 MG in sodium chloride 0.9% (plus) 50 ML 100 MG IV (10:16)
[2023-11-10] MEDS: vancomycin 1,250 MG/250 ML PIGGYBACK 250 MG IV (10:51)
--- NOTE | 2023-11-10 12:17 | PC.SOCIAL ---
IMM Update pg 2 of IMM updated and reviewed w/ patient. Copy provided and copy dated, initialed and placed in chart.
--- NOTE | 2023-11-10 13:08 | P.PN_ITS ---
Subjective 2 Subjective: Patient was seen this morning, she is quite teary this morning she is frustrated as she continues to have wheezing, continues to feel short of breath, she has had slow clinical progress, she has a at home with Alzheimer's dementia at home, with nobody to take care of him, but she tells me that she is so short of breath she feels unsafe to go home Vitals/I&O/Wt Last Vital Signs Temp 97.8 F 11/10/23 11:16 Pulse 75 11/10/23 11:41 Resp 20 H 11/10/23 11:41 BP 128/70 11/10/23 11:16 Pulse Ox 98 11/10/23 11:41 O2 Del Method Nasal Cannula 11/10/23 11:41 O2 Flow Rate 2 11/10/23 11:41 FiO2 35 11/04/23 23:38 11/09/23 11/10/23 11/10/23 22:59 06:59 14:59 Intake Total 493.333 / 1393.333 36.667 / 1430.000 660 / 660 Balance 493.333 / 1393.333 36.667 / 1430.000 660 / 660 Weight last 48 hrs Weight 75.466 kg Weight 76.702 kg Physical Exam 2 Const: COMMON NORMALS: no acute distress and patient oriented x3 Resp: COMMON NORMALS: normal respiratory effort, No retractions and No use of accessory muscles AUSCULTATION: crackles and wheezes Cardio: COMMON NORMALS: regular rate, regular rhythm, S1 normal heart sound present and S2 normal heart sound present RATE: regular rate RHYTHM: r egular rhythm HEART SOUNDS: S1 normal heart sound present and S2 normal heart sound present GI: COMMON NORMALS: Normal to inspection, nondistended, normoactive bowel sounds present and non-tender Extremity: COMMON NORMALS: no pedal edema Neuro: COMMON NORMALS: patient oriented x3 Psych: COMMON NORMALS: mental status grossly normal Urinary Catheter Management: Long: Cath Placed During This Visit: yes, but has since been removed by the nurse Reason for Continuing Indwelling Catheter: Decision to DC Catheter Urinary Catheter Date of Insertion: 11/03/23 Urinary Catheter Time of Insertion: 00:06 Date Urinary Catheter Removed: 11/06/23 Time Urinary Catheter Discontinued: 06:25 Data 11/10/23 08:17 11/10/23 08:17 Micro: Microbiology 12/26/23 23:02 Blood Culture - Final Blood 11/02/23 22:58 Blood Culture - Final Blood A&P Assessment and plan (1) Diastolic heart failure: Patient presents with evidence of acute diastolic heart failure Continue Lasix 40 mg p.o. twice daily Monitor renal function closely assisted renal toxic medication with BMP daily. Last echo demonstrated pulmonary hypertension, tricuspid regurgitation. Continue to monitor for improvement and weaning of oxygen CBC daily, BMP, magnesium daily (2) Atrial fibrillation: Patient presented with atrial fibrillation with rapid ventricular rate. This may be secondary to respiratory failure or heart failure. It does not necessarily mean failure of current medical treatment Changed to extended release diltiazem. Currently heart rate controlled Past experience with metoprolol demonstrated bradycardia. She is trying to avoid this currently but this may need to be added back. Anticoagulation with Xarelto Increase Cardizem to 90 every 6 hours (3) Chronic respiratory failure with hypoxia and hypercapnia: Patient with history of chronic respiratory failure with hypoxemia and hypercapnia She has acute exacerbation of COPD, with multifocal pneumonia, with RSV pneumonia She has fairly significant amount of hypoxia, and we will try to wean oxygen as tolerated Continue trilogy at night 2 doses of Lasix today Will give 1 dose of IV Solu-Medrol Continue broad-spectrum , failed Rocephin and doxycycline thus antibiotic coverage was broadened Continues to have wheezing CT of the chest shows multifocal opacities, likely infectious/inflammatory worse in the lower lobes Broaden antibiotic coverage to vancomycin, cefepime RSV positive DuoNeb every 4 hours, budesonide twice daily Rapid COVID-negative on October 30. Secondary to length of illness, repeating COVID PCR will be useful at this time. (4) History of pulmonary embolism: Continue patient's home Xarelto (5) Multifocal pneumonia: ? RSV positive, component of bacterial pneumonia ?follow blood cultures ?follow sputum cultures, ? Antibiotic coverage broadened to continue vancomycin, cefepime (6) RSV (respiratory syncytial virus pneumonia): Plan Other medical problems as outlined in past medical history DNR Xarelto will suffice for DVT prophylaxis, Discharge bowel regimen Will continue to give antibiotics, monitor respiratory status continue Lasix, will increase dose of steroids monitor blood sugars, insulin sliding scale, follow cultures Attestations 2 Medical Necessity Statement*: Patient requires hospitalization for multifocal pneumonia, RSV pneumonia, persistent wheezing, fluid overload Diagnoses Diastolic heart failure I50.30 Atrial fibrillation I48.91 Chronic respiratory failure with hypoxia and hypercapnia J96.11; J96.12 History of pulmonary embolism Z86.711 Multifocal pneumonia J18.9 RSV (respiratory syncytial virus pneumonia) J12.1
[2023-11-10 13:20] LABS: Glucose Point of Care 399 mg/dL (70-110)
[2023-11-10] MEDS: insulin lispro 100 unit/1 mL 12 UNIT SUBCUT (13:46)
[2023-11-10] MEDS: methylPREDNISolone sod succ 40 mg/mL INJ IVP ×2 (14:06→20:04)
[2023-11-10 14:22] LABS: Glucose Point of Care 298 mg/dL (70-110)
[2023-11-10 14:54] LABS: Estmated Average Glucose 148; Hemoglobin A1C 6.8 % (4.0-6.0)
[2023-11-10 17:15] LABS: Glucose Point of Care 86 mg/dL (70-110)
[2023-11-10] MEDS: atorvastatin 40 mg Tablet PO (20:04)
[2023-11-10] MEDS: gabapentin 100 mg Capsule 200 MG PO (20:04)
[2023-11-10] MEDS: HYDROcodone-acetaminophen 5-325 mg Tablet 1 TAB PO (20:04)
[2023-11-10 21:02] LABS: Glucose Point of Care 336 mg/dL (70-110)
[2023-11-11] VITALS (16 sets, daily range): BP systolic 116–161; BP diastolic 64–83; PULSE 62–106; RESP 16–18; TEMP 36.4–36.9; O2SAT 92–96
[2023-11-11] MEDS: cefepime 1,000 MG in sodium chloride 0.9% (plus) 50 ML 100 MG IV ×3 (00:13→23:13)
[2023-11-11] MEDS: dilTIAZem 30 mg Tablet 90 MG PO ×5 (00:14→23:10)
[2023-11-11] MEDS: ipratropium-albuterol 3 mL Neb INHALATION ×5 (02:35→23:44)
[2023-11-11 05:30] LABS: Basophils # 0.1 10^3/uL (0.0-0.1); Basophils % 0.3 %; Hematocrit 48.1 % (36-47); Lymphocytes # 0.6 10^3/uL (0.8-4.8); Mean Corpuscular Hemoglobin 30.7 pg (27-33); Mean Platelet Volume 9.3 fL (7.4-10.4); Monocytes # 0.3 10^3/uL (0.2-0.9); Monocytes % 1.7 %; Neutrophils # 16.93 10^3/uL (1.8-7.7); Neutrophils % 93.6 %; Nucleated Red Blood Cells % 0 %; Platelet Count 242 10^3/cmm (157-399); Red Blood Count 4.86 10^6/uL (3.85-5.65)
[2023-11-11 05:52] LABS: Alanine Aminotransferase 20 U/L (0-33); Albumin Level 3.2 g/dL (3.5-5.2); Alkaline Phosphatase 146 U/L (35-105); Blood Urea Nitrogen 38 mg/dL (8-23); Carbon Dioxide 35 mmol/L (22-29); Chloride 95 mmol/L (98-107); Globulin 2.9 g/dL (1.3-4.6); Glucose 442 mg/dL (65-115); Osmolality Calculated 314 mOsm/kg (285-295); Sodium 138 mmol/L (136-145); Total Bilirubin 0.5 mg/dL (0.15-1.2); Total Protein 6.1 g/dL (6.6-8.7)
[2023-11-11 06:00] LABS: NT Pro B Type Natriuretic Pept 773 pg/mL (0-450); Procalcitonin 0.07 ng/mL (0-0.5)
[2023-11-11 06:01] LABS: Anion Gap 12.6 (5-19); Aspartate Amino Transferase 19 U/L (0-32); Potassium 4.6 mmol/L (3.5-5.1)
[2023-11-11] MEDS: methylPREDNISolone sod succ 40 mg/mL INJ IVP ×3 (06:25→20:53)
[2023-11-11 06:37] LABS: Glucose Point of Care 396 mg/dL (70-110)
[2023-11-11] MEDS: rivaroxaban 10 mg Tablet 20 MG PO (08:53)
[2023-11-11] MEDS: FUROsemide 40 mg Tablet PO ×2 (08:53→17:39)
[2023-11-11] MEDS: LORazepam 0.5 mg Tablet 0.25 MG PO ×2 (08:53→17:55)
[2023-11-11] MEDS: docusate sodium 100 mg Capsule PO ×2 (08:53→17:39)
[2023-11-11] MEDS: pantoprazole DR 40 mg Tablet PO (08:53)
[2023-11-11] MEDS: insulin lispro 100 unit/1 mL SUBCUT ×3 (08:54→17:39)
[2023-11-11] MEDS: polyethylene glycol 3350 Pkt 17 gm PO (08:54)
[2023-11-11] MEDS: vancomycin 1,250 MG/250 ML PIGGYBACK 250 MG IV (08:57)
[2023-11-11] MEDS: insulin glargine 100 units/1 mL 10 UNIT SUBCUT (09:00)
[2023-11-11 11:02] LABS: Glucose Point of Care 423 mg/dL (70-110)
[2023-11-11 17:03] LABS: Glucose Point of Care 208 mg/dL (70-110)
--- NOTE | 2023-11-11 18:21 | P.PN_ITS ---
Subjective 2 Subjective: Patient was seen this morning, she tells me that her strength is improving, her wheezing is improving, Vitals/I&O/Wt Last Vital Signs Temp 97.9 F 11/11/23 15:32 Pulse 65 11/11/23 16:32 Resp 16 11/11/23 16:26 BP 137/79 11/11/23 15:32 Pulse Ox 94 11/11/23 16:26 O2 Del Method Nasal Cannula 11/11/23 16:26 O2 Flow Rate 2 11/11/23 16:26 FiO2 35 11/04/23 23:38 11/11/23 11/11/23 11/11/23 06:59 14:59 22:59 Intake Total 290 / 1670 780 / 780 240 / 1020 Balance 290 / 1670 780 / 780 240 / 1020 Weight last 48 hrs Weight 76.742 kg Weight 75.466 kg Physical Exam 2 Const: COMMON NORMALS: no acute distress and patient oriented x3 Resp: COMMON NORMALS: normal respiratory effort, No retractions and No use of accessory muscles AUSCULTATION: wheezes Cardio: COMMON NORMALS: regular rate, regular rhythm, S1 normal heart sound present and S2 normal heart sound present RATE: regular rate RHYTHM: r egular rhythm HEART SOUNDS: S1 normal heart sound present and S2 normal heart sound present GI: COMMON NORMALS: Normal to inspection, nondistended, normoactive bowel sounds present and non-tender Extremity: COMMON NORMALS: no pedal edema Neuro: COMMON NORMALS: patient oriented x3 Psych: COMMON NORMALS: mental status grossly normal Urinary Catheter Management: Long: Cath Placed During This Visit: yes, but has since been removed by the nurse Reason for Continuing Indwelling Catheter: Decision to DC Catheter Urinary Catheter Date of Insertion: 11/03/23 Urinary Catheter Time of Insertion: 00:06 Date Urinary Catheter Removed: 11/06/23 Time Urinary Catheter Discontinued: 06:25 Data 11/11/23 05:24 11/11/23 05:24 A&P Assessment and plan (1) Diastolic heart failure: Patient presents with evidence of acute diastolic heart failure Continue Lasix 40 mg p.o. twice daily Monitor renal function closely assisted renal toxic medication with BMP daily. Last echo demonstrated pulmonary hypertension, tricuspid regurgitation. Continue to monitor for improvement and weaning of oxygen CBC daily, BMP, magnesium daily (2) Atrial fibrillation: Patient presented with atrial fibrillation with rapid ventricular rate. This may be secondary to respiratory failure or heart failure. It does not necessarily mean failure of current medical treatment Changed to extended release diltiazem. Currently heart rate controlled Past experience with metoprolol demonstrated bradycardia. She is trying to avoid this currently but this may need to be added back. Anticoagulation with Xarelto Increase Cardizem to 90 every 6 hours (3) Chronic respiratory failure with hypoxia and hypercapnia: Patient with history of chronic respiratory failure with hypoxemia and hypercapnia She has acute exacerbation of COPD, with multifocal pneumonia, with RSV pneumonia She has fairly significant amount of hypoxia, and we will try to wean oxygen as tolerated Continue trilogy at night Continue Lasix 40 po twice daily Continue Solu-Medrol 40 IV every 8 hours, monitor blood sugars closely, Lantus, low-dose sliding scale Continue broad-spectrum , failed Rocephin and doxycycline thus antibiotic coverage was broadened to vancomycin, cefepime Continues to have wheezing CT of the chest shows multifocal opacities, likely infectious/inflammatory worse in the lower lobes Broaden antibiotic coverage to vancomycin, cefepime RSV positive DuoNeb every 4 hours, budesonide twice daily Rapid COVID-negative on October 30. Secondary to length of illness, repeating COVID PCR will be useful at this time. (4) History of pulmonary embolism: Continue patient's home Xarelto (5) Multifocal pneumonia: ? RSV positive, component of bacterial pneumonia ?follow blood cultures ?follow sputum cultures, ? Antibiotic coverage broadened to continue vancomycin, cefepime (6) RSV (respiratory syncytial virus pneumonia): Plan Other medical problems as outlined in past medical history DNR Xarelto will suffice for DVT prophylaxis, Discharge bowel regimen Plan for today, monitor cultures, continue p.o. Lasix, continue high-dose steroids, monitor respiratory status monitor blood sugars, continue cefepime, de-escalate off vancomycin Attestations 2 Medical Necessity Statement*: Patient requires hospitalization for respiratory failure, RSV, pneumonia, persistent wheezing, A-fib Diagnoses Diastolic heart failure I50.30 Atrial fibrillation I48.91 Chronic respiratory failure with hypoxia and hypercapnia J96.11; J96.12 History of pulmonary embolism Z86.711 Multifocal pneumonia J18.9 RSV (respiratory syncytial virus pneumonia) J12.1
[2023-11-11] MEDS: atorvastatin 40 mg Tablet PO (20:18)
[2023-11-11] MEDS: HYDROcodone-acetaminophen 5-325 mg Tablet 1 TAB PO (20:18)
[2023-11-11] MEDS: gabapentin 100 mg Capsule 200 MG PO (20:18)
[2023-11-11 20:56] LABS: Glucose Point of Care 205 mg/dL (70-110)
[2023-11-12] VITALS (13 sets, daily range): BP systolic 134–167; BP diastolic 70–79; PULSE 65–111; RESP 15–20; TEMP 36.3–36.9; O2SAT 88–98
[2023-11-12] MEDS: ipratropium-albuterol 3 mL Neb INHALATION ×4 (03:54→23:36)
[2023-11-12] MEDS: dilTIAZem 30 mg Tablet 90 MG PO ×4 (04:39→22:02)
[2023-11-12] MEDS: methylPREDNISolone sod succ 40 mg/mL INJ IVP (05:05)
[2023-11-12 05:31] LABS: Basophils % 0.2 %; Hematocrit 46.7 % (36-47); Lymphocytes # 0.6 10^3/uL (0.8-4.8); Lymphocytes % 3.6 %; Mean Corpuscular HGB Conc 30.6 g/dL (30-55); Mean Corpuscular Hemoglobin 30.3 pg (27-33); Mean Corpuscular Volume 98.9 fl (85-98); Mean Platelet Volume 9.8 fL (7.4-10.4); Monocytes # 0.3 10^3/uL (0.2-0.9); Monocytes % 1.7 %; Neutrophils # 15.43 10^3/uL (1.8-7.7); Nucleated Red Blood Cells % 0 %; Platelet Count 230 10^3/cmm (157-399); Red Blood Count 4.72 10^6/uL (3.85-5.65); Red Cell Distribution Width 13.1 % (12.1-15.1); White Blood Count 16.58 10^3/uL (3.29-11.43)
[2023-11-12 05:57] LABS: Glucose Point of Care 450 mg/dL (70-110)
[2023-11-12 06:00] LABS: NT Pro B Type Natriuretic Pept 752 pg/mL (0-450); Procalcitonin 0.05 ng/mL (0-0.5)
[2023-11-12 06:05] LABS: Alanine Aminotransferase 23 U/L (0-33); Albumin Level 3.3 g/dL (3.5-5.2); Alkaline Phosphatase 143 U/L (35-105); Anion Gap 13.7 (5-19); Aspartate Amino Transferase 18 U/L (0-32); Blood Urea Nitrogen 54 mg/dL (8-23); Calcium 9.1 mg/dL (8.5-10.5); Carbon Dioxide 34 mmol/L (22-29); Chloride 96 mmol/L (98-107); Globulin 2.3 g/dL (1.3-4.6); Glucose 498 mg/dL (65-115); Magnesium 2.1 mg/dL (1.7-2.3); Osmolality Calculated 325 mOsm/kg (285-295); Phosphorus 3.3 mg/dL (2.5-4.5); Potassium 4.7 mmol/L (3.5-5.1); Sodium 139 mmol/L (136-145); Total Bilirubin 0.5 mg/dL (0.15-1.2); Total Protein 5.6 g/dL (6.6-8.7)
[2023-11-12] MEDS: insulin glargine 100 units/1 mL 10 UNIT SUBCUT (06:15)
[2023-11-12] MEDS: polyethylene glycol 3350 Pkt 17 gm PO (08:02)
[2023-11-12] MEDS: pantoprazole DR 40 mg Tablet PO (08:02)
[2023-11-12] MEDS: FUROsemide 40 mg Tablet PO ×2 (08:02→17:27)
[2023-11-12] MEDS: insulin lispro 100 unit/1 mL SUBCUT ×3 (08:02→18:43)
[2023-11-12] MEDS: docusate sodium 100 mg Capsule PO (08:03)
[2023-11-12] MEDS: rivaroxaban 10 mg Tablet 20 MG PO (08:03)
[2023-11-12 10:58] LABS: Glucose Point of Care 358 mg/dL (70-110)
[2023-11-12] MEDS: predniSONE 20 mg Tablet 40 MG PO (12:53)
[2023-11-12] MEDS: cefepime 1,000 MG in sodium chloride 0.9% (plus) 50 ML 100 MG IV ×2 (12:54→23:05)
--- NOTE | 2023-11-12 13:09 | PC.SOCIAL ---
IMM Update pg 2 of IMM updated and reviewed w/ patient copy provided and copy dated, initialed and placed in chart.
[2023-11-12 17:08] LABS: Glucose Point of Care 228 mg/dL (70-110)
[2023-11-12] MEDS: LORazepam 0.5 mg Tablet 0.25 MG PO (17:27)
--- NOTE | 2023-11-12 17:37 | P.PN_ITS ---
Subjective 2 Subjective: Patient was seen this morning she tells me that her wheezing is better, no significant cough, continues to have fatigue and malaise, shortness of breath with exertion Vitals/I&O/Wt Last Vital Signs Temp 97.7 F 11/12/23 16:00 Pulse 111 H 11/12/23 16:00 Resp 17 11/12/23 16:00 BP 163/79 11/12/23 16:00 Pulse Ox 90 11/12/23 16:00 O2 Del Method Nasal Cannula 11/12/23 16:00 O2 Flow Rate 1 11/12/23 07:50 FiO2 35 11/04/23 23:38 11/12/23 11/12/23 11/12/23 06:59 14:59 22:59 Intake Total 290 / 1310 770 / 770 Balance 290 / 1310 770 / 770 Weight last 48 hrs Weight 79.038 kg Weight 76.742 kg Physical Exam 2 Const: COMMON NORMALS: no acute distress and patient oriented x3 Resp: COMMON NORMALS: normal respiratory effort, No retractions and No use of accessory muscles AUSCULTATION: wheezes Cardio: COMMON NORMALS: regular rate, regular rhythm, S1 normal heart sound present and S2 normal heart sound present RATE: regular rate RHYTHM: r egular rhythm HEART SOUNDS: S1 normal heart sound present and S2 normal heart sound present GI: COMMON NORMALS: Normal to inspection, nondistended, normoactive bowel sounds present and non-tender Extremity: COMMON NORMALS: no pedal edema Neuro: COMMON NORMALS: patient oriented x3 Psych: COMMON NORMALS: mental status grossly normal Urinary Catheter Management: Long: Cath Placed During This Visit: yes, but has since been removed by the nurse Reason for Continuing Indwelling Catheter: Decision to DC Catheter Urinary Catheter Date of Insertion: 11/03/23 Urinary Catheter Time of Insertion: 00:06 Date Urinary Catheter Removed: 11/06/23 Time Urinary Catheter Discontinued: 06:25 Data 11/12/23 05:04 11/12/23 05:04 A&P Assessment and plan (1) Diastolic heart failure: Patient presents with evidence of acute diastolic heart failure Continue Lasix 40 mg p.o. twice daily Monitor renal function closely assisted renal toxic medication with BMP daily. Last echo demonstrated pulmonary hypertension, tricuspid regurgitation. Continue to monitor for improvement and weaning of oxygen CBC daily, BMP, magnesium daily (2) Atrial fibrillation: Patient presented with atrial fibrillation with rapid ventricular rate. This may be secondary to respiratory failure or heart failure. It does not necessarily mean failure of current medical treatment Changed to extended release diltiazem. Currently heart rate controlled Past experience with metoprolol demonstrated bradycardia. She is trying to avoid this currently but this may need to be added back. Anticoagulation with Xarelto Increase Cardizem to 90 every 6 hours (3) Chronic respiratory failure with hypoxia and hypercapnia: Patient with history of chronic respiratory failure with hypoxemia and hypercapnia She has acute exacerbation of COPD, with multifocal pneumonia, with RSV pneumonia She has fairly significant amount of hypoxia, and we will try to wean oxygen as tolerated Continue trilogy at night Continue Lasix 40 po twice daily Continue Solu-Medrol 40 IV every 8 hours, monitor blood sugars closely, Lantus, low-dose sliding scale Continue broad-spectrum , failed Rocephin and doxycycline thus antibiotic coverage was broadened to vancomycin, cefepime Continues to have wheezing CT of the chest shows multifocal opacities, likely infectious/inflammatory worse in the lower lobes Broaden antibiotic coverage to vancomycin, cefepime RSV positive DuoNeb every 4 hours, budesonide twice daily Rapid COVID-negative on October 30. Secondary to length of illness, repeating COVID PCR will be useful at this time. (4) History of pulmonary embolism: Continue patient's home Xarelto (5) Multifocal pneumonia: ? RSV positive, component of bacterial pneumonia ?follow blood cultures ?follow sputum cultures, ? Antibiotic coverage broadened to continue vancomycin, cefepime (6) RSV (respiratory syncytial virus pneumonia): Plan Other medical problems as outlined in past medical history DNR Xarelto will suffice for DVT prophylaxis, Discharge bowel regimen Plan for today, de-escalate to p.o. prednisone, monitor blood sugars closely, continue antibiotics, stop vancomycin continue cefepime, plan on discharging in the next 24 hours Attestations 2 Medical Necessity Statement*: Patient requires hospitalization for chronic respiratory failure, RSV, pneumonia Diagnoses Diastolic heart failure I50.30 Atrial fibrillation I48.91 Chronic respiratory failure with hypoxia and hypercapnia J96.11; J96.12 History of pulmonary embolism Z86.711 Multifocal pneumonia J18.9 RSV (respiratory syncytial virus pneumonia) J12.1
[2023-11-12] MEDS: atorvastatin 40 mg Tablet PO (21:11)
[2023-11-12 21:12] LABS: Glucose Point of Care 327 mg/dL (70-110)
[2023-11-12] MEDS: HYDROcodone-acetaminophen 5-325 mg Tablet 1 TAB PO (21:12)
[2023-11-12] MEDS: gabapentin 100 mg Capsule 200 MG PO (21:12)
[2023-11-13] VITALS (13 sets, daily range): BP systolic 132–169; BP diastolic 68–95; PULSE 77–106; RESP 16–20; TEMP 36.4–36.9; O2SAT 93–97
[2023-11-13] MEDS: dilTIAZem 30 mg Tablet 90 MG PO ×4 (04:36→22:05)
[2023-11-13] MEDS: ipratropium-albuterol 3 mL Neb INHALATION ×2 (04:59→19:48)
[2023-11-13] MEDS: insulin glargine 100 units/1 mL 10 UNIT SUBCUT (05:26)
[2023-11-13 05:29] LABS: Glucose Point of Care 342 mg/dL (70-110)
[2023-11-13 05:29] LABS: Basophils % 0.1 %; Hematocrit 49.6 % (36-47); Lymphocytes # 0.9 10^3/uL (0.8-4.8); Mean Corpuscular HGB Conc 30.6 g/dL (30-55); Mean Corpuscular Hemoglobin 30.1 pg (27-33); Mean Corpuscular Volume 98.2 fl (85-98); Mean Platelet Volume 9.5 fL (7.4-10.4); Monocytes # 0.6 10^3/uL (0.2-0.9); Monocytes % 3.3 %; Neutrophils # 15.96 10^3/uL (1.8-7.7); Neutrophils % 89.8 %; Nucleated Red Blood Cells % 0 %; Platelet Count 240 10^3/cmm (157-399); Red Blood Count 5.05 10^6/uL (3.85-5.65); Red Cell Distribution Width 13.2 % (12.1-15.1); White Blood Count 17.77 10^3/uL (3.29-11.43)
[2023-11-13 05:57] LABS: Alanine Aminotransferase 25 U/L (0-33); Albumin Level 3.4 g/dL (3.5-5.2); Alkaline Phosphatase 149 U/L (35-105); Anion Gap 14.3 (5-19); Aspartate Amino Transferase 20 U/L (0-32); Blood Urea Nitrogen 41 mg/dL (8-23); Calcium 8.9 mg/dL (8.5-10.5); Carbon Dioxide 35 mmol/L (22-29); Chloride 95 mmol/L (98-107); Globulin 2.9 g/dL (1.3-4.6); Glucose 336 mg/dL (65-115); Osmolality Calculated 313 mOsm/kg (285-295); Potassium 4.3 mmol/L (3.5-5.1); Sodium 140 mmol/L (136-145); Total Bilirubin 0.7 mg/dL (0.15-1.2); Total Protein 6.3 g/dL (6.6-8.7)
[2023-11-13 06:40] LABS: Glucose Point of Care 323 mg/dL (70-110)
[2023-11-13] MEDS: insulin lispro 100 unit/1 mL SUBCUT ×3 (08:02→17:19)
[2023-11-13] MEDS: pantoprazole DR 40 mg Tablet PO (08:03)
[2023-11-13] MEDS: predniSONE 20 mg Tablet 40 MG PO (08:03)
[2023-11-13] MEDS: FUROsemide 40 mg Tablet PO ×2 (08:03→15:57)
[2023-11-13] MEDS: rivaroxaban 10 mg Tablet 20 MG PO (08:03)
[2023-11-13] MEDS: chlorthalidone 25 mg Tablet PO (10:19)
[2023-11-13 11:25] LABS: Glucose Point of Care 213 mg/dL (70-110)
[2023-11-13] MEDS: cefepime 1,000 MG in sodium chloride 0.9% (plus) 50 ML 100 MG IV (12:25)
--- NOTE | 2023-11-13 15:43 | P.PN_ITS ---
Subjective 2 Subjective: Patient was seen this morning, she feels better but continues to have intermittent wheezing, fatigue, malaise, she is worried about going home Vitals/I&O/Wt Last Vital Signs Temp 97.6 F 11/13/23 11:29 Pulse 89 11/13/23 13:51 Resp 18 11/13/23 13:51 BP 144/81 11/13/23 11:29 Pulse Ox 94 11/13/23 13:51 O2 Del Method Nasal Cannula 11/13/23 13:51 O2 Flow Rate 2 11/13/23 13:51 FiO2 35 11/04/23 23:38 11/13/23 11/13/23 11/13/23 06:59 14:59 22:59 Intake Total 50 / 1540 1450 / 1450 Output Total 400 / 400 Balance 50 / 1540 1050 / 1050 Weight last 48 hrs Weight 79.197 kg Weight 79.038 kg Physical Exam 2 Const: COMMON NORMALS: no acute distress and patient oriented x3 Resp: COMMON NORMALS: normal respiratory effort, No retractions and No use of accessory muscles AUSCULTATION: wheezes Cardio: COMMON NORMALS: regular rate, regular rhythm, S1 normal heart sound present and S2 normal heart sound present RATE: regular rate RHYTHM: r egular rhythm HEART SOUNDS: S1 normal heart sound present and S2 normal heart sound present GI: COMMON NORMALS: Normal to inspection, nondistended, normoactive bowel sounds present and non-tender Extremity: COMMON NORMALS: no pedal edema Neuro: COMMON NORMALS: patient oriented x3 Psych: COMMON NORMALS: mental status grossly normal Urinary Catheter Management: Long: Cath Placed During This Visit: yes, but has since been removed by the nurse Reason for Continuing Indwelling Catheter: Decision to DC Catheter Urinary Catheter Date of Insertion: 11/03/23 Urinary Catheter Time of Insertion: 00:06 Date Urinary Catheter Removed: 11/06/23 Time Urinary Catheter Discontinued: 06:25 Data 11/13/23 05:09 11/13/23 05:09 A&P Assessment and plan (1) Diastolic heart failure: Patient presents with evidence of acute diastolic heart failure Continue Lasix 40 mg p.o. twice daily Monitor renal function closely assisted renal toxic medication with BMP daily. Last echo demonstrated pulmonary hypertension, tricuspid regurgitation. Continue to monitor for improvement and weaning of oxygen CBC daily, BMP, magnesium daily (2) Atrial fibrillation: Patient presented with atrial fibrillation with rapid ventricular rate. This may be secondary to respiratory failure or heart failure. It does not necessarily mean failure of current medical treatment Changed to extended release diltiazem. Currently heart rate controlled Past experience with metoprolol demonstrated bradycardia. She is trying to avoid this currently but this may need to be added back. Anticoagulation with Xarelto Increase Cardizem to 90 every 6 hours (3) Chronic respiratory failure with hypoxia and hypercapnia: Patient with history of chronic respiratory failure with hypoxemia and hypercapnia She has acute exacerbation of COPD, with multifocal pneumonia, with RSV pneumonia She has fairly significant amount of hypoxia, and we will try to wean oxygen as tolerated Continue trilogy at night Continue Lasix 40 po twice daily De-escalated to prednisone 40 mg daily, monitor blood sugars closely, Lantus, low-dose sliding scale Completed 7 days of IV antibiotics as inpatient, stopped Continues to have wheezing CT of the chest shows multifocal opacities, likely infectious/inflammatory worse in the lower lobes Broaden antibiotic coverage to vancomycin, cefepime, completed 11/13/2023 RSV positive DuoNeb every 4 hours, budesonide twice daily Rapid COVID-negative on October 30. Secondary to length of illness, repeating COVID PCR will be useful at this time. (4) History of pulmonary embolism: Continue patient's home Xarelto (5) Multifocal pneumonia: ? RSV positive, component of bacterial pneumonia ?follow blood cultures ?follow sputum cultures, ? Antibiotic coverage broadened to continue vancomycin, cefepime (6) RSV (respiratory syncytial virus pneumonia): Plan Other medical problems as outlined in past medical history DNR Xarelto will suffice for DVT prophylaxis, Discharge bowel regimen Plan for today, continue prednisone monitor respiratory status monitor blood sugars plan to discharge in the next 24 hours Attestations 2 Medical Necessity Statement*: patient requires hospitalization and due to RSV pneumonia persistent wheezing, requiring inpatient monitoring Diagnoses Diastolic heart failure I50.30 Atrial fibrillation I48.91 Chronic respiratory failure with hypoxia and hypercapnia J96.11; J96.12 History of pulmonary embolism Z86.711 Multifocal pneumonia J18.9 RSV (respiratory syncytial virus pneumonia) J12.1
[2023-11-13 16:43] LABS: Glucose Point of Care 148 mg/dL (70-110)
[2023-11-13] MEDS: atorvastatin 40 mg Tablet PO (20:50)
[2023-11-13] MEDS: HYDROcodone-acetaminophen 5-325 mg Tablet 1 TAB PO (20:50)
[2023-11-13] MEDS: gabapentin 100 mg Capsule 200 MG PO (20:50)
[2023-11-13 20:57] LABS: Glucose Point of Care 300 mg/dL (70-110)
[2023-11-14] VITALS (8 sets, daily range): BP systolic 118–146; BP diastolic 61–86; PULSE 62–87; RESP 16–18; TEMP 36.5–36.7; O2SAT 93–98
[2023-11-14] MEDS: ipratropium-albuterol 3 mL Neb INHALATION (02:16)
[2023-11-14 04:17] LABS: Basophils % 0.2 %; Hematocrit 46.8 % (36-47); Lymphocytes # 1.4 10^3/uL (0.8-4.8); Mean Corpuscular Hemoglobin 29.5 pg (27-33); Mean Corpuscular Volume 95.3 fl (85-98); Mean Platelet Volume 9.9 fL (7.4-10.4); Monocytes # 0.9 10^3/uL (0.2-0.9); Monocytes % 5.6 %; Neutrophils # 13.25 10^3/uL (1.8-7.7); Neutrophils % 84.2 %; Nucleated Red Blood Cells % 0 %; Platelet Count 214 10^3/cmm (157-399); Red Blood Count 4.91 10^6/uL (3.85-5.65); Red Cell Distribution Width 13.1 % (12.1-15.1); White Blood Count 15.74 10^3/uL (3.29-11.43)
[2023-11-14 04:44] LABS: Alanine Aminotransferase 26 U/L (0-33); Alkaline Phosphatase 130 U/L (35-105); Anion Gap 12.9 (5-19); Aspartate Amino Transferase 21 U/L (0-32); Blood Urea Nitrogen 41 mg/dL (8-23); Calcium 8.6 mg/dL (8.5-10.5); Carbon Dioxide 36 mmol/L (22-29); Chloride 93 mmol/L (98-107); Globulin 2.7 g/dL (1.3-4.6); Glucose 170 mg/dL (65-115); Osmolality Calculated 300 mOsm/kg (285-295); Phosphorus 3.2 mg/dL (2.5-4.5); Potassium 3.9 mmol/L (3.5-5.1); Sodium 138 mmol/L (136-145); Total Bilirubin 0.6 mg/dL (0.15-1.2); Total Protein 5.7 g/dL (6.6-8.7)
[2023-11-14] MEDS: insulin glargine 100 units/1 mL 10 UNIT SUBCUT (05:14)
[2023-11-14] MEDS: dilTIAZem 30 mg Tablet 90 MG PO ×2 (05:14→11:08)
[2023-11-14 05:24] LABS: Glucose Point of Care 122 mg/dL (70-110)
--- NOTE | 2023-11-14 07:00 | XRR_ITS ---
PROCEDURE INFORMATION: Exam: XR Chest Exam date and time: 11/14/2023 9:24 AM Age: 88 years old Clinical indication: Shortness of breath; Prior surgery; Surgery date: 6+ months; Surgery type: Coronary stent, spine, vc filter; Additional info: SOB TECHNIQUE: Imaging protocol: Radiologic exam of the chest. Views: 1 view. COMPARISON: CT chest wo con [id number] 11/06/2023 12:19 PM FINDINGS: Lungs: There is increased lung markings and haziness of the lungs haziness of the lungs and small bilateral pleural effusions, which in the setting of cardiomegaly is consistent with pulmonary edema. Pneumonia should be excluded clinically. No pneumothorax. Pleural spaces: See Lungs finding. Heart/Mediastinum: Stable cardiomediastinal silhouette. Bones/joints: Thoracolumbar spine fusion hardware is partially included. XR/XR chest 1V portable [id number] IMPRESSION: Imaging findings of pulmonary edema with small bilateral pleural effusions. Pneumonia should be excluded clinically.
[2023-11-14] MEDS: rivaroxaban 10 mg Tablet 20 MG PO (09:00)
[2023-11-14] MEDS: predniSONE 20 mg Tablet 40 MG PO (09:01)
[2023-11-14] MEDS: polyethylene glycol 3350 Pkt 17 gm PO (09:01)
[2023-11-14] MEDS: chlorthalidone 25 mg Tablet PO (09:01)
[2023-11-14] MEDS: pantoprazole DR 40 mg Tablet PO (09:01)
[2023-11-14] MEDS: docusate sodium 100 mg Capsule PO (09:01)
[2023-11-14] MEDS: FUROsemide 40 mg Tablet PO (09:11)
[2023-11-14 10:56] LABS: Glucose Point of Care 269 mg/dL (70-110)
[2023-11-14] MEDS: insulin lispro 100 unit/1 mL SUBCUT (11:08)
--- NOTE | 2023-11-14 11:16 | P.DS_ITS ---
Discharge Providers Date of Admission: 11/03/23 00:23 Date of Discharge: November 14, 2023 Attending Provider at Admission: Soila Sanchez MD Attending Provider at Discharge: Cosmo Morgan MD Primary Care Provider: June Merchant Diagnoses at Discharge Discharge Diagnosis (1) Diastolic heart failure: Status: Acute (2) Atrial fibrillation: Status: Acute (3) Chronic respiratory failure with hypoxia and hypercapnia: Status: Acute (4) History of pulmonary embolism: Status: Acute (5) Multifocal pneumonia: Status: Acute (6) RSV (respiratory syncytial virus pneumonia): Status: Acute Reason for Visit Reason for Visit: RESP. DISTRESS Hospital Course Hospital Course Maria Teresa Woodruff is a 88 year old female with history of atrial fibrillation, history of DVT, on chronic anticoagulation with Xarelto, COPD, using trilogy at night, 2 L oxygen, CHF with recent recurrent admissions for A fib presented to the ER today with worsening shortness of breath and lower extremity edema. She was recently also here on with hypoxia and was treated for COPD exacerbation. She was discharged with a Medrol Dosepak and albuterol inhaler. She presents to the emergency room today Due to persistence of symptoms. Denies any chest pain. She is found to be in A-fib with RVR with heart rate initially in the 160s for which she was started on Cardizem infusion in the emergency room which is continued at this point. Her oxygen saturation was down to 81% on arrival for which she was placed on BiPAP. ABG showed evidence of chronic hypoxic hypercapnic respiratory failure. No reported fever at home. Recently tested negative on COVID and influenza antigens. Patient was admitted to [facility] for acute on chronic hypoxic hypercapnic respiratory failure, secondary to COPD, multifocal pneumonia, with RSV pneumonia, patient had a prolonged hospitalization received broad-spectrum antibiotic therapies, steroid therapy, and clinical monitoring, her hospitalization was complicated with persistent wheezing, requiring high doses of steroids, and clinical monitoring overall her clinical condition improved will be discharged home with a prednisone burst, doxycycline, her home oxygen therapy, Advair therapy with close follow-up with pulmonary as outpatient, For diastolic CHF, exacerbation she did receive Lasix therapy as inpatient and transition to her home Lasix discharged with close follow-up with primary care provider as outpatient continue Lasix 40 mg twice daily RSV pneumonia, strongly encourage consideration of RSV vaccination, through primary care Patient had A-fib with RVR during hospitalization requiring increased doses of Cardizem, she was managed with Cardizem 90 every 6 hours, transition to Cardizem 360 mg extended release every 24 hours at home, continue home Xarelto, follow-up with cardiology as outpatient Physical Exam Const: COMMON NORMALS: no acute distress and patient oriented x3 Resp: COMMON NORMALS: normal respiratory effort, No retractions, No use of accessory muscles and clear to auscultation bilaterally AUSCULTATION: clear to auscultation bilaterally Cardio: COMMON NORMALS: regular rate, regular rhythm, S1 normal heart sound present and S2 normal heart sound present RATE: regular rate RHYTHM: regular rhythm HEART SOUNDS: S1 normal heart sound present and S2 normal heart sound present GI: COMMON NORMALS: Normal to inspection, nondistended, normoactive bowel sounds present and non-tender Extremity: COMMON NORMALS: no pedal edema Neuro: COMMON NORMALS: patient oriented x3 Psych: COMMON NORMALS: mental status grossly normal Urinary Catheter Management: Long: Cath Placed During This Visit: yes, but has since been removed by the nurse Reason for Continuing Indwelling Catheter: Decision to DC Catheter Urinary Catheter Date of Insertion: 11/03/23 Urinary Catheter Time of Insertion: 00:06 Date Urinary Catheter Removed: 11/06/23 Time Urinary Catheter Discontinued: 06:25 Discharge Data Studies Completed and Pending Completed Studies During Hospitalization Category Date Time Status CT chest wo con [id number] Routine Cat Scan 11/06/23 11:07 Completed XR chest 1V portable [id number] Routine Exams 11/14/23 07:00 Completed XR chest 1V portable [id number] Routine Exams 11/04/23 07:55 Completed XR chest 1V portable [id number] Stat Exams 11/02/23 22:22 Completed Blood Cultures ([facility]) Routine Lab 11/02/23 22:58 Completed Blood Cultures ([facility]) Routine Lab 11/02/23 23:02 Completed Pending at discharge Category Date Time Status Complete Blood Count w/Auto AM LABS Lab 11/15/23 04:00 Ordered Comprehensive Metabolic Panel AM LABS Lab 11/15/23 04:00 Ordered Magnesium AM LABS Lab 11/15/23 04:00 Ordered Phosphorus AM LABS Lab 11/15/23 04:00 Ordered Sputum Culture and Gram Stain Stat Lab 11/10/23 13:12 Uncollected Radiology Impressions Chest CT 11/06/23 11:07 IMPRESSION: Multifocal opacities likely infectious/inflammatory. Unchanged 1.5 cm left lower lobe nodule. Small right and trace left pleural effusions COMMENTS: For patients with an IVC filter, recommend assessment for a management plan for the patient's IVC filter. If there is no established management plan, recommend referral to an interventional clinician on a nonemergent basis for evaluation. Chest X-Ray 11/14/23 07:00 IMPRESSION: Imaging findings of pulmonary edema with small bilateral pleural effusions. Pneumonia should be excluded clinically. Laboratory Results WBC 15.74 10^3/uL (3.29-11.43) H 11/14/23 02:48 RBC 4.91 10^6/uL (3.85-5.65) 11/14/23 02:48 Hgb 14.50 g/dL (11.27-16.99) 11/14/23 02:48 Hct 46.8 % (36-47) 11/14/23 02:48 MCV 95.3 fl (85-98) 11/14/23 02:48 MCH 29.5 pg (27-33) 11/14/23 02:48 MCHC 31.0 g/dL (30-55) 11/14/23 02:48 RDW 13.1 % (12.1-15.1) 11/14/23 02:48 Plt Count 214 10^3/cmm (157-399) 11/14/23 02:48 MPV 9.9 fL (7.4-10.4) 11/14/23 02:48 Neut % (Auto) 84.2 % 11/14/23 02:48 Lymph % (Auto) 9.0 % 11/14/23 02:48 [place] % (Auto) 5.6 % 11/14/23 02:48 Eos % (Auto) 0.0 % 11/14/23 02:48 Baso % (Auto) 0.2 % 11/14/23 02:48 Neut # (Auto) 13.25 10^3/uL (1.8-7.7) H 11/14/23 02:48 Lymph # (Auto) 1.4 10^3/uL (0.8-4.8) 11/14/23 02:48 [place] # (Auto) 0.9 10^3/uL (0.2-0.9) 11/14/23 02:48 Eos # (Auto) 0.0 10^3/uL (0.0-0.8) 11/14/23 02:48 Baso # (Auto) 0.0 10^3/uL (0.0-0.1) 11/14/23 02:48 Nucleated RBC % (auto) 0 % 11/14/23 02:48 Nucleated RBCs # 0.0 /100WBC 11/14/23 02:48 Specimen Type Arterial 11/02/23 23:44 Sample Site Radial, right 11/02/23 23:44 ABG pH 7.44 (7.35-7.45) 11/02/23 23:44 ABG pCO2 62.6 mmHg (35-45) H* 11/02/23 23:44 ABG pO2 101.0 mmHg (80.0-100.0) H 11/02/23 23:44 ABG HCO3 42.7 mmol/L (22-26) H 11/02/23 23:44 ABG O2 Saturation 98.2 11/02/23 23:44 ABG Base Excess 15.3 mmol/L (-2.0-2.0) H 11/02/23 23:44 Seng Test Pos 11/02/23 23:44 A-a O2 Gradient Not Reportable 11/02/23 23:44 Hematocrit 43.3 % (37-47) 11/02/23 23:44 Hgb O2 Saturation 96.9 % (95-100) 11/02/23 23:44 Carboxyhemoglobin 0.8 %THgb (0.4-20.1) 11/02/23 23:44 Methemoglobin 0.4 % (0.4-1.5) 11/02/23 23:44 Total Hemoglobin 14.1 g/dL (12-16) 11/02/23 23:44 Sodium 143.0 mmol/L (131-143) 11/02/23 23:44 Potassium 3.5 mmol/L (3.5-5.0) 11/02/23 23:44 Glucose 141.0 mg/dL (70-115) H 11/02/23 23:44 Ionized Calcium 1.2 mmol/L (1.1-1.4) 11/02/23 23:44 O2 Delivery Device Nc 11/02/23 23:44 O2 Liters/Min 3.0 % 11/02/23 23:44 Estate Planning Paralegal ID [place] 11/02/23 23:44 Sodium 138 mmol/L (136-145) 11/14/23 02:48 Potassium 3.9 mmol/L (3.5-5.1) 11/14/23 02:48 Chloride 93 mmol/L (98-107) L 11/14/23 02:48 Carbon Dioxide 36 mmol/L (22-29) H 11/14/23 02:48 Anion Gap 12.9 (5-19) 11/14/23 02:48 BUN 41 mg/dL (8-23) H 11/14/23 02:48 Creatinine 0.8 mg/dL (0.5-0.9) 11/14/23 02:48 GFR Calculation Not Reportable 11/14/23 02:48 Glucose 170 mg/dL (65-115) H 11/14/23 02:48 POC Glucose 269 mg/dL (70-110) H 11/14/23 10:50 Estimat Average Glucose 148 11/10/23 08:17 Hemoglobin A1c 6.8 % (4.0-6.0) H 11/10/23 08:17 Calculated Osmolality 300 mOsm/kg (285-295) H 11/14/23 02:48 Lactic Acid 1.3 mmol/L (0.5-2.2) 11/02/23 22:23 Calcium 8.6 mg/dL (8.5-10.5) 11/14/23 02:48 Phosphorus 3.2 mg/dL (2.5-4.5) 11/14/23 02:48 Magnesium 2.0 mg/dL (1.7-2.3) 11/14/23 02:48 Total Bilirubin 0.6 mg/dL (0.15-1.2) 11/14/23 02:48 AST 21 U/L (0-32) 11/14/23 02:48 ALT 26 U/L (0-33) 11/14/23 02:48 Alkaline Phosphatase 130 U/L (35-105) H 11/14/23 02:48 Troponin T Baseline 31 ng/L (0-10) H 11/02/23 22:23 Troponin T 120 Minute 30.76 ng/L (0-10) H 11/03/23 00:14 Delta Troponin T -0.24 ABS# (0-10) L 11/03/23 00:14 Troponin T Hi Sens 6Hr 36.36 ng/L (0-10) H 11/03/23 04:35 Troponin T Hi Sens 6Hr Delta 5.36 ng/L (0-12) 11/03/23 04:35 C-Reactive Protein 3.0 mg/L (0.0-4.9) 11/12/23 05:04 NT-Pro-B Natriuret Pep 752 pg/mL (0-450) H 11/12/23 05:04 Total Protein 5.7 g/dL (6.6-8.7) L 11/14/23 02:48 Albumin 3.0 g/dL (3.5-5.2) L 11/14/23 02:48 Globulin 2.7 g/dL (1.3-4.6) 11/14/23 02:48 Procalcitonin 0.05 ng/mL (0-0.5) 11/12/23 05:04 Nasal Influ A H1 2009 PCR Not detected (NOT DETECT) 11/07/23 10:55 Vancomycin Trough 10.5 ug/mL (10-15) 11/10/23 08:17 Adenovirus (PCR) Not detected (NOT DETECT) 11/07/23 10:55 C. pneumoniae DNA (PCR) Not detected (NOT DETECT) 11/07/23 10:55 Coronavirus 229E (PCR) Not detected (NOT DETECT) 11/07/23 10:55 Human Metapneumovir PCR Not detected (NOT DETECT) 11/07/23 10:55 Influenza A (H1) PCR Not detected (NOT DETECT) 11/07/23 10:55 Influenza A (H3) PCR Not detected (NOT DETECT) 11/07/23 10:55 Influenza Type A (PCR) Not detected (NOT DETECT) 11/07/23 10:55 Influenza Type B (PCR) Not detected (NOT DETECT) 11/07/23 10:55 M. pneumoniae (PCR) Not detected (NOT DETECT) 11/07/23 10:55 Parainfluenza 1 (PCR) Not detected (NOT DETECT) 11/07/23 10:55 Parainfluenza 2 (PCR) Not detected (NOT DETECT) 11/07/23 10:55 Parainfluenza 3 (PCR) Not detected (NOT DETECT) 11/07/23 10:55 Parainfluenza 4 (PCR) Not detected (NOT DETECT) 11/07/23 10:55 RSV Type A (PCR) Detected (NOT DETECT) A 11/07/23 10:55 RSV Type B (PCR) Not detected (NOT DETECT) 11/07/23 10:55 Entero/Rhino (PCR) Not detected (NOT DETECT) 11/07/23 10:55 SARS-CoV-2 (PCR) Not detected (NOT DETECT) 11/07/23 10:55 Vitals Last Vital Signs Temp 98 F 11/14/23 07:42 Pulse 62 11/14/23 08:58 Resp 16 11/14/23 08:58 BP 118/77 11/14/23 07:42 Pulse Ox 98 11/14/23 08:58 O2 Del Method Nasal Cannula 11/14/23 08:58 O2 Flow Rate 2 11/14/23 08:58 FiO2 35 11/04/23 23:38 Discharge Plan Discharge Patient Disposition: Home Condition: Stable Prescriptions: New (DME) glucometer testing kit See Rx Instructions .Route .MEDSUPPLY Qty: 1 0RF Rx Instructions: Glucometer testing kit, - Lantus No. 100 -strips #100 chlorthalidone 25 mg Tablet 25 mg PO DAILY 30 Days Qty: 30 0RF insulin aspart U-100 [Novolog FlexPen U-100 Insulin] 100 unit/mL (3 mL) insulin pen See Rx Instructions .ROUTE .COMPLEX MDD 10 Qty: 15 0RF Rx Instructions: Inject, subcu, 3 times daily, after meals based on sliding scale prednisone 20 mg Tablet 40 mg PO DAILY 5 Days Qty: 10 0RF diltiazem HCl [Cardizem CD] 360 mg capsule,extended release 24hr 360 mg PO Q24H 30 Days Qty: 30 0RF doxycycline hyclate 100 mg tablet 100 mg PO BID 5 Days Qty: 10 0RF fluticasone propion-salmeterol [Advair Diskus] 100-50 mcg/dose blister with device 1 inh inhalation DAILY 30 Days Qty: 60 0RF Continued magnesium oxide 250 mg magnesium tablet 250 mg PO DAILY Xarelto 20 mg tablet 20 mg PO DAILY Qty: 90 3RF Rx Instructions: 340B nitroglycerin 0.4 mg tablet, sublingual 0.4 mg sublingual Q5M PRN (Reason: chest pain) Qty: 25 0RF Rx Instructions: do not exceed 3 doses per episode atorvastatin 40 mg Tablet 40 mg PO BEDTIME Qty: 90 0RF ascorbic acid (vitamin C) [Vitamin C] 500 mg Tablet 1,000 mg PO QAM lorazepam 0.5 mg Tablet 0.25 mg PO BID PRN (Reason: Anxiety) Qty: 8 0RF gabapentin 100 mg capsule 200 mg PO BEDTIME pantoprazole 40 mg Tablet,Delayed Release (Dr/Ec) 40 mg PO BID Qty: 60 0RF albuterol sulfate 90 mcg/actuation HFA aerosol inhaler 2 inh INHALATION Q4H PRN (Reason: shortness of breath or wheezing) 30 Days Qt y: 8.5 1RF furosemide 40 mg tablet 40 mg PO BID 30 Days Qty: 60 0RF Changed potassium chloride 20 mEq tablet extended release 10 meq PO BID 30 Days Qty: 30 0RF Discontinued methylprednisolone [Medrol (Re[place]aldo)] 4 mg tablets,dose pack See Rx Instructions .ROUTE .COMPLEX Qty: 21 0RF Rx Instructions: orally per package directions diltiazem HCl 300 mg capsule,extended release 24 hr 300 mg PO DAILY Qty: 30 0RF DILT-XR 180 mg capsule,ext.rel 24h degradable 180 mg PO DAILY Discharge Orders: Discharge Order (Routine); Ordered 11/14/23 Ordered By: Cosmo Morgan Referrals: FernandorAndrea MD [Physician] - 2 weeks Brayan Cotto M.D [Physician] - 1 month June Merchant [Primary Care Provider] - 11/17/23 10:15 am Discharge Diet: Cardiac Discharge Activity: Resume usual activity Patient Instructions: Opioid Safety Activity Restrictions/Additional Instructions: - Please hydrate well close ?monitor for wheezing, ? Follow-up with pulmonary in 1 to 2 weeks, ? Follow-up with cardiology 1 to 2 weeks Discharge Attestations Time Spent in Discharge Care*: greater than 30 min Quality Metrics Clinical Quality Measures [ No reported AMI, CVA or VTE this stay] Coding Level of Care Code 09412 Total time (in minutes) for Discharge: 45 Diagnoses Diastolic heart failure I50.30 Atrial fibrillation I48.91 Chronic respiratory failure with hypoxia and hypercapnia J96.11; J96.12 History of pulmonary embolism Z86.711 Multifocal pneumonia J18.9 RSV (respiratory syncytial virus pneumonia) J12.1
[2023-11-14] MEDS: LORazepam 0.5 mg Tablet 0.25 MG PO (13:46)
== END 2023-11-14 14:00 | disposition home or self-care (01) | DRG 291 ==
LOC: ER 11-03 01:35 → ICU 11-03 01:53 → MEDSURG 11-04 17:33
PROVIDERS: Internal Medicine; Admitting Provider Student in an Organized Health Care Education/Training Program; Emergency Provider Family Medicine; PCP Nurse Practitioner Family; Visit Provider Family Medicine
DX: I11.0 Hypertensive heart disease with heart failure (principal); I50.33 Acute on chronic diastolic (congestive) heart failure; J96.22 Acute and chronic respiratory failure with hypercapnia; J96.21 Acute and chronic respiratory failure with hypoxia; J12.1 Respiratory syncytial virus pneumonia; J44.0 Chronic obstructive pulmonary disease with (acute) lower respiratory infection; J44.1 Chronic obstructive pulmonary disease with (acute) exacerbation; I48.91 Unspecified atrial fibrillation; I27.20 Pulmonary hypertension, unspecified; F32.A Depression, unspecified; I25.10 Atherosclerotic heart disease of native coronary artery without angina pectoris; G47.33 Obstructive sleep apnea (adult) (pediatric); E78.5 Hyperlipidemia, unspecified; G25.81 Restless legs syndrome; G89.29 Other chronic pain; M54.9 Dorsalgia, unspecified; F41.9 Anxiety disorder, unspecified; Z66 Do not resuscitate; Z86.711 Personal history of pulmonary embolism; Z86.718 Personal history of other venous thrombosis and embolism; Z85.44 Personal history of malignant neoplasm of other female genital organs; Z87.891 Personal history of nicotine dependence; Z11.52 Encounter for screening for COVID-19; Z99.81 Dependence on supplemental oxygen; Z79.01 Long term (current) use of anticoagulants
CPT/HCPCS: 36415; 36416; 36600; 51702; 71045; 71250; 80048; 80051; 80053; 80202; 82330; 82805; 82962; 83036; 83605; 83735; 83880; 84100; 84145; 84484; 85025; 85610; 86140; 87040; 87486; 87581; 87633; 93005; 94640; 94660; 96372; 96374; 97110; 97116; 97161; 97530; 99285; J0692; J0696; J1815; J1940; J2405; J2765; J2920; J2930; J3370; J3480; J3490; J7512; J7613; J7626; Q3014

== ENCOUNTER 2023-11-21 13:03 | Emergency (ER) | payer MEDICARE, SELFPAY ==
[2023-11-21 13:05] VITALS: BP 135/75; PULSE 73; RESP 16; TEMP 36.5; O2SAT 95
--- NOTE | 2023-11-21 14:03 | ED_ITS ---
HPI - Weakness General: Chief complaint: Weakness Stated complaint: LEFT HIP PAIN Time Seen by Provider: 11/21/23 13:07 History of Present Illness: 88-year-old female presents emergency de partment via EMS personnel. The patient states that she and her are moving to [place] to assisted living and they are selling their house. She does appear to be very tearful and upset because of it is only her and her that are packing her house. She states that she started having sudden left hip pain that she describes is a 8 out of 10. She denies trauma or other known injury. She states that she was recently admitted to the hospital for atrial fibrillation and was discharged on November 14, 2023. She denies numbness or tingling to the extremity. Review of Systems General: Reports: 10 or more systems reviewed and unremarkable except in HPI and below Musc: Reports: extremity pain [facility] ED PFSH: Medical History (Updated 11/21/23 @ 15:31 by Jalil Nieto MD) Atrial fibrillation Chronic respiratory failure with hypoxia and hypercapnia Acute on chronic respiratory failure with hypoxia and hypercapnia Hallucinations, unspecified Elevated troponin Medication side effects present Chest pain Acute encephalopathy Dysphagia Pulmonary hypertension Dysphagia Melanotic stools Acute blood loss anemia (ABLA) Chest pain Dyspnea or other respiratory complaints Post-op pain Congestive heart failure Fusion of spine Atrial fibrillation Anemia Bradycardia Depression Coronary artery disease Obstructive sleep apnea History of cancer of vulva DVT (deep venous thrombosis) Pulmonary embolism Lumbar radiculopathy Hypertension Hyperlipidemia COPD (chronic obstructive pulmonary disease) Uses trilogy at night with 2 L. Typically not on oxygen during day. Restless leg syndrome Chronic back pain Depression with anxiety History of pulmonary embolism Hx of blood clots Surgical History History of hip replacement History of tonsillectomy History of knee replacement History of coronary artery stent placement Presence of vena cava filter History of back surgery H/O: hysterectomy Family History Other Cancer Chronic back pain Social History Smoking and tobacco/nicotine status: former use of tobacco/nicotine Alcohol intake: current Alcohol intake frequency: few times a month Caregiver/support person: Yes Lives independently: Yes Household members: spouse Housing: House Physical Exam Narrative: EXAM NARRATIVE: Constitutional: the patient appears well nourished and with normal development. Vital signs reviewed as documented. HENMT: Normocephalic, atraumatic. External ears normal appearance without drainage. Nose without drainage, normal appearance. Mucus membranes moist. Neck is supple, No jugular venous distension, trachea is midline, no appreciable carotid bruits. No lymphadenopathy. No meningeal signs. Flexion, extension and lateral rotation is without pain. Eyes: Pupils are equal, round, reactive to light and accommodation. No scleral icterus. Extra-ocular movement are intact. Thorax is symmetrical and with equal rise and fall with respirations. Resp: Lungs are clear to auscultation. No wheezes, rales, crackles or ronchi at present. Cardio: Regular rate and rhythm. Positive S1, S2. No appreciable murmurs, rubs or gallops. GI: Abdominal exam reveals normal bowel sounds to all quadrants. No organomegaly. No obvious palpable masses noted. No hepatomegally appreciated. Soft, non-tender to palpation. Extremity: Extremities are non-edematous and both femoral and pedal pulses are 2+ and equal bilaterally. Moves all extremities well, sensation in all extremities. Neuro: Alert and oriented x4, person, place, time and situation. Cranial nerves II through XII are grossly intact, there is no focal neurological deficits that I can appreciate at present. Motor strength in the upper and lower extremities are equal and bilateral 5/5. Psych: Cooperative, calm, normal thought process, appropriate judgment. Skin: No lesions, rashes. No gross abnormalities noted. Back: Symmetrical, no obvious deformity, No CVA tenderness Course Vital Signs: Vital signs: Vital Signs Temperature 97.7 F 11/21/23 13:05 Pulse Rate 85 11/21/23 16:02 Respiratory Rate 16 11/21/23 16:02 Blood Pressure 138/76 11/21/23 16:02 Pulse Oximetry 99 11/21/23 16:02 Oxygen Delivery Me thod Room Air 11/21/23 14:41 Oxygen Flow Rate 2 11/21/23 13:05 MDM - Weakness Medical Decision Making 88-year-old female presents with left hip pain that is nontraumatic. I will provide her pain medication and anti-inflammatory and have her follow-up with her primary care provider. Medical Records I reviewed the patient's medical records. Lab Data Radiology Impressions Hip/Pelvis X-Ray 11/21/23 14:03 IMPRESSION: Degenerative and postsurgical changes without acute findings. All radiology interpretation(s) finalized by discharge Discharge Plan Discharge Patient Disposition: Home Clinical Impression: Osteoarthritis of left hip Condition: Stable Prescriptions: New hydrocodone-acetaminophen 5-325 mg tablet 1 tab PO Q8H PRN (Reason: pain) Qty: 14 0RF No Action magnesium oxide 250 mg magnesium tablet 250 mg PO DAILY Xarelto 20 mg tablet 20 mg PO DAILY Qty: 90 3RF Rx Instructions: 340B nitroglycerin 0.4 mg tablet, sublingual 0.4 mg sublingual Q5M PRN (Reason: chest pain) Qty: 25 0RF Rx Instructions: do not exceed 3 doses per episode atorvastatin 40 mg Tablet 40 mg PO BEDTIME Qty: 90 0RF ascorbic acid (vitamin C) [Vitamin C] 500 mg Tablet 1,000 mg PO QAM lorazepam 0.5 mg Tablet 0.25 mg PO BID PRN (Reason: Anxiety) Qty: 8 0RF gabapentin 100 mg capsule 200 mg PO BEDTIME pantoprazole 40 mg Tablet,Delayed Release (Dr/Ec) 40 mg PO BID Qty: 60 0RF chlorthalidone 25 mg Tablet 25 mg PO DAILY 30 Days Qty: 30 0RF Novolog FlexPen U-100 Insulin 100 unit/mL (3 mL) insulin pen See Rx Instructions .ROUTE .COMPLEX MDD 10 Qty: 15 0RF Rx Instructions: Inject, subcu, 3 times daily, after meals based on sliding scale Cardizem CD 360 mg capsule,extended release 24hr 360 mg PO Q24H 30 Days Qty: 30 0RF furosemide 40 mg tablet 40 mg PO BID 30 Days Qty: 60 0RF albuterol sulfate 90 mcg/actuation HFA aerosol inhaler 2 inh INHALATION Q4H PRN (Reason: shortness of breath or wheezing) 30 Days Qty: 8.5 1RF potassium chloride 20 mEq tablet extended release 10 meq PO BID 30 Days Qty: 30 0RF Advair Diskus 100-50 mcg/dose blister with device 1 inh inhalation DAILY 30 Days Qty: 60 0RF (DME) glucometer testing kit See Rx Instructions .Route .MEDSUPPLY Qty: 1 0RF Rx Instructions: Glucometer testing kit, - Lantus No. 100 -strips #100 Discharge Orders: Discharge ED (Routine); Ordered 11/21/23 Ordered By: Jalil Nieto Referrals: June Merchant [Primary Care Provider] - Discharge Diet: Advance as tolerated Discharge Activity: Resume usual activity Patient Instructions: Opioid Safety, Pain Management Activity Restrictions/Additional Instructions: Activity Restrictions/Additional Instructions: Thank you for choosing [facility] for your healthcare needs today. Please realize that you were seen in the Emergency Department and that we are providing you with an emergency medical screening exam and this may not be a complete and all inclusive of all the testing and or medical work-up that you may need to determine your ailment or severity of your illness. It is very important that you follow-up as instructed with your Primary care provider or Specialist for additional evaluation and to discuss your medical treatment plan. You may return to the Emergency Department should you have concerns or if your condition changes or worsens in any way. Coding Level of Care Code ED [employer] Supplier for Garett Leija
--- NOTE | 2023-11-21 14:03 | XRR_ITS ---
PROCEDURE INFORMATION: Exam: XR Bilateral Hips Exam date and time: 11/21/2023 2:17 PM Age: 88 years old Clinical indication: Prior surgery; Surgery date: 6+ months; Surgery type: RT hip replacement; Patient HX: Bilateral hip pain with limited rom; Muscle spasms TECHNIQUE: Imaging protocol: Radiologic exam of the bilateral hips. Views: 2 views of hips with pelvis when performed. COMPARISON: CT abdomen pelvis wo con [id number] 09/26/2023 7:02 PM FINDINGS: Bones/joints: No fracture or malalignment. Right hip arthroplasty without hardware complication. Mild left hip degenerative changes. Soft tissues: No acute findings. XR/XR hip BI 3-4V wo/w pel [id number] IMPRESSION: Degenerative and postsurgical changes without acute findings.
[2023-11-21 14:41] VITALS: BP 130/83; PULSE 72; RESP 18; O2SAT 99
[2023-11-21] MEDS: ketorolac 30 mg/mL INJ IVP (15:16)
[2023-11-21] MEDS: dexamethasone 10 mg/mL INJ IVP (15:16)
[2023-11-21 16:02] VITALS: BP 138/76; PULSE 85; RESP 16; O2SAT 99
== END 2023-11-21 16:03 | disposition home or self-care (01) ==
PROVIDERS: Emergency Provider Internal Medicine; PCP Nurse Practitioner Family
DX: M16.12 Unilateral primary osteoarthritis, left hip (principal); Z79.4 Long term (current) use of insulin; Z87.891 Personal history of nicotine dependence; I11.0 Hypertensive heart disease with heart failure; I50.9 Heart failure, unspecified; I25.10 Atherosclerotic heart disease of native coronary artery without angina pectoris; Z85.44 Personal history of malignant neoplasm of other female genital organs; E78.5 Hyperlipidemia, unspecified; J44.9 Chronic obstructive pulmonary disease, unspecified
CPT/HCPCS: 73522; 96374; 96375; 99284; J1100; J1885

== ENCOUNTER 2023-11-23 13:35 | Emergency (ER) | payer MEDICARE, SELFPAY ==
[2023-11-23 13:41] VITALS: BP 125/77; PULSE 79; RESP 18; TEMP 36.7; O2SAT 90
--- NOTE | 2023-11-23 13:49 | USR_ITS ---
PROCEDURE INFORMATION: Exam: US Duplex Left Lower Extremity Arteries Or Arterial Bypass Grafts Exam date and time: 11/23/2023 2:03 PM Age: 88 years old Clinical indication: Pain; Leg, lower; Left; Additional info: Cold, mottling, no pulses, pain TECHNIQUE: Imaging protocol: Left Real-time duplex scan of the arteries or arterial bypass grafts of the left lower extremity with 2-D morin scale, color Doppler flow and spectral waveform analysis. Images documented and saved. COMPARISON: CT abdomen pelvis con [id number] 09/26/2023 7:02 PM FINDINGS: There is vascular occlusion with no identifiable blood flow from the level of the proximal left iliac artery distally. 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 This begins at the level of the iliac artery. Technology notes indicate a preliminary report was given to the patient's healthcare provider.
--- NOTE | 2023-11-23 13:50 | W.ED.EXTPRO ---
Documented by User: JANNETH Mane 11/23/23 15:19 HPI - Extremity Problem General: Chief complaint: Extremity Injury, Lower Stated complaint: Poss DVT Time Seen by Provider: 11/23/23 13:41 Source: patient and EMS Mode of arrival: EMS Limitations: no limitations History of Present Illness: Patient is a 88 year old female with history of atrial fibrillation, history of DVT, on chronic anticoagulation with Xarelto, ROBIN using 2L oxygen at night, CHF with recent recurrent admissions, and atrial fibrillation here for complaints of left lower extremity pain and discoloration and concern for a blood clot. She reportedly has a history of DVT for which she takes Xarelto however EMS states they did not visualize any blood thinners with her meds when they picked her up. Patient was seen here in our ED two days ago due to left hip pain. It was felt this was related to osteoarthritis as she provided a history that she had been busy moving/packing up their home and moving to [place]. XR of the hip at that time was negative for acute injury. According to provider notes, extremity was neurovascularly intact with normal femoral and distal pulses at that visit. MD Complaint: extremity pain and cold extremity Onset (ago): day(s) Pain Consistency: constant Location: left and lower extremity Radiation: none Relieving factors: nothing Exacerbating factors: nothing Associated symptoms: Reports no associated symptoms; Deny chest pain or fever(s) Context: history of DVT Review of Systems Const: Denies: fever(s), chills, body aches, fatigue or malaise Card: Denies: chest pain Resp: Reports: dyspnea (chronic-at baseline) GI: Denies: abdominal pain, nausea, vomiting or diarrhea : Denies: flank pain or dysuria Musc: Reports: extremity pain (L LE); Denies: neck pain, back pain, extremity swelling, joint pain or joint swelling Neuro: Reports: numbness in extremities (L LE), sensory changes and difficulty walking; Denies: headache(s) PFS ED PFSH: Medical History Atrial fibrillation Chronic respiratory failure with hypoxia and hypercapnia Acute on chronic respiratory failure with hypoxia and hypercapnia Hallucinations, unspecified Elevated troponin Medication side effects present Chest pain Acute encephalopathy Dysphagia Pulmonary hypertension Dysphagia Melanotic stools Acute blood loss anemia (ABLA) Chest pain Dyspnea or other respiratory complaints Post-op pain Congestive heart failure Fusion of spine Atrial fibrillation Anemia Bradycardia Depression Coronary artery disease Obstructive sleep apnea History of cancer of vulva DVT (deep venous thrombosis) Pulmonary embolism Lumbar radiculopathy Hypertension Hyperlipidemia COPD (chronic obstructive pulmonary disease) Uses trilogy at night with 2 L. Typically not on oxygen during day. Restless leg syndrome Chronic back pain Depression with anxiety History of pulmonary embolism Hx of blood clots Surgical History History of hip replacement History of tonsillectomy History of knee replacement History of coronary artery stent placement Presence of vena cava filter History of back surgery H/O: hysterectomy Family History Other Cancer Chronic back pain Social History Smoking and tobacco/nicotine status: former use of tobacco/nicotine Alcohol intake: current Alcohol intake frequency: few times a month Caregiver/support person: Yes Lives independently: Yes Household members: spouse Housing: House Physical Exam Const: COMMON NORMALS: no acute distress, average body habitus, patient oriented x3, no limitations, healthy appearing, alert and well nourished GENERAL APPEARANCE: cooperative ORIENTATION/CONSCIOUSNESS: Yes awake, Yes oriented to person, Yes oriented to place and Yes oriented to time Chest: COMMONS NORMALS: normal inspection of the chest Resp: COMMON NORMALS: normal respiratory effort Cardio: COMMON NORMALS: regular rate RATE: regular rate RHYTHM: abnormal rhythm irregularly irregular GI: COMMON NORMALS: Normal to inspection, nondistended, normoactive bowel sounds present, Soft to palpation, non-tender and no masses PALPATION: Yes Soft to palpation Back/Pelvis: COMMON NORMALS: thoracic and lumbar spine normal to inspection Extremity: COMMON NORMALS: no joint enlargement, no calf tenderness and no pedal edema LEFT LOWER EXTREMITY: Yes knee joint, Yes lower leg, Yes ankle joint and Yes foot & digits OTHER: patient clinically has a cold left lower leg starting at her knee distally; she complains of pain and numbness to the limb; limb has extremely delayed cap refill; pulses cannot be palpated either manually or with a doppler, skin is mottled Neuro: COMMON NORMALS: patient oriented x3 SENSORIUM/ORIENTATION: Yes alert, Yes oriented to person, Yes oriented to place and Yes oriented to time Course Consultations: Consultation #1: Dr. Valverde vascular; recommends transfer to ED and he will take to OR from there [facility] ED [facility] Vital Signs: Vital signs: Vital Signs Temperature 98.1 F 11/23/23 13:41 Pulse Rate 72 11/23/23 15:27 Respiratory Rate 15 11/23/23 15:27 Blood Pressure 127/77 11/23/23 15:27 Pulse Oximetry 95 11/23/23 15:27 Oxygen Delivery Me thod Room Air 11/23/23 13:41 MDM - Extremity (Nontraumatic) Medical Decision Making Patient presents to the ED today an acute ischemic limb. Ultrasound upon arrival was promptly ordered and after confirmation of arterial thrombus, heparin ordered. Dr. German aware of this patient and has also evaluated her. Official ultrasound results are listed below: Patient will be flown to [facility] ED and taken straight to OR from there. FINDINGS: There is vascular occlusion with no identifiable blood flow from the level of the proximal left iliac artery distally. 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 This begins at the level of the iliac artery. FINDINGS: The aorta is patent from its proximal segment distally into the bifurcation with absent flow in the distal left iliac artery. No aortic aneurysm. Iliac artery calibers are normal. Atherosclerotic plaquing is seen. US/CV duplex aorta [id number] IMPRESSION: Patent aorta with no aneurysm. Occluded left iliac artery distally. Medical Records I reviewed the patient's medical records. Lab Data I reviewed the patient's lab results. 11/23/23 14:10 11/23/23 14:10 Radiology Impressions Duplex Scan Lower Extremity Artery 11/23/23 13:49 IMPRESSION: Complete vascular occlusion in the left lower extremity. This begins at the level of the iliac artery. Technology notes indicate a preliminary report was given to the patient's healthcare provider. Aorta Iliac Vascular Ultrasound 11/23/23 14:08 IMPRESSION: Patent aorta with no aneurysm. Occluded left iliac artery distally. Laboratory Results WBC 15.38 10^3/uL (3.29-11.43) H 11/23/23 14:10 RBC 5.06 10^6/uL (3.85-5.65) 11/23/23 14:10 Hgb 15.50 g/dL (11.27-16.99) 11/23/23 14:10 Hct 46.7 % (36-47) 11/23/23 14:10 MCV 92.3 fl (85-98) 11/23/23 14:10 MCH 30.6 pg (27-33) 11/23/23 14:10 MCHC 33.2 g/dL (30-55) 11/23/23 14:10 RDW 13.4 % (12.1-15.1) 11/23/23 14:10 Plt Count 147 10^3/cmm (157-399) L 11/23/23 14:10 MPV 10.2 fL (7.4-10.4) 11/23/23 14:10 Neut % (Auto) 86.0 % 11/23/23 14:10 Lymph % (Auto) 8.6 % 11/23/23 14:10 Parke % (Auto) 4.7 % 11/23/23 14:10 Eos % (Auto) 0.1 % 11/23/23 14:10 Baso % (Auto) 0.1 % 11/23/23 14:10 Neut # (Auto) 13.24 10^3/uL (1.8-7.7) H 11/23/23 14:10 Lymph # (Auto) 1.3 10^3/uL (0.8-4.8) 11/23/23 14:10 Parke # (Auto) 0.7 10^3/uL (0.2-0.9) 11/23/23 14:10 Eos # (Auto) 0.0 10^3/uL (0.0-0.8) 11/23/23 14:10 Baso # (Auto) 0.0 10^3/uL (0.0-0.1) 11/23/23 14:10 Nucleated RBC % (auto) 0 % 11/23/23 14:10 Nucleated RBCs # 0.0 /100WBC 11/23/23 14:10 PT 13.80 SECONDS (12.1-14.9) 11/23/23 14:10 INR 1.02 (0.8-1.2) 11/23/23 14:10 APTT 19.2 SECONDS (23.9-36.7) L 11/23/23 14:10 Sodium 132 mmol/L (136-145) L 11/23/23 14:10 Potassium 3.1 mmol/L (3.5-5.1) L 11/23/23 14:10 Chloride 79 mmol/L (98-107) L 11/23/23 14:10 Carbon Dioxide 43 mmol/L (22-29) H* 11/23/23 14:10 Anion Gap 13.1 (5-19) 11/23/23 14:10 BUN 67 mg/dL (8-23) H 11/23/23 14:10 Creatinine 1.1 mg/dL (0.5-0.9) H 11/23/23 14:10 GFR Calculation Not Reportable 11/23/23 14:10 Glucose 270 mg/dL (65-115) H 11/23/23 14:10 Calculated Osmolality 303 mOsm/kg (285-295) H 11/23/23 14:10 Calcium 9.8 mg/dL (8.5-10.5) 11/23/23 14:10 Total Bilirubin 1.8 mg/dL (0.15-1.2) H 11/23/23 14:10 AST 96 U/L (0-32) H 11/23/23 14:10 ALT 40 U/L (0-33) H 11/23/23 14:10 Alkaline Phosphatase 146 U/L (35-105) H 11/23/23 14:10 Total Protein 6.3 g/dL (6.6-8.7) L 11/23/23 14:10 Albumin 3.7 g/dL (3.5-5.2) 11/23/23 14:10 Globulin 2.6 g/dL (1.3-4.6) 11/23/23 14:10 All radiology interpretation(s) finalized by discharge Discharge Plan Discharge Patient Disposition: Transfer to ED Clinical Impression: Acute lower extremity ischemia, 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 Condition: Stable Prescriptions: No Action magnesium oxide 250 mg magnesium tablet 250 mg PO DAILY Xarelto 20 mg tablet 20 mg PO DAILY Qty: 90 3RF Rx Instructions: 340B nitroglycerin 0.4 mg tablet, sublingual 0.4 mg sublingual Q5M PRN (Reason: chest pain) Qty: 25 0RF Rx Instructions: do not exceed 3 doses per episode atorvastatin 40 mg Tablet 40 mg PO BEDTIME Qty: 90 0RF ascorbic acid (vitamin C) [Vitamin C] 500 mg Tablet 1,000 mg PO QAM lorazepam 0.5 mg Tablet 0.25 mg PO BID PRN (Reason: Anxiety) Qty: 8 0RF gabapentin 100 mg capsule 200 mg PO BEDTIME pantoprazole 40 mg Tablet,Delayed Release (Dr/Ec) 40 mg PO BID Qty: 60 0RF chlorthalidone 25 mg Tablet 25 mg PO DAILY 30 Days Qty: 30 0RF Novolog FlexPen U-100 Insulin 100 unit/mL (3 mL) insulin pen See Rx Instructions .ROUTE .COMPLEX MDD 10 Qty: 15 0RF Rx Instructions: Inject, subcu, 3 times daily, after meals based on sliding scale Cardizem CD 360 mg capsule,extended release 24hr 360 mg PO Q24H 30 Days Qty: 30 0RF furosemide 40 mg tablet 40 mg PO BID 30 Days Qty: 60 0RF albuterol sulfate 90 mcg/actuation HFA aerosol inhaler 2 inh INHALATION Q4H PRN (Reason: shortness of breath or wheezing) 30 Days Qty: 8.5 1RF potassium chloride 20 mEq tablet extended release 10 meq PO BID 30 Days Qty: 30 0RF Advair Diskus 100-50 mcg/dose blister with device 1 inh inhalation DAILY 30 Days Qty: 60 0RF (DME) glucometer testing kit See Rx Instructions .Route .MEDSUPPLY Qty: 1 0RF Rx Instructions: Glucometer testing kit, - Lantus No. 100 -strips #100 hydrocodone-acetaminophen 5-325 mg tablet 1 tab PO Q8H PRN (Reason: pain) Qty: 14 0RF Referrals: June Merchant [Primary Care Provider] - Coding Level of Care Code ED Insurance Follow Up Rep for Chg Fwd Documented by User: Bin German MD 11/23/23 15:31 HPI - Extremity Problem General: Chief complaint: Extremity Injury, Lower Stated complaint: Poss DVT Time Seen by Provider: 11/23/23 13:41 [facility] ED PFSH: Medical History Atrial fibrillation Chronic respiratory failure with hypoxia and hypercapnia Acute on chronic respiratory failure with hypoxia and hypercapnia Hallucinations, unspecified Elevated troponin Medication side effects present Chest pain Acute encephalopathy Dysphagia Pulmonary hypertension Dysphagia Melanotic stools Acute blood loss anemia (ABLA) Chest pain Dyspnea or other respiratory complaints Post-op pain Congestive heart failure Fusion of spine Atrial fibrillation Anemia Bradycardia Depression Coronary artery disease Obstructive sleep apnea History of cancer of vulva DVT (deep venous thrombosis) Pulmonary embolism Lumbar radiculopathy Hypertension Hyperlipidemia COPD (chronic obstructive pulmonary disease) Uses trilogy at night with 2 L. Typically not on oxygen during day. Restless leg syndrome Chronic back pain Depression with anxiety History of pulmonary embolism Hx of blood clots Surgical History History of hip replacement History of tonsillectomy History of knee replacement History of coronary artery stent placement Presence of vena cava filter History of back surgery H/O: hysterectomy Family History Other Cancer Chronic back pain Social History Smoking and tobacco/nicotine status: former use of tobacco/nicotine Alcohol intake: current Alcohol intake frequency: few times a month Caregiver/support person: Yes Lives independently: Yes Household members: spouse Housing: House Course Vital Signs: Vital signs: Vital Signs Temperature 98.1 F 11/23/23 13:41 Pulse Rate 72 11/23/23 15:27 Respiratory Rate 15 11/23/23 15:27 Blood Pressure 127/77 11/23/23 15:27 Pulse Oximetry 95 11/23/23 15:27 Oxygen Delivery Me thod Room Air 11/23/23 13:41 MDM - Extremity (Nontraumatic) Medical Decision Making Patient presents to the ED today an acute ischemic limb. Ultrasound upon arrival was promptly ordered and after confirmation of arterial thrombus, heparin ordered. Dr. German aware of this patient and has also evaluated her. Official ultrasound results are listed below: Patient will be flown to [facility] ED and taken straight to OR from there. FINDINGS: There is vascular occlusion with no identifiable blood flow from the level of the proximal left iliac artery distally. 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 This begins at the level of the iliac artery. FINDINGS: The aorta is patent from its proximal segment distally into the bifurcation with absent flow in the distal left iliac artery. No aortic aneurysm. Iliac artery calibers are normal. Atherosclerotic plaquing is seen. US/CV duplex aorta [id number] IMPRESSION: Patent aorta with no aneurysm. Occluded left iliac artery distally. Patient presents here with ischemic limb she does have an occlusion noted here did start on heparin I agree with midlevel's assessment I saw patient as well she does have a cold left foot will transfer her to [facility] for higher level of care vascular Lab Data 11/23/23 14:10 11/23/23 14:10 Radiology Impressions Duplex Scan Lower Extremity Artery 11/23/23 13:49 IMPRESSION: Complete vascular occlusion in the left lower extremity. This begins at the level of the iliac artery. Technology notes indicate a preliminary report was given to the patient's healthcare provider. Aorta Iliac Vascular Ultrasound 11/23/23 14:08 IMPRESSION: Patent aorta with no aneurysm. Occluded left iliac artery distally. Laboratory Results WBC 15.38 10^3/uL (3.29-11.43) H 11/23/23 14:10 RBC 5.06 10^6/uL (3.85-5.65) 11/23/23 14:10 Hgb 15.50 g/dL (11.27-16.99) 11/23/23 14:10 Hct 46.7 % (36-47) 11/23/23 14:10 MCV 92.3 fl (85-98) 11/23/23 14:10 MCH 30.6 pg (27-33) 11/23/23 14:10 MCHC 33.2 g/dL (30-55) 11/23/23 14:10 RDW 13.4 % (12.1-15.1) 11/23/23 14:10 Plt Count 147 10^3/cmm (157-399) L 11/23/23 14:10 MPV 10.2 fL (7.4-10.4) 11/23/23 14:10 Neut % (Auto) 86.0 % 11/23/23 14:10 Lymph % (Auto) 8.6 % 11/23/23 14:10 Parke % (Auto) 4.7 % 11/23/23 14:10 Eos % (Auto) 0.1 % 11/23/23 14:10 Baso % (Auto) 0.1 % 11/23/23 14:10 Neut # (Auto) 13.24 10^3/uL (1.8-7.7) H 11/23/23 14:10 Lymph # (Auto) 1.3 10^3/uL (0.8-4.8) 11/23/23 14:10 Parke # (Auto) 0.7 10^3/uL (0.2-0.9) 11/23/23 14:10 Eos # (Auto) 0.0 10^3/uL (0.0-0.8) 11/23/23 14:10 Baso # (Auto) 0.0 10^3/uL (0.0-0.1) 11/23/23 14:10 Nucleated RBC % (auto) 0 % 11/23/23 14:10 Nucleated RBCs # 0.0 /100WBC 11/23/23 14:10 PT 13.80 SECONDS (12.1-14.9) 11/23/23 14:10 INR 1.02 (0.8-1.2) 11/23/23 14:10 APTT 19.2 SECONDS (23.9-36.7) L 11/23/23 14:10 Sodium 132 mmol/L (136-145) L 11/23/23 14:10 Potassium 3.1 mmol/L (3.5-5.1) L 11/23/23 14:10 Chloride 79 mmol/L (98-107) L 11/23/23 14:10 Carbon Dioxide 43 mmol/L (22-29) H* 11/23/23 14:10 Anion Gap 13.1 (5-19) 11/23/23 14:10 BUN 67 mg/dL (8-23) H 11/23/23 14:10 Creatinine 1.1 mg/dL (0.5-0.9) H 11/23/23 14:10 GFR Calculation Not Reportable 11/23/23 14:10 Glucose 270 mg/dL (65-115) H 11/23/23 14:10 Calculated Osmolality 303 mOsm/kg (285-295) H 11/23/23 14:10 Calcium 9.8 mg/dL (8.5-10.5) 11/23/23 14:10 Total Bilirubin 1.8 mg/dL (0.15-1.2) H 11/23/23 14:10 AST 96 U/L (0-32) H 11/23/23 14:10 ALT 40 U/L (0-33) H 11/23/23 14:10 Alkaline Phosphatase 146 U/L (35-105) H 11/23/23 14:10 Total Protein 6.3 g/dL (6.6-8.7) L 11/23/23 14:10 Albumin 3.7 g/dL (3.5-5.2) 11/23/23 14:10 Globulin 2.6 g/dL (1.3-4.6) 11/23/23 14:10 Critical Care Time Critical Care Time: Critical Care Time: Yes Total Critical Care Time: 45 Attestation: The high probability of a clinically significant, sudden or life threatening deterioration of the patient's vasc system(s) required my full and direct attention, intervention and personal management. The critical care time is as shown. 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 Condition: Stable Prescriptions: No Action magnesium oxide 250 mg magnesium tablet 250 mg PO DAILY Xarelto 20 mg tablet 20 mg PO DAILY Qty: 90 3RF Rx Instructions: 340B nitroglycerin 0.4 mg tablet, sublingual 0.4 mg sublingual Q5M PRN (Reason: chest pain) Qty: 25 0RF Rx Instructions: do not exceed 3 doses per episode atorvastatin 40 mg Tablet 40 mg PO BEDTIME Qty: 90 0RF ascorbic acid (vitamin C) [Vitamin C] 500 mg Tablet 1,000 mg PO QAM lorazepam 0.5 mg Tablet 0.25 mg PO BID PRN (Reason: Anxiety) Qty: 8 0RF gabapentin 100 mg capsule 200 mg PO BEDTIME pantoprazole 40 mg Tablet,Delayed Release (Dr/Ec) 40 mg PO BID Qty: 60 0RF chlorthalidone 25 mg Tablet 25 mg PO DAILY 30 Days Qty: 30 0RF Novolog FlexPen U-100 Insulin 100 unit/mL (3 mL) insulin pen See Rx Instructions .ROUTE .COMPLEX MDD 10 Qty: 15 0RF Rx Instructions: Inject, subcu, 3 times daily, after meals based on sliding scale Cardizem CD 360 mg capsule,extended release 24hr 360 mg PO Q24H 30 Days Qty: 30 0RF furosemide 40 mg tablet 40 mg PO BID 30 Days Qty: 60 0RF albuterol sulfate 90 mcg/actuation HFA aerosol inhaler 2 inh INHALATION Q4H PRN (Reason: shortness of breath or wheezing) 30 Days Qty: 8.5 1RF potassium chloride 20 mEq tablet extended release 10 meq PO BID 30 Days Qty: 30 0RF Advair Diskus 100-50 mcg/dose blister with device 1 inh inhalation DAILY 30 Days Qty: 60 0RF (DME) glucometer testing kit See Rx Instructions .Route .MEDSUPPLY Qty: 1 0RF Rx Instructions: Glucometer testing kit, - Lantus No. 100 -strips #100 hydrocodone-acetaminophen 5-325 mg tablet 1 tab PO Q8H PRN (Reason: pain) Qty: 14 0RF Referrals: June Merchant [Primary Care Provider] - Coding Level of Care Code ED Insurance Follow Up Rep for Chg Heladio
--- NOTE | 2023-11-23 14:08 | USR_ITS ---
PROCEDURE INFORMATION: Exam: US Duplex Scan of Aorta, Inferior Vena Cava, Iliac Vasculature, or Bypass Grafts, Complete Exam date and time: 11/23/2023 2:13 PM Age: 88 years old Clinical indication: Other: Left leg; Foot pain; Additional info: No L femoral pulse TECHNIQUE: Imaging protocol: Real-time duplex ultrasound scan of the Aorta, IVC, iliac vasculature, or bypass grafts in the abdomen with color Doppler flow and spectral waveform analysis with image documentation. Complete exam. COMPARISON: CT chest [facility] [id number] 11/06/2023 12:19 PM FINDINGS: The aorta is patent from its proximal segment distally into the bifurcation with absent flow in the distal left iliac artery. No aortic aneurysm. Iliac artery calibers are normal. Atherosclerotic plaquing is seen. US/CV duplex aorta [id number] IMPRESSION: Patent aorta with no aneurysm. Occluded left iliac artery distally.
[2023-11-23 14:21] LABS: Basophils % 0.1 %; Eosinophils % 0.1 %; Hematocrit 46.7 % (36-47); Lymphocytes # 1.3 10^3/uL (0.8-4.8); Lymphocytes % 8.6 %; Mean Corpuscular HGB Conc 33.2 g/dL (30-55); Mean Corpuscular Hemoglobin 30.6 pg (27-33); Mean Corpuscular Volume 92.3 fl (85-98); Mean Platelet Volume 10.2 fL (7.4-10.4); Monocytes # 0.7 10^3/uL (0.2-0.9); Monocytes % 4.7 %; Neutrophils # 13.24 10^3/uL (1.8-7.7); Nucleated Red Blood Cells % 0 %; Platelet Count 147 10^3/cmm (157-399); Red Blood Count 5.06 10^6/uL (3.85-5.65); Red Cell Distribution Width 13.4 % (12.1-15.1); White Blood Count 15.38 10^3/uL (3.29-11.43)
[2023-11-23 14:32] LABS: INR 1.02 (0.8-1.2); Partial Thromboplastin Time 19.2 SECONDS (23.9-36.7)
[2023-11-23] MEDS: heparin 5,000 unit/mL INJ 1 mL 4000 UNIT IVP (14:33)
[2023-11-23 14:34] LABS: Alanine Aminotransferase 40 U/L (0-33); Albumin Level 3.7 g/dL (3.5-5.2); Alkaline Phosphatase 146 U/L (35-105); Aspartate Amino Transferase 96 U/L (0-32); Blood Urea Nitrogen 67 mg/dL (8-23); Calcium 9.8 mg/dL (8.5-10.5); Chloride 79 mmol/L (98-107); Globulin 2.6 g/dL (1.3-4.6); Glucose 270 mg/dL (65-115); Osmolality Calculated 303 mOsm/kg (285-295); Sodium 132 mmol/L (136-145); Total Bilirubin 1.8 mg/dL (0.15-1.2); Total Protein 6.3 g/dL (6.6-8.7)
[2023-11-23] MEDS: heparin drip 25,000 UNIT/500 ML PREMIX 19.43 UNIT IV (14:37)
[2023-11-23 14:42] LABS: Anion Gap 13.1 (5-19); Carbon Dioxide 43 mmol/L (22-29); Potassium 3.1 mmol/L (3.5-5.1)
[2023-11-23 15:27] VITALS: BP 127/77; PULSE 72; RESP 15; O2SAT 95
[2023-11-23 16:17] VITALS: BP 136/78; PULSE 71; O2SAT 96
== END 2023-11-23 16:22 ==
PROVIDERS: Emergency Provider Physician Assistant; PCP Nurse Practitioner Family
DX: I99.8 Other disorder of circulatory system (principal); I74.5 Embolism and thrombosis of iliac artery; Z79.4 Long term (current) use of insulin; Z87.891 Personal history of nicotine dependence; I11.0 Hypertensive heart disease with heart failure; I50.9 Heart failure, unspecified; I25.10 Atherosclerotic heart disease of native coronary artery without angina pectoris; Z85.44 Personal history of malignant neoplasm of other female genital organs; E78.5 Hyperlipidemia, unspecified; J44.9 Chronic obstructive pulmonary disease, unspecified
CPT/HCPCS: 36415; 80053; 85025; 85610; 85730; 93926; 93978; 96374; 99285; J1644